=== PATIENT | female | born 1940 | race Caucasian/White ===

== ENCOUNTER 2017-03-22 11:22 | Inpatient (IN) | payer OTHER ==
[~2017-03-22] VITALS: Ht 160 cm; Wt 76.6 kg
[2017-03-22] VITALS (41 sets, daily range): BP systolic 80–112; BP diastolic 41–66; PULSE 61–89; TEMP 36.4–37.1; O2SAT 91–96; BMI 28.5
[~2017-03-22 11:22] MED LIST: ACET325T96 PO; ASCA500 PO; CALCTAB5 PO; GUAI1TAB55 PO; IPRASOL4 INH; METO25TA56 PO; MULT-506 PO; OXYC1TAB3 PO; PRAV20TA PO; SERT-234 PO
[2017-03-22] MEDS ORDERED: ASPI-435 PO (11:37)
[2017-03-22] MEDS ORDERED: CALCTAB7 PO (11:37)
[2017-03-22] MEDS ORDERED: CETI10TA84 PO (11:37)
[2017-03-22] MEDS ORDERED: SODIUM CHLORIDE 0.9% 1000ML 1,000 ML IV STA (12:03)
[2017-03-22] MEDS ORDERED: SODIUM CHLORIDE 0.9% 500ML 500 ML IV STA (12:03)
[2017-03-22] MEDS ORDERED: ALBUT/IPRATROP 3MG/0.5MG NEB 3 ML VIAL INH STA (12:03)
[2017-03-22] MEDS ORDERED: ACETAMINOPHEN 500 MG TAB PO STA (12:03)
[2017-03-22] MEDS ORDERED: METHYLPREDNISOLONE 125 MG VIAL IV STA (12:03)
[2017-03-22] MEDS ORDERED: LEVAQUIN 750MG / 150ML D5W IV STA (12:03)
--- NOTE | 2017-03-22 12:22 | DIAGNOSTIC IMAGING REPORT ---
CHEST ONE VIEW PORTABLE CLINICAL HISTORY: EVALUATE WEAKNESS dyspnea COMPARISON STUDY: 10/30/2016 FINDINGS: Diffuse parenchymal infiltrate throughout the left hemithorax. Right lung remains clear. Diaphragms are smooth. Costophrenic angles are sharp. IMPRESSION: Diffuse infiltrates throughout the left hemithorax. Electronically signed by: Dionisio Varner M.D. 03/22/2017 12:21 PM Dictated Date/Time: 03/22/2017 12:20 PM
[2017-03-22 12:42] LABS: BASO % 0.1 %; BASO ABS # 0.01 K/uL (0-0.2); COMPLETE YES; HEMATOCRIT 35.8 % (37-47); IG% 1.3 %; LYMPH % 3.2 %; LYMPH ABS # 0.55 K/uL (1.2-3.4); MEAN CELL VOLUME 91.3 fL (80-100); MEAN CORPUSCULAR HEMOGLOBIN 30.1 pg (25-34); MEAN PLATELET VOLUME 10.5 fL (7.4-10.4); MONO % 5.7 %; NEUT % 89.7 %; PLATELET COUNT 110 K/uL (130-400); RED BLOOD COUNT 3.92 M/uL (4.2-5.4); WHITE BLOOD COUNT 17.14 K/uL (4.8-10.8)
[2017-03-22 12:57] LABS: INR 1.2 (0.9-1.1); PROTHROMBIN TIME (PATIENT) 12.6 SECONDS (9.0-12.0)
[2017-03-22 13:01] LABS: ALT/SGPT 14 U/L (12-78); AST/SGOT 13 U/L (15-37); BLOOD UREA NITROGEN 33 mg/dl (7-18); CALCIUM 8.9 mg/dl (8.5-10.1); CARBON DIOXIDE 27 mmol/L (21-32); CHLORIDE 107 mmol/L (98-107); GLUCOSE 117 mg/dl (70-99); MAGNESIUM 2.2 mg/dl (1.8-2.4); POTASSIUM 3.9 mmol/L (3.5-5.1); SODIUM 141 mmol/L (136-145)
[2017-03-22 13:09] LABS: ALKALINE PHOSPHATASE 87 U/L (45-117)
[2017-03-22] MEDS ORDERED: PIPERACILLIN/TAZOBACTAM 4.5 GM/100ML D5W IV STA (13:12)
[2017-03-22 13:20] LABS: URINE APPEARANCE CLOUDY (CLEAR); URINE COLOR DK YELLOW; URINE NITRITE NEG (NEG); URINE PH 5.5 (4.5-7.5); URINE SPECIFIC GRAVITY 1.029 (1.000-1.030); UROBILINOGEN NEG (NEG)
[2017-03-22 13:25] LABS: MANUAL MICROSCOPIC REQUIRED? NO; REVIEW REQ? YES; URINE BILIRUBIN NEG (NEG)
[2017-03-22] MEDS ORDERED: SODIUM CHLORIDE 0.9% 1000ML 2,000 ML IV STA (13:32)
[2017-03-22] MEDS ORDERED: ONDANSETRON INJ 2 MG/ML 2 ML VIAL IV PRN (14:30)
[2017-03-22] MEDS ORDERED: ACETAMINOPHEN 325 MG TAB PO PRN (14:30)
[2017-03-22] MEDS ORDERED: ALEN70TA4 PO (14:54)
[2017-03-22] MEDS ORDERED: SERT-234 PO (14:54)
[2017-03-22] MEDS ORDERED: ADVIN25/60 INH (14:54)
[2017-03-22] MEDS ORDERED: PRAV40TA2 PO (14:54)
[2017-03-22] MEDS ORDERED: GUAIFENESIN 600 MG TABCR PO PRN (15:00)
[2017-03-22] MEDS ORDERED: ALBUT/IPRATROP 3MG/0.5MG NEB 3 ML VIAL INH PRN (15:00)
--- NOTE | 2017-03-22 15:06 | EMERGENCY ROOM VISIT NOTE ---
History Report prepared by Jairo: Gwen Stanton Under the Supervision of: Dr. Roberto Phelps M.D. First contact with patient: 11:53 Chief Complaint: FEVER Stated Complaint: HI/LOW BLOOD PRESSURE History of Present Illness The patient is a 77 year old female who presents to the Emergency Room with complaints of a persistent fever for the past few days. She is accompanied by her and daughter. Her daughter reports the patient went to [facility] in [place] for a routine scan yesterday and was found to have hypertension. She notes the patient was also "not acting like herself" after the appointment and has a history of COPD. She had pneumonia just a few months ago and is a current smoker. She complains of still feeling congested and intermittently short of breath. This morning, the patient was seen her PCP, Dr. Hayes and was found to have a fever of 101 degrees and low blood pressure. He referred the patient to the ED for further evaluation. She last took Tylenol for her fever last night. Last night the patient experienced diarrhea, but she states it has resolved. Pt denies LOC, headache, chills, diaphoresis, visual changes, neck pain, chest pain, nausea, vomiting, abdominal pain, back pain, melena, hematochezia, urinary symptoms, numbness, weakness, lymphadenopathy, rash, or other complaints. Source of History: patient, family Onset: past few days Position: other (global) Timing: other (persistent) Modifying Factors (Relieving): other (Acetaminophen) Associated Symptoms: + SOB, + diarrhea Review of Systems See HPI for pertinent positives and negatives. A total of ten systems were reviewed and were otherwise negative. Past Medical & Surgical Medical Problems: (1) AAA (abdominal aortic aneurysm) (2) CKD (chronic kidney disease), stage III (3) H/O: CVA (cerebrovascular accident) (4) Hip fracture (5) Pneumonia (6) Pulmonary nodule (7) Sepsis Surgical Problems: (1) S/P AAA repair Family History Diabetes mellitus Social History Smoking Status: Current Every Day Smoker Alcohol Use: none Drug Use: none Marital Status: Housing Status: lives with family Occupation Status: retired Current/Historical Medications Scheduled Alendronate Sodium (Fosamax), 1 TAB PO WK Ascorbic Acid (Vitamin C), 500 MG PO QAM Aspirin (Aspirin 81), 1 TAB PO QAM Calcium Carbonate-Vitamin D W/ (Caltrate 600 Plus), 1 TAB PO BID Fluticasone Prop/Salmeterol (Advair Diskus 250/50 60 Dose), 1 PUFF INH BID Metoprolol Tartrate (Lopressor) (Lopressor), 25 MG PO BID Multivitamin (Multivitamin), 1 TAB PO DAILY Pravastatin Sodium (Pravastatin Sodium), 1 TAB PO DAILY Sertraline (Zoloft), 100 MG PO DAILY Scheduled PRN Guaifenesin Ext Rel (Mucinex Ext Rel), 600 MG PO Q12 PRN for Cough Ipratropium-Albuterol (Duoneb), 1 TREATMENT INH QID PRN for SOB/Wheezing Allergies Coded Allergies: No Known Allergies (Unverified , 03/22/17) Physical Exam Vital Signs Date Time Temp Pulse Resp B/P Pulse Ox O2 Delivery O2 Flow Rate FiO2 03/22/17 14:01 83 18 92/57 95 Nasal Cannula 2.0 03/22/17 13:23 84 22 90/63 94 Nasal Cannula 2.0 84/43 03/22/17 12:30 95 03/22/17 12:20 80 22 103/56 97 Nasal Cannula 2.0 03/22/17 12:16 88 Room Air 03/22/17 11:29 37.5 80 16 107/53 92 Room Air Physical Exam GENERAL: Awake, alert, dyspneic-appearing, in no distress HENT: Normocephalic, atraumatic. Oropharynx unremarkable. EYES: Normal conjunctiva. Sclera non-icteric. NECK: Supple. No nuchal rigidity. FROM. No JVD. RESPIRATORY: Rhonchi bilaterally, worse on the left. CARDIAC: Regular rate, normal rhythm. Extremities warm and well perfused. Pulses equal. ABDOMEN: Soft, non-distended. No tenderness to palpation. No rebound or guarding. No masses. RECTAL: Deferred. MUSCULOSKELETAL: Chest examination reveals no tenderness. The back is symmetrical on inspection without obvious abnormality. There is no CVA tenderness to palpation. No joint edema. LOWER EXTREMITIES: Round rubbery mass along the medial right ankle, non-tender. Calves are equal size bilaterally and non-tender. No edema. No discoloration. NEURO: Normal sensorium. No sensory or motor deficits noted. SKIN: No rash or jaundice noted. Medical Decision & Procedures ER Provider Diagnostic Interpretation: This X-Ray was reviewed and interpreted by myself and the radiologist. CHEST ONE VIEW PORTABLE CLINICAL HISTORY: EVALUATE WEAKNESS dyspnea COMPARISON STUDY: 10/30/2016 FINDINGS: Diffuse parenchymal infiltrate throughout the left hemithorax. Right lung remains clear. Diaphragms are smooth. Costophrenic angles are sharp. IMPRESSION: Diffuse infiltrates throughout the left hemithorax. Electronically signed by: Dionisio Varner M.D. 03/22/2017 12:21 PM Laboratory Results 03/22/17 12:20 Red Blood Count 3.92, Mean Corpuscular Volume 91.3, Mean Corpuscular Hemoglobin 30.1, Mean Corpuscular Hemoglobin Concent 33.0, Mean Platelet Volume 10.5, Neutrophils (%) (Auto) 89.7, Lymphocytes (%) (Auto) 3.2, Monocytes (%) (Auto) 5.7, Eosinophils (%) (Auto) 0.0, Basophils (%) (Auto) 0.1, Neutrophils # (Auto) 15.39, Lymphocytes # (Auto) 0.55, Monocytes # (Auto) 0.97, Eosinophils # (Auto) 0.00, Basophils # (Auto) 0.01 03/22/17 12:20 Test 03/22/17 12:20 03/22/17 12:29 03/22/17 12:35 03/22/17 13:54 White Blood Count 17.14 K/uL (4.8-10.8) Red Blood Count 3.92 M/uL (4.2-5.4) Hemoglobin 11.8 g/dL (12.0-16.0) Hematocrit 35.8 % (37-47) Mean Corpuscular Volume 91.3 fL (80-100) Mean Corpuscular Hemoglobin 30.1 pg (25-34) Mean Corpuscular Hemoglobin Concent 33.0 g/dl (32-36) Platelet Count 110 K/uL (130-400) Mean Platelet Volume 10.5 fL (7.4-10.4) Neutrophils (%) (Auto) 89.7 % Lymphocytes (%) (Auto) 3.2 % Monocytes (%) (Auto) 5.7 % Eosinophils (%) (Auto) 0.0 % Basophils (%) (Auto) 0.1 % Neutrophils # (Auto) 15.39 K/uL (1.4-6.5) Lymphocytes # (Auto) 0.55 K/uL (1.2-3.4) Monocytes # (Auto) 0.97 K/uL (0.11-0.59) Eosinophils # (Auto) 0.00 K/uL (0-0.5) Basophils # (Auto) 0.01 K/uL (0-0.2) RDW Standard Deviation 47.8 fL (36.4-46.3) RDW Coefficient of Variation 14.3 % (11.5-14.5) Immature Granulocyte % (Auto) 1.3 % Immature Granulocyte # (Auto) 0.22 K/uL (0.00-0.02) Prothrombin Time 12.6 SECONDS (9.0-12.0) Prothromb Time International Ratio 1.2 (0.9-1.1) Activated Partial Thromboplast Time 25.0 SECONDS (21.0-31.0) Partial Thromboplastin Ratio 1.0 Anion Gap 7.0 mmol/L (3-11) Est Creatinine Clear Calc Drug Dose 29.6 ml/min Estimated GFR () 38.3 Estimated GFR (Non- 33.0 BUN/Creatinine Ratio 22.0 (10-20) Calcium Level 8.9 mg/dl (8.5-10.1) Magnesium Level 2.2 mg/dl (1.8-2.4) Total Bilirubin 0.8 mg/dl (0.2-1) Direct Bilirubin 0.3 mg/dl (0-0.2) Aspartate Amino Transf (AST/SGOT) 13 U/L (15-37) Alanine Aminotransferase (ALT/SGPT) 14 U/L (12-78) Alkaline Phosphatase 87 U/L (45-117) Total Creatine Kinase 54 U/L (26-192) Creatine Kinase MB < 0.5 ng/ml (0.5-3.6) Creatine Kinase MB Ratio (0-3.0) Troponin I < 0.015 ng/ml (0-0.045) Pro-B-Type Natriuretic Peptide 5069 pg/ml (0-1800) Total Protein 7.1 gm/dl (6.4-8.2) Albumin 2.8 gm/dl (3.4-5.0) Lipase 82 U/L (73-393) Thyroid Stimulating Hormone (TSH) 0.720 uIu/ml (0.300-4.500) Bedside Lactic Acid Venous 1.88 mmol/L (0.90-1.70) Urine Color DK YELLOW Urine Appearance CLOUDY (CLEAR) Urine pH 5.5 (4.5-7.5) Urine Specific [place] 1.029 (1.000-1.030) Urine Protein 2+ (NEG) Urine Glucose (UA) NEG (NEG) Urine Ketones TRACE (NEG) Urine Occult Blood 3+ (NEG) Urine Nitrite NEG (NEG) Urine Bilirubin NEG (NEG) Urine Urobilinogen NEG (NEG) Urine Leukocyte Esterase TRACE (NEG) Urine WBC (Auto) 1-5 /hpf (0-5) Urine RBC (Auto) 0-4 /hpf (0-4) Urine Hyaline Casts (Auto) 1-5 /lpf (0-5) Urine Epithelial Cells (Auto) 5-10 /lpf (0-5) Urine Bacteria (Auto) NEG (NEG) Urine Crystals See comments (NONE PRSENT) Urine Pathogenic Casts /lpf (0) Urine Yeast (Auto) (NONE PRSENT) Laboratory results reviewed by me Medications Administered Medications (Trade) Dose Ordered Sig/Tadeo Route Start Time Stop Time Status Last Admin Dose Admin Sodium Chloride 500 ml @ 999 mls/hr Q31M STAT IV 03/22/17 12:03 03/22/17 12:33 DC 03/22/17 12:03 999 MLS/HR Sodium Chloride (Nss 1000ml) 1,000 ml @ 125 mls/hr Q8H STAT IV 03/22/17 12:03 03/22/17 20:02 03/22/17 12:49 125 MLS/HR Acetaminophen (Tylenol Tab) 1,000 mg NOW STAT PO 03/22/17 12:03 03/22/17 12:05 DC 03/22/17 12:52 1,000 MG Levofloxacin (Levaquin / D5W) 750 mg NOW STAT IV 03/22/17 12:03 03/22/17 12:05 DC 03/22/17 12:48 750 MG Albuterol/ Ipratropium (Duoneb) 3 ml NOW STAT INH 03/22/17 12:03 03/22/17 12:05 DC 03/22/17 12:48 3 ML Methylprednisolone Sodium Succinate (Solu-Medrol IV) 125 mg NOW STAT IV 03/22/17 12:03 03/22/17 12:05 DC 03/22/17 12:51 125 MG Piperacillin Sod/ Tazobactam Sod 4.5 gm 4.5 gm NOW STAT IV 03/22/17 13:12 03/22/17 13:14 DC 03/22/17 13:23 4.5 GM Sodium Chloride (Nss 1000ml) 2,000 ml @ 999 mls/hr Q2H1M STAT IV 03/22/17 13:32 03/22/17 15:32 03/22/17 13:32 999 MLS/HR ECG Indication: other (fever) Rate (beats per minute): 77 Rhythm: sinus rhythm Findings: PAC, no acute ischemic change, no ectopy ED Course 1201: The patient was evaluated in room C8. A complete history and physical exam was performed. 1203: Solu-Medrol 125 mg IV, DuoNeb 3 ml INH, Levaquin 750 mg IV, Acetaminophen 1000 mg PO, NSS 1000 ml @ 125 mls/hr IV, NSS 500 ml @ 999 mls/hr IV. 1312: Zosyn 4.5 gm IV. 1320: I reevaluated the patient. I discussed my recommendation that she remain in the hospital for further evaluation and management. She verbalized complete understanding and agreement. Her blood pressure has decreased, so I will order a fluid bolus. 1332: NSS 2000 ml @ 999 mls/hr IV. 1338: I discussed the patients case with Mey Chun PA-C, [facility] Hospitalist. The patient will be further evaluated. 1344: I reevaluated the patient. Her blood pressure has improved and she is resting comfortably. Medical Decision Triage Nursing notes reviewed. The patient's presentation and history were concerning for respiratory issues and low blood pressure from the office. Etiologies such as pneumonia, COPD, reactive airway disease, CHF, cardiac ischemia, pulmonary embolism, pneumothorax, musculoskeletal, infections, gastrointestinal, as well as others were entertained. The patient was evaluated. She had a cough present. She had abnormal lung sounds and physical examination. Her O2 saturation was 89% on room air on my examination. The patient was given supplemental oxygen via nasal cannula and did well with this. She was given a Solu-Medrol dose and DuoNeb. Chest imaging was concerning for a left-sided pneumonia. The patient was started on IV Levaquin. Fluid hydration was done. The patient had some mild hypotension here. Her lactate was mildly elevated. She has a leukocytosis and mild anemia as well. Chemistry panel and LFTs were unremarkable. The patient had a slight elevation of lactate. She was given additional IV hydration with saline 2 total over 30 mL/kg. There is concern for sepsis. The patient responded to the IV fluid hydration. Consultation was made with internal medicine. The patient was evaluated in the emergency department for further management. The chart was completed utilizing [employer] Speech voice recognition software. Grammatical errors, random word insertions, pronoun errors, and incomplete sentences are an occasional consequence of this system due to software limitations, ambient noise, and hardware issues. Any formal questions or concerns about the content, text, or information contained within the body of this dictation should be directly addressed to the physician for clarification. Consults Time Called: 1313 Consulting Physician: Mey Chun PA-C, [facility] Hospitalist Returned Call: 1338 I discussed the patients case with Mey Chun PA-C, [facility] Hospitalist. The patient will be further evaluated. Impression Primary Impression: Pneumonia Additional Impression: Sepsis Critical Care I have personally spent greater than 30 minutes of critical care time in the direct management of this patient. This includes bedside care, interpretation of diagnostic studies, and testing, discussion with consultants, patient, and family members, and other required patient management activities. This 30 minutes is in excess of all separately billable procedures. Scribe Attestation The scribe's documentation has been prepared under my direction and personally reviewed by me in its entirety. I confirm that the note above accurately reflects all work, treatment, procedures, and medical decision making performed by me. Departure Information Dispostion Being Evaluated By Hospitalist Raz Jenkins M.D. (PCP) Patient Instructions My [facility] Problem Qualifiers Primary Impression: Pneumonia Pneumonia type: due to unspecified organism Laterality: left Lung location : unspecified part of lung Qualified Codes: J18.9 - Pneumonia, unspecified organism Additional Impression: Sepsis Sepsis type: sepsis due to unspecified organism Qualified Codes: A41.9 - Sepsis, unspecified organism
--- NOTE | 2017-03-22 15:38 | History and Physical ---
History & Physical Date & Time of Service: March 22, 2017 at 14:34 Chief Complaint: Hi/Low Blood Pressure Primary Care Physician: Raz Hayes M.D. History of Present Illness Source: patient, spouse ( at bedside), clinic records This is a 77 year old female with PMH of COPD, history of PE no longer on AC, history of AAA s/p repair, hx CVA without residual deficits, and other problems listed below who was sent to the ED from Dr. Hayes's office for fever and productive cough. Patient reports 2-3 day history of fever, chills, productive cough worsened from baseline. Temp was 101.[address] Hayes's office today. No increased SOB or wheezing from baseline. Denies aspiration. Had diarrhea a few days ago which resolved. Has been eating normally. Pt's states she is more "fidgety" for past few days but remained oriented x 3. Pt denies dizziness , [place], vision change, rhinorrhea, sore throat, chest pain, N/V, dysuria, frequency, urgency, abnormal bleeding. No sick contacts. No recent hospitalization. Pt was hypoxic to 88% on RA in ER and improved to 90s on 2 liters NC. No home oxygen use. Past Medical/Surgical History Medical Problems: (1) AAA (abdominal aortic aneurysm) Permanent Comment: s/p repair of ruptured AAA in 2010 Status: Resolved (2) CKD (chronic kidney disease), stage III Status: Chronic (3) COPD (chronic obstructive pulmonary disease) Status: Chronic (4) Depression Status: Chronic (5) H/O: CVA (cerebrovascular accident) Status: Chronic (6) History of pulmonary embolism Status: Chronic (7) HTN (hypertension) Status: Chronic (8) Hyperlipidemia Status: Chronic (9) Pulmonary nodule Status: Chronic (10) S/P ORIF (open reduction internal fixation) fracture Permanent Comment: left hip Status: Chronic Surgical Problems: (1) S/P AAA repair Permanent Comment: s/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 Desir with bifurcated graft, left femoral thromboendarterectomy with patch angioplasty, right femoral thromboendarterectomy, and right iliofemoral bypass Status: Chronic (2) S/P laparotomy Permanent Comment: 10/16/11- abdominal exploration, wound vac placement; 10/18/11 - abdominal washout and closure. Status: Chronic Family History Diabetes mellitus Social History Smoking Status: Current Some Day Smoker (prior 1-1.5 ppd x 50 years. now "occasionally sneaks a cigarette") Alcohol Use: none Marital Status: Housing status: lives with family (with , daughter, grandson) Occupational Status: retired Allergies Coded Allergies: No Known Allergies (Unverified , 03/22/17) Home Medications Scheduled Alendronate Sodium (Fosamax), 1 TAB PO WK Ascorbic Acid (Vitamin C), 500 MG PO QAM Aspirin (Aspirin 81), 1 TAB PO QAM Calcium Carbonate-Vitamin D W/ (Caltrate 600 Plus), 1 TAB PO BID Fluticasone Prop/Salmeterol (Advair Diskus 250/50 60 Dose), 1 PUFF INH BID Metoprolol Tartrate (Lopressor) (Lopressor), 25 MG PO BID Multivitamin (Multivitamin), 1 TAB PO DAILY Pravastatin Sodium (Pravastatin Sodium), 1 TAB PO DAILY Sertraline (Zoloft), 100 MG PO DAILY Scheduled PRN Guaifenesin Ext Rel (Mucinex Ext Rel), 600 MG PO Q12 PRN for Cough Ipratropium-Albuterol (Duoneb), 1 TREATMENT INH QID PRN for SOB/Wheezing Review of Systems Ten systems reviewed and negative except as listed in HPI. Physical Exam Vital Signs Date Time Temp Pulse Resp B/P Pulse Ox O2 Delivery O2 Flow Rate FiO2 03/22/17 14:01 83 18 92/57 95 Nasal Cannula 2.0 03/22/17 13:23 84 22 90/63 94 Nasal Cannula 2.0 84/43 03/22/17 12:30 95 03/22/17 12:20 80 22 103/56 97 Nasal Cannula 2.0 03/22/17 12:16 88 Room Air 03/22/17 11:29 37.5 80 16 107/53 92 Room Air General Appearance: WD/WN, no apparent distress, + pertinent finding (pleasant alert elderly female, not in distress) Head: normocephalic, atraumatic Eyes: normal inspection, PERRL, EOMI, sclerae normal ENT: hearing grossly normal, pharynx normal Neck: supple, trachea midline Respiratory/Chest: no respiratory distress, no accessory muscle use, + rhonchi (scattered rhonchi), + wheezing (trace expiratory wheezing), + pertinent finding (saturating well on 2L. able to speak full sentences. ) Cardiovascular: regular rate, rhythm, no murmur, normal peripheral pulses Abdomen/GI: normal bowel sounds, non tender, soft Extremities/Musculoskelatal: no calf tenderness, normal capillary refill, no pedal edema Neurologic/Psych: alert, normal mood/affect, oriented x 3, + pertinent finding (no focal deficit on gross examination) Skin: normal color, warm/dry Diagnostics Laboratory Results Results Past 24 Hours Test 03/22/17 12:20 03/22/17 12:29 03/22/17 12:35 03/22/17 13:54 Range/Units White Blood Count 17.14 4.8-10.8 K/uL Red Blood Count 3.92 4.2-5.4 M/uL Hemoglobin 11.8 12.0-16.0 g/dL Hematocrit 35.8 37-47 % Mean Corpuscular Volume 91.3 80-100 fL Mean Corpuscular Hemoglobin 30.1 25-34 pg Mean Corpuscular Hemoglobin Concent 33.0 32-36 g/dl Platelet Count 110 130-400 K/uL Mean Platelet Volume 10.5 7.4-10.4 fL Neutrophils (%) (Auto) 89.7 % Lymphocytes (%) (Auto) 3.2 % Monocytes (%) (Auto) 5.7 % Eosinophils (%) (Auto) 0.0 % Basophils (%) (Auto) 0.1 % Neutrophils # (Auto) 15.39 1.4-6.5 K/uL Lymphocytes # (Auto) 0.55 1.2-3.4 K/uL Monocytes # (Auto) 0.97 0.11-0.59 K/uL Eosinophils # (Auto) 0.00 0-0.5 K/uL Basophils # (Auto) 0.01 0-0.2 K/uL RDW Standard Deviation 47.8 36.4-46.3 fL RDW Coefficient of Variation 14.3 11.5-14.5 % Immature Granulocyte % (Auto) 1.3 % Immature Granulocyte # (Auto) 0.22 0.00-0.02 K/uL Prothrombin Time 12.6 9.0-12.0 SECONDS Prothromb Time International Ratio 1.2 0.9-1.1 Activated Partial Thromboplast Time 25.0 21.0-31.0 SECONDS Partial Thromboplastin Ratio 1.0 Sodium Level 141 136-145 mmol/L Potassium Level 3.9 3.5-5.1 mmol/L Chloride Level 107 98-107 mmol/L Carbon Dioxide Level 27 21-32 mmol/L Anion Gap 7.0 3-11 mmol/L Blood Urea Nitrogen 33 7-18 mg/dl Creatinine 1.50 0.60-1.20 mg/dl Est Creatinine Clear Calc Drug Dose 29.6 ml/min Estimated GFR () 38.3 Estimated GFR (Non- 33.0 BUN/Creatinine Ratio 22.0 10-20 Random Glucose 117 70-99 mg/dl Calcium Level 8.9 8.5-10.1 mg/dl Magnesium Level 2.2 1.8-2.4 mg/dl Total Bilirubin 0.8 0.2-1 mg/dl Direct Bilirubin 0.3 0-0.2 mg/dl Aspartate Amino Transf (AST/SGOT) 13 15-37 U/L Alanine Aminotransferase (ALT/SGPT) 14 12-78 U/L Alkaline Phosphatase 87 45-117 U/L Total Creatine Kinase 54 26-192 U/L Creatine Kinase MB < 0.5 0.5-3.6 ng/ml Creatine Kinase MB Ratio 0-3.0 Troponin I < 0.015 0-0.045 ng/ml Pro-B-Type Natriuretic Peptide 5069 0-1800 pg/ml Total Protein 7.1 6.4-8.2 gm/dl Albumin 2.8 3.4-5.0 gm/dl Lipase 82 73-393 U/L Thyroid Stimulating Hormone (TSH) 0.720 0.300-4.500 uIu/ml Bedside Lactic Acid Venous 1.88 0.90-1.70 mmol/L Urine Color DK YELLOW Urine Appearance CLOUDY CLEAR Urine pH 5.5 4.5-7.5 Urine Specific [place] 1.029 1.000-1.030 Urine Protein 2+ NEG Urine Glucose (UA) NEG NEG Urine Ketones TRACE NEG Urine Occult Blood 3+ NEG Urine Nitrite NEG NEG Urine Bilirubin NEG NEG Urine Urobilinogen NEG NEG Urine Leukocyte Esterase TRACE NEG Urine WBC (Auto) 1-5 0-5 /hpf Urine RBC (Auto) 0-4 0-4 /hpf Urine Hyaline Casts (Auto) 1-5 0-5 /lpf Urine Epithelial Cells (Auto) 5-10 0-5 /lpf Urine Bacteria (Auto) NEG NEG Urine Crystals See comments NONE PRSENT Urine Pathogenic Casts 0 /lpf Urine Yeast (Auto) NONE PRSENT Microbiology Results 03/22/17 Blood Culture, Received Pending 03/22/17 Blood Culture, Received Pending 03/22/17 Urine Culture, Received Pending Diagnostic Radiology CHEST ONE VIEW PORTABLE CLINICAL HISTORY: EVALUATE WEAKNESS dyspnea COMPARISON STUDY: 10/30/2016 FINDINGS: Diffuse parenchymal infiltrate throughout the left hemithorax. Right lung remains clear. Diaphragms are smooth. Costophrenic angles are sharp. IMPRESSION: Diffuse infiltrates throughout the left hemithorax. EKG NSR with occasional PAC, 77 bpm, no ST abnormality Impression Assessment and Plan ACUTE HYPOXIA, POSSIBLE SEPSIS Secondary to CAP in patient with underlying COPD Was hypoxic to 88% on RA; improved to 90s on 2 liters; not on home O2 CXR- diffuse left sided infiltrates Concern for sepsis due to fever of 101.7F [employer] ->afebrile in ER; +WBC 17k, HR > 90 x 1 but no sustained tachycardia; + 1 episode hypotension to 80s systolic -> improved to SBP >90 with IVF's (receiving total of 3500 mL); POC lactic acid 1.88 -> serum lactic acid pending Blood cultures pending; check sputum cx; UA not convincing for infection; urine cx pending Received empiric broad spectrum abx in ER- Zosyn and Levaquin PRN Duonebs Change antibiotics to Rocephin and azithromycin Continue supplemental O2 per protocol RADHA on CKD STAGE III Creat 1.5 from baseline approx 1.0 Possibly due to sepsis, volume loss from recent diarrhea- resolved Monitor renal function Avoid nephrotoxins when able COPD Received Duoneb and IV Solu-Medrol in ER for ? exacerbation No further steroids for now PRN Duonebs Continue Advair HYPERTENSION BP running on low side Continue Lopressor with holding parameters DYSLIPIDEMIA Continue statin H/O DEPRESSION Stable; continue Zoloft DVT PROPHYLAXIS Heparin SQ CODE STATUS Full code per my discussion with the patient DISPOSITION Admit to telemetry Lives with and daughter Follows with Dr. Hayes for primary care Patient seen in collaboration with Dr. Stevenson. Please see his addendum. VTE Prophylaxis VTE Risk Assessment Done? Y/N: Yes Risk Level: Moderate
--- NOTE | 2017-03-22 15:38 | History and Physical ---
History & Physical Date of Service March 22, 2017. History & Physical This is a 77 year old female with a PMH of COPD and occasional tobacco use, hx. 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 of CVA with no residual symptoms, CKD stage 3, presents with fevers, confusion, productive cough. She was seen by Dr. Hayes today and was told to come to the ER for further evaluation. I saw her in the ER, she feels weak, productive cough, fevers/chills. States that this began about three days ago. states she was slightly confused. He states she may have dementia, but it was worse than usual. Her breathing slightly better with antibiotics; she was given Levaquin + Zosyn and Solu- medrol in the ER. VITALS: Last Vital Signs Documentation Date Time Temp Pulse Resp B/P Pulse Ox O2 Delivery O2 Flow Rate FiO2 03/22/17 15:07 37.0 03/22/17 15:06 75 18 96 Nasal Cannula 2.0 GEN: no acute distress HEENT: NCAT CVS: +tachycardia, RRR LUNGS: +end expiratory wheezing, decreased breath sounds ABD: normal bowel sounds, non-tender, +scar EXT: no edema Sepsis secondary to Community Acquired Pneumonia presented with fevers, leukocytosis, tachycardia, productive cough CXR done - diffuse infiltrates at left hemithorax given Zosyn + Levaquin in the ER will switch to Rocephin + Azithromycin nebulizers as need will hold off on prednisone or steroid use repeat CXR in AM given 3.5L of fluids in the ER; repeat lactic acid pending (POC ~ 1.88)
[2017-03-22] MEDS ORDERED: ALBUT/IPRATROP 3MG/0.5MG NEB 3 ML VIAL INH SCH (16:00)
[2017-03-22] MEDS: CEFTRIAXONE SOD INJ 1 GM in DEXTROSE 5% ADD-VANTAGE 50ML 50 ML IV SCH (17:17)
[2017-03-22] MEDS ORDERED: SODIUM CHLORIDE 0.9% 1000ML 1,000 ML IV SCH (18:30)
[2017-03-22] MEDS: AZITHROMYCIN IV 500 MG in DEXTROSE 5% 250ML 250 ML IV SCH (20:36)
[2017-03-22] MEDS: CALCIUM 600MG + VIT D 400 IU TAB PO SCH (20:37)
[2017-03-22] MEDS: METOPROLOL TARTRATE 25 MG TAB PO SCH (20:37)
[2017-03-22] MEDS: FLUTICASONE/SALMETEROL 250/50 (ADVAIR) 14 PUFF/1 INHALER INH SCH (20:37)
[2017-03-22] MEDS: HEPARIN SOD 5000 UNIT/0.5 ML CARP SQ SCH (20:38)
[2017-03-23] VITALS (12 sets, daily range): BP systolic 91–121; BP diastolic 42–71; PULSE 61–80; TEMP 36.6; O2SAT 94–98; Ht 160 cm; Wt 76.6 kg
[2017-03-23] MEDS: HEPARIN SOD 5000 UNIT/0.5 ML CARP SQ SCH ×3 (05:46→20:44)
[2017-03-23 07:53] LABS: HEMATOCRIT 34.1 % (37-47); MEAN CELL VOLUME 91.2 fL (80-100); MEAN CORPUSCULAR HEMOGLOBIN 28.9 pg (25-34); MEAN CORPUSCULAR HGB CONC 31.7 g/dl (32-36); RED BLOOD COUNT 3.74 M/uL (4.2-5.4); WHITE BLOOD COUNT 11.38 K/uL (4.8-10.8)
[2017-03-23 08:24] LABS: MEAN PLATELET VOLUME 10.7 fL (7.4-10.4); PLATELET COUNT 95 K/uL (130-400)
[2017-03-23 08:41] LABS: BUN/CREATININE RATIO 33.5 (10-20); CREATININE 0.88 mg/dl (0.60-1.20); POTASSIUM 3.8 mmol/L (3.5-5.1)
[2017-03-23 09:01] LABS: CALCIUM 8.2 mg/dl (8.5-10.1)
[2017-03-23] MEDS: SERTRALINE HCL 100 MG TAB PO SCH (09:08)
[2017-03-23] MEDS: MULTIVITAMIN TAB PO SCH (09:08)
[2017-03-23] MEDS: FLUTICASONE/SALMETEROL 250/50 (ADVAIR) 14 PUFF/1 INHALER INH SCH ×2 (09:08→20:42)
[2017-03-23] MEDS: ASCORBIC ACID 500 MG TAB PO SCH (09:08)
[2017-03-23] MEDS: PRAVASTATIN SOD 40 MG TAB PO SCH (09:09)
[2017-03-23] MEDS: CALCIUM 600MG + VIT D 400 IU TAB PO SCH ×2 (09:09→20:42)
[2017-03-23] MEDS: METOPROLOL TARTRATE 25 MG TAB PO SCH ×2 (09:09→20:43)
[2017-03-23] MEDS: ASPIRIN 81 MG ECTAB PO SCH (09:09)
--- NOTE | 2017-03-23 09:26 | DIAGNOSTIC IMAGING REPORT ---
CHEST 2 VIEWS ROUTINE CLINICAL HISTORY: f/u infiltrates pneumonia COMPARISON STUDY: 03/22/2017 FINDINGS: Unchanging diffuse parenchymal infiltrative process left hemithorax. Right lung remains generally clear. Interval development of a small left effusion. IMPRESSION: Diffuse left hemithoracic infiltrates stable from the prior exam. Trace pleural effusion left lung base. Electronically signed by: Dionisio Varner M.D. 03/23/2017 9:25 AM Dictated Date/Time: 03/23/2017 9:24 AM
[2017-03-23] MEDS: CEFTRIAXONE SOD INJ 1 GM in DEXTROSE 5% ADD-VANTAGE 50ML 50 ML IV SCH (16:22)
--- NOTE | 2017-03-23 19:59 | Progress Note ---
Medicine Progress Note Date & Time of Visit: March 23, 2017 at 09:40 . Subjective Admitted yesterday with pneumonia. Feels better. No fever. Cough improved; productive of some sputum. No chest pain. No nausea, vomiting, diarrhea. . Objective Last 8 Hrs Date Time Temp Pulse Resp B/P Pulse Ox O2 Delivery O2 Flow Rate FiO2 03/23/17 19:40 36.6 74 74 104/51 97 Nasal Cannula 2.0 03/23/17 16:05 36.6 71 18 107/49 97 Nasal Cannula 2.0 03/23/17 16:00 98 Nasal Cannula 2.0 03/23/17 12:33 36.6 80 16 121/71 95 03/23/17 12:00 96 Nasal Cannula 2.0 Physical Exam: General- no distress Neck- no JVD Lungs- diffuse moderate wheezing, scattered rhonchi Heart- RRR Abdomen- + BS, soft, nontender Extremities- no pretibial edema or calf tenderness Neuro- alert . Laboratory Results: Last 24 Hours Test 03/23/17 07:10 White Blood Count 11.38 K/uL Red Blood Count 3.74 M/uL Hemoglobin 10.8 g/dL Hematocrit 34.1 % Mean Corpuscular Volume 91.2 fL Mean Corpuscular Hemoglobin 28.9 pg Mean Corpuscular Hemoglobin Concent 31.7 g/dl RDW Standard Deviation 47.9 fL RDW Coefficient of Variation 14.2 % Platelet Count 95 K/uL Mean Platelet Volume 10.7 fL Sodium Level 142 mmol/L Potassium Level 3.8 mmol/L Chloride Level 111 mmol/L Carbon Dioxide Level 22 mmol/L Anion Gap 9.0 mmol/L Blood Urea Nitrogen 30 mg/dl Creatinine 0.88 mg/dl Est Creatinine Clear Calc Drug Dose 52.5 ml/min Estimated GFR () 72.9 Estimated GFR (Non- 62.9 BUN/Creatinine Ratio 33.5 Random Glucose 129 mg/dl Calcium Level 8.2 mg/dl Date/Time Source Procedure Growth Status 03/23/17 00:00 Nasal MRSA DNA Surveillance Screen - Final Specimen Negative for MRSA by DNA Probe Complete 03/23/17 15:53 Sputum Expectorated Sputum Gram Stain Pending Received 03/23/17 15:53 Sputum Expectorated Sputum Sputum Culture Pending Received Assessment & Plan PNEUMONIA Community acquired pneumonia, underlying COPD. Receiving azithromycin and ceftriaxone with clinical improvement and declining WBC's. 1/2 blood cultures growing gram positive cocci. Check sputum gram stain, C&S. Nasal MRSA negative, so MRSA pneumonia unlikely. Will need adjustments for Pseudomonas coverage if improvement does not continue. COPD Exacerbation due to pneumonia. Continue nebs. May benefit from short course of steroids. HYPERTENSION BP a bit low. Reduce metoprolol dose. Follow. VTE PROPHYLAXIS SQ heparin. Ambulate. DISPOSITION Expected discharge to home. Family Medicine follow-up with Dr. Hayes. . Current Inpatient Medications: Current Inpatient Medications Medications (Trade) Dose Ordered Sig/Tadeo Route Start Time Stop Time Status Last Admin Dose Admin Heparin Sodium (Porcine) (Heparin Sq 5000 Unit/0.5ml) 5,000 unit Q8 SQ 03/22/17 22:00 04/21/17 21:59 03/23/17 16:22 5,000 UNIT Acetaminophen (Tylenol Tab) 650 mg Q4H PRN PO 03/22/17 14:30 04/21/17 14:29 Ondansetron HCl 4 mg 4 mg Q6H PRN IV 03/22/17 14:30 04/21/17 14:29 Ceftriaxone Sodium 1 gm/ Dextrose 50 ml @ 100 mls/hr Q24H IV 03/22/17 18:00 03/29/17 17:59 03/23/17 16:22 100 MLS/HR Azithromycin/ Dextrose (Zithromax IV/D5 250ml) 255 ml @ 125 mls/hr Q24H IV 03/22/17 20:00 03/29/17 19:59 03/22/17 20:36 125 MLS/HR Albuterol/ Ipratropium (Duoneb) 3 ml Q4R PRN INH 03/22/17 15:00 04/21/17 14:59 Alendronate Sodium (Fosamax Tab) 70 mg Th@0630 PO 03/28/17 06:30 04/27/17 06:29 Ascorbic Acid (Vitamin C Tab) 500 mg QAM PO 03/23/17 09:00 04/22/17 08:59 03/23/17 09:08 500 MG Aspirin (Ecotrin Tab) 81 mg QAM PO 03/23/17 09:00 04/22/17 08:59 03/23/17 09:09 81 MG Calcium/Vitamin D (Caltrate Plus Tab) 1 tab BID PO 03/22/17 21:00 04/21/17 20:59 03/23/17 09:09 1 TAB Salmeterol Xinafoate/ Fluticasone (Advair Diskus 250/50 Inh) 1 puff BID INH 03/22/17 21:00 04/21/17 20:59 03/23/17 09:08 1 PUFF Guaifenesin (Mucinex Contr Rel Tab) 600 mg Q12 PRN PO 03/22/17 15:00 04/21/17 14:59 03/23/17 09:08 600 MG Metoprolol Tartrate (Lopressor Tab) 25 mg BID PO 03/22/17 21:00 04/21/17 20:59 03/23/17 09:09 25 MG Multivitamins (Multivitamin Tab) 1 tab DAILY PO 03/23/17 09:00 04/22/17 08:59 03/23/17 09:08 1 TAB Pravastatin Sodium (Pravachol Tab) 40 mg DAILY PO 03/23/17 09:00 04/22/17 08:59 03/23/17 09:09 40 MG Sertraline HCl (Zoloft Tab) 100 mg DAILY PO 03/23/17 09:00 04/22/17 08:59 03/23/17 09:08 100 MG
[2017-03-23] MEDS ORDERED: METHYLPREDNISOLONE IV 40 MG in SYRINGE 0 ML IV ONE (20:00)
[2017-03-23] MEDS: AZITHROMYCIN IV 500 MG in DEXTROSE 5% 250ML 250 ML IV SCH (20:23)
[2017-03-24] VITALS (11 sets, daily range): BP systolic 107–144; BP diastolic 62–76; PULSE 71–82; TEMP 36.3–36.8; O2SAT 92–97
[2017-03-24] MEDS: HEPARIN SOD 5000 UNIT/0.5 ML CARP SQ SCH ×3 (05:49→21:07)
[2017-03-24] MEDS: CALCIUM 600MG + VIT D 400 IU TAB PO SCH ×2 (09:01→21:05)
[2017-03-24] MEDS: FLUTICASONE/SALMETEROL 250/50 (ADVAIR) 14 PUFF/1 INHALER INH SCH ×2 (09:01→21:04)
[2017-03-24] MEDS: METOPROLOL TARTRATE 25 MG TAB PO SCH ×2 (09:02→21:08)
[2017-03-24] MEDS: ASPIRIN 81 MG ECTAB PO SCH (09:02)
[2017-03-24] MEDS: MULTIVITAMIN TAB PO SCH (09:02)
[2017-03-24] MEDS: ASCORBIC ACID 500 MG TAB PO SCH (09:03)
[2017-03-24] MEDS: PRAVASTATIN SOD 40 MG TAB PO SCH (09:03)
[2017-03-24] MEDS: SERTRALINE HCL 100 MG TAB PO SCH (09:03)
--- NOTE | 2017-03-24 11:55 | Progress Note ---
Medicine Progress Note Date & Time of Visit: March 24, 2017 at 11:00 . Subjective Feeling better. No fever or chills. Persistent cough, minimally productive. Mild SOB. Weaned off O2. No CP. No nausea, vomiting, diarrhea. . Objective Last 8 Hrs Date Time Temp Pulse Resp B/P Pulse Ox O2 Delivery O2 Flow Rate FiO2 03/24/17 09:15 95 Nasal Cannula 1.0 03/24/17 08:34 36.7 82 16 130/64 94 Nasal Cannula 03/24/17 04:00 36.8 71 16 113/65 97 Nasal Cannula 2.0 03/24/17 04:00 Nasal Cannula 2.0 Physical Exam: General- no distress Neck- no JVD Lungs- diffuse mild wheezing, scattered rhonchi Heart- RRR Abdomen- + BS, soft, nontender Extremities- no pretibial edema or calf tenderness Neuro- alert . Laboratory Results: Date/Time Source Procedure Growth Status 03/23/17 15:53 Sputum Expectorated Sputum Gram Stain - Final Resulted 03/23/17 15:53 Sputum Expectorated Sputum Sputum Culture - Preliminary PIN-POINT GROWTH PRESENT, REINCUBATING. Resulted Assessment & Plan PNEUMONIA Community acquired pneumonia, underlying COPD. Receiving azithromycin and ceftriaxone with clinical improvement and declining WBC's. 1/2 blood cultures growing gram positive cocci = Strep pneumoniae, sensitivities pending. Sputum culture negative so far. Continue azithromycin and ceftriaxone. ACUTE KIDNEY INJURY Serum creatinine 1.5 at time of admission. Probable acute kidney injury due to volume depletion. Received IV fluids with improvement. Creatinine 03/23/17 was 0.88. COPD Exacerbation due to pneumonia. Continue nebs + short course of steroids. HYPERTENSION BP a bit low. Reduced metoprolol dose. Follow. VTE PROPHYLAXIS SQ heparin. Ambulate. DISPOSITION Expected discharge to home. Family Medicine follow-up with Dr. Hayes. . Current Inpatient Medications: Current Inpatient Medications Medications (Trade) Dose Ordered Sig/Tadeo Route Start Time Stop Time Status Last Admin Dose Admin Heparin Sodium (Porcine) (Heparin Sq 5000 Unit/0.5ml) 5,000 unit Q8 SQ 03/22/17 22:00 04/21/17 21:59 03/24/17 05:49 5,000 UNIT Acetaminophen (Tylenol Tab) 650 mg Q4H PRN PO 03/22/17 14:30 04/21/17 14:29 Ondansetron HCl 4 mg 4 mg Q6H PRN IV 03/22/17 14:30 04/21/17 14:29 Ceftriaxone Sodium 1 gm/ Dextrose 50 ml @ 100 mls/hr Q24H IV 03/22/17 18:00 03/29/17 17:59 03/23/17 16:22 100 MLS/HR Azithromycin/ Dextrose (Zithromax IV/D5 250ml) 255 ml @ 125 mls/hr Q24H IV 03/22/17 20:00 03/29/17 19:59 03/23/17 20:23 125 MLS/HR Albuterol/ Ipratropium (Duoneb) 3 ml Q4R PRN INH 03/22/17 15:00 04/21/17 14:59 Alendronate Sodium (Fosamax Tab) 70 mg Th@0630 PO 03/28/17 06:30 04/27/17 06:29 Ascorbic Acid (Vitamin C Tab) 500 mg QAM PO 03/23/17 09:00 04/22/17 08:59 03/24/17 09:03 500 MG Aspirin (Ecotrin Tab) 81 mg QAM PO 03/23/17 09:00 04/22/17 08:59 03/24/17 09:02 81 MG Calcium/Vitamin D (Caltrate Plus Tab) 1 tab BID PO 03/22/17 21:00 04/21/17 20:59 03/24/17 09:01 1 TAB Salmeterol Xinafoate/ Fluticasone (Advair Diskus 250/50 Inh) 1 puff BID INH 03/22/17 21:00 04/21/17 20:59 03/24/17 09:01 1 PUFF Guaifenesin (Mucinex Contr Rel Tab) 600 mg Q12 PRN PO 03/22/17 15:00 04/21/17 14:59 03/23/17 09:08 600 MG Multivitamins (Multivitamin Tab) 1 tab DAILY PO 03/23/17 09:00 04/22/17 08:59 03/24/17 09:02 1 TAB Pravastatin Sodium (Pravachol Tab) 40 mg DAILY PO 03/23/17 09:00 04/22/17 08:59 03/24/17 09:03 40 MG Sertraline HCl (Zoloft Tab) 100 mg DAILY PO 03/23/17 09:00 04/22/17 08:59 03/24/17 09:03 100 MG Metoprolol Tartrate (Lopressor Tab) 12.5 mg BID PO 03/23/17 21:00 04/22/17 20:59 03/24/17 09:02 12.5 MG Prednisone (PredniSONE TAB) 40 mg DAILY PO 03/24/17 09:00 04/23/17 08:59 03/24/17 09:03 40 MG
[2017-03-24] MEDS: CEFTRIAXONE SOD INJ 1 GM in DEXTROSE 5% ADD-VANTAGE 50ML 50 ML IV SCH (18:13)
[2017-03-24] MEDS: AZITHROMYCIN IV 500 MG in DEXTROSE 5% 250ML 250 ML IV SCH (20:08)
[2017-03-25] MEDS: HEPARIN SOD 5000 UNIT/0.5 ML CARP SQ SCH ×3 (05:59→20:14)
[2017-03-25 07:31] VITALS: BP 163/84; PULSE 74; TEMP 37; O2SAT 93
[2017-03-25] MEDS: FLUTICASONE/SALMETEROL 250/50 (ADVAIR) 14 PUFF/1 INHALER INH SCH ×2 (07:59→20:11)
[2017-03-25] MEDS: ASPIRIN 81 MG ECTAB PO SCH (08:00)
[2017-03-25] MEDS: CALCIUM 600MG + VIT D 400 IU TAB PO SCH ×2 (08:00→20:12)
[2017-03-25] MEDS: MULTIVITAMIN TAB PO SCH (08:00)
[2017-03-25] MEDS: PRAVASTATIN SOD 40 MG TAB PO SCH (08:00)
[2017-03-25] MEDS: ASCORBIC ACID 500 MG TAB PO SCH (08:01)
[2017-03-25] MEDS: SERTRALINE HCL 100 MG TAB PO SCH (08:01)
[2017-03-25] MEDS: METOPROLOL TARTRATE 25 MG TAB PO SCH ×2 (08:02→20:12)
--- NOTE | 2017-03-25 10:04 | Clinical Documentation Query ---
QUERY 1 OF [address] HAGER, The diagnosis of sepsis appeared in both the ER impression and the H/P. It has since been removed from the progress notes. In your clinical opinion is this patient being managed for: ( ) Sepsis, POA ( ) Sepsis ruled out (x ) Other explanation of clinical findings (Please Explain) ( ) Unable to determine (Please Define) ( ) Need to Discuss ( ) Not Agree DID NOT APPEAR TO HAVE DEFINITE SEPSIS WAS AFEBRILE. NOT TACHYCARDIC. INCREASED RR PROBABLY DUE TO PNEUMONIA. DECREASED BP PROBABLY DUE TO DEHYDRATION. Please clarify and document your clinical opinion in the progress notes and discharge summary. Terms such as "probable", "suspected", "likely", "questionable", "possible", or "still to be ruled out" are acceptable. QUERY 2 OF 2 In your clinical opinion is this patient being managed for: ( x ) Metabolic encephalopathy ( ) Other explanation of clinical findings (Please Explain) ( ) Unable to determine (Please Define) ( ) Need to Discuss ( ) Not Agree The medical record reflects the following clinical findings, treatment, and risk factors. Clinical Indicators: 77 yo female presenting with pneumonia and COPD exacerbation. She is described in the H/P as being slightly confused, worse than usual. Temp reportedly 101 at PCP's office. Cr 1.50 Treatment: IV fluid boluses then continuous, po APAP, IV levaquin, IV solumedrol, duonebs, IV zosyn, O2 support, IV Rocephin, IV azithromycin, blood and urine cx Risk Factors: age,? of dementia, pneumonia, RADHA Please clarify and document your clinical opinion in the progress notes and discharge summary. Terms such as "probable", "suspected", "likely", "questionable", "possible", or "still to be ruled out" are acceptable. IF IN AGREEMENT, YOU MUST DOCUMENT ABOVE DIAGNOSTIC STATEMENT IN DAILY PROGRESS NOTES AND DISCHARGE SUMMARY. This document is not part of the patient's record. Thank You, Sandi Noel, RN [phone]
[2017-03-25 15:32] VITALS: BP 152/80; PULSE 74; TEMP 36.8; O2SAT 95
[2017-03-25] MEDS: CEFTRIAXONE SOD INJ 1 GM in DEXTROSE 5% ADD-VANTAGE 50ML 50 ML IV SCH (18:06)
[2017-03-25] MEDS: AZITHROMYCIN IV 500 MG in DEXTROSE 5% 250ML 250 ML IV SCH (20:11)
--- NOTE | 2017-03-25 23:19 | Progress Note ---
Medicine Progress Note Date & Time of Visit: March 25, 2017 at 09:45 . Subjective No fever or chills. Persistent congested cough. Less SOB. No chest pain. No nausea or vomiting. Had 2 loose stools this morning. . Objective Last 8 Hrs Date Time Temp Pulse Resp B/P Pulse Ox O2 Delivery O2 Flow Rate FiO2 03/25/17 20:00 Room Air 03/25/17 16:00 Room Air 03/25/17 15:32 36.8 74 16 152/80 95 Room Air Physical Exam: General- no distress Neck- no JVD Lungs- diffuse mild wheezing, few scattered rhonchi Heart- RRR Abdomen- + BS, soft, nontender Extremities- no pretibial edema or calf tenderness Neuro- alert . Assessment & Plan PNEUMONIA Presented with cough and reported fever. Chest x-ray demonstrated left lung infiltrates. Community acquired pneumonia, underlying COPD. Not overtly septic- no documented fever, not tachycardic, tachypnea probably due to pneumonia, hypotension probably due to dehydration. Receiving azithromycin and ceftriaxone with clinical improvement and declining WBC's. 1/2 blood cultures grew gram positive cocci = Strep pneumoniae, penicillin susceptible. Sputum culture growing Aspergillus sp. Suspect colonization, but will need to be followed. Continue azithromycin and ceftriaxone. ACUTE KIDNEY INJURY Serum creatinine 1.5 at time of admission. Probable acute kidney injury due to volume depletion. Received IV fluids with improvement. Creatinine 03/23/17 was 0.88. COPD Exacerbation due to pneumonia. Continue nebs + short course of steroids. HYPERTENSION BP low at times, probably due to dehydration. Reduced metoprolol dose. Follow. DIARRHEA 2 loose stools today. Check for C diff. VTE PROPHYLAXIS SQ heparin. Ambulate. DISPOSITION Expected discharge to home. Family Medicine follow-up with Dr. Hayes. . Current Inpatient Medications: Current Inpatient Medications Medications (Trade) Dose Ordered Sig/Tadeo Route Start Time Stop Time Status Last Admin Dose Admin Heparin Sodium (Porcine) (Heparin Sq 5000 Unit/0.5ml) 5,000 unit Q8 SQ 03/22/17 22:00 04/21/17 21:59 03/25/17 20:14 5,000 UNIT Acetaminophen (Tylenol Tab) 650 mg Q4H PRN PO 03/22/17 14:30 04/21/17 14:29 Ondansetron HCl 4 mg 4 mg Q6H PRN IV 03/22/17 14:30 04/21/17 14:29 Ceftriaxone Sodium 1 gm/ Dextrose 50 ml @ 100 mls/hr Q24H IV 03/22/17 18:00 03/29/17 17:59 03/25/17 18:06 100 MLS/HR Azithromycin/ Dextrose (Zithromax IV/D5 250ml) 255 ml @ 125 mls/hr Q24H IV 03/22/17 20:00 03/29/17 19:59 03/25/17 20:11 125 MLS/HR Albuterol/ Ipratropium (Duoneb) 3 ml Q4R PRN INH 03/22/17 15:00 04/21/17 14:59 Ascorbic Acid (Vitamin C Tab) 500 mg QAM PO 03/23/17 09:00 04/22/17 08:59 03/25/17 08:01 500 MG Aspirin (Ecotrin Tab) 81 mg QAM PO 03/23/17 09:00 04/22/17 08:59 03/25/17 08:00 81 MG Calcium/Vitamin D (Caltrate Plus Tab) 1 tab BID PO 03/22/17 21:00 04/21/17 20:59 03/25/17 20:12 1 TAB Salmeterol Xinafoate/ Fluticasone (Advair Diskus 250/50 Inh) 1 puff BID INH 03/22/17 21:00 04/21/17 20:59 03/25/17 20:11 1 PUFF Guaifenesin (Mucinex Contr Rel Tab) 600 mg Q12 PRN PO 03/22/17 15:00 04/21/17 14:59 03/23/17 09:08 600 MG Multivitamins (Multivitamin Tab) 1 tab DAILY PO 03/23/17 09:00 04/22/17 08:59 03/25/17 08:00 1 TAB Pravastatin Sodium (Pravachol Tab) 40 mg DAILY PO 03/23/17 09:00 04/22/17 08:59 03/25/17 08:00 40 MG Sertraline HCl (Zoloft Tab) 100 mg DAILY PO 03/23/17 09:00 04/22/17 08:59 03/25/17 08:01 100 MG Metoprolol Tartrate (Lopressor Tab) 12.5 mg BID PO 03/23/17 21:00 04/22/17 20:59 03/25/17 20:12 12.5 MG Prednisone (PredniSONE TAB) 40 mg DAILY PO 03/24/17 09:00 04/23/17 08:59 03/25/17 08:00 40 MG
[2017-03-25 23:49] VITALS: BP 150/81; PULSE 60; TEMP 36.9; O2SAT 93
[2017-03-26] MEDS: HEPARIN SOD 5000 UNIT/0.5 ML CARP SQ SCH ×2 (05:41→13:34)
[2017-03-26 06:57] VITALS: BP 169/89; PULSE 67; TEMP 37.2; O2SAT 92
[2017-03-26] MEDS: FLUTICASONE/SALMETEROL 250/50 (ADVAIR) 14 PUFF/1 INHALER INH SCH (07:51)
[2017-03-26] MEDS: ASCORBIC ACID 500 MG TAB PO SCH (07:51)
[2017-03-26] MEDS: ASPIRIN 81 MG ECTAB PO SCH (07:51)
[2017-03-26] MEDS: METOPROLOL TARTRATE 25 MG TAB PO SCH (07:51)
[2017-03-26] MEDS: MULTIVITAMIN TAB PO SCH (07:51)
[2017-03-26] MEDS: CALCIUM 600MG + VIT D 400 IU TAB PO SCH (07:52)
[2017-03-26] MEDS: SERTRALINE HCL 100 MG TAB PO SCH (07:52)
[2017-03-26] MEDS: PRAVASTATIN SOD 40 MG TAB PO SCH (07:52)
--- NOTE | 2017-03-26 13:41 | Progress Note ---
Medicine Progress Note Date & Time of Visit: March 26, 2017 at 11:10 . Subjective Doing well. No fever or chills. Cough much better. Minimal dyspnea on exertion. No pleuritic chest pain or angina. No nausea, vomiting, diarrhea. Ambulating. . Objective Last 8 Hrs Date Time Temp Pulse Resp B/P Pulse Ox O2 Delivery O2 Flow Rate FiO2 03/26/17 08:00 Room Air 03/26/17 06:57 37.2 67 18 169/89 92 Room Air Physical Exam: General- no distress Neck- no JVD Lungs- diffuse mild wheezing Heart- RRR Abdomen- + BS, soft, nontender Extremities- no pretibial edema or calf tenderness Neuro- alert . Assessment & Plan PNEUMONIA (Strep pneumoniae with bacteremia) Presented with cough and reported fever. Chest x-ray demonstrated left lung infiltrates. Community acquired pneumonia, underlying COPD. Not overtly septic- no documented fever, not tachycardic, tachypnea probably due to pneumonia, hypotension probably due to dehydration. Received azithromycin and ceftriaxone with clinical improvement and declining WBC's. 1/2 blood cultures grew gram positive cocci = Strep pneumoniae, penicillin susceptible. Sputum culture growing Aspergillus fumigatus. Suspect colonization, but will need pulmonary referral if there are ongoing clinical or radiographic concerns. Oxygenating well on room air. Discharge on amoxicillin 1000 mg TID x 5 days to treat for total of 10 days. Will need follow-up imaging in 4-6 weeks to assure resolution. ACUTE KIDNEY INJURY Serum creatinine 1.5 at time of admission. Probable acute kidney injury due to volume depletion. Received IV fluids with improvement. Creatinine 03/23/17 was 0.88. COPD Exacerbation due to pneumonia. Continue nebs + short course of steroids. HYPERTENSION Continue metoprolol. DIARRHEA Resolved. VTE PROPHYLAXIS SQ heparin. Ambulate. DISPOSITION Expected discharge to home. Family Medicine follow-up with Dr. Hayes. . Procedures: cardiac monitoring IV fluids . Current Inpatient Medications: Current Inpatient Medications Medications (Trade) Dose Ordered Sig/Tadeo Route Start Time Stop Time Status Last Admin Dose Admin Heparin Sodium (Porcine) (Heparin Sq 5000 Unit/0.5ml) 5,000 unit Q8 SQ 03/22/17 22:00 04/21/17 21:59 03/26/17 13:34 5,000 UNIT Acetaminophen (Tylenol Tab) 650 mg Q4H PRN PO 03/22/17 14:30 04/21/17 14:29 Ondansetron HCl 4 mg 4 mg Q6H PRN IV 03/22/17 14:30 04/21/17 14:29 Ceftriaxone Sodium 1 gm/ Dextrose 50 ml @ 100 mls/hr Q24H IV 03/22/17 18:00 03/29/17 17:59 03/25/17 18:06 100 MLS/HR Azithromycin/ Dextrose (Zithromax IV/D5 250ml) 255 ml @ 125 mls/hr Q24H IV 03/22/17 20:00 03/29/17 19:59 03/25/17 20:11 125 MLS/HR Albuterol/ Ipratropium (Duoneb) 3 ml Q4R PRN INH 03/22/17 15:00 04/21/17 14:59 Ascorbic Acid (Vitamin C Tab) 500 mg QAM PO 03/23/17 09:00 04/22/17 08:59 03/26/17 07:51 500 MG Aspirin (Ecotrin Tab) 81 mg QAM PO 03/23/17 09:00 04/22/17 08:59 03/26/17 07:51 81 MG Calcium/Vitamin D (Caltrate Plus Tab) 1 tab BID PO 03/22/17 21:00 04/21/17 20:59 03/26/17 07:52 1 TAB Salmeterol Xinafoate/ Fluticasone (Advair Diskus 250/50 Inh) 1 puff BID INH 03/22/17 21:00 04/21/17 20:59 03/26/17 07:51 1 PUFF Guaifenesin (Mucinex Contr Rel Tab) 600 mg Q12 PRN PO 03/22/17 15:00 04/21/17 14:59 03/23/17 09:08 600 MG Multivitamins (Multivitamin Tab) 1 tab DAILY PO 03/23/17 09:00 04/22/17 08:59 03/26/17 07:51 1 TAB Pravastatin Sodium (Pravachol Tab) 40 mg DAILY PO 03/23/17 09:00 04/22/17 08:59 03/26/17 07:52 40 MG Sertraline HCl (Zoloft Tab) 100 mg DAILY PO 03/23/17 09:00 04/22/17 08:59 03/26/17 07:52 100 MG Metoprolol Tartrate (Lopressor Tab) 12.5 mg BID PO 03/23/17 21:00 04/22/17 20:59 03/26/17 07:51 12.5 MG Prednisone (PredniSONE TAB) 40 mg DAILY PO 03/24/17 09:00 04/23/17 08:59 03/26/17 07:52 40 MG
[2017-03-26] MEDS ORDERED: PRED10TA PO (14:30)
[2017-03-26] MEDS ORDERED: AMX500 PO (14:30)
--- NOTE | 2017-03-26 14:35 | Discharge Instructions ---
Discharge Instructions Date of Service March 26, 2017. Admission Reason for Admission: pneumonia . Discharge Discharge Diagnosis / Problem: pneumonia Discharge Goals Goal(s): Decrease discomfort, Improve disease control Activity Recommendations Activity Limitations: as noted below Lifting Limitations: gradually increase as tolerated . Instructions / Follow-Up Instructions / Follow-Up APPOINTMENTS: FAMILY MEDICINE 04/01/2017 12:40 PM Raz Hayes MD INSTRUCTIONS: New medications for pneumonia: amoxicillin 500 mg pills, take 2 pills 3 times a day until gone prednisone 10 mg pills, take 4 pills on 03/27/17, then stop New prescriptions were sent to [facility] in [place]. You should have a repeat chest x-ray in 4-6weeks to make certain that the pneumonia has cleared up. Seek medical attention if you have: * temperature above 101 * chest pain or trouble breathing * abdominal pain, nausea, vomiting * diarrhea, dark stools or bloody stools * any unanswered questions or concerns Call 911 if symptoms are severe. Call if you have any questions or problems. My cell # is [phone]. You can also reach a [facility] hospitalist on duty at [facility] 24 hours a day by calling [phone]. Please take good care of yourself. Roberto Shepherd . Current Hospital Diet Patient's current hospital diet: AHA Diet (Heart Healthy) Discharge Diet Recommended Diet: AHA Diet (Heart Healthy) Pending Studies Studies pending at discharge: no Medical Emergencies . Who to Call and When: Medical Emergencies: If at any time you feel your situation is an emergency, please call 911 immediately. . Non-Emergent Contact Non-Emergency issues call your: Primary Care Provider . . "Provider Documentation" section prepared by Roberto Shepherd. . VTE Core Measure Inpt VTE Proph given/why not?: Unfractionated heparin SQ
[2017-03-26 14:48] VITALS: BP 169/89; PULSE 67; TEMP 37.2; O2SAT 92
[2017-03-26 14:59] VITALS: BP 124/69; PULSE 62; TEMP 36.7; O2SAT 91
--- NOTE | 2017-03-26 20:19 | Discharge Summary ---
Discharge Summary Date of Service March 26, 2017. Discharge Summary Admission Date: March 22, 2017 at 14:26 Discharge Date: March 26, 2017 Discharge Disposition: Home Principal Diagnosis: pneumococcal pneumonia with bacteremia small left pleural effusion . Secondary Diagnoses/Problems: Chronic Medical Problems: (1) AAA (abdominal aortic aneurysm) Permanent Comment: s/p repair of ruptured AAA in 2010 Status: Resolved (2) CKD (chronic kidney disease), stage III Status: Chronic (3) COPD (chronic obstructive pulmonary disease) Status: Chronic (4) Depression Status: Chronic (5) H/O: CVA (cerebrovascular accident) Status: Chronic (6) History of pulmonary embolism Status: Chronic (7) HTN (hypertension) Status: Chronic (8) Hyperlipidemia Status: Chronic (9) Pulmonary nodule Status: Chronic (10) S/P ORIF (open reduction internal fixation) fracture Permanent Comment: left hip Status: Chronic Surgical Problems: (1) S/P AAA repair Permanent Comment: s/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 Desir with bifurcated graft, left femoral thromboendarterectomy with patch angioplasty, right femoral thromboendarterectomy, and right iliofemoral bypass Status: Chronic (2) S/P laparotomy Permanent Comment: 10/16/11- abdominal exploration, wound vac placement; 10/18/11 - abdominal washout and closure. Status: Chronic . Procedures: cardiac monitoring IV fluids . Pending Studies/Follow-Up: Please check follow-up chest x-ray in 4-6 weeks. . Medication Reconciliation New Medications: Amoxicillin (Amoxicillin) 500 Mg Cap 1000 MG PO TID, #30 CAP Take 2 pills 3 times a day until gone. Prednisone (Prednisone) 10 Mg Tab 40 MG PO DAILY, #4 TAB Take 4 pills (40 mg) on 03/27/17, then discontinue. Continued Medications: Alendronate Sodium (Fosamax) 70 Mg Tab 1 TAB PO WK for 28 Days, #4 TAB 3 Refills Ascorbic Acid (Vitamin C) 500 Mg Tab 500 MG PO QAM Aspirin (Aspirin 81) 81 Mg Tab 1 TAB PO QAM Calcium Carbonate-Vitamin D W/ (Caltrate 600 Plus) 1 Tab Tab 1 TAB PO BID, TAB Fluticasone Prop/Salmeterol (Advair Diskus 250/50 60 Dose) 1 Ea Aerp 1 PUFF INH BID, INHALER Guaifenesin Ext Rel (Mucinex Ext Rel) 600 Mg Tab 600 MG PO Q12 PRN for Cough, TAB Ipratropium-Albuterol (Duoneb) 3 Ml Nebu 1 TREATMENT INH QID PRN for SOB/Wheezing, INHA Metoprolol Tartrate (Lopressor) (Lopressor) 25 Mg Tab 25 MG PO BID, TAB Multivitamin (Multivitamin) Tab 1 TAB PO DAILY, TAB Pravastatin Sodium (Pravastatin Sodium) 40 Mg Tab 1 TAB PO DAILY for 90 Days, #90 TAB 1 Refill Sertraline (Zoloft) 100 Mg Tab 100 MG PO DAILY, TAB Admission Information HPI (per Admitting provider): This is a 77 year old female with PMH of COPD, history of PE no longer on AC, history of AAA s/p repair, hx CVA without residual deficits, and other problems listed below who was sent to the ED from Dr. Hayes's office for fever and productive cough. Patient reports 2-3 day history of fever, chills, productive cough worsened from baseline. Temp was 101.[address] Hayes's office today. No increased SOB or wheezing from baseline. Denies aspiration. Had diarrhea a few days ago which resolved. Has been eating normally. Pt's states she is more "fidgety" for past few days but remained oriented x 3. Pt denies dizziness , CUENCA, vision change, rhinorrhea, sore throat, chest pain, N/V, dysuria, frequency, urgency, abnormal bleeding. No sick contacts. No recent hospitalization. Pt was hypoxic to 88% on RA in ER and improved to 90s on 2 liters NC. No home oxygen use. . Physical Exam (per Admitting): General Appearance: WD/WN, no apparent distress, + pertinent finding ( pleasant alert elderly female, not in distress) Head: normocephalic, atraumatic Eyes: normal inspection, PERRL, EOMI, sclerae normal ENT: hearing grossly normal, pharynx normal Neck: supple, trachea midline Respiratory/Chest: no respiratory distress, no accessory muscle use, + rhonchi (scattered rhonchi), + wheezing (trace expiratory wheezing), + pertinent finding (saturating well on 2L. able to speak full sentences. ) Cardiovascular: regular rate, rhythm, no murmur, normal peripheral pulses Abdomen/GI: normal bowel sounds, non tender, soft Extremities/Musculoskelatal: no calf tenderness, normal capillary refill, no pedal edema Neurologic/Psych: alert, normal mood/affect, oriented x 3, + pertinent finding (no focal deficit on gross examination) Skin: normal color, warm/dry Hospital Course PNEUMONIA (Strep pneumoniae with bacteremia) Presented with cough and reported fever. Chest x-ray demonstrated left lung infiltrates. Community acquired pneumonia, underlying COPD. Not overtly septic- no documented fever, not tachycardic, tachypnea probably due to pneumonia, hypotension probably due to dehydration. Received azithromycin and ceftriaxone with clinical improvement and declining WBC's. 1/2 blood cultures grew gram positive cocci = Strep pneumoniae, penicillin susceptible. Sputum culture growing Aspergillus fumigatus. Suspect colonization, but will need pulmonary referral if there are ongoing clinical or radiographic concerns. Oxygenating well on room air. Discharge on amoxicillin 1000 mg TID x 5 days to treat for total of 10 days. Will need follow-up imaging in 4-6 weeks to assure resolution. ACUTE KIDNEY INJURY Serum creatinine 1.5 at time of admission. Probable acute kidney injury due to volume depletion. Received IV fluids with improvement. Creatinine 03/23/17 was 0.88. COPD Exacerbation due to pneumonia. Continue nebs + short course of steroids. HYPERTENSION Continue metoprolol. DIARRHEA Resolved. VTE PROPHYLAXIS SQ heparin. Ambulate. DISPOSITION Expected discharge to home. Family Medicine follow-up with Dr. Hayes. . Total time spent on discharge = 40 min. This includes examination of the patient, discharge planning, medication reconciliation, and communication with other providers. . Discharge Instructions Date of Service March 26, 2017. Admission Reason for Admission: pneumonia . Discharge Discharge Diagnosis / Problem: pneumonia Discharge Goals Goal(s): Decrease discomfort, Improve disease control Activity Recommendations Activity Limitations: as noted below Lifting Limitations: gradually increase as tolerated . Instructions / Follow-Up Instructions / Follow-Up APPOINTMENTS: FAMILY MEDICINE 04/01/2017 12:40 PM Raz Hayes MD INSTRUCTIONS: New medications for pneumonia: amoxicillin 500 mg pills, take 2 pills 3 times a day until gone prednisone 10 mg pills, take 4 pills on 03/27/17, then stop New prescriptions were sent to [facility] in [place]. You should have a repeat chest x-ray in 4-6weeks to make certain that the pneumonia has cleared up. Seek medical attention if you have: * temperature above 101 * chest pain or trouble breathing * abdominal pain, nausea, vomiting * diarrhea, dark stools or bloody stools * any unanswered questions or concerns Call 911 if symptoms are severe. Call if you have any questions or problems. My cell # is [phone]. You can also reach a [facility] hospitalist on duty at [facility] 24 hours a day by calling [phone]. Please take good care of yourself. Roberto Shepherd . Current Hospital Diet Patient's current hospital diet: AHA Diet (Heart Healthy) Discharge Diet Recommended Diet: AHA Diet (Heart Healthy) Pending Studies Studies pending at discharge: no Medical Emergencies . Who to Call and When: Medical Emergencies: If at any time you feel your situation is an emergency, please call 911 immediately. . Non-Emergent Contact Non-Emergency issues call your: Primary Care Provider . . "Provider Documentation" section prepared by Roberto Shepherd. . VTE Core Measure Inpt VTE Proph given/why not?: Unfractionated heparin SQ Additional Copies To Raz Hayes M.D.
[2017-03-28] MEDS ORDERED: ALENDRONATE SODIUM 70 MG TAB PO SCH (06:30)
== END 2017-03-26 15:10 | disposition home or self-care (01) | DRG 190 ==
LOC: ENRESERVDT → ENRESERVTM → C.EDB 11:24 → C.2E 14:26 → C.MED 03-24 12:01
PROVIDERS: ADMIT Family Medicine; ATTEND Hospitalist
DX: J44.1 Chronic obstructive pulmonary disease with (acute) exacerbation (principal); J13 Pneumonia due to Streptococcus pneumoniae; J91.8 Pleural effusion in other conditions classified elsewhere; N17.9 Acute kidney failure, unspecified; R09.02 Hypoxemia; I12.9 Hypertensive chronic kidney disease with stage 1 through stage 4 chronic kidney disease, or unspecified chronic kidney disease; R91.1 Solitary pulmonary nodule; R00.0 Tachycardia, unspecified; N18.3 Chronic kidney disease, stage 3 (moderate); F32.9 Major depressive disorder, single episode, unspecified; E78.5 Hyperlipidemia, unspecified; R19.7 Diarrhea, unspecified; J44.0 Chronic obstructive pulmonary disease with (acute) lower respiratory infection; F17.210 Nicotine dependence, cigarettes, uncomplicated; Z79.82 Long term (current) use of aspirin; Z79.899 Other long term (current) drug therapy; Z86.711 Personal history of pulmonary embolism; Z86.73 Personal history of transient ischemic attack (TIA), and cerebral infarction without residual deficits; Z83.3 Family history of diabetes mellitus

== ENCOUNTER 2019-09-21 15:56 | Inpatient (IN) ==
--- OUTSIDE RECORDS SUMMARY | 2019-09-21 16:00 | External Medical Summary | Continuity of Care Document ---
:1940 Author Name Williams Hernandez Address Unavailable Unavailable , Care Team Providers Name Role Phone NonMNPG M.[email or web address] Unavailable [email or web address], UNKNOWN Unavailable Unavailable Problems Active medical history not documented Allergies and Adverse Reactions Allergy history not documented Medications Medications not documented Procedures Procedures not documented Immunizations Immunizations not documented Plan of Treatment Planned Observations Planned Goals not documented Results No Known Results Results not documented
[2019-09-21] MEDS ORDERED: ALBUT/IPRATROP 3MG/0.5MG NEB 3 ML VIAL INH STA (16:21)
[2019-09-21] MEDS ORDERED: methylPREDNISolone 125 MG/2 ML VIAL IV STA (16:21)
[2019-09-21 17:01] LABS: Basophils # (auto) 0.01 K/uL (0-0.2); Basophils % (auto) 0.1 %; Eosinophils # (auto) 0.01 K/uL (0-0.5); Eosinophils % (auto) 0.1 %; Hematocrit (blood only) 35.9 % (37-47); Immature Granulocytes # (auto) 0.03 K/uL (0.00-0.02); Immature Granulocytes % (auto) 0.2 %; Lymphocytes # (auto) 0.51 K/uL (1.2-3.4); Lymphocytes % (auto) 4.1 %; Mean Corpuscular Hemoglobin 30.3 pg (25-34); Mean Corpuscular Hgb Conc 33.4 g/dL (32-36); Mean Corpuscular Volume 90.7 fL (80-100); Mean Platelet Volume 10.2 fL (7.4-10.4); Monocytes % (auto) 5.6 %; Neutrophils # (auto) 11.17 K/uL (1.4-6.5); Neutrophils % (auto) 89.9 %; Platelet Count 121 K/uL (130-400); RDW Coefficient of Variation 13.4 % (11.5-14.5); RDW Standard Deviation 44.5 fL (36.4-46.3); Red Blood Count 3.96 M/uL (4.2-5.4); White Blood Count 12.43 K/uL (4.8-10.8)
--- NOTE | 2019-09-21 17:12 | XRay Report ---
XR chest 1V portable CLINICAL HISTORY: Dyspnea COMPARISON STUDY: 03/22/2017 FINDINGS: Poorly defined parenchymal infiltrate medial right base. Lungs otherwise appear clear. Ther e is a component of emphysematous change. IMPRESSION: Infiltrate right base. Mild emphysematous change. The above report was generated using voice recognition software. It may contain grammatical, syntax or spelling errors. Electronically signed by: Dionisio Varner M.D. 09/21/2019 5:11 PM
[2019-09-21 17:14] LABS: INR 1.2 (0.9-1.1); Partial Thromboplastin Ratio 0.8; Partial Thromboplastin Time 22.7 Seconds (21.0-31.0); Prothrombin Time 11.7 Seconds (9.0-12.0)
[2019-09-21 17:18] LABS: Alanine Aminotransferase 16 U/L (12-78); Albumin Level 2.9 gm/dl (3.4-5.0); Aspartate Aminotransferase 18 U/L (15-37); BUN Creatinine Ratio 31.8 (10-20); Blood Urea Nitrogen 30 mg/dl (7-18); Calcium 10.3 mg/dl (8.5-10.1); Carbon Dioxide 25 mmol/L (21-32); Chloride 106 mmol/L (98-107); Est GFR (African American) 66.4; Est GFR (Non-African American) 57.3; Glucose 114 mg/dl (70-99); Potassium 4.1 mmol/L (3.5-5.1); Sodium 138 mmol/L (136-145)
[2019-09-21 17:21] LABS: Albumin Globulin Ratio 0.7 (0.9-2); Alkaline Phosphatase 94 U/L (45-117); Bilirubin,Total 0.5 mg/dl (0.2-1); Total Protein 6.9 gm/dl (6.4-8.2)
[2019-09-21] MEDS ORDERED: AZITHROMYCIN 500 MG in DEXTROSE 5% 250 ML IV ONE (17:26)
[2019-09-21] MEDS ORDERED: cefTRIAXone SODIUM 2,000 MG/70 ML BAG IV STA (17:26)
--- NOTE | 2019-09-21 18:26 | History & Physical Report ---
Date of Service September 21, 2019 Assessment & Plan (1) RLL pneumonia: Community-acquired pneumonia with associated hypoxia but does not meet sepsis criteria - Treat empirically with azithromycin/ceftriaxone (started in ED) - denies risk factors for HAP - DuoNebs Q8 hours scheduled but up to Q2 hrs prn shortness of breath/wheezing - Oxygen via nasal canula - wean as tolerated - Continue outpatient Advair (2) Hypoxia: Due to #1 (3) Leukocytosis: Suspect due to #1 - Recheck labs in AM (4) Hyperlipidemia: - Continue outpatient pravastatin 40 mg daily (5) Depression: Stable on outpatient regimen - Continue sertraline 150 mg daily (6) HTN (hypertension): - Continue outpatient metoprolol BID (7) COPD (chronic obstructive pulmonary disease): On Advair at baseline with prn Duonebs although pt reports that she rarely takes - Continue Advair - Duonebs TID scheduled but can use up to Q2 hours prn sob/wheezing (8) CKD (chronic kidney disease), stage III: Last creatinine as outpatient was April 2019 and was 1.2. Prior to that has been 0.9-1.0. Today creatinine is 0.94 - Check labs in AM - BUN:creatinine ration > 20:1. Suspect pt is mildly dehydrated. Will give 500 cc bolus of NSS Pt seen and reviewed with collaborating physician Dr. Rayo. Plan of care discussed and as outlined above. Family updated at bedside - all questions answered. Lei Markham PA-C History of Present Illness Chief Complaint: Hypoxia Primary Care Provider: Raz Hayes MD This is an 79 y/o female with a history of COPD, ongoing tobacco use, hypertension, dyslipidemia, major depression, CKD III, PVD, and prior CVA who presents from her PCP office with hypoxia. Pt reports ongoing cough for the past 2-3 months but developed intermittent URI symptoms over the past 1-2 weeks. [place] like she was getting sick again over the weekend and used her nebulizer on Saturday evening (two days ago). That evening she was playing cards with her who reported that she "got woozy" which he describes as fatigued, lightheaded with transient confusion. Yesterday, she was more short of breath with any exertion and noted a low-grade fever (99-100). Due to the episode Saturday evening, her called for an appointment which was scheduled for today. Cough has been worsening and is productive of clear to white mucus. Denies hemoptysis. Due to underlying COPD and ongoing smoking, pt is chronically wheezing but family reports this has gotten worse over the past 24 hours. Pt denies chest pain or chest tightness. Pt reports breathing is somewhat improved after the one hour neb treatment in the ED although family reports pt's wheezing is still worse than baseline. Temperature at PCP office today was 101.1F and pt was hypoxic at 88% on RA so she was referred to the ED for additional evaluation. Family declined EMS transport. Pt is fatigued. Allergies Allergy/AdvReac Type Severity Reaction Status Date / Time No Known Allergies Allergy Unverified 03/22/17 11:35 Home Medications Home Medications Medication Instructions Recorded Confirmed Type ascorbic acid (vitamin C) [Vitamin 500 mg PO DAILY 09/21/19 09/21/19 History C] fluticasone propion-salmeterol 1 inh INHALATION BID 09/21/19 09/21/19 History ipratropium-albuterol 3 ml INHALATION QID PRN 09/21/19 09/21/19 History metoprolol tartrate 25 mg PO BID 09/21/19 09/21/19 History multivitamin 1 tab PO DAILY 09/21/19 09/21/19 History pravastatin 40 mg PO DAILY 09/21/19 09/21/19 History sertraline 50 mg PO QPM 09/21/19 09/21/19 History sertraline 100 mg PO QPM 09/21/19 09/21/19 History Past Med/Surg History Medical History H/O: CVA (cerebrovascular accident) (Chronic) CKD (chronic kidney disease), stage III (Chronic) COPD (chronic obstructive pulmonary disease) (Chronic) HTN (hypertension) (Chronic) History of pulmonary embolism (Chronic) Depression (Chronic) Hyperlipidemia (Chronic) Female stress incontinence Tobacco use disorder Surgical History S/P ORIF (open reduction internal fixation) fracture (Chronic) "left hip" S/P AAA repair (Chronic) "s/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 Desir with bifurcated graft, left femoral thromboendarterectomy with patch angioplasty, right femoral thromboendarterectomy, and right iliofemoral bypass" S/P laparotomy (Chronic) "10/16/11- abdominal exploration, wound vac placement; 10/18/11- abdominal washout and closure. " Family History Other Family history non-contributory Social History Preferred Language: Armenian Communication Ability: Effective Separator Operator Required: No Beliefs That Will Affect Care: None Current Living Situation: Spouse Other Information That Helps Us Care for You: No Feels Safe at Home: Yes Safety Concerns: Feels Safe At This Time Smoking Status: Current every day smoker Tobacco Type: cigarettes ; Cigarettes Per Day: 5 ; Do You Dip or Chew Tobacco: No ; Hx Alcohol Use: No Hx Substance Use: No Review of Systems Review of Systems: All systems reviewed & are unremarkable except as noted in HPI & below Constitutional: + fever, + fatigue and + weakness; no chills and no sweats Eyes: no diplopia Ear, Nose, Mouth, Throat: + nasal congestion; no ear pain, no nasal discharge and no sore throat Respiratory: + cough, + chest congestion, + dyspnea on exertion and + wheezing; no hemoptysis Cardiovascular: no chest pain, no palpitations, no syncope, no edema and no calf pain Gastrointestinal: no abdominal pain, no nausea, no vomiting, no change in bowel habits, no diarrhea/loose stools and no blood in stools Genitourinary: + urinary urgency (chronic); no dysuria and no hematuria Musculoskeletal: no back pain, no myalgia and no muscle weakness Integumentary: no rash and no skin ulcer Neurologic: + confusion (transient episode on Saturday); no tingling, no numbness, no seizure-like activity, no syncope and no headache(s) Psychiatric: + depression (chronic issue - on Zoloft) Physical Exam Constitutional: WD/WN, vitals as above no acute distress Eyes: PERRL, conjunctivae normal, anicteric sclerae ENMT: external ear and nose normal, oropharynx normal Neck: trachea midline Respiratory: no respiratory distress and does not use accessory muscles Auscultation: + diminished lung sounds, + rhonchi and + wheezes Scattered wheezes and rhonchi throughout Cardiovascular: Rate/Rhythm: regular rate and regular rhythm Heart Sounds: no gallop and no cardiac rub Extremities: normal capillary refill; no calf tenderness and no pedal edema Gastrointestinal (Abdomen): Inspection/Auscultation: normal bowel sounds; abdomen not distended Percussion/Palpation: abdomen soft; abdomen nontender Musculoskeletal: Head/Neck/Chest: normocephalic and head atraumatic Extremities: strength 5/5 throughout; no cyanosis and no clubbing Skin: no rashes, warm and dry no jaundice Neurologic: moves all extremities; no focal motor deficits Speech / Cogniti on: normal speech Psychiatric: A+Ox3, euthymic affect Results & Data Vital Signs (Past 12 Hours) Vital Signs Temp Pulse Pulse Resp BP Pulse Ox 09/21/19 16:46 73 18 97 09/21/19 16:07 93 09/21/19 16:00 37.3 C 78 24 122/59 L 87 L Laboratory Results Laboratory Results - last 24 hr 09/21/19 09/21/19 09/21/19 16:43 16:43 16:43 WBC 12.43 H RBC 3.96 L Hgb 12.0 Hct 35.9 L MCV 90.7 MCH 30.3 MCHC 33.4 RDW Std Deviation 44.5 RDW Coeff of [place] 13.4 Plt Count 121 L MPV 10.2 Immature Gran % (Auto) 0.2 Neut % (Auto) 89.9 Lymph % (Auto) 4.1 [place] % (Auto) 5.6 Eos % (Auto) 0.1 Baso % (Auto) 0.1 Immature Gran # (Auto) 0.03 H Neut # (Auto) 11.17 H Lymph # (Auto) 0.51 L [place] # (Auto) 0.70 H Eos # (Auto) 0.01 Baso # (Auto) 0.01 PT 11.7 INR 1.2 H APTT 22.7 PTT Ratio 0.8 Sodium 138 Potassium 4.1 Chloride 106 Carbon Dioxide 25 Anion Gap 7.0 BUN 30 H Creatinine 0.94 Est Cr Clr Drug Dosing Not Reportable Est GFR ( Amer) 66.4 Est GFR (Non-Af Amer) 57.3 BUN/Creatinine Ratio 31.8 H Glucose 114 H Calcium 10.3 H Total Bilirubin 0.5 AST 18 ALT 16 Alkaline Phosphatase 94 POC Troponin I Total Protein 6.9 Albumin 2.9 L Globulin 4.0 Albumin/Globulin Ratio 0.7 L 09/21/19 17:23 WBC RBC Hgb Hct MCV MCH MCHC RDW Std Deviation RDW Coeff of [place] Plt Count MPV Immature Gran % (Auto) Neut % (Auto) Lymph % (Auto) [place] % (Auto) Eos % (Auto) Baso % (Auto) Immature Gran # (Auto) Neut # (Auto) Lymph # (Auto) [place] # (Auto) Eos # (Auto) Baso # (Auto) PT INR APTT PTT Ratio Sodium Potassium Chloride Carbon Dioxide Anion Gap BUN Creatinine Est Cr Clr Drug Dosing Est GFR ( Amer) Est GFR (Non-Af Amer) BUN/Creatinine Ratio Glucose Calcium Total Bilirubin AST ALT Alkaline Phosphatase POC Troponin I < 0.03 Total Protein Albumin Globulin Albumin/Globulin Ratio Diagnostic Findings Chest x-ray 09/21/19 - IMPRESSION: Infiltrate right base. Mild emphysematous change. (personally reviewed) Medications Administered Azithromycin 500 mg/ Dextrose 255 mls @ 125 mls/hr IV ONE ONE Stop: 09/21/19 19:28 Last Admin: 09/21/19 18:32 Dose: 125 mls/hr Documented by: [id number] Discontinued Medications Albuterol (Duoneb) 12 ml INH ONE STA Stop: 09/21/19 16:22 Last Admin: 09/21/19 16:35 Dose: 12 ml Documented by: [id number] Ceftriaxone Sodium (Rocephin) 2,000 mg in 70 mls @ 140 mls/hr IV NOW STA Stop: 09/21/19 17:55 Last Infusion: 09/21/19 18:25 Dose: 0 mls/hr Documented by: [id number] Admin: 09/21/19 17:55 Dose: 140 mls/hr Documented by: [id number] Methylprednisolone (Solumedrol) 60 mg IV NOW STA Stop: 09/21/19 16:22 Last Admin: 09/21/19 17:04 Dose: 60 mg Documented by: [id number] Code Status & VTE Plan VTE Prophylaxis Plan VTE Prophylaxis will be ordered: Yes Supervising Physician Co-Signing Physician Notes I, Dr. Arvin Rayo, have seen and examined the patient with physician therapy administrative assistant and would like to comment that: Michelle Gonzáles is a 79 year old female who presents with RIGHT LOWER LOBE PNEUMONIA and history of COPD (Chronic obstructive pulmonary disease) -continue ceftriaxone and azithromycin -nebulizer treatments q8 hours as scheduled and as prn for shortness of breath or wheezing -continue home dose Advair Agree with other assessment and plans and history as documented by physician therapy administrative assistant for other medication issues as documented above including CHRONIC KIDNEY DISEASE STAGE III On physical exam in the ED General/Lungs: breathing on nebulizer treatment, patient has moderate inhalation/exhalation Neck: normal visual inspection Eyes: ocular movements intact, pupils are equal and reactive to light Heart: regular rate Abdomen: soft, nontender, positive bowel sounds Extremities: no edema My colleague Dr. Reymundo Rosario will be the hospitalist physician for the patient starting on 09/22/19 (1) Depression Active/Remission status: remission status unspecified Depression Type: major depressive disorder Major depression recurrence: unspecified whether recurrent Qualified Code(s): F32.9 - Major depressive disorder, single episode, unspecified (2) Hyperlipidemia Hyperlipidemia type: unspecified Qualified Code(s): E78.5 - Hyperlipidemia, unspecified (3) Leukocytosis Leukocytosis type: unspecified Qualified Code(s): D72.829 - Elevated white blood cell count, unspecified (4) RLL pneumonia Pneumonia type: due to unspecified organism Qualified Code(s): J18.1 - Lobar pneumonia, unspecified organism (5) HTN (hypertension) Hypertension type: essential hypertension Qualified Code(s): I10 - Essential (primary) hypertension
[2019-09-21] MEDS ORDERED: SODIUM CHLORIDE 0.9% 500 ML IV SCH (18:46)
[2019-09-21] MEDS ORDERED: SODIUM CHLORIDE 0.9% 500 ML IV ONE (19:34)
[2019-09-21] MEDS ORDERED: ACETAMINOPHEN 325 MG TAB PO PRN (21:54)
[2019-09-21] MEDS: ALBUT/IPRATROP 3MG/0.5MG NEB 3 ML VIAL NEB SCH (21:55)
[2019-09-21] MEDS: SODIUM CHLORIDE 0.9% 1000ML 1,000 ML IV SCH (22:00)
--- NOTE | 2019-09-21 22:58 | Emergency Department Note ---
Entered by Isabell Burgos acting as a scribe for Jose Mckeon MD History of Present Illness General Chief complaint: Abnormal Labs/Diagnostic Testing Stated complaint: ox levels low, ref by doctor Time Seen by Provider: 09/21/19 16:14 Source: patient and family () History of Present Illness Onset (ago): day(s) (today) Location: chest Maximum Pain Intensity: 0 Quality: + other (low O2) Associated symptoms: + denies other symptoms (leg edema), + cough (constant; more than 1 month, clear sputum ), + shortness of breath (sometimes) and + other (congestion, disoriented ); no chest pain and no nausea/vomiting The patient is an 79 year old female with PMHx pertinent for COPD, everyday smoker who smokes about 2-5 cigarettes per day, hypoxia, pulmonary nodule, CKD Stage III, AAA, leukocytosis, RLL pneumonia, sepsis, HTN, PE, and hyperlipidemia, who was sent to the Emergency Room today by her PCP for low O2 levels. The patient states that she has been experiencing an ongoing constant cough with clear sputum for more than 1 month that recently worsened. Additiona lly, she reports experiencing shortness of breath at times. Her daughter reports that the patient sounded congested last night when she spoke to her over the phone. The patient's states that she was acting disoriented 1 day ago. The daughter reports that the patient's O2 level at the doctor's office today was 88 while sitting down, though she did not feel out of breath. She states her PCP sent her to the ED for further evaluation. The patient notes that she is unsure of fever and states that she currently feels fine. She denies chest pain, vomiting, and leg edema. Of note, the patient reports that she is currently not on steroids and does not use oxygen at home, however she admits that she does use a nebulizer and inhaler. The patient states that she did not use her nebulizer today. She offers no additional complaints at this time. Home Medications Home Medications Medication Instructions Recorded Confirmed Type ascorbic acid (vitamin C) [Vitamin 500 mg PO DAILY 09/21/19 09/21/19 History C] fluticasone propion-salmeterol 1 inh INHALATION BID 09/21/19 09/21/19 History ipratropium-albuterol 3 ml INHALATION QID PRN 09/21/19 09/21/19 History metoprolol tartrate 25 mg PO BID 09/21/19 09/21/19 History multivitamin 1 tab PO DAILY 09/21/19 09/21/19 History pravastatin 40 mg PO DAILY 09/21/19 09/21/19 History sertraline 50 mg PO QPM 09/21/19 09/21/19 History sertraline 100 mg PO QPM 09/21/19 09/21/19 History Allergies Allergy/AdvReac Type Severity Reaction Status Date / Time No Known Allergies Allergy Unverified 03/22/17 11:35 Past Med/Surg History Medical History H/O: CVA (cerebrovascular accident) (Chronic) CKD (chronic kidney disease), stage III (Chronic) COPD (chronic obstructive pulmonary disease) (Chronic) HTN (hypertension) (Chronic) History of pulmonary embolism (Chronic) Depression (Chronic) Hyperlipidemia (Chronic) Female stress incontinence Tobacco use disorder Surgical History S/P ORIF (open reduction internal fixation) fracture (Chronic) "left hip" S/P AAA repair (Chronic) "s/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 Desir with bifurcated graft, left femoral thromboendarterectomy with patch angioplasty, right femoral thromboendarterectomy, and right iliofemoral bypass" S/P laparotomy (Chronic) "10/16/11- abdominal exploration, wound vac placement; 10/18/11- abdominal washout and closure. " Family History Other Family history non-contributory Social History Preferred Language: Azeri Communication Ability: Effective External Relations Manager Required: No Beliefs That Will Affect Care: None Current Living Situation: Spouse Other Information That Helps Us Care for You: No Feels Safe at Home: Yes Safety Concerns: Feels Safe At This Time Smoking Status: Current every day smoker Tobacco Type: cigarettes ; Cigarettes Per Day: 5 ; Do You Dip or Chew Tobacco: No ; Hx Alcohol Use: No Hx Substance Use: No Review of Systems See HPI for pertinent positives & negatives. and A total of 10 systems reviewed and were otherwise negative Physical Exam Vital Signs Vital Signs - 24 hr 09/21/19 16:00 09/21/19 16:07 09/21/19 16:14 Temperature 37.3 C Temperature Source Oral Sepsis Recent Fever Within 48 Hours Yes Sepsis Action Taken by Nursing No Action Required Pulse Rate 78 92 H Pulse Rate [Right Finger] Pulse Rate from SpO2 Sensor 90 Respiratory Rate 24 22 Respiratory Effort / Characteristics Blood Pressure 122/59 L 135/61 Blood Pressure Mean 80 85 Pulse Oximetry 87 L 93 94 Oxygen Delivery Method Room Air Nasal Cannula Nasal Cannula Oxygen Flow Rate 2 2 09/21/19 16:17 09/21/19 16:20 09/21/19 16:30 Temperature Temperature Source Sepsis Recent Fever Within 48 Hours Sepsis Action Taken by Nursing Pulse Rate 92 H 68 70 Pulse Rate [Right Finger] Pulse Rate from SpO2 Sensor 85 74 Respiratory Rate 24 20 25 H Respiratory Effort / Characteristics Blood Pressure 102/61 Blood Pressure Mean 74 Pulse Oximetry 94 95 Oxygen Delivery Method Nasal Cannula Nasal Cannula Nasal Cannula Oxygen Flow Rate 2 2 2 09/21/19 16:32 09/21/19 16:40 09/21/19 16:46 Temperature Temperature Source Sepsis Recent Fever Within 48 Hours Sepsis Action Taken by Nursing Pulse Rate 74 Pulse Rate [Right Finger] 73 Pulse Rate from SpO2 Sensor 74 Respiratory Rate 22 18 Respiratory Effort / Characteristics Non-Labored Spontaneous Blood Pressure Blood Pressure Mean Pulse Oximetry 95 97 Oxygen Delivery Method Nasal Cannula Nasal Cannula Nasal Cannula Oxygen Flow Rate 2 2 2 09/21/19 16:50 09/21/19 17:00 09/21/19 17:10 Temperature Temperature Source Sepsis Recent Fever Within 48 Hours Sepsis Action Taken by Nursing Pulse Rate 88 76 78 Pulse Rate [Right Finger] Pulse Rate from SpO2 Sensor 74 76 78 Respiratory Rate 19 17 20 Respiratory Effort / Characteristics Blood Pressure 105/55 L Blood Pressure Mean 71 Pulse Oximetry 98 98 98 Oxygen Delivery Method Nasal Cannula Nasal Cannula Nasal Cannula Oxygen Flow Rate 2 2 2 09/21/19 17:20 09/21/19 17:30 09/21/19 17:40 Temperature Temperature Source Sepsis Recent Fever Within 48 Hours Sepsis Action Taken by Nursing Pulse Rate 80 82 82 Pulse Rate [Right Finger] Pulse Rate from SpO2 Sensor 81 Respiratory Rate 16 18 17 Respiratory Effort / Characteristics Blood Pressure 102/57 L Blood Pressure Mean 72 Pulse Oximetry 98 Oxygen Delivery Method Nasal Cannula Nasal Cannula Nasal Cannula Oxygen Flow Rate 2 2 2 09/21/19 17:50 09/21/19 18:00 09/21/19 18:10 Temperature Temperature Source Sepsis Recent Fever Within 48 Hours Sepsis Action Taken by Nursing Pulse Rate 89 93 H 90 Pulse Rate [Right Finger] Pulse Rate from SpO2 Sensor Respiratory Rate 21 18 19 Respiratory Effort / Characteristics Blood Pressure 101/53 L Blood Pressure Mean 69 Pulse Oximetry Oxygen Delivery Method Nasal Cannula Nasal Cannula Nasal Cannula Oxygen Flow Rate 2 2 3 Constitutional: Vital signs reviewed. Eyes: Pupils are equal round reactive to light. Conjunctiva are noninjected. ENT: Pharynx is clear without erythema or exudate. Mucous membranes are moist. Neck supple without meningeal signs. Respiratory: Diffuse wheezing bilaterally. Breath sounds are equal bilaterally. Cardiovascular: Regular rate and rhythm. No rubs or gallops. GI: Soft, nondistended and nontender. Bowel sounds are present. Musculoskeletal: No peripheral edema. No lower extremity tenderness. Integumentary: No cyanosis. Neurological: The patient is awake and alert. No focal deficits. Psychiatric: Normal affect. Course 1616: Past medical records reviewed. The patient was evaluated in room B09. A complete history and physical exam was performed. 1700: Calculated patient's curb 65 score to be 2. 1725: The patient was reassessed and is finishing up nebulizer. She is still very wheezy on exam. I recommended hospitalization for pneumonia. 1730: Spoke to Ty Izquierdo PA-C who accepts the patient under the care of Dr. Rayo, Hospitalist. The patient verbally expressed understanding and agreement of the treatment plan. The patient will be evaluated for further treatment. Administered Medications Sodium Chloride (Nss 1000ml) 1,000 mls @ 80 mls/hr IV .[id number] ALEX Stop: 10/21/19 20:29 Last Admin: 09/21/19 22:00 Dose: 80 mls/hr Documented by: [id number] Discontinued Medications Albuterol (Duoneb) 12 ml INH ONE STA Stop: 09/21/19 16:22 Last Admin: 09/21/19 16:35 Dose: 12 ml Documented by: [id number] Azithromycin 500 mg/ Dextrose 255 mls @ 125 mls/hr IV ONE ONE Stop: 09/21/19 19:28 Last Infusion: 09/21/19 20:36 Dose: 0 mls/hr Documented by: [id number] Admin: 09/21/19 18:32 Dose: 125 mls/hr Documented by: [id number] Ceftriaxone Sodium (Rocephin) 2,000 mg in 70 mls @ 140 mls/hr IV NOW STA Stop: 09/21/19 17:55 Last Infusion: 09/21/19 18:25 Dose: 0 mls/hr Documented by: [id number] Admin: 09/21/19 17:55 Dose: 140 mls/hr Documented by: [id number] Sodium Chloride (Nss) 500 mls @ 125 mls/hr IV .Q4H ALEX Stop: 09/21/19 22:45 Last Infusion: 09/21/19 20:32 Dose: 0 mls/hr Documented by: [id number] Infusion: 09/21/19 19:40 Dose: 999 mls/hr Documented by: [id number] Admin: 09/21/19 19:18 Dose: 125 mls/hr Documented by: [id number] Sodium Chloride (Nss) 500 mls @ 999 mls/hr IV .Q31M ONE Stop: 09/21/19 20:04 Last Infusion: 09/21/19 21:07 Dose: 0 mls/hr Documented by: [id number] Admin: 09/21/19 20:33 Dose: 999 mls/hr Documented by: [id number] Methylprednisolone (Solumedrol) 60 mg IV NOW STA Stop: 09/21/19 16:22 Last Admin: 09/21/19 17:04 Dose: 60 mg Documented by: [id number] Medical Decision Making Differential Diagnosis Differential diagnosis includes but is not limited to COPD exacerbation, pneumonia, bronchitis, hypoxia, and anemia Medical Records Attestation: I reviewed the patient's medical records. I did perform a limited focused review of portions of the patient's old chart on the electronic medical record. The patient has had no recent pertinent visits to this hospital. Home Medications Current Medication List: was personally reviewed by me Laboratory Data Attestation: I reviewed the patient's lab results. Result diagrams: 09/21/19 16:43 09/21/19 16:43 Lab Results 09/21/19 09/21/19 09/21/19 Range/Units 16:43 16:43 16:43 WBC 12.43 H (4.8-10.8) K/uL RBC 3.96 L (4.2-5.4) M/uL Hgb 12.0 (12.0-16.0) g/dL Hct 35.9 L (37-47) % MCV 90.7 (80-100) fL MCH 30.3 (25-34) pg MCHC 33.4 (32-36) g/dL RDW Std Deviation 44.5 (36.4-46.3) fL RDW Coeff of [place] 13.4 (11.5-14.5) % Plt Count 121 L (130-400) K/uL MPV 10.2 (7.4-10.4) fL Immature Gran % (Auto) 0.2 % Neut % (Auto) 89.9 % Lymph % (Auto) 4.1 % [place] % (Auto) 5.6 % Eos % (Auto) 0.1 % Baso % (Auto) 0.1 % Immature Gran # (Auto) 0.03 H (0.00-0.02) K/uL Neut # (Auto) 11.17 H (1.4-6.5) K/uL Lymph # (Auto) 0.51 L (1.2-3.4) K/uL [place] # (Auto) 0.70 H (0.11-0.59) K/uL Eos # (Auto) 0.01 (0-0.5) K/uL Baso # (Auto) 0.01 (0-0.2) K/uL PT 11.7 (9.0-12.0) Seconds INR 1.2 H (0.9-1.1) APTT 22.7 (21.0-31.0) Seconds PTT Ratio 0.8 Sodium 138 (136-145) mmol/L Potassium 4.1 (3.5-5.1) mmol/L Chloride 106 (98-107) mmol/L Carbon Dioxide 25 (21-32) mmol/L Anion Gap 7.0 (3-11) BUN 30 H (7-18) mg/dl Creatinine 0.94 (0.6-1.2) mg/dl Est Cr Clr Drug Dosing Not Reportable Est GFR ( Amer) 66.4 Est GFR (Non-Af Amer) 57.3 BUN/Creatinine Ratio 31.8 H (10-20) Glucose 114 H (70-99) mg/dl Calcium 10.3 H (8.5-10.1) mg/dl Total Bilirubin 0.5 (0.2-1) mg/dl AST 18 (15-37) U/L ALT 16 (12-78) U/L Alkaline Phosphatase 94 (45-117) U/L POC Troponin I (0-0.045) ng/ml Total Protein 6.9 (6.4-8.2) gm/dl Albumin 2.9 L (3.4-5.0) gm/dl Globulin 4.0 (2.5-4.0) gm/dl Albumin/Globulin Ratio 0.7 L (0.9-2) 09/21/19 Range/Units 17:23 WBC (4.8-10.8) K/uL RBC (4.2-5.4) M/uL Hgb (12.0-16.0) g/dL Hct (37-47) % MCV (80-100) fL MCH (25-34) pg MCHC (32-36) g/dL RDW Std Deviation (36.4-46.3) fL RDW Coeff of [place] (11.5-14.5) % Plt Count (130-400) K/uL MPV (7.4-10.4) fL Immature Gran % (Auto) % Neut % (Auto) % Lymph % (Auto) % [place] % (Auto) % Eos % (Auto) % Baso % (Auto) % Immature Gran # (Auto) (0.00-0.02) K/uL Neut # (Auto) (1.4-6.5) K/uL Lymph # (Auto) (1.2-3.4) K/uL [place] # (Auto) (0.11-0.59) K/uL Eos # (Auto) (0-0.5) K/uL Baso # (Auto) (0-0.2) K/uL PT (9.0-12.0) Seconds INR (0.9-1.1) APTT (21.0-31.0) Seconds PTT Ratio Sodium (136-145) mmol/L Potassium (3.5-5.1) mmol/L Chloride (98-107) mmol/L Carbon Dioxide (21-32) mmol/L Anion Gap (3-11) BUN (7-18) mg/dl Creatinine (0.6-1.2) mg/dl Est Cr Clr Drug Dosing Est GFR ( Amer) Est GFR (Non-Af Amer) BUN/Creatinine Ratio (10-20) Glucose (70-99) mg/dl Calcium (8.5-10.1) mg/dl Total Bilirubin (0.2-1) mg/dl AST (15-37) U/L ALT (12-78) U/L Alkaline Phosphatase (45-117) U/L POC Troponin I < 0.03 (0-0.045) ng/ml Total Protein (6.4-8.2) gm/dl Albumin (3.4-5.0) gm/dl Globulin (2.5-4.0) gm/dl Albumin/Globulin Ratio (0.9-2) Imaging Data Radiologist's Impression: Radiology results as stated below per my review and the radiologist's interpretation: XR chest 1V portable CLINICAL HISTORY: Dyspnea COMPARISON STUDY: 03/22/2017 FINDINGS: Poorly defined parenchymal infiltrate medial right base. Lungs otherwise appear clear. There is a component of emphysematous change. IMPRESSION: Infiltrate right base. Mild emphysematous change. The above report was generated using voice recognition software. It may contain grammatical, syntax or spelling errors. Electronically signed by: Dionisio Varner M.D. 09/21/2019 5:11 PM ECG Data Attestation: I personally reviewed and interpreted this ECG as follows: Indication: + other (SOB) Rate (beats per minute): 73 Rhythm: + normal sinus ECG ST segments: no ST elevation ECG Findings: + Other (QA in lead III); no PVCs Blood Pressure Blood Pressure Findings: Elevated blood pressure Blood Pressure Disposition: elevated BP felt to be situational MDM Narrative I did evaluate the patient as noted above. The patient is presenting with difficulty breathing, cough and hypoxemia. IV access was established. The patient was placed on a continuous conveyor monitor. She was placed on supplemental oxygen via nasal cannula. I did treat her with an hour-long DuoNeb. She was also given Solu-Medrol IV. I did order and personally review the patient's 12-lead EKG as described above. She has no acute ischemic changes. I did order and personally reviewed the images of the patient's chest x-ray as described above. She has a right lower lobe pneumonia. I did order and review the patient's blood work as noted in the electronic medical record. White blood cell count is elevated. I did reassess the patient. Her wheezing is significantly improved. I did discuss the test results with her. I did recommend hospitalization. I did treat her with IV ceftriaxone and azithromycin. I did discuss case with the hospitalist and pillowcase cleaner. Impression & Plan Hypoxia, Right lower lobe pneumonia, COPD exacerbation Critical Care Time Critical Care Time: Yes Total Critical Care Time: 35 I have personally spent approximately 35 minutes of critical care time in the direct management of this patient. This includes bedside care, interpretation of diagnostic studies, and testing, discussion with consultants, patient, and family members, and other required patient management activities. This 35 minutes is in excess of all separately billable procedures. Discharge Plan Visit Data *Final* Discharge Date/Time: 09/21/19 21:28 Chief Complaint: Abnormal Labs/Diagnostic Testing Stated Complaint: ox levels low, ref by doctor ED Provider: Jose Mckeon Discharge Problem: Hypoxia, Right lower lobe pneumonia, COPD exacerbation Patient Disposition: Admitted As Inpatient Discharge Instructions Interventions: ED Discharge Assessment Last Done: 09/21/19 21:28 Discharge Problem: Right lower lobe pneumonia Qualifiers: Pneumonia type: due to unspecified organism Qualified Code(s): J18.1 - Lobar pneumonia, unspecified organism The scribe's documentation has been prepared under my direction and personally reviewed by me in its entirety. I confirm that the note above accurately reflects all work, treatment, procedures, and medical decision making performed by me.
[2019-09-21] MEDS: FLUTICASONE/SALMETEROL 250/50 (ADVAIR) 14 PUFF/1 INHALER INH SCH (23:34)
[2019-09-21] MEDS: ENOXAPARIN INJ 30 MG/0.3 ML SYR SQ SCH (23:34)
[2019-09-21] MEDS: SERTRALINE HCL 100 MG TABLET PO SCH (23:46)
[2019-09-21] MEDS: SERTRALINE HCL 50 MG TABLET PO SCH (23:46)
[2019-09-22 05:50] LABS: Hematocrit (blood only) 32.1 % (37-47); Hemoglobin 10.5 g/dL (12.0-16.0); Immature Granulocytes # (auto) 0.01 K/uL (0.00-0.02); Immature Granulocytes % (auto) 0.1 %; Lymphocytes # (auto) 0.39 K/uL (1.2-3.4); Lymphocytes % (auto) 4.6 %; Mean Corpuscular Hemoglobin 29.7 pg (25-34); Mean Corpuscular Hgb Conc 32.7 g/dL (32-36); Mean Corpuscular Volume 90.9 fL (80-100); Mean Platelet Volume 9.9 fL (7.4-10.4); Monocytes # (auto) 0.15 K/uL (0.11-0.59); Monocytes % (auto) 1.8 %; Neutrophils # (auto) 7.87 K/uL (1.4-6.5); Neutrophils % (auto) 93.5 %; Platelet Count 104 K/uL (130-400); RDW Coefficient of Variation 13.4 % (11.5-14.5); RDW Standard Deviation 44.6 fL (36.4-46.3); Red Blood Count 3.53 M/uL (4.2-5.4); White Blood Count 8.42 K/uL (4.8-10.8)
[2019-09-22 06:28] LABS: BUN Creatinine Ratio 34.8 (10-20); Calcium 8.9 mg/dl (8.5-10.1); Creatinine Clr Calc Pharmacy 54.7 ml/min; Est GFR (African American) 79.5; Est GFR (Non-African American) 68.6
[2019-09-22] MEDS: ALBUT/IPRATROP 3MG/0.5MG NEB 3 ML VIAL NEB SCH ×3 (06:53→19:17)
[2019-09-22] MEDS: MULTIVITAMIN TAB PO SCH (08:26)
[2019-09-22] MEDS: ASCORBIC ACID 500 MG TAB PO SCH (08:26)
[2019-09-22] MEDS: FLUTICASONE/SALMETEROL 250/50 (ADVAIR) 14 PUFF/1 INHALER INH SCH ×2 (08:26→20:09)
[2019-09-22] MEDS: PRAVASTATIN SOD 40 MG TAB PO SCH (08:27)
[2019-09-22] MEDS: SODIUM CHLORIDE 0.9% 1000ML 1,000 ML IV SCH ×2 (09:31→23:42)
--- NOTE | 2019-09-22 13:01 | Hospitalist Progress Note ---
Date of Service September 22, 2019 Assessment & Plan (1) RLL pneumonia: (2) Hypoxia: (3) COPD (chronic obstructive pulmonary disease): COPD Exacerbation Present on admission with worsening SOB CXR showed infiltrate right base Received azithromycin/ceftriaxone in the ER Continue abx with IV Azithromycin and ceftriaxone Continue duoneb treatment and Advair Continue monitor closely (4) Leukocytosis: Due to above WBC on admission 12K WBC improved to 8K today Continue current abx Blood cx pending (5) Hyperlipidemia: Continue outpatient pravastatin 40 mg daily (6) Depression: Stable on outpatient regimen Continue sertraline 150 mg daily (7) HTN (hypertension): BP in the low side Continue outpatient metoprolol BID Continue monitor BP (8) CKD (chronic kidney disease), stage III: Creatinine is 0.8 today Stable Thrombocytopenia Platelet dropped to 104 today No sign of bleeding Monitor BMP DVT px on SCDs(Low Platelet) /Ambulate CODE STATUS FULL CODE Subjective Pt was seen and examined Lying in bed with no distress with and daughter at bedside Pt said that her breathing feels a little better She said that she is having difficulty to bring her phlegm up Denies any chest pain, palpitation, dizziness and SOB Physical Exam Physical Exam: General- No acute distress Head- atraumatic Eyes- PERRL, EOMI, ENT- oropharynx clear Neck- supple, no JVD Lungs- +faint Wheezing Heart- regular rhythm; no murmur Abdomen- normal bowel sounds, soft, nontender Extremities- no calf tenderness Neuro- alert, oriented x 3; PERRL, EOMI; no facial palsy; no dysarthria Skin- warm & dry Results & Data Vital Signs (Past 12 Hours) Vital Signs Temp Pulse Resp BP Pulse Ox 09/22/19 12:49 36.6 C 79 18 95/53 L 93 09/22/19 11:20 36.5 C 75 18 106/64 94 09/22/19 07:05 36.4 C L 77 18 104/65 93 09/22/19 06:53 75 19 90 09/22/19 03:22 36.5 C 79 16 102/64 93 (1) Depression Active/Remission status: remission status unspecified Depression Type: major depressive disorder Major depression recurrence: unspecified whether recurrent Qualified Code(s): F32.9 - Major depressive disorder, single episode, unspecified (2) Hyperlipidemia Hyperlipidemia type: unspecified Qualified Code(s): E78.5 - Hyperlipidemia, unspecified (3) Leukocytosis Leukocytosis type: unspecified Qualified Code(s): D72.829 - Elevated white blood cell count, unspecified (4) RLL pneumonia Pneumonia type: due to unspecified organism Qualified Code(s): J18.1 - Lobar pneumonia, unspecified organism (5) HTN (hypertension) Hypertension type: essential hypertension Qualified Code(s): I10 - Essential (primary) hypertension
[2019-09-22] MEDS: cefTRIAXone SODIUM 1,000 MG in DEXTROSE 5% 50 ML IV SCH (17:23)
[2019-09-22] MEDS: AZITHROMYCIN 500 MG in DEXTROSE 5% 250 ML IV SCH (17:58)
[2019-09-22] MEDS: SERTRALINE HCL 100 MG TABLET PO SCH (20:11)
[2019-09-22] MEDS: SERTRALINE HCL 50 MG TABLET PO SCH (20:11)
[2019-09-22] MEDS: ENOXAPARIN INJ 30 MG/0.3 ML SYR SQ SCH (21:16)
[2019-09-23] MEDS: ALBUT/IPRATROP 3MG/0.5MG NEB 3 ML VIAL NEB SCH ×3 (07:00→19:07)
[2019-09-23] MEDS: FLUTICASONE/SALMETEROL 250/50 (ADVAIR) 14 PUFF/1 INHALER INH SCH ×2 (08:25→21:22)
[2019-09-23] MEDS: PRAVASTATIN SOD 40 MG TAB PO SCH (08:25)
[2019-09-23] MEDS: MULTIVITAMIN TAB PO SCH (08:25)
[2019-09-23] MEDS: ASCORBIC ACID 500 MG TAB PO SCH (08:26)
[2019-09-23] MEDS ORDERED: predniSONE 20 MG TAB PO STA (09:44)
[2019-09-23] MEDS: guaiFENesin SUGAR FREE 200 MG/10 ML UDC PO PRN ×2 (10:56→19:39)
[2019-09-23] MEDS: cefTRIAXone SODIUM 1,000 MG in DEXTROSE 5% 50 ML IV SCH (18:31)
--- NOTE | 2019-09-23 18:56 | Hospitalist Progress Note ---
Date of Service September 23, 2019 Assessment & Plan (1) RLL pneumonia: (2) Hypoxia: (3) COPD (chronic obstructive pulmonary disease): COPD Exacerbation Present on admission with worsening SOB CXR showed infiltrate right base Received azithromycin/ceftriaxone in the ER Continue abx with IV Azithromycin and ceftriaxone Continue duoneb treatment and Advair Continue monitor closely Clinically improves (4) Leukocytosis: Due to above WBC on admission 12K WBC improved to 8K today Continue current abx Blood cx no growth (5) Hyperlipidemia: Continue outpatient pravastatin 40 mg daily (6) Depression: Stable on outpatient regimen Continue sertraline 150 mg daily (7) HTN (hypertension): BP in the low side Continue outpatient metoprolol BID Continue monitor BP (8) CKD (chronic kidney disease), stage III: Creatinine is 0.8 today Stable Thrombocytopenia Platelet dropped to 104 today No sign of bleeding Monitor BMP DVT px on SCDs(Low Platelet) /Ambulate CODE STATUS FULL CODE Subjective Pt was seen and examined Lying in bed with no distress Pt said that she feels a little better She is hesitant to go home today Denies any chest pain, palpitation, dizziness and SOB Physical Exam Physical Exam: General- No acute distress Head- atraumatic Eyes- PERRL, EOMI, ENT- oropharynx clear Neck- supple, no JVD Lungs- +faint Wheezing Heart- regular rhythm; no murmur Abdomen- normal bowel sounds, soft, nontender Extremities- no calf tenderness Neuro- alert, oriented x 3; PERRL, EOMI; no facial palsy; no dysarthria Skin- warm & dry Results & Data Vital Signs (Past 12 Hours) Vital Signs Temp Pulse Pulse Resp BP Pulse Ox 09/23/19 15:14 36.9 C 90 18 139/77 90 09/23/19 14:20 105 H 09/23/19 13:11 90 16 91 09/23/19 11:11 36.6 C 90 18 132/69 91 09/23/19 07:40 88 09/23/19 07:33 36.7 C 85 18 137/76 90 09/23/19 07:00 84 16 91 (1) Depression Active/Remission status: remission status unspecified Depression Type: major depressive disorder Major depression recurrence: unspecified whether recurrent Qualified Code(s): F32.9 - Major depressive disorder, single episode, unspecified (2) Hyperlipidemia Hyperlipidemia type: unspecified Qualified Code(s): E78.5 - Hyperlipidemia, unspecified (3) Leukocytosis Leukocytosis type: unspecified Qualified Code(s): D72.829 - Elevated white bl ood cell count, unspecified (4) RLL pneumonia Pneumonia type: due to unspecified organism Qualified Code(s): J18.1 - Lobar pneumonia, unspecified organism (5) HTN (hypertension) Hypertension type: essential hypertension Qualified Code(s): I10 - Essential (primary) hypertension
[2019-09-23] MEDS: AZITHROMYCIN 500 MG in DEXTROSE 5% 250 ML IV SCH (19:34)
[2019-09-23] MEDS: ENOXAPARIN INJ 30 MG/0.3 ML SYR SQ SCH (21:21)
[2019-09-23] MEDS: SERTRALINE HCL 100 MG TABLET PO SCH (21:22)
[2019-09-23] MEDS: SERTRALINE HCL 50 MG TABLET PO SCH (21:22)
[2019-09-24] MEDS: ALBUT/IPRATROP 3MG/0.5MG NEB 3 ML VIAL NEB SCH ×3 (07:02→19:02)
[2019-09-24] MEDS: FLUTICASONE/SALMETEROL 250/50 (ADVAIR) 14 PUFF/1 INHALER INH SCH ×2 (08:16→20:14)
[2019-09-24] MEDS: ASCORBIC ACID 500 MG TAB PO SCH (08:17)
[2019-09-24] MEDS: PRAVASTATIN SOD 40 MG TAB PO SCH (08:17)
[2019-09-24] MEDS: MULTIVITAMIN TAB PO SCH (08:17)
[2019-09-24] MEDS ORDERED: predniSONE 20 MG TAB PO ONE (09:00)
[2019-09-24] MEDS: cefTRIAXone SODIUM 1,000 MG in DEXTROSE 5% 50 ML IV SCH (18:00)
--- NOTE | 2019-09-24 18:47 | Hospitalist Progress Note ---
Date of Service September 24, 2019 Assessment & Plan (1) RLL pneumonia: (2) Hypoxia: (3) COPD (chronic obstructive pulmonary disease): COPD Exacerbation Present on admission with worsening SOB CXR showed infiltrate right base Received azithromycin/ceftriaxone in the ER Continue abx with IV Azithromycin and ceftriaxone Continue duoneb treatment and Advair Continue oral prednisone for x5 days Continue monitor closely Clinically improves (4) Leukocytosis: Due to above WBC on admission 12k, improved to 8K Continue current abx Blood cx no growth (5) Hyperlipidemia: Continue outpatient pravastatin 40 mg daily (6) Depression: Stable on outpatient regimen Continue sertraline 150 mg daily (7) HTN (hypertension): BP in the low side Continue outpatient metoprolol BID Continue monitor BP (8) CKD (chronic kidney disease), stage III: Creatinine is 0.8 today Stable Thrombocytopenia Platelet dropped to 104 No sign of bleeding Monitor BMP DVT px on SCDs(Low Platelet) /Ambulate CODE STATUS FULL CODE Disposition Discharge home today Subjective Pt was seen and examined Lying in bed with no distress Breathing improves Denies any chest pain, palpitation and SOB Physical Exam Physical Exam: General- No acute distress Head- atraumatic Eyes- PERRL, EOMI, ENT- oropharynx clear Neck- supple, no JVD Lungs- +faint Wheezing Heart- regular rhythm; no murmur Abdomen- normal bowel sounds, soft, nontender Extremities- no calf tenderness Neuro- alert, oriented x 3; PERRL, EOMI; no facial palsy; no dysarthria Skin- warm & dry Results & Data Vital Signs (Past 12 Hours) Vital Signs Temp Pulse Pulse Pulse Resp BP Pulse Ox 09/24/19 15:24 36.9 C 98 H 20 155/87 H 92 09/24/19 15:05 86 09/24/19 13:17 92 H 18 95 09/24/19 12:00 37.2 C 82 18 145/77 H 92 09/24/19 08:00 36.8 C 78 77 20 159/72 H 96 09/24/19 07:02 82 16 96 (1) Depression Active/Remission status: remission status unspecified Depression Type: major depressive disorder Major depression recurrence: unspecified whether recurrent Qualified Code(s): F32.9 - Major depressive disorder, single episode, unspecified (2) Hyperlipidemia Hyperlipidemia type: unspecified Qualified Code(s): E78.5 - Hyperlipidemia, unspecified (3) Leukocytosis Leukocytosis type: unspecified Qualified Code(s): D72.829 - Elevated white blood cell count, unspecified (4) RLL pneumonia Pneumonia type: due to unspecified organism Qualified Code(s): J18.1 - Lobar pneumonia, unspecified organism (5) HTN (hypertension) Hypertension type: essential hypertension Qualified Code(s): I10 - Essential (primary) hypertension
[2019-09-24] MEDS: SERTRALINE HCL 50 MG TABLET PO SCH (20:14)
[2019-09-24] MEDS: SERTRALINE HCL 100 MG TABLET PO SCH (20:14)
[2019-09-24] MEDS: ENOXAPARIN INJ 30 MG/0.3 ML SYR SQ SCH (20:14)
[2019-09-24] MEDS: guaiFENesin SUGAR FREE 200 MG/10 ML UDC PO PRN (20:15)
[2019-09-24] MEDS: AZITHROMYCIN 500 MG in DEXTROSE 5% 250 ML IV SCH (20:19)
[2019-09-25] MEDS: ALBUT/IPRATROP 3MG/0.5MG NEB 3 ML VIAL NEB SCH ×2 (06:59→13:31)
[2019-09-25] MEDS: FLUTICASONE/SALMETEROL 250/50 (ADVAIR) 14 PUFF/1 INHALER INH SCH (08:33)
[2019-09-25] MEDS: ASCORBIC ACID 500 MG TAB PO SCH (08:34)
[2019-09-25] MEDS: MULTIVITAMIN TAB PO SCH (08:34)
[2019-09-25] MEDS: PRAVASTATIN SOD 40 MG TAB PO SCH (08:34)
[2019-09-25] MEDS ORDERED: predniSONE 20 MG TAB PO STA (12:55)
--- NOTE | 2019-09-25 13:03 | Hospitalist Progress Note ---
Date of Service September 25, 2019 Assessment & Plan (1) RLL pneumonia: (2) Hypoxia: (3) COPD (chronic obstructive pulmonary disease): COPD Exacerbation Present on admission with worsening SOB CXR showed infiltrate right base Received azithromycin/ceftriaxone in the ER Continue abx with Azithromycin and ceftriaxone Continue duoneb treatment and Advair Will discharge on prednisone 20 mg for x5 days and complete course of Zithromax Clinically improves (4) Leukocytosis: Due to above WBC on admission 12k, improved to 8K On Rocephin and Zithromax Blood cx no growth (5) Hyperlipidemia: Continue outpatient pravastatin 40 mg daily (6) Depression: Stable on outpatient regimen Continue sertraline 150 mg daily (7) HTN (hypertension): BP in the low side Continue outpatient metoprolol BID Continue monitor BP (8) CKD (chronic kidney disease), stage III: Creatinine is 0.8 today Stable Thrombocytopenia Platelet dropped to 104 No sign of bleeding Monitor BMP DVT px on SCDs(Low Platelet) /Ambulate CODE STATUS FULL CODE Disposition Discharge home today Subjective Pt was seen and examined Sitting in bed with no distress Pt said that her breathing feels much better She said that her cough is getting loose Denies any chest pain, palpitation, dizziness and SOB Physical Exam Physical Exam: General- No acute distress Head- atraumatic Eyes- PERRL, EOMI, ENT- oropharynx clear Neck- supple, no JVD Lungs- +faint Wheezing Heart- regular rhythm; no murmur Abdomen- normal bowel sounds, soft, nontender Extremities- no calf tenderness Neuro- alert, oriented x 3; PERRL, EOMI; no facial palsy; no dysarthria Skin- warm & dry Results & Data Vital Signs (Past 12 Hours) Vital Signs Temp Pulse Resp BP Pulse Ox 09/25/19 11:59 36.7 C 82 22 152/86 H 93 09/25/19 08:00 36.5 C 85 18 159/82 H 92 09/25/19 06:59 78 16 93 09/25/19 04:02 37.1 C 77 20 170/88 H 94 (1) Depression Active/Remission status: remission status unspecified Depression Type: major depressive disorder Major depression recurrence: unspecified whether recurrent Qualified Code(s): F32.9 - Major depressive disorder, single episode, unspecified (2) Hyperlipidemia Hyperlipidemia type: unspecified Qualified Code(s): E78.5 - Hyperlipidemia, unspecified (3) Leukocytosis Leukocytosis type: unspecified Qualified Code(s): D72.829 - Elevated white blood cell count, unspecified (4) RLL pneumonia Pneumonia type: due to unspecified organism Qualified Code(s): J18.1 - Lobar pneumonia, unspecified organism (5) HTN (hypertension) Hypertension type: essential hypertension Qualified Code(s): I10 - Essential (primary) hypertension
[2019-09-25] MEDS ORDERED: AZITHROMYCIN 250 MG TAB PO SCH (19:00)
--- NOTE | 2019-09-26 08:35 | Discharge Summary ---
Date of Service September 25, 2019 Admission HPI Per Admitting Provider This is an 79 y/o female with a history of COPD, ongoing tobacco use, hypertension, dyslipidemia, major depression, CKD III, PVD, and prior CVA who presents from her PCP office with hypoxia. Pt reports ongoing cough for the past 2-3 months but developed intermittent URI symptoms over the past 1-2 weeks. [place] like she was getting sick again over the weekend and used her nebulizer on Saturday evening (two days ago). That evening she was playing cards with her who reported that she "got woozy" which he describes as fatigued, lightheaded with transient confusion. Yesterday, she was more short of breath with any exertion and noted a low-grade fever (99-100). Due to the episode Saturday evening, her called for an appointment which was scheduled for today. Cough has been worsening and is productive of clear to white mucus. Denies hemoptysis. Due to underlying COPD and ongoing smoking, pt is chronically wheezing but family reports this has gotten worse over the past 24 hours. Pt denies chest pain or chest tightness. Pt reports breathing is somewhat improved after the one hour neb treatment in the ED although family reports pt's wheezing is still worse than baseline. Temperature at PCP office today was 101.1F and pt was hypoxic at 88% on RA so she was referred to the ED for additional evaluation. Family declined EMS transport. Pt is fatigued. Admission Exam Per Admitting Provider Constitutional: WD/WN, vitals as above no acute distress Eyes: PERRL, conjunctivae normal, anicteric sclerae ENMT: external ear and nose normal, oropharynx normal Neck: trachea midline Respiratory: no respiratory distress and does not use accessory muscles Auscultation: + diminished lung sounds, + rhonchi and + wheezes Scattered wheezes and rhonchi throughout Cardiovascular: regular rate and regular rhythm Heart Sounds: no gallop and no cardiac rub Extremities: normal capillary refill; no calf tenderness and no pedal edema Gastrointestinal: Inspection/Auscultation: normal bowel sounds; abdomen not distended Percussion/Palpation: abdomen soft; abdomen nontender Musculoskeletal: Head/Neck/Chest: normocephalic and head atraumatic Extremities: strength 5/5 throughout; no cyanosis and no clubbing Skin: no rashes, warm and dry no jaundice Neurologic: moves all extremities; no focal motor deficits Speech / Cognition: normal speech Psychiatric: A+Ox3, euthymic affect Principal Diagnosis (1) RLL pneumonia: (2) Hypoxia: (3) COPD Exacerbation 4) Leukocytosis: (5) Hyperlipidemia: (6) Depression: (7) HTN (hypertension): (8) CKD (chronic kidney disease), stage III: (9) Thrombocytopenia Discharge Exam General- No acute distress Head- atraumatic Eyes- PERRL, EOMI, ENT- oropharynx clear Neck- supple, no JVD Lungs- +faint Wheezing Heart- regular rhythm; no murmur Abdomen- normal bowel sounds, soft, nontender Extremities- no calf tenderness Neuro- alert, oriented x 3; PERRL, EOMI; no facial palsy; no dysarthria Skin- warm & dry Discharge Data Allergies Allergy/AdvReac Type Severity Reaction Status Date / Time No Known Allergies Allergy Unverified 03/22/17 11:35 Consultations 09/21/19 17:26 ED Decision to Admit Stat Ordered Studies XR chest 1V portable CLINICAL HISTORY: Dyspnea COMPARISON STUDY: 03/22/2017 FINDINGS: Poorly defined parenchymal infiltrate medial right base. Lungs otherwise appear clear. There is a component of emphysematous change. IMPRESSION: Infiltrate right base. Mild emphysematous change. The above report was generated using voice recognition software. It may contain grammatical, syntax or spelling errors. Electronically signed by: Dionisio Varner M.D. 09/21/2019 5:11 PM Dictated: 09/21/191706 Transcribed: 09/21/191706 Hospital Course (1) RLL pneumonia: (2) Hypoxia: (3) COPD (chronic obstructive pulmonary disease): COPD Exacerbation Present on admission with worsening SOB CXR showed infiltrate right base Received azithromycin/ceftriaxone in the ER Continue abx with Azithromycin and ceftriaxone Continue duoneb treatment and Advair Will discharge on prednisone 20 mg for x5 days and complete course of Zithromax Clinically improves (4) Leukocytosis: Due to above WBC on admission 12k, improved to 8K On Rocephin and Zithromax Blood cx no growth (5) Hyperlipidemia: Continue outpatient pravastatin 40 mg daily (6) Depression: Stable on outpatient regimen Continue sertraline 150 mg daily (7) HTN (hypertension): BP in the low side Continue outpatient metoprolol BID Continue monitor BP (8) CKD (chronic kidney disease), stage III: Creatinine is 0.8 today Stable Thrombocytopenia Platelet dropped to 104 No sign of bleeding Monitor BMP DVT px on SCDs(Low Platelet) /Ambulate CODE STATUS FULL CODE Disposition Discharge home today Total Time Total Time Spent Total Time Spent (In Minutes): 35 minutes Total Time Includes: Examination of the Patient, Discharge Planning, Medication Reconciliation, Communication With Other Providers and Other Discharge Plan Discharge Items Patient Disposition: Home - Self-Care Reason For Visit: RLL PNEUMONIA, HYPOXIA Discharge Diagnosis: (1) RLL pneumonia: (2) Hypoxia: (3) COPD Exacerbation Activity: Resume your previous activity Activity Comment: As tolerated Non-emergency contact: Primary Care Provider Call non-emergency contact if: you have any medication questions and your temperature is above 101 Follow-up/Referrals: Raz Hayes MD [Primary Care Provider] - Diet: Heart Healthy Addtl Attending Provider Instructions: Follow up with your primary care provider Dr. Hayes on 09/29 @ 12:25 PM Continue course of prednisone Fall precaution Pending Studies at Discharge: No Stand-Alone Forms: [employer], Smoking Cessation Medications and DC Order Prescriptions: New azithromycin [Zithromax] 250 mg Tablet 500 mg PO DAILY@1900 3 Days Qty: 3 RF: 0 prednisone 20 mg tablet 40 mg PO DAILY Qty: 4 RF: 0 guaifenesin 200 mg tablet 200 mg PO TID PRN (Reason: cough) Qty: 15 RF: 0 Continued fluticasone propion-salmeterol 250-50 mcg/dose blister with device 1 inh inhalation BID RF: 0 pravastatin 40 mg tablet 40 mg PO DAILY RF: 0 sertraline 100 mg tablet 100 mg PO QPM RF: 0 sertraline 50 mg tablet 50 mg PO QPM RF: 0 metoprolol tartrate 25 mg tablet 25 mg PO BID RF: 0 multivitamin Tablet 1 tab PO DAILY RF: 0 ascorbic acid (vitamin C) [Vitamin C] 500 mg Tablet 500 mg PO DAILY RF: 0 ipratropium-albuterol 0.5 mg-3 mg(2.5 mg base)/3 mL Solution For Nebulization 3 ml inhalation QID PRN (Reason: Shortness Of Breath Or Wheezing) 30 Days Qty: 90 RF: 0 Discharge Orders: Discharge Order (Routine); Ordered 09/25/19 Ordered By: Mark Torres Admission Data Admit Date/Time: 09/21/19 18:15 Attending Provider: Mark Torres Admit Provider: Emanuel Harrison Primary Care Provider: Raz Hayes Other Providers: Rosamaria Rosario I. ; Arvin Rayo Other Interventions: Discharge Summary Assessment (RN) Last Done: 09/25/19 13:48 DC Date/Time DO NOT enter until pt leaves facility: 09/25/19 15:19
== END 2019-09-25 15:19 | disposition home or self-care (01) | DRG 190 ==
LOC: ED 15:56 → 2S 18:15 → SUATTDRO 18:15 → 2S 21:28

== ENCOUNTER 2021-02-14 15:01 | Inpatient (IN) ==
[2021-02-14] MEDS ORDERED: SODIUM CHLORIDE 0.9% 500 ML IV ONE ×2 (15:42→17:20)
[2021-02-14] MEDS ORDERED: ACETAMINOPHEN 1,000 MG/100 ML VIAL IV STA (15:45)
[2021-02-14] MEDS ORDERED: guaiFENesin 600 MG TABCR PO STA (15:45)
[2021-02-14] MEDS ORDERED: dexAMETHasone**PF** 10 MG/ML VIAL IV ONE (15:45)
[2021-02-14 16:38] LABS: Basophils # (auto) 0.01 K/uL (0-0.2); Basophils % (auto) 0.1 %; Eosinophils % (auto) 0.8 %; Hematocrit (blood only) 35.1 % (37-47); Hemoglobin 11.5 g/dL (12.0-16.0); Immature Granulocytes # (auto) 0.02 K/uL (0.00-0.02); Immature Granulocytes % (auto) 0.2 %; Lymphocytes # (auto) 0.32 K/uL (1.2-3.4); Lymphocytes % (auto) 2.6 %; Mean Corpuscular Hemoglobin 29.6 pg (25-34); Mean Corpuscular Hgb Conc 32.8 g/dL (32-36); Mean Corpuscular Volume 90.2 fL (80-100); Mean Platelet Volume 9.7 fL (7.4-10.4); Monocytes # (auto) 0.43 K/uL (0.11-0.59); Monocytes % (auto) 3.5 %; Neutrophils # (auto) 11.49 K/uL (1.4-6.5); Neutrophils % (auto) 92.8 %; Platelet Count 117 K/uL (130-400); RDW Coefficient of Variation 14.8 % (11.5-14.5); RDW Standard Deviation 49.2 fL (36.4-46.3); Red Blood Count 3.89 M/uL (4.2-5.4); White Blood Count 12.37 K/uL (4.8-10.8)
[2021-02-14] MEDS ORDERED: PIPERACILL/TAZOBAC CONSULT ACTIVE PRN (16:47)
[2021-02-14] MEDS ORDERED: VANCOMYCIN CONSULT ACTIVE PRN (16:47)
[2021-02-14] MEDS ORDERED: VANCOMYCIN HCL 1,750 MG in SODIUM CHLORIDE 0.9% 500 ML IV ONE (16:47)
[2021-02-14] MEDS ORDERED: PIPERACILLIN/TAZOBACTAM 4.5 GM/120 ML BAG IV ONE (16:47)
[2021-02-14 16:51] LABS: INR 1.1 (0.9-1.1); Partial Thromboplastin Ratio 0.9; Partial Thromboplastin Time 22.4 Seconds (21.0-31.0); Prothrombin Time 10.7 Seconds (9.0-12.0)
[2021-02-14 16:52] LABS: Base Excess VBG 0.4 mEq/L; HCO3 VBG 26 mmol/L; PCO2 VBG 46 mmHg (38-50); PO2 VBG 25 mmHg; pH VBG 7.37 (7.36-7.41)
[2021-02-14 16:55] LABS: Oxygen Saturation VBG < 60.0 %
[2021-02-14 16:57] LABS: Alanine Aminotransferase 17 U/L (12-78); Aspartate Aminotransferase 17 U/L (15-37); BUN Creatinine Ratio 21.6 (10-20); Bilirubin Direct < 0.1 mg/dl (0-0.2); Blood Urea Nitrogen 25 mg/dl (7-18); Calcium 9.2 mg/dl (8.5-10.1); Carbon Dioxide 26 mmol/L (21-32); Chloride 107 mmol/L (98-107); Creatinine Clr Calc Pharmacy 33.9 ml/min; Est GFR (African American) 51.9; Est GFR (Non-African American) 44.7; Glucose 135 mg/dl (70-99); Lipase 39 U/L (73-393); Potassium 4.1 mmol/L (3.5-5.1); Sodium 138 mmol/L (136-145)
[2021-02-14 16:59] LABS: Albumin Globulin Ratio 0.8 (0.9-2); Alkaline Phosphatase 103 U/L (45-117); Bilirubin,Total 0.4 mg/dl (0.2-1); Creatine Kinase 21 U/L (26-192); Globulin 3.9 gm/dl (2.5-4.0); NT Pro B Type Natriuretic Pept 2888 pg/ml (0-1800); Phosphorus 2.8 mg/dl (2.5-4.9); Total Protein 6.9 gm/dl (6.4-8.2); Troponin I 0.023 ng/ml (0-0.045)
--- NOTE | 2021-02-14 17:07 | Emergency Department Note ---
Impression & Plan Recurrent pneumonia, Bronchiectasis, Sepsis, Dehydration ED Provider Note NAME: MALISSA CORRAL AGE: 81 SEX: F ARRIVES VIA: Walk-In INFORMANT: Patient, ED PROVIDER(S): Maximiliano Chen MD CHIEF COMPLAINT: Fever, Shortness of breath. PLAN: Disposition: Admit MEDICAL DECISION MAKING: The patient is a pleasant 81-year-old woman with a past medical history of dementia, COPD/bronchiectasis, hypertension, history of PE, CKD, history of COVID-19 pneumonia in October-November who presents to the emergency department accompanied by her daughter with ongoing cough, congestion shortness of breath and body aches that have persisted since her COVID-19 infection but recently worsened over the past couple weeks and more so over the past couple days with intermittent low-grade fevers and so now present to the emergency department due to worsening symptoms. The patient did have a lower respiratory culture performed on 01/23 through her [facility] automatic beam warper tender and grew moderate Pseudomonas that was pansensitive. However, per the daughter the patient is on her second course of Levaquin and has not been improving. She reports decreased appetite but denies any vomiting or diarrhea or urinary symptoms. She has generalized body aches but denies chest pain. On arrival the patient is fatigued/uncomfortable appearing in no acute distress, with temperature of 37.7 heart rate in the 100s and blood pressure 89/50s though improving to the 100s/60s. Her O2 saturation is 93% on room air without increased respiratory effort. She does appear clinically dry. EKG without overt acute ischemia. WBC 12.3, nonspecific. H/H 11.5/35.1 and platelets 117K similar to recent range of values. VBG unremarkable. Chemistry without metabolic acidosis. BUN/creatinine> 20 consistent with the patient's clinically dry appearance. Electrolytes otherwise unremarkable. LFTs without significant abnormality. Troponin 0.023, within normal limits. BNP 2800, nonspecific. Lipase is not elevated. Procalcitonin was elevated at 0.78, nonspecific. Chest x-ray demonstrates improved left airspace opacities however CTA of the chest demonstrates new airspace opacities which is consistent with the patient's new fevers and progression of symptoms. CTA was negative for PE. Given the patient's worsening symptoms despite outpatient treatment with levofloxacin she was covered empirically with broad-spectrum antibiotics with Zosyn and vancomycin. Despite initial improvement in blood pressure she would continue to be hypotensive. IV fluid hydration administered cautiously given unclear significance of BNP. Blood pressure did respond with additional IV fluid hydration. Case was discussed with Ty Guardado, with Dr. Bob Crawford hospitalist who will evaluate the patient for admission. Triage Nursing notes reviewed and agree them. Additional history obtained from [facility] records Prior medical records reviewed Vital Signs: reviewed and remarkable for tachycardia, hypotension, fever. Differential diagnosis: Reactive airway disease, pneumonia, pneumothorax, COPD, CHF, infections, cardiac ischemia, pulmonary embolism, musculoskeletal, gastrointestinal, as well as other pathologies. ER treatment provided: See below. Diagnostics interpreted by me: ECG: Sinus tachycardia, 108 bpm, no ectopy, no overt ST elevation or depression, QTC 428, QRS 96. Cardiac Monitoring: An order for continuous cardiac monitoring was placed and demonstrated Sinus tachycardia, 108 bpm, no ectopy Laboratory studies: See below Imaging studies: XR chest 1V portable HISTORY: SEPSIS COMPARISON: 11/18/2020. FINDINGS: No pneumothorax. No pleural effusions. The heart is mildly enlarged. There is mild diffuse interstitial thickening. This is likely chronic. Old, healed right rib fractures. No evidence for pulmonary edema. Left basilar airspace opacities have improved. IMPRESSION: Interval improvement in left basilar airspace opacities which could represent a chronic pneumonitis. No new focal lung consolidations identified. ACT 112: Negative or not required by law. Consultation(s): Case was discussed with Ty Guardado, with Dr. Bob johnson who will evaluate the patient for admission. HPI: The patient is a pleasant 81-year-old woman with a past medical history of dementia, COPD/bronchiectasis, hypertension, history of PE, CKD, history of COVID-19 pneumonia in October-November who presents to the emergency department accompanied by her daughter with ongoing cough, congestion shortness of breath and body aches that have persisted since her COVID-19 infection but recently worsened over the past couple weeks and more so over the past couple days with intermittent low-grade fevers and so now present to the emergency department due to worsening symptoms. The patient did have a lower respiratory culture perform ed on 01/23 through her [facility] automatic beam warper tender and grew moderate Pseudomonas that was pansensitive. However, per the daughter the patient is on her second course of Levaquin and has not been improving. She reports decreased appetite but denies any vomiting or diarrhea or urinary symptoms. She has generalized body aches but denies chest pain. ROS: See above HPI for pertinent positives & negatives. A total of 10 systems reviewed and were otherwise negative. PAST MEDICAL HISTORY:See Below PAST SURGICAL HISTORY:See Below FAMILY HISTORY:See Below SOCIAL HISTORY:See Below HOME MEDICATIONS:See Below ALLERGIES:See Below VITALS:See Below PHYSICAL EXAMINATION: GENERAL: Awake, alert, fatigued/uncomfortable-appearing, in no distress HENT: Normocephalic, atraumatic. Oropharynx with dry mucous membranes and otherwise unremarkable. EYES: Normal conjunctiva. Sclera non-icteric. NECK: Supple. No nuchal rigidity. FROM. No JVD. RESPIRATORY: Scattered intermittent wheezes and diminished at the bases. CARDIAC: Tachycardic rate, normal rhythm. Extremities warm and well perfused. Pulses equal. ABDOMEN: Soft, non-distended. No tenderness to palpation. No rebound or guarding. No masses. RECTAL: Deferred. MUSCULOSKELETAL: Chest examination reveals no tenderness. The back is symmetrical on inspection without obvious abnormality. There is no CVA tenderness to palpation. No joint edema. LOWER EXTREMITIES: Calves are equal size bilaterally and non-tender. No edema. No discoloration. NEURO: Normal sensorium. No sensory or motor deficits noted. SKIN: No rash or jaundice noted. ED COURSE: Critical Care: I have personally spent greater than 35 minutes of critical care time in the direct management of this patient. This includes bedside care, interpretation of diagnostic studies, and testing, discussion with consultants, patient, and family members, and other required patient management activities. This 35 minutes is in excess of all separately billable procedures. Maximiliano Chen MD Past Med/Surg History Medical History AAA (abdominal aortic aneurysm) "s/p repair of ruptured AAA in 2010" CKD (chronic kidney disease), stage III COPD (chronic obstructive pulmonary disease) Depression Female stress incontinence H/O: CVA (cerebrovascular accident) Hip fracture History of pulmonary embolism HTN (hypertension) Hyperlipidemia Tobacco use disorder Surgical History S/P AAA repair "s/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 Desir with bifurcated graft, left femoral thromboendarterectomy with patch angioplasty, right femoral thromboendarterectomy, and right iliofemoral bypass" S/P laparotomy "10/16/11- abdominal exploration, wound vac placement; 10/18/11- abdominal washout and closure. " S/P ORIF (open reduction internal fixation) fracture "left hip" Family History Other Diabetes Heart disease Social History Smoking Status: Former smoker Tobacco Type: Cigarettes Cigarettes Per Day: 5; Smoking End Date: 2019; Hx Alcohol Use: Yes Hx Substance Use: No Preferred Language: Citizen Of [place] Communication Ability: Impaired [employer] Required: No Beliefs That Will Affect Care: None marital status: Current Living Situation: Family Other Information That Helps Us Care for You: No Feels Safe at Home: Yes Safety Concerns: Afraid for Self Assistive Devices: Glasses and Oxygen - Continuous Allergies Allergies Allergy/AdvReac Type Severity Reaction Status Date / Time No Known Allergies Allergy Unverified 02/14/21 17:13 Home Meds Home Medications Medication Instructions Recorded Confirmed ascorbic acid (vitamin C) [Vitamin 500 mg PO QAM 09/21/19 02/14/21 C] metoprolol tartrate 25 mg PO BID 09/21/19 02/14/21 multivitamin 1 tab PO QAM 09/21/19 02/14/21 pravastatin 40 mg PO HS 09/21/19 02/14/21 sertraline 50 mg PO QPM 09/21/19 02/14/21 sertraline 100 mg PO QPM 09/21/19 02/14/21 Advair HFA 2 puff INHALATION BID 11/01/20 02/14/21 albuterol sulfate 2.5 mg INHALATION UD 11/01/20 02/14/21 aspirin 81 mg PO DAILY 02/14/21 02/14/21 cholecalciferol (vitamin D3) 50 mcg PO QAM 02/14/21 02/14/21 [Vitamin D3] diclofenac sodium 1 ea TOPICAL QID PRN 02/14/21 02/14/21 guaifenesin [Mucinex] 1,200 mg PO BID 02/14/21 02/14/21 ipratropium-albuterol 3 ml INHALATION QID 02/14/21 02/14/21 melatonin 2.5 mg PO HS PRN 02/14/21 02/14/21 Results & Data (ED) Vital Signs Vital Signs - 24 hr 02/14/21 15:21 02/14/21 15:30 02/14/21 15:35 Temperature 37.7 C H Temperature Source Temporal Artery Scan Pulse Rate 112 H 108 H 108 H Pulse Rate from SpO2 Sensor 109 H 108 H Respiratory Rate 22 20 17 Respiratory Pattern Regular Blood Pressure 86/44 L 119/71 Blood Pressure Mean 58 87 Blood Pressure Position Sitting Pulse Oximetry 93 93 94 Oxygen Delivery Method Room Air Sepsis Recent Fever Within 48 Hours Yes Sepsis New/Unexplained Change in Mental Status Yes Sepsis Action Taken by Nursing Physician Notified 02/14/21 15:40 02/14/21 15:50 02/14/21 16:00 Temperature Temperature Source Pulse Rate 106 H 107 H 106 H Pulse Rate from SpO2 Sensor 107 H 107 H 106 H Respiratory Rate 24 19 22 Respiratory Pattern Blood Pressure 94/56 L Blood Pressure Mean 68 Blood Pressure Position Pulse Oximetry 93 94 94 Oxygen Delivery Method Sepsis Recent Fever Within 48 Hours Sepsis New/Unexplained Change in Mental Status Sepsis Action Taken by Nursing 02/14/21 16:10 02/14/21 16:20 02/14/21 16:30 Temperature Temperature Source Pulse Rate 107 H 109 H 102 H Pulse Rate from SpO2 Sensor 106 H 102 H Respiratory Rate 20 25 H 19 Respiratory Pattern Blood Pressure 89/50 L Blood Pressure Mean 63 Blood Pressure Position Pulse Oximetry 94 93 Oxygen Delivery Method Sepsis Recent Fever Within 48 Hours Sepsis New/Unexplained Change in Mental Status Sepsis Action Taken by Nursing 02/14/21 16:40 02/14/21 16:50 02/14/21 17:00 Temperature Temperature Source Pulse Rate 101 H 100 H Pulse Rate from SpO2 Sensor 101 H 100 H 102 H Respiratory Rate 25 H 21 Respiratory Pattern Blood Pressure 90/56 L Blood Pressure Mean 67 Blood Pressure Position Pulse Oximetry 94 93 94 Oxygen Delivery Method Sepsis Recent Fever Within 48 Hours Sepsis New/Unexplained Change in Mental Status Sepsis Action Taken by Nursing 02/14/21 17:10 02/14/21 17:26 02/14/21 17:30 Temperature Temperature Source Pulse Rate 87 Pulse Rate from SpO2 Sensor 100 H 96 H 89 Respiratory Rate Respiratory Pattern Blood Pressure 82/47 L Blood Pressure Mean 58 Blood Pressure Position Pulse Oximetry 94 92 94 Oxygen Delivery Method Sepsis Recent Fever Within 48 Hours Sepsis New/Unexplained Change in Mental Status Sepsis Action Taken by Nursing 02/14/21 17:40 02/14/21 17:49 02/14/21 17:50 Temperature Temperature Source Pulse Rate 91 H 87 Pulse Rate from SpO2 Sensor 89 92 H 92 H Respiratory Rate 14 24 Respiratory Pattern Blood Pressure 88/50 L Blood Pressure Mean 62 Blood Pressure Position Pulse Oximetry 93 92 93 Oxygen Delivery Method Sepsis Recent Fever Within 48 Hours Sepsis New/Unexplained Change in Mental Status Sepsis Action Taken by Nursing 02/14/21 18:00 02/14/21 18:10 02/14/21 18:20 Temperature Temperature Source Pulse Rate 88 87 Pulse Rate from SpO2 Sensor 88 87 88 Respiratory Rate 13 18 Respiratory Pattern Blood Pressure 82/48 L Blood Pressure Mean 59 Blood Pressure Position Pulse Oximetry 94 93 94 Oxygen Delivery Method Sepsis Recent Fever Within 48 Hours Sepsis New/Unexplained Change in Mental Status Sepsis Action Taken by Nursing 02/14/21 18:23 02/14/21 18:27 02/14/21 18:30 Temperature Temperature Source Pulse Rate Pulse Rate from SpO2 Sensor 92 H 90 94 H Respiratory Rate 14 33 H 23 Respiratory Pattern Blood Pressure 95/51 L Blood Pressure Mean 63 65 68 Blood Pressure Position Pulse Oximetry 94 93 94 Oxygen Delivery Method Sepsis Recent Fever Within 48 Hours Sepsis New/Unexplained Change in Mental Status Sepsis Action Taken by Nursing Laboratory Data Result diagrams: 02/16/21 06:33 02/16/21 06:33 Lab Results 02/14/21 02/14/21 02/14/21 Range/Units 16:17 16:17 16:17 WBC 12.37 H (4.8-10.8) K/uL RBC 3.89 L (4.2-5.4) M/uL Hgb 11.5 L (12.0-16.0) g/dL Hct 35.1 L (37-47) % MCV 90.2 (80-100) fL MCH 29.6 (25-34) pg MCHC 32.8 (32-36) g/dL RDW Std Deviation 49.2 H (36.4-46.3) fL RDW Coeff of Wayne 14.8 H (11.5-14.5) % Plt Count 117 L (130-400) K/uL MPV 9.7 (7.4-10.4) fL Immature Gran % (Auto) 0.2 % Neut % (Auto) 92.8 % Lymph % (Auto) 2.6 % Dougherty % (Auto) 3.5 % Eos % (Auto) 0.8 % Baso % (Auto) 0.1 % Neut # (Auto) 11.49 H (1.4-6.5) K/uL Lymph # (Auto) 0.32 L (1.2-3.4) K/uL Dougherty # (Auto) 0.43 (0.11-0.59) K/uL Eos # (Auto) 0.10 (0-0.5) K/uL Baso # (Auto) 0.01 (0-0.2) K/uL Immature Gran # (Auto) 0.02 (0.00-0.02) K/uL PT 10.7 (9.0-12.0) Seconds INR 1.1 (0.9-1.1) APTT 22.4 (21.0-31.0) Seconds PTT Ratio 0.9 VBG pH (7.36-7.41) VBG pCO2 (38-50) mmHg VBG pO2 mmHg VBG HCO3 mmol/L VBG O2 Saturation % VBG Base Excess mEq/L Barometric Pressure mm/Hg Sodium 138 (136-145) mmol/L Potassium 4.1 (3.5-5.1) mmol/L Chloride 107 (98-107) mmol/L Carbon Dioxide 26 (21-32) mmol/L Anion Gap 5.0 (3-11) BUN 25 H (7-18) mg/dl Creatinine 1.14 (0.6-1.2) mg/dl Est Cr Clr Drug Dosing 33.9 ml/min Est GFR ( Amer) 51.9 Est GFR (Non-Af Amer) 44.7 BUN/Creatinine Ratio 21.6 H (10-20) Glucose 135 H (70-99) mg/dl Lactate (0.4-2.0) mmol/L Calcium 9.2 (8.5-10.1) mg/dl Phosphorus 2.8 (2.5-4.9) mg/dl Magnesium 2.0 (1.8-2.4) mg/dl Total Bilirubin 0.4 (0.2-1) mg/dl Direct Bilirubin < 0.1 (0-0.2) mg/dl AST 17 (15-37) U/L ALT 17 (12-78) U/L Alkaline Phosphatase 103 (45-117) U/L Total Creatine Kinase 21 L (26-192) U/L Troponin I 0.023 (0-0.045) ng/ml NT-Pro-B Natriuret Pep 2888 H (0-1800) pg/ml Total Protein 6.9 (6.4-8.2) gm/dl Albumin 3.0 L (3.4-5.0) gm/dl Globulin 3.9 (2.5-4.0) gm/dl Albumin/Globulin Ratio 0.8 L (0.9-2) Lipase 39 L (73-393) U/L Procalcitonin (0-0.5) ng/ml COVID-19 Eval Order SARS-CoV-2 (PCR) (Negative) Influenza Type A (PCR) (Neg) Influenza Type B (PCR) (Neg) RSV (RT-PCR) (Neg) 02/14/21 02/14/21 02/14/21 Range/Units 16:17 16:20 16:20 WBC (4.8-10.8) K/uL RBC (4.2-5.4) M/uL Hgb (12.0-16.0) g/dL Hct (37-47) % MCV (80-100) fL MCH (25-34) pg MCHC (32-36) g/dL RDW Std Deviation (36.4-46.3) fL RDW Coeff of Wayne (11.5-14.5) % Plt Count (130-400) K/uL MPV (7.4-10.4) fL Immature Gran % (Auto) % Neut % (Auto) % Lymph % (Auto) % Dougherty % (Auto) % Eos % (Auto) % Baso % (Auto) % Neut # (Auto) (1.4-6.5) K/uL Lymph # (Auto) (1.2-3.4) K/uL Dougherty # (Auto) (0.11-0.59) K/uL Eos # (Auto) (0-0.5) K/uL Baso # (Auto) (0-0.2) K/uL Immature Gran # (Auto) (0.00-0.02) K/uL PT (9.0-12.0) Seconds INR (0.9-1.1) APTT (21.0-31.0) Seconds PTT Ratio VBG pH (7.36-7.41) VBG pCO2 (38-50) mmHg VBG pO2 mmHg VBG HCO3 mmol/L VBG O2 Saturation % VBG Base Excess mEq/L Barometric Pressure mm/Hg Sodium (136-145) mmol/L Potassium (3.5-5.1) mmol/L Chloride (98-107) mmol/L Carbon Dioxide (21-32) mmol/L Anion Gap (3-11) BUN (7-18) mg/dl Creatinine (0.6-1.2) mg/dl Est Cr Clr Drug Dosing ml/min Est GFR ( Amer) Est GFR (Non-Af Amer) BUN/Creatinine Ratio (10-20) Glucose (70-99) mg/dl Lactate (0.4-2.0) mmol/L Calcium (8.5-10.1) mg/dl Phosphorus (2.5-4.9) mg/dl Magnesium (1.8-2.4) mg/dl Total Bilirubin (0.2-1) mg/dl Direct Bilirubin (0-0.2) mg/dl AST (15-37) U/L ALT (12-78) U/L Alkaline Phosphatase (45-117) U/L Total Creatine Kinase (26-192) U/L Troponin I (0-0.045) ng/ml NT-Pro-B Natriuret Pep (0-1800) pg/ml Total Protein (6.4-8.2) gm/dl Albumin (3.4-5.0) gm/dl Globulin (2.5-4.0) gm/dl Albumin/Globulin Ratio (0.9-2) Lipase (73-393) U/L Procalcitonin 0.78 H (0-0.5) ng/ml COVID-19 Eval Order CovFluRsv at [facility] SARS-CoV-2 (PCR) NEGATIVE (Negative) Influenza Type A (PCR) Negative (Neg) Influenza Type B (PCR) Negative (Neg) RSV (RT-PCR) Negative (Neg) 02/14/21 02/14/21 02/14/21 Range/Units 16:39 16:39 18:30 WBC (4.8-10.8) K/uL RBC (4.2-5.4) M/uL Hgb (12.0-16.0) g/dL Hct (37-47) % MCV (80-100) fL MCH (25-34) pg MCHC (32-36) g/dL RDW Std Deviation (36.4-46.3) fL RDW Coeff of Wayne (11.5-14.5) % Plt Count (130-400) K/uL MPV (7.4-10.4) fL Immature Gran % (Auto) % Neut % (Auto) % Lymph % (Auto) % Dougherty % (Auto) % Eos % (Auto) % Baso % (Auto) % Neut # (Auto) (1.4-6.5) K/uL Lymph # (Auto) (1.2-3.4) K/uL Dougherty # (Auto) (0.11-0.59) K/uL Eos # (Auto) (0-0.5) K/uL Baso # (Auto) (0-0.2) K/uL Immature Gran # (Auto) (0.00-0.02) K/uL PT (9.0-12.0) Seconds INR (0.9-1.1) APTT (21.0-31.0) Seconds PTT Ratio VBG pH 7.37 (7.36-7.41) VBG pCO2 46 (38-50) mmHg VBG pO2 25 mmHg VBG HCO3 26 mmol/L VBG O2 Saturation < 60.0 % VBG Base Excess 0.4 mEq/L Barometric Pressure 735.1 mm/Hg Sodium (136-145) mmol/L Potassium (3.5-5.1) mmol/L Chloride (98-107) mmol/L Carbon Dioxide (21-32) mmol/L Anion Gap (3-11) BUN (7-18) mg/dl Creatinine (0.6-1.2) mg/dl Est Cr Clr Drug Dosing ml/min Est GFR ( Amer) Est GFR (Non-Af Amer) BUN/Creatinine Ratio (10-20) Glucose (70-99) mg/dl Lactate 2.2 H* 2.1 H* (0.4-2.0) mmol/L Calcium (8.5-10.1) mg/dl Phosphorus (2.5-4.9) mg/dl Magnesium (1.8-2.4) mg/dl Total Bilirubin (0.2-1) mg/dl Direct Bilirubin (0-0.2) mg/dl AST (15-37) U/L ALT (12-78) U/L Alkaline Phosphatase (45-117) U/L Total Creatine Kinase (26-192) U/L Troponin I (0-0.045) ng/ml NT-Pro-B Natriuret Pep (0-1800) pg/ml Total Protein (6.4-8.2) gm/dl Albumin (3.4-5.0) gm/dl Globulin (2.5-4.0) gm/dl Albumin/Globulin Ratio (0.9-2) Lipase (73-393) U/L Procalcitonin (0-0.5) ng/ml COVID-19 Eval Order SARS-CoV-2 (PCR) (Negative) Influenza Type A (PCR) (Neg) Influenza Type B (PCR) (Neg) RSV (RT-PCR) (Neg) Administered Medications Acetylcysteine (Acetylcysteine 20% Inhal Soln 4ml Dispensed By Resp.) 5 ml INH Q12R ALEX Stop: 03/17/21 18:59 Last Admin: 02/16/21 20:24 Dose: 5 ml Documented by: [id number] Admin: 02/16/21 07:47 Dose: 5 ml Documented by: [id number] Admin: 02/15/21 20:20 Dose: 5 ml Documented by: [id number] Albuterol (Albut/Ipratrop 3mg/0.5mg Neb 3 Ml Vial) 3 ml INH QIDR ALEX Stop: 03/17/21 06:59 Last Admin: 02/16/21 20:24 Dose: 3 ml Documented by: [id number] Admin: 02/16/21 14:47 Dose: 3 ml Documented by: [id number] Admin: 02/16/21 11:27 Dose: 3 ml Documented by: [id number] Admin: 02/16/21 07:48 Dose: 3 ml Documented by: [id number] Admin: 02/15/21 20:17 Dose: 3 ml Documented by: [id number] Admin: 02/15/21 14:58 Dose: 3 ml Documented by: [id number] Admin: 02/15/21 11:07 Dose: 3 ml Documented by: [id number] Admin: 02/15/21 08:17 Dose: 3 ml Documented by: [id number] Ascorbic Acid (Ascorbic Acid 500 Mg Tab) 500 mg PO QAM ALEX Stop: 03/17/21 08:59 Last Admin: 02/16/21 08:46 Dose: 500 mg Documented by: [id number] Admin: 02/15/21 08:19 Dose: 500 mg Documented by: [id number] Aspirin (Aspirin 81 Mg Ectab) 81 mg PO DAILY ALEX Stop: 03/17/21 08:59 Last Admin: 02/16/21 08:45 Dose: 81 mg Documented by: [id number] Admin: 02/15/21 08:18 Dose: 81 mg Documented by: [id number] Enoxaparin Sodium (Enoxaparin Inj 30 Mg/0.3 Ml Syr) 30 mg SQ Q24H ALEX Stop: 03/16/21 21:59 Last Admin: 02/16/21 20:07 Dose: 30 mg Documented by: [id number] Admin: 02/15/21 22:12 Dose: 30 mg Documented by: [id number] Admin: 02/14/21 22:04 Dose: 30 mg Documented by: [id number] Fluticasone/Vilanterol (Fluticasone/Vilanterol 100/25mcg 14 Puffs/Inhaler) 1 puffs INH DAILY ALEX Stop: 03/17/21 08:59 Last Admin: 02/16/21 13:18 Dose: 1 puffs Documented by: [id number] Admin: 02/15/21 08:16 Dose: 1 puffs Documented by: [id number] Guaifenesin (Guaifenesin 600 Mg Tabcr) 1,200 mg PO BID ALEX Stop: 03/16/21 21:08 Last Admin: 02/16/21 20:07 Dose: 1,200 mg Documented by: [id number] Admin: 02/16/21 08:45 Dose: 1,200 mg Documented by: [id number] Admin: 02/15/21 20:37 Dose: 1,200 mg Documented by: [id number] Admin: 02/15/21 08:17 Dose: 1,200 mg Documented by: [id number] Admin: 02/14/21 22:03 Dose: 1,200 mg Documented by: [id number] Cefepime HCl 2,000 mg/ Syringe 20 mls @ 5 mls/min IV Q12H [facility]; Protocol Stop: 02/22/21 09:59 Last Admin: 02/16/21 22:17 Dose: 5 mls/min Documented by: [id number] Admin: 02/16/21 10:00 Dose: 5 mls/min Documented by: [id number] Admin: 02/15/21 22:12 Dose: 5 mls/min Documented by: [id number] Admin: 02/15/21 10:38 Dose: 5 mls/min Documented by: [id number] Vancomycin HCl 1,250 mg/ (Sodium Chloride) 275 mls @ 200 mls/hr IV Q24H [facility] Stop: 02/22/21 19:59 Last Infusion: 02/16/21 21:59 Dose: 0 mls/hr Documented by: [id number] Admin: 02/16/21 20:08 Dose: 200 mls/hr Documented by: [id number] Infusion: 02/15/21 22:04 Dose: 0 mls/hr Documented by: [id number] Admin: 02/15/21 19:54 Dose: 200 mls/hr Documented by: [id number] Lactobacillus Acidoph/Casei/Rhamnos (Advanced Probiotic 1250 Mg Capsule) 2 cap PO DAILY [facility] Stop: 03/17/21 20:54 Last Admin: 02/16/21 08:45 Dose: 2 cap Documented by: [id number] Admin: 02/15/21 22:12 Dose: 2 cap Documented by: [id number] Metoprolol Tartrate (Metoprolol Tartrate 25 Mg Tab) 25 mg PO BID [facility] Stop: 03/16/21 21:08 Last Admin: 02/16/21 20:06 Dose: 25 mg Documented by: [id number] Admin: 02/16/21 08:46 Dose: 25 mg Documented by: [id number] Admin: 02/15/21 20:37 Dose: 25 mg Documented by: [id number] Admin: 02/15/21 08:16 Dose: 25 mg Documented by: [id number] Admin: 02/14/21 22:03 Dose: 25 mg Documented by: [id number] Multivitamins (Multivitamin Tab) 1 tab PO QAM [facility] Stop: 03/17/21 08:59 Last Admin: 02/16/21 08:45 Dose: 1 tab Documented by: [id number] Admin: 02/15/21 08:16 Dose: 1 tab Documented by: [id number] Pravastatin Sodium (Pravastatin Sod 40 Mg Tab) 40 mg PO HS ALEX Stop: 03/16/21 21:08 Last Admin: 02/16/21 20:07 Dose: 40 mg Documented by: [id number] Admin: 02/15/21 20:38 Dose: 40 mg Documented by: [id number] Admin: 02/14/21 22:03 Dose: 40 mg Documented by: [id number] Sertraline HCl (Sertraline Hcl 50 Mg Tablet) 50 mg PO QPM ALEX Stop: 03/16/21 21:08 Last Admin: 02/16/21 20:06 Dose: 50 mg Documented by: [id number] Admin: 02/15/21 20:38 Dose: 50 mg Documented by: [id number] Admin: 02/14/21 22:02 Dose: 50 mg Documented by: [id number] Sertraline HCl (Sertraline Hcl 100 Mg Tablet) 100 mg PO QPM ALEX Stop: 03/16/21 21:08 Last Admin: 02/16/21 20:06 Dose: 100 mg Documented by: [id number] Admin: 02/15/21 20:38 Dose: 100 mg Documented by: [id number] Admin: 02/14/21 22:03 Dose: 100 mg Documented by: [id number] Vitamin D (Cholecalciferol 1,000 Units 25 Mcg Tab) 2,000 units PO QAM [facility] Stop: 03/17/21 08:59 Last Admin: 02/16/21 08:46 Dose: 2,000 units Documented by: [id number] Admin: 02/15/21 08:17 Dose: 2,000 units Documented by: [id number] Discontinued Medications Albuterol (Albuterol 0.083% Nebu Soln 3 Ml Vial) 2.5 mg INH BIDR ALEX Stop: 02/15/21 06:59 Last Admin: 02/14/21 21:51 Dose: 2.5 mg Documented by: [id number] Dexamethasone Sodium Phosphate (DexamethasonePf 10 Mg/Ml Vial) 10 mg IV NOW ONE Stop: 02/14/21 15:46 Last Admin: 02/14/21 16:16 Dose: 10 mg Documented by: [id number] Guaifenesin (Guaifenesin 600 Mg Tabcr) 600 mg PO NOW STA Stop: 02/14/21 15:46 Last Admin: 02/14/21 16:16 Dose: 600 mg Documented by: [id number] Haloperidol Lactate (Haloperidol Lactate 5 Mg/Ml 1 Ml Vial) 0.5 mg IM NOW STA Stop: 02/17/21 00:34 Last Admin: 02/17/21 00:41 Dose: 0.5 mg Documented by: [id number] Sodium Chloride (Nss) 500 mls @ 999 mls/hr IV .Q31M ONE Stop: 02/14/21 16:12 Last Infusion: 02/14/21 16:50 Dose: 0 mls/hr Documented by: [id number] Admin: 02/14/21 16:16 Dose: 999 mls/hr Documented by: [id number] Acetaminophen ([facility]) 1,000 mg in 100 mls @ 400 mls/hr IV NOW STA Stop: 02/14/21 15:59 Last Infusion: 02/14/21 16:30 Dose: 0 mls/hr Documented by: [id number] Admin: 02/14/21 16:16 Dose: 400 mls/hr Documented by: [id number] Piperacillin Sod/Tazobactam Sod (Zosyn) 4.5 gm in 120 mls @ 240 mls/hr IV NOW ONE Stop: 02/14/21 17:16 Last Infusion: 02/14/21 21:10 Dose: 0 mls/hr Documented by: [id number] Admin: 02/14/21 18:38 Dose: 240 mls/hr Documented by: [id number] Vancomycin HCl 1,750 mg/ (Sodium Chloride) 535 mls @ 200 mls/hr IV NOW ONE Stop: 02/14/21 19:27 Last Infusion: 02/14/21 23:28 Dose: 0 mls/hr Documented by: [id number] Admin: 02/14/21 19:23 Dose: 200 mls/hr Documented by: [id number] Sodium Chloride (Nss) 500 mls @ 999 mls/hr IV .Q31M ONE Stop: 02/14/21 17:50 Last Admin: 02/14/21 18:38 Dose: Not Given Documented by: [id number] Sodium Chloride (Nss 1000ml) 1,000 mls @ 999 mls/hr IV .Q1H1M ONE Stop: 02/14/21 18:45 Last Infusion: 02/14/21 21:10 Dose: 0 mls/hr Documented by: [id number] Admin: 02/14/21 18:20 Dose: 999 mls/hr Documented by: [id number] Sodium Chloride (Nss 1000ml) 1,000 mls @ 100 mls/hr IV .Q10H ALEX Stop: 02/15/21 07:08 Last Infusion: 02/15/21 03:17 Dose: 0 mls/hr Documented by: [id number] Admin: 02/14/21 22:00 Dose: 100 mls/hr Documented by: [id number] Cefepime HCl 2,000 mg/ Syringe 20 mls @ 5 mls/min IV 2200 ONE Stop: 02/14/21 22:03 Last Admin: 02/14/21 22:11 Dose: 5 mls/min Documented by: [id number] Sodium Chloride (Nss 1000ml) 1,000 mls @ 150 mls/hr IV .Q6H40M ONE Stop: 02/15/21 08:16 Last Infusion: 02/15/21 21:03 Dose: 0 mls/hr Documented by: [id number] Infusion: 02/15/21 03:53 Dose: 0 mls/hr Documented by: [id number] Admin: 02/15/21 01:57 Dose: 150 mls/hr Documented by: [id number] Lactated Ringer's (Lr) 1,000 mls @ 500 mls/hr IV .Q2H ONE Stop: 02/15/21 05:23 Last Infusion: 02/15/21 05:30 Dose: 0 mls/hr Documented by: [id number] Admin: 02/15/21 03:52 Dose: 500 mls/hr Documented by: [id number] Lactated Ringer's (Lr) 1,000 mls @ 100 mls/hr IV .Q10H ALEX Stop: 03/17/21 05:29 Last Infusion: 02/15/21 20:57 Dose: 0 mls/hr Documented by: [id number] Admin: 02/15/21 10:12 Dose: 100 mls/hr Documented by: [id number] Infusion: 02/15/21 10:12 Dose: 100 mls/hr Documented by: [id number] Admin: 02/15/21 05:28 Dose: 100 mls/hr Documented by: [id number] Ioversol (Optiray 320 125ml) 116 ml IV ONCE ONE Stop: 02/14/21 20:32 Last Admin: 02/14/21 20:32 Dose: 116 ml Documented by: [id number] Prednisone (Prednisone 20 Mg Tab) 40 mg PO NOW STA Stop: 02/16/21 12:22 Last Admin: 02/16/21 13:24 Dose: 40 mg Documented by: [id number] Discharge Plan Visit Data Chief Complaint: Fever Stated Complaint: FEVER/CONFUSION ED Provider: Maximiliano Chen Discharge Problem: Recurrent pneumonia, Bronchiectasis, Sepsis, Dehydration Patient Disposition: Admitted As Inpatient Discharge Instructions Interventions: ED Discharge Assessment Last Done: 02/14/21 20:01 Discharge Problem: Bronchiectasis Qualifiers: Bronchiectasis type: with acute exacerbation Qualified Code(s): J47.1 - Bronchiectasis with (acute) exacerbation Sepsis Qualifiers: Sepsis type: sepsis due to unspecified organism Sepsis acute organ dysfunction status: unspecified Qualified Code(s): A41.9 - Sepsis, unspecified organism
--- NOTE | 2021-02-14 17:13 | XRay Report ---
XR chest 1V portable HISTORY: SEPSIS COMPARISON: 11/18/2020. FINDINGS: No pneumothorax. No pleural effusions. The heart is mildly enlarged. There is mild diffuse interstitial thickening. This is likely chronic. Old, healed right rib fractures. No evidence for pul monary edema. Left basilar airspace opacities have improved. IMPRESSION: Interval improvement in left basilar airspace opacities which could represent a chronic pneumonitis. No new focal lung consolidations identified. ACT 112: Negative or not required by law. Electronically signed by: Leander Collier M.D. 02/14/2021 5:12 PM
[2021-02-14 17:32] LABS: Influenza A virus by PCR Negative (Neg); Influenza B virus by PCR Negative (Neg); RSV by PCR Negative (Neg); SARS CoV2 RNA(COVID-19) InHosp NEGATIVE (Negative)
[2021-02-14] MEDS ORDERED: SODIUM CHLORIDE 0.9% 1000ML 1,000 ML IV ONE (17:45)
--- NOTE | 2021-02-14 17:53 | History & Physical Report ---
Date of Service February 14, 2021 Assessment & Plan (1) Sepsis: (2) Metabolic encephalopathy: (3) Recurrent pneumonia: This is an 81yo F with a PMH of COPD with chronic respiratory failure requiring 2L O2 HS, bronchiectasis, suspected asthma, recurrent PNA since Covid in early November 2019, HTN, CKD, peripheral vascular disease, depression, memory loss/confusion, history of CVA, history of tobacco use and other medical problems listed below who presents with recurrent fevers over the past few weeks and was found to have sepsis likely 2/2 pulmonary source. Recurrent PNA since covid pneumonia in early November 2019 now presenting with intermittent fevers, malaise, confusion Outpatient sputum culture from January 23 growing pseudomonas, treated with 7 d course of Levaquin In ED, patient meeting sepsis criteria with temp of 37.7 degrees C, BP high 80s/40s improving with IVF, HR 112, O2 saturation 93% on room air. Initial lactic acid 2.2, procal 0.78 CXR with interval improvement in left basilar airspace opacities which could represent a chronic pneumonitis Ddx: bacterial PNA, pneumonitis 2/2 covid infection in November, DVT/PE or other infectious source Vancomycin and cefepime ordered for empiric antibiotic coverage. Urine, blood and sputum cultures pending Given 1.5 L of fluid with improved BP 95/51. Plan to continue maintenance fluids overnight. Repeating lactic acid CTA chest ordered to evaluate for PE (4) COPD (chronic obstructive pulmonary disease): (5) Bronchiectasis: Following with [facility] pulmonology at [facility] Continue neb treatment, flutter valve QID, mucinex Received 10mg IV Dexamethasone in ED. No acute hypoxia or wheezing on exam, so no indication for continued steroids at this time Supplemental O2 HS (6) CKD (chronic kidney disease), stage III: Kidney function at baseline. Monitor with daily BMP (7) HTN (hypertension): Hypotensive in setting of sepsis. Continue Lopressor with hold parameters (8) Depression: Continue sertraline (9) Dementia: Fall precautions, will need redirection Increased risk of delirium DVT Ppx: SQ Lovenox Code status: FULL PCP: Freddy Dispo: Admitted to PCU. Discharge planning ordered. Patient seen in collaboration with Dr. Rojas. Please see addendum. History of Present Illness Chief Complaint: confusion, intermittent fever Primary Care Provider: Raz Hayes MD This is an 81yo F with a PMH of COPD with chronic respiratory failure requiring 2L O2 HS, bronchiectasis, suspected asthma, recurrent PNA since Covid in early November 2019, HTN, CKD, peripheral vascular disease, depression, memory loss/confusion, history of CVA, history of tobacco use and other medical problems listed below who presents with recurrent fevers over the past few weeks. Was hospitalized with Covid pneumonia in late October-early November 2019. Since then, has had left lower lobe consolidation on CT chest it is unclear whether pneumonia versus atelectasis versus post Covid changes. Follows with Dr. Waldron and DAGO Larsen of [facility] pulmonology. Has been treated 4 times since July for recurrent pneumonia, per pulm notes. Sputum culture from 01/23 growing moderate Pseudomonas aeruginosa and completed 7 day Levaquin course on 02/03/20. Has continued to have intermittent low grade fevers around 99 F, with fever of 102 today. Also more confused and hoarse since yesterday, per daughter at bedside. Denies significant sputum production but has a "junky" cough. Also complaining of muscle aches since yesterday. Was forgetful when playing cards ealier today with daughter, which is highly unusual for her. Has been taking all medications managed by family and using neb treatments, flutter valve and mucinex. Only daytime O2 pulse ox value <90% was noted yesterday at 88% and supplemental O2 was placed. Denies headache, neck stiffness, chest pain, SOB, nausea, vomiting, abdominal pain, dysuria, hematuria, diarrhea or constipation. No significant appetite changes. In ED, patient with temperature of 37.7 degrees Celsius, hypotension of high 80s/40s, HR 112, O2 saturation 93% on room air. CXR with interval improvement in left basilar airspace opacities which could represent a chronic pneumonitis. No new focal lung consolidations identified. Initial lactic acid 2.2, procal 0.78. Allergies Allergy/AdvReac Type Severity Reaction Status Date / Time No Known Allergies Allergy Unverified 02/14/21 17:13 Home Medications Medication Instructions Recorded Confirmed Type ascorbic acid (vitamin C) [Vitamin 500 mg PO QAM 09/21/19 02/14/21 History C] metoprolol tartrate 25 mg PO BID 09/21/19 02/14/21 History multivitamin 1 tab PO QAM 09/21/19 02/14/21 History pravastatin 40 mg PO HS 09/21/19 02/14/21 History sertraline 50 mg PO QPM 09/21/19 02/14/21 History sertraline 100 mg PO QPM 09/21/19 02/14/21 History Advair HFA 2 puff INHALATION BID 11/01/20 02/14/21 History albuterol sulfate 2.5 mg INHALATION UD 11/01/20 02/14/21 History aspirin 81 mg PO DAILY 02/14/21 02/14/21 History cholecalciferol (vitamin D3) 50 mcg PO QAM 02/14/21 02/14/21 History [Vitamin D3] diclofenac sodium 1 ea TOPICAL QID PRN 02/14/21 02/14/21 History guaifenesin [Mucinex] 1,200 mg PO BID 02/14/21 02/14/21 History ipratropium-albuterol 3 ml INHALATION QID 02/14/21 02/14/21 History melatonin 2.5 mg PO HS PRN 02/14/21 02/14/21 History Past Med/Surg History Medical History AAA (abdominal aortic aneurysm) "s/p repair of ruptured AAA in 2010" CKD (chronic kidney disease), stage III COPD (chronic obstructive pulmonary disease) Depression Female stress incontinence H/O: CVA (cerebrovascular accident) Hip fracture History of pulmonary embolism HTN (hypertension) Hyperlipidemia Tobacco use disorder Surgical History S/P AAA repair "s/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 Desir with bifurcated graft, left femoral thromboendarterectomy with patch angioplasty, right femoral thromboendarterectomy, and right iliofemoral bypass" S/P laparotomy "10/16/11- abdominal exploration, wound vac placement; 10/18/11- abdominal washout and closure. " S/P ORIF (open reduction internal fixation) fracture "left hip" Family History Other Diabetes Heart disease Social History Smoking Status: Former smoker Tobacco Type: Cigarettes Cigarettes Per Day: 5; Smoking End Date: 2019; Hx Alcohol Use: Yes Hx Substance Use: No Preferred Language: Bulgarian Communication Ability: Effective Salon Professional Required: No Beliefs That Will Affect Care: None marital status: Current Living Situation: Family Other Information That Helps Us Care for You: No Feels Safe at Home: Yes Safety Concerns: Afraid for Self Assistive Devices: Cane, Denture - Upper, Glasses and Walker Review of Systems Review of Systems: At least ten systems reviewed and negative except as noted in the HPI. Physical Exam Physical Exam: General Appearance: WD/WN, vitals as above, NAD, sitting up in bed, pleasant, conversing easily Head: normocephalic, atraumatic Eyes: normal inspection, PERRL, conjunctivae normal, anicteric sclerae ENT: external ear and nose normal, dry oropharynx mucous membranes Neck: normal visual inspection, trachea midline, no thyromegaly Respiratory: normal respiratory effort, bibasilar rales L>R, no wheeze or rhonchi. No accessory muscle use Cardiovascular: regular rate, rhythm, no murmur appreciated, normal peripheral pulses, no BLE edema. Vessels: no JVD Chest: normal inspection of chest Abdomen/GI: normal bowel sounds, soft, nontender, no hepatosplenomegaly Extremities/Musculoskeletal: no cyanosis or clubbing, extremities motor strength 5/5 Neurologic: PERRL, EOMI, accommodation nl, no face palsy, no dysarthria, CN's II-XI intact bilaterally and moves all extremities Psychiatric: A+Ox person & place, euthymic affect Skin: no rashes, normal color, warm/dry Results & Data Results & Data ([facility]) Vital Signs (Past 12 Hours) Vital Signs Temp Pulse Resp BP Pulse Ox 02/14/21 16:30 102 H 19 89/50 L 93 02/14/21 16:20 109 H 25 H 02/14/21 16:10 107 H 20 94 02/14/21 16:00 106 H 22 94/56 L 94 02/14/21 15:50 107 H 19 94 02/14/21 15:40 106 H 24 93 02/14/21 15:35 108 H 17 94 02/14/21 15:30 108 H 20 119/71 93 02/14/21 15:21 37.7 C H 112 H 22 86/44 L 93 Laboratory Results Short CBC 02/14/21 Range/Units 16:17 WBC 12.37 H (4.8-10.8) K/uL Hgb 11.5 L (12.0-16.0) g/dL Hct 35.1 L (37-47) % Plt Count 117 L (130-400) K/uL BMP 02/14/21 16:17 Sodium 138 Potassium 4.1 Chloride 107 Carbon Dioxide 26 BUN 25 H Creatinine 1.14 Glucose 135 H Calcium 9.2 Cardiac Enzymes 02/14/21 Range/Units 16:17 Total Creatine Kinase 21 L (26-192) U/L Troponin I 0.023 (0-0.045) ng/ml Liver Function 02/14/21 Range/Units 16:17 Total Bilirubin 0.4 (0.2-1) mg/dl Direct Bilirubin < 0.1 (0-0.2) mg/dl AST 17 (15-37) U/L ALT 17 (12-78) U/L Alkaline Phosphatase 103 (45-117) U/L Albumin 3.0 L (3.4-5.0) gm/dl Urine 02/14/21 Range/Units 18:40 Urine Color Yellow Urine Appearance Clear (Clear) Urine pH 5.0 (4.5-7.5) Ur Specific [place] 1.020 (1.000-1.030) Urine Protein Negative (Negative) Urine Glucose (UA) Negative (Negative) Diagnostic Findings CXR: IMPRESSION: Interval improvement in left basilar airspace opacities which could represent a chronic pneumonitis. No new focal lung consolidations identified. Chest CTA: pending Supervising Physician Co-Signing Physician Notes I have seen and examined the patient and have discussed the case with the provider above. I agree with the assessment and plan as stated with the following exceptions. The patient is an 81 yo F post-covid pneumonia who presents with sepsis 2/2 acute bacterial pneumonia and metabolic encephalopathy. She is also found to have potentially a positive urine culture but denies nay UTI symptoms adamantly. Physical exam reveals a hypotensive elderly woman in no acute distress who is not toxic. She has generalized weakness and skin is warm and dry. Lung exam reveals coarse rhonchi, skin appears clear of overt wounds, abdominal exam benign, no CVA tenderness, normal neck flexion without issue, heart exam normal. Workup reveals evidence of pneumonia on chest CT and possible UA on urine culture. Cont Vanc/Cefepime. Cont fluids, trend lactate. DO Bob (1) Depression Active/Remission status: remission status unspecified Depression Type: major depressive disorder Major depression recurrence: unspecified whether recurrent Qualified Code(s): F32.9 - Major depressive disorder, single episode, unspecified (2) COPD (chronic obstructive pulmonary disease) COPD type: unspecified COPD Qualified Code(s): J44.9 - Chronic obstructive pulmonary disease, unspecified (3) HTN (hypertension) Hypertension type: essential hypertension Qualified Code(s): I10 - Essential (primary) hypertension
[2021-02-14 18:58] LABS: Appearance Urine Clear (Clear); Bilirubin Urine Negative (Negative); Blood Urine 2+ (Negative); Color Urine Yellow; Epithelial Cell Urine Auto 0-5 /lpf (0-5); Glucose Urine UA Negative (Negative); Ketones Urine Trace (Negative); Leukocyte Esterase Urine 2+ (Negative); Nitrite Urine Negative (Negative); Protein Urine Negative (Negative); Urobilinogen Urine Negative (Negative)
[2021-02-14 19:17] LABS: Bacteria Urine Automated 1+ (Negative)
[2021-02-14] MEDS ORDERED: OPTIRAY 320 125ml IV ONE (20:31)
--- NOTE | 2021-02-14 21:02 | CT Scan Report ---
CHEST CTA for PULMONARY ARTERIES CT DOSE: 264.29 mGy.cm HISTORY: Shortness of breath/fever, r/o PE TECHNIQUE: Multiaxial CT images of the chest were performed following the intravenous administration of contrast to evaluate the pulmonary arteries. Maximal intensity projection images were also obtaine d. A dose lowering technique was utilized adhering to the principles of ALARA. COMPARISON STUDY: Chest CTA 11/01/2020. FINDINGS: The heart is borderline enlarged. No pleural or pericardial effusions. Moderate calcified a nd noncalcified plaque within the descending thoracic aorta. No change in the 3.8 cm aneurysm at the junction of the thoracoabdominal aorta. No evidence for an aortic dissection. No filling defects with in the pulmonary arteries to suggest pulmonary embolus. Limited views of the upper abdomen demonstrat e no hepatic or splenic masses. There is a lobular contour to the left hepatic lobe, unchanged. Mild circumferential thickening of the esophagus is also unchanged. No mediastinal or hilar lymphadenopath y. Multiple old bilateral rib fractures. Mild bronchial wall thickening. There are a few partially op acified distal bilateral lower lobe bronchi. No pneumothorax. Moderate emphysema. Multiple nodular an d irregular airspace opacities seen within the left lower lobe. This is new from the prior study and likely represents a pneumonia. A few additional faint groundglass airspace opacities are seen within the right lung and left upper lobe have slightly improved. Stable subcentimeter pulmonary nodules. IMPRESSION: 1. No evidence for pulmonary embolus. 2. No change in the 3.8 cm aneurysm at the thoracoabdominal aorta. No evidence for an aortic dissecti on. 3. Multiple new nodular and irregular airspace opacities within the left lower lobe. This favors a pn eumonia. A 2-[address] follow-up recommended to ensure resolution. 4. Emphysema. 5. Scattered groundglass densities in the prior study have slightly improved. 6. Stable subcentimeter pulmonary nodules. ACT 112: Negative or not required by law. Electronically signed by: Leander Collier M.D. 02/14/2021 9:01 PM
[2021-02-14] MEDS ORDERED: SODIUM CHLORIDE 0.9% 1000ML 1,000 ML IV SCH (21:09)
[2021-02-14] MEDS ORDERED: ONDANSETRON INJ 2 MG/ML 2 ML VIAL IV PRN (21:09)
[2021-02-14] MEDS ORDERED: POLYETHYLENE (MIRALAX) 17 GM PACK PO PRN (21:09)
[2021-02-14] MEDS ORDERED: ALBUTEROL 0.083% NEBU SOLN 3 ML VIAL INH SCH (21:09)
[2021-02-14] MEDS ORDERED: ACETAMINOPHEN 325 MG TAB PO PRN (21:09)
[2021-02-14] MEDS ORDERED: CEFEPIME CONSULT ACTIVE PRN (21:27)
[2021-02-14] MEDS ORDERED: CEFEPIME 2,000 MG in SYRINGE 0 ML IV ONE (22:00)
[2021-02-14] MEDS: SERTRALINE HCL 50 MG TABLET PO SCH (22:02)
[2021-02-14] MEDS: guaiFENesin 600 MG TABCR PO SCH (22:03)
[2021-02-14] MEDS: PRAVASTATIN SOD 40 MG TAB PO SCH (22:03)
[2021-02-14] MEDS: SERTRALINE HCL 100 MG TABLET PO SCH (22:03)
[2021-02-14] MEDS: METOPROLOL TARTRATE 25 MG TAB PO SCH (22:03)
[2021-02-14] MEDS: ENOXAPARIN INJ 30 MG/0.3 ML SYR SQ SCH (22:04)
[2021-02-15] MEDS ORDERED: SODIUM CHLORIDE 0.9% 1000ML 1,000 ML IV ONE (01:37)
[2021-02-15] MEDS ORDERED: LACTATED RINGER'S 1,000 ML IV ONE (03:24)
[2021-02-15] MEDS: LACTATED RINGER'S 1,000 ML IV SCH ×2 (05:28→10:12)
[2021-02-15 06:51] LABS: Hematocrit (blood only) 32.4 % (37-47); Hemoglobin 10.6 g/dL (12.0-16.0); Mean Corpuscular Hemoglobin 29.4 pg (25-34); Mean Corpuscular Hgb Conc 32.7 g/dL (32-36); RDW Coefficient of Variation 14.7 % (11.5-14.5); RDW Standard Deviation 48.9 fL (36.4-46.3); White Blood Count 8.77 K/uL (4.8-10.8)
[2021-02-15 07:26] LABS: BUN Creatinine Ratio 24.4 (10-20); Calcium 8.4 mg/dl (8.5-10.1); Est GFR (African American) 65.5; Est GFR (Non-African American) 56.5; Magnesium 2.1 mg/dl (1.8-2.4); Potassium 4.2 mmol/L (3.5-5.1)
[2021-02-15 07:27] LABS: Mean Platelet Volume 9.2 fL (7.4-10.4); Platelet Count 99 K/uL (130-400); Platelet Estimate Decreased (Normal)
[2021-02-15] MEDS: MULTIVITAMIN TAB PO SCH (08:16)
[2021-02-15] MEDS: FLUTICASONE/VILANTEROL 100/25MCG 14 PUFFS/INHALER INH SCH (08:16)
[2021-02-15] MEDS: METOPROLOL TARTRATE 25 MG TAB PO SCH ×2 (08:16→20:37)
[2021-02-15] MEDS: ALBUT/IPRATROP 3MG/0.5MG NEB 3 ML VIAL INH SCH ×4 (08:17→20:17)
[2021-02-15] MEDS: guaiFENesin 600 MG TABCR PO SCH ×2 (08:17→20:37)
[2021-02-15] MEDS: CHOLECALCIFEROL 1,000 UNITS 25 MCG TAB PO SCH (08:17)
[2021-02-15] MEDS: ASPIRIN 81 MG ECTAB PO SCH (08:18)
[2021-02-15] MEDS: ASCORBIC ACID 500 MG TAB PO SCH (08:19)
--- NOTE | 2021-02-15 09:09 | Hospitalist Progress Note ---
Date of Service February 15, 2021 Assessment & Plan (1) Sepsis: (2) Metabolic encephalopathy: (3) Recurrent pneumonia: This is an 81yo F with a PMH of COPD with chronic respiratory failure requiring 2L O2 HS, bronchiectasis, suspected asthma, recurrent PNA since Covid in early November 2019, HTN, CKD, peripheral vascular disease, depression, memory loss/confusion, history of CVA, history of tobacco use and other medical problems listed below who presents with recurrent fevers over the past few weeks and was found to have sepsis likely 2/2 pulmonary source. Recurrent PNA since covid pneumonia in early November 2019 now presenting with intermittent fevers, malaise, confusion Outpatient sputum culture from January 23 growing pseudomonas, treated with 7 d course of Levaquin In ED, patient meeting sepsis criteria with temp of 37.7 degrees C, BP high 80s/40s improving with IVF, HR 112, O2 saturation 93% on room air. Initial lactic acid 2.2, procal 0.78 CXR with interval improvement in left basilar airspace opacities which could represent a chronic pneumonitis Ddx: bacterial PNA, pneumonitis 2/2 covid infection in November, DVT/PE or other infectious source Vancomycin and cefepime ordered for empiric antibiotic coverage. Urine, blood and sputum cultures pending Given 1.5 L of fluid with improved BP 95/51. Plan to continue maintenance fluids overnight. Repeating lactic acid CTA chest ordered to evaluate for PE 1. No evidence for pulmonary embolus. 2. No change in the 3.8 cm aneurysm at the thoracoabdominal aorta. No evidence for an aortic dissection. 3. Multiple new nodular and irregular airspace opacities within the left lower lobe. This favors a pneumonia. A 2-[address] follow-up recommended to ensure resolution. 4. Emphysema. 5. Scattered groundglass densities in the prior study have slightly improved. 6. Stable subcentimeter pulmonary nodules. (4) COPD (chronic obstructive pulmonary disease): (5) Bronchiectasis: Following with [facility] pulmonology at [facility] Continue neb treatment, flutter valve QID, mucinex Received 10mg IV Dexamethasone in ED. No acute hypoxia or wheezing on exam, so no indication for continued steroids at this time Supplemental O2 HS (6) CKD (chronic kidney disease), stage III: Kidney function at baseline. Monitor with daily BMP (7) HTN (hypertension): Hypotensive in setting of sepsis. Continue Lopressor with hold parameters Current BP improved (8) Depression: Continue sertraline (9) Dementia: Fall precautions, will need redirection Increased risk of delirium DVT Ppx: SQ Lovenox Code status: FULL PCP: Freddy Dispo: Admitted to PCU. Discharge planning ordered. Admission and Anticipated Discharge Date Admission Date: February 14, 2021 Subjective Pt seen in follow up of PNA, fever, hypotension Currently sitting in chair, in NAD Daughter at the bedside Pt currently has no complaints, says "she is bored" Has productive cough and difficulty coughing up sputum Review of Systems Review of Systems: All systems reviewed & are unremarkable except as noted in HPI & below Constitutional: no fever and no chills Respiratory: + cough (productive) Cardiovascular: no chest pain and no palpitations Gastrointestinal: no abdominal pain, no nausea and no vomiting Physical Exam Physical Exam: General Appearance: WD/WN, vitals as above, NAD, sitting up in bed, pleasant, conversing easily Head: normocephalic, atraumatic Eyes: normal inspection, EOMI, PERRL, conjunctivae normal, anicteric sclerae ENT: external ear and nose normal, dry oropharynx mucous membranes Neck: normal visual inspection, trachea midline, no thyromegaly Respiratory: normal respiratory effort, mild bibasilar rales L>R, no wheeze or rhonchi. No accessory muscle use Cardiovascular: regular rate, rhythm, no murmur appreciated, normal peripheral pulses, no BLE edema. Vessels: no JVD Chest: normal inspection of chest Abdomen/GI: normal bowel sounds, soft, nontender Extremities/Musculoskeletal: no cyanosis or clubbing, extremities motor strength 5/5 Neurologic: PERRL, EOMI, no face palsy, no dysarthria, CN's II-XI intact bilaterally and moves all extremities Psychiatric: A+Ox person & place, euthymic affect Skin: no rashes, normal color, warm/dry Results & Data Results & Data ([facility]) Vital Signs (Past 12 Hours) Vital Signs Temp Pulse Pulse Resp BP Pulse Ox 02/15/21 08:18 84 16 93 02/15/21 07:53 37 C 88 18 105/67 93 02/15/21 04:00 36.6 C 89 18 92/56 L 94 02/15/21 00:04 36.8 C 83 20 107/66 93 02/15/21 00:00 91 H 02/14/21 21:53 83 20 93 02/14/21 21:22 93 H Laboratory Results 02/15/21 02/15/21 02/15/21 Range/Units 06:37 06:37 06:37 WBC (4.8-10.8) K/uL RBC (4.2-5.4) M/uL Hgb (12.0-16.0) g/dL Hct (37-47) % MCV (80-100) fL MCH (25-34) pg MCHC (32-36) g/dL RDW Std Deviation (36.4-46.3) fL RDW Coeff of Wayne (11.5-14.5) % Plt Count (130-400) K/uL MPV (7.4-10.4) fL Immature Gran % (Auto) % Neut % (Auto) % Lymph % (Auto) % Larue % (Auto) % Eos % (Auto) % Baso % (Auto) % Neut # (Auto) (1.4-6.5) K/uL Lymph # (Auto) (1.2-3.4) K/uL Larue # (Auto) (0.11-0.59) K/uL Eos # (Auto) (0-0.5) K/uL Baso # (Auto) (0-0.2) K/uL Immature Gran # (Auto) (0.00-0.02) K/uL Platelet Estimate (Normal) PT (9.0-12.0) Seconds INR (0.9-1.1) APTT (21.0-31.0) Seconds PTT Ratio VBG pH (7.36-7.41) VBG pCO2 (38-50) mmHg VBG pO2 mmHg VBG HCO3 mmol/L VBG O2 Saturation % VBG Base Excess mEq/L Barometric Pressure mm/Hg Sodium 142 (136-145) mmol/L Potassium 4.2 (3.5-5.1) mmol/L Chloride 113 H (98-107) mmol/L Carbon Dioxide 26 (21-32) mmol/L Anion Gap 3.0 (3-11) BUN 23 H (7-18) mg/dl Creatinine 0.94 (0.6-1.2) mg/dl Est Cr Clr Drug Dosing 42.0 ml/min Est GFR ( Amer) 65.5 Est GFR (Non-Af Amer) 56.5 BUN/Creatinine Ratio 24.4 H (10-20) Glucose 113 H (70-99) mg/dl Lactate 1.0 (0.4-2.0) mmol/L Calcium 8.4 L (8.5-10.1) mg/dl Phosphorus 3.0 (2.5-4.9) mg/dl Magnesium 2.1 (1.8-2.4) mg/dl Total Bilirubin (0.2-1) mg/dl Direct Bilirubin (0-0.2) mg/dl AST (15-37) U/L ALT (12-78) U/L Alkaline Phosphatase (45-117) U/L Total Creatine Kinase (26-192) U/L Troponin I (0-0.045) ng/ml NT-Pro-B Natriuret Pep (0-1800) pg/ml Total Protein (6.4-8.2) gm/dl Albumin (3.4-5.0) gm/dl Globulin (2.5-4.0) gm/dl Albumin/Globulin Ratio (0.9-2) Lipase (73-393) U/L Procalcitonin 1.08 H (0-0.5) ng/ml Urine Color Urine Appearance (Clear) Urine pH (4.5-7.5) Ur Specific Isabel (1.000-1.030) Urine Protein (Negative) Urine Glucose (UA) (Negative) Urine Ketones (Negative) Urine Blood (Negative) Urine Nitrite (Negative) Urine Bilirubin (Negative) Urine Urobilinogen (Negative) Ur Leukocyte Esterase (Negative) Urine WBC (Auto) (0-5) /hpf Urine RBC (Auto) (0-4) /hpf U Hyaline Cast (Auto) (0-5) /lpf U Epithel Cells (Auto) (0-5) /lpf Urine Bacteria (Auto) (Negative) Urine Yeast COVID-19 Eval Order SARS-CoV-2 (PCR) (Negative) Influenza Type A (PCR) (Neg) Influenza Type B (PCR) (Neg) RSV (RT-PCR) (Neg) 02/15/21 02/15/21 02/15/21 Range/Units 06:37 01:38 00:33 WBC 8.77 (4.8-10.8) K/uL RBC 3.60 L (4.2-5.4) M/uL Hgb 10.6 L (12.0-16.0) g/dL Hct 32.4 L (37-47) % MCV 90.0 (80-100) fL MCH 29.4 (25-34) pg MCHC 32.7 (32-36) g/dL RDW Std Deviation 48.9 H (36.4-46.3) fL RDW Coeff of Wayne 14.7 H (11.5-14.5) % Plt Count 99 L (130-400) K/uL MPV 9.2 (7.4-10.4) fL Immature Gran % (Auto) % Neut % (Auto) % Lymph % (Auto) % Larue % (Auto) % Eos % (Auto) % Baso % (Auto) % Neut # (Auto) (1.4-6.5) K/uL Lymph # (Auto) (1.2-3.4) K/uL Larue # (Auto) (0.11-0.59) K/uL Eos # (Auto) (0-0.5) K/uL Baso # (Auto) (0-0.2) K/uL Immature Gran # (Auto) (0.00-0.02) K/uL Platelet Estimate Decreased L (Normal) PT (9.0-12.0) Seconds INR (0.9-1.1) APTT (21.0-31.0) Seconds PTT Ratio VBG pH (7.36-7.41) VBG pCO2 (38-50) mmHg VBG pO2 mmHg VBG HCO3 mmol/L VBG O2 Saturation % VBG Base Excess mEq/L Barometric Pressure mm/Hg Sodium (136-145) mmol/L Potassium (3.5-5.1) mmol/L Chloride (98-107) mmol/L Carbon Dioxide (21-32) mmol/L Anion Gap (3-11) BUN (7-18) mg/dl Creatinine (0.6-1.2) mg/dl Est Cr Clr Drug Dosing ml/min Est GFR ( Amer) Est GFR (Non-Af Amer) BUN/Creatinine Ratio (10-20) Glucose (70-99) mg/dl Lactate 2.4 H* 2.2 H* (0.4-2.0) mmol/L Calcium (8.5-10.1) mg/dl Phosphorus (2.5-4.9) mg/dl Magnesium (1.8-2.4) mg/dl Total Bilirubin (0.2-1) mg/dl Direct Bilirubin (0-0.2) mg/dl AST (15-37) U/L ALT (12-78) U/L Alkaline Phosphatase (45-117) U/L Total Creatine Kinase (26-192) U/L Troponin I (0-0.045) ng/ml NT-Pro-B Natriuret Pep (0-1800) pg/ml Total Protein (6.4-8.2) gm/dl Albumin (3.4-5.0) gm/dl Globulin (2.5-4.0) gm/dl Albumin/Globulin Ratio (0.9-2) Lipase (73-393) U/L Procalcitonin (0-0.5) ng/ml Urine Color Urine Appearance (Clear) Urine pH (4.5-7.5) Ur Specific Isabel (1.000-1.030) Urine Protein (Negative) Urine Glucose (UA) (Negative) Urine Ketones (Negative) Urine Blood (Negative) Urine Nitrite (Negative) Urine Bilirubin (Negative) Urine Urobilinogen (Negative) Ur Leukocyte Esterase (Negative) Urine WBC (Auto) (0-5) /hpf Urine RBC (Auto) (0-4) /hpf U Hyaline Cast (Auto) (0-5) /lpf U Epithel Cells (Auto) (0-5) /lpf Urine Bacteria (Auto) (Negative) Urine Yeast COVID-19 Eval Order SARS-CoV-2 (PCR) (Negative) Influenza Type A (PCR) (Neg) Influenza Type B (PCR) (Neg) RSV (RT-PCR) (Neg) 02/14/21 02/14/21 02/14/21 Range/Units 23:16 21:18 18:40 WBC (4.8-10.8) K/uL RBC (4.2-5.4) M/uL Hgb (12.0-16.0) g/dL Hct (37-47) % MCV (80-100) fL MCH (25-34) pg MCHC (32-36) g/dL RDW Std Deviation (36.4-46.3) fL RDW Coeff of Wayne (11.5-14.5) % Plt Count (130-400) K/uL MPV (7.4-10.4) fL Immature Gran % (Auto) % Neut % (Auto) % Lymph % (Auto) % Larue % (Auto) % Eos % (Auto) % Baso % (Auto) % Neut # (Auto) (1.4-6.5) K/uL Lymph # (Auto) (1.2-3.4) K/uL Larue # (Auto) (0.11-0.59) K/uL Eos # (Auto) (0-0.5) K/uL Baso # (Auto) (0-0.2) K/uL Immature Gran # (Auto) (0.00-0.02) K/uL Platelet Estimate (Normal) PT (9.0-12.0) Seconds INR (0.9-1.1) APTT (21.0-31.0) Seconds PTT Ratio VBG pH (7.36-7.41) VBG pCO2 (38-50) mmHg VBG pO2 mmHg VBG HCO3 mmol/L VBG O2 Saturation % VBG Base Excess mEq/L Barometric Pressure mm/Hg Sodium (136-145) mmol/L Potassium (3.5-5.1) mmol/L Chloride (98-107) mmol/L Carbon Dioxide (21-32) mmol/L Anion Gap (3-11) BUN (7-18) mg/dl Creatinine (0.6-1.2) mg/dl Est Cr Clr Drug Dosing ml/min Est GFR ( Amer) Est GFR (Non-Af Amer) BUN/Creatinine Ratio (10-20) Glucose (70-99) mg/dl Lactate 1.5 2.1 H* (0.4-2.0) mmol/L Calcium (8.5-10.1) mg/dl Phosphorus (2.5-4.9) mg/dl Magnesium (1.8-2.4) mg/dl Total Bilirubin (0.2-1) mg/dl Direct Bilirubin (0-0.2) mg/dl AST (15-37) U/L ALT (12-78) U/L Alkaline Phosphatase (45-117) U/L Total Creatine Kinase (26-192) U/L Troponin I (0-0.045) ng/ml NT-Pro-B Natriuret Pep (0-1800) pg/ml Total Protein (6.4-8.2) gm/dl Albumin (3.4-5.0) gm/dl Globulin (2.5-4.0) gm/dl Albumin/Globulin Ratio (0.9-2) Lipase (73-393) U/L Procalcitonin (0-0.5) ng/ml Urine Color Yellow Urine Appearance Clear (Clear) Urine pH 5.0 (4.5-7.5) Ur Specific Isabel 1.020 (1.000-1.030) Urine Protein Negative (Negative) Urine Glucose (UA) Negative (Negative) Urine Ketones Trace H (Negative) Urine Blood 2+ H (Negative) Urine Nitrite Negative (Negative) Urine Bilirubin Negative (Negative) Urine Urobilinogen Negative (Negative) Ur Leukocyte Esterase 2+ H (Negative) Urine WBC (Auto) 5-10 H (0-5) /hpf Urine RBC (Auto) 5-10 H (0-4) /hpf U Hyaline Cast (Auto) 1-5 (0-5) /lpf U Epithel Cells (Auto) 0-5 (0-5) /lpf Urine Bacteria (Auto) 1+ H (Negative) Urine Yeast Not Reportable COVID-19 Eval Order SARS-CoV-2 (PCR) (Negative) Influenza Type A (PCR) (Neg) Influenza Type B (PCR) (Neg) RSV (RT-PCR) (Neg) 02/14/21 02/14/21 02/14/21 Range/Units 18:30 16:39 16:39 WBC (4.8-10.8) K/uL RBC (4.2-5.4) M/uL Hgb (12.0-16.0) g/dL Hct (37-47) % MCV (80-100) fL MCH (25-34) pg MCHC (32-36) g/dL RDW Std Deviation (36.4-46.3) fL RDW Coeff of Wayne (11.5-14.5) % Plt Count (130-400) K/uL MPV (7.4-10.4) fL Immature Gran % (Auto) % Neut % (Auto) % Lymph % (Auto) % Larue % (Auto) % Eos % (Auto) % Baso % (Auto) % Neut # (Auto) (1.4-6.5) K/uL Lymph # (Auto) (1.2-3.4) K/uL Larue # (Auto) (0.11-0.59) K/uL Eos # (Auto) (0-0.5) K/uL Baso # (Auto) (0-0.2) K/uL Immature Gran # (Auto) (0.00-0.02) K/uL Platelet Estimate (Normal) PT (9.0-12.0) Seconds INR (0.9-1.1) APTT (21.0-31.0) Seconds PTT Ratio VBG pH 7.37 (7.36-7.41) VBG pCO2 46 (38-50) mmHg VBG pO2 25 mmHg VBG HCO3 26 mmol/L VBG O2 Saturation < 60.0 % VBG Base Excess 0.4 mEq/L Barometric Pressure 735.1 mm/Hg Sodium (136-145) mmol/L Potassium (3.5-5.1) mmol/L Chloride (98-107) mmol/L Carbon Dioxide (21-32) mmol/L Anion Gap (3-11) BUN (7-18) mg/dl Creatinine (0.6-1.2) mg/dl Est Cr Clr Drug Dosing ml/min Est GFR ( Amer) Est GFR (Non-Af Amer) BUN/Creatinine Ratio (10-20) Glucose (70-99) mg/dl Lactate 2.1 H* 2.2 H* (0.4-2.0) mmol/L Calcium (8.5-10.1) mg/dl Phosphorus (2.5-4.9) mg/dl Magnesium (1.8-2.4) mg/dl Total Bilirubin (0.2-1) mg/dl Direct Bilirubin (0-0.2) mg/dl AST (15-37) U/L ALT (12-78) U/L Alkaline Phosphatase (45-117) U/L Total Creatine Kinase (26-192) U/L Troponin I (0-0.045) ng/ml NT-Pro-B Natriuret Pep (0-1800) pg/ml Total Protein (6.4-8.2) gm/dl Albumin (3.4-5.0) gm/dl Globulin (2.5-4.0) gm/dl Albumin/Globulin Ratio (0.9-2) Lipase (73-393) U/L Procalcitonin (0-0.5) ng/ml Urine Color Urine Appearance (Clear) Urine pH (4.5-7.5) Ur Specific Isabel (1.000-1.030) Urine Protein (Negative) Urine Glucose (UA) (Negative) Urine Ketones (Negative) Urine Blood (Negative) Urine Nitrite (Negative) Urine Bilirubin (Negative) Urine Urobilinogen (Negative) Ur Leukocyte Esterase (Negative) Urine WBC (Auto) (0-5) /hpf Urine RBC (Auto) (0-4) /hpf U Hyaline Cast (Auto) (0-5) /lpf U Epithel Cells (Auto) (0-5) /lpf Urine Bacteria (Auto) (Negative) Urine Yeast COVID-19 Eval Order SARS-CoV-2 (PCR) (Negative) Influenza Type A (PCR) (Neg) Influenza Type B (PCR) (Neg) RSV (RT-PCR) (Neg) 02/14/21 02/14/21 02/14/21 Range/Units 16:20 16:20 16:17 WBC (4.8-10.8) K/uL RBC (4.2-5.4) M/uL Hgb (12.0-16.0) g/dL Hct (37-47) % MCV (80-100) fL MCH (25-34) pg MCHC (32-36) g/dL RDW Std Deviation (36.4-46.3) fL RDW Coeff of Wayne (11.5-14.5) % Plt Count (130-400) K/uL MPV (7.4-10.4) fL Immature Gran % (Auto) % Neut % (Auto) % Lymph % (Auto) % Larue % (Auto) % Eos % (Auto) % Baso % (Auto) % Neut # (Auto) (1.4-6.5) K/uL Lymph # (Auto) (1.2-3.4) K/uL Larue # (Auto) (0.11-0.59) K/uL Eos # (Auto) (0-0.5) K/uL Baso # (Auto) (0-0.2) K/uL Immature Gran # (Auto) (0.00-0.02) K/uL Platelet Estimate (Normal) PT (9.0-12.0) Seconds INR (0.9-1.1) APTT (21.0-31.0) Seconds PTT Ratio VBG pH (7.36-7.41) VBG pCO2 (38-50) mmHg VBG pO2 mmHg VBG HCO3 mmol/L VBG O2 Saturation % VBG Base Excess mEq/L Barometric Pressure mm/Hg Sodium (136-145) mmol/L Potassium (3.5-5.1) mmol/L Chloride (98-107) mmol/L Carbon Dioxide (21-32) mmol/L Anion Gap (3-11) BUN (7-18) mg/dl Creatinine (0.6-1.2) mg/dl Est Cr Clr Drug Dosing ml/min Est GFR ( Amer) Est GFR (Non-Af Amer) BUN/Creatinine Ratio (10-20) Glucose (70-99) mg/dl Lactate (0.4-2.0) mmol/L Calcium (8.5-10.1) mg/dl Phosphorus (2.5-4.9) mg/dl Magnesium (1.8-2.4) mg/dl Total Bilirubin (0.2-1) mg/dl Direct Bilirubin (0-0.2) mg/dl AST (15-37) U/L ALT (12-78) U/L Alkaline Phosphatase (45-117) U/L Total Creatine Kinase (26-192) U/L Troponin I (0-0.045) ng/ml NT-Pro-B Natriuret Pep (0-1800) pg/ml Total Protein (6.4-8.2) gm/dl Albumin (3.4-5.0) gm/dl Globulin (2.5-4.0) gm/dl Albumin/Globulin Ratio (0.9-2) Lipase (73-393) U/L Procalcitonin 0.78 H (0-0.5) ng/ml Urine Color Urine Appearance (Clear) Urine pH (4.5-7.5) Ur Specific Isabel (1.000-1.030) Urine Protein (Negative) Urine Glucose (UA) (Negative) Urine Ketones (Negative) Urine Blood (Negative) Urine Nitrite (Negative) Urine Bilirubin (Negative) Urine Urobilinogen (Negative) Ur Leukocyte Esterase (Negative) Urine WBC (Auto) (0-5) /hpf Urine RBC (Auto) (0-4) /hpf U Hyaline Cast (Auto) (0-5) /lpf U Epithel Cells (Auto) (0-5) /lpf Urine Bacteria (Auto) (Negative) Urine Yeast COVID-19 Eval Order CovFluRsv at [facility] SARS-CoV-2 (PCR) NEGATIVE (Negative) Influenza Type A (PCR) Negative (Neg) Influenza Type B (PCR) Negative (Neg) RSV (RT-PCR) Negative (Neg) 02/14/21 02/14/21 02/14/21 Range/Units 16:17 16:17 16:17 WBC 12.37 H (4.8-10.8) K/uL RBC 3.89 L (4.2-5.4) M/uL Hgb 11.5 L (12.0-16.0) g/dL Hct 35.1 L (37-47) % MCV 90.2 (80-100) fL MCH 29.6 (25-34) pg MCHC 32.8 (32-36) g/dL RDW Std Deviation 49.2 H (36.4-46.3) fL RDW Coeff of Wayne 14.8 H (11.5-14.5) % Plt Count 117 L (130-400) K/uL MPV 9.7 (7.4-10.4) fL Immature Gran % (Auto) 0.2 % Neut % (Auto) 92.8 % Lymph % (Auto) 2.6 % Larue % (Auto) 3.5 % Eos % (Auto) 0.8 % Baso % (Auto) 0.1 % Neut # (Auto) 11.49 H (1.4-6.5) K/uL Lymph # (Auto) 0.32 L (1.2-3.4) K/uL Larue # (Auto) 0.43 (0.11-0.59) K/uL Eos # (Auto) 0.10 (0-0.5) K/uL Baso # (Auto) 0.01 (0-0.2) K/uL Immature Gran # (Auto) 0.02 (0.00-0.02) K/uL Platelet Estimate (Normal) PT 10.7 (9.0-12.0) Seconds INR 1.1 (0.9-1.1) APTT 22.4 (21.0-31.0) Seconds PTT Ratio 0.9 VBG pH (7.36-7.41) VBG pCO2 (38-50) mmHg VBG pO2 mmHg VBG HCO3 mmol/L VBG O2 Saturation % VBG Base Excess mEq/L Barometric Pressure mm/Hg Sodium 138 (136-145) mmol/L Potassium 4.1 (3.5-5.1) mmol/L Chloride 107 (98-107) mmol/L Carbon Dioxide 26 (21-32) mmol/L Anion Gap 5.0 (3-11) BUN 25 H (7-18) mg/dl Creatinine 1.14 (0.6-1.2) mg/dl Est Cr Clr Drug Dosing 33.9 ml/min Est GFR ( Amer) 51.9 Est GFR (Non-Af Amer) 44.7 BUN/Creatinine Ratio 21.6 H (10-20) Glucose 135 H (70-99) mg/dl Lactate (0.4-2.0) mmol/L Calcium 9.2 (8.5-10.1) mg/dl Phosphorus 2.8 (2.5-4.9) mg/dl Magnesium 2.0 (1.8-2.4) mg/dl Total Bilirubin 0.4 (0.2-1) mg/dl Direct Bilirubin < 0.1 (0-0.2) mg/dl AST 17 (15-37) U/L ALT 17 (12-78) U/L Alkaline Phosphatase 103 (45-117) U/L Total Creatine Kinase 21 L (26-192) U/L Troponin I 0.023 (0-0.045) ng/ml NT-Pro-B Natriuret Pep 2888 H (0-1800) pg/ml Total Protein 6.9 (6.4-8.2) gm/dl Albumin 3.0 L (3.4-5.0) gm/dl Globulin 3.9 (2.5-4.0) gm/dl Albumin/Globulin Ratio 0.8 L (0.9-2) Lipase 39 L (73-393) U/L Procalcitonin (0-0.5) ng/ml Urine Color Urine Appearance (Clear) Urine pH (4.5-7.5) Ur Specific Isabel (1.000-1.030) Urine Protein (Negative) Urine Glucose (UA) (Negative) Urine Ketones (Negative) Urine Blood (Negative) Urine Nitrite (Negative) Urine Bilirubin (Negative) Urine Urobilinogen (Negative) Ur Leukocyte Esterase (Negative) Urine WBC (Auto) (0-5) /hpf Urine RBC (Auto) (0-4) /hpf U Hyaline Cast (Auto) (0-5) /lpf U Epithel Cells (Auto) (0-5) /lpf Urine Bacteria (Auto) (Negative) Urine Yeast COVID-19 Eval Order SARS-CoV-2 (PCR) (Negative) Influenza Type A (PCR) (Neg) Influenza Type B (PCR) (Neg) RSV (RT-PCR) (Neg) Medications Administered Current Inpatient Medications Acetaminophen (Acetaminophen 325 Mg Tab) 650 mg PO Q4H PRN PRN Reason: Pain or Fever Stop: 03/16/21 21:08 Albuterol (Albut/Ipratrop 3mg/0.5mg Neb 3 Ml Vial) 3 ml INH QIDR [facility] Stop: 03/17/21 06:59 Last Admin: 02/15/21 08:17 Dose: 3 ml Documented by: Ascorbic Acid (Ascorbic Acid 500 Mg Tab) 500 mg PO QAM [facility] Stop: 03/17/21 08:59 Last Admin: 02/15/21 08:19 Dose: 500 mg Documented by: Aspirin (Aspirin 81 Mg Ectab) 81 mg PO DAILY [facility] Stop: 03/17/21 08:59 Last Admin: 02/15/21 08:18 Dose: 81 mg Documented by: Enoxaparin Sodium (Enoxaparin Inj 30 Mg/0.3 Ml Syr) 30 mg SQ Q24H [facility] Stop: 03/16/21 21:59 Last Admin: 02/14/21 22:04 Dose: 30 mg Documented by: Fluticasone/Vilanterol (Fluticasone/Vilanterol 100/25mcg 14 Puffs/Inhaler) 1 puffs INH DAILY [facility] Stop: 03/17/21 08:59 Last Admin: 02/15/21 08:16 Dose: 1 puffs Documented by: Guaifenesin (Guaifenesin 600 Mg Tabcr) 1,200 mg PO BID [facility] Stop: 03/16/21 21:08 Last Admin: 02/15/21 08:17 Dose: 1,200 mg Documented by: Vancomycin HCl 1,000 mg/ (Sodium Chloride) 270 mls @ 200 mls/hr IV Q24H [facility] Stop: 02/22/21 15:59 Cefepime HCl 2,000 mg/ Syringe 20 mls @ 5 mls/min IV Q12H [facility]; Protocol Stop: 02/22/21 09:59 Lactated Ringer's (Lr) 1,000 mls @ 100 mls/hr IV .Q10H [facility] Stop: 03/17/21 05:29 Last Admin: 02/15/21 05:28 Dose: 100 mls/hr Documented by: Metoprolol Tartrate (Metoprolol Tartrate 25 Mg Tab) 25 mg PO BID [facility] Stop: 03/16/21 21:08 Last Admin: 02/15/21 08:16 Dose: 25 mg Documented by: Miscellaneous Information (Vancomycin Consult Active) 1 ea N/A UD PRN PRN Reason: Consult Stop: 03/16/21 16:46 Miscellaneous Information (Cefepime Consult Active) 1 ea N/A UD PRN PRN Reason: Consult Stop: 03/16/21 21:26 Multivitamins (Multivitamin Tab) 1 tab PO QAM [facility] Stop: 03/17/21 08:59 Last Admin: 02/15/21 08:16 Dose: 1 tab Documented by: Ondansetron HCl (Ondansetron Inj 2 Mg/Ml 2 Ml Vial) 4 mg IV Q6H PRN PRN Reason: Nausea Stop: 03/16/21 21:08 Polyethylene Glycol (Polyethylene (Miralax) 17 Gm Pack) 17 gm PO DAILY PRN PRN Reason: Constipation Stop: 03/16/21 21:08 Pravastatin Sodium (Pravastatin Sod 40 Mg Tab) 40 mg PO HS [facility] Stop: 03/16/21 21:08 Last Admin: 02/14/21 22:03 Dose: 40 mg Documented by: Sertraline HCl (Sertraline Hcl 50 Mg Tablet) 50 mg PO QPM [facility] Stop: 03/16/21 21:08 Last Admin: 02/14/21 22:02 Dose: 50 mg Documented by: Sertraline HCl (Sertraline Hcl 100 Mg Tablet) 100 mg PO QPM [facility] Stop: 03/16/21 21:08 Last Admin: 02/14/21 22:03 Dose: 100 mg Documented by: Vitamin D (Cholecalciferol 1,000 Units 25 Mcg Tab) 2,000 units PO QAM [facility] Stop: 03/17/21 08:59 Last Admin: 02/15/21 08:17 Dose: 2,000 units Documented by: (1) COPD (chronic obstructive pulmonary disease) COPD type: unspecified COPD Qualified Code(s): J44.9 - Chronic obstructive pulmonary disease, unspecified (2) HTN (hypertension) Hypertension type: essential hypertension Qualified Code(s): I10 - Essential (primary) hypertension (3) Depression Depression Type: major depressive disorder Major depression recurrence: unspecified whether recurrent Active/Remission status: remission status unspecified Qualified Code(s): F32.9 - Major depressive disorder, single episode, unspecified
--- NOTE | 2021-02-15 10:21 | Pharmacy Report ---
Pharmacy Abx Dose Short Note - Date of Service February 15, 2021 - Assessment & Plan Assessment 81 year old admitted with possible sepsis/pneumonia. Recent admission 11/18-11/22 for Covid pneumonia. Outpatient sputum culture 01/23 with PA, was on levaquin. Blood and urine culture pending. Lactic acid trending down, procalcitonin elevated. Started on vancomycin and cefepime. Plan Vancomycin * Received vancomycin 1750 mg (~26 mg/kg/dose) x 1 last evening * Will dose with vancomycin 1250 mg iv q 24 hrs per vancomycin AUC nomogram dosing * Estimated kinetics: t1/2~17 hrs, ke~0.039 hr-1, CrCl ~42 ml/min * Will plan to collect trough if continued >48 hrs Cefepime * 2 gm iv q 12 hr - appropriate for Crcl 30-60 / no change Pharmacy will continue to follow and will adjust dose/frequency as necessary. Thank you.
[2021-02-15] MEDS: CEFEPIME 2,000 MG in SYRINGE 0 ML IV SCH ×2 (10:38→22:12)
--- NOTE | 2021-02-15 14:31 | Electrocardiogram Report ---
Test Reason : Blood Pressure : / mmHG Vent. Rate : 108 BPM Atrial Rate : 108 BPM P-R Int : 208 ms QRS Dur : 096 ms QT Int : 320 ms P-R-T Axes : 087 -13 010 degrees QTc Int : 428 ms Sinus tachycardia Low voltage QRS Inferior infarct , age undetermined Possible Anterolateral infarct (cited on or before 14-FEB-2021) Abnormal ECG When compared with ECG of 18-NOV-2020 01:23, Vent. rate has increased BY 44 BPM Confirmed by Yury Jeffrey ([id number]) on 02/15/2021 2:31:28 PM Referred By: Raz Hayes Confirmed By:Yury Jeffrey
[2021-02-15] MEDS ORDERED: VANCOMYCIN HCL 1,000 MG in SODIUM CHLORIDE 0.9% 250 ML IV SCH (16:00)
[2021-02-15] MEDS: VANCOMYCIN HCL 1,250 MG in SODIUM CHLORIDE 0.9% 250 ML IV SCH (19:54)
[2021-02-15] MEDS: ACETYLCYSTEINE 20% INHAL SOLN 4ML ***DISPENSED BY RESP. INH SCH (20:20)
[2021-02-15] MEDS: PRAVASTATIN SOD 40 MG TAB PO SCH (20:38)
[2021-02-15] MEDS: SERTRALINE HCL 50 MG TABLET PO SCH (20:38)
[2021-02-15] MEDS: SERTRALINE HCL 100 MG TABLET PO SCH (20:38)
[2021-02-15] MEDS: ENOXAPARIN INJ 30 MG/0.3 ML SYR SQ SCH (22:12)
[2021-02-15] MEDS: ADVANCED PROBIOTIC 1250 MG CAPSULE PO SCH (22:12)
[2021-02-16 07:16] LABS: Hematocrit (blood only) 33.3 % (37-47); Hemoglobin 10.7 g/dL (12.0-16.0); Mean Corpuscular Hemoglobin 29.2 pg (25-34); Mean Corpuscular Hgb Conc 32.1 g/dL (32-36); Mean Platelet Volume 10.1 fL (7.4-10.4); Platelet Count 120 K/uL (130-400); RDW Coefficient of Variation 15.4 % (11.5-14.5); RDW Standard Deviation 51.4 fL (36.4-46.3); Red Blood Count 3.66 M/uL (4.2-5.4); White Blood Count 7.13 K/uL (4.8-10.8)
[2021-02-16 07:45] LABS: BUN Creatinine Ratio 26.3 (10-20); Calcium 8.8 mg/dl (8.5-10.1); Creatinine Clr Calc Pharmacy 41.8 ml/min; Est GFR (African American) 64.6; Est GFR (Non-African American) 55.8; Magnesium 2.1 mg/dl (1.8-2.4); Phosphorus 3.2 mg/dl (2.5-4.9); Potassium 3.9 mmol/L (3.5-5.1)
[2021-02-16] MEDS: ACETYLCYSTEINE 20% INHAL SOLN 4ML ***DISPENSED BY RESP. INH SCH ×2 (07:47→20:24)
[2021-02-16] MEDS: ALBUT/IPRATROP 3MG/0.5MG NEB 3 ML VIAL INH SCH ×4 (07:48→20:24)
[2021-02-16] MEDS: guaiFENesin 600 MG TABCR PO SCH ×2 (08:45→20:07)
[2021-02-16] MEDS: ADVANCED PROBIOTIC 1250 MG CAPSULE PO SCH (08:45)
[2021-02-16] MEDS: ASPIRIN 81 MG ECTAB PO SCH (08:45)
[2021-02-16] MEDS: MULTIVITAMIN TAB PO SCH (08:45)
[2021-02-16] MEDS: CHOLECALCIFEROL 1,000 UNITS 25 MCG TAB PO SCH (08:46)
[2021-02-16] MEDS: METOPROLOL TARTRATE 25 MG TAB PO SCH ×2 (08:46→20:06)
[2021-02-16] MEDS: ASCORBIC ACID 500 MG TAB PO SCH (08:46)
--- NOTE | 2021-02-16 09:59 | Hospitalist Progress Note ---
Date of Service February 16, 2021 Assessment & Plan (1) Sepsis: (2) Metabolic encephalopathy: (3) Recurrent pneumonia: This is an 81yo F with a PMH of COPD with chronic respiratory failure requiring 2L O2 HS, bronchiectasis, suspected asthma, recurrent PNA since Covid in early November 2019, HTN, CKD, peripheral vascular disease, depression, memory loss/confusion, history of CVA, history of tobacco use and other medical problems listed below who presents with recurrent fevers over the past few weeks and was found to have sepsis likely 2/2 pulmonary source. Recurrent PNA since covid pneumonia in early November 2019 now presenting with intermittent fevers, malaise, confusion Outpatient sputum culture from January 23 growing pseudomonas, treated with 7 d course of Levaquin In ED, patient meeting sepsis criteria with temp of 37.7 degrees C, BP high 80s/40s improving with IVF, HR 112, O2 saturation 93% on room air. Initial lactic acid 2.2, procal 0.78 CXR with interval improvement in left basilar airspace opacities which could represent a chronic pneumonitis Ddx: bacterial PNA, pneumonitis 2/2 covid infection in November, DVT/PE or other infectious source Vancomycin and cefepime ordered for empiric antibiotic coverage. Urine, blood and sputum cultures pending Given 1.5 L of fluid with improved BP 95/51. Plan to continue maintenance fluids overnight. Repeating lactic acid CTA chest ordered to evaluate for PE 1. No evidence for pulmonary embolus. 2. No change in the 3.8 cm aneurysm at the thoracoabdominal aorta. No evidence for an aortic dissection. 3. Multiple new nodular and irregular airspace opacities within the left lower lobe. This favors a pneumonia. A 2-[address] follow-up recommended to ensure resolution. 4. Emphysema. 5. Scattered groundglass densities in the prior study have slightly improved. 6. Stable subcentimeter pulmonary nodules. (4) COPD (chronic obstructive pulmonary disease): (5) Bronchiectasis: Following with [facility] pulmonology at [facility] Continue neb treatment, flutter valve QID, mucinex , IS Received 10mg IV Dexamethasone in ED. No acute hypoxia or wheezing on exam, so steroids were stopped, may need to taper now as resp. status seems worse than yesterday Supplemental O2 HS (6) CKD (chronic kidney disease), stage III: Kidney function at baseline. Monitor with daily BMP (7) HTN (hypertension): Hypotensive in setting of sepsis. Continue Lopressor with hold parameters Current BP improved (8) Depression: Continue sertraline (9) Dementia: Fall precautions, will need redirection Increased risk of delirium DVT Ppx: SQ Lovenox Code status: FULL PCP: Dr. Hayes Dispo: Med/ tele Admission and Anticipated Discharge Date Admission Date: February 14, 2021 Subjective Pt seen in follow up of PNA, fever, hypotension Currently laying in bed, in NAD Pt feels more short of breath, now on suppl. O2 Also seems little confused Has productive cough and difficulty coughing up sputum Review of Systems Review of Systems: All systems reviewed & are unremarkable except as noted in HPI & below Constitutional: no fever and no chills Respiratory: + cough (productive) and + dyspnea Cardiovascular: no chest pain and no palpitations Gastrointestinal: no abdominal pain, no nausea and no vomiting Physical Exam Physical Exam: General Appearance: WD/WN, laying in bed, in NAD, on suppl. O2 Head: normocephalic, atraumatic Eyes: normal inspection, EOMI, PERRL, conjunctivae normal, anicteric sclerae ENT: external ear and nose normal, dry oropharynx mucous membranes Neck: normal visual inspection, trachea midline, no thyromegaly Respiratory: normal respiratory effort, diffuse mild wheezes and rhonchi. No accessory muscle use Cardiovascular: regular rate, rhythm, no murmur appreciated, normal peripheral pulses, no BLE edema. Vessels: no JVD Chest: normal inspection of chest Abdomen/GI: normal bowel sounds, soft, nontender Extremities/Musculoskeletal: no cyanosis or clubbing, extremities motor strength 5/5 Neurologic: PERRL, EOMI, no face palsy, no dysarthria, CN's II-XI intact bilaterally and moves all extremities Psychiatric: A+Ox person & place, euthymic affect Skin: no rashes, normal color, warm/dry Results & Data Results & Data ([facility]) Vital Signs (Past 12 Hours) Vital Signs Temp Pulse Pulse Pulse Resp BP Pulse Ox 02/16/21 07:54 68 18 94 02/16/21 07:41 36.4 C L 67 18 136/81 90 02/16/21 07:17 71 02/16/21 03:31 67 02/16/21 02:30 37.1 C 70 18 109/66 93 02/15/21 23:42 36.7 C 73 16 143/73 H 93 02/15/21 22:06 95 H Laboratory Results 02/16/21 02/16/21 02/16/21 Range/Units 06:33 06:33 06:33 WBC 7.13 (4.8-10.8) K/uL RBC 3.66 L (4.2-5.4) M/uL Hgb 10.7 L (12.0-16.0) g/dL Hct 33.3 L (37-47) % MCV 91.0 (80-100) fL MCH 29.2 (25-34) pg MCHC 32.1 (32-36) g/dL RDW Std Deviation 51.4 H (36.4-46.3) fL RDW Coeff of Wayne 15.4 H (11.5-14.5) % Plt Count 120 L (130-400) K/uL MPV 10.1 (7.4-10.4) fL Sodium 137 (136-145) mmol/L Potassium 3.9 (3.5-5.1) mmol/L Chloride 109 H (98-107) mmol/L Carbon Dioxide 24 (21-32) mmol/L Anion Gap 5.0 (3-11) BUN 25 H (7-18) mg/dl Creatinine 0.95 (0.6-1.2) mg/dl Est Cr Clr Drug Dosing 41.8 ml/min Est GFR ( Amer) 64.6 Est GFR (Non-Af Amer) 55.8 BUN/Creatinine Ratio 26.3 H (10-20) Glucose 71 (70-99) mg/dl Calcium 8.8 (8.5-10.1) mg/dl Phosphorus 3.2 (2.5-4.9) mg/dl Magnesium 2.1 (1.8-2.4) mg/dl Procalcitonin 0.37 (0-0.5) ng/ml Medications Administered Current Inpatient Medications Acetaminophen (Acetaminophen 325 Mg Tab) 650 mg PO Q4H PRN PRN Reason: Pain or Fever Stop: 03/16/21 21:08 Acetylcysteine (Acetylcysteine 20% Inhal Soln 4ml Dispensed By Resp.) 5 ml INH Q12R [facility] Stop: 03/17/21 18:59 Last Admin: 02/16/21 07:47 Dose: 5 ml Documented by: Albuterol (Albut/Ipratrop 3mg/0.5mg Neb 3 Ml Vial) 3 ml INH QIDR [facility] Stop: 03/17/21 06:59 Last Admin: 02/16/21 07:48 Dose: 3 ml Documented by: Ascorbic Acid (Ascorbic Acid 500 Mg Tab) 500 mg PO QAM [facility] Stop: 03/17/21 08:59 Last Admin: 02/16/21 08:46 Dose: 500 mg Documented by: Aspirin (Aspirin 81 Mg Ectab) 81 mg PO DAILY [facility] Stop: 03/17/21 08:59 Last Admin: 02/16/21 08:45 Dose: 81 mg Documented by: Enoxaparin Sodium (Enoxaparin Inj 30 Mg/0.3 Ml Syr) 30 mg SQ Q24H [facility] Stop: 03/16/21 21:59 Last Admin: 02/15/21 22:12 Dose: 30 mg Documented by: Fluticasone/Vilanterol (Fluticasone/Vilanterol 100/25mcg 14 Puffs/Inhaler) 1 puffs INH DAILY [facility] Stop: 03/17/21 08:59 Last Admin: 02/15/21 08:16 Dose: 1 puffs Documented by: Guaifenesin (Guaifenesin 600 Mg Tabcr) 1,200 mg PO BID [facility] Stop: 03/16/21 21:08 Last Admin: 02/16/21 08:45 Dose: 1,200 mg Documented by: Cefepime HCl 2,000 mg/ Syringe 20 mls @ 5 mls/min IV Q12H [facility]; Protocol Stop: 02/22/21 09:59 Last Admin: 02/15/21 22:12 Dose: 5 mls/min Documented by: Vancomycin HCl 1,250 mg/ (Sodium Chloride) 275 mls @ 200 mls/hr IV Q24H [facility] Stop: 02/22/21 19:59 Last Infusion: 02/15/21 22:04 Dose: Infused Documented by: Lactobacillus Acidoph/Casei/Rhamnos (Advanced Probiotic 1250 Mg Capsule) 2 cap PO DAILY [facility] Stop: 03/17/21 20:54 Last Admin: 02/16/21 08:45 Dose: 2 cap Documented by: Metoprolol Tartrate (Metoprolol Tartrate 25 Mg Tab) 25 mg PO BID [facility] Stop: 03/16/21 21:08 Last Admin: 02/16/21 08:46 Dose: 25 mg Documented by: Miscellaneous Information (Vancomycin Consult Active) 1 ea N/A UD PRN PRN Reason: Consult Stop: 03/16/21 16:46 Miscellaneous Information (Cefepime Consult Active) 1 ea N/A UD PRN PRN Reason: Consult Stop: 03/16/21 21:26 Multivitamins (Multivitamin Tab) 1 tab PO QAM [facility] Stop: 03/17/21 08:59 Last Admin: 02/16/21 08:45 Dose: 1 tab Documented by: Ondansetron HCl (Ondansetron Inj 2 Mg/Ml 2 Ml Vial) 4 mg IV Q6H PRN PRN Reason: Nausea Stop: 03/16/21 21:08 Polyethylene Glycol (Polyethylene (Miralax) 17 Gm Pack) 17 gm PO DAILY PRN PRN Reason: Constipation Stop: 03/16/21 21:08 Pravastatin Sodium (Pravastatin Sod 40 Mg Tab) 40 mg PO HS [facility] Stop: 03/16/21 21:08 Last Admin: 02/15/21 20:38 Dose: 40 mg Documented by: Sertraline HCl (Sertraline Hcl 50 Mg Tablet) 50 mg PO QPM [facility] Stop: 03/16/21 21:08 Last Admin: 02/15/21 20:38 Dose: 50 mg Documented by: Sertraline HCl (Sertraline Hcl 100 Mg Tablet) 100 mg PO QPM [facility] Stop: 03/16/21 21:08 Last Admin: 02/15/21 20:38 Dose: 100 mg Documented by: Vitamin D (Cholecalciferol 1,000 Units 25 Mcg Tab) 2,000 units PO QAM [facility] Stop: 03/17/21 08:59 Last Admin: 02/16/21 08:46 Dose: 2,000 units Documented by: (1) Depression Active/Remission status: remission status unspecified Depression Type: major depressive disorder Major depression recurrence: unspecified whether recurrent Qualified Code(s): F32.9 - Major depressive disorder, single episode, unspecified (2) COPD (chronic obstructive pulmonary disease) COPD type: unspecified COPD Qualified Code(s): J44.9 - Chronic obstructive pulmonary disease, unspecified (3) HTN (hypertension) Hypertension type: essential hypertension Qualified Code(s): I10 - Essential (primary) hypertension
[2021-02-16] MEDS: CEFEPIME 2,000 MG in SYRINGE 0 ML IV SCH ×2 (10:00→22:17)
[2021-02-16] MEDS ORDERED: ALBUT/IPRATROP 3MG/0.5MG NEB 3 ML VIAL NEB PRN (12:11)
[2021-02-16] MEDS ORDERED: predniSONE 20 MG TAB PO STA (12:21)
[2021-02-16] MEDS: FLUTICASONE/VILANTEROL 100/25MCG 14 PUFFS/INHALER INH SCH (13:18)
--- NOTE | 2021-02-16 13:22 | XRay Report ---
SINGLE VIEW CHEST CLINICAL HISTORY: Hypoxia. FINDINGS: An AP, portable, upright chest radiograph is compared to chest x-ray and chest CT dated 01/18. The heart is enlarged noting atherosclerotic calcification of the thoracic aorta. The pulmona ry vasculature is noncongested. Emphysematous change and chronic interstitial thickening is similar t o previous. Patchy airspace consolidation is again seen at the left lung base. No large pleural effus ion or pneumothorax is seen. The skeletal structures are osteopenic. The bony thorax is grossly intac t. IMPRESSION: 1. Cardiomegaly and emphysema. 2. Patchy airspace consolidation is again seen at the left lung base. ACT 112: Negative or not required by law. Electronically signed by: Merrill Pro M.D. 02/16/2021 1:20 PM
[2021-02-16] MEDS: SERTRALINE HCL 50 MG TABLET PO SCH (20:06)
[2021-02-16] MEDS: SERTRALINE HCL 100 MG TABLET PO SCH (20:06)
[2021-02-16] MEDS: PRAVASTATIN SOD 40 MG TAB PO SCH (20:07)
[2021-02-16] MEDS: ENOXAPARIN INJ 30 MG/0.3 ML SYR SQ SCH (20:07)
[2021-02-16] MEDS: VANCOMYCIN HCL 1,250 MG in SODIUM CHLORIDE 0.9% 250 ML IV SCH (20:08)
[2021-02-17] MEDS ORDERED: HALOPERIDOL LACTATE 5 MG/ML 1 ML VIAL IM STA (00:33)
[2021-02-17 06:22] LABS: Hematocrit (blood only) 32.6 % (37-47); Hemoglobin 10.4 g/dL (12.0-16.0); Mean Corpuscular Hemoglobin 28.7 pg (25-34); Mean Corpuscular Hgb Conc 31.9 g/dL (32-36); Mean Corpuscular Volume 89.8 fL (80-100); Mean Platelet Volume 10.3 fL (7.4-10.4); Platelet Count 114 K/uL (130-400); RDW Coefficient of Variation 15.1 % (11.5-14.5); RDW Standard Deviation 49.5 fL (36.4-46.3); Red Blood Count 3.63 M/uL (4.2-5.4); White Blood Count 8.04 K/uL (4.8-10.8)
[2021-02-17 06:48] LABS: BUN Creatinine Ratio 29.6 (10-20); Creatinine Clr Calc Pharmacy 42.2 ml/min; Est GFR (African American) 65.5; Est GFR (Non-African American) 56.5; Magnesium 2.1 mg/dl (1.8-2.4); Phosphorus 3.1 mg/dl (2.5-4.9); Potassium 4.1 mmol/L (3.5-5.1)
--- NOTE | 2021-02-17 07:00 | Hospitalist Progress Note ---
Date of Service February 17, 2021 Assessment & Plan (1) Sepsis: (2) Metabolic encephalopathy: (3) Recurrent pneumonia: This is an 81yo F with a PMH of COPD with chronic respiratory failure requiring 2L O2 HS, bronchiectasis, suspected asthma, recurrent PNA since Covid in early November 2019, HTN, CKD, peripheral vascular disease, depression, memory loss/confusion, history of CVA, history of tobacco use and other medical problems listed below who presents with recurrent fevers over the past few weeks and was found to have sepsis likely 2/2 pulmonary source. Recurrent PNA since covid pneumonia in early November 2019 now presenting with intermittent fevers, malaise, confusion Outpatient sputum culture from January 23 growing pseudomonas, treated with 7 d course of Levaquin In ED, patient meeting sepsis criteria with temp of 37.7 degrees C, BP high 80s/40s improving with IVF, HR 112, O2 saturation 93% on room air. Initial lactic acid 2.2, procal 0.78 CXR with interval improvement in left basilar airspace opacities which could represent a chronic pneumonitis Ddx: bacterial PNA, pneumonitis 2/2 covid infection in November, DVT/PE or other infectious source Vancomycin and cefepime ordered for empiric antibiotic coverage. Urine, blood and sputum cultures pending Given 1.5 L of fluid with improved BP 95/51. Plan to continue maintenance fluids overnight. Repeating lactic acid CTA chest ordered to evaluate for PE 1. No evidence for pulmonary embolus. 2. No change in the 3.8 cm aneurysm at the thoracoabdominal aorta. No evidence for an aortic dissection. 3. Multiple new nodular and irregular airspace opacities within the left lower lobe. This favors a pneumonia. A 2-[address] follow-up recommended to ensure resolution. 4. Emphysema. 5. Scattered groundglass densities in the prior study have slightly improved. 6. Stable subcentimeter pulmonary nodules. (4) COPD (chronic obstructive pulmonary disease): (5) Bronchiectasis: Following with [facility] pulmonology at [facility] Continue neb treatment, flutter valve QID, mucinex , IS Received 10mg IV Dexamethasone in ED. No acute hypoxia or wheezing on exam, + mild rhonchi , +/- steroids as needed, now stopped Supplemental O2 HS (6) CKD (chronic kidney disease), stage III: Kidney function at baseline. Monitor with daily BMP (7) HTN (hypertension): Hypotensive in setting of sepsis. Continue Lopressor with hold parameters Current BP improved (8) Depression: Continue sertraline (9) Dementia: Fall precautions, will need redirection Increased risk of delirium DVT Ppx: SQ Lovenox Code status: FULL PCP: Dr. Hayes Dispo: Med/ tele Admission and Anticipated Discharge Date Admission Date: February 14, 2021 Subjective Pt seen in follow up of PNA, fever, hypotension Currently laying in bed, in NAD However overnight patient was more awake, and agitated, and required IM Haldol Currently daughter at the bedside, and patient is awake, alert, and not requiring oxygen supplement Has productive cough and difficulty coughing up sputum Review of Systems Review of Systems: All systems reviewed & are unremarkable except as noted in HPI & below Constitutional: no fever and no chills Respiratory: + cough (productive) and + dyspnea (much improved) Cardiovascular: no chest pain and no palpitations Gastrointestinal: no abdominal pain, no nausea and no vomiting Physical Exam Physical Exam: General Appearance: WD/WN, laying in bed, in NAD, on RA Head: normocephalic, atraumatic Eyes: normal inspection, EOMI, PERRL, conjunctivae normal, anicteric sclerae ENT: external ear and nose normal, dry oropharynx mucous membranes Neck: normal visual inspection, trachea midline, no thyromegaly Respiratory: normal respiratory effort, diffuse mild wheezes and rhonchi. No accessory muscle use Cardiovascular: regular rate, rhythm, no murmur appreciated, normal peripheral pulses, no BLE edema. Vessels: no JVD Chest: normal inspection of chest Abdomen/GI: normal bowel sounds, soft, nontender Extremities/Musculoskeletal: no cyanosis or clubbing, extremities motor strength 5/5 Neurologic: PERRL, EOMI, no face palsy, no dysarthria, CN's II-XI intact bilaterally and moves all extremities Psychiatric: A+Ox person & place, euthymic affect Skin: no rashes, normal color, warm/dry Results & Data Results & Data ([facility]) Vital Signs (Past 12 Hours) Vital Signs Temp Pulse Pulse Resp BP Pulse Ox 02/17/21 03:00 96 H 02/16/21 22:17 37 C 96 H 18 97/60 L 97 02/16/21 21:26 97 H 18 97 02/16/21 19:44 36.8 C 98 H 18 120/75 97 Laboratory Results 02/17/21 02/17/21 02/16/21 Range/Units 05:38 05:38 06:33 WBC 8.04 (4.8-10.8) K/uL RBC 3.63 L (4.2-5.4) M/uL Hgb 10.4 L (12.0-16.0) g/dL Hct 32.6 L (37-47) % MCV 89.8 (80-100) fL MCH 28.7 (25-34) pg MCHC 31.9 L (32-36) g/dL RDW Std Deviation 49.5 H (36.4-46.3) fL RDW Coeff of Wayne 15.1 H (11.5-14.5) % Plt Count 114 L (130-400) K/uL MPV 10.3 (7.4-10.4) fL Sodium 137 (136-145) mmol/L Potassium 4.1 (3.5-5.1) mmol/L Chloride 110 H (98-107) mmol/L Carbon Dioxide 22 (21-32) mmol/L Anion Gap 6.0 (3-11) BUN 28 H (7-18) mg/dl Creatinine 0.94 (0.6-1.2) mg/dl Est Cr Clr Drug Dosing 42.2 ml/min Est GFR ( Amer) 65.5 Est GFR (Non-Af Amer) 56.5 BUN/Creatinine Ratio 29.6 H (10-20) Glucose 97 (70-99) mg/dl Calcium 9.0 (8.5-10.1) mg/dl Phosphorus 3.1 (2.5-4.9) mg/dl Magnesium 2.1 (1.8-2.4) mg/dl Procalcitonin 0.37 (0-0.5) ng/ml 02/16/21 02/16/21 Range/Units 06:33 06:33 WBC 7.13 (4.8-10.8) K/uL RBC 3.66 L (4.2-5.4) M/uL Hgb 10.7 L (12.0-16.0) g/dL Hct 33.3 L (37-47) % MCV 91.0 (80-100) fL MCH 29.2 (25-34) pg MCHC 32.1 (32-36) g/dL RDW Std Deviation 51.4 H (36.4-46.3) fL RDW Coeff of Wayne 15.4 H (11.5-14.5) % Plt Count 120 L (130-400) K/uL MPV 10.1 (7.4-10.4) fL Sodium 137 (136-145) mmol/L Potassium 3.9 (3.5-5.1) mmol/L Chloride 109 H (98-107) mmol/L Carbon Dioxide 24 (21-32) mmol/L Anion Gap 5.0 (3-11) BUN 25 H (7-18) mg/dl Creatinine 0.95 (0.6-1.2) mg/dl Est Cr Clr Drug Dosing 41.8 ml/min Est GFR ( Amer) 64.6 Est GFR (Non-Af Amer) 55.8 BUN/Creatinine Ratio 26.3 H (10-20) Glucose 71 (70-99) mg/dl Calcium 8.8 (8.5-10.1) mg/dl Phosphorus 3.2 (2.5-4.9) mg/dl Magnesium 2.1 (1.8-2.4) mg/dl Procalcitonin (0-0.5) ng/ml Medications Administered Current Inpatient Medications Acetaminophen (Acetaminophen 325 Mg Tab) 650 mg PO Q4H PRN PRN Reason: Pain or Fever Stop: 03/16/21 21:08 Acetylcysteine (Acetylcysteine 20% Inhal Soln 4ml Dispensed By Resp.) 5 ml INH Q12R [facility] Stop: 03/17/21 18:59 Last Admin: 02/16/21 20:24 Dose: 5 ml Documented by: Albuterol (Albut/Ipratrop 3mg/0.5mg Neb 3 Ml Vial) 3 ml INH QIDR [facility] Stop: 03/17/21 06:59 Last Admin: 02/16/21 20:24 Dose: 3 ml Documented by: Albuterol (Albut/Ipratrop 3mg/0.5mg Neb 3 Ml Vial) 3 ml NEB Q2H PRN PRN Reason: wheezing Stop: 03/18/21 12:14 Ascorbic Acid (Ascorbic Acid 500 Mg Tab) 500 mg PO QAM [facility] Stop: 03/17/21 08:59 Last Admin: 02/16/21 08:46 Dose: 500 mg Documented by: Aspirin (Aspirin 81 Mg Ectab) 81 mg PO DAILY [facility] Stop: 03/17/21 08:59 Last Admin: 02/16/21 08:45 Dose: 81 mg Documented by: Enoxaparin Sodium (Enoxaparin Inj 30 Mg/0.3 Ml Syr) 30 mg SQ Q24H [facility] Stop: 03/16/21 21:59 Last Admin: 02/16/21 20:07 Dose: 30 mg Documented by: Fluticasone/Vilanterol (Fluticasone/Vilanterol 100/25mcg 14 Puffs/Inhaler) 1 puffs INH DAILY [facility] Stop: 03/17/21 08:59 Last Admin: 02/16/21 13:18 Dose: 1 puffs Documented by: Guaifenesin (Guaifenesin 600 Mg Tabcr) 1,200 mg PO BID [facility] Stop: 03/16/21 21:08 Last Admin: 02/16/21 20:07 Dose: 1,200 mg Documented by: Cefepime HCl 2,000 mg/ Syringe 20 mls @ 5 mls/min IV Q12H [facility]; Protocol Stop: 02/22/21 09:59 Last Admin: 02/16/21 22:17 Dose: 5 mls/min Documented by: Vancomycin HCl 1,250 mg/ (Sodium Chloride) 275 mls @ 200 mls/hr IV Q24H [facility] Stop: 02/22/21 19:59 Last Infusion: 02/16/21 21:59 Dose: Infused Documented by: Lactobacillus Acidoph/Casei/Rhamnos (Advanced Probiotic 1250 Mg Capsule) 2 cap PO DAILY [facility] Stop: 03/17/21 20:54 Last Admin: 02/16/21 08:45 Dose: 2 cap Documented by: Metoprolol Tartrate (Metoprolol Tartrate 25 Mg Tab) 25 mg PO BID [facility] Stop: 03/16/21 21:08 Last Admin: 02/16/21 20:06 Dose: 25 mg Documented by: Miscellaneous Information (Vancomycin Consult Active) 1 ea N/A UD PRN PRN Reason: Consult Stop: 03/16/21 16:46 Miscellaneous Information (Cefepime Consult Active) 1 ea N/A UD PRN PRN Reason: Consult Stop: 03/16/21 21:26 Multivitamins (Multivitamin Tab) 1 tab PO QAM [facility] Stop: 03/17/21 08:59 Last Admin: 02/16/21 08:45 Dose: 1 tab Documented by: Ondansetron HCl (Ondansetron Inj 2 Mg/Ml 2 Ml Vial) 4 mg IV Q6H PRN PRN Reason: Nausea Stop: 03/16/21 21:08 Polyethylene Glycol (Polyethylene (Miralax) 17 Gm Pack) 17 gm PO DAILY PRN PRN Reason: Constipation Stop: 03/16/21 21:08 Pravastatin Sodium (Pravastatin Sod 40 Mg Tab) 40 mg PO HS [facility] Stop: 03/16/21 21:08 Last Admin: 02/16/21 20:07 Dose: 40 mg Documented by: Sertraline HCl (Sertraline Hcl 50 Mg Tablet) 50 mg PO QPM [facility] Stop: 03/16/21 21:08 Last Admin: 02/16/21 20:06 Dose: 50 mg Documented by: Sertraline HCl (Sertraline Hcl 100 Mg Tablet) 100 mg PO QPM [facility] Stop: 03/16/21 21:08 Last Admin: 02/16/21 20:06 Dose: 100 mg Documented by: Vitamin D (Cholecalciferol 1,000 Units 25 Mcg Tab) 2,000 units PO QAM [facility] Stop: 03/17/21 08:59 Last Admin: 02/16/21 08:46 Dose: 2,000 units Documented by: (1) Depression Active/Remission status: remission status unspecified Depression Type: major depressive disorder Major depression recurrence: unspecified whether recurrent Qualified Code(s): F32.9 - Major depressive disorder, single episode, unspecified (2) COPD (chronic obstructive pulmonary disease) COPD type: unspecified COPD Qualified Code(s): J44.9 - Chronic obstructive pulmonary disease, unspecified (3) Bronchiectasis Bronchiectasis type: with acute exacerbation Qualified Code(s): J47.1 - Bronchiectasis with (acute) exacerbation (4) HTN (hypertension) Hypertension type: essential hypertension Qualified Code(s): I10 - Essential (primary) hypertension
[2021-02-17] MEDS: ALBUT/IPRATROP 3MG/0.5MG NEB 3 ML VIAL INH SCH ×4 (07:10→19:15)
[2021-02-17] MEDS: ACETYLCYSTEINE 20% INHAL SOLN 4ML ***DISPENSED BY RESP. INH SCH (07:10)
--- NOTE | 2021-02-17 07:25 | Hospitalist Progress Note ---
Date of Service February 17, 2021 Assessment & Plan Admission and Anticipated Discharge Date Admission Date: February 14, 2021 Subjective Given a dose of im haldol 0.5mg for agitation last night. Results & Data Results & Data ([facility]) Vital Signs (Past 12 Hours) Vital Signs Temp Pulse Pulse Resp BP Pulse Ox 02/17/21 07:10 71 17 98 02/17/21 07:07 91 H 02/17/21 03:00 96 H 02/16/21 22:17 37 C 96 H 18 97/60 L 97 02/16/21 21:26 97 H 18 97 02/16/21 19:44 36.8 C 98 H 18 120/75 97
[2021-02-17] MEDS: ADVANCED PROBIOTIC 1250 MG CAPSULE PO SCH (09:21)
[2021-02-17] MEDS: ASCORBIC ACID 500 MG TAB PO SCH (09:21)
[2021-02-17] MEDS: ASPIRIN 81 MG ECTAB PO SCH (09:21)
[2021-02-17] MEDS: CHOLECALCIFEROL 1,000 UNITS 25 MCG TAB PO SCH (09:21)
[2021-02-17] MEDS: METOPROLOL TARTRATE 25 MG TAB PO SCH ×2 (09:21→20:16)
[2021-02-17] MEDS: MULTIVITAMIN TAB PO SCH (09:21)
[2021-02-17] MEDS: guaiFENesin 600 MG TABCR PO SCH ×2 (09:22→20:18)
[2021-02-17] MEDS: CEFEPIME 2,000 MG in SYRINGE 0 ML IV SCH ×2 (11:46→20:16)
[2021-02-17] MEDS: FLUTICASONE/VILANTEROL 100/25MCG 14 PUFFS/INHALER INH SCH (11:47)
[2021-02-17] MEDS: SODIUM CHLOR 7% 4 ML NEB NEB SCH (19:10)
[2021-02-17] MEDS: VANCOMYCIN HCL 1,250 MG in SODIUM CHLORIDE 0.9% 250 ML IV SCH (20:15)
[2021-02-17] MEDS: SERTRALINE HCL 50 MG TABLET PO SCH (20:17)
[2021-02-17] MEDS: SERTRALINE HCL 100 MG TABLET PO SCH (20:17)
[2021-02-17] MEDS: PRAVASTATIN SOD 40 MG TAB PO SCH (20:17)
[2021-02-17] MEDS: ENOXAPARIN INJ 30 MG/0.3 ML SYR SQ SCH (20:17)
[2021-02-17] MEDS ORDERED: MELATONIN 3 MG TAB PO SCH (21:00)
[2021-02-18] MEDS: SODIUM CHLOR 7% 4 ML NEB NEB SCH (07:37)
[2021-02-18] MEDS: ALBUT/IPRATROP 3MG/0.5MG NEB 3 ML VIAL INH SCH ×2 (07:37→11:29)
[2021-02-18 08:08] LABS: BUN Creatinine Ratio 25.8 (10-20); Calcium 8.7 mg/dl (8.5-10.1); Est GFR (African American) 66.3; Est GFR (Non-African American) 57.2; Potassium 3.9 mmol/L (3.5-5.1)
[2021-02-18] MEDS: ASCORBIC ACID 500 MG TAB PO SCH (08:12)
[2021-02-18] MEDS: METOPROLOL TARTRATE 25 MG TAB PO SCH (08:12)
[2021-02-18] MEDS: FLUTICASONE/VILANTEROL 100/25MCG 14 PUFFS/INHALER INH SCH (08:12)
[2021-02-18] MEDS: ASPIRIN 81 MG ECTAB PO SCH (08:12)
[2021-02-18] MEDS: guaiFENesin 600 MG TABCR PO SCH (08:12)
[2021-02-18] MEDS: ADVANCED PROBIOTIC 1250 MG CAPSULE PO SCH (08:12)
[2021-02-18] MEDS: CHOLECALCIFEROL 1,000 UNITS 25 MCG TAB PO SCH (08:12)
[2021-02-18] MEDS: MULTIVITAMIN TAB PO SCH (08:12)
[2021-02-18 08:20] LABS: Phosphorus 2.3 mg/dl (2.5-4.9)
[2021-02-18] MEDS ORDERED: levoFLOXacin/D5W 750 MG/150 ML BAG IV SCH (09:00)
--- NOTE | 2021-02-18 10:27 | Hospitalist Progress Note ---
Date of Service February 18, 2021 Assessment & Plan (1) Sepsis: (2) Metabolic encephalopathy: (3) Recurrent pneumonia: This is an 81yo F with a PMH of COPD with chronic respiratory failure requiring 2L O2 HS, bronchiectasis, suspected asthma, recurrent PNA since Covid in early November 2019, HTN, CKD, peripheral vascular disease, depression, memory loss/confusion, history of CVA, history of tobacco use and other medical problems listed below who presents with recurrent fevers over the past few weeks and was found to have sepsis likely 2/2 pulmonary source. Recurrent PNA since covid pneumonia in early November 2019 now presenting with intermittent fevers, malaise, confusion Outpatient sputum culture from January 23 growing pseudomonas, treated with 7 d course of Levaquin In ED, patient meeting sepsis criteria with temp of 37.7 degrees C, BP high 80s/40s improving with IVF, HR 112, O2 saturation 93% on room air. Initial lactic acid 2.2, procal 0.78 CXR with interval improvement in left basilar airspace opacities which could represent a chronic pneumonitis Ddx: bacterial PNA, pneumonitis 2/2 covid infection in November, DVT/PE or other infectious source Vancomycin and cefepime ordered for empiric antibiotic coverage. Urine, blood and sputum cultures obtained. Urine culture negative Blood culture no growth in 48 hours CTA chest ordered to evaluate for PE and pna 1. No evidence for pulmonary embolus. 2. No change in the 3.8 cm aneurysm at the thoracoabdominal aorta. No evidence for an aortic dissection. 3. Multiple new nodular and irregular airspace opacities within the left lower lobe. This favors a pneumonia. A 2-[address] follow-up recommended to ensure resolution. 4. Emphysema. 5. Scattered groundglass densities in the prior study have slightly improved. 6. Stable subcentimeter pulmonary nodules. Empiric antibiotics changed to Levaquin given culture positive for Pseudomonas on January 23. Sputum culture ordered however patient was not able to produce sample during this hospital stay. Plan to discharge on Levaquin and follow-up with PCP and pulmonology. Currently patient is comfortable, breathing on room air, feeling much better continues to have a cough. (4) COPD (chronic obstructive pulmonary disease): (5) Bronchiectasis: Following with [facility] pulmonology at [facility] Continue neb treatment, flutter valve QID, mucinex , IS Received 10mg IV Dexamethasone in ED. No acute hypoxia or wheezing on exam, + mild rhonchi , +/- steroids as needed, now stopped Supplemental O2 HS Recommend follow-up with pulmonology (6) CKD (chronic kidney disease), stage III: Kidney function at baseline. Monitor with daily BMP (7) HTN (hypertension): Hypotensive in setting of sepsis. Continue Lopressor with hold parameters Current BP improved/ normal (8) Depression: Continue sertraline (9) Dementia: Fall precautions, will need redirection Increased risk of delirium DVT Ppx: SQ Lovenox Code status: FULL PCP: Dr. Hayes Dispo: Med/ tele Admission and Anticipated Discharge Date Admission Date: February 14, 2021 Subjective Pt seen in follow up of PNA, fever, hypotension Currently laying in bed, in NAD Currently patient is awake, alert, and not requiring oxygen supplement Has productive cough and some difficulty coughing up sputum Overall she feels better, and currently has no complaints Review of Systems Review of Systems: All systems reviewed & are unremarkable except as noted in HPI & below Constitutional: no fever and no chills Respiratory: + cough (productive); no dyspnea Cardiovascular: no chest pain and no palpitations Gastrointestinal: no abdominal pain, no nausea and no vomiting Physical Exam Physical Exam: General Appearance: WD/WN, laying in bed, in NAD, on RA Head: normocephalic, atraumatic Eyes: normal inspection, EOMI, PERRL, conjunctivae normal, anicteric sclerae ENT: external ear and nose normal, dry oropharynx mucous membranes Neck: normal visual inspection, trachea midline, no thyromegaly Respiratory: normal respiratory effort, diffuse mild rhonchi. No accessory muscle use Cardiovascular: regular rate, rhythm, no murmur appreciated, normal peripheral pulses, no BLE edema. Vessels: no JVD Chest: normal inspection of chest Abdomen/GI: normal bowel sounds, soft, nontender Extremities/Musculoskeletal: no cyanosis or clubbing, extremities motor strength 5/5 Neurologic: PERRL, EOMI, no face palsy, no dysarthria, CN's II-XI intact bilaterally and moves all extremities Psychiatric: A+Ox person & place, euthymic affect Skin: no rashes, normal color, warm/dry Results & Data Results & Data ([facility]) Vital Signs (Past 12 Hours) Vital Signs Temp Pulse Pulse Resp BP Pulse Ox 02/18/21 07:40 37.0 C 99 H 18 144/88 H 91 02/18/21 07:20 72 02/18/21 00:07 37.2 C 65 16 96/60 L 91 02/17/21 23:32 68 Laboratory Results 02/18/21 Range/Units 07:19 Sodium 140 (136-145) mmol/L Potassium 3.9 (3.5-5.1) mmol/L Chloride 113 H (98-107) mmol/L Carbon Dioxide 22 (21-32) mmol/L Anion Gap 6.0 (3-11) BUN 24 H (7-18) mg/dl Creatinine 0.93 (0.6-1.2) mg/dl Est Cr Clr Drug Dosing 42.0 ml/min Est GFR ( Amer) 66.3 Est GFR (Non-Af Amer) 57.2 BUN/Creatinine Ratio 25.8 H (10-20) Glucose 87 (70-99) mg/dl Calcium 8.7 (8.5-10.1) mg/dl Phosphorus 2.3 L (2.5-4.9) mg/dl Magnesium 2.0 (1.8-2.4) mg/dl Medications Administered Current Inpatient Medications Acetaminophen (Acetaminophen 325 Mg Tab) 650 mg PO Q4H PRN PRN Reason: Pain or Fever Stop: 03/16/21 21:08 Last Admin: 02/17/21 20:16 Dose: 650 mg Documented by: Albuterol (Albut/Ipratrop 3mg/0.5mg Neb 3 Ml Vial) 3 ml INH QIDR [facility] Stop: 03/17/21 06:59 Last Admin: 02/18/21 07:37 Dose: 3 ml Documented by: Albuterol (Albut/Ipratrop 3mg/0.5mg Neb 3 Ml Vial) 3 ml NEB Q2H PRN PRN Reason: wheezing Stop: 03/18/21 12:14 Ascorbic Acid (Ascorbic Acid 500 Mg Tab) 500 mg PO QAM [facility] Stop: 03/17/21 08:59 Last Admin: 02/18/21 08:12 Dose: 500 mg Documented by: Aspirin (Aspirin 81 Mg Ectab) 81 mg PO DAILY [facility] Stop: 03/17/21 08:59 Last Admin: 02/18/21 08:12 Dose: 81 mg Documented by: Enoxaparin Sodium (Enoxaparin Inj 30 Mg/0.3 Ml Syr) 30 mg SQ Q24H [facility] Stop: 03/16/21 21:59 Last Admin: 02/17/21 20:17 Dose: 30 mg Documented by: Fluticasone/Vilanterol (Fluticasone/Vilanterol 100/25mcg 14 Puffs/Inhaler) 1 puffs INH DAILY [facility] Stop: 03/17/21 08:59 Last Admin: 02/18/21 08:12 Dose: 1 puffs Documented by: Guaifenesin (Guaifenesin 600 Mg Tabcr) 1,200 mg PO BID [facility] Stop: 03/16/21 21:08 Last Admin: 02/18/21 08:12 Dose: 1,200 mg Documented by: Vancomycin HCl 1,250 mg/ (Sodium Chloride) 275 mls @ 200 mls/hr IV Q24H [facility] Stop: 02/22/21 19:59 Last Infusion: 02/17/21 21:34 Dose: Infused Documented by: Levofloxacin/Dextrose (Levaquin/D5w) 750 mg in 150 mls @ 100 mls/hr IV Q48H [facility]; Protocol Stop: 02/25/21 08:59 Last Admin: 02/18/21 08:36 Dose: 100 mls/hr Documented by: Lactobacillus Acidoph/Casei/Rhamnos (Advanced Probiotic 1250 Mg Capsule) 2 cap PO DAILY [facility] Stop: 03/17/21 20:54 Last Admin: 02/18/21 08:12 Dose: 2 cap Documented by: Melatonin (Melatonin 3 Mg Tab) 3 mg PO HS [facility] Stop: 03/19/21 20:59 Last Admin: 02/17/21 20:16 Dose: 3 mg Documented by: Metoprolol Tartrate (Metoprolol Tartrate 25 Mg Tab) 25 mg PO BID [facility] Stop: 03/16/21 21:08 Last Admin: 02/18/21 08:12 Dose: 25 mg Documented by: Miscellaneous Information (Vancomycin Consult Active) 1 ea N/A UD PRN PRN Reason: Consult Stop: 03/16/21 16:46 Multivitamins (Multivitamin Tab) 1 tab PO QAM [facility] Stop: 03/17/21 08:59 Last Admin: 02/18/21 08:12 Dose: 1 tab Documented by: Ondansetron HCl (Ondansetron Inj 2 Mg/Ml 2 Ml Vial) 4 mg IV Q6H PRN PRN Reason: Nausea Stop: 03/16/21 21:08 Polyethylene Glycol (Polyethylene (Miralax) 17 Gm Pack) 17 gm PO DAILY PRN PRN Reason: Constipation Stop: 03/16/21 21:08 Potassium Phosphate (Pot Phosphate Monobasic W/ Sod Tab) 1 tab PO QID [facility] Stop: 03/20/21 12:59 Pravastatin Sodium (Pravastatin Sod 40 Mg Tab) 40 mg PO HS [facility] Stop: 03/16/21 21:08 Last Admin: 02/17/21 20:17 Dose: 40 mg Documented by: Sertraline HCl (Sertraline Hcl 50 Mg Tablet) 50 mg PO QPM [facility] Stop: 03/16/21 21:08 Last Admin: 02/17/21 20:17 Dose: 50 mg Documented by: Sertraline HCl (Sertraline Hcl 100 Mg Tablet) 100 mg PO QPM [facility] Stop: 03/16/21 21:08 Last Admin: 02/17/21 20:17 Dose: 100 mg Documented by: Sodium Chloride (Sodium Chlor 7% 4 Ml Neb) 4 ml NEB BIDR [facility] Stop: 03/19/21 18:59 Last Admin: 02/18/21 07:37 Dose: 4 ml Documented by: Vitamin D (Cholecalciferol 1,000 Units 25 Mcg Tab) 2,000 units PO QAM [facility] Stop: 03/17/21 08:59 Last Admin: 02/18/21 08:12 Dose: 2,000 units Documented by: (1) COPD (chronic obstructive pulmonary disease) COPD type: unspecified COPD Qualified Code(s): J44.9 - Chronic obstructive pulmonary disease, unspecified (2) Bronchiectasis Bronchiectasis type: with acute exacerbation Qualified Code(s): J47.1 - Bronchiectasis with (acute) exacerbation (3) HTN (hypertension) Hypertension type: essential hypertension Qualified Code(s): I10 - Essential (primary) hypertension (4) Depression Depression Type: major depressive disorder Major depression recurrence: unspecified whether recurrent Active/Remission status: remission status unspecified Qualified Code(s): F32.9 - Major depressive disorder, single episode, unspecified
--- NOTE | 2021-02-18 11:29 | Discharge Summary ---
Date of Service February 18, 2021 Admission HPI Per Admitting Provider This is an 81yo F with a PMH of COPD with chronic respiratory failure requiring 2L O2 HS, bronchiectasis, suspected asthma, recurrent PNA since Covid in early November 2019, HTN, CKD, peripheral vascular disease, depression, memory loss/confusion, history of CVA, history of tobacco use and other medical problems listed below who presents with recurrent fevers over the past few weeks. Was hospitalized with Covid pneumonia in late October-early November 2019. Since then, has had left lower lobe consolidation on CT chest it is unclear whether pneumonia versus atelectasis versus post Covid changes. Follows with Dr. Waldron and DAGO Larsen of [facility] pulmonology. Has been treated 4 times since July for recurrent pneumonia, per pulm notes. Sputum culture from 01/23 growing moderate Pseudomonas aeruginosa and completed 7 day Levaquin course on 02/03/20. Has continued to have intermittent low grade fevers around 99 F, with fever of 102 today. Also more confused and hoarse since yesterday, per daughter at bedside. Denies significant sputum production but has a "junky" cough. Also complaining of muscle aches since yesterday. Was forgetful when playing cards ealier today with daughter, which is highly unusual for her. Has been taking all medications managed by family and using neb treatments, flutter valve and mucinex. Only daytime O2 pulse ox value <90% was noted yesterday at 88% and supplemental O2 was placed. Denies headache, neck stiffness, chest pain, SOB, nausea, vomiting, abdominal pain, dysuria, hematuria, diarrhea or constipation. No significant appetite changes. In ED, patient with temperature of 37.7 degrees Celsius, hypotension of high 80s/40s, HR 112, O2 saturation 93% on room air. CXR with interval improvement in left basilar airspace opacities which could represent a chronic pneumonitis. No new focal lung consolidations identified. Initial lactic acid 2.2, procal 0.78. Admission Exam Per Admitting Provider General Appearance: WD/WN, vitals as above, NAD, sitting up in bed, pleasant, conversing easily Head: normocephalic, atraumatic Eyes: normal inspection, PERRL, conjunctivae normal, anicteric sclerae ENT: external ear and nose normal, dry oropharynx mucous membranes Neck: normal visual inspection, trachea midline, no thyromegaly Respiratory: normal respiratory effort, bibasilar rales L>R, no wheeze or rhonchi. No accessory muscle use Cardiovascular: regular rate, rhythm, no murmur appreciated, normal peripheral pulses, no BLE edema. Vessels: no JVD Chest: normal inspection of chest Abdomen/GI: normal bowel sounds, soft, nontender, no hepatosplenomegaly Extremities/Musculoskeletal: no cyanosis or clubbing, extremities motor strength 5/5 Neurologic: PERRL, EOMI, accommodation nl, no face palsy, no dysarthria, CN's II-XI intact bilaterally and moves all extremities Psychiatric: A+Ox person & place, euthymic affect Skin: no rashes, normal color, warm/dry Principal Diagnosis Sepsis likely secondary to pneumonia History of pseudomonal pneumonia Discharge Exam General Appearance: WD/WN, laying in bed, in NAD, on RA Head: normocephalic, atraumatic Eyes: normal inspection, EOMI, PERRL, conjunctivae normal, anicteric sclerae ENT: external ear and nose normal, dry oropharynx mucous membranes Neck: normal visual inspection, trachea midline, no thyromegaly Respiratory: normal respiratory effort, diffuse mild rhonchi. No accessory muscle use Cardiovascular: regular rate, rhythm, no murmur appreciated, normal peripheral pulses, no BLE edema. Vessels: no JVD Chest: normal inspection of chest Abdomen/GI: normal bowel sounds, soft, nontender Extremities/Musculoskeletal: no cyanosis or clubbing, extremities motor strength 5/5 Neurologic: PERRL, EOMI, no face palsy, no dysarthria, CN's II-XI intact bilaterally and moves all extremities Psychiatric: A+Ox person & place, euthymic affect Skin: no rashes, normal color, warm/dry Discharge Data Allergies Allergy/AdvReac Type Severity Reaction Status Date / Time No Known Allergies Allergy Unverified 02/14/21 17:13 Consultations 02/14/21 17:21 ED Decision to Admit Stat Ordered Studies 02/14/21 17:19 CT angio chest PE protocol Stat IMPRESSION: 1. No evidence for pulmonary embolus. 2. No change in the 3.8 cm aneurysm at the thoracoabdominal aorta. No evidence for an aortic dissection. 3. Multiple new nodular and irregular airspace opacities within the left lower lobe. This favors a pneumonia. A 2-[address] follow-up recommended to ensure resolution. 4. Emphysema. 5. Scattered groundglass densities in the prior study have slightly improved. 6. Stable subcentimeter pulmonary nodules. Hospital Course (1) Sepsis: (2) Metabolic encephalopathy: (3) Recurrent pneumonia: This is an 81yo F with a PMH of COPD with chronic respiratory failure requiring 2L O2 HS, bronchiectasis, suspected asthma, recurrent PNA since Covid in early November 2019, HTN, CKD, peripheral vascular disease, depression, memory loss/confusion, history of CVA, history of tobacco use and other medical problems listed below who presents with recurrent fevers over the past few weeks and was found to have sepsis likely 2/2 pulmonary source. Recurrent PNA since covid pneumonia in early November 2019 now presenting with intermittent fevers, malaise, confusion Outpatient sputum culture from January 23 growing pseudomonas, treated with 7 d course of Levaquin In ED, patient meeting sepsis criteria with temp of 37.7 degrees C, BP high 80s/40s improving with IVF, HR 112, O2 saturation 93% on room air. Initial lactic acid 2.2, procal 0.78 CXR with interval improvement in left basilar airspace opacities which could represent a chronic pneumonitis Ddx: bacterial PNA, pneumonitis 2/2 covid infection in November, DVT/PE or other infectious source Vancomycin and cefepime ordered for empiric antibiotic coverage. Urine, blood and sputum cultures obtained. Urine culture negative Blood culture no growth in 48 hours CTA chest ordered to evaluate for PE and pna 1. No evidence for pulmonary embolus. 2. No change in the 3.8 cm aneurysm at the thoracoabdominal aorta. No evidence for an aortic dissection. 3. Multiple new nodular and irregular airspace opacities within the left lower lobe. This favors a pneumonia. A 2-[address] follow-up recommended to ensure resolution. 4. Emphysema. 5. Scattered groundglass densities in the prior study have slightly improved. 6. Stable subcentimeter pulmonary nodules. Empiric antibiotics changed to Levaquin given culture positive for Pseudomonas on January 23. Sputum culture ordered however patient was not able to produce sample during this hospital stay. Plan to discharge on Levaquin and follow-up with PCP and pulmonology. Currently patient is comfortable, breathing on room air, feeling much better continues to have a cough. (4) COPD (chronic obstructive pulmonary disease): (5) Bronchiectasis: Following with [facility] pulmonology at [facility] Continue neb treatment, flutter valve QID, mucinex , IS Received 10mg IV Dexamethasone in ED. No acute hypoxia or wheezing on exam, + mild rhonchi , +/- steroids as needed, now stopped Supplemental O2 HS Recommend follow-up with pulmonology (6) CKD (chronic kidney disease), stage III: Kidney function at baseline. Monitor with daily BMP (7) HTN (hypertension): Hypotensive in setting of sepsis. Continue Lopressor with hold parameters Current BP improved/ normal (8) Depression: Continue sertraline (9) Dementia: Fall precautions, will need redirection Increased risk of delirium DVT Ppx: SQ Lovenox Code status: FULL PCP: Dr. Hayes Dispo: Med/ tele Total Time Total Time Spent Total Time Spent (In Minutes): 37 Total Time Includes: Examination of the Patient, Discharge Planning and Medication Reconciliation Discharge Plan Discharge Items Patient Disposition: Home - Home Health Services Reason For Visit: SEPSIS PNEUMONIA Discharge Diagnosis: Sepsis likely secondary to pneumonia History of pseudomonal pneumonia Activity: Per Instructions section Non-emergency contact: Primary Care Provider and Pointer Machine Operator Call non-emergency contact if: you have any medication questions and your symptoms worsen Follow-up/Referrals: Milly Tay [Physician] - (Date & Time 03/03/2021 12:00 PM Provider DAGO العلي Department Pulmonary Medicine, [facility] ) Raz Hayes MD [Primary Care Provider] - (Date & Time 02/23/2021 10:40 AM Provider Raz Hayes MD Department Family Practice [facility] ) Diet: Regular Diet Texture: Easy to Chew Addtl Attending Provider Instructions: Follow-up with your primary care doctor, the appointment was scheduled for you for February 23. Also follow-up with pulmonology, the appointment was scheduled for you for March 03. Finish antibiotic course, Levaquin, as prescribed. Given prolonged antibiotic course, also recommend to take probiotics. Pending Studies at Discharge: No Stand-Alone Forms: My [employer], Smoking Cessation Medications and DC Order Prescriptions: New Advanced Probiotic 625 mg (10 billion cell) Capsule 2 cap PO DAILY Qty: 10 RF: 0 levofloxacin 750 mg tablet 750 mg PO DAILY 4 Days Qty: 4 RF: 0 Continued pravastatin 40 mg tablet 40 mg PO HS RF: 0 sertraline 100 mg tablet 100 mg PO QPM RF: 0 sertraline 50 mg tablet 50 mg PO QPM RF: 0 metoprolol tartrate 25 mg tablet 25 mg PO BID RF: 0 multivitamin Tablet 1 tab PO QAM RF: 0 ascorbic acid (vitamin C) [Vitamin C] 500 mg Tablet 500 mg PO QAM RF: 0 albuterol sulfate 2.5 mg /3 mL (0.083 %) solution for nebulization 2.5 mg inhalation UD RF: 0 Advair HFA 230-21 mcg/actuation HFA aerosol inhaler 2 puff INHALATION BID RF: 0 melatonin 5 mg Tablet 2.5 mg PO HS PRN (Reason: Sleep) RF: 0 cholecalciferol (vitamin D3) [Vitamin D3] 50 mcg (2,000 unit) Capsule 50 mcg PO QAM RF: 0 guaifenesin [Mucinex] 600 mg Tablet Extended Release 12hr 1,200 mg PO BID RF: 0 aspirin 81 mg Tablet 81 mg PO DAILY RF: 0 diclofenac sodium 1 % gel 1 ea TOPICAL QID PRN (Reason: Pain) RF: 0 ipratropium-albuterol 0.5 mg-3 mg(2.5 mg base)/3 mL Solution For Nebulization 3 ml INHALATION QID RF: 0 Discharge Orders: Discharge Order (Routine); Ordered 02/18/21 Ordered By: Lui Berkowitz Admission Data Admit Date/Time: 02/14/21 18:38 Attending Provider: Lui Berkowitz Admit Provider: Aleyda Rojas Primary Care Provider: Raz Hayes Other Providers: Aleyda Rojas ; BrennonmsDhruv sanchez [facility]
[2021-02-18] MEDS ORDERED: POT PHOSPHATE MONOBASIC W/ SOD TAB PO SCH (13:00)
[2021-02-18] MEDS ORDERED: VANCOMYCIN TROUGH ONE (19:30)
== END 2021-02-18 13:12 | disposition home health service (06) | DRG 871 ==
LOC: ED 15:01 → SUATTDRO 18:38 → 2S 18:38 → 2N 02-15 20:51

== ENCOUNTER 2021-08-14 06:06 | Inpatient (IN) ==
[2021-08-14] MEDS ORDERED: ALBUTEROL 0.083% NEBU SOLN 3 ML VIAL NEB STA (06:58)
[2021-08-14] MEDS ORDERED: dexAMETHasone 6 MG in SYRINGE 0 ML IV ONE (06:58)
[2021-08-14 06:59] LABS: Albumin Level 3.1 gm/dl (3.4-5.0); BUN Creatinine Ratio 24.2 (10-20); Calcium 8.5 mg/dl (8.5-10.1); Creatinine Clr Calc Pharmacy 40.3 ml/min; Est GFR (Non-African American) 60.4 ml/min; Hematocrit (blood only) 37.9 % (37-47); Hemoglobin 11.8 g/dL (12.0-16.0); Mean Corpuscular Hemoglobin 29.8 pg (25-34); Mean Corpuscular Hgb Conc 31.1 g/dL (32-36); Mean Corpuscular Volume 95.7 fL (80-100); Mean Platelet Volume 10.3 fL (7.4-10.4); Platelet Count 92 K/uL (130-400); Potassium 4.4 mmol/L (3.5-5.1); RDW Coefficient of Variation 15.1 % (11.5-14.5); RDW Standard Deviation 53.2 fL (36.4-46.3); Red Blood Count 3.96 M/uL (4.2-5.4); White Blood Count 6.36 K/uL (4.8-10.8)
[2021-08-14] MEDS ORDERED: ACETAMINOPHEN 325 MG TAB PO STA (06:59)
--- NOTE | 2021-08-14 07:03 | Emergency Department Note ---
Impression & Plan Thrombocytopenia, Anemia, High serum chloride, Viral URI, Non-ST elevation NE (NSTEMI) ED Provider Note NAME: MALISSA CORRAL AGE: 81 SEX: F : 1940 ARRIVES VIA: Ambulance INFORMANT: Patient ED PROVIDER(S): Agustin Rodarte DO CHIEF COMPLAINT: shortness of breath HPI: Patient is 81-year-old female who has a past medical history of CVA, CKD, COPD, who presents to the ER for shortness of breath associated with cough and congestion. Symptoms started last . She has been feeling hot and cold over this past weekend. She does have COPD and chronically on 2 L nasal cannula. She previously had Covid. She has not been vaccinated since then. She has been around family members with RSV and rhinovirus. She denies any belly pain, nausea, vomiting, or diarrhea. No dysuria, urgency, or frequency. She denies any chest pain. No other exacerbating or remitting factors. ROS: See above HPI for pertinent positives & negatives. A total of 10 systems reviewed and were otherwise negative. PAST MEDICAL HISTORY:See Below PAST SURGICAL HISTORY:See Below FAMILY HISTORY:See Below SOCIAL HISTORY:See Below HOME MEDICATIONS:See Below ALLERGIES:See Below VITALS:See Below PHYSICAL EXAMINATION: GENERAL: Sitting up in bed, alert, well appearing, well nourished, no distress, non-toxic EYE EXAM: normal conjunctiva. PERRL and EOM's grossly intact. OROPHARYNX: no exudate, no erythema, lips, buccal mucosa, and tongue normal and mucous membranes are moist NECK: supple, no nuchal rigidity, no adenopathy, non-tender LUNGS: Clear to auscultation. Normal chest wall mechanics HEART: no murmurs, S1 normal and S2 normal ABDOMEN: abdomen soft, non-tender, normo-active bowel sounds, no masses, no rebound or guarding. BACK: Back is symmetrical on inspection and there is no deformity, no midline tenderness, no CVA tenderness. SKIN: no rashes and no bruising UPPER EXTREMITIES: upper extremities are grossly normal. LOWER EXTREMITIES: No pitting edema. Calves cervical bilateral NEURO EXAM: Normal sensorium, cranial nerves II-XII grossly intact, normal spe ech, no gross weakness of arms, no gross weakness of legs. MEDICAL DECISION MAKING: Patient is an 81-year-old female who presents ER for shortness of breath cough and runny nose since . Patient is febrile. Does have a history of COPD chronically on 2 L nasal cannula. Been around multiple sick contacts with RSV and rhinovirus. IV was established blood was obtained. Labs show no sign of leukocytosis with a mild anemia of 11. There is a mild thrombocytopenia. With slightly chloride 109. LFTs bilirubin is unremarkable. Troponin was elevated. Pro-Stuart was UA was. Covid was negative. Chest x-ray without any focal infiltrate. Patient was updated bedside. Discussed with hospitalist admitted for further work-up. Patient was given flu steroid needs as well as a neb ER. Triage Nursing notes reviewed. Limited review of prior medical records performed Vital Signs: reviewed and remarkable for febrile, tachypneic chronically on 2 L Differential diagnosis: Differential diagnoses includes but is not limited to pneumonia, bronchitis, COPD/Asthma exacerbation, pneumothorax, pulmonary embolism, congestive heart failure, acute coronary syndrome ER treatment provided: See below Diagnostics interpreted by me: ECG: A. fib rate of 100 Left axis No PVCs QTC 456 Cardiac Monitoring: An order was placed for continuous cardiac monitoring. The monitor shows a rate of 98 with sinus rhythm. Laboratory studies: As stated above and show below. Imaging studies: See below Consultation(s): Discussed with hospitalist for further evaluation Procedures: none Critical Care: None Past Med/Surg History Medical History AAA (abdominal aortic aneurysm) "s/p repair of ruptured AAA in 2010" Bronchiectasis CKD (chronic kidney disease), stage III COPD (chronic obstructive pulmonary disease) Dementia Depression Female stress incontinence H/O: CVA (cerebrovascular accident) Hip fracture History of COVID-19 History of pulmonary embolism HTN (hypertension) Hyperlipidemia Peripheral vascular disease Pulmonary nodule Recurrent pneumonia Tobacco use disorder Surgical History S/P AAA repair "s/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 Desir with bifurcated graft, left femoral thromboendarterectomy with patch angioplasty, right femoral thromboendarterectomy, and right iliofemoral bypass" S/P laparotomy "10/16/11- abdominal exploration, wound vac placement; 10/18/11- abdominal washout and closure. " S/P ORIF (open reduction internal fixation) fracture "left hip" Family History Other Diabetes Heart disease Social History (Updated 08/14/21 @ 10:01 by Shruti Markham PA-C) Smoking Status: Former smoker Tobacco Type: Cigarettes Smoking End Date: 2019. 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 Beliefs That Will Affect Care: None marital status: / marital status details: of COVID in Nov 2020 Current Living Situation: Family Feels Safe at Home: Yes Assistive Devices: Glasses, Walker and Wheelchair Allergies Allergies Allergy/AdvReac Type Severity Reaction Status Date / Time No Known Allergies Allergy Unverified 08/14/21 08:41 Home Meds Home Medications Medication Instructions Recorded Confirmed pravastatin 40 mg tablet 40 mg PO HS 09/21/19 08/14/21 sertraline 100 mg tablet 100 mg PO QPM 09/21/19 08/14/21 sertraline 50 mg tablet 50 mg PO QPM 09/21/19 08/14/21 albuterol sulfate 2.5 mg INHALATION UD 11/01/20 08/14/21 aspirin 81 mg tablet 81 mg PO DAILY 02/14/21 08/14/21 cholecalciferol (vitamin D3) 50 50 mcg PO QAM 02/14/21 08/14/21 mcg (2,000 unit) capsule (Vitamin D3) diclofenac sodium 1 % topical gel 1 ea TOPICAL QID PRN 02/14/21 08/14/21 guaifenesin 600 mg tablet, 1,200 mg PO BID 02/14/21 08/14/21 extended release 12 hr (Mucinex) fluticasone propionate 110 2 puff INHALATION BID 08/14/21 08/14/21 mcg/actuation HFA aerosol inhaler (Flovent HFA) furosemide 20 mg tablet 20 mg PO DAILY PRN 08/14/21 08/14/21 tiotropium bromide 2.5 2 puff INHALATION DAILY 08/14/21 08/14/21 mcg/actuation mist for inhalation (Spiriva Respimat) voriconazole 200 mg tablet 200 mg PO QAM 08/14/21 08/14/21 voriconazole 200 mg tablet 400 mg PO QPM 08/14/21 08/14/21 Results & Data (ED) Vital Signs Vital Signs - 24 hr 08/14/21 06:18 08/14/21 06:32 08/14/21 06:33 Temperature 38.0 C H Temperature Source Oral Pulse Rate 90 90 92 H Pulse Rate [Apical] Pulse Rate from SpO2 Sensor 92 H 91 H Pulse Rhythm Regular Respiratory Rate 31 H 28 H 26 H Respiratory Effort / Characteristics Labored Respiratory Depth Deep Respiratory Pattern Tachypnea Blood Pressure 122/77 127/79 122/77 Blood Pressure [Right Arm] Blood Pressure Mean 92 95 92 Blood Pressure Mean [Right Arm] Blood Pressure Position Sitting Pulse Oximetry 98 99 100 Oxygen Delivery Method Nasal Cannula Oxygen Flow Rate 2 Sepsis Recent Fever Within 48 Hours Yes Sepsis New/Unexplained Change in Mental Status N/A Sepsis Action Taken by Nursing No Action Required 08/14/21 07:00 08/14/21 07:07 08/14/21 07:16 Temperature Temperature Source Pulse Rate 95 H Pulse Rate [Apical] 99 H 76 Pulse Rate from SpO2 Sensor 95 H Pulse Rhythm Respiratory Rate 27 H 20 25 H Respiratory Effort / Characteristics Spontaneous Labored Respiratory Depth Respiratory Pattern Blood Pressure 139/78 Blood Pressure [Right Arm] 139/78 Blood Pressure Mean 98 Blood Pressure Mean [Right Arm] 98 Blood Pressure Position Pulse Oximetry 96 97 95 Oxygen Delivery Method Nasal Cannula Nasal Cannula Oxygen Flow Rate 2 2 Sepsis Recent Fever Within 48 Hours Sepsis New/Unexplained Change in Mental Status Sepsis Action Taken by Nursing 08/14/21 07:30 08/14/21 07:49 08/14/21 08:00 Temperature Temperature Source Pulse Rate 119 H Pulse Rate [Apical] 79 Pulse Rate from SpO2 Sensor 96 H Pulse Rhythm Respiratory Rate 27 H 16 24 Respiratory Effort / Characteristics Non-Labored Respiratory Depth Normal Respiratory Pattern Blood Pressure 115/71 100/59 L Blood Pressure [Right Arm] 106/66 Blood Pressure Mean 85 72 Blood Pressure Mean [Right Arm] 79 Blood Pressure Position Pulse Oximetry 92 98 Oxygen Delivery Method Nasal Cannula Oxygen Flow Rate 2 Sepsis Recent Fever Within 48 Hours Sepsis New/Unexplained Change in Mental Status Sepsis Action Taken by Nursing 08/14/21 08:30 08/14/21 09:00 08/14/21 09:30 Temperature 36.8 C Temperature Source Oral Pulse Rate 61 98 H Pulse Rate [Apical] 97 H Pulse Rate from SpO2 Sensor 96 H 90 98 H Pulse Rhythm Respiratory Rate 22 17 22 Respiratory Effort / Characteristics Respiratory Depth Normal Respiratory Pattern Blood Pressure 88/65 L 96/59 L Blood Pressure [Right Arm] 96/59 L Blood Pressure Mean 72 71 Blood Pressure Mean [Right Arm] 71 Blood Pressure Position Pulse Oximetry 97 97 96 Oxygen Delivery Method Nasal Cannula Oxygen Flow Rate 2 Sepsis Recent Fever Within 48 Hours Sepsis New/Unexplained Change in Mental Status Sepsis Action Taken by Nursing 08/14/21 10:00 08/14/21 10:30 08/14/21 11:00 Temperature Temperature Source Pulse Rate 94 H 94 H 93 H Pulse Rate [Apical] 94 H Pulse Rate from SpO2 Sensor 95 H 95 H 93 H Pulse Rhythm Respiratory Rate 20 17 19 Respiratory Effort / Characteristics Non-Labored Respiratory Depth Normal Respiratory Pattern Blood Pressure 94/56 L 102/57 L 101/60 Blood Pressure [Right Arm] 94/56 L Blood Pressure Mean 68 72 73 Blood Pressure Mean [Right Arm] 68 Blood Pressure Position Pulse Oximetry 97 97 97 Oxygen Delivery Method Nasal Cannula Oxygen Flow Rate 2 Sepsis Recent Fever Within 48 Hours Sepsis New/Unexplained Change in Mental Status Sepsis Action Taken by Nursing 08/14/21 11:31 08/14/21 12:00 08/14/21 12:30 Temperature Temperature Source Pulse Rate 93 H 92 H 91 H Pulse Rate [Apical] Pulse Rate from SpO2 Sensor 93 H 92 H 99 H Pulse Rhythm Respiratory Rate 18 18 21 Respiratory Effort / Characteristics Respiratory Depth Respiratory Pattern Blood Pressure 110/62 108/59 L 109/63 Blood Pressure [Right Arm] Blood Pressure Mean 78 75 78 Blood Pressure Mean [Right Arm] Blood Pressure Position Pulse Oximetry 98 97 98 Oxygen Delivery Method Oxygen Flow Rate Sepsis Recent Fever Within 48 Hours Sepsis New/Unexplained Change in Mental Status Sepsis Action Taken by Nursing 08/14/21 13:00 Temperature Temperature Source Pulse Rate 93 H Pulse Rate [Apical] Pulse Rate from SpO2 Sensor 93 H Pulse Rhythm Respiratory Rate 19 Respiratory Effort / Characteristics Respiratory Depth Respiratory Pattern Blood Pressure 110/60 Blood Pressure [Right Arm] Blood Pressure Mean 76 Blood Pressure Mean [Right Arm] Blood Pressure Position Pulse Oximetry 96 Oxygen Delivery Method Oxygen Flow Rate Sepsis Recent Fever Within 48 Hours Sepsis New/Unexplained Change in Mental Status Sepsis Action Taken by Nursing Laboratory Data Result diagrams: 08/14/21 06:29 08/14/21 06:29 Lab Results 08/14/21 08/14/21 08/14/21 Range/Units 06:29 06:29 06:29 WBC 6.36 (4.8-10.8) K/uL RBC 3.96 L (4.2-5.4) M/uL Hgb 11.8 L (12.0-16.0) g/dL Hct 37.9 (37-47) % MCV 95.7 (80-100) fL MCH 29.8 (25-34) pg MCHC 31.1 L (32-36) g/dL RDW Std Deviation 53.2 H (36.4-46.3) fL RDW Coeff of Wayne 15.1 H (11.5-14.5) % Plt Count 92 L (130-400) K/uL MPV 10.3 (7.4-10.4) fL Immature Gran % (Auto) 0.0 % Neut % (Auto) 89.0 % Lymph % (Auto) 4.2 % [place] % (Auto) 6.1 % Eos % (Auto) 0.5 % Baso % (Auto) 0.2 % Neut # (Auto) 5.66 (1.4-6.5) K/uL Lymph # (Auto) 0.27 L (1.2-3.4) K/uL [place] # (Auto) 0.39 (0.11-0.59) K/uL Eos # (Auto) 0.03 (0-0.5) K/uL Baso # (Auto) 0.01 (0-0.2) K/uL Immature Gran # (Auto) 0.00 (0.00-0.02) K/uL APTT 22.5 (21.0-31.0) Seconds PTT Ratio 0.9 Sodium 139 (136-145) mmol/L Potassium 4.4 (3.5-5.1) mmol/L Chloride 109 H (98-107) mmol/L Carbon Dioxide 26 (21-32) mmol/L Anion Gap 4.0 (3-11) BUN 22 H (7-18) mg/dl Creatinine 0.89 (0.6-1.2) mg/dl Est Cr Clr Drug Dosing 40.3 ml/min Est GFR ( Amer) 70.0 ml/min Est GFR (Non-Af Amer) 60.4 ml/min BUN/Creatinine Ratio 24.2 H (10-20) Glucose 114 H (70-99) mg/dl Lactate (0.4-2.0) mmol/L Calcium 8.5 (8.5-10.1) mg/dl Total Bilirubin 0.3 (0.2-1) mg/dl AST 84 H (15-37) U/L ALT 65 (12-78) U/L Alkaline Phosphatase 295 H (45-117) U/L Troponin I 0.115 H* (0-0.045) ng/ml Total Protein 6.9 (6.4-8.2) gm/dl Albumin 3.1 L (3.4-5.0) gm/dl Globulin 3.8 (2.5-4.0) gm/dl Albumin/Globulin Ratio 0.8 L (0.9-2) Lipase 43 L (73-393) U/L Procalcitonin (0-0.5) ng/ml Urine Color Urine Appearance (Clear) Urine pH (4.5-7.5) Ur Specific [place] (1.000-1.030) Urine Protein (Negative) Urine Glucose (UA) (Negative) Urine Ketones (Negative) Urine Blood (Negative) Urine Nitrite (Negative) Urine Bilirubin (Negative) Urine Urobilinogen (Negative) Ur Leukocyte Esterase (Negative) Urine WBC (Auto) (0-5) /hpf Urine RBC (Auto) (0-4) /hpf U Hyaline Cast (Auto) (0-5) /lpf U Epithel Cells (Auto) (0-5) /lpf Urine Bacteria (Auto) (Negative) COVID-19 Eval Order SARS-CoV-2 (PCR) (Negative) 08/14/21 08/14/21 08/14/21 Range/Units 06:29 06:29 07:03 WBC (4.8-10.8) K/uL RBC (4.2-5.4) M/uL Hgb (12.0-16.0) g/dL Hct (37-47) % MCV (80-100) fL MCH (25-34) pg MCHC (32-36) g/dL RDW Std Deviation (36.4-46.3) fL RDW Coeff of Wayne (11.5-14.5) % Plt Count (130-400) K/uL MPV (7.4-10.4) fL Immature Gran % (Auto) % Neut % (Auto) % Lymph % (Auto) % [place] % (Auto) % Eos % (Auto) % Baso % (Auto) % Neut # (Auto) (1.4-6.5) K/uL Lymph # (Auto) (1.2-3.4) K/uL [place] # (Auto) (0.11-0.59) K/uL Eos # (Auto) (0-0.5) K/uL Baso # (Auto) (0-0.2) K/uL Immature Gran # (Auto) (0.00-0.02) K/uL APTT (21.0-31.0) Seconds PTT Ratio Sodium (136-145) mmol/L Potassium (3.5-5.1) mmol/L Chloride (98-107) mmol/L Carbon Dioxide (21-32) mmol/L Anion Gap (3-11) BUN (7-18) mg/dl Creatinine (0.6-1.2) mg/dl Est Cr Clr Drug Dosing ml/min Est GFR ( Amer) ml/min Est GFR (Non-Af Amer) ml/min BUN/Creatinine Ratio (10-20) Glucose (70-99) mg/dl Lactate (0.4-2.0) mmol/L Calcium (8.5-10.1) mg/dl Total Bilirubin (0.2-1) mg/dl AST (15-37) U/L ALT (12-78) U/L Alkaline Phosphatase (45-117) U/L Troponin I (0-0.045) ng/ml Total Protein (6.4-8.2) gm/dl Albumin (3.4-5.0) gm/dl Globulin (2.5-4.0) gm/dl Albumin/Globulin Ratio (0.9-2) Lipase (73-393) U/L Procalcitonin (0-0.5) ng/ml Urine Color Yellow Urine Appearance Clear (Clear) Urine pH 5.0 (4.5-7.5) Ur Specific [place] 1.021 (1.000-1.030) Urine Protein 2+ H (Negative) Urine Glucose (UA) Negative (Negative) Urine Ketones Negative (Negative) Urine Blood 3+ H (Negative) Urine Nitrite Negative (Negative) Urine Bilirubin Negative (Negative) Urine Urobilinogen Negative (Negative) Ur Leukocyte Esterase Trace H (Negative) Urine WBC (Auto) 1-5 (0-5) /hpf Urine RBC (Auto) 0-4 (0-4) /hpf U Hyaline Cast (Auto) 1-5 (0-5) /lpf U Epithel Cells (Auto) 5-10 H (0-5) /lpf Urine Bacteria (Auto) Negative (Negative) COVID-19 Eval Order Covid19 at [facility] SARS-CoV-2 (PCR) NEGATIVE (Negative) 08/14/21 08/14/21 08/14/21 Range/Units 09:50 09:50 12:29 WBC (4.8-10.8) K/uL RBC (4.2-5.4) M/uL Hgb (12.0-16.0) g/dL Hct (37-47) % MCV (80-100) fL MCH (25-34) pg MCHC (32-36) g/dL RDW Std Deviation (36.4-46.3) fL RDW Coeff of Wayne (11.5-14.5) % Plt Count (130-400) K/uL MPV (7.4-10.4) fL Immature Gran % (Auto) % Neut % (Auto) % Lymph % (Auto) % [place] % (Auto) % Eos % (Auto) % Baso % (Auto) % Neut # (Auto) (1.4-6.5) K/uL Lymph # (Auto) (1.2-3.4) K/uL [place] # (Auto) (0.11-0.59) K/uL Eos # (Auto) (0-0.5) K/uL Baso # (Auto) (0-0.2) K/uL Immature Gran # (Auto) (0.00-0.02) K/uL APTT (21.0-31.0) Seconds PTT Ratio Sodium (136-145) mmol/L Potassium (3.5-5.1) mmol/L Chloride (98-107) mmol/L Carbon Dioxide (21-32) mmol/L Anion Gap (3-11) BUN (7-18) mg/dl Creatinine (0.6-1.2) mg/dl Est Cr Clr Drug Dosing ml/min Est GFR ( Amer) ml/min Est GFR (Non-Af Amer) ml/min BUN/Creatinine Ratio (10-20) Glucose (70-99) mg/dl Lactate 0.6 (0.4-2.0) mmol/L Calcium (8.5-10.1) mg/dl Total Bilirubin (0.2-1) mg/dl AST (15-37) U/L ALT (12-78) U/L Alkaline Phosphatase (45-117) U/L Troponin I 0.525 H* (0-0.045) ng/ml Total Protein (6.4-8.2) gm/dl Albumin (3.4-5.0) gm/dl Globulin (2.5-4.0) gm/dl Albumin/Globulin Ratio (0.9-2) Lipase (73-393) U/L Procalcitonin 0.11 (0-0.5) ng/ml Urine Color Urine Appearance (Clear) Urine pH (4.5-7.5) Ur Specific [place] (1.000-1.030) Urine Protein (Negative) Urine Glucose (UA) (Negative) Urine Ketones (Negative) Urine Blood (Negative) Urine Nitrite (Negative) Urine Bilirubin (Negative) Urine Urobilinogen (Negative) Ur Leukocyte Esterase (Negative) Urine WBC (Auto) (0-5) /hpf Urine RBC (Auto) (0-4) /hpf U Hyaline Cast (Auto) (0-5) /lpf U Epithel Cells (Auto) (0-5) /lpf Urine Bacteria (Auto) (Negative) COVID-19 Eval Order SARS-CoV-2 (PCR) (Negative) Administered Medications Methylprednisolone (Methylprednisolone 40 Mg/Ml Vial) 40 mg IV Q8H ALEX Stop: 09/13/21 10:44 Last Admin: 08/14/21 11:08 Dose: 40 mg Documented by: [id number] Discontinued Medications Acetaminophen (Acetaminophen 325 Mg Tab) 650 mg PO NOW STA Stop: 08/14/21 07:00 Last Admin: 08/14/21 07:22 Dose: 650 mg Documented by: [id number] Albuterol (Albuterol 0.083% Nebu Soln 3 Ml Vial) 2.5 mg NEB NOW STA Stop: 08/14/21 06:59 Last Admin: 08/14/21 07:15 Dose: 2.5 mg Documented by: [id number] Dexamethasone 6 mg/ Syringe 1.5 mls @ 1 mls/min IV ONE ONE Stop: 08/14/21 06:59 Last Admin: 08/14/21 09:08 Dose: 1 mls/min Documented by: [id number] Imaging Data Radiologist's Impression: Chest X-Ray 08/14/21 06:42 XR chest 1V portable INDICATION: MN ^Y ^Chest Pain . TECHNIQUE: Single frontal radiograph of the chest was obtained. Comparison: Comparison is made to chest one view 02/16/2021 FINDINGS: No lines and tubes are seen. Calcified aortic knob is seen. The lungs are clear. No evidence of pleural effusion or pneumothorax. Old healed rib fractures are noted on the right. Degenerative changes are seen in the bilateral glenohumeral joints. IMPRESSION: No acute chest disease. ACT 112: Negative or not required by law. Electronically signed by: Richie Maradiaga M.D. 08/14/2021 7:39 AM Discharge Plan Visit Data Chief Complaint: Shortness of Breath/Dyspnea Stated Complaint: SOB ED Provider: Agustin Rodarte Discharge Problem: Thrombocytopenia, Anemia, High serum chloride, Viral URI, Non-ST elevation NE (NSTEMI) Forms Stand Alone Forms: My [facility] Prescriptions Prescriptions: No Action pravastatin 40 mg tablet 40 mg PO HS RF: 0 sertraline 100 mg tablet 100 mg PO QPM RF: 0 sertraline 50 mg tablet 50 mg PO QPM RF: 0 albuterol sulfate 2.5 mg /3 mL (0.083 %) solution for nebulization 2.5 mg inhalation UD RF: 0 cholecalciferol (vitamin D3) [Vitamin D3] 50 mcg (2,000 unit) Capsule 50 mcg PO QAM RF: 0 guaifenesin [Mucinex] 600 mg Tablet Extended Release 12hr 1,200 mg PO BID RF: 0 aspirin 81 mg Tablet 81 mg PO DAILY RF: 0 diclofenac sodium 1 % gel 1 ea TOPICAL QID PRN (Reason: Pain) RF: 0 furosemide 20 mg tablet 20 mg PO DAILY PRN (Reason: Fluid Retention) RF: 0 Flovent HFA 110 mcg/actuation HFA aerosol inhaler 2 puff INHALATION BID RF: 0 voriconazole 200 mg tablet 400 mg PO QPM RF: 0 voriconazole 200 mg tablet 200 mg PO QAM RF: 0 Spiriva Respimat 2.5 mcg/actuation mist 2 puff INHALATION DAILY RF: 0 Referrals Referrals: Raz Hayes MD [Primary Care Provider] - Discharge Problem: Anemia Qualifiers: Anemia type: unspecified type Qualified Code(s): D64.9 - Anemia, unspecified
[2021-08-14 07:04] LABS: Partial Thromboplastin Ratio 0.9; Partial Thromboplastin Time 22.5 Seconds (21.0-31.0)
[2021-08-14 07:12] LABS: Basophils # (auto) 0.01 K/uL (0-0.2); Basophils % (auto) 0.2 %; Eosinophils # (auto) 0.03 K/uL (0-0.5); Eosinophils % (auto) 0.5 %; Lymphocytes # (auto) 0.27 K/uL (1.2-3.4); Lymphocytes % (auto) 4.2 %; Monocytes # (auto) 0.39 K/uL (0.11-0.59); Monocytes % (auto) 6.1 %; Neutrophils # (auto) 5.66 K/uL (1.4-6.5)
[2021-08-14 07:14] LABS: Albumin Globulin Ratio 0.8 (0.9-2); Bilirubin,Total 0.3 mg/dl (0.2-1); Globulin 3.8 gm/dl (2.5-4.0); Total Protein 6.9 gm/dl (6.4-8.2); Troponin I 0.115 ng/ml (0-0.045)
[2021-08-14 07:21] LABS: Appearance Urine Clear (Clear); Bacteria Urine Automated Negative (Negative); Bilirubin Urine Negative (Negative); Blood Urine 3+ (Negative); Color Urine Yellow; Glucose Urine UA Negative (Negative); Ketones Urine Negative (Negative); Leukocyte Esterase Urine Trace (Negative); Nitrite Urine Negative (Negative); Protein Urine 2+ (Negative); RBC Urine Automated 0-4 /hpf (0-4); Specific Gravity Urine 1.021 (1.000-1.030); Urobilinogen Urine Negative (Negative)
--- NOTE | 2021-08-14 07:40 | XRay Report ---
XR chest 1V portable INDICATION: MN ^Y ^Chest Pain . TECHNIQUE: Single frontal radiograph of the chest was obtained. Comparison: Comparison is made to chest one view 02/16/2021 FINDINGS: No lines and tubes are seen. Calcified aortic knob is seen. The lungs are clear. No evidence of pleur al effusion or pneumothorax. Old healed rib fractures are noted on the right. Degenerative changes ar e seen in the bilateral glenohumeral joints. IMPRESSION: No acute chest disease. ACT 112: Negative or not required by law. Electronically signed by: Richie Maradiaga M.D. 08/14/2021 7:39 AM
[2021-08-14] MEDS ORDERED: FLUTICASONE FUROATE 200MCG 14 PUFFS/INHALER INH SCH (09:00)
--- NOTE | 2021-08-14 09:44 | History & Physical Report ---
Date of Service August 14, 2021 Assessment & Plan (1) COPD exacerbation: (2) Elevated troponin: (3) Pulmonary nodule: (4) CKD (chronic kidney disease), stage III: (5) HTN (hypertension): (6) Hyperlipidemia: (7) Depression: Plan: Procalcitonin pending - pt febrile but no leukocytosis. Exposed to rhinovirus and RSV - will check biofire, initial COVID was negative. - ATC Duonebs with additional Q2 hrs PRN - IV solumedrol - Holding antibiotics until additional labs back - Daily labs - Monitor in PCU, serial troponin, EKG in AM - Continue home meds as appropriate - Blood, sputum, and urine cultures - Fall and aspiration precautions - Pulmonary consult - consider repeat CT chest based on prior findings - Palliative care consult - per dtr, goal is to keep pt home as long as possible and avoid placement. The family is unsure if they wish to pursue work-up for potential malignancy. DVT Prophylaxis: Heparin subQ BID Code Status: Full code Pt seen and reviewed with attending physician, Dr. Torres. Plan of care discussed and as outlined above. Discussed plan with daughter, Mary, at the bedside. All questions answered. Lei Markham PA-C History of Present Illness Chief Complaint: Fever and shortness of breath Primary Care Provider: Raz Hayes MD This is an 81 y/o female with a PMH of O2-dependent COPD, prior COVID pneumonia in Nov 2020 with recurrent episodes of pneumonia since then, CKD, bronchiectasis, depression, dementia, AAA, HTN, dyslipidemia, suspected asthma, and PVD who presents to the ED with progressive weakness, dyspnea, and new-onset of fever. History from the patient is limited due to dementia and confusion so the majority of the history is from the pt's daughter, Mary, and the chart, which was extensively reviewed. Pt was admitted to this facility in Nov 2020 with COVID pneumonia, which was treated with remedesivir and dexamethasone. Since then, she has had 3-4 episodes of recurrent pneumonia including one in late January/early February for which she was admitted. There was concern for aspiration so she underwent video swallow in April and subsequent speech evaluation in May. However, this work-up did not show aspiration at that time although there was some evidence of oropharyngeal and laryngeal dysphagia. Pt has not yet received the COVID vaccine. She was noted to have concerning RUL nodules during her last admission and was scheduled for a f/u outpatient CT chest. This was done on 04/18/21 and showed: "IMPRESSION: Partial resolution of left lower lobe consolidative opacity. Interval enlargement of additional spiculated right upper lobe nodule and increased density of right apical nodule, suspicious for neoplasia. Multiple additional indeterminate right lower lobe ground-glass parenchymal changes. Recommend PET/CT for further evaluation." Her outpatient pulmonary provider recommended bronchoscopy with EBUS for further evaluation. However, her family was unsure if they wanted to pursue this with pt's advanced age and underlying conditions as they do not think that they would want to pursue additional treatment if malignancy is identified. Pt's pulm appt to discuss in June was rescheduled for August. 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 Her current symptoms started 3-4 days ago with a runny nose and slight worsening of chronic cough. The cough has gradually worsened since then. Sputum at baseline is clear to yellow-tinged but pt/her daughter have noticed a tinge of blood in the past day or two. Over the past 24-48 hours, pt has been more short of breath and increasingly weak and fatigued. Last night, pt's daughter think that she developed a fever. When she ambulated to the bathroom off O2, her sats dropped to 81%, which is apparently unusual for her. Family had tried to move up her home visit from tomorrow to today but due to pt's worsening condition, they brought her to the ED for evaluation instead. Allergies Allergy/AdvReac Type Severity Reaction Status Date / Time No Known Allergies Allergy Unverified 08/14/21 08:41 Home Medications Medication Instructions Recorded Confirmed Type pravastatin 40 mg tablet 40 mg PO HS 09/21/19 08/14/21 History sertraline 100 mg tablet 100 mg PO QPM 09/21/19 08/14/21 History sertraline 50 mg tablet 50 mg PO QPM 09/21/19 08/14/21 History albuterol sulfate 2.5 mg INHALATION UD 11/01/20 08/14/21 History aspirin 81 mg tablet 81 mg PO DAILY 02/14/21 08/14/21 History cholecalciferol (vitamin D3) 50 50 mcg PO QAM 02/14/21 08/14/21 History mcg (2,000 unit) capsule (Vitamin D3) diclofenac sodium 1 % topical gel 1 ea TOPICAL QID PRN 02/14/21 08/14/21 History guaifenesin 600 mg tablet, 1,200 mg PO BID 02/14/21 08/14/21 History extended release 12 hr (Mucinex) furosemide 20 mg tablet 20 mg PO DAILY PRN 08/14/21 08/14/21 History acetylcysteine 200 mg/mL (20 %) 5 ml INHALATION Q12R #30 ml 08/17/21 Rx solution sodium chloride 7 % for 4 ml NEB BIDR #240 ml 08/17/21 Rx nebulization umeclidinium 62.5 mcg-vilanterol 1 ea INHALATION DAILY #14 ea 08/17/21 Rx 25 mcg/actuation powdr for inhalation (Anoro Ellipta) L.acidop,casei,lactis,rham-B.lact,jackie 2 cap PO DAILY 7 Days #14 cap 08/24/21 Rx 625 mg (10 billion cell) capsule (Advanced Probiotic) amoxicillin 875 mg-potassium 1 tab PO BIDM 7 Days #14 tab 08/24/21 Rx clavulanate 125 mg tablet (Augmentin) Past Med/Surg History Medical History (Updated 08/15/21 @ 08:55 by DAGO Ray) AAA (abdominal aortic aneurysm) "s/p repair of ruptured AAA in 2010" Bronchiectasis CKD (chronic kidney disease), stage III COPD (chronic obstructive pulmonary disease) Dementia Depression Female stress incontinence H/O: CVA (cerebrovascular accident) Hip fracture History of COVID-19 History of pulmonary embolism HTN (hypertension) Hyperlipidemia Palliative care encounter Peripheral vascular disease Pulmonary nodule Recurrent pneumonia Tobacco use disorder Weakness Surgical History S/P AAA repair "s/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 Desir with bifurcated graft, left femoral thromboendarterectomy with patch angioplasty, right femoral thromboendarterectomy, and right iliofemoral bypass" S/P laparotomy "10/16/11- abdominal exploration, wound vac placement; 10/18/11- abdominal washout and closure. 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: No Beliefs That Will Affect Care: None marital status: / marital status details: of COVID in Nov 2020 Current Living Situation: Family Feels Safe at Home: Yes Assistive Devices: Glasses, Oxygen - Continuous and Walker Review of Systems Review of Systems: Unobtainable due to cognitive status Physical Exam Constitutional: no acute distress Sleeping but arousable, quickly falls back to sleep Neck: trachea midline Respiratory: no respiratory distress and does not use accessory muscles Auscultation: + diminished lung sounds, + rhonchi and + wheezes mildly increased WOB noted Cardiovascular: Rate/Rhythm: regular rate and regular rhythm Vessels: dorsalis pedis pulses present and radial pulses present Extremities: no pedal edema Gastrointestinal (Abdomen): Inspection/Auscultation: normal bowel sounds; abdomen not distended Percussion/Palpation: abdomen soft; abdomen nontender Musculoskeletal: Head/Neck/Chest: normocephalic, head atraumatic and neck supple Skin: thin, fragile skin with multiple areas of eccymosis Neurologic: moves all extremities and + confused drowsy but arousable Results & Data Results & Data ([facility]) Vital Signs (Past 12 Hours) Vital Signs Temp Pulse Pulse Resp BP BP Pulse Ox 08/14/21 09:00 36.8 C 97 H 18 96/59 L 99 08/14/21 07:49 79 16 106/66 98 08/14/21 07:16 76 25 H 95 08/14/21 07:07 99 H 20 139/78 97 08/14/21 06:33 38.0 C H 92 H 26 H 122/77 100 Laboratory Results Laboratory Results - last 24 hr 08/14/21 08/14/21 08/14/21 06:29 06:29 06:29 WBC 6.36 RBC 3.96 L Hgb 11.8 L Hct 37.9 MCV 95.7 MCH 29.8 MCHC 31.1 L RDW Std Deviation 53.2 H RDW Coeff of Wayne 15.1 H Plt Count 92 L MPV 10.3 Immature Gran % (Auto) 0.0 Neut % (Auto) 89.0 Lymph % (Auto) 4.2 Starr % (Auto) 6.1 Eos % (Auto) 0.5 Baso % (Auto) 0.2 Neut # (Auto) 5.66 Lymph # (Auto) 0.27 L Starr # (Auto) 0.39 Eos # (Auto) 0.03 Baso # (Auto) 0.01 Immature Gran # (Auto) 0.00 APTT 22.5 PTT Ratio 0.9 Sodium 139 Potassium 4.4 Chloride 109 H Carbon Dioxide 26 Anion Gap 4.0 BUN 22 H Creatinine 0.89 Est Cr Clr Drug Dosing 40.3 Est GFR ( Amer) 70.0 Est GFR (Non-Af Amer) 60.4 BUN/Creatinine Ratio 24.2 H Glucose 114 H Lactate Calcium 8.5 Total Bilirubin 0.3 AST 84 H ALT 65 Alkaline Phosphatase 295 H Troponin I 0.115 H* Total Protein 6.9 Albumin 3.1 L Globulin 3.8 Albumin/Globulin Ratio 0.8 L Lipase 43 L Procalcitonin Urine Color Urine Appearance Urine pH Ur Specific [place] Urine Protein Urine Glucose (UA) Urine Ketones Urine Blood Urine Nitrite Urine Bilirubin Urine Urobilinogen Ur Leukocyte Esterase Urine WBC (Auto) Urine RBC (Auto) U Hyaline Cast (Auto) U Epithel Cells (Auto) Urine Bacteria (Auto) COVID-19 Eval Order SARS-CoV-2 (PCR) 08/14/21 08/14/21 08/14/21 06:29 06:29 07:03 WBC RBC Hgb Hct MCV MCH MCHC RDW Std Deviation RDW Coeff of Wayne Plt Count MPV Immature Gran % (Auto) Neut % (Auto) Lymph % (Auto) Starr % (Auto) Eos % (Auto) Baso % (Auto) Neut # (Auto) Lymph # (Auto) Starr # (Auto) Eos # (Auto) Baso # (Auto) Immature Gran # (Auto) APTT PTT Ratio Sodium Potassium Chloride Carbon Dioxide Anion Gap BUN Creatinine Est Cr Clr Drug Dosing Est GFR ( Amer) Est GFR (Non-Af Amer) BUN/Creatinine Ratio Glucose Lactate Calcium Total Bilirubin AST ALT Alkaline Phosphatase Troponin I Total Protein Albumin Globulin Albumin/Globulin Ratio Lipase Procalcitonin Urine Color Yellow Urine Appearance Clear Urine pH 5.0 Ur Specific [place] 1.021 Urine Protein 2+ H Urine Glucose (UA) Negative Urine Ketones Negative Urine Blood 3+ H Urine Nitrite Negative Urine Bilirubin Negative Urine Urobilinogen Negative Ur Leukocyte Esterase Trace H Urine WBC (Auto) 1-5 Urine RBC (Auto) 0-4 U Hyaline Cast (Auto) 1-5 U Epithel Cells (Auto) 5-10 H Urine Bacteria (Auto) Negative COVID-19 Eval Order Covid19 at [facility] SARS-CoV-2 (PCR) NEGATIVE 08/14/21 08/14/21 09:50 09:50 WBC RBC Hgb Hct MCV MCH MCHC RDW Std Deviation RDW Coeff of Wayne Plt Count MPV Immature Gran % (Auto) Neut % (Auto) Lymph % (Auto) Starr % (Auto) Eos % (Auto) Baso % (Auto) Neut # (Auto) Lymph # (Auto) Starr # (Auto) Eos # (Auto) Baso # (Auto) Immature Gran # (Auto) APTT PTT Ratio Sodium Potassium Chloride Carbon Dioxide Anion Gap BUN Creatinine Est Cr Clr Drug Dosing Est GFR ( Amer) Est GFR (Non-Af Amer) BUN/Creatinine Ratio Glucose Lactate Pending Calcium Total Bilirubin AST ALT Alkaline Phosphatase Troponin I Total Protein Albumin Globulin Albumin/Globulin Ratio Lipase Procalcitonin Pending Urine Color Urine Appearance Urine pH Ur Specific [place] Urine Protein Urine Glucose (UA) Urine Ketones Urine Blood Urine Nitrite Urine Bilirubin Urine Urobilinogen Ur Leukocyte Esterase Urine WBC (Auto) Urine RBC (Auto) U Hyaline Cast (Auto) U Epithel Cells (Auto) Urine Bacteria (Auto) COVID-19 Eval Order SARS-CoV-2 (PCR) Diagnostic Findings Chest X-ray 08/14/21 - IMPRESSION: No acute chest disease. Medications Administered Discontinued Medications Acetaminophen (Acetaminophen 325 Mg Tab) 650 mg PO NOW STA Stop: 08/14/21 07:00 Last Admin: 08/14/21 07:22 Dose: 650 mg Documented by: [id number] Albuterol (Albuterol 0.083% Nebu Soln 3 Ml Vial) 2.5 mg NEB NOW STA Stop: 08/14/21 06:59 Last Admin: 08/14/21 07:15 Dose: 2.5 mg Documented by: [id number] Dexamethasone 6 mg/ Syringe 1.5 mls @ 1 mls/min IV ONE ONE Stop: 08/14/21 06:59 Last Admin: 08/14/21 09:08 Dose: 1 mls/min Documented by: [id number] Code Status & VTE Plan VTE Prophylaxis Plan VTE Prophylaxis will be ordered: Yes Supervising Physician Co-Signing Physician Notes Pt was seen and examined. Agreed with Shruti DE LA FUENTE exam, assessment and plan. 81 y/o female with a PMH of O2-dependent COPD, prior COVID pneumonia in Nov 2020 with recurrent episodes of pneumonia since then, CKD, bronchiectasis, depression, dementia, AAA, HTN, dyslipidemia, suspected asthma, and PVD who presents to the ED with progressive weakness, dyspnea, and new-onset of fever. History obtained from the daughter due to patient dementia. Pt had been having recurrent hospitalization since she was diagnosed with COVID 19 back in November. Daughter said henny for the last few days that she has been having a runny nose with productive cough. Daughter said that pt has been feeling weak and fatigue in the last few days. daugther said that pt was exposed to RSV and rhinovirus. has been required more oxygen supplement. CXR done in the showed no acute distress. Covid 19 negative. Lab sent for RSV later came back positive for COVID 19. Will follow blood cx and urine cx. Will consult pulmonology. Aspiration precaution. Will continue monitor closely. MD Melissa (1) Depression Active/Remission status: remission status unspecified Depression Type: major depressive disorder Major depression recurrence: unspecified whether recurrent Qualified Code(s): F32.9 - Major depressive disorder, single episode, unspecified (2) Hyperlipidemia Hyperlipidemia type: unspecified Qualified Code(s): E78.5 - Hyperlipidemia, unspecified (3) HTN (hypertension) Hypertension type: essential hypertension Qualified Code(s): I10 - Essential (primary) hypertension
[2021-08-14] MEDS: ALBUT/IPRATROP 3MG/0.5MG NEB 3 ML VIAL NEB SCH ×2 (15:39→19:14)
[2021-08-14 15:41] LABS: Adenovirus PCR Not Detected (NotDetected); Bordetella parapertussis PCR Not Detected (NotDetected); Bordetella pertussis PCR Not Detected (NotDetected); Chlamydia pneumoniae PCR Not Detected (NotDetected); Coronavirus 229E PCR Not Detected (NotDetected); Coronavirus CoV-2 (COVID19)PCR Not Detected (NotDetected); Coronavirus HKU1 PCR Not Detected (NotDetected); Coronavirus NL63 PCR Not Detected (NotDetected); Coronavirus OC43PCR Not Detected (NotDetected); Human Metapneumovirus PCR Not Detected (NotDetected); Influenza A PCR Not Detected (NotDetected); Influenza B PCR Not Detected (NotDetected); Mycoplasma pneumoniae PCR Not Detected (NotDetected); Parainfluenza Virus 1 PCR Not Detected (NotDetected); Parainfluenza Virus 2 PCR Not Detected (NotDetected); Parainfluenza Virus 3 PCR Not Detected (NotDetected); Parainfluenza Virus 4 PCR Not Detected (NotDetected); Rhinovirus/Enterovirus PCR Not Detected (NotDetected)
[2021-08-14 15:51] LABS: Respiratory Syncytial VirusPCR DETECTED (NotDetected)
--- NOTE | 2021-08-14 17:45 | Pulmonary Consultation ---
Date of Consultation August 14, 2021 Assessment & Plan (1) Multiple pulmonary nodules: CT chest 02/14/2021 personally reviewed: Centrilobular and paraseptal emphysema appreciated bilaterally Patchy opacities appreciated in the left lower lobe No mediastinal adenopathy Chest X ray 08/14/21 personally reviewed: Portable film, good respiratory effort, bilateral costophrenic and cardiophrenic opacity, no radiographic appreciated. --COPD with emphysema Patient on Flovent and Spiriva at home She should be on Anoro/Stiolto on Trelegy Would recommend discontinue Flovent on discharge. COVID-19 PCR negative RSV positive Procalcitonin 0.11 --History of sputum culture growing Aspergillus fumigatus Likely colonizer, no peripheral eosinophilia No need to treat --Multiple pulmonary nodules Repeat CT chest to follow-up Plan: DC Flovent Give Anoro instead On discharge patient can be discharged on Trelegy inhaler or Anoro/Stiolto If patient's voriconazole is being used to treat sputum Aspergillus I would recommend to discontinue it CT chest to look at the left lower lobe opacity seen in January 2021 Add guaifenesin with flutter valve. Please note the above document was generated using voice recognition software. It may contain grammatical, syntax or spelling errors.Any formal questions or concerns about the content, text or information contained within the body of this dictation should be directly addressed to the provider for clarification. History of Present Illness Attending Physician: Mark Torres MD History of Present Illness 81-year-old female past medical history of COPD, history of COVID-19 pneumonia b ack in November 2020, hypertension, dyslipidemia presented to the hospital with new onset fever. Patient has not yet been vaccinated against COVID-19 Pulmonary consulted because of history of Aspergillus in the sputum At the time of examination patient said that she is feeling better since coming to the hospital She is bringing up phlegm which is usually yellow in color. Denies any hemoptysis Denies any chest pain No headache, nausea, no vomiting. No dysuria, no diarrhea. Afebrile since coming to the hospital Patient states she is compliant with her inhalers Social history: Greater than [id number] smoking history quit 2 months ago Allergies Allergy/AdvReac Type Severity Reaction Status Date / Time No Known Allergies Allergy Unverified 08/14/21 08:41 Home Medications Medication Instructions Recorded Confirmed Type pravastatin 40 mg tablet 40 mg PO HS 09/21/19 08/14/21 History sertraline 100 mg tablet 100 mg PO QPM 09/21/19 08/14/21 History sertraline 50 mg tablet 50 mg PO QPM 09/21/19 08/14/21 History albuterol sulfate 2.5 mg INHALATION UD 11/01/20 08/14/21 History aspirin 81 mg tablet 81 mg PO DAILY 02/14/21 08/14/21 History cholecalciferol (vitamin D3) 50 50 mcg PO QAM 02/14/21 08/14/21 History mcg (2,000 unit) capsule (Vitamin D3) diclofenac sodium 1 % topical gel 1 ea TOPICAL QID PRN 02/14/21 08/14/21 History guaifenesin 600 mg tablet, 1,200 mg PO BID 02/14/21 08/14/21 History extended release 12 hr (Mucinex) fluticasone propionate 110 2 puff INHALATION BID 08/14/21 08/14/21 History mcg/actuation HFA aerosol inhaler (Flovent HFA) furosemide 20 mg tablet 20 mg PO DAILY PRN 08/14/21 08/14/21 History tiotropium bromide 2.5 2 puff INHALATION DAILY 08/14/21 08/14/21 History mcg/actuation mist for inhalation (Spiriva Respimat) voriconazole 200 mg tablet 200 mg PO QAM 08/14/21 08/14/21 History voriconazole 200 mg tablet 400 mg PO QPM 08/14/21 08/14/21 History Patient History Medical History AAA (abdominal aortic aneurysm) "s/p repair of ruptured AAA in 2010" Bronchiectasis CKD (chronic kidney disease), stage III COPD (chronic obstructive pulmonary disease) Dementia Depression Female stress incontinence H/O: CVA (cerebrovascular accident) Hip fracture History of COVID-19 History of pulmonary embolism HTN (hypertension) Hyperlipidemia Peripheral vascular disease Pulmonary nodule Recurrent pneumonia Tobacco use disorder Surgical History S/P AAA repair "s/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 Desir with bifurcated graft, left femoral thromboendarterectomy with patch angioplasty, right femoral thromboendarterectomy, and right iliofemoral bypass" S/P laparotomy "10/16/11- abdominal exploration, wound vac placement; 10/18/11- abdominal washout and closure. " S/P ORIF (open reduction internal fixation) fracture "left hip" Family History Other Diabetes Heart disease Social History (Updated 08/14/21 @ 10:01 by Shruti Markham PA-C) Smoking Status: Unknown if ever smoked Tobacco Type: Cigarettes Smoking End Date: 2019 pk-year history; Hx Alcohol Use: No Hx Substance Use: No Preferred Language: Tajik Communication Ability: Impaired Register Clerk Required: No Beliefs That Will Affect Care: None marital status: / marital status details: of COVID in Nov 2020 Current Living Situation: Family Feels Safe at Home: Yes Assistive Devices: Oxygen - Continuous Review of Systems Review of Systems: All systems reviewed & are unremarkable except as noted in HPI & below Physical Exam Physical Exam: Constitutional: No acute distress HEENT: EOMI, PERRLA Respiratory system: Decreased air entry bilaterally, positive for wheeze, positive rhonchi bilaterally, positive crackles bilateral lower lobes CVS: S1-S2 positive, no murmurs or gallops Abdomen: Soft, nontender, nondistended, positive bowel sounds x4 Extremities: +2 pulses bilaterally radialis/ dorsalis pedis, no cyanosis, +1 pitting edema bilateral lower extremity, ecchymosis appreciated dorsal aspect of bilateral hands Neuro: Awake alert oriented x3 Psych: Normal mood and affect G/U: No Patel Skin: no rashes, warm and dry Lymphatic: no cervical or axillary lymphadenopathy Results & Data Results & Data ([facility]) Vital Signs (Past 12 Hours) Vital Signs Temp Pulse Pulse Pulse Resp BP BP 08/14/21 16:12 36.9 C 87 20 100/66 08/14/21 15:40 86 20 08/14/21 14:00 90 21 118/63 08/14/21 13:30 90 18 106/62 08/14/21 13:00 93 H 19 110/60 08/14/21 12:30 91 H 21 109/63 08/14/21 12:00 92 H 18 108/59 L 08/14/21 11:31 93 H 18 110/62 08/14/21 11:00 93 H 19 101/60 08/14/21 10:30 94 H 17 102/57 L 08/14/21 10:00 94 H 94 H 20 94/56 L 94/56 L 08/14/21 09:30 98 H 22 96/59 L 08/14/21 09:00 36.8 C 61 97 H 17 88/65 L 96/59 L 08/14/21 08:30 22 08/14/21 08:00 24 100/59 L 08/14/21 07:49 79 16 106/66 08/14/21 07:30 119 H 27 H 115/71 08/14/21 07:16 76 25 H 08/14/21 07:07 99 H 20 139/78 08/14/21 07:00 95 H 27 H 139/78 08/14/21 06:33 38.0 C H 92 H 26 H 122/77 08/14/21 06:32 90 28 H 127/79 08/14/21 06:18 90 31 H 122/77 Pulse Ox 08/14/21 16:12 92 08/14/21 15:40 96 08/14/21 14:00 98 08/14/21 13:30 96 08/14/21 13:00 96 08/14/21 12:30 98 08/14/21 12:00 97 08/14/21 11:31 98 08/14/21 11:00 97 08/14/21 10:30 97 08/14/21 10:00 97 08/14/21 09:30 96 08/14/21 09:00 97 08/14/21 08:30 97 08/14/21 08:00 08/14/21 07:49 98 08/14/21 07:30 92 08/14/21 07:16 95 08/14/21 07:07 97 08/14/21 07:00 96 08/14/21 06:33 100 08/14/21 06:32 99 08/14/21 06:18 98 08/14/21 06:29 08/14/21 06:29 PG Care Time/CCT Total # of Minutes Spent Total Time Spent with Patient: Total time spent is greater than 50% in coordination of care (as documented) at patient's floor/unit and/or counseling patient: Coding Level of Care Code 97221 Initial Inpt Care Lvl 3 Diagnoses Multiple pulmonary nodules R91.8
[2021-08-14] MEDS: methylPREDNISolone 40 MG in SYRINGE 0 ML IV SCH (18:13)
[2021-08-14] MEDS: guaiFENesin 600 MG TABCR PO SCH ×2 (20:28→20:31)
[2021-08-14] MEDS: VORICONAZOLE 200 MG TABLET PO SCH (20:29)
[2021-08-14] MEDS: HEPARIN SOD 5,000 UNIT/0.5 ML VIAL SQ SCH (20:29)
[2021-08-14] MEDS: PRAVASTATIN SOD 40 MG TAB PO SCH (20:30)
[2021-08-14] MEDS: SERTRALINE HCL 100 MG TABLET PO SCH (20:31)
[2021-08-14] MEDS: SERTRALINE HCL 50 MG TABLET PO SCH (20:31)
[2021-08-15] MEDS: methylPREDNISolone 40 MG in SYRINGE 0 ML IV SCH ×3 (03:30→18:26)
--- NOTE | 2021-08-15 06:40 | Electrocardiogram Report ---
Test Reason : Blood Pressure : / mmHG Vent. Rate : 100 BPM Atrial Rate : 107 BPM P-R Int : 000 ms QRS Dur : 098 ms QT Int : 354 ms P-R-T Axes : 000 -46 022 degrees QTc Int : 456 ms Poor data quality, interpretation may be adversely affected Probable Sinus tachycardia with frequent Premature atrial complexes Left axis deviation Low voltage QRS Cannot rule out Anterior infarct (cited on or before 14-FEB-2021) Abnormal ECG When compared with ECG of 14-FEB-2021 16:21, QRS axis Shifted left Confirmed by Hansel Jason ([id number] on 08/15/2021 6:40:15 AM Referred By: REFERRED SELF Confirmed By:Hansel Jason
[2021-08-15 07:14] LABS: Hematocrit (blood only) 33.8 % (37-47); Hemoglobin 10.9 g/dL (12.0-16.0); Mean Corpuscular Hemoglobin 29.4 pg (25-34); Mean Corpuscular Hgb Conc 32.2 g/dL (32-36); Mean Corpuscular Volume 91.1 fL (80-100); RDW Coefficient of Variation 14.8 % (11.5-14.5); RDW Standard Deviation 49.6 fL (36.4-46.3); Red Blood Count 3.71 M/uL (4.2-5.4); White Blood Count 5.18 K/uL (4.8-10.8)
[2021-08-15] MEDS: ALBUT/IPRATROP 3MG/0.5MG NEB 3 ML VIAL NEB SCH ×4 (07:20→19:21)
[2021-08-15 07:23] LABS: Mean Platelet Volume 10.4 fL (7.4-10.4); Platelet Count 87 K/uL (130-400)
[2021-08-15 07:41] LABS: Immature Granulocytes # (auto) 0.01 K/uL (0.00-0.02); Immature Granulocytes % (auto) 0.2 %; Lymphocytes # (auto) 0.19 K/uL (1.2-3.4); Lymphocytes % (auto) 3.7 %; Monocytes # (auto) 0.12 K/uL (0.11-0.59); Monocytes % (auto) 2.3 %; Neutrophils # (auto) 4.86 K/uL (1.4-6.5); Neutrophils % (auto) 93.8 %
[2021-08-15 07:54] LABS: Albumin Level 2.6 gm/dl (3.4-5.0); BUN Creatinine Ratio 38.5 (10-20); Calcium 8.5 mg/dl (8.5-10.1); Creatinine Clr Calc Pharmacy 41.2 ml/min; Est GFR (African American) 71.9 ml/min; Potassium 4.6 mmol/L (3.5-5.1)
[2021-08-15 07:56] LABS: Albumin Globulin Ratio 0.7 (0.9-2); Bilirubin,Total 0.4 mg/dl (0.2-1); Globulin 3.6 gm/dl (2.5-4.0); Total Protein 6.2 gm/dl (6.4-8.2)
--- NOTE | 2021-08-15 08:45 | Palliative Care Consultation ---
Date of Consultation August 15, 2021 Assessment & Plan (1) Palliative care encounter: Ms. Gonzáles is an 81 year old female who presented to the [facility] with fevers and a COPD exacerbation and hypoxia. Additional PMH includes: COVID- 19 infection in November 2020, HTN, AAA, HLD, senile degeneration of the brain, depression, CKD3, 70 pack year smoking history and has abstained from smoking for the past 2 months. She is unvaccinated against future COVID-19 infection. On arrival, a chest CT was performed and a RUL nodule was discovered. The family has been deciding whether they would like additional work up, including a bronchoscopy to investigate the possibility of malignancy. Palliative Medicine was consulted to discuss overall goals of care with the patient and family. I met with Ms. Gonzáles at her bedside. She was sitting in her bedside chair in no apparent distress. I asked her to explain why she was in the hospital and she did to the best of her ability. She did seem confused but then did mention the results of her chest ct scan indicated that there was a small 'mass' in her lung and she wasn't sure if she wanted to do anything about it. She said she has 5 kids. She explained that her , Fazal, 2 months ago, which I confirmed that Michelle's in November 2020. I called her daughter Laura at [phone] who is her granddaughter and mentioned that this 'aggressive' measures conversation is not necessarily new as her PCP has been managing a nodule with antifungals over the past few months. They are trying to determine if this new 'nodule' is related to the fungal involvement or if it is possible malignancy. There is not a designated POA between the 5 kids. Sol said that Mary, Michelle's daughter, has been staying with her as of late, so would be the main contact and service clerks supervisor. I called Mary at [phone] and left her a non descriptive voice mail. Prior to calling her I did discuss her care with Dr. Reynolds. We looked at her chest CT and he was able to compare it to the one from April 2021. He mentioned that he did not think that the nodule was accessible via bronchoscopy and if the family was interested in continuing care and looking at treatment options, would recommend a CT/PET scan to determine any other organ involvement. At this time, malignancy is highly suspicious. Ultimately, big decisions will need to be made by all 5 involved children as there is not a designated POA documented. Code status and goals of care necessary to discuss with family when they return Palliative phone call. Pt to remain full code for now. Call back # provided: [phone]. Palliative will follow. (2) Multiple pulmonary nodules: (3) Thrombocytopenia: (4) Dementia: (5) COPD exacerbation: (6) Weakness: History of Present Illness Reason for Consultation: Goals of care Requesting Physician: Anjelica Markham PA-C Attending Physician: Mark Torres MD History of Present Illness Ms. Gonzáles is an 81 year old female who presented to the [facility] with fevers and a COPD exacerbation and hypoxia. Additional PMH includes: COVID-19 infection in November 2020, HTN, AAA, HLD, senile degeneration of the brain, depression, CKD3, 70 pack year smoking history and has abstained from smoking for the past 2 months. She is unvaccinated against future COVID-19 infection. On arrival, a chest CT was performed and a RUL nodule was discovered. The family has been deciding whether they would like additional work up, including a bronchoscopy to investigate the possibility of malignancy. Palliative Medicine was consulted to discuss overall goals of care with the patient and family. Please see A/P for further details. Thanks for involving Palliative Medicine with this individual. Allergies Allergy/AdvReac Type Severity Reaction Status Date / Time No Known Allergies Allergy Unverified 08/14/21 08:41 Home Medications Medication Instructions Recorded Confirmed Type pravastatin 40 mg tablet 40 mg PO HS 09/21/19 08/14/21 History sertraline 100 mg tablet 100 mg PO QPM 09/21/19 08/14/21 History sertraline 50 mg tablet 50 mg PO QPM 09/21/19 08/14/21 History albuterol sulfate 2.5 mg INHALATION UD 11/01/20 08/14/21 History aspirin 81 mg tablet 81 mg PO DAILY 02/14/21 08/14/21 History cholecalciferol (vitamin D3) 50 50 mcg PO QAM 02/14/21 08/14/21 History mcg (2,000 unit) capsule (Vitamin D3) diclofenac sodium 1 % topical gel 1 ea TOPICAL QID PRN 02/14/21 08/14/21 History guaifenesin 600 mg tablet, 1,200 mg PO BID 02/14/21 08/14/21 History extended release 12 hr (Mucinex) fluticasone propionate 110 2 puff INHALATION BID 08/14/21 08/14/21 History mcg/actuation HFA aerosol inhaler (Flovent HFA) furosemide 20 mg tablet 20 mg PO DAILY PRN 08/14/21 08/14/21 History tiotropium bromide 2.5 2 puff INHALATION DAILY 08/14/21 08/14/21 History mcg/actuation mist for inhalation (Spiriva Respimat) voriconazole 200 mg tablet 200 mg PO QAM 08/14/21 08/14/21 History voriconazole 200 mg tablet 400 mg PO QPM 08/14/21 08/14/21 History Patient History Medical History (Updated 08/15/21 @ 08:55 by DAGO Ray) AAA (abdominal aortic aneurysm) "s/p repair of ruptured AAA in 2010" Bronchiectasis CKD (chronic kidney disease), stage III COPD (chronic obstructive pulmonary disease) Dementia Depression Female stress incontinence H/O: CVA (cerebrovascular accident) Hip fracture History of COVID-19 History of pulmonary embolism HTN (hypertension) Hyperlipidemia Palliative care encounter Peripheral vascular disease Pulmonary nodule Recurrent pneumonia Tobacco use disorder Weakness Surgical History S/P AAA repair "s/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 Desir with bifurcated graft, left femoral thromboendarterectomy with patch angioplasty, right femoral thromboendarterectomy, and right iliofemoral bypass" S/P laparotomy "10/16/11- abdominal exploration, wound vac placement; 10/18/11- abdominal washout and closure. " S/P ORIF (open reduction internal fixation) fracture "left hip" Family History Other Diabetes Heart disease Social History Smoking Status: Unknown if ever smoked Tobacco Type: Cigarettes Smoking End Date: 2019. pk-year history; Hx Alcohol Use: No Hx Substance Use: No Preferred Language: [place] Communication Ability: Impaired Retail Associate Required: No Beliefs That Will Affect Care: None marital status: / marital status details: of COVID in Nov 2020 Current Living Situation: Family Feels Safe at Home: Yes Assistive Devices: Glasses and Oxygen - Continuous Review of Systems Review of Systems: [place] System Assessment Scale: Pain: 0/3 Anxiety: 1/3 Tiredness: 1/3 SOB: 0/3 Lack of Appetite: 1/3 Palliative Performance Scale: 40% Physical Exam Constitutional: + frail appearing, cooperative and comfortable ENMT: Mouth: + dry oral mucous membranes Respiratory: normal respiratory effort and + cough; no labored breathing Auscultation: + diminished lung sounds Cardiovascular: Rate/Rhythm: regular rate and regular rhythm Heart Sounds: normal S1 and normal S2 Extremities: normal capillary refill and + edema Gastrointestinal (Abdomen): Inspection/Auscultation: abdomen normal to inspection Skin: + ecchymosis and + pallor Psychiatric: Orientation: alert, oriented to person, oriented to place and cooperative Insight: + limited insight Judgement: + limited judgement Results & Data ([facility]) Vital Signs (Past 12 Hours) Vital Signs Temp Pulse Pulse Resp BP Pulse Ox 08/15/21 07:38 36.9 C 88 18 102/64 96 08/15/21 07:20 87 18 96 08/15/21 03:58 36.8 C 89 18 102/67 95 08/15/21 01:50 88 08/14/21 22:51 36.5 C 87 18 100/61 92 PG Care Time/CCT Total # of Minutes Spent Total Time Spent with Patient: Total time spent is greater than 50% in coordination of care (as documented) at patient's floor/unit and/or counseling patient: 100 minutes with > 50% of that time spent assessing the patient, discussing goals of care, addressing symptom management needs and collaborating with IDT Coding Level of Care Code 82171 Initial Inpt Care Lvl 3 Diagnoses Palliative care encounter Z51.5 Multiple pulmonary nodules R91.8 Thrombocytopenia D69.6 Dementia F03.90 COPD exacerbation J44.1 Weakness R53.1 Time Spent (min) 100
[2021-08-15] MEDS: ASPIRIN 81 MG ECTAB PO SCH (09:52)
[2021-08-15] MEDS: guaiFENesin 600 MG TABCR PO SCH ×4 (09:53→20:28)
[2021-08-15] MEDS: UMECLIDINIUM/VILANTEROL 62.5/25MCG 7 PUFFS/INHALER INH SCH (09:54)
[2021-08-15] MEDS: HEPARIN SOD 5,000 UNIT/0.5 ML VIAL SQ SCH ×2 (09:54→20:28)
[2021-08-15] MEDS: VORICONAZOLE 200 MG TABLET PO SCH ×2 (09:55→20:27)
--- NOTE | 2021-08-15 11:31 | CT Scan Report ---
CT chest diagnostic wo con CLINICAL HISTORY: f/u LLL nodules COMPARISON STUDY: February 14, 2021 CT DOSE: 229.23 mGy.cm TECHNIQUE: CT of the thorax was performed from the thoracic inlet to the lung bases. Images are revi ewed in the axial, sagittal, and coronal planes. IV contrast was not administered for this examinatio n. A dose lowering technique was utilized adhering to the principles of ALARA. FINDINGS: There is no axillary, supra clavicle or internal mammary lymphadenopathy seen. Multiple mediastinal l ymph nodes are measuring less than 1 cm in short axis and nonpathological by CT size criteria. Thyroid: Visualized portion of thyroid gland shows no evidence of focal lesions. Mild hiatal hernia is seen. Thoracic aorta: Ascending thoracic aorta is normal in caliber with possible postoperative changes aft er aortic root repair/replacement. Descending thoracic aorta is tortuous and ectatic measuring up to 3.3 cm in diameter. Scattered calcifications of aortic wall are seen. Heart: The heart is normal in size and configuration, without pericardial effusion. Moderate coronary calcifications are seen. Lungs and pleural spaces: Tracheobronchial tree is patent. Mild centrilobular upper lobe predominant emphysema is seen. There are patchy airspace opacities associated with septal thickening which are seen within left lowe r lobe, slightly improved since 0 01/18. No pleural effusion is seen. -There is large 2.4 x 1.8 cm nodule with lobulated contour at paramediastinal aspect of the right upp er lobe which is highly concerning for neoplastic process (4/86). -Interval development of 11 mm groundglass nodule within right upper lobe with 3 mm solid component ( 4/137) Few other pulmonary nodules within the right lung are stable since prior and marked in PACs on series 4. There are right ill-defined patchy groundglass opacities are seen within right upper lobe which were not seen on prior study. Ill-defined area of groundglass attenuation is seen within paramediastinal a spect of the right upper lobe (4/141), neoplastic process cannot be completely ruled out Upper abdomen: Limited evaluation of upper abdominal viscera shows lobulated anterior contour of the left hepatic lobe which was also seen during prior study and incompletely evaluated on this nondedic ated exam. 2.5 cm partially visualized left adrenal adenoma is again seen. Possible prominent lymph nodes are se en within upper abdomen however evaluation is suboptimal due to motion artifact and lack of IV contra st. Skeletal structures: Osteopenia and multilevel degenerative changes of the spine. No definite aggress willy osseous lesions are seen. IMPRESSION: 1. Multiple pulmonary nodules as detailed above. Large solid nodule with lobulated contour within pa ramediastinal aspect of the right upper lobe is highly concerning for malignancy. Further evaluation by oncology and possible PET/CT is suggested. Report will be sent to ordering physician. 2. Ectatic ascending aorta as detailed above. 3. Previously seen patchy airspace opacities within the right lower lobe is slightly improved since prior. 4. Possible enlarged lymph nodes within upper abdomen. Further evaluation with CT of the abdomen wit h IV contrast is suggested. ACT 112: Negative or not required by law. The above report was generated using voice recognition software. It may contain grammatical, syntax o r spelling errors. Electronically signed by: Meseret Almaguer DO 08/15/2021 11:30 AM
[2021-08-15] MEDS: ACETYLCYSTEINE 20% INHAL SOLN 4ML ***DISPENSED BY RESP. INH SCH ×2 (11:33→19:21)
--- NOTE | 2021-08-15 12:39 | Pulmonology Progress Note ---
Date of Service August 15, 2021 Assessment & Plan (1) Multiple pulmonary nodules: Plan: CT chest 08/07/2021 personally reviewed: Centrilobular and paraseptal emphysema appreciated bilaterally Right upper lobe 2.4 x 1.8 cm mass Nodularities in the left lower lobe have almost resolved Tree-in-bud opacities appreciated in the right middle as well as the right lower lobe Minimal mediastinal lymphadenopathy Chest X ray 08/14/21 personally reviewed: Portable film, good respiratory effort, bilateral costophrenic and cardiophrenic opacity, no radiographic appreciated. --COPD with emphysema Patient on Flovent and Spiriva at home She should be on Anoro/Stiolto on Trelegy Would recommend discontinue Flovent on discharge. COVID-19 PCR negative RSV positive Procalcitonin 0.11 --Right upper lobe mass 2.4 x 1.8 cm apical segment right upper lobe. Significant increase in size since November 2020 Navigational bronchoscopy could be thought of but it will be difficult to get even through navigational bronchoscopy given the acute angle that it is at the apical segment of the right upper lobe Simple bronchoscopy could also be thought of with only BAL and brushings --History of sputum culture growing Aspergillus fumigatus Likely colonizer, no peripheral eosinophilia No need to treat --Multiple pulmonary nodules Repeat CT chest to follow-up Plan: I spoke with patient's granddaughter who makes a decision along with the family. Given the significant increase in size in November 2020 the possibility of the right upper lobe mass being cancer is very high. Previously patient family were reluctant to do any procedure which required intubation I do think that in order to make the diagnosis navigational bronchoscopy would be the best shot but still we could miss the diagnosis given the acute location it is at at. I gave another option of bronchoscopy with only BAL and brushings to see if he can get diagnosis it will be of low yield but no intubation needed If the patient's family wants to go towards conservative approach then PET/CT could be ordered to see if it is spread anywhere else. Given the patient's age as well as the lungs I do not think she will be a surgical candidate. Patient is a 81 years old given chemotherapy would not be easy for her. SBRT could be thought of All questions inquiries of the patient granddaughter were answered in depth. Case was discussed with Dr. Torres Please note the above document was generated using voice recognition software. It may contain grammatical, syntax or spelling errors.Any formal questions or concerns about the content, text or information contained within the body of this dictation should be directly addressed to the provider for clarification. Admission and Anticipated Discharge Date Admission Date: August 14, 2021 Subjective Patient seen and examined at bedside. No acute distress, no adverse events overnight. Patient was saturating well on room air at the time of examination Denied any chest pain She said that she is feeling better. Has been bringing up clear phlegm. Denies any chest pain, no nausea or vomiting Fair appetite Was asking to go home Review of Systems Review of Systems: All systems reviewed & are unremarkable except as noted in Subjective Physical Exam Physical Exam: Constitutional: No acute distress HEENT: EOMI, PERRLA Respiratory system: Decreased air entry bilaterally, positive for wheeze, positive rhonchi bilaterally, positive crackles bilateral lower lobes CVS: S1-S2 positive, no murmurs or gallops Abdomen: Soft, nontender, nondistended, positive bowel sounds x4 Extremities: +2 pulses bilaterally radialis/ dorsalis pedis, no cyanosis, +1 pitting edema bilateral lower extremity, ecchymosis appreciated dorsal aspect of bilateral hands Neuro: Awake alert oriented x3 Psych: Normal mood and affect G/U: No Patel Skin: no rashes, warm and dry Lymphatic: no cervical or axillary lymphadenopathy Results & Data Results & Data ([facility]) Vital Signs (Past 12 Hours) Vital Signs Temp Pulse Pulse Resp BP Pulse Ox 08/15/21 11:40 90 08/15/21 11:37 36.9 C 93 H 18 90/54 L 95 08/15/21 11:33 86 16 95 08/15/21 07:38 36.9 C 88 18 102/64 96 08/15/21 07:20 87 18 96 08/15/21 03:58 36.8 C 89 18 102/67 95 08/15/21 01:50 88 08/15/21 06:55 08/15/21 06:55 PG Care Time/CCT Total # of Minutes Spent Total Time Spent with Patient: Total time spent is greater than 50% in coordination of care (as documented) at patient's floor/unit and/or counseling patient: Coding Level of Care Code 61295 Subseq Hosp Care Lvl 3 Diagnoses Multiple pulmonary nodules R91.8
--- NOTE | 2021-08-15 18:05 | Hospitalist Progress Note ---
Date of Service August 15, 2021 Assessment & Plan (1) COPD exacerbation: (2) Elevated troponin: (3) Pulmonary nodule: (4) CKD (chronic kidney disease), stage III: (5) HTN (hypertension): (6) Hyperlipidemia: (7) Depression: Plan: Present on admission with worsening shortness of breath, fever and weakness Exposed to rhinovirus and RSV from grand children COVID-19 negative and procalcitonin negative RSV positive Chest x-ray on admission showed no acute process CT chest showed Multiple pulmonary nodules as detailed above. Large solid nodule with lobulated contour within paramediastinal aspect of the right upper lobe is highly concerning for malignancy. Continue supportive therapy Pulm on board Will change solumedrol to prednisone 40mg daily Continue oxygen supplement Continue flutter valve, guaifenesin and incentive spirometry Clinically improved significantly Right upper Lobe Mass CT chest showed multiple pulmonary nodules as detailed above. Large solid nodule with lobulated contour within paramediastinal aspect of the right upper lobe is highly concerning for malignancy. Spoke to Dr. Mcdaniels that suggested to push the last CT chest imaging from April 2021 to [place] [facility] that he could compare it to the CT chest today Mass Significant increase in size since November [address] Dr. Mcdaniels discussed finding over the phone with her grand daughter Unfortunately the location is not accessible to Bronch as per Dr. Mcdaniels Recommend outpatient PET scan Palliative care on board for goals of care COPD COPD with emphysema Patient on Flovent and Spiriva at home Pulm recommended to transition to Anoro/Stiolto or Trelegy and discontinue Flovent on discharge. 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 Will get a CT of the abdomen with IV contrast to r/o any mas Thrombocytopenia Platelet 87 No sign of active bleeding Continue monitor closely Transaminitis LFT increase with AST 90 and ALT [address] abdomen Will monitor LFT DVT Prophylaxis: Heparin subQ BID Code Status: Full code Admission and Anticipated Discharge Date Admission Date: August 14, 2021 Subjective Patient was seen and examined for follow-up of shortness of breath Sitting in chair with no acute distress Patient is feeling much better this morning compared to yesterday on admission She said that her breathing feels better Pulmonology and palliative care team spoke to daughter today over the phone Denies any chest pain, palpitation, dizziness, and fever Review of Systems Review of Systems: All systems reviewed & are unremarkable except as noted in Subjective Physical Exam Physical Exam: General- No acute distress Head- atraumatic Eyes- PERRL, EOMI, ENT- oropharynx clear Neck- supple, no JVD Lungs- +decrease BS, +rhonchi Heart- regular rhythm; Abdomen- normal bowel sounds, soft, nontender Extremities- no calf tenderness Neuro- alert, oriented x 3; PERRL, EOMI; no facial palsy; no dysarthria Skin- warm & dry Results & Data Results & Data ([facility]) Vital Signs (Past 12 Hours) Vital Signs Temp Pulse Pulse Resp BP Pulse Ox 08/15/21 15:01 83 18 95 08/15/21 14:52 36.7 C 85 18 100/62 96 08/15/21 11:40 90 08/15/21 11:37 36.9 C 93 H 18 90/54 L 95 08/15/21 11:33 86 16 95 08/15/21 07:38 36.9 C 88 18 102/64 96 08/15/21 07:20 87 18 96 (1) Depression Active/Remission status: remission status unspecified Depression Type: major depressive disorder Major depression recurrence: unspecified whether recurrent Qualified Code(s): F32.9 - Major depressive disorder, single episode, unspecified (2) Hyperlipidemia Hyperlipidemia type: unspecified Qualified Code(s): E78.5 - Hyperlipidemia, unspecified (3) HTN (hypertension) Hypertension type: essential hypertension Qualified Code(s): I10 - Essential (primary) hypertension
[2021-08-15] MEDS: SODIUM CHLOR 7% 4 ML NEB NEB SCH (19:21)
[2021-08-15] MEDS: SERTRALINE HCL 100 MG TABLET PO SCH (20:27)
[2021-08-15] MEDS: SERTRALINE HCL 50 MG TABLET PO SCH (20:27)
[2021-08-15] MEDS: PRAVASTATIN SOD 40 MG TAB PO SCH (20:27)
[2021-08-16] MEDS: methylPREDNISolone 40 MG in SYRINGE 0 ML IV SCH ×2 (02:25→12:10)
--- NOTE | 2021-08-16 06:16 | Electrocardiogram Report ---
Test Reason : Blood Pressure : / mmHG Vent. Rate : 090 BPM Atrial Rate : 090 BPM P-R Int : 240 ms QRS Dur : 102 ms QT Int : 370 ms P-R-T Axes : 084 -07 006 degrees QTc Int : 452 ms Sinus rhythm with 1st degree A-V block Low voltage QRS Possible Anterior infarct Nonspecific T wave abnormality Abnormal ECG When compared with ECG of 14-AUG-2021 06:18, QRS axis Shifted right Nonspecific T wave abnormality now evident in Anterior leads Confirmed by Hansel Jason ([id number]) on 08/16/2021 6:16:08 AM Referred By: REFERRED SELF Confirmed By:Hansel Jason
[2021-08-16 06:26] LABS: Hematocrit (blood only) 32.6 % (37-47); Hemoglobin 10.7 g/dL (12.0-16.0); Mean Corpuscular Hemoglobin 29.6 pg (25-34); Mean Corpuscular Hgb Conc 32.8 g/dL (32-36); Mean Corpuscular Volume 90.3 fL (80-100); Mean Platelet Volume 10.1 fL (7.4-10.4); Platelet Count 105 K/uL (130-400); RDW Coefficient of Variation 14.7 % (11.5-14.5); RDW Standard Deviation 48.8 fL (36.4-46.3); Red Blood Count 3.61 M/uL (4.2-5.4); White Blood Count 6.22 K/uL (4.8-10.8)
[2021-08-16 07:01] LABS: Albumin Level 2.7 gm/dl (3.4-5.0); BUN Creatinine Ratio 50.2 (10-20); Calcium 8.6 mg/dl (8.5-10.1); Creatinine Clr Calc Pharmacy 36.6 ml/min; Est GFR (African American) 62.3 ml/min; Est GFR (Non-African American) 53.7 ml/min; Potassium 4.5 mmol/L (3.5-5.1)
[2021-08-16 07:03] LABS: Albumin Globulin Ratio 0.8 (0.9-2); Bilirubin,Total 0.4 mg/dl (0.2-1); Globulin 3.6 gm/dl (2.5-4.0); Total Protein 6.3 gm/dl (6.4-8.2)
[2021-08-16] MEDS: SODIUM CHLOR 7% 4 ML NEB NEB SCH ×2 (07:36→19:46)
[2021-08-16] MEDS: ACETYLCYSTEINE 20% INHAL SOLN 4ML ***DISPENSED BY RESP. INH SCH ×2 (07:36→19:46)
[2021-08-16] MEDS: ALBUT/IPRATROP 3MG/0.5MG NEB 3 ML VIAL NEB SCH ×4 (07:36→19:46)
[2021-08-16] MEDS: ASPIRIN 81 MG ECTAB PO SCH (07:58)
[2021-08-16] MEDS: VORICONAZOLE 200 MG TABLET PO SCH ×2 (07:59→21:13)
[2021-08-16] MEDS: UMECLIDINIUM/VILANTEROL 62.5/25MCG 7 PUFFS/INHALER INH SCH (07:59)
[2021-08-16] MEDS: guaiFENesin 600 MG TABCR PO SCH ×4 (07:59→21:14)
[2021-08-16] MEDS: HEPARIN SOD 5,000 UNIT/0.5 ML VIAL SQ SCH ×2 (08:00→21:12)
[2021-08-16] MEDS ORDERED: INFLUENZA VACCINE HIGH DOSE PF 65+ 0.7 ML SYR IM ONE (11:16)
[2021-08-16] MEDS ORDERED: OPTIRAY 320 100ml IV ONE (11:29)
--- NOTE | 2021-08-16 12:06 | Pulmonology Progress Note ---
Date of Service August 16, 2021 Assessment & Plan (1) Multiple pulmonary nodules: Plan: CT chest 08/07/2021 personally reviewed: Centrilobular and paraseptal emphysema appreciated bilaterally Right upper lobe 2.4 x 1.8 cm mass Nodularities in the left lower lobe have almost resolved Tree-in-bud opacities appreciated in the right middle as well as the right lower lobe Minimal mediastinal lymphadenopathy Chest X ray 08/14/21 personally reviewed: Portable film, good respiratory effort, bilateral costophrenic and cardiophrenic opacity, no radiographic appreciated. --COPD with emphysema Patient on Flovent and Spiriva at home She should be on Anoro/Stiolto on Trelegy Would recommend discontinue Flovent on discharge. COVID-19 PCR negative RSV positive Procalcitonin 0.11 --Right upper lobe mass 2.4 x 1.8 cm apical segment right upper lobe. 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 Will sign off. Please call directly with any questions Case was discussed with Dr. Berkowitz Please note the above document was generated using voice recognition software. It may contain grammatical, syntax or spelling errors.Any formal questions or concerns about the content, text or information contained within the body of this dictation should be directly addressed to the provider for clarification. Admission and Anticipated Discharge Date Admission Date: August 14, 2021 Subjective Seen and examined at bedside. No acute distress, no patient says she is feeling better. Has been using flutter valve. Denies any hemoptysis. No headache, no nausea or vomiting fair appetite Review of Systems Review of Systems: All systems reviewed & are unremarkable except as noted in Subjective Physical Exam Physical Exam: Constitutional: No acute distress HEENT: EOMI, PERRLA Respiratory system: Decreased air entry bilaterally, positive for wheeze, positive rhonchi bilaterally, positive crackles bilateral lower lobes CVS: S1-S2 positive, no murmurs or gallops Abdomen: Soft, nontender, nondistended, positive bowel sounds x4 Extremities: +2 pulses bilaterally radialis/ dorsalis pedis, no cyanosis, +1 pitting edema bilateral lower extremity, ecchymosis appreciated dorsal aspect of bilateral hands Neuro: Awake alert oriented x3 Psych: Normal mood and affect G/U: No Patel Skin: no rashes, warm and dry Lymphatic: no cervical or axillary lymphadenopathy Results & Data Results & Data ([facility]) Vital Signs (Past 12 Hours) Vital Signs Temp Pulse Resp BP Pulse Ox 08/16/21 07:50 36.6 C 89 20 105/58 L 97 08/16/21 07:36 89 20 97 08/16/21 02:53 36.5 C 59 L 16 102/64 92 08/16/21 06:09 08/16/21 06:09 PG Care Time/CCT Total # of Minutes Spent Total Time Spent with Patient: Total time spent is greater than 50% in coordination of care (as documented) at patient's floor/unit and/or counseling patient: Coding Level of Care Code 76176 Subseq Hosp Care Lvl 3 Diagnoses Multiple pulmonary nodules R91.8
--- NOTE | 2021-08-16 12:52 | CT Scan Report ---
ABDOMEN AND PELVIS CT WITH IV CONTRAST CT DOSE: 263.85 mGy.cm HISTORY: Screening study in a patient with history of pulmonary nodules and emphysema. Concern for po ssible metastatic disease. r/o any mass/ enlarged lymph node TECHNIQUE: Multiaxial CT images of the abdomen and pelvis were performed following the IV administrat ion of 94 cc of Optiray, A dose lowering technique was utilized adhering to the principles of ALARA. COMPARISON STUDY: Chest CT 08/15/2021 and 02/14/2021, CT abdomen and pelvis 01/08/2014 FINDINGS: Bronchial wall thickening with bibasilar tree-in-bud nodules and patchy groundglass and con solidative densities, left greater than right. Trace pleural effusions. No pneumatosis or pneumoperit oneum. Cardiomegaly with coronary artery calcifications. The spleen is mildly enlarged. There are a f ew scattered subcentimeter hypodense foci of the spleen measuring up to approximately 7 mm which are pathologically indeterminate. Moderate generalized pancreatic atrophy. Bilateral renal gland adenomat a versus adenomatous hyperplasia redemonstrated along with calcifications of the right adrenal gland. The right adrenal gland measures 2.2 cm and the left measures 2.6 cm. These have slightly increased in size from 2014. Unremarkable gallbladder and liver. Patency of the hepatic and portal veins. No dave spicious hepatic lesions identified. Mild cortical thinning of the kidneys. There are a few hypodensities of the right kidney measuring up to 11 mm suggestive of probable cysts. There is no hydronephrosis. Mild urinary bladder wall thicken ing with partial distention. Unremarkable uterus and adnexa. Atherosclerosis of the aorta with aortob iiliac graft repair which is similar to comparison. Fusiform dilation of the distal abdominal aorta m easures 3.0 x 2.7 cm. 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 Unremarkable IVC. No adenopathy. Mild nonspecific distal esophageal wall thickening. No bowel obstruction or bowel wall thickening. Co lonic diverticulosis. Moderate fecal retention. Normal appendix. There are several ventral abdominal wall hernias noted including an upper abdominal hernia with diastases of approximately 4.5 cm contain ing a portion of the liver. An additional small hernia with diastases of 4.4 cm illustrates a portion of the antimesenteric transverse colon. Demineralized appearance of the bones. Degenerative changes of the spine and hips. Intratrochanteric nail with medullary anayeli of the left femur. IMPRESSION: 1. Trace pleural effusions with left greater than right bibasilar opacities suggestive of an infectio us or inflammatory pneumonitis with bronchiolitis. Please refer to the chest CT from 08/15/2021 for ad ditional findings. 2. No bowel obstruction or bowel wall thickening. 3. No adenopathy or evidence of metastatic disease within the abdomen or pelvis. 4. Splenomegaly. 5. Additional findings as above. ACT 112: Negative or not required by law. The above report was generated using voice recognition software. It may contain grammatical, syntax o r spelling errors. Dictated: 08/16/2021 11:37 AM Transcribed: 08/16/2021 12:43 PM Ananya [id number] [email or web address] Electronically signed by: Michael Zaldivar M.D. 08/16/2021 12:51 PM
[2021-08-16] MEDS ORDERED: AZITHROMYCIN 500 MG in DEXTROSE 5% 250 ML IV ONE (13:00)
--- NOTE | 2021-08-16 13:17 | Electrocardiogram Report ---
Test Reason : Blood Pressure : / mmHG Vent. Rate : 094 BPM Atrial Rate : 094 BPM P-R Int : 218 ms QRS Dur : 104 ms QT Int : 402 ms P-R-T Axes : 067 124 207 degrees QTc Int : 502 ms Sinus rhythm with 1st degree A-V block Low voltage QRS Cannot rule out Lateral infarct Poor R wave progression, consider anterior IL vs. lead placement vs. LVH T wave abnormality, consider anterolateral ischemia Prolonged QT Abnormal ECG When compared with ECG of 14-AUG-2021 16:57, QRS axis Shifted right Inverted T waves have replaced nonspecific T wave abnormality in Anterolateral leads Confirmed by Hansel Jason ([id number]) on 08/16/2021 1:16:27 PM Referred By: REFERRED SELF Confirmed By:Hansel Jason
--- NOTE | 2021-08-16 14:16 | Palliative Care Progress Note ---
Date of Service August 16, 2021 Assessment & Plan (1) Weakness: Plan: Lives with her daughter, Mary, but has her own space and is able to do some basic ADLs. (2) Palliative care encounter: Plan: Pulmonary nodule very suspicious for malignancy. Family is considering how far to pursue further workup of this. I was not able to reach Mary or Laura. I did speak to Sol who told me that her mother and aunt are going to talk with Michelle this evening to get a better understanding of her thoughts on this. Michelle does have some insight into her illness. She knows that there is a mass in her lung. I asked her what she thought about that and her response was, "I would want you to do what you need to do". When I asked her to elaborate on that, she told me that she wanted to get better but couldn't really say what that would look like. I asked her if she felt like there was anything that she would not want us to do for her care and she said that she couldn't think of anything. Sol said that the family was leaning toward pursuing bronchoscopy with lavage but understood that this may not provide the information that we want. I will follow up with Mary tomorrow after they have a chance to talk. (3) COPD exacerbation: (4) Pulmonary nodule: (5) Sepsis: (6) Non-ST elevation MN (NSTEMI): Admission and Anticipated Discharge Date Admission Date: August 14, 2021 Review of Systems Review of Systems: [place] Symptom Assessment Scale Pain 0/3 Dyspnea 0/3 Fatigue 1/3 Anorexia 0/3 Drowsiness 0/3 Palliative Performance Score 40% Physical Exam Constitutional: no acute distress Respiratory: normal respiratory effort; no labored breathing Cardiovascular: Rate/Rhythm: regular rate and regular rhythm Musculoskeletal: Extremities: + muscle atrophy Neurologic: awake and + confused Results & Data ([facility]) Vital Signs (Past 12 Hours) Vital Signs Temp Pulse Resp BP Pulse Ox 08/16/21 12:49 97.9 F 94 H 20 108/62 94 08/16/21 07:50 97.9 F 89 20 105/58 L 97 08/16/21 07:36 89 20 97 08/16/21 02:53 97.7 F 59 L 16 102/64 92 PG Care Time/CCT Total # of Minutes Spent Total Time Spent: 40 Total Time Spent with Patient: Total time spent is greater than 50% in coordination of care (as documented) at patient's floor/unit and/or counseling patient: goals of care, family update and support Coding Level of Care Code 31210 Subseq Hosp Care Lvl 3 Diagnoses Weakness R53.1 Palliative care encounter Z51.5 COPD exacerbation J44.1 Pulmonary nodule R91.1 Sepsis A41.9 Sepsis acute organ dysfunction status: unspecified Sepsis type: sepsis due to unspecified organism Non-ST elevation MN (NSTEMI) I21.4 (1) Sepsis Sepsis acute organ dysfunction status: unspecified Sepsis type: sepsis due to unspecified organism Qualified Code(s): A41.9 - Sepsis, unspecified organism
--- NOTE | 2021-08-16 18:16 | Hospitalist Progress Note ---
Date of Service August 16, 2021 Assessment & Plan (1) COPD exacerbation: (2) Elevated troponin: (3) Pulmonary nodule: (4) CKD (chronic kidney disease), stage III: (5) HTN (hypertension): (6) Hyperlipidemia: (7) Depression: Plan: Present on admission with worsening shortness of breath, fever and weakness Exposed to rhinovirus and RSV from grand children COVID-19 negative and procalcitonin negative RSV positive Chest x-ray on admission showed no acute process CT chest showed Multiple pulmonary nodules as detailed above. Large solid nodule with lobulated contour within paramediastinal aspect of the right upper lobe is highly concerning for malignancy. Continue supportive therapy Pulmonary medicine consulted Will change solumedrol to prednisone 40mg daily Continue oxygen supplement Continue flutter valve, guaifenesin and incentive spirometry Clinically improved significantly Per pulm - think the best possible patient will be have a PET/CT done as an outpatient Patient's family will have enough time to decide if they want to proceed with any diagnostic procedures - would recommend giving doxycycline for at least 5 days for tree-in-bud opacities which the patient has Recommend continuing with Mucomyst as well as hypertonic nebulized saline along with flutter valve at home Right upper Lobe Mass CT chest showed multiple pulmonary nodules as detailed above. Large solid nodule with lobulated contour within paramediastinal aspect of the right upper lobe is highly concerning for malignancy. Spoke to Dr. Reynolds that suggested to push the last CT chest imaging from April 2021 to [place] PACS that he could compare it to the current CT chest Mass Significant increase in size since November 2020 Dr. Reynolds discussed finding over the phone with pt's grand daughter Unfortunately the location is not accessible to Bronch as per Dr. Reynolds Recommend outpatient PET scan Palliative care on board for goals of care COPD COPD with emphysema Patient on Flovent and Spiriva at home Pulm recommended to transition to Anoro/Stiolto or Trelegy and discontinue Flovent on discharge. 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 CT of the abdomen with IV contrast obtained to r/o any mas Thrombocytopenia Platelet 87 No sign of active bleeding Continue monitor closely Transaminitis LFT increase with AST 90 and ALT 86, now downtrending CT abdomen obtained as above DVT Prophylaxis: Heparin subQ BID Code Status: Full code Admission and Anticipated Discharge Date Admission Date: August 14, 2021 Subjective Patient was seen and examined for follow-up of shortness of breath Sitting in chair with no acute distress on nebulizer treatment Reports feeling much better since admission She said that her breathing feels better Denies any chest pain, palpitation, dizziness, and fever Pulmonology and palliative care team consulted Denies any chest pain, palpitation, dizziness, and fever Discussed with pulmonary medicine, likely recommend PET scan as outpatient and family and patient can further decide if they want to proceed with any other procedures. Talked to patient's granddaughter, who advised me to reach out to her aunt Mary (who is POA as well as Laura ) phone #[phone]. Per granddaughter, they were supposed to discuss further this evening, and therefore I let her know that I would be calling in the morning to check on them/any decisions made. Review of Systems Review of Systems: All systems reviewed & are unremarkable except as noted in Subjective Physical Exam Physical Exam: General- No acute distress Head- atraumatic Eyes- PERRL, EOMI, ENT- oropharynx clear Neck- supple, no JVD Lungs- +decrease BS, +rhonchi Heart- regular rhythm; Abdomen- normal bowel sounds, soft, nontender Extremities- no calf tenderness, moves extremities Neuro- alert, oriented x 3; PERRL, EOMI; no facial palsy; no dysarthria, moves extremities Skin- warm & dry Results & Data Results & Data ([facility]) Vital Signs (Past 12 Hours) Vital Signs Temp Pulse Resp BP Pulse Ox 08/16/21 16:11 36.4 C L 94 H 20 126/73 95 08/16/21 15:15 91 H 20 95 08/16/21 12:49 36.6 C 94 H 20 108/62 94 08/16/21 07:50 36.6 C 89 20 105/58 L 97 08/16/21 07:36 89 20 97 Laboratory Results 08/16/21 08/16/21 Range/Units 06:09 06:09 WBC 6.22 (4.8-10.8) K/uL RBC 3.61 L (4.2-5.4) M/uL Hgb 10.7 L (12.0-16.0) g/dL Hct 32.6 L (37-47) % MCV 90.3 (80-100) fL MCH 29.6 (25-34) pg MCHC 32.8 (32-36) g/dL RDW Std Deviation 48.8 H (36.4-46.3) fL RDW Coeff of [place] 14.7 H (11.5-14.5) % Plt Count 105 L (130-400) K/uL MPV 10.1 (7.4-10.4) fL Sodium 137 (136-145) mmol/L Potassium 4.5 (3.5-5.1) mmol/L Chloride 108 H (98-107) mmol/L Carbon Dioxide 24 (21-32) mmol/L Anion Gap 5.0 (3-11) BUN 49 H (7-18) mg/dl Creatinine 0.98 (0.6-1.2) mg/dl Est Cr Clr Drug Dosing 36.6 ml/min Est GFR ( Amer) 62.3 ml/min Est GFR (Non-Af Amer) 53.7 ml/min BUN/Creatinine Ratio 50.2 H (10-20) Glucose 120 H (70-99) mg/dl Calcium 8.6 (8.5-10.1) mg/dl Total Bilirubin 0.4 (0.2-1) mg/dl AST 55 H (15-37) U/L ALT 77 (12-78) U/L Alkaline Phosphatase 222 H (45-117) U/L Total Protein 6.3 L (6.4-8.2) gm/dl Albumin 2.7 L (3.4-5.0) gm/dl Globulin 3.6 (2.5-4.0) gm/dl Albumin/Globulin Ratio 0.8 L (0.9-2) Medications Administered Current Inpatient Medications Acetylcysteine (Acetylcysteine 20% Inhal Soln 4ml Dispensed By Resp.) 5 ml INH Q12R ALEX Stop: 09/14/21 08:29 Last Admin: 08/16/21 07:36 Dose: 5 ml Documented by: Albuterol (Albut/Ipratrop 3mg/0.5mg Neb 3 Ml Vial) 3 ml NEB QIDR ALEX Stop: 09/13/21 14:59 Last Admin: 08/16/21 15:13 Dose: 3 ml Documented by: Aspirin (Aspirin 81 Mg Ectab) 81 mg PO DAILY ALEX Stop: 09/14/21 08:59 Last Admin: 08/16/21 07:58 Dose: 81 mg Documented by: Guaifenesin (Guaifenesin 600 Mg Tabcr) 1,200 mg PO BID ALEX Stop: 09/13/21 20:59 Last Admin: 08/16/21 07:59 Dose: 1,200 mg Documented by: Guaifenesin (Guaifenesin 600 Mg Tabcr) 600 mg PO Q12 ALEX Stop: 09/13/21 20:59 Last Admin: 08/16/21 07:59 Dose: 600 mg Documented by: Heparin Sodium (Porcine) (Heparin Sod 5,000 Unit/0.5 Ml Vial) 5,000 units SQ Q12 ALEX Stop: 09/13/21 20:59 Last Admin: 08/16/21 08:00 Dose: 5,000 units Documented by: Doxycycline Hyclate 100 mg/ (Dextrose) 110 mls @ 50 mls/hr IV Q12H ALEX Stop: 08/21/21 18:14 Methylprednisolone 40 mg/ (Syringe) 0.64 mls @ 1.5 mls/min IV DAILY ALEX Stop: 09/16/21 08:59 Pravastatin Sodium (Pravastatin Sod 40 Mg Tab) 40 mg PO HS ALEX Stop: 09/13/21 20:59 Last Admin: 08/15/21 20:27 Dose: 40 mg Documented by: Sertraline HCl (Sertraline Hcl 100 Mg Tablet) 100 mg PO QPM ALEX Stop: 09/13/21 20:59 Last Admin: 08/15/21 20:27 Dose: 100 mg Documented by: Sertraline HCl (Sertraline Hcl 50 Mg Tablet) 50 mg PO QPM ALEX Stop: 09/13/21 20:59 Last Admin: 08/15/21 20:27 Dose: 50 mg Documented by: Sodium Chloride (Sodium Chlor 7% 4 Ml Neb) 4 ml NEB BIDR ALEX Stop: 09/14/21 18:59 Last Admin: 08/16/21 07:36 Dose: 4 ml Documented by: Umeclidinium/Vilanterol (Umeclidinium/Vilanterol 62.5/25mcg 7 Puffs/Inhaler) 1 puffs INH DAILY ALEX Stop: 09/14/21 08:59 Last Admin: 08/16/21 07:59 Dose: 1 puffs Documented by: Voriconazole (Voriconazole 200 Mg Tablet) 400 mg PO QPM ALEX Stop: 08/21/21 20:59 Last Admin: 08/15/21 20:27 Dose: 400 mg Documented by: Voriconazole (Voriconazole 200 Mg Tablet) 200 mg PO QAM ALEX Stop: 08/22/21 08:59 Last Admin: 08/16/21 07:59 Dose: 200 mg Documented by: (1) Depression Active/Remission status: remission status unspecified Depression Type: major depressive disorder Major depression recurrence: unspecified whether recurrent Qualified Code(s): F32.9 - Major depressive disorder, single episode, unspecified (2) Hyperlipidemia Hyperlipidemia type: unspecified Qualified Code(s): E78.5 - Hyperlipidemia, unspecified (3) HTN (hypertension) Hypertension type: essential hypertension Qualified Code(s): I10 - Essential (primary) hypertension
[2021-08-16] MEDS: DOXYCYCLINE HYCLATE 100 MG in DEXTROSE 5% 100 ML IV SCH (19:21)
[2021-08-16] MEDS: PRAVASTATIN SOD 40 MG TAB PO SCH (21:13)
[2021-08-16] MEDS: SERTRALINE HCL 50 MG TABLET PO SCH (21:13)
[2021-08-16] MEDS: SERTRALINE HCL 100 MG TABLET PO SCH (21:13)
[2021-08-17] MEDS: SODIUM CHLOR 7% 4 ML NEB NEB SCH ×2 (07:22→19:48)
[2021-08-17] MEDS: ALBUT/IPRATROP 3MG/0.5MG NEB 3 ML VIAL NEB SCH ×4 (07:22→19:30)
[2021-08-17] MEDS: ACETYLCYSTEINE 20% INHAL SOLN 4ML ***DISPENSED BY RESP. INH SCH ×2 (07:22→19:30)
[2021-08-17] MEDS: guaiFENesin 600 MG TABCR PO SCH ×4 (07:43→20:57)
[2021-08-17] MEDS: ASPIRIN 81 MG ECTAB PO SCH (07:43)
[2021-08-17] MEDS: HEPARIN SOD 5,000 UNIT/0.5 ML VIAL SQ SCH ×2 (07:43→20:57)
[2021-08-17] MEDS: VORICONAZOLE 200 MG TABLET PO SCH ×2 (07:43→20:56)
[2021-08-17] MEDS: methylPREDNISolone 40 MG in SYRINGE 0 ML IV SCH (07:43)
[2021-08-17] MEDS: UMECLIDINIUM/VILANTEROL 62.5/25MCG 7 PUFFS/INHALER INH SCH (07:44)
--- NOTE | 2021-08-17 09:10 | Hospitalist Progress Note ---
Date of Service August 17, 2021 Assessment & Plan (1) COPD exacerbation: (2) Elevated troponin: (3) Pulmonary nodule: (4) CKD (chronic kidney disease), stage III: (5) HTN (hypertension): (6) Hyperlipidemia: (7) Depression: Plan: Present on admission with worsening shortness of breath, fever and weakness Exposed to rhinovirus and RSV from grand children COVID-19 negative and procalcitonin negative RSV positive Chest x-ray on admission showed no acute process CT chest showed Multiple pulmonary nodules as detailed above. Large solid nodule with lobulated contour within paramediastinal aspect of the right upper lobe is highly concerning for malignancy. Continue supportive therapy Pulmonary medicine consulted Will change solumedrol to prednisone 40mg daily Continue oxygen supplement Continue flutter valve, guaifenesin and incentive spirometry Clinically improved significantly Per pulm - think the best possible patient will be have a PET/CT done as an outpatient Patient's family will have enough time to decide if they want to proceed with any diagnostic procedures - would recommend giving doxycycline for at least 5 days for tree-in-bud opacities which the patient has Recommend continuing with Mucomyst as well as hypertonic nebulized saline along with flutter valve at home Right upper Lobe Mass CT chest showed multiple pulmonary nodules as detailed above. Large solid nodule with lobulated contour within paramediastinal aspect of the right upper lobe is highly concerning for malignancy. Spoke to Dr. Reynolds that suggested to push the last CT chest imaging from April 2021 to [place] PACS that he could compare it to the current CT chest Mass Significant increase in size since November 2020 Dr. Reynolds discussed finding over the phone with pt's grand daughter Unfortunately the location is not accessible to Bronch as per Dr. Reynolds Recommend outpatient PET scan Palliative care on board for goals of care COPD COPD with emphysema Patient on Flovent and Spiriva at home Pulm recommended to transition to Anoro/Stiolto or Trelegy and discontinue Flovent on discharge. 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 CT of the abdomen with IV contrast obtained to r/o any mas Thrombocytopenia Platelet 87 No sign of active bleeding Continue monitor closely Transaminitis LFT increase with AST 90 and ALT 86, now downtrending CT abdomen obtained as above DVT Prophylaxis: Heparin subQ BID Code Status: Full code Admission and Anticipated Discharge Date Admission Date: August 14, 2021 Subjective Patient was seen and examined for follow-up of shortness of breath Laying in bed in no acute distress Reports feeling much better since admission She said that her breathing feels better Denies any chest pain, palpitation, dizziness, and fever Pulmonology and palliative care team consulted Discussed with pulmonary medicine yesterday, likely recommend PET scan as outpatient and family and patient can further decide if they want to proceed with any other procedures. Talked to patient's daughter Mary at [phone] this morning, who is patient's POA along with Laura her sister. For now they believe they will proceed with PET scan first. Review of Systems Review of Systems: All systems reviewed & are unremarkable except as noted in Subjective Physical Exam Physical Exam: General- No acute distress Head- atraumatic Eyes- PERRL, EOMI, ENT- oropharynx clear Neck- supple, no JVD Lungs- +decrease BS, +rhonchi Heart- regular rhythm; Abdomen- normal bowel sounds, soft, nontender Extremities- no calf tenderness, moves extremities Neuro- alert, oriented x 3; PERRL, EOMI; no facial palsy; no dysarthria, moves extremities Skin- warm & dry Results & Data Results & Data ([facility]) Vital Signs (Past 12 Hours) Vital Signs Pulse Resp BP Pulse Ox 08/17/21 07:26 76 16 95 08/16/21 23:00 96 H 20 115/73 98 Laboratory Results 08/17/21 08/17/21 Range/Units 09:09 09:09 WBC 8.31 (4.8-10.8) K/uL RBC 4.03 L (4.2-5.4) M/uL Hgb 11.9 L (12.0-16.0) g/dL Hct 36.5 L (37-47) % MCV 90.6 (80-100) fL MCH 29.5 (25-34) pg MCHC 32.6 (32-36) g/dL RDW Std Deviation 49.5 H (36.4-46.3) fL RDW Coeff of Wayne 14.9 H (11.5-14.5) % Plt Count 133 (130-400) K/uL MPV 10.5 H (7.4-10.4) fL Sodium 139 (136-145) mmol/L Potassium 4.4 (3.5-5.1) mmol/L Chloride 109 H (98-107) mmol/L Carbon Dioxide 21 (21-32) mmol/L Anion Gap 9.0 (3-11) BUN 49 H (7-18) mg/dl Creatinine 1.20 (0.6-1.2) mg/dl Est Cr Clr Drug Dosing 29.9 ml/min Est GFR ( Amer) 48.7 ml/min Est GFR (Non-Af Amer) 42.1 ml/min BUN/Creatinine Ratio 40.6 H (10-20) Glucose 125 H (70-99) mg/dl Calcium 9.1 (8.5-10.1) mg/dl Phosphorus 3.1 (2.5-4.9) mg/dl Magnesium 2.6 H (1.8-2.4) mg/dl Medications Administered Current Inpatient Medications Acetylcysteine (Acetylcysteine 20% Inhal Soln 4ml Dispensed By Resp.) 5 ml INH Q12R ALEX Stop: 09/14/21 08:29 Last Admin: 08/17/21 07:22 Dose: 5 ml Documented by: Albuterol (Albut/Ipratrop 3mg/0.5mg Neb 3 Ml Vial) 3 ml NEB QIDR ALEX Stop: 09/13/21 14:59 Last Admin: 08/17/21 07:22 Dose: 3 ml Documented by: Aspirin (Aspirin 81 Mg Ectab) 81 mg PO DAILY ALEX Stop: 09/14/21 08:59 Last Admin: 08/17/21 07:43 Dose: 81 mg Documented by: Guaifenesin (Guaifenesin 600 Mg Tabcr) 1,200 mg PO BID ALEX Stop: 09/13/21 20:59 Last Admin: 08/17/21 07:43 Dose: 1,200 mg Documented by: Guaifenesin (Guaifenesin 600 Mg Tabcr) 600 mg PO Q12 ALEX Stop: 09/13/21 20:59 Last Admin: 08/17/21 07:43 Dose: 600 mg Documented by: Heparin Sodium (Porcine) (Heparin Sod 5,000 Unit/0.5 Ml Vial) 5,000 units SQ Q12 ALEX Stop: 09/13/21 20:59 Last Admin: 08/17/21 07:43 Dose: 5,000 units Documented by: Doxycycline Hyclate 100 mg/ (Dextrose) 110 mls @ 50 mls/hr IV Q12H ALEX Stop: 08/21/21 18:59 Last Infusion: 08/16/21 21:50 Dose: Infused Documented by: Methylprednisolone 40 mg/ (Syringe) 0.64 mls @ 1.5 mls/min IV DAILY ALEX Stop: 09/16/21 08:59 Last Admin: 08/17/21 07:43 Dose: 1.5 mls/min Documented by: Pravastatin Sodium (Pravastatin Sod 40 Mg Tab) 40 mg PO HS ALEX Stop: 09/13/21 20:59 Last Admin: 08/16/21 21:13 Dose: 40 mg Documented by: Sertraline HCl (Sertraline Hcl 100 Mg Tablet) 100 mg PO QPM ALEX Stop: 09/13/21 20:59 Last Admin: 08/16/21 21:13 Dose: 100 mg Documented by: Sertraline HCl (Sertraline Hcl 50 Mg Tablet) 50 mg PO QPM ALEX Stop: 09/13/21 20:59 Last Admin: 08/16/21 21:13 Dose: 50 mg Documented by: Sodium Chloride (Sodium Chlor 7% 4 Ml Neb) 4 ml NEB BIDR ALEX Stop: 09/14/21 18:59 Last Admin: 08/17/21 07:22 Dose: 4 ml Documented by: Umeclidinium/Vilanterol (Umeclidinium/Vilanterol 62.5/25mcg 7 Puffs/Inhaler) 1 puffs INH DAILY ALEX Stop: 09/14/21 08:59 Last Admin: 08/17/21 07:44 Dose: 1 puffs Documented by: Voriconazole (Voriconazole 200 Mg Tablet) 400 mg PO QPM ALEX Stop: 08/21/21 20:59 Last Admin: 08/16/21 21:13 Dose: 400 mg Documented by: Voriconazole (Voriconazole 200 Mg Tablet) 200 mg PO QAM ALEX Stop: 08/22/21 08:59 Last Admin: 08/17/21 07:43 Dose: 200 mg Documented by: (1) Depression Active/Remission status: remission status unspecified Depression Type: major depressive disorder Major depression recurrence: unspecified whether recurrent Qualified Code(s): F32.9 - Major depressive disorder, single episode, unspecified (2) Hyperlipidemia Hyperlipidemia type: unspecified Qualified Code(s): E78.5 - Hyperlipidemia, unspecified (3) HTN (hypertension) Hypertension type: essential hypertension Qualified Code(s): I10 - Essential (primary) hypertension
[2021-08-17] MEDS: DOXYCYCLINE HYCLATE 100 MG in DEXTROSE 5% 100 ML IV SCH ×2 (09:22→20:55)
[2021-08-17 09:30] LABS: Hematocrit (blood only) 36.5 % (37-47); Hemoglobin 11.9 g/dL (12.0-16.0); Mean Corpuscular Hemoglobin 29.5 pg (25-34); Mean Corpuscular Hgb Conc 32.6 g/dL (32-36); Mean Corpuscular Volume 90.6 fL (80-100); Mean Platelet Volume 10.5 fL (7.4-10.4); Platelet Count 133 K/uL (130-400); RDW Coefficient of Variation 14.9 % (11.5-14.5); RDW Standard Deviation 49.5 fL (36.4-46.3); Red Blood Count 4.03 M/uL (4.2-5.4); White Blood Count 8.31 K/uL (4.8-10.8)
[2021-08-17 09:54] LABS: BUN Creatinine Ratio 40.6 (10-20); Calcium 9.1 mg/dl (8.5-10.1); Creatinine Clr Calc Pharmacy 29.9 ml/min; Est GFR (African American) 48.7 ml/min; Est GFR (Non-African American) 42.1 ml/min; Magnesium 2.6 mg/dl (1.8-2.4); Potassium 4.4 mmol/L (3.5-5.1)
[2021-08-17 09:55] LABS: Phosphorus 3.1 mg/dl (2.5-4.9)
--- NOTE | 2021-08-17 15:49 | Palliative Care Progress Note ---
Date of Service August 17, 2021 Assessment & Plan (1) Palliative care encounter: Plan: Per my discussion with Sol yesterday, Michelle's daughters, Laura and Mary, were going to talk with her last night about plan of care. Michelle does not recall whether this conversation occurred. I called Mary x 2 with no answer. Will follow. Admission and Anticipated Discharge Date Admission Date: August 14, 2021 Subjective Denies discomfort or concerns. When I asked her if she talked with her daughters last night, she answered "I didn't get home until late and I missed their call" Review of Systems Review of Systems: [place] Symptom Assessment Scale Pain 0/3 Anxiety 0/3 Dyspnea 0/3 FAtigue 2/3 Palliative Performance Score 40% Physical Exam Constitutional: comfortable Respiratory: normal respiratory effort and + labored breathing Neurologic: moves all extremities and awake Speech / Cognition: + abnormal cognition Results & Data ([facility]) Vital Signs (Past 12 Hours) Vital Signs Temp Pulse Resp BP Pulse Ox 08/17/21 12:00 98.2 F 94 H 20 112/68 94 08/17/21 10:54 92 H 18 96 08/17/21 07:26 76 16 95 PG Care Time/CCT Total # of Minutes Spent Total Time Spent with Patient: Total time spent is greater than 50% in coordination of care (as documented) at patient's floor/unit and/or counseling patient: Coding Level of Care Code 63871 Subseq Hosp Care Lvl 2 Diagnoses Palliative care encounter Z51.5
--- NOTE | 2021-08-17 17:30 | XRay Report ---
XR hip RT 2V w pelvis INDICATION: MN ^s/p fall TECHNIQUE: 2 views of the right hip and single frontal view of the pelvis were obtained. Comparison: None available at the time of this dictation. FINDINGS: There is no evidence of fracture, subluxation or dislocation. An intramedullary anayeli is noted in the l eft femur. The bones are anatomically aligned. Diffuse osteophyte formation is seen. There is right g reater than left degenerative changes in the femoroacetabular joints. Bones are demineralized. IMPRESSION: Degenerative changes as above without acute abnormality. ACT 112: Negative or not required by law. Electronically signed by: Richie Maradiaga M.D. 08/17/2021 5:29 PM
[2021-08-17] MEDS: PRAVASTATIN SOD 40 MG TAB PO SCH (20:56)
[2021-08-17] MEDS: SERTRALINE HCL 100 MG TABLET PO SCH (20:56)
[2021-08-17] MEDS: SERTRALINE HCL 50 MG TABLET PO SCH (20:56)
[2021-08-18] MEDS: DOXYCYCLINE HYCLATE 100 MG in DEXTROSE 5% 100 ML IV SCH ×2 (05:34→20:38)
[2021-08-18] MEDS: ALBUT/IPRATROP 3MG/0.5MG NEB 3 ML VIAL NEB SCH ×4 (07:56→19:14)
[2021-08-18] MEDS: ACETYLCYSTEINE 20% INHAL SOLN 4ML ***DISPENSED BY RESP. INH SCH ×2 (07:56→19:14)
[2021-08-18 08:08] LABS: Hematocrit (blood only) 34.2 % (37-47); Hemoglobin 11.2 g/dL (12.0-16.0); Mean Corpuscular Hemoglobin 29.5 pg (25-34); Mean Corpuscular Hgb Conc 32.7 g/dL (32-36); Mean Platelet Volume 10.1 fL (7.4-10.4); Platelet Count 121 K/uL (130-400); RDW Standard Deviation 49.6 fL (36.4-46.3); White Blood Count 6.81 K/uL (4.8-10.8)
[2021-08-18] MEDS: SODIUM CHLOR 7% 4 ML NEB NEB SCH ×2 (08:16→19:34)
[2021-08-18 08:40] LABS: BUN Creatinine Ratio 41.9 (10-20); Calcium 8.6 mg/dl (8.5-10.1); Creatinine Clr Calc Pharmacy 37.4 ml/min; Est GFR (African American) 63.8 ml/min; Est GFR (Non-African American) 55.1 ml/min; Magnesium 2.5 mg/dl (1.8-2.4); Potassium 4.2 mmol/L (3.5-5.1)
[2021-08-18 08:41] LABS: Phosphorus 2.5 mg/dl (2.5-4.9)
[2021-08-18] MEDS: methylPREDNISolone 40 MG in SYRINGE 0 ML IV SCH (09:31)
[2021-08-18] MEDS: ASPIRIN 81 MG ECTAB PO SCH (09:32)
[2021-08-18] MEDS: guaiFENesin 600 MG TABCR PO SCH ×4 (09:33→22:24)
[2021-08-18] MEDS: UMECLIDINIUM/VILANTEROL 62.5/25MCG 7 PUFFS/INHALER INH SCH (09:34)
[2021-08-18] MEDS: HEPARIN SOD 5,000 UNIT/0.5 ML VIAL SQ SCH ×2 (09:34→22:25)
[2021-08-18] MEDS: VORICONAZOLE 200 MG TABLET PO SCH ×2 (11:10→22:25)
--- NOTE | 2021-08-18 17:22 | Hospitalist Progress Note ---
Date of Service August 18, 2021 Assessment & Plan (1) COPD exacerbation: (2) Elevated troponin: (3) Pulmonary nodule: (4) CKD (chronic kidney disease), stage III: (5) HTN (hypertension): (6) Hyperlipidemia: (7) Depression: Plan: Present on admission with worsening shortness of breath, fever and weakness Exposed to rhinovirus and RSV from grand children COVID-19 negative and procalcitonin negative RSV positive Chest x-ray on admission showed no acute process CT chest showed Multiple pulmonary nodules as detailed above. Large solid nodule with lobulated contour within paramediastinal aspect of the right upper lobe is highly concerning for malignancy. Continue supportive therapy Pulmonary medicine consulted Will change solumedrol to prednisone 40mg daily Continue oxygen supplement Continue flutter valve, guaifenesin and incentive spirometry Clinically improved significantly Per pulm - think the best possible patient will be have a PET/CT done as an outpatient Patient's family will have enough time to decide if they want to proceed with any diagnostic procedures - would recommend giving doxycycline for at least 5 days for tree-in-bud opacities which the patient has Recommend continuing with Mucomyst as well as hypertonic nebulized saline along with flutter valve at home Right upper Lobe Mass CT chest showed multiple pulmonary nodules as detailed above. Large solid nodule with lobulated contour within paramediastinal aspect of the right upper lobe is highly concerning for malignancy. Spoke to Dr. Reynolds that suggested to push the last CT chest imaging from April 2021 to [place] PACS that he could compare it to the current CT chest Mass Significant increase in size since November 2020 Dr. Reynolds discussed finding over the phone with pt's grand daughter Unfortunately the location is not accessible to Bronch as per Dr. Reyonlds Recommend outpatient PET scan Palliative care on board for goals of care COPD COPD with emphysema Patient on Flovent and Spiriva at home Pulm recommended to transition to Anoro/Stiolto or Trelegy and discontinue Flovent on discharge. 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 CT of the abdomen with IV contrast obtained to r/o any mas Thrombocytopenia Platelet 87 No sign of active bleeding Continue monitor closely Transaminitis LFT increase with AST 90 and ALT 86, now downtrending CT abdomen obtained as above DVT Prophylaxis: Heparin subQ BID Code Status: Full code Admission and Anticipated Discharge Date Admission Date: August 14, 2021 Subjective Patient was seen and examined for follow-up of shortness of breath Laying in bed in no acute distress Reports feeling much better since admission She said that her breathing feels better Denies any chest pain, palpitation, dizziness, or fever Pulmonology and palliative care team consulted Discussed with pulmonary medicine, likely recommend PET scan as outpatient and family and patient can further decide if they want to proceed with any other procedures. Talked to patient's daughter Mary at [phone], who is patient's POA (along with Laura her sister). For now they believe they will proceed with PET scan first. Review of Systems Review of Systems: All systems reviewed & are unremarkable except as noted in Subjective Physical Exam Physical Exam: General- No acute distress Head- atraumatic Eyes- PERRL, EOMI, ENT- oropharynx clear Neck- supple, no JVD Lungs- +decrease BS, +rhonchi Heart- regular rhythm; Abdomen- normal bowel sounds, soft, nontender Extremities- no calf tenderness, moves extremities Neuro- alert, oriented x 3; PERRL, EOMI; no facial palsy; no dysarthria, moves extremities Skin- warm & dry Results & Data Results & Data ([facility]) Vital Signs (Past 12 Hours) Vital Signs Temp Pulse Resp BP BP Pulse Ox 08/18/21 15:29 90 18 94 08/18/21 15:20 36.7 C 95 H 18 121/71 94 08/18/21 12:17 36.7 C 86 19 121/73 93 08/18/21 11:54 91 H 18 94 08/18/21 07:58 86 18 96 08/18/21 07:07 36.9 C 88 18 131/78 94 Laboratory Results 08/18/21 08/18/21 Range/Units 07:41 07:41 WBC 6.81 (4.8-10.8) K/uL RBC 3.80 L (4.2-5.4) M/uL Hgb 11.2 L (12.0-16.0) g/dL Hct 34.2 L (37-47) % MCV 90.0 (80-100) fL MCH 29.5 (25-34) pg MCHC 32.7 (32-36) g/dL RDW Std Deviation 49.6 H (36.4-46.3) fL RDW Coeff of Wayne 15.0 H (11.5-14.5) % Plt Count 121 L (130-400) K/uL MPV 10.1 (7.4-10.4) fL Sodium 139 (136-145) mmol/L Potassium 4.2 (3.5-5.1) mmol/L Chloride 109 H (98-107) mmol/L Carbon Dioxide 24 (21-32) mmol/L Anion Gap 6.0 (3-11) BUN 40 H (7-18) mg/dl Creatinine 0.96 (0.6-1.2) mg/dl Est Cr Clr Drug Dosing 37.4 ml/min Est GFR ( Amer) 63.8 ml/min Est GFR (Non-Af Amer) 55.1 ml/min BUN/Creatinine Ratio 41.9 H (10-20) Glucose 81 (70-99) mg/dl Calcium 8.6 (8.5-10.1) mg/dl Phosphorus 2.5 (2.5-4.9) mg/dl Magnesium 2.5 H (1.8-2.4) mg/dl Medications Administered Current Inpatient Medications Acetylcysteine (Acetylcysteine 20% Inhal Soln 4ml Dispensed By Resp.) 5 ml INH Q12R ALEX Stop: 09/14/21 08:29 Last Admin: 08/18/21 07:56 Dose: 5 ml Documented by: Albuterol (Albut/Ipratrop 3mg/0.5mg Neb 3 Ml Vial) 3 ml NEB QIDR ALEX Stop: 09/13/21 14:59 Last Admin: 08/18/21 15:28 Dose: 3 ml Documented by: Aspirin (Aspirin 81 Mg Ectab) 81 mg PO DAILY ALEX Stop: 09/14/21 08:59 Last Admin: 08/18/21 09:32 Dose: 81 mg Documented by: Guaifenesin (Guaifenesin 600 Mg Tabcr) 1,200 mg PO BID ALEX Stop: 09/13/21 20:59 Last Admin: 08/18/21 09:33 Dose: 1,200 mg Documented by: Guaifenesin (Guaifenesin 600 Mg Tabcr) 600 mg PO Q12 ALEX Stop: 09/13/21 20:59 Last Admin: 08/18/21 09:33 Dose: 600 mg Documented by: Heparin Sodium (Porcine) (Heparin Sod 5,000 Unit/0.5 Ml Vial) 5,000 units SQ Q12 ALEX Stop: 09/13/21 20:59 Last Admin: 08/18/21 09:34 Dose: 5,000 units Documented by: Doxycycline Hyclate 100 mg/ (Dextrose) 110 mls @ 50 mls/hr IV Q12H ALEX Stop: 08/21/21 18:59 Last Infusion: 08/18/21 07:50 Dose: Infused Documented by: Methylprednisolone 40 mg/ (Syringe) 0.64 mls @ 1.5 mls/min IV DAILY ALEX Stop: 09/16/21 08:59 Last Admin: 08/18/21 09:31 Dose: 1.5 mls/min Documented by: Pravastatin Sodium (Pravastatin Sod 40 Mg Tab) 40 mg PO HS ALEX Stop: 09/13/21 20:59 Last Admin: 08/17/21 20:56 Dose: 40 mg Documented by: Sertraline HCl (Sertraline Hcl 100 Mg Tablet) 100 mg PO QPM ALEX Stop: 09/13/21 20:59 Last Admin: 08/17/21 20:56 Dose: 100 mg Documented by: Sertraline HCl (Sertraline Hcl 50 Mg Tablet) 50 mg PO QPM ALEX Stop: 09/13/21 20:59 Last Admin: 08/17/21 20:56 Dose: 50 mg Documented by: Sodium Chloride (Sodium Chlor 7% 4 Ml Neb) 4 ml NEB BIDR ALEX Stop: 09/14/21 18:59 Last Admin: 08/18/21 08:16 Dose: Not Given Documented by: Umeclidinium/Vilanterol (Umeclidinium/Vilanterol 62.5/25mcg 7 Puffs/Inhaler) 1 puffs INH DAILY ALEX Stop: 09/14/21 08:59 Last Admin: 08/18/21 09:34 Dose: 1 puffs Documented by: Voriconazole (Voriconazole 200 Mg Tablet) 400 mg PO QPM ALEX Stop: 08/21/21 20:59 Last Admin: 08/17/21 20:56 Dose: 400 mg Documented by: Voriconazole (Voriconazole 200 Mg Tablet) 200 mg PO QAM ALEX Stop: 08/22/21 08:59 Last Admin: 08/18/21 11:10 Dose: 200 mg Documented by: (1) Depression Active/Remission status: remission status unspecified Depression Type: major depressive disorder Major depression recurrence: unspecified whether recurrent Qualified Code(s): F32.9 - Major depressive disorder, single episode, unspecified (2) Hyperlipidemia Hyperlipidemia type: unspecified Qualified Code(s): E78.5 - Hyperlipidemia, unspecified (3) HTN (hypertension) Hypertension type: essential hypertension Qualified Code(s): I10 - Essential (primary) hypertension
[2021-08-18] MEDS ORDERED: FUROSEMIDE 10 MG in SYRINGE 0 ML IV ONE (18:00)
--- NOTE | 2021-08-18 21:19 | CT Scan Report ---
CT head/brain wo con Clinical Indication: MN ^[facility]-2042 ^head trauma. Technique: Contiguous axial CT images of the head were acquired from the base of the skull to the neil sarah without intravenous contrast administration. Images were viewed in brain, subdural and bone windo ws. Automated dose lowering techniques and/or adjustment according to patient size were utilized for this exam. Comparison: Comparison is made to CT brain 11/20/2020 Findings: Areas of decreased attenuation are present in the periventricular and subcortical white matter bilate rally consistent with small vessel ischemic disease. Generalized cerebral atrophy with commensurate e nlargement of the ventricles, sulci, and cisterns is also present. There is no acute intracranial hem orrhage or evidence of acute territorial infarction. No shift of the midline structures, mass effect, or extra-axial abnormalities are shown. Atherosclerotic calcifications are present in the intracran ial segments of the internal carotid arteries. Calcification of the choroid plexus noted. An air-fluid level is seen in the bilateral maxillary sinuses. The orbits appear normal. There are n o acute fractures of the calvaria or scalp swelling. Impression: No acute intracranial hemorrhage, evidence of acute territorial infarction, or other acute intracrani al disease process. ACT 112: Negative or not required by law. Electronically signed by: Richie Maradiaga M.D. 08/18/2021 9:18 PM
--- NOTE | 2021-08-18 21:21 | CT Scan Report ---
CT cervical spine wo con INDICATION: [place] ^head trauma TECHNIQUE: Multidetector row helical CT of the cervical spine was performed without administration of intravenous contrast. Coronal and sagittal reformations were obtained. Automated dose lowering techn iques and/or adjustment according to patient size were utilized for this exam. Comparison: Comparison is made to CT cervical spine 08/08/2016 FINDINGS: No acute fractures or subluxations are identified. There is straightening of the normal cervical lord osis. Degenerative changes are seen most prominent at C5-C6 and C6-C7 with disc space narrowing, oste ophyte formation, and facet arthropathy noted. The prevertebral soft tissues are unremarkable. IMPRESSION: Degenerative changes without evidence of acute abnormality. ACT 112: Negative or not required by law. Electronically signed by: Richie Maradiaga M.D. 08/18/2021 9:20 PM
[2021-08-18] MEDS: SERTRALINE HCL 100 MG TABLET PO SCH (22:25)
[2021-08-18] MEDS: SERTRALINE HCL 50 MG TABLET PO SCH (22:25)
[2021-08-18] MEDS: PRAVASTATIN SOD 40 MG TAB PO SCH (22:25)
[2021-08-19] MEDS: DOXYCYCLINE HYCLATE 100 MG in DEXTROSE 5% 100 ML IV SCH ×2 (07:47→22:04)
[2021-08-19] MEDS: predniSONE 20 MG TAB PO SCH (07:51)
[2021-08-19] MEDS: UMECLIDINIUM/VILANTEROL 62.5/25MCG 7 PUFFS/INHALER INH SCH (07:51)
[2021-08-19] MEDS: guaiFENesin 600 MG TABCR PO SCH ×4 (07:52→22:11)
[2021-08-19] MEDS: ASPIRIN 81 MG ECTAB PO SCH (07:52)
[2021-08-19] MEDS: VORICONAZOLE 200 MG TABLET PO SCH ×2 (07:53→22:12)
[2021-08-19] MEDS: HEPARIN SOD 5,000 UNIT/0.5 ML VIAL SQ SCH ×2 (07:53→22:10)
[2021-08-19 08:39] LABS: Hematocrit (blood only) 38.3 % (37-47); Hemoglobin 12.6 g/dL (12.0-16.0); Mean Corpuscular Hemoglobin 29.6 pg (25-34); Mean Corpuscular Hgb Conc 32.9 g/dL (32-36); Mean Corpuscular Volume 90.1 fL (80-100); Mean Platelet Volume 10.2 fL (7.4-10.4); Platelet Count 117 K/uL (130-400); RDW Coefficient of Variation 14.9 % (11.5-14.5); RDW Standard Deviation 49.4 fL (36.4-46.3); Red Blood Count 4.25 M/uL (4.2-5.4); White Blood Count 7.42 K/uL (4.8-10.8)
--- NOTE | 2021-08-19 08:50 | XRay Report ---
XR hip SARAH 2v w pelvis INDICATION: MN ^Y ^hip pain, post fall TECHNIQUE: 2 views of the bilateral hips and single frontal view of the pelvis were obtained. Comparison: None available at the time of this dictation. FINDINGS: Patient is status post left femoral anayeli placement. There is no evidence of acute fracture. Alignment is normal. Degenerative changes are seen in the visualized skeleton. The bony mineralization is bryce l. IMPRESSION: No evidence of acute bony injury. ACT 112: Negative or not required by law. Electronically signed by: Richie Maradiaga M.D. 08/19/2021 8:49 AM
[2021-08-19 08:54] LABS: BUN Creatinine Ratio 39.6 (10-20); Creatinine Clr Calc Pharmacy 35.9 ml/min; Est GFR (African American) 60.8 ml/min; Est GFR (Non-African American) 52.4 ml/min; Magnesium 2.4 mg/dl (1.8-2.4); Potassium 4.4 mmol/L (3.5-5.1)
[2021-08-19 08:55] LABS: Phosphorus 2.8 mg/dl (2.5-4.9)
[2021-08-19] MEDS: ACETYLCYSTEINE 20% INHAL SOLN 4ML ***DISPENSED BY RESP. INH SCH ×2 (09:32→20:07)
[2021-08-19] MEDS: ALBUT/IPRATROP 3MG/0.5MG NEB 3 ML VIAL NEB SCH ×4 (09:33→20:07)
[2021-08-19] MEDS: SODIUM CHLOR 7% 4 ML NEB NEB SCH ×2 (09:33→20:25)
--- NOTE | 2021-08-19 10:36 | Hospitalist Progress Note ---
Date of Service August 19, 2021 Assessment & Plan (1) COPD exacerbation: (2) Elevated troponin: (3) Pulmonary nodule: (4) CKD (chronic kidney disease), stage III: (5) HTN (hypertension): (6) Hyperlipidemia: (7) Depression: Plan: Present on admission with worsening shortness of breath, fever and weakness Exposed to rhinovirus and RSV from grand children COVID-19 negative and procalcitonin negative RSV positive Chest x-ray on admission showed no acute process CT chest showed Multiple pulmonary nodules as detailed above. Large solid nodule with lobulated contour within paramediastinal aspect of the right upper lobe is highly concerning for malignancy. Continue supportive therapy Pulmonary medicine consulted Will change solumedrol to prednisone 40mg daily Continue oxygen supplement Continue flutter valve, guaifenesin and incentive spirometry Clinically improved significantly Per pulmonary medicine - think the best possible patient will be have a PET/CT done as an outpatient Patient's family will have enough time to decide if they want to proceed with any diagnostic procedures - would recommend giving doxycycline for at least 5 days for tree-in-bud opacities which the patient has Recommend continuing with Mucomyst as well as hypertonic nebulized saline along with flutter valve at home Right upper Lobe Mass CT chest showed multiple pulmonary nodules as detailed above. Large solid nodule with lobulated contour within paramediastinal aspect of the right upper lobe is highly concerning for malignancy. Spoke to Dr. Reynolds that suggested to push the last CT chest imaging from April 2021 to [facility] P[facility] that he could compare it to the current CT chest Mass Significant increase in size since November 2020 Dr. Reynolds discussed finding over the phone with pt's grand daughter Unfortunately the location is not accessible to Bronch as per Dr. Reynolds Recommend outpatient PET scan Palliative care on board for goals of care COPD COPD with emphysema Patient on Flovent and Spiriva at home Pulm recommended to transition to Anoro/Stiolto or Trelegy and discontinue Flovent on discharge. 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 CT of the abdomen with IV contrast obtained to r/o any mas R hip pain/ leg pain Patient had a fall earlier while in the hospital, hit her buttocks, R hip, falling from bed. She did not have any pain yesterday (08/18) or soon after her fall. X-ray of pelvis and right hip were obtained and were negative. Family was updated. This morning (09/06 she reported no pain however after she ambulated with the nurse to bedside commode she reported pain in her right hip /leg. We will repeat imaging, will obtain CT pelvis right hip, right femur Thrombocytopenia Platelet 87 No sign of active bleeding Continue monitor closely Transaminitis LFT increase with AST 90 and ALT 86, now downtrending CT abdomen obtained as above DVT Prophylaxis: Heparin subQ BID Code Status: Full code Admission and Anticipated Discharge Date Admission Date: August 14, 2021 Subjective Patient was seen and examined for follow-up of shortness of breath Laying in bed in no acute distress Reports feeling much better since admission She said that her breathing feels better Denies any chest pain, palpitation, dizziness, or fever Pulmonology and palliative care team consulted Discussed with pulmonary medicine, likely recommend PET scan as outpatient and family and patient can further decide if they want to proceed with any other procedures. Talked to patient's daughter Mary at [phone], who is patient's POA (along with Laura her sister). For now they believe they will proceed with PET scan first. Patient had a fall earlier while in the hospital, hit her buttocks, R hip, falling from bed. She did not have any pain yesterday or soon after her fall. X-ray of pelvis and right hip were obtained and were negative. Family was updated. This morning she reported no pain however after she ambulated with the nurse to bedside commode she reported pain in her right hip /leg. We will repeat imaging, will obtain CT pelvis right hip, right femur Review of Systems Review of Systems: All systems reviewed & are unremarkable except as noted in Subjective Physical Exam Physical Exam: General- No acute distress Head- atraumatic Eyes- PERRL, EOMI, ENT- oropharynx clear Neck- supple, no JVD Lungs- +decrease BS, +rhonchi Heart- regular rhythm; Abdomen- normal bowel sounds, soft, nontender Extremities- no calf tenderness, moves extremities Neuro- alert, oriented x 3; PERRL, EOMI; no facial palsy; no dysarthria, moves extremities Skin- warm & dry Results & Data Results & Data ([facility]) Vital Signs (Past 12 Hours) Vital Signs Temp Pulse Pulse Resp BP Pulse Ox 08/19/21 10:22 84 20 95 08/19/21 07:35 36.6 C 88 18 123/75 94 08/19/21 04:29 36.6 C 84 18 136/64 94 08/19/21 02:00 88 08/18/21 22:50 36.5 C 88 18 143/78 H 96 Laboratory Results 08/19/21 08/19/21 Range/Units 08:04 08:04 WBC 7.42 (4.8-10.8) K/uL RBC 4.25 (4.2-5.4) M/uL Hgb 12.6 (12.0-16.0) g/dL Hct 38.3 (37-47) % MCV 90.1 (80-100) fL MCH 29.6 (25-34) pg MCHC 32.9 (32-36) g/dL RDW Std Deviation 49.4 H (36.4-46.3) fL RDW Coeff of Wayne 14.9 H (11.5-14.5) % Plt Count 117 L (130-400) K/uL MPV 10.2 (7.4-10.4) fL Sodium 140 (136-145) mmol/L Potassium 4.4 (3.5-5.1) mmol/L Chloride 107 (98-107) mmol/L Carbon Dioxide 25 (21-32) mmol/L Anion Gap 8.0 (3-11) BUN 40 H (7-18) mg/dl Creatinine 1.00 (0.6-1.2) mg/dl Est Cr Clr Drug Dosing 35.9 ml/min Est GFR ( Amer) 60.8 ml/min Est GFR (Non-Af Amer) 52.4 ml/min BUN/Creatinine Ratio 39.6 H (10-20) Glucose 87 (70-99) mg/dl Calcium 9.0 (8.5-10.1) mg/dl Phosphorus 2.8 (2.5-4.9) mg/dl Magnesium 2.4 (1.8-2.4) mg/dl Medications Administered Current Inpatient Medications Acetaminophen (Acetaminophen 325 Mg Tab) 650 mg PO Q4H PRN PRN Reason: Pain Stop: 09/18/21 10:06 Acetylcysteine (Acetylcysteine 20% Inhal Soln 4ml Dispensed By Resp.) 5 ml INH Q12R ALEX Stop: 09/14/21 08:29 Last Admin: 08/19/21 09:32 Dose: Not Given Documented by: Albuterol (Albut/Ipratrop 3mg/0.5mg Neb 3 Ml Vial) 3 ml NEB QIDR ALEX Stop: 09/13/21 14:59 Last Admin: 08/19/21 10:21 Dose: 3 ml Documented by: Aspirin (Aspirin 81 Mg Ectab) 81 mg PO DAILY ALEX Stop: 09/14/21 08:59 Last Admin: 08/19/21 07:52 Dose: 81 mg Documented by: Guaifenesin (Guaifenesin 600 Mg Tabcr) 1,200 mg PO BID ALEX Stop: 09/13/21 20:59 Last Admin: 08/19/21 07:52 Dose: 1,200 mg Documented by: Guaifenesin (Guaifenesin 600 Mg Tabcr) 600 mg PO Q12 ALEX Stop: 09/13/21 20:59 Last Admin: 08/19/21 07:53 Dose: 600 mg Documented by: Heparin Sodium (Porcine) (Heparin Sod 5,000 Unit/0.5 Ml Vial) 5,000 units SQ Q12 ALEX Stop: 09/13/21 20:59 Last Admin: 08/19/21 07:53 Dose: 5,000 units Documented by: Doxycycline Hyclate 100 mg/ (Dextrose) 110 mls @ 50 mls/hr IV Q12H ALEX Stop: 08/21/21 18:59 Last Admin: 08/19/21 07:47 Dose: 50 mls/hr Documented by: Pravastatin Sodium (Pravastatin Sod 40 Mg Tab) 40 mg PO HS ALEX Stop: 09/13/21 20:59 Last Admin: 08/18/21 22:25 Dose: 40 mg Documented by: Prednisone (Prednisone 20 Mg Tab) 40 mg PO QAM ALEX Stop: 09/18/21 08:59 Last Admin: 08/19/21 07:51 Dose: 40 mg Documented by: Sertraline HCl (Sertraline Hcl 100 Mg Tablet) 100 mg PO QPM ALEX Stop: 09/13/21 20:59 Last Admin: 08/18/21 22:25 Dose: 100 mg Documented by: Sertraline HCl (Sertraline Hcl 50 Mg Tablet) 50 mg PO QPM ALEX Stop: 09/13/21 20:59 Last Admin: 08/18/21 22:25 Dose: 50 mg Documented by: Sodium Chloride (Sodium Chlor 7% 4 Ml Neb) 4 ml NEB BIDR ALEX Stop: 09/14/21 18:59 Last Admin: 08/19/21 09:33 Dose: Not Given Documented by: Umeclidinium/Vilanterol (Umeclidinium/Vilanterol 62.5/25mcg 7 Puffs/Inhaler) 1 puffs INH DAILY ALEX Stop: 09/14/21 08:59 Last Admin: 08/19/21 07:51 Dose: 1 puffs Documented by: Voriconazole (Voriconazole 200 Mg Tablet) 400 mg PO QPM ALEX Stop: 08/21/21 20:59 Last Admin: 08/18/21 22:25 Dose: 400 mg Documented by: Voriconazole (Voriconazole 200 Mg Tablet) 200 mg PO QAM ALEX Stop: 08/22/21 08:59 Last Admin: 08/19/21 07:53 Dose: 200 mg Documented by: (1) HTN (hypertension) Hypertension type: essential hypertension Qualified Code(s): I10 - Essential (primary) hypertension (2) Hyperlipidemia Hyperlipidemia type: unspecified Qualified Code(s): E78.5 - Hyperlipidemia, unspecified (3) Depression Depression Type: major depressive disorder Major depression recurrence: unspecified whether recurrent Active/Remission status: remission status unspecified Qualified Code(s): F32.9 - Major depressive disorder, single episode, unspecified
--- NOTE | 2021-08-19 10:56 | CT Scan Report ---
CT pelvis wo con CLINICAL INDICATION: MN ^R hip pain, s/p fall. TECHNIQUE: Helical axial images of the abdomen and pelvis were obtained and displayed at 5 and 1 mm i ntervals. Automated dose lowering techniques and/or adjustment according to patient size were utilize d for this exam. This exam was performed with intravenous contrast. COMPARISON: Comparison is made to left hip and pelvis radiographs 08/18/2021 FINDINGS: Bones: There is a minimally displaced fracture of the right inferior pubic ramus. Degenerative change s including multifocal osteophyte formation are noted. A left femoral anayeli is seen. Bowel: Unremarkable. Lymph nodes Mesenteric: Unremarkable. Pelvic: Unremarkable. Bladder: Unremarkable. Reproductive organs: Unremarkable. Peritoneum: Normal Vessels: Partially visualized, there is an intra-abdominal aortic aneurysm measuring 33 mm in diamete r. Diffuse atherosclerotic changes are seen. Abdominal wall: Unremarkable. IMPRESSION: Minimally displaced fracture of the right inferior pubic ramus. ACT 112: Negative or not required by law. Electronically signed by: Richie Maradiaga M.D. 08/19/2021 10:55 AM
--- NOTE | 2021-08-19 10:58 | CT Scan Report ---
CT femur RT wo con INDICATION: MN ^R leg and hip pain, s/p fall TECHNIQUE: Multidetector row helical CT of the right knee was performed without intravenous contrast. Coronal and sagittal reformations were obtained. Automated dose lowering techniques and/or adjustmen t according to patient size were utilized for this examination. Comparison: Comparison is made to hip and pelvis radiographs 08/18/2021 FINDINGS: The osseous structures are without fracture or dislocation. No joint effusion is seen. Severe degene rative changes are seen in the knee and at the femoroacetabular joint. Partial visualization of right inferior pubic ramus fracture. IMPRESSION: No fractures of the femur. Please see CT pelvis for detailed findings of pelvic fracture. ACT 112: Negative or not required by law. Electronically signed by: Richie Maradiaga M.D. 08/19/2021 10:57 AM
[2021-08-19] MEDS: ACETAMINOPHEN 325 MG TAB PO PRN (12:38)
[2021-08-19] MEDS: SERTRALINE HCL 100 MG TABLET PO SCH (22:11)
[2021-08-19] MEDS: PRAVASTATIN SOD 40 MG TAB PO SCH (22:11)
[2021-08-19] MEDS: SERTRALINE HCL 50 MG TABLET PO SCH (22:12)
[2021-08-20] MEDS: ACETAMINOPHEN 325 MG TAB PO PRN (01:04)
[2021-08-20] MEDS: ACETYLCYSTEINE 20% INHAL SOLN 4ML ***DISPENSED BY RESP. INH SCH ×2 (07:22→19:52)
[2021-08-20] MEDS: ALBUT/IPRATROP 3MG/0.5MG NEB 3 ML VIAL NEB SCH ×4 (07:22→19:52)
[2021-08-20] MEDS: SODIUM CHLOR 7% 4 ML NEB NEB SCH ×2 (07:22→20:09)
[2021-08-20 08:24] LABS: Mean Corpuscular Hgb Conc 33.3 g/dL (32-36); Mean Platelet Volume 10.5 fL (7.4-10.4); Platelet Count 137 K/uL (130-400); RDW Standard Deviation 49.2 fL (36.4-46.3); White Blood Count 10.52 K/uL (4.8-10.8)
[2021-08-20 08:53] LABS: BUN Creatinine Ratio 39.9 (10-20); Calcium 8.6 mg/dl (8.5-10.1); Creatinine Clr Calc Pharmacy 39.4 ml/min; Est GFR (African American) 68.1 ml/min; Est GFR (Non-African American) 58.8 ml/min; Magnesium 2.1 mg/dl (1.8-2.4); Phosphorus 2.5 mg/dl (2.5-4.9); Potassium 3.9 mmol/L (3.5-5.1)
[2021-08-20] MEDS: UMECLIDINIUM/VILANTEROL 62.5/25MCG 7 PUFFS/INHALER INH SCH (10:09)
[2021-08-20] MEDS: VORICONAZOLE 200 MG TABLET PO SCH ×2 (10:10→22:27)
[2021-08-20] MEDS: guaiFENesin 600 MG TABCR PO SCH ×4 (10:10→22:27)
[2021-08-20] MEDS: HEPARIN SOD 5,000 UNIT/0.5 ML VIAL SQ SCH ×2 (10:12→22:27)
[2021-08-20] MEDS: DOXYCYCLINE HYCLATE 100 MG in DEXTROSE 5% 100 ML IV SCH ×2 (10:12→20:16)
[2021-08-20] MEDS: ASPIRIN 81 MG ECTAB PO SCH (13:28)
[2021-08-20] MEDS: predniSONE 20 MG TAB PO SCH (13:28)
[2021-08-20] MEDS ORDERED: FUROSEMIDE 10 MG in SYRINGE 0 ML IV SCH (17:00)
--- NOTE | 2021-08-20 17:52 | XRay Report ---
XR chest 1V portable HISTORY: Pneumonia. Follow-up. COMPARISON: Chest 08/07/2021. FINDINGS: Reticulonodular interstitial thickening within the mid to lower lung zones has slightly imp roved. No new focal lung consolidations. The heart remains enlarged. No pneumothorax. No pleural effu sions. No evidence for pulmonary edema. IMPRESSION: Reticulonodular interstitial thickening within the mid to lower lung zones have slightly improved. No new focal lung consolidations. ACT 112: Negative or not required by law. Electronically signed by: Leander Collier M.D. 08/20/2021 5:51 PM
--- NOTE | 2021-08-20 22:22 | Consultation Report ---
DATE OF CONSULTATION: 08/20/2021. HISTORY OF PRESENT ILLNESS: This is an 81-year-old female seen at request of Dr. Berkowitz and Dr. Kerry suazo regarding right sided pubic ramus and pelvic pain, status post fall while in the hospital for anoth er complaint. The patient was admitted 08/14/2021 for exacerbation of COPD. She was in her normal s zaldivar of medical convalescence here to the hospital and she sustained a fall out of bed. She had pain in her right hip and pelvis. She had radiographs, which were read to be essentially unremarkable; h hayley, had a CT scan due to continued pain, noted to have a fracture of the inferior pubic ramus on the right side. Orthopedics was consulted at that time. The patient had continued complaints, which tended to improve over the last several days. She has complaints of minor to moderate pain in the r ight side of the hip and anterior pubic ramus from questioning. PAST MEDICAL HISTORY: COPD exacerbation, elevated troponin, pulmonary nodules, CKD stage III, hypert ension, hyperlipidemia, depression, DVT, O2 dependent COPD, prior COVID pneumonia 11/2020, bronchiect asis, depression, dementia, AAA, asthma, peripheral vascular disease, tobacco use disorder, history o f hip fracture. PAST SURGICAL HISTORY: AAA repair 2010, laparotomy for wound VAC, ORIF of left hip. ALLERGIES: No known drug allergies. MEDICATIONS: Please note the list provided in the medical record. SOCIAL HISTORY: She is a former smoker of cigarettes a 67.5 pack year history. She is . Her of COVID in 11/2020. She is retired. PHYSICAL EXAMINATION: This is an 81-year-old female, lying supine in hospital room bed, alert and or iented x2 with some redirection required due to dementia. The patient is conversant and pleasant. F ocused examination of the pelvis and hips demonstrate a contusion on the right greater trochanter. S ome mild tenderness to palpation. She has mild to moderate tenderness to palpation of the right infe rior pubic ramus with palpation. There is no crepitation. Negative pelvic rock. Negative pelvic sh ear test. There is no significant leg length discrepancy. Passive range of motion is unaffected. B ilateral hips with flexion, extension, internal and external rotation. No focal crepitation is noted . Radiographs and CT scan reviewed demonstrating inferior pubic ramus fracture on the right with min imal displacement. IMPRESSION: 1. Right inferior pubic ramus fracture. 2. Contusion, right hip, status post fall. RECOMMENDATION: Continue conservative management and physical therapy for gait training and increasi ng walking tolerance with assist x1. May follow up in Orthopedic Clinic with Dr. Daily at [facility] upon discharge from the hospital for further radiographic surveillance. Thank you for the opportunity to consult in the care of this patient. Job ID: [id number]
[2021-08-20] MEDS: SERTRALINE HCL 50 MG TABLET PO SCH (22:27)
[2021-08-20] MEDS: SERTRALINE HCL 100 MG TABLET PO SCH (22:27)
[2021-08-20] MEDS: PRAVASTATIN SOD 40 MG TAB PO SCH (22:27)
[2021-08-21] MEDS: ALBUT/IPRATROP 3MG/0.5MG NEB 3 ML VIAL NEB SCH ×4 (07:31→19:00)
[2021-08-21] MEDS: ACETYLCYSTEINE 20% INHAL SOLN 4ML ***DISPENSED BY RESP. INH SCH ×2 (07:31→19:00)
[2021-08-21] MEDS: SODIUM CHLOR 7% 4 ML NEB NEB SCH ×2 (07:32→19:01)
[2021-08-21 07:35] LABS: Hematocrit (blood only) 38.4 % (37-47); Hemoglobin 12.9 g/dL (12.0-16.0); Mean Corpuscular Hemoglobin 30.1 pg (25-34); Mean Corpuscular Hgb Conc 33.6 g/dL (32-36); Mean Corpuscular Volume 89.5 fL (80-100); Mean Platelet Volume 10.7 fL (7.4-10.4); Platelet Count 155 K/uL (130-400); RDW Coefficient of Variation 15.2 % (11.5-14.5); RDW Standard Deviation 49.5 fL (36.4-46.3); Red Blood Count 4.29 M/uL (4.2-5.4)
[2021-08-21 07:51] LABS: BUN Creatinine Ratio 32.3 (10-20); Calcium 8.9 mg/dl (8.5-10.1); Creatinine Clr Calc Pharmacy 29.9 ml/min; Est GFR (African American) 48.7 ml/min; Est GFR (Non-African American) 42.1 ml/min; Magnesium 2.5 mg/dl (1.8-2.4); Potassium 3.6 mmol/L (3.5-5.1)
[2021-08-21 07:54] LABS: Phosphorus 4.2 mg/dl (2.5-4.9)
[2021-08-21] MEDS: DOXYCYCLINE HYCLATE 100 MG in DEXTROSE 5% 100 ML IV SCH (08:47)
[2021-08-21] MEDS: HEPARIN SOD 5,000 UNIT/0.5 ML VIAL SQ SCH ×2 (08:48→21:30)
[2021-08-21] MEDS: guaiFENesin 600 MG TABCR PO SCH ×2 (08:48→21:29)
[2021-08-21] MEDS: VORICONAZOLE 200 MG TABLET PO SCH (08:52)
[2021-08-21] MEDS: UMECLIDINIUM/VILANTEROL 62.5/25MCG 7 PUFFS/INHALER INH SCH (09:00)
[2021-08-21] MEDS: POLYETHYLENE (MIRALAX) 17 GM PACK PO SCH ×2 (09:10→21:31)
[2021-08-21] MEDS: DOCUSATE SODIUM 100 MG CAP PO SCH ×2 (09:10→21:29)
[2021-08-21] MEDS: ASPIRIN 81 MG ECTAB PO SCH (10:21)
[2021-08-21] MEDS: predniSONE 20 MG TAB PO SCH (10:22)
--- NOTE | 2021-08-21 13:01 | Hospitalist Progress Note ---
Date of Service August 20, 2021 Assessment & Plan (1) COPD exacerbation: (2) Elevated troponin: (3) Pulmonary nodule: (4) CKD (chronic kidney disease), stage III: (5) HTN (hypertension): (6) Hyperlipidemia: (7) Depression: Plan: Present on admission with worsening shortness of breath, fever and weakness Exposed to rhinovirus and RSV from grand children COVID-19 negative and procalcitonin negative RSV positive Chest x-ray on admission showed no acute process CT chest showed Multiple pulmonary nodules as detailed above. Large solid nodule with lobulated contour within paramediastinal aspect of the right upper lobe is highly concerning for malignancy. Continue supportive therapy Pulmonary medicine consulted Will change solumedrol to prednisone 40mg daily Continue oxygen supplement Continue flutter valve, guaifenesin and incentive spirometry Clinically improved significantly Per pulmonary medicine - think the best possible patient will be have a PET/CT done as an outpatient Patient's family will have enough time to decide if they want to proceed with any diagnostic procedures - would recommend giving doxycycline for at least 5 days for tree-in-bud opacities which the patient has Recommend continuing with Mucomyst as well as hypertonic nebulized saline along with flutter valve at home Right upper Lobe Mass CT chest showed multiple pulmonary nodules as detailed above. Large solid nodule with lobulated contour within paramediastinal aspect of the right upper lobe is highly concerning for malignancy. Spoke to Dr. Reynolds that suggested to push the last CT chest imaging from April 2021 to [place] PACS that he could compare it to the current CT chest Mass Significant increase in size since November 2020 Dr. Reynolds discussed finding over the phone with pt's grand daughter Unfortunately the location is not accessible to Bronch as per Dr. Reynolds Recommend outpatient PET scan Palliative care on board for goals of care COPD COPD with emphysema Patient on Flovent and Spiriva at home Pulm recommended to transition to Anoro/Stiolto or Trelegy and discontinue Flovent on discharge. 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 CT of the abdomen with IV contrast obtained to r/o any mas R hip pain/ leg pain Patient had a fall earlier while in the hospital, hit her buttocks, R hip, falling from bed. She did not have any pain yesterday (08/18) or soon after her fall. X-ray of pelvis and right hip were obtained and were negative. Family was updated. This morning (09/06 she reported no pain however after she ambulated with the nurse to bedside commode she reported pain in her right hip /leg. Obtained CT pelvis right hip, right femur - IMPRESSION: Minimally displaced fracture of the right inferior pubic ramus. Orthopedics consulted - appreciate their input Thrombocytopenia Platelet 87 No sign of active bleeding Continue monitor closely Transaminitis LFT increase with AST 90 and ALT 86, now downtrending CT abdomen obtained as above DVT Prophylaxis: Heparin subQ BID Code Status: Full code Admission and Anticipated Discharge Date Admission Date: August 14, 2021 Subjective Patient was seen and examined for follow-up of shortness of breath Laying in bed in no acute distress However she is little confused today, was talking to someone in the room who was not there Denies any chest pain, palpitation, dizziness, or fever Pulmonology and palliative care team consulted Discussed with pulmonary medicine, likely recommend PET scan as outpatient and family and patient can further decide if they want to proceed with any other procedures. Talked to patient's daughter Mary at [phone], who is patient's POA (along with Laura her sister). For now they believe they will proceed with PET scan first. Patient had a fall earlier while in the hospital, hit her buttocks, R hip, falling from bed. She did not have any pain yesterday or soon after her fall. X-ray of pelvis and right hip were obtained and were negative. Family was updated. Yesterday morning she reported no pain however after she ambulated with the nurse to bedside commode she reported pain in her right hip /leg. Obtained CT pelvis right hip, right femur Review of Systems Review of Systems: All systems reviewed & are unremarkable except as noted in Subjective Physical Exam 2 Physical Exam: General- No acute distress Head- atraumatic Eyes- PERRL, EOMI, ENT- oropharynx clear Neck- supple, no JVD Lungs- +decrease BS, +rhonchi Heart- regular rhythm; Abdomen- normal bowel sounds, soft, nontender Extremities- no calf tenderness, moves extremities, +mild to moderate tenderness to palpation of the right inferior pubic ramus with palpation. Neuro- alert, oriented x 3; PERRL, EOMI; no facial palsy; no dysarthria, moves extremities Skin- warm & dry Results & Data Results & Data ([facility]) Laboratory Results 08/21/21 08/21/21 08/21/21 Range/Units 06:51 06:51 06:42 WBC 9.40 (4.8-10.8) K/uL RBC 4.29 (4.2-5.4) M/uL Hgb 12.9 (12.0-16.0) g/dL Hct 38.4 (37-47) % MCV 89.5 (80-100) fL MCH 30.1 (25-34) pg MCHC 33.6 (32-36) g/dL RDW Std Deviation 49.5 H (36.4-46.3) fL RDW Coeff of Wayne 15.2 H (11.5-14.5) % Plt Count 155 (130-400) K/uL MPV 10.7 H (7.4-10.4) fL Sodium 139 (136-145) mmol/L Potassium 3.6 (3.5-5.1) mmol/L Chloride 104 (98-107) mmol/L Carbon Dioxide 24 (21-32) mmol/L Anion Gap 10.0 (3-11) BUN 39 H (7-18) mg/dl Creatinine 1.20 (0.6-1.2) mg/dl Est Cr Clr Drug Dosing 29.9 ml/min Est GFR ( Amer) 48.7 ml/min Est GFR (Non-Af Amer) 42.1 ml/min BUN/Creatinine Ratio 32.3 H (10-20) Glucose 93 (70-99) mg/dl Calcium 8.9 (8.5-10.1) mg/dl Phosphorus 4.2 D (2.5-4.9) mg/dl Magnesium 2.5 H (1.8-2.4) mg/dl Procalcitonin 0.11 (0-0.5) ng/ml Medications Administered Current Inpatient Medications Acetaminophen (Acetaminophen 325 Mg Tab) 650 mg PO Q4H PRN PRN Reason: Pain Stop: 09/18/21 10:06 Last Admin: 08/20/21 01:04 Dose: 650 mg Documented by: Acetylcysteine (Acetylcysteine 20% Inhal Soln 4ml Dispensed By Resp.) 5 ml INH Q12R ALEX Stop: 09/14/21 08:29 Last Admin: 08/21/21 07:31 Dose: 5 ml Documented by: Albuterol (Albut/Ipratrop 3mg/0.5mg Neb 3 Ml Vial) 3 ml NEB QIDR ALEX Stop: 09/13/21 14:59 Last Admin: 08/21/21 11:09 Dose: 3 ml Documented by: Aspirin (Aspirin 81 Mg Ectab) 81 mg PO DAILY ALEX Stop: 09/14/21 08:59 Last Admin: 08/21/21 10:21 Dose: 81 mg Documented by: Docusate Sodium (Docusate Sodium 100 Mg Cap) 100 mg PO BID ALEX Stop: 09/20/21 08:59 Last Admin: 08/21/21 09:10 Dose: 100 mg Documented by: Guaifenesin (Guaifenesin 600 Mg Tabcr) 600 mg PO Q12 ALEX Stop: 09/13/21 20:59 Last Admin: 08/21/21 08:48 Dose: 600 mg Documented by: Heparin Sodium (Porcine) (Heparin Sod 5,000 Unit/0.5 Ml Vial) 5,000 units SQ Q12 ALEX Stop: 09/13/21 20:59 Last Admin: 08/21/21 08:48 Dose: 5,000 units Documented by: Doxycycline Hyclate 100 mg/ (Dextrose) 110 mls @ 50 mls/hr IV Q12H ALEX Stop: 08/21/21 18:59 Last Infusion: 08/21/21 11:00 Dose: Infused Documented by: Polyethylene Glycol (Polyethylene (Miralax) 17 Gm Pack) 17 gm PO BID ALEX Stop: 09/20/21 08:59 Last Admin: 08/21/21 09:10 Dose: 17 gm Documented by: Pravastatin Sodium (Pravastatin Sod 40 Mg Tab) 40 mg PO HS ALEX Stop: 09/13/21 20:59 Last Admin: 08/20/21 22:27 Dose: Not Given Documented by: Prednisone (Prednisone 20 Mg Tab) 40 mg PO QAM ALEX Stop: 09/18/21 08:59 Last Admin: 08/21/21 10:22 Dose: 40 mg Documented by: Sertraline HCl (Sertraline Hcl 100 Mg Tablet) 100 mg PO QPM ALEX Stop: 09/13/21 20:59 Last Admin: 08/20/21 22:27 Dose: Not Given Documented by: Sertraline HCl (Sertraline Hcl 50 Mg Tablet) 50 mg PO QPM ALEX Stop: 09/13/21 20:59 Last Admin: 08/20/21 22:27 Dose: Not Given Documented by: Sodium Chloride (Sodium Chlor 7% 4 Ml Neb) 4 ml NEB BIDR ALEX Stop: 09/14/21 18:59 Last Admin: 08/21/21 07:32 Dose: 4 ml Documented by: Umeclidinium/Vilanterol (Umeclidinium/Vilanterol 62.5/25mcg 7 Puffs/Inhaler) 1 puffs INH DAILY ALEX Stop: 09/14/21 08:59 Last Admin: 08/20/21 10:09 Dose: 1 puffs Documented by: Voriconazole (Voriconazole 200 Mg Tablet) 400 mg PO QPM ALEX Stop: 08/21/21 20:59 Last Admin: 08/20/21 22:27 Dose: Not Given Documented by: Voriconazole (Voriconazole 200 Mg Tablet) 200 mg PO QAM ALEX Stop: 08/22/21 08:59 Last Admin: 08/21/21 08:52 Dose: 200 mg Documented by: (1) HTN (hypertension) Hypertension type: essential hypertension Qualified Code(s): I10 - Essential (primary) hypertension (2) Hyperlipidemia Hyperlipidemia type: unspecified Qualified Code(s): E78.5 - Hyperlipidemia, unspecified (3) Depression Depression Type: major depressive disorder Major depression recurrence: unspecified whether recurrent Active/Remission status: remission status unspecified Qualified Code(s): F32.9 - Major depressive disorder, single episode, unspecified
--- NOTE | 2021-08-21 13:02 | Hospitalist Progress Note ---
Date of Service August 21, 2021 Assessment & Plan (1) COPD exacerbation: (2) Elevated troponin: (3) Pulmonary nodule: (4) CKD (chronic kidney disease), stage III: (5) HTN (hypertension): (6) Hyperlipidemia: (7) Depression: Plan: Present on admission with worsening shortness of breath, fever and weakness Exposed to rhinovirus and RSV from grand children COVID-19 negative and procalcitonin negative RSV positive Chest x-ray on admission showed no acute process CT chest showed Multiple pulmonary nodules as detailed above. Large solid nodule with lobulated contour within paramediastinal aspect of the right upper lobe is highly concerning for malignancy. Continue supportive therapy Pulmonary medicine consulted Will change solumedrol to prednisone 40mg daily Continue oxygen supplement Continue flutter valve, guaifenesin and incentive spirometry Clinically improved significantly Per pulmonary medicine - think the best possible patient will be have a PET/CT done as an outpatient Patient's family will have enough time to decide if they want to proceed with any diagnostic procedures - would recommend giving doxycycline for at least 5 days for tree-in-bud opacities which the patient has Recommend continuing with Mucomyst as well as hypertonic nebulized saline along with flutter valve at home Right upper Lobe Mass CT chest showed multiple pulmonary nodules as detailed above. Large solid nodule with lobulated contour within paramediastinal aspect of the right upper lobe is highly concerning for malignancy. Spoke to Dr. Reynolds that suggested to push the last CT chest imaging from April 2021 to [place] [facility] that he could compare it to the current CT chest Mass Significant increase in size since November 2020 Dr. Reynolds discussed finding over the phone with pt's grand daughter Unfortunately the location is not accessible to [place] as per Dr. Reynolds Recommend outpatient PET scan Palliative care on board for goals of care COPD COPD with emphysema Patient on Flovent and Spiriva at home Pulm recommended to transition to Anoro/Stiolto or Trelegy and discontinue Flovent on discharge. 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 CT of the abdomen with IV contrast obtained to r/o any mas R hip pain/ leg pain Patient had a fall earlier while in the hospital, hit her buttocks, R hip, falling from bed. She did not have any pain yesterday (08/18) or soon after her fall. X-ray of pelvis and right hip were obtained and were negative. Family was updated. This morning (09/06 she reported no pain however after she ambulated with the nurse to bedside commode she reported pain in her right hip /leg. Obtained CT pelvis right hip, right femur - IMPRESSION: Minimally displaced fracture of the right inferior pubic ramus. Orthopedics consulted - appreciate their input IMPRESSION: 1. Right inferior pubic ramus fracture. 2. Contusion, right hip, status post fall. RECOMMENDATION: Continue conservative management and physical therapy for gait training and increasing walking tolerance with assist x1. May follow up in Orthopedic Clinic with Dr. Daily at [facility] upon discharge from the hospital for further radiographic surveillance. We will try to obtain hospital bed for the patient so she could be discharged home, and be cared for by her family. They would prefer not to have patient in detention at this time, they are aware that this may require much more of their efforts and help. Patient will need frequent repositioning due to pain control, not able to do with regular bed. Thrombocytopenia Platelet 87 No sign of active bleeding Continue monitor closely Transaminitis LFT increase with AST 90 and ALT 86, now downtrending CT abdomen obtained as above DVT Prophylaxis: Heparin subQ BID Code Status: Full code Admission and Anticipated Discharge Date Admission Date: August 14, 2021 Subjective Patient was seen and examined for follow-up of shortness of breath Laying in bed in no acute distress Denies any chest pain, palpitation, dizziness, or fever Pulmonology and palliative care team consulted Patient had a fall earlier while in the hospital, hit her buttocks, R hip, falling from bed, which does show fracture. Ortho consulted Discussed with Mary, that pt will need likely hospital bed, for frequent repositioning, having pain from pelvic fracture. Per Mary ([phone]), bed was not yet delivered, will discuss further with CM. Review of Systems Review of Systems: All systems reviewed & are unremarkable except as noted in Subjective Physical Exam Physical Exam: General- No acute distress Head- atraumatic Eyes- PERRL, EOMI, ENT- oropharynx clear Neck- supple, no JVD Lungs- +decrease BS, +rhonchi Heart- regular rhythm; Abdomen- normal bowel sounds, soft, nontender Extremities- no calf tenderness, moves extremities, +mild to moderate tenderness to palpation of the right inferior pubic ramus with palpation. Neuro- alert, oriented x 3; PERRL, EOMI; no facial palsy; no dysarthria, moves extremities Skin- warm & dry Results & Data Results & Data ([facility]) Vital Signs (Past 12 Hours) Vital Signs Temp Pulse Pulse Resp BP BP Pulse Ox 08/21/21 11:50 37.0 C 108 H 18 108/67 90 08/21/21 11:09 88 20 96 08/21/21 08:11 37.0 C 110 H 18 123/74 93 08/21/21 07:45 87 20 96 08/21/21 07:33 97 H 20 94 08/21/21 06:00 86 08/21/21 04:42 36.4 C L 83 17 107/61 96 Laboratory Results 08/21/21 08/21/21 08/21/21 Range/Units 06:51 06:51 06:42 WBC 9.40 (4.8-10.8) K/uL RBC 4.29 (4.2-5.4) M/uL Hgb 12.9 (12.0-16.0) g/dL Hct 38.4 (37-47) % MCV 89.5 (80-100) fL MCH 30.1 (25-34) pg MCHC 33.6 (32-36) g/dL RDW Std Deviation 49.5 H (36.4-46.3) fL RDW Coeff of [place] 15.2 H (11.5-14.5) % Plt Count 155 (130-400) K/uL MPV 10.7 H (7.4-10.4) fL Sodium 139 (136-145) mmol/L Potassium 3.6 (3.5-5.1) mmol/L Chloride 104 (98-107) mmol/L Carbon Dioxide 24 (21-32) mmol/L Anion Gap 10.0 (3-11) BUN 39 H (7-18) mg/dl Creatinine 1.20 (0.6-1.2) mg/dl Est Cr Clr Drug Dosing 29.9 ml/min Est GFR ( Amer) 48.7 ml/min Est GFR (Non-Af Amer) 42.1 ml/min BUN/Creatinine Ratio 32.3 H (10-20) Glucose 93 (70-99) mg/dl Calcium 8.9 (8.5-10.1) mg/dl Phosphorus 4.2 D (2.5-4.9) mg/dl Magnesium 2.5 H (1.8-2.4) mg/dl Procalcitonin 0.11 (0-0.5) ng/ml Medications Administered Current Inpatient Medications Acetaminophen (Acetaminophen 325 Mg Tab) 650 mg PO Q4H PRN PRN Reason: Pain Stop: 09/18/21 10:06 Last Admin: 08/20/21 01:04 Dose: 650 mg Documented by: Acetylcysteine (Acetylcysteine 20% Inhal Soln 4ml Dispensed By Resp.) 5 ml INH Q12R ALEX Stop: 09/14/21 08:29 Last Admin: 08/21/21 07:31 Dose: 5 ml Documented by: Albuterol (Albut/Ipratrop 3mg/0.5mg Neb 3 Ml Vial) 3 ml NEB QIDR ALEX Stop: 09/13/21 14:59 Last Admin: 08/21/21 11:09 Dose: 3 ml Documented by: Aspirin (Aspirin 81 Mg Ectab) 81 mg PO DAILY ALEX Stop: 09/14/21 08:59 Last Admin: 08/21/21 10:21 Dose: 81 mg Documented by: Docusate Sodium (Docusate Sodium 100 Mg Cap) 100 mg PO BID ALEX Stop: 09/20/21 08:59 Last Admin: 08/21/21 09:10 Dose: 100 mg Documented by: Guaifenesin (Guaifenesin 600 Mg Tabcr) 600 mg PO Q12 ALEX Stop: 09/13/21 20:59 Last Admin: 08/21/21 08:48 Dose: 600 mg Documented by: Heparin Sodium (Porcine) (Heparin Sod 5,000 Unit/0.5 Ml Vial) 5,000 units SQ Q12 ALEX Stop: 09/13/21 20:59 Last Admin: 08/21/21 08:48 Dose: 5,000 units Documented by: Doxycycline Hyclate 100 mg/ (Dextrose) 110 mls @ 50 mls/hr IV Q12H ALEX Stop: 08/21/21 18:59 Last Infusion: 08/21/21 11:00 Dose: Infused Documented by: Polyethylene Glycol (Polyethylene (Miralax) 17 Gm Pack) 17 gm PO BID ALEX Stop: 09/20/21 08:59 Last Admin: 08/21/21 09:10 Dose: 17 gm Documented by: Pravastatin Sodium (Pravastatin Sod 40 Mg Tab) 40 mg PO HS ALEX Stop: 09/13/21 20:59 Last Admin: 08/20/21 22:27 Dose: Not Given Documented by: Prednisone (Prednisone 20 Mg Tab) 40 mg PO QAM ALEX Stop: 09/18/21 08:59 Last Admin: 08/21/21 10:22 Dose: 40 mg Documented by: Sertraline HCl (Sertraline Hcl 100 Mg Tablet) 100 mg PO QPM ALEX Stop: 09/13/21 20:59 Last Admin: 08/20/21 22:27 Dose: Not Given Documented by: Sertraline HCl (Sertraline Hcl 50 Mg Tablet) 50 mg PO QPM ALEX Stop: 09/13/21 20:59 Last Admin: 08/20/21 22:27 Dose: Not Given Documented by: Sodium Chloride (Sodium Chlor 7% 4 Ml Neb) 4 ml NEB BIDR ALEX Stop: 09/14/21 18:59 Last Admin: 08/21/21 07:32 Dose: 4 ml Documented by: Umeclidinium/Vilanterol (Umeclidinium/Vilanterol 62.5/25mcg 7 Puffs/Inhaler) 1 puffs INH DAILY ALEX Stop: 09/14/21 08:59 Last Admin: 08/20/21 10:09 Dose: 1 puffs Documented by: Voriconazole (Voriconazole 200 Mg Tablet) 400 mg PO QPM ALEX Stop: 08/21/21 20:59 Last Admin: 08/20/21 22:27 Dose: Not Given Documented by: Voriconazole (Voriconazole 200 Mg Tablet) 200 mg PO QAM ALEX Stop: 08/22/21 08:59 Last Admin: 08/21/21 08:52 Dose: 200 mg Documented by: (1) Depression Active/Remission status: remission status unspecified Depression Type: major depressive disorder Major depression recurrence: unspecified whether recurrent Qualified Code(s): F32.9 - Major depressive disorder, single episode, unspecified (2) Hyperlipidemia Hyperlipidemia type: unspecified Qualified Code(s): E78.5 - Hyperlipidemia, unspecified (3) HTN (hypertension) Hypertension type: essential hypertension Qualified Code(s): I10 - Essential (primary) hypertension
[2021-08-21] MEDS: ACETAMINOPHEN 325 MG TAB PO PRN (14:14)
--- NOTE | 2021-08-21 16:07 | Palliative Care Progress Note ---
Date of Service August 21, 2021 Assessment & Plan (1) Palliative care encounter: Plan: Patient with a hip fracture that has been determined to be managed conservatively. Palliative has been having a difficult time reaching family, aside from Sol, although she does not hold decision making power. With her fracture, she does appear to be comfortable and quite pleasant when I saw her today. I spoke to Sol who will follow up with her Aunt regarding decision radha ing conversation. PET scan recommended as outpatient and family and patient can further decide if they want to proceed with any other procedures based on results. Important to discuss code status. For now, remaining a full code. Palliative will follow. Admission and Anticipated Discharge Date Admission Date: August 14, 2021 Subjective Patient sitting upright in her bed in no apparent distress. She had just finished eating some lunch when I saw her. She had a fall earlier this week on her right hip See A/P for further details Review of Systems Review of Systems: [place] Symptom Assessment Scale Pain 1/3 Anxiety 0/3 Dyspnea 0/3 Fatigue 1/3 Palliative Performance Score 40% Physical Exam Constitutional: + frail appearing, cooperative and comfortable ENMT: Mouth: + dry oral mucous membranes Respiratory: normal respiratory effort and + cough; no labored breathing Auscultation: + diminished lung sounds Cardiovascular: Rate/Rhythm: regular rate and regular rhythm Heart Sounds: normal S1 and normal S2 Extremities: normal capillary refill and + edema Gastrointestinal (Abdomen): Inspection/Auscultation: abdomen normal to inspection Skin: + ecchymosis and + pallor Psychiatric: Orientation: alert, oriented to person, oriented to place and cooperative Insight: + limited insight Judgement: + limited judgement Results & Data ([facility]) Vital Signs (Past 12 Hours) Vital Signs Temp Pulse Pulse Pulse Pulse Pulse Resp 08/21/21 15:31 116 H 110 H 111 H 08/21/21 11:50 37.0 C 108 H 18 08/21/21 11:09 88 20 08/21/21 08:11 37.0 C 110 H 18 08/21/21 07:45 87 20 08/21/21 07:33 97 H 20 08/21/21 06:00 86 08/21/21 04:42 36.4 C L 83 17 Resp Resp Resp BP BP Pulse Ox Pulse Ox 08/21/21 15:31 20 18 19 89 L 08/21/21 11:50 108/67 90 08/21/21 11:09 96 08/21/21 08:11 123/74 93 08/21/21 07:45 96 08/21/21 07:33 94 08/21/21 06:00 08/21/21 04:42 107/61 96 Pulse Ox Pulse Ox 08/21/21 15:31 91 94 08/21/21 11:50 08/21/21 11:09 08/21/21 08:11 08/21/21 07:45 08/21/21 07:33 08/21/21 06:00 08/21/21 04:42 PG Care Time/CCT Total # of Minutes Spent Total Time Spent with Patient: Total time spent is greater than 50% in coordination of care (as documented) at patient's floor/unit and/or counseling patient: 35 minutes with > 50% of that time spent assessing the patient and sym ptom management and collaborating with IDT Coding Level of Care Code 53399 Subseq Hosp Care Lvl 3 Diagnoses Palliative care encounter Z51.5 Time Spent (min) 35
[2021-08-21] MEDS: ALBUMIN 25% 12.5 GM/50 ML VIAL IV SCH ×2 (17:59→18:45)
[2021-08-21] MEDS ORDERED: Nursing to Pharmacy Communication SCH (18:00)
[2021-08-21] MEDS: ADVANCED PROBIOTIC 1250 MG CAPSULE PO SCH (18:01)
[2021-08-21] MEDS: SERTRALINE HCL 100 MG TABLET PO SCH (21:30)
[2021-08-21] MEDS: PRAVASTATIN SOD 40 MG TAB PO SCH (21:30)
[2021-08-21] MEDS: SERTRALINE HCL 50 MG TABLET PO SCH (21:32)
[2021-08-22 07:31] LABS: BUN Creatinine Ratio 52.4 (10-20); Calcium 9.1 mg/dl (8.5-10.1); Creatinine Clr Calc Pharmacy 43.2 ml/min; Est GFR (African American) 76.1 ml/min; Est GFR (Non-African American) 65.7 ml/min; Potassium 3.9 mmol/L (3.5-5.1)
[2021-08-22] MEDS: SODIUM CHLOR 7% 4 ML NEB NEB SCH ×2 (07:44→19:58)
[2021-08-22] MEDS: ACETYLCYSTEINE 20% INHAL SOLN 4ML ***DISPENSED BY RESP. INH SCH ×2 (07:44→20:11)
[2021-08-22] MEDS: ALBUT/IPRATROP 3MG/0.5MG NEB 3 ML VIAL NEB SCH ×4 (07:44→20:11)
[2021-08-22 08:02] LABS: Hematocrit (blood only) 34.9 % (37-47); Hemoglobin 11.5 g/dL (12.0-16.0); Mean Corpuscular Hemoglobin 29.4 pg (25-34); Mean Corpuscular Volume 89.3 fL (80-100); Mean Platelet Volume 10.6 fL (7.4-10.4); Platelet Count 156 K/uL (130-400); RDW Coefficient of Variation 15.3 % (11.5-14.5); RDW Standard Deviation 49.5 fL (36.4-46.3); Red Blood Count 3.91 M/uL (4.2-5.4); White Blood Count 9.88 K/uL (4.8-10.8)
[2021-08-22] MEDS: POLYETHYLENE (MIRALAX) 17 GM PACK PO SCH ×2 (08:20→21:58)
[2021-08-22] MEDS: DOCUSATE SODIUM 100 MG CAP PO SCH ×2 (08:20→21:58)
[2021-08-22] MEDS: ASPIRIN 81 MG ECTAB PO SCH (08:21)
[2021-08-22] MEDS: guaiFENesin 600 MG TABCR PO SCH ×2 (08:21→21:59)
[2021-08-22] MEDS: predniSONE 20 MG TAB PO SCH (08:21)
[2021-08-22] MEDS: ADVANCED PROBIOTIC 1250 MG CAPSULE PO SCH (08:22)
[2021-08-22] MEDS: UMECLIDINIUM/VILANTEROL 62.5/25MCG 7 PUFFS/INHALER INH SCH (08:22)
[2021-08-22] MEDS: HEPARIN SOD 5,000 UNIT/0.5 ML VIAL SQ SCH ×2 (08:22→21:55)
--- NOTE | 2021-08-22 10:37 | Palliative Care Progress Note ---
Date of Service August 22, 2021 Assessment & Plan (1) Palliative care encounter: Plan: Patient with a hip fracture that has been determined to be managed conservatively.PET scan recommended as outpatient and family and patient can further decide if they want to proceed with any other procedures based on results. For now, plan for patient to return home with home health after equipment delivery. Unless other concerns arise, palliative medicine will sign off. Admission and Anticipated Discharge Date Admission Date: August 14, 2021 Subjective Pt sitting in her bed in no apparent distress. Awaiting discharge after equipment delivered See A/P for further information. Review of Systems Review of Systems: [place] Symptom Assessment Scale Pain 1/3 Anxiety 0/3 Dyspnea 0/3 Fatigue 1/3 Palliative Performance Score 40% Physical Exam Constitutional: + frail appearing, cooperative and comfortable ENMT: Mouth: + dry oral mucous membranes Respiratory: normal respiratory effort and + cough; no labored breathing Auscultation: + diminished lung sounds Cardiovascular: Rate/Rhythm: regular rate and regular rhythm Heart Sounds: normal S1 and normal S2 Extremities: normal capillary refill and + edema Gastrointestinal (Abdomen): Inspection/Auscultation: abdomen normal to inspection Skin: + ecchymosis and + pallor Psychiatric: Orientation: alert, oriented to person, oriented to place and cooperative Insight: + limited insight Judgement: + limited judgement Results & Data ([facility]) Vital Signs (Past 12 Hours) Vital Signs Temp Pulse Pulse Resp BP Pulse Ox 08/22/21 08:00 36.9 C 77 20 118/70 96 08/22/21 07:45 84 16 96 08/22/21 05:20 85 08/22/21 04:00 36.6 C 79 18 135/64 97 08/21/21 23:10 36.6 C 83 20 131/69 98 PG Care Time/CCT Total # of Minutes Spent Total Time Spent with Patient: Total time spent is greater than 50% in coordination of care (as documented) at patient's floor/unit and/or counseling patient: 25 minutes with > 50% of that time spent assessing the patient, discus Coding Level of Care Code 96590 Subseq Hosp Care Lvl 2 Diagnoses Palliative care encounter Z51.5 Time Spent (min) 25
--- NOTE | 2021-08-22 11:06 | Hospitalist Progress Note ---
Date of Service August 22, 2021 Assessment & Plan (1) COPD exacerbation: (2) Elevated troponin: (3) Pulmonary nodule: (4) CKD (chronic kidney disease), stage III: (5) HTN (hypertension): (6) Hyperlipidemia: (7) Depression: Plan: Present on admission with worsening shortness of breath, fever and weakness Exposed to rhinovirus and RSV from grand children COVID-19 negative and procalcitonin negative RSV positive Chest x-ray on admission showed no acute process CT chest showed Multiple pulmonary nodules as detailed above. Large solid nodule with lobulated contour within paramediastinal aspect of the right upper lobe is highly concerning for malignancy. Continue supportive therapy Pulmonary medicine consulted Changed solumedrol to prednisone 40mg daily Continue oxygen supplement Continue flutter valve, guaifenesin and incentive spirometry Clinically improved significantly initially Per pulmonary medicine - think the best possible patient will be have a PET/CT done as an outpatient Patient's family will have enough time to decide if they want to proceed with any diagnostic procedures - would recommend giving doxycycline for at least 5 days for tree-in-bud opacities which the patient has Recommend continuing with Mucomyst as well as hypertonic nebulized saline along with flutter valve at home Patient started to have more productive cough, previously minimal cough and no sputum production Repeat chest x-ray yesterday (08/21) unremarkable Repeat chest x-ray today, procalcitonin, discussed with nursing staff to obtain sputum culture Finished doxycycline course, start Augmentin (08/22) Repeat chest x-ray (08/22) concerning for possible pneumonia Continue above management - Mucomyst, hypertonic saline, flutter valve Patient's daughter -Mary ,updated over the phone Right upper Lobe Mass CT chest showed multiple pulmonary nodules as detailed above. Large solid nodule with lobulated contour within paramediastinal aspect of the right upper lobe is highly concerning for malignancy. Spoke to Dr. Reynolds that suggested to push the last CT chest imaging from April 2021 to [place] PACS that he could compare it to the current CT chest Mass Significant increase in size since November 2020 Dr. Reynolds discussed finding over the phone with pt's grand daughter Unfortunately the location is not accessible to Bronch as per Dr. Reynolds Recommend outpatient PET scan Palliative care consulted for goals of care COPD COPD with emphysema Patient on Flovent and Spiriva at home Pulm recommended to transition to Anoro/Stiolto or Trelegy and discontinue Flovent on discharge. 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 CT of the abdomen with IV contrast obtained to r/o any mas R hip pain/ leg pain Patient had a fall earlier while in the hospital, hit her buttocks, R hip, falling from bed. She did not have any pain yesterday (08/18) or soon after her fall. X-ray of pelvis and right hip were obtained and were negative. Family was updated. This morning (09/06 she reported no pain however after she ambulated with the nurse to bedside commode she reported pain in her right hip /leg. Obtained CT pelvis right hip, right femur - IMPRESSION: Minimally displaced fracture of the right inferior pubic ramus. Orthopedics consulted - appreciate their input IMPRESSION: 1. Right inferior pubic ramus fracture. 2. Contusion, right hip, status post fall. RECOMMENDATION: Continue conservative management and physical therapy for gait training and increasing walking tolerance with assist x1. May follow up in Orthopedic Clinic with Dr. Daily at [facility] upon discharge from the hospital for further radiographic surveillance. We will try to obtain hospital bed for the patient so she could be discharged home, and be cared for by her family. They would prefer not to have patient in snf at this time, they are aware that this may require much more of their efforts and help. Patient will need frequent repositioning due to pain control, not able to do with regular bed. Thrombocytopenia Platelet 87 No sign of active bleeding Continue monitor closely Transaminitis LFT increase with AST 90 and ALT 86, now downtrending CT abdomen obtained as above DVT Prophylaxis: Heparin subQ BID Code Status: Full code Admission and Anticipated Discharge Date Admission Date: August 14, 2021 Subjective Patient was seen and examined for follow-up of shortness of breath Sitting up in bed in no acute distress, currently on NC She has now more cough, and sputum production Discussed with nursing staff to obtain sputum culture Repeat chest x-ray, obtain procalcitonin Denies any chest pain, palpitation, dizziness, or fever Pulmonology and palliative care team consulted Patient had a fall earlier while in the hospital, hit her buttocks, R hip, falling from bed, which does show fracture. Ortho consulted Discussed with Mary, that pt will need likely hospital bed, for frequent repositioning, having pain from pelvic fracture. Per Mary ([phone]), bed was not yet delivered, will discuss further with CM. Review of Systems Review of Systems: All systems reviewed & are unremarkable except as noted in Subjective Physical Exam Physical Exam: General- No acute distress Head- atraumatic Eyes- PERRL, EOMI, ENT- oropharynx clear Neck- supple, no JVD Lungs- +decrease BS, +rhonchi (seems worsened), + productive cough Heart- regular rhythm; Abdomen- normal bowel sounds, soft, nontender Extremities- no calf tenderness, moves extremities, +mild to moderate tenderness to palpation of the right inferior pubic ramus with palpation. Neuro- alert, oriented x 3; PERRL, EOMI; no facial palsy; no dysarthria, moves extremities Skin- warm & dry Results & Data Results & Data ([facility]) Vital Signs (Past 12 Hours) Vital Signs Temp Pulse Pulse Resp BP Pulse Ox 08/22/21 10:50 89 18 92 08/22/21 08:00 36.9 C 77 20 118/70 96 08/22/21 07:45 84 16 96 08/22/21 05:20 85 08/22/21 04:00 36.6 C 79 18 135/64 97 08/21/21 23:10 36.6 C 83 20 131/69 98 Laboratory Results 08/22/21 08/22/21 08/22/21 Range/Units 12:04 07:44 05:48 WBC 9.88 RBC 3.91 L Hgb 11.5 L Hct 34.9 L MCV 89.3 MCH 29.4 MCHC 33.0 RDW Std Deviation 49.5 H RDW Coeff of Wayne 15.3 H Plt Count 156 MPV 10.6 H Absolute Nucleated RBC Nucleated RBC % (auto) Platelet Estimate Sodium 140 (136-145) mmol/L Potassium 3.9 (3.5-5.1) mmol/L Chloride 107 (98-107) mmol/L Carbon Dioxide 27 (21-32) mmol/L Anion Gap 6.0 (3-11) BUN 43 H (7-18) mg/dl Creatinine 0.83 D (0.6-1.2) mg/dl Est Cr Clr Drug Dosing 43.2 ml/min Est GFR ( Amer) 76.1 ml/min Est GFR (Non-Af Amer) 65.7 ml/min BUN/Creatinine Ratio 52.4 H (10-20) Glucose 96 (70-99) mg/dl POC Glucose 183 H (70-99) mg/dl Calcium 9.1 (8.5-10.1) mg/dl 08/22/21 Range/Units 05:48 WBC Cancelled RBC Cancelled Hgb Cancelled Hct Cancelled MCV Cancelled MCH Cancelled MCHC Cancelled RDW Std Deviation Cancelled RDW Coeff of Wayne Cancelled Plt Count Cancelled MPV Cancelled Absolute Nucleated RBC Cancelled Nucleated RBC % (auto) Cancelled Platelet Estimate Cancelled Sodium (136-145) mmol/L Potassium (3.5-5.1) mmol/L Chloride (98-107) mmol/L Carbon Dioxide (21-32) mmol/L Anion Gap (3-11) BUN (7-18) mg/dl Creatinine (0.6-1.2) mg/dl Est Cr Clr Drug Dosing ml/min Est GFR ( Amer) ml/min Est GFR (Non-Af Amer) ml/min BUN/Creatinine Ratio (10-20) Glucose (70-99) mg/dl POC Glucose (70-99) mg/dl Calcium (8.5-10.1) mg/dl Medications Administered Current Inpatient Medications Acetaminophen (Acetaminophen 325 Mg Tab) 650 mg PO Q4H PRN PRN Reason: Pain Stop: 09/18/21 10:06 Last Admin: 08/21/21 14:14 Dose: 650 mg Documented by: Acetylcysteine (Acetylcysteine 20% Inhal Soln 4ml Dispensed By Resp.) 5 ml INH Q12R [facility] Stop: 09/14/21 08:29 Last Admin: 08/22/21 07:44 Dose: 5 ml Documented by: Albuterol (Albut/Ipratrop 3mg/0.5mg Neb 3 Ml Vial) 3 ml NEB QIDR [facility] Stop: 09/13/21 14:59 Last Admin: 08/22/21 15:34 Dose: 3 ml Documented by: Amoxicillin/Clavulanate Potassium (Amoxicillin/Clavulanate 875 Mg Tab) 1 tab PO BIDM ALEX Stop: 08/29/21 16:59 Aspirin (Aspirin 81 Mg Ectab) 81 mg PO DAILY ALEX Stop: 09/14/21 08:59 Last Admin: 08/22/21 08:21 Dose: 81 mg Documented by: Docusate Sodium (Docusate Sodium 100 Mg Cap) 100 mg PO BID ALEX Stop: 09/20/21 08:59 Last Admin: 08/22/21 08:20 Dose: 100 mg Documented by: Guaifenesin (Guaifenesin 600 Mg Tabcr) 600 mg PO Q12 ALEX Stop: 09/13/21 20:59 Last Admin: 08/22/21 08:21 Dose: 600 mg Documented by: Heparin Sodium (Porcine) (Heparin Sod 5,000 Unit/0.5 Ml Vial) 5,000 units SQ Q12 ALEX Stop: 09/13/21 20:59 Last Admin: 08/22/21 08:22 Dose: 5,000 units Documented by: Lactobacillus Acidoph/Casei/Rhamnos (Advanced Probiotic 1250 Mg Capsule) 2 cap PO DAILY ALEX Stop: 09/20/21 15:44 Last Admin: 08/22/21 08:22 Dose: 2 cap Documented by: Polyethylene Glycol (Polyethylene (Miralax) 17 Gm Pack) 17 gm PO BID ALEX Stop: 09/20/21 08:59 Last Admin: 08/22/21 08:20 Dose: 17 gm Documented by: Pravastatin Sodium (Pravastatin Sod 40 Mg Tab) 40 mg PO HS ALEX Stop: 09/13/21 20:59 Last Admin: 08/21/21 21:30 Dose: 40 mg Documented by: Prednisone (Prednisone 20 Mg Tab) 40 mg PO QAM ALEX Stop: 09/18/21 08:59 Last Admin: 08/22/21 08:21 Dose: 40 mg Documented by: Sertraline HCl (Sertraline Hcl 100 Mg Tablet) 100 mg PO QPM ALEX Stop: 09/13/21 20:59 Last Admin: 08/21/21 21:30 Dose: 100 mg Documented by: Sertraline HCl (Sertraline Hcl 50 Mg Tablet) 50 mg PO QPM ALEX Stop: 09/13/21 20:59 Last Admin: 08/21/21 21:32 Dose: 50 mg Documented by: Sodium Chloride (Sodium Chlor 7% 4 Ml Neb) 4 ml NEB BIDR ALEX Stop: 09/14/21 18:59 Last Admin: 10/05/21 07:44 Dose: 4 ml Documented by: Umeclidinium/Vilanterol (Umeclidinium/Vilanterol 62.5/25mcg 7 Puffs/Inhaler) 1 puffs INH DAILY ALEX Stop: 09/14/21 08:59 Last Admin: 08/22/21 08:22 Dose: 1 puffs Documented by: (1) Depression Active/Remission status: remission status unspecified Depression Type: major depressive disorder Major depression recurrence: unspecified whether recurrent Qualified Code(s): F32.9 - Major depressive disorder, single episode, unspecified (2) Hyperlipidemia Hyperlipidemia type: unspecified Qualified Code(s): E78.5 - Hyperlipidemia, unspecified (3) HTN (hypertension) Hypertension type: essential hypertension Qualified Code(s): I10 - Essential (primary) hypertension
[2021-08-22] MEDS ORDERED: bisacodyL 10 MG SUPP PR STA (12:42)
--- NOTE | 2021-08-22 14:27 | XRay Report ---
XR chest 1V portable CLINICAL HISTORY: follow up COMPARISON STUDY: Chest CT August 15, 2021. Chest radiograph August 20, 2021 FINDINGS: No pneumothorax or pleural effusion is noted. There is no evidence for pulmonary edema. Car diomediastinal silhouette is stable. Incidental note is made of multiple healed right rib fractures. Mild left basilar opacity is similar to prior exam. Right lower lung opacity has slightly increased. A lobulated right upper lobe nodule is better depicted on prior chest CT of August 15, 2021. IMPRESSION: 1. Mild right lower lung opacity which has increased since prior exam. This favors an infectious proc ess. 2. Redemonstration of an indeterminate right upper lobe pulmonary nodule which is better depicted on prior chest CT. A follow-up chest CT in one month is recommended for evaluation. ACT 112: Negative or not required by law. Electronically signed by: Booker Hamm M.D. 08/22/2021 2:26 PM
[2021-08-22] MEDS: AMOXICILLIN/CLAVULANATE 875 MG TAB PO SCH (17:11)
[2021-08-22] MEDS: SERTRALINE HCL 100 MG TABLET PO SCH (21:58)
[2021-08-22] MEDS: PRAVASTATIN SOD 40 MG TAB PO SCH (21:58)
[2021-08-22] MEDS: SERTRALINE HCL 50 MG TABLET PO SCH (21:58)
[2021-08-23] MEDS: ACETYLCYSTEINE 20% INHAL SOLN 4ML ***DISPENSED BY RESP. INH SCH ×2 (07:01→20:16)
[2021-08-23] MEDS: SODIUM CHLOR 7% 4 ML NEB NEB SCH ×2 (07:01→20:16)
[2021-08-23] MEDS: ALBUT/IPRATROP 3MG/0.5MG NEB 3 ML VIAL NEB SCH ×4 (07:01→20:16)
[2021-08-23] MEDS: DOCUSATE SODIUM 100 MG CAP PO SCH ×2 (07:48→21:38)
[2021-08-23] MEDS: predniSONE 20 MG TAB PO SCH (07:48)
[2021-08-23] MEDS: ASPIRIN 81 MG ECTAB PO SCH (07:48)
[2021-08-23] MEDS: ADVANCED PROBIOTIC 1250 MG CAPSULE PO SCH (07:49)
[2021-08-23] MEDS: guaiFENesin 600 MG TABCR PO SCH ×2 (07:50→21:38)
[2021-08-23] MEDS: AMOXICILLIN/CLAVULANATE 875 MG TAB PO SCH ×2 (07:51→16:24)
[2021-08-23] MEDS: HEPARIN SOD 5,000 UNIT/0.5 ML VIAL SQ SCH ×2 (07:51→21:39)
[2021-08-23] MEDS: POLYETHYLENE (MIRALAX) 17 GM PACK PO SCH ×2 (07:52→21:40)
[2021-08-23] MEDS: UMECLIDINIUM/VILANTEROL 62.5/25MCG 7 PUFFS/INHALER INH SCH (07:53)
[2021-08-23 08:26] LABS: Hematocrit (blood only) 35.5 % (37-47); Hemoglobin 11.7 g/dL (12.0-16.0); Mean Corpuscular Hemoglobin 29.5 pg (25-34); Mean Corpuscular Volume 89.4 fL (80-100); Mean Platelet Volume 10.3 fL (7.4-10.4); Platelet Count 158 K/uL (130-400); RDW Coefficient of Variation 15.3 % (11.5-14.5); RDW Standard Deviation 50.3 fL (36.4-46.3); Red Blood Count 3.97 M/uL (4.2-5.4); White Blood Count 11.55 K/uL (4.8-10.8)
[2021-08-23 08:43] LABS: Creatinine Clr Calc Pharmacy 44.3 ml/min; Est GFR (African American) 78.4 ml/min; Est GFR (Non-African American) 67.6 ml/min; Magnesium 2.4 mg/dl (1.8-2.4)
--- NOTE | 2021-08-23 18:02 | Hospitalist Progress Note ---
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 #. COPD exacerbation w/ emphysema: Pt on flovent and spiriva at home #. Pneumonia #. Pulmonary nodule Admitting complain of worsening shortness of breath, fever and weakness Exposed to rhinovirus and RSV from grand children COVID-19 negative and procalcitonin negative RSV positive Admitting Chest x-ray - no acute process Admitting CT chest: Multiple pulmonary nodules. Large solid nodule (2.4x1.8 cm) with lobulated contour within paramediastinal aspect of the right upper lobe is highly concerning for malignancy. Further evaluation by oncology and possible PET/CT is suggested. When compared to April 2021 CT chest, significant increase in size of the mass. Findings discussed with patient's granddaughter by Dr. Reynolds. Continue oxygen supplement/prednisone/supportive Mx. Continue flutter valve, guaifenesin and incentive spirometry Pulm Consulted: Recommends Anoro/Stiolto or Trelegy. DC flovent on discharge. Recommends continuing with Mucomyst as well as hypertonic nebulized saline along with flutter valve at home. For lung nodule recommends O.P. PET/CT. Patient's family will have enough time to decide if they want to proceed with any diagnostic procedures. Patient completed 5 days of doxycycline for tree-in-bud opacities but later developed pneumonia, currently on Augmentin. 08/23 sputum culture: Pending. Follow-up CXR in 4 to 6 weeks to document resolution of pneumonia. Palliative care on board for goals of care. #. 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 R hip pain/ leg pain Patient had a fall earlier while in the hospital, hit her buttocks, R hip, falling from bed. X-ray of pelvis and right hip were obtained and were negative. Family was updated. Next day, she reported pain in the right hip/leg when she ambulated with the nurse to bedside commode Obtained CT pelvis right hip, right femur: Minimally displaced fracture of the right inferior pubic ramus. Orthopedics consulted: Recommended conservative management and physical therapy for gait training and increasing walking tolerance with assist x1. Follow-up w [facility] orthopedic clinic with Dr. Daily at [facility] upon discharge for further radiographic surveillance. #. Thrombocytopenia Platelet 87 at presentation No sign of active bleeding Resolved #. Transaminitis LFT increase with AST 90 and ALT 86, now downtrending CT abdomen obtained revealed mild splenomegaly. No adenopathy or evidence of metastatic disease within the abdomen or pelvis. We will try to obtain hospital bed for the patient so she could be discharged home, and be cared for by her family. They #. DVT Prophylaxis: Heparin subQ BID Code Status: Full code Disposition: PT/OT recommending SNF placement versus 10/06 care at home with home health services. Pt's family would prefer not to have patient in [facility] at this time, they are aware that this may require much more of their efforts and help. Patient will need frequent repositioning due to pain control, not able to do with regular bed. Anticipate discharge to home with hospital bed in the next 1 to 2 days. Admission and Anticipated Discharge Date Admission Date: August 14, 2021 Subjective Patient was lying in bed, on 2l, NAD, alert to self only, denied any pain/headache/other review of symptoms. ROS limited d/t patient's condition. Physical Exam Physical Exam: GENERAL: Alert and oriented x to self. NAD, on 2L. HEENT: No pallor, no icterus. Pupils equal, round and reactive to light. Oral mucosa moist. NECK: No JVD, no neck masses. HEART: S1 and S2 heard. Regular rate and rhythm. No murmur, no gallop. RESPIRATORY SYSTEM: Normal AP diameter. No accessory muscle use. No wheezing. Coarse crackles diffuse and bilateral. ABDOMEN: Soft, bowel sounds present, nontender, no distention. CENTRAL NERVOUS SYSTEM: No facial droop. Speech is clear. Obeys simple commands. Moves extremities. EXTREMITIES: No edema, no erythema seen. Urinary catheter in situ with yellow urine collection. Results & Data Results & Data ([facility]) Vital Signs (Past 12 Hours) Vital Signs Temp Pulse Resp BP Pulse Ox 08/23/21 15:12 82 18 92 08/23/21 15:00 36.8 C 93 H 18 145/84 H 91 08/23/21 11:12 91 H 16 90 08/23/21 11:00 37.1 C 102 H 18 121/76 90 08/23/21 07:02 86 18 91 08/23/21 07:00 36.8 C 78 18 114/72 100
[2021-08-23] MEDS: SERTRALINE HCL 100 MG TABLET PO SCH (21:40)
[2021-08-23] MEDS: SERTRALINE HCL 50 MG TABLET PO SCH (21:40)
[2021-08-23] MEDS: PRAVASTATIN SOD 40 MG TAB PO SCH (21:40)
[2021-08-24] MEDS: ACETAMINOPHEN 325 MG TAB PO PRN ×2 (01:10→03:30)
[2021-08-24] MEDS: ACETYLCYSTEINE 20% INHAL SOLN 4ML ***DISPENSED BY RESP. INH SCH (07:28)
[2021-08-24] MEDS: ALBUT/IPRATROP 3MG/0.5MG NEB 3 ML VIAL NEB SCH ×3 (07:28→15:20)
[2021-08-24] MEDS: SODIUM CHLOR 7% 4 ML NEB NEB SCH (07:31)
[2021-08-24 07:40] LABS: Hematocrit (blood only) 36.2 % (37-47); Hemoglobin 11.7 g/dL (12.0-16.0); Mean Corpuscular Hemoglobin 29.6 pg (25-34); Mean Corpuscular Hgb Conc 32.3 g/dL (32-36); Mean Corpuscular Volume 91.6 fL (80-100); Mean Platelet Volume 10.7 fL (7.4-10.4); Platelet Count 148 K/uL (130-400); RDW Coefficient of Variation 15.3 % (11.5-14.5); RDW Standard Deviation 51.7 fL (36.4-46.3); Red Blood Count 3.95 M/uL (4.2-5.4); White Blood Count 12.45 K/uL (4.8-10.8)
[2021-08-24] MEDS: POLYETHYLENE (MIRALAX) 17 GM PACK PO SCH (08:37)
[2021-08-24] MEDS: UMECLIDINIUM/VILANTEROL 62.5/25MCG 7 PUFFS/INHALER INH SCH (08:37)
[2021-08-24] MEDS: AMOXICILLIN/CLAVULANATE 875 MG TAB PO SCH ×2 (08:38→16:23)
[2021-08-24] MEDS: HEPARIN SOD 5,000 UNIT/0.5 ML VIAL SQ SCH (08:38)
[2021-08-24] MEDS: DOCUSATE SODIUM 100 MG CAP PO SCH (08:38)
[2021-08-24] MEDS: ASPIRIN 81 MG ECTAB PO SCH (08:38)
[2021-08-24] MEDS: ADVANCED PROBIOTIC 1250 MG CAPSULE PO SCH (08:38)
[2021-08-24] MEDS: guaiFENesin 600 MG TABCR PO SCH (08:38)
[2021-08-24] MEDS: predniSONE 20 MG TAB PO SCH (08:38)
--- NOTE | 2021-08-24 16:09 | Discharge Summary ---
Date of Service August 24, 2021 Admission HPI Per Admitting Provider This is an 81 y/o female with a PMH of O2-dependent COPD, prior COVID pneumonia in Nov 2020 with recurrent episodes of pneumonia since then, CKD, bronchiectasis, depression, dementia, AAA, HTN, dyslipidemia, suspected asthma, and PVD who presents to the ED with progressive weakness, dyspnea, and new-onset of fever. History from the patient is limited due to dementia and confusion so the majority of the history is from the pt's daughter, Mary, and the chart, which was extensively reviewed. Pt was admitted to this facility in Nov 2020 with COVID pneumonia, which was treated with remedesivir and dexamethasone. Since then, she has had 3-4 episodes of recurrent pneumonia including one in late January/early February for which she was admitted. There was concern for aspiration so she underwent video swallow in April and subsequent speech evaluation in May. However, this work-up did not show aspiration at that time although there was some evidence of oropharyngeal and laryngeal dysphagia. Pt has not yet received the COVID vaccine. She was noted to have concerning RUL nodules during her last admission and was scheduled for a f/u outpatient CT chest. This was done on 04/18/21 and showed: "IMPRESSION: Partial resolution of left lower lobe consolidative opacity. Interval enlargement of additional spiculated right upper lobe nodule and increased density of right apical nodule, suspicious for neoplasia. Multiple additional indeterminate right lower lobe ground-glass parenchymal changes. Recommend PET/CT for further evaluation." Her outpatient pulmonary provider recommended bronchoscopy with EBUS for further evaluation. However, her family was unsure if they wanted to pursue this with pt's advanced age and underlying conditions as they do not think that they would want to pursue additional treatment if malignancy is identified. Pt's pulm appt to discuss in June was rescheduled for August. 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 Her current symptoms started 3-4 days ago with a runny nose and slight worsening of chronic cough. The cough has gradually worsened since then. Sputum at baseline is clear to yellow-tinged but pt/her daughter have noticed a tinge of blood in the past day or two. Over the past 24-48 hours, pt has been more short of breath and increasingly weak and fatigued. Last night, pt's daughter think that she developed a fever. When she ambulated to the bathroom off O2, her sats dropped to 81%, which is apparently unusual for her. Family had tried to move up her home visit from tomorrow to today but due to pt's worsening condition, they brought her to the ED for evaluation instead. Admission Exam Per Admitting Provider Constitutional: no acute distress Sleeping but arousable, quickly falls back to sleep Neck: trachea midline Respiratory: no respiratory distress and does not use accessory muscles Auscultation: + diminished lung sounds, + rhonchi and + wheezes mildly increased WOB noted Cardiovascular: Rate/Rhythm: regular rate and regular rhythm Vessels: dorsalis pedis pulses present and radial pulses present Extremities: no pedal edema Gastrointestinal (Abdomen): Inspection/Auscultation: normal bowel sounds; abdomen not distended Percussion/Palpation: abdomen soft; abdomen nontender Musculoskeletal: Head/Neck/Chest: normocephalic, head atraumatic and neck supple Skin: thin, fragile skin with multiple areas of eccymosis Neurologic: moves all extremities and + confused drowsy but arousable Principal Diagnosis COPD exacerbation Pneumonia Right upper lobe mass Multiple pulmonary nodules Discharge Exam GENERAL: Alert and oriented x to self. NAD, on 2L. HEENT: No pallor, no icterus. Pupils equal, round and reactive to light. Oral mucosa moist. NECK: No JVD, no neck masses. HEART: S1 and S2 heard. Regular rate and rhythm. No murmur, no gallop. RESPIRATORY SYSTEM: Normal AP diameter. No accessory muscle use. No wheezing. Crackles improved significantly compared to yesterday. ABDOMEN: Soft, bowel sounds present, nontender, no distention. CENTRAL NERVOUS SYSTEM: No facial droop. Speech is clear. Obeys simple commands. Moves extremities. EXTREMITIES: No edema, no erythema seen. Urinary catheter in situ with yellow urine collection. Discharge Data Allergies Allergy/AdvReac Type Severity Reaction Status Date / Time No Known Allergies Allergy Unverified 08/14/21 08:41 Consultations 08/14/21 08:20 ED Decision to Admit Stat 08/14/21 10:48 Consult Pulmonology Routine 08/14/21 11:11 Consult Palliative Care Routine 08/19/21 12:57 Consult Orthopedic Surgery Routine Ordered Studies 08/15/21 08:00 CT chest diagnostic wo con Routine 08/15/21 23:21 CT abd pelvis IV con only Routine 08/18/21 20:16 CT cervical spine wo con Urgent CT head/brain wo con Urgent 08/19/21 10:28 CT pelvis wo con Urgent 08/19/21 10:29 CT femur RT wo con Urgent Hospital Course (1) COPD exacerbation: (2) Recurrent pneumonia: (3) Multiple pulmonary nodules: 81 y/o female with a PMH of O2-dependent COPD, prior COVID pneumonia in Nov 2020 (no COVID vaccine yet) with recurrent episodes of pneumonia since then, CKD, bronchiectasis, depression, dementia, AAA, HTN, dyslipidemia, suspected asthma, and PVD who presents to the ED 08/14 with progressive weakness, dyspnea, and new- onset of fever started 3 to 4 days [employer]. She was managed for the following while inpatient: #. COPD exacerbation w/ emphysema: Pt on flovent and spiriva at home #. Pneumonia #. Pulmonary nodule Admitting complain of worsening shortness of breath, fever and weakness Exposed to rhinovirus and RSV from grand children COVID-19 negative and procalcitonin negative RSV positive Admitting Chest x-ray - no acute process Admitting CT chest: Multiple pulmonary nodules. Large solid nodule (2.4x1.8 cm) with lobulated contour within paramediastinal aspect of the right upper lobe is highly concerning for malignancy. Further evaluation by oncology and possible PET/CT is suggested. When compared to April 2021 CT chest, significant increase in size of the mass. Findings discussed with patient's granddaughter by Dr. Reynolds. Patient is stable at 2 L oxygen [her baseline] Continue flutter valve, guaifenesin and incentive spirometry Pulm Consulted: Recommends Anoro/Stiolto or Trelegy. DC flovent on discharge. Recommends continuing with Mucomyst as well as hypertonic nebulized saline along with flutter valve at home. For lung nodule recommends outpatient. PET/CT scan. Patient's family will have enough time to decide if they want to proceed with any diagnostic procedures. Patient completed 5 days of doxycycline for tree-in-bud opacities but later developed pneumonia, currently on Augmentin. 08/23 sputum culture: GNB. Patient will be discharged on Augmentin. Follow-up CXR in 4 to 6 weeks to document resolution of pneumonia. Palliative care on board for goals of care. #. 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 R hip pain/ leg pain Patient had a fall earlier while in the hospital, hit her buttocks, R hip, falling from bed. X-ray of pelvis and right hip were obtained and were negative. Family was updated. Next day, she reported pain in the right hip/leg when she ambulated with the nurse to bedside commode Obtained CT pelvis right hip, right femur: Minimally displaced fracture of the right inferior pubic ramus. Orthopedics consulted: Recommended conservative management and physical therapy for gait training and increasing walking tolerance with assist x1. Follow-up w [facility] orthopedic clinic with Dr. Daily at [facility] upon discharge for further radiographic surveillance. #. Thrombocytopenia Platelet 87 at presentation No sign of active bleeding Resolved #. Transaminitis LFT increase with AST 90 and ALT 86, now downtrending CT abdomen obtained revealed mild splenomegaly. No adenopathy or evidence of metastatic disease within the abdomen or pelvis. #. DVT Prophylaxis: Heparin subQ BID while inpatient. Code Status: Full code PT/OT recommending SNF placement versus 10/06 care at home with home health services. Pt's family would prefer not to have patient in prison at this time, they are aware that this may require much more of their efforts and help. Patient will need frequent repositioning due to pain control, not able to do with regular bed. Being discharged to home home with hospital bed and home health services for continued physical therapy. Patient's granddaughter Sol given a call prior to discharge and following instructions were communicated: Follow-up with your primary care physician within a week time. Complete the course of antibiotic as prescribed for pneumonia. Take medications as prescribed. Follow-up with orthopedic clinic with Dr. Daily at [facility] upon discharge. Establish and follow-up with oncology doctor for PET/CT scan and further evaluation of multiple pulmonary nodules. You will need a follow-up chest x-ray to document the resolution of pneumonia in 4 to 6 weeks. Continue with physical therapy for gait training and increasing walking tolerance. Continue with Mucomyst as well as hypertonic nebulized saline along with flutter valve at home Lung doctor evaluated you while inpatient, recommended stopping voriconazole and Flovent. Follow-up with your outpatient lung doctor for further discussion on it. A new inhalation medication has been added in place of Flovent. Total Time Total Time Spent Total Time Spent (In Minutes): 50 Discharge Plan Discharge Items Patient Disposition: Home - Home Health Services Reason For Visit: COPD EXACERBATION Discharge Diagnosis: COPD exacerbation Pneumonia Right upper lobe mass Multiple pulmonary nodules Activity: Per Instructions section Non-emergency contact: Primary Care Provider Call non-emergency contact if: you have any medication questions and your symptoms worsen Follow-up/Referrals: Dimitri Mcgraw MD [Outside Practitioners] - 09/04/21 10:00 am (Date & Time 09/04/2021 10:00 AM Provider Dimitri Mcgraw MD Department Orthopaedics [facility] ) Raz Hayes MD [Primary Care Provider] - 08/30/21 2:40 pm (Date & Time 08/30/2021 2:40 PM Provider Raz Hayes MD Department Family Practice [facility] ) Juan J Waldron MD [Outside Practitioners] - 09/15/21 3:20 pm (Date & Time 09/15/2021 3:20 PM Provider Juan J Waldron MD Department Pulmonary Medicine, [facility] ) Diet: Heart Healthy Diet Texture: Easy to Chew Addtl Attending Provider Instructions: Follow-up with your primary care physician within a week time. Complete the course of antibiotic as prescribed for pneumonia. Take medications as prescribed. Follow-up with orthopedic clinic with Dr. Daily at [facility] upon discharge. Establish and follow-up with oncology doctor for PET/CT scan and further evaluation of multiple pulmonary nodules. You will need a follow-up chest x-ray to document the resolution of pneumonia in 4 to 6 weeks. Continue with physical therapy for gait training and increasing walking tolerance. Continue with Mucomyst as well as hypertonic nebulized saline along with flutter valve at home Lung doctor evaluated you while inpatient, recommended stopping voriconazole and Flovent. Follow-up with your outpatient lung doctor for further discussion on it. A new inhalation medication has been added in place of Flovent. Pending Studies at Discharge: Yes (08/23 sputum culture final results.) Stand-Alone Forms: My [employer], Smoking Cessation Medications and DC Order Prescriptions: New Anoro Ellipta 62.5-25 mcg/actuation Blister With Device 1 ea inhalation DAILY Qty: 14 RF: 0 sodium chloride 7 % Solution For Nebulization 4 ml NEB BIDR Qty: 240 RF: 0 acetylcysteine 200 mg/mL (20 %) Solution 5 ml inhalation Q12R Qty: 30 RF: 0 amoxicillin-pot clavulanate [Augmentin] 875-125 mg Tablet 1 tab PO BIDM 7 Days Qty: 14 RF: 0 Advanced Probiotic 625 mg (10 billion cell) Capsule 2 cap PO DAILY 7 Days Qty: 14 RF: 0 Continued pravastatin 40 mg tablet 40 mg PO HS RF: 0 sertraline 100 mg tablet 100 mg PO QPM RF: 0 sertraline 50 mg tablet 50 mg PO QPM RF: 0 albuterol sulfate 2.5 mg /3 mL (0.083 %) solution for nebulization 2.5 mg inhalation UD RF: 0 cholecalciferol (vitamin D3) [Vitamin D3] 50 mcg (2,000 unit) Capsule 50 mcg PO QAM RF: 0 guaifenesin [Mucinex] 600 mg Tablet Extended Release 12hr 1,200 mg PO BID RF: 0 aspirin 81 mg Tablet 81 mg PO DAILY RF: 0 diclofenac sodium 1 % gel 1 ea TOPICAL QID PRN (Reason: Pain) RF: 0 furosemide 20 mg tablet 20 mg PO DAILY PRN (Reason: Fluid Retention) RF: 0 Discontinued Flovent HFA 110 mcg/actuation HFA aerosol inhaler 2 puff INHALATION BID RF: 0 voriconazole 200 mg tablet 400 mg PO QPM RF: 0 voriconazole 200 mg tablet 200 mg PO QAM RF: 0 Spiriva Respimat 2.5 mcg/actuation mist 2 puff INHALATION DAILY RF: 0 Discharge Orders: Discharge Order (Routine); Ordered 08/24/21 Ordered By: Olga Lidia Solomon Admission Data Admit Date/Time: 08/14/21 09:28 Attending Provider: Olga Lidia Solomon Admit Provider: Mark Torres Primary Care Provider: Raz Hayes Other Providers: Mark Torres ; Dhruv Jarvis [facility] ; Rufus Nelson ; Conner Daily ; David Salgado ; Michelle Saravia ; Jose Serna ; Margarita Lieberman ; Javid Hernandez ; Ankush Hernandez ; Dionisio Naidu ; Travis Humphrey. ; Ankush Mcguire ; Fermin Ramsey ; Vel Bunch ; Matthew Butt ; Dimitri Lozoya ; Margarita Zavala ; Tiburcio Quevedo ; Cameron Brenner ; Christina Mueller ; Roberto Gallo ; Harriet Sanchez ; Michael Blunt ; Art Reynolds ; Judy Fierro
== END 2021-08-24 18:40 | disposition home health service (06) | DRG 190 ==
LOC: ED 06:06 → SUATTDRO 09:28 → 2N 09:28
DX: J18.9 Pneumonia, unspecified organism; S32.591A Other specified fracture of right pubis, initial encounter for closed fracture; Z86.711 Personal history of pulmonary embolism; N18.30 Chronic kidney disease, stage 3 unspecified; J44.1 Chronic obstructive pulmonary disease with (acute) exacerbation; D69.6 Thrombocytopenia, unspecified; Z22.8 Carrier of other infectious diseases; S70.01XA Contusion of right hip, initial encounter; R91.8 Other nonspecific abnormal finding of lung field; E78.5 Hyperlipidemia, unspecified; Z99.81 Dependence on supplemental oxygen; I12.9 Hypertensive chronic kidney disease with stage 1 through stage 4 chronic kidney disease, or unspecified chronic kidney disease; R74.01 Elevation of levels of liver transaminase levels; Z79.82 Long term (current) use of aspirin; F03.90 Unspecified dementia, unspecified severity, without behavioral disturbance, psychotic disturbance, mood disturbance, and anxiety; W18.39XA Other fall on same level, initial encounter; Z87.891 Personal history of nicotine dependence; I73.9 Peripheral vascular disease, unspecified; R79.89 Other specified abnormal findings of blood chemistry; Z86.16 Personal history of COVID-19; Z86.73 Personal history of transient ischemic attack (TIA), and cerebral infarction without residual deficits; Y92.230 Patient room in hospital as the place of occurrence of the external cause; J98.4 Other disorders of lung; J44.0 Chronic obstructive pulmonary disease with (acute) lower respiratory infection; F32.9 Major depressive disorder, single episode, unspecified; Y93.01 Activity, walking, marching and hiking

== ENCOUNTER 2021-08-29 16:59 | Inpatient (IN) ==
--- NOTE | 2021-08-29 17:58 | Emergency Department Note ---
Impression & Plan Acute pyelonephritis, Weakness, Fever, Elevated troponin I level, Thrombocytopenia ED Provider Note NAME: MALISSA CORRAL AGE: 81 SEX: F : 1940 ARRIVES VIA: Ambulance INFORMANT: Patient, the patient's daughter ED PROVIDER(S): Yury Villa DO CHIEF COMPLAINT: Fever and weakness HPI: The patient is an 81-year-old female who presented to the emergency department for generalized weakness. The patient was in our facility recently with sepsis due to urinary source. She also had pneumonia. She was discharged to home last week. According to her daughter she is doing poorly. She is having difficulty ambulating. She was noted today to have chills and when the visiting nurse was made aware they recommended the patient come the emergency department for testing for sepsis. The patient has been compliant with her usu al medications. She does have a history of frequent falls and was recently diagnosed with a pelvic fracture. She is currently taking Augmentin. She also has a history of bronchiectasis. The patient's symptoms were moderate to severe. Her daughter was very concerned that she was developing another infection in her urine. The patient herself is had no vomiting or abdominal pain. She has no rashes. She has had no new falls according to the daughter. ROS: See above HPI for pertinent positives & negatives. A total of 10 systems reviewed and were otherwise negative. PAST MEDICAL HISTORY: See Below PAST SURGICAL HISTORY: See Below FAMILY HISTORY: See Below SOCIAL HISTORY: See Below HOME MEDICATIONS: See Below ALLERGIES: See Below VITALS: See Below PHYSICAL EXAMINATION: GENERAL: The patient is awake and looking around the room. She seems somewhat absent. EYES: The conjunctivae are clear. The pupils are round and reactive. EARS, NOSE, MOUTH AND THROAT: The nose is without any evidence of any deformity. Mucous membranes are dry. NECK: The neck is nontender and supple. RESPIRATORY: Diminished breath sounds are noted throughout. Coarse rhonchi were noted in all lung mckinney. There is no tachypnea or conversational dyspnea. CARDIOVASCULAR: Regular rate and rhythm noted there no murmurs rubs or gallops normal S1 normal S2. GASTROINTESTINAL: The abdomen is soft. Abdomen is nontender. MUSCULOSKELETAL/EXTREMITIES: There is no evidence of gross deformity full range of motion is noted in the hips and shoulders. SKIN: Skin was warm and dry. Pedal edema was noted bilaterally. NEUROLOGIC: Patient is awake and oriented to person but not place time or situation. She recognizes her daughter by name but does not realize that she is her daughter. Strength was diminished but symmetric. MEDICAL DECISION MAKING: The patient is an 81-year-old female who presented to the emergency department for an evaluation of multiple complaints. The patient recently was discharged from our facility. The patient has a recent diagnosis of pneumonia for which she is taking an antibiotic. She also has a recent diagnosis of a pelvic fracture. She was evaluated by the outpatient visiting nurse. She was sent to the emergency department because of chills and rigors at home. I discussed patient's laboratory and radiographic studies with her and her daughter. She was found no signs of urinary tract infection on urinalysis. Her most recent urinalysis did have gram-negative bacilli. I would be concerned that this could represent gram-negative bacteremia given her findings. She was treated with IV fluids. She was reevaluated multiple times. I discussed the patient's findings with her daughter. I did offer for the patient to be discharged to home given her age and comorbidities I am unsure how aggressive the patient would want to be with her condition. They would like her to be evaluated for inpatient management as well as possible inpatient rehab after this acute urinary tract infection is controlled. For this reason I discussed her case with the on-call [facility]. They have agreed to evaluate the patient in the emergency department for further management and disposition. Triage Nursing notes reviewed. Prior medical records reviewed Vital Signs: reviewed and remarkable for fever and hypotension. Differential diagnosis: Infection, dehydration, metabolic abnormality, hypo/hyperglycemia, electrolyte disturbance, anemia, hypoxia, cardiac sources, intracerebral event, toxicologic, neurologic, as well as other pathologies. ER treatment provided: See below Diagnostics interpreted by me: ECG: EKG was obtained in the emergency department. My interpretation is sinus rhythm at 99 bpm. No PVCs were noted. Nonspecific T wave abnormalities were noted. Poor R wave progression was noted. This was compared to a tracing from August 152020. No changes were noted. Cardiac Monitoring: An order was placed for continuous cardiac monitoring. The monitor shows a rate of 79 bpm with sinus rhythm. Laboratory studies: As stated above and show below. Imaging studies: See below Consultation(s): I discussed this case with Dr. Harrison who is on-call for the [facility] group. Past Med/Surg History Medical History AAA (abdominal aortic aneurysm) "s/p repair of ruptured AAA in 2010" Bronchiectasis CKD (chronic kidney disease), stage III COPD (chronic obstructive pulmonary disease) Dementia Depression Female stress incontinence H/O: CVA (cerebrovascular accident) Hip fracture History of COVID-19 History of pulmonary embolism HTN (hypertension) Hyperlipidemia Palliative care encounter Peripheral vascular disease Pulmonary nodule Recurrent pneumonia Tobacco use disorder Weakness Surgical History S/P AAA repair "s/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 Desir with bifurcated graft, left femoral thromboendarterectomy with patch angioplasty, right femoral thromboendarterectomy, and right iliofemoral bypass" S/P laparotomy "10/16/11- abdominal exploration, wound vac placement; 10/18/11- abdominal washout and closure. 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 Beliefs That Will Affect Care: None marital status: / marital status details: of COVID in Nov 2020 Current Living Situation: Family Feels Safe at Home: Yes Assistive Devices: Glasses, Oxygen - Continuous and Walker Allergies Allergies Allergy/AdvReac Type Severity Reaction Status Date / Time No Known Allergies Allergy Verified 08/29/21 17:36 Home Meds Home Medications Medication Instructions Recorded Confirmed pravastatin 40 mg tablet 40 mg PO HS 09/21/19 08/29/21 sertraline 100 mg tablet 100 mg PO QPM 09/21/19 08/29/21 sertraline 50 mg tablet 50 mg PO QPM 09/21/19 08/29/21 albuterol sulfate 2.5 mg INHALATION DIRECTED 11/01/20 08/29/21 cholecalciferol (vitamin D3) 50 50 mcg PO QAM 02/14/21 08/29/21 mcg (2,000 unit) capsule (Vitamin D3) diclofenac sodium 1 % topical gel 1 ea TOPICAL QID PRN 02/14/21 08/29/21 guaifenesin 600 mg tablet, 1,200 mg PO BID 02/14/21 08/29/21 extended release 12 hr (Mucinex) furosemide 20 mg tablet 20 mg PO DAILY PRN 08/14/21 08/29/21 acetylcysteine 200 mg/mL (20 %) 5 ml INHALATION Q12H 08/29/21 08/29/21 solution aspirin 81 mg tablet,delayed 81 mg PO DAILY 08/29/21 08/29/21 release sodium chloride 7 % for 4 ml NEB BID 08/29/21 08/29/21 nebulization Previous Rx's Medication Instructions Recorded umeclidinium 62.5 mcg-vilanterol 1 ea INHALATION DAILY #14 ea 08/17/21 25 mcg/actuation powdr for inhalation (Anoro Ellipta) L.acidop,casei,lactis,rham-B.lact,jackie 2 cap PO DAILY 7 Days #14 cap 08/24/21 625 mg (10 billion cell) capsule (Advanced Probiotic) amoxicillin 875 mg-potassium 1 tab PO BIDM 7 Days #14 tab 08/24/21 clavulanate 125 mg tablet (Augmentin) Results & Data (ED) Vital Signs Vital Signs - 24 hr 08/29/21 17:10 08/29/21 19:46 08/29/21 19:48 Temperature 37.8 C H 39.4 C H Temperature Source Oral Oral Pulse Rate 98 H 98 H Pulse Rate [Right Finger] 98 H Pulse Rate from SpO2 Sensor Pulse Rhythm Regular Pulse Strength Normal Respiratory Rate 20 22 22 Respiratory Effort / Characteristics Non-Labored Spontaneous Respiratory Depth Normal Respiratory Pattern Regular Blood Pressure 135/71 Blood Pressure [Right Arm] 112/70 Blood Pressure Mean 92 Blood Pressure Mean [Right Arm] 84 Blood Pressure Position Sitting Blood Pressure Position [Right Arm] Lying Pulse Oximetry 88 L 94 94 Oxygen Delivery Method Room Air Nasal Cannula Nasal Cannula Oxygen Flow Rate 2 2 Sepsis Recent Fever Within 48 Hours Yes Sepsis New/Unexplained Change in Mental Status No Sepsis Action Taken by Nursing No Action Required 08/29/21 19:49 08/29/21 19:52 08/29/21 20:00 Temperature Temperature Source Pulse Rate 99 H 97 H Pulse Rate [Right Finger] Pulse Rate from SpO2 Sensor 95 H 101 H Pulse Rhythm Pulse Strength Respiratory Rate 22 19 21 Respiratory Effort / Characteristics Non-Labored Spontaneous Non-Labored Spontaneous Respiratory Depth Respiratory Pattern Blood Pressure Blood Pressure [Right Arm] Blood Pressure Mean Blood Pressure Mean [Right Arm] Blood Pressure Position Blood Pressure Position [Right Arm] Pulse Oximetry 95 94 94 Oxygen Delivery Method Nasal Cannula Nasal Cannula Nasal Cannula Oxygen Flow Rate 2 2 2 Sepsis Recent Fever Within 48 Hours Sepsis New/Unexplained Change in Mental Status Sepsis Action Taken by Nursing 08/29/21 20:10 08/29/21 20:20 08/29/21 20:30 Temperature Temperature Source Pulse Rate 100 H 98 H 106 H Pulse Rate [Right Finger] Pulse Rate from SpO2 Sensor 95 H 107 H 104 H Pulse Rhythm Pulse Strength Respiratory Rate 22 17 19 Respiratory Effort / Characteristics Non-Labored Spontaneous Respiratory Depth Respiratory Pattern Blood Pressure 111/62 Blood Pressure [Right Arm] Blood Pressure Mean 78 Blood Pressure Mean [Right Arm] Blood Pressure Position Blood Pressure Position [Right Arm] Pulse Oximetry 93 92 95 Oxygen Delivery Method Nasal Cannula Nasal Cannula Nasal Cannula Oxygen Flow Rate 2 2 2 Sepsis Recent Fever Within 48 Hours Sepsis New/Unexplained Change in Mental Status Sepsis Action Taken by Nursing 08/29/21 20:40 08/29/21 20:50 08/29/21 21:00 Temperature 38.2 C H Temperature Source Oral Pulse Rate 105 H 105 H 90 Pulse Rate [Right Finger] 96 H Pulse Rate from SpO2 Sensor 105 H 105 H 97 H Pulse Rhythm Pulse Strength Respiratory Rate 21 24 19 Respiratory Effort / Characteristics Non-Labored Spontaneous Respiratory Depth Respiratory Pattern Blood Pressure 109/53 L Blood Pressure [Right Arm] 109/53 L Blood Pressure Mean 71 Blood Pressure Mean [Right Arm] 71 Blood Pressure Position Blood Pressure Position [Right Arm] Pulse Oximetry 93 95 93 Oxygen Delivery Method Nasal Cannula Nasal Cannula Oxygen Flow Rate 2 2 Sepsis Recent Fever Within 48 Hours Sepsis New/Unexplained Change in Mental Status Sepsis Action Taken by Nursing 08/29/21 21:10 08/29/21 21:20 08/29/21 21:30 Temperature Temperature Source Pulse Rate 89 91 H 91 H Pulse Rate [Right Finger] Pulse Rate from SpO2 Sensor 94 H 97 H 88 Pulse Rhythm Pulse Strength Respiratory Rate 21 16 21 Respiratory Effort / Characteristics Respiratory Depth Respiratory Pattern Blood Pressure 111/57 L Blood Pressure [Right Arm] Blood Pressure Mean 75 Blood Pressure Mean [Right Arm] Blood Pressure Position Blood Pressure Position [Right Arm] Pulse Oximetry 94 95 95 Oxygen Delivery Method Nasal Cannula Oxygen Flow Rate 2 Sepsis Recent Fever Within 48 Hours Sepsis New/Unexplained Change in Mental Status Sepsis Action Taken by Nursing 08/29/21 21:40 08/29/21 21:50 Temperature Temperature Source Pulse Rate 95 H 79 Pulse Rate [Right Finger] Pulse Rate from SpO2 Sensor 90 88 Pulse Rhythm Pulse Strength Respiratory Rate 19 18 Respiratory Effort / Characteristics Respiratory Depth Respiratory Pattern Blood Pressure Blood Pressure [Right Arm] Blood Pressure Mean Blood Pressure Mean [Right Arm] Blood Pressure Position Blood Pressure Position [Right Arm] Pulse Oximetry 94 94 Oxygen Delivery Method Nasal Cannula Oxygen Flow Rate 2 Sepsis Recent Fever Within 48 Hours Sepsis New/Unexplained Change in Mental Status Sepsis Action Taken by Half-Way Medications Current Medication List: was personally reviewed by me Laboratory Data Attestation: I reviewed the patient's lab results. Result diagrams: 08/29/21 18:03 08/29/21 18:03 Lab Results 08/29/21 08/29/21 08/29/21 Range/Units 18:03 18:03 18:03 WBC 12.01 H (4.8-10.8) K/uL RBC 3.82 L (4.2-5.4) M/uL Hgb 11.5 L (12.0-16.0) g/dL Hct 34.2 L (37-47) % MCV 89.5 (80-100) fL MCH 30.1 (25-34) pg MCHC 33.6 (32-36) g/dL RDW Std Deviation 48.2 H (36.4-46.3) fL RDW Coeff of Wayne 14.7 H (11.5-14.5) % Plt Count 98 L (130-400) K/uL MPV 10.7 H (7.4-10.4) fL Immature Gran % (Auto) 0.4 % Neut % (Auto) 93.9 % Lymph % (Auto) 2.6 % [place] % (Auto) 2.7 % Eos % (Auto) 0.4 % Baso % (Auto) 0.0 % Neut # (Auto) 11.27 H (1.4-6.5) K/uL Lymph # (Auto) 0.31 L (1.2-3.4) K/uL [place] # (Auto) 0.33 (0.11-0.59) K/uL Eos # (Auto) 0.05 (0-0.5) K/uL Baso # (Auto) 0.00 (0-0.2) K/uL Immature Gran # (Auto) 0.05 H (0.00-0.02) K/uL Platelet Estimate Decreased L (Normal) Polychromasia 1+ PT 11.4 (9.0-12.0) Seconds INR 1.1 (0.9-1.1) APTT 21.7 (21.0-31.0) Seconds PTT Ratio 0.8 VBG pH (7.36-7.41) VBG pCO2 (38-50) mmHg VBG pO2 mmHg VBG HCO3 mmol/L VBG O2 Saturation % VBG Base Excess mEq/L Barometric Pressure mm/Hg Sodium 135 L (136-145) mmol/L Potassium 4.0 (3.5-5.1) mmol/L Chloride 104 (98-107) mmol/L Carbon Dioxide 23 (21-32) mmol/L Anion Gap 8.0 (3-11) BUN 26 H (7-18) mg/dl Creatinine 0.90 (0.6-1.2) mg/dl Est Cr Clr Drug Dosing 37.5 ml/min Est GFR ( Amer) 69.0 ml/min Est GFR (Non-Af Amer) 59.5 ml/min BUN/Creatinine Ratio 28.7 H (10-20) Glucose 109 H (70-99) mg/dl Lactate (0.4-2.0) mmol/L Calcium 8.6 (8.5-10.1) mg/dl Magnesium 2.2 (1.8-2.4) mg/dl Total Bilirubin 0.4 (0.2-1) mg/dl AST 24 (15-37) U/L ALT 33 (12-78) U/L Alkaline Phosphatase 251 H (45-117) U/L Troponin I 0.081 H* (0-0.045) ng/ml Total Protein 6.8 (6.4-8.2) gm/dl Albumin 2.4 L (3.4-5.0) gm/dl Globulin 4.4 H (2.5-4.0) gm/dl Albumin/Globulin Ratio 0.6 L (0.9-2) Procalcitonin (0-0.5) ng/ml Urine Color Urine Appearance (Clear) Urine pH (4.5-7.5) Ur Specific [place] (1.000-1.030) Urine Protein (Negative) Urine Glucose (UA) (Negative) Urine Ketones (Negative) Urine Blood (Negative) Urine Nitrite (Negative) Urine Bilirubin (Negative) Urine Urobilinogen (Negative) Ur Leukocyte Esterase (Negative) Urine WBC (Auto) (0-5) /hpf Urine RBC (Auto) (0-4) /hpf U Hyaline Cast (Auto) (0-5) /lpf U Epithel Cells (Auto) (0-5) /lpf Urine Bacteria (Auto) (Negative) Ur Renal Epithelial Cell Urine Yeast (None Prsent) 08/29/21 08/29/21 08/29/21 Range/Units 18:03 18:03 19:03 WBC (4.8-10.8) K/uL RBC (4.2-5.4) M/uL Hgb (12.0-16.0) g/dL Hct (37-47) % MCV (80-100) fL MCH (25-34) pg MCHC (32-36) g/dL RDW Std Deviation (36.4-46.3) fL RDW Coeff of Wayne (11.5-14.5) % Plt Count (130-400) K/uL MPV (7.4-10.4) fL Immature Gran % (Auto) % Neut % (Auto) % Lymph % (Auto) % [place] % (Auto) % Eos % (Auto) % Baso % (Auto) % Neut # (Auto) (1.4-6.5) K/uL Lymph # (Auto) (1.2-3.4) K/uL [place] # (Auto) (0.11-0.59) K/uL Eos # (Auto) (0-0.5) K/uL Baso # (Auto) (0-0.2) K/uL Immature Gran # (Auto) (0.00-0.02) K/uL Platelet Estimate (Normal) Polychromasia PT (9.0-12.0) Seconds INR (0.9-1.1) APTT (21.0-31.0) Seconds PTT Ratio VBG pH 7.42 H (7.36-7.41) VBG pCO2 35 L (38-50) mmHg VBG pO2 37 mmHg VBG HCO3 22 mmol/L VBG O2 Saturation 69.7 % VBG Base Excess -2.0 mEq/L Barometric Pressure 733.5 mm/Hg Sodium (136-145) mmol/L Potassium (3.5-5.1) mmol/L Chloride (98-107) mmol/L Carbon Dioxide (21-32) mmol/L Anion Gap (3-11) BUN (7-18) mg/dl Creatinine (0.6-1.2) mg/dl Est Cr Clr Drug Dosing ml/min Est GFR ( Amer) ml/min Est GFR (Non-Af Amer) ml/min BUN/Creatinine Ratio (10-20) Glucose (70-99) mg/dl Lactate 1.2 (0.4-2.0) mmol/L Calcium (8.5-10.1) mg/dl Magnesium (1.8-2.4) mg/dl Total Bilirubin (0.2-1) mg/dl AST (15-37) U/L ALT (12-78) U/L Alkaline Phosphatase (45-117) U/L Troponin I (0-0.045) ng/ml Total Protein (6.4-8.2) gm/dl Albumin (3.4-5.0) gm/dl Globulin (2.5-4.0) gm/dl Albumin/Globulin Ratio (0.9-2) Procalcitonin 0.17 (0-0.5) ng/ml Urine Color Urine Appearance (Clear) Urine pH (4.5-7.5) Ur Specific [place] (1.000-1.030) Urine Protein (Negative) Urine Glucose (UA) (Negative) Urine Ketones (Negative) Urine Blood (Negative) Urine Nitrite (Negative) Urine Bilirubin (Negative) Urine Urobilinogen (Negative) Ur Leukocyte Esterase (Negative) Urine WBC (Auto) (0-5) /hpf Urine RBC (Auto) (0-4) /hpf U Hyaline Cast (Auto) (0-5) /lpf U Epithel Cells (Auto) (0-5) /lpf Urine Bacteria (Auto) (Negative) Ur Renal Epithelial Cell Urine Yeast (None Prsent) 08/29/21 Range/Units 20:08 WBC (4.8-10.8) K/uL RBC (4.2-5.4) M/uL Hgb (12.0-16.0) g/dL Hct (37-47) % MCV (80-100) fL MCH (25-34) pg MCHC (32-36) g/dL RDW Std Deviation (36.4-46.3) fL RDW Coeff of Wayne (11.5-14.5) % Plt Count (130-400) K/uL MPV (7.4-10.4) fL Immature Gran % (Auto) % Neut % (Auto) % Lymph % (Auto) % [place] % (Auto) % Eos % (Auto) % Baso % (Auto) % Neut # (Auto) (1.4-6.5) K/uL Lymph # (Auto) (1.2-3.4) K/uL [place] # (Auto) (0.11-0.59) K/uL Eos # (Auto) (0-0.5) K/uL Baso # (Auto) (0-0.2) K/uL Immature Gran # (Auto) (0.00-0.02) K/uL Platelet Estimate (Normal) Polychromasia PT (9.0-12.0) Seconds INR (0.9-1.1) APTT (21.0-31.0) Seconds PTT Ratio VBG pH (7.36-7.41) VBG pCO2 (38-50) mmHg VBG pO2 mmHg VBG HCO3 mmol/L VBG O2 Saturation % VBG Base Excess mEq/L Barometric Pressure mm/Hg Sodium (136-145) mmol/L Potassium (3.5-5.1) mmol/L Chloride (98-107) mmol/L Carbon Dioxide (21-32) mmol/L Anion Gap (3-11) BUN (7-18) mg/dl Creatinine (0.6-1.2) mg/dl Est Cr Clr Drug Dosing ml/min Est GFR ( Amer) ml/min Est GFR (Non-Af Amer) ml/min BUN/Creatinine Ratio (10-20) Glucose (70-99) mg/dl Lactate (0.4-2.0) mmol/L Calcium (8.5-10.1) mg/dl Magnesium (1.8-2.4) mg/dl Total Bilirubin (0.2-1) mg/dl AST (15-37) U/L ALT (12-78) U/L Alkaline Phosphatase (45-117) U/L Troponin I (0-0.045) ng/ml Total Protein (6.4-8.2) gm/dl Albumin (3.4-5.0) gm/dl Globulin (2.5-4.0) gm/dl Albumin/Globulin Ratio (0.9-2) Procalcitonin (0-0.5) ng/ml Urine Color Dark Yellow Urine Appearance Turbid A (Clear) Urine pH 5.5 (4.5-7.5) Ur Specific [place] 1.019 (1.000-1.030) Urine Protein 2+ H (Negative) Urine Glucose (UA) Negative (Negative) Urine Ketones Negative (Negative) Urine Blood 3+ H (Negative) Urine Nitrite Negative (Negative) Urine Bilirubin 1+ H (Negative) Urine Urobilinogen Negative (Negative) Ur Leukocyte Esterase 2+ H (Negative) Urine WBC (Auto) >30 H (0-5) /hpf Urine RBC (Auto) 10-30 H (0-4) /hpf U Hyaline Cast (Auto) 1-5 (0-5) /lpf U Epithel Cells (Auto) >30 H (0-5) /lpf Urine Bacteria (Auto) Negative (Negative) Ur Renal Epithelial Cell Not Reportable Urine Yeast Budding A (None Prsent) Administered Medications Discontinued Medications Acetaminophen (Acetaminophen 500 Mg Tab) 1,000 mg PO NOW STA Stop: 08/29/21 19:52 Last Admin: 08/29/21 20:10 Dose: 1,000 mg Documented by: [id number] Ceftriaxone Sodium (Rocephin) 1,000 mg in 50 mls @ 100 mls/hr IV NOW STA Stop: 08/29/21 21:16 Last Infusion: 08/29/21 21:30 Dose: 0 mls/hr Documented by: [id number] Admin: 08/29/21 21:00 Dose: 100 mls/hr Documented by: [id number] Imaging Data Radiologist's Impression: Chest X-Ray 08/29/21 17:36 XR chest 1V portable HISTORY: 81 years-old Female SEPSIS acute sepsis COMPARISON: Chest radiograph 08/22/2021, chest CT 08/15/2021. TECHNIQUE: Portable AP view the chest FINDINGS: Cardiac silhouette is mildly enlarged. Emphysema with chronic interstitial coarsening. No pneumothorax, large pleural effusion or overt pulmonary edema. Right suprahilar nodule is better seen on comparison chest CT. Mildly improved aeration of the right lung base. Ill-defined bibasilar densities are redemonstrated. Chronic right-sided rib fractures. Degenerative changes of the shoulders and spine. IMPRESSION: 1. Cardiomegaly without acute process. 2. Emphysema with chronic interstitial coarsening. 3. Right suprahilar pulmonary nodule redemonstrated and better characterized on the chest CT from 08/15/2021. ACT 112: Negative or not required by law. The above report was generated using voice recognition software. It may contain grammatical, syntax or spelling errors. Electronically signed by: Michael Zaldivar M.D. 08/29/2021 6:07 PM Discharge Plan Visit Data Chief Complaint: Urinary Symptoms Stated Complaint: URINARY SYMPTOMS ED Provider: Yury Villa Discharge Problem: Acute pyelonephritis, Weakness, Fever, Elevated troponin I level, Thrombocytopenia Patient Disposition: Being Evaluated by Hospitalist Forms Stand Alone Forms: My [facility] [employer] Prescriptions Prescriptions: No Action pravastatin 40 mg tablet 40 mg PO HS RF: 0 sertraline 100 mg tablet 100 mg PO QPM RF: 0 sertraline 50 mg tablet 50 mg PO QPM RF: 0 albuterol sulfate 2.5 mg /3 mL (0.083 %) solution for nebulization 2.5 mg inhalation DIRECTED RF: 0 cholecalciferol (vitamin D3) [Vitamin D3] 50 mcg (2,000 unit) Capsule 50 mcg PO QAM RF: 0 guaifenesin [Mucinex] 600 mg Tablet Extended Release 12hr 1,200 mg PO BID RF: 0 diclofenac sodium 1 % gel 1 ea TOPICAL QID PRN (Reason: Pain) RF: 0 furosemide 20 mg tablet 20 mg PO DAILY PRN (Reason: Fluid Retention) RF: 0 Anoro Ellipta 62.5-25 mcg/actuation Blister With Device 1 ea inhalation DAILY Qty: 14 RF: 0 amoxicillin-pot clavulanate [Augmentin] 875-125 mg Tablet 1 tab PO BIDM 7 Days Qty: 14 RF: 0 Advanced Probiotic 625 mg (10 billion cell) Capsule 2 cap PO DAILY 7 Days Qty: 14 RF: 0 aspirin 81 mg Tablet,Delayed Release (Dr/Ec) 81 mg PO DAILY RF: 0 acetylcysteine 200 mg/mL (20 %) solution 5 ml inhalation Q12H RF: 0 sodium chloride 7 % solution for nebulization 4 ml NEB BID RF: 0 Referrals Referrals: Raz Hayes MD [Primary Care Provider] -
--- NOTE | 2021-08-29 18:08 | XRay Report ---
XR chest 1V portable HISTORY: 81 years-old Female SEPSIS acute sepsis COMPARISON: Chest radiograph 08/22/2021, chest CT 08/15/2021. TECHNIQUE: Portable AP view the chest FINDINGS: Cardiac silhouette is mildly enlarged. Emphysema with chronic interstitial coarsening. No pneumothora x, large pleural effusion or overt pulmonary edema. Right suprahilar nodule is better seen on compari son chest CT. Mildly improved aeration of the right lung base. Ill-defined bibasilar densities are re demonstrated. Chronic right-sided rib fractures. Degenerative changes of the shoulders and spine. IMPRESSION: 1. Cardiomegaly without acute process. 2. Emphysema with chronic interstitial coarsening. 3. Right suprahilar pulmonary nodule redemonstrated and better characterized on the chest CT from 07/20. ACT 112: Negative or not required by law. The above report was generated using voice recognition software. It may contain grammatical, syntax o r spelling errors. Electronically signed by: Michael Zaldivar M.D. 08/29/2021 6:07 PM
[2021-08-29 18:15] LABS: Hematocrit (blood only) 34.2 % (37-47); Hemoglobin 11.5 g/dL (12.0-16.0); Mean Corpuscular Hemoglobin 30.1 pg (25-34); Mean Corpuscular Hgb Conc 33.6 g/dL (32-36); Mean Corpuscular Volume 89.5 fL (80-100); RDW Coefficient of Variation 14.7 % (11.5-14.5); RDW Standard Deviation 48.2 fL (36.4-46.3); Red Blood Count 3.82 M/uL (4.2-5.4); White Blood Count 12.01 K/uL (4.8-10.8)
[2021-08-29 18:27] LABS: INR 1.1 (0.9-1.1); Partial Thromboplastin Ratio 0.8; Partial Thromboplastin Time 21.7 Seconds (21.0-31.0); Prothrombin Time 11.4 Seconds (9.0-12.0)
[2021-08-29 18:37] LABS: Albumin Level 2.4 gm/dl (3.4-5.0); BUN Creatinine Ratio 28.7 (10-20); Calcium 8.6 mg/dl (8.5-10.1); Creatinine Clr Calc Pharmacy 37.5 ml/min; Est GFR (Non-African American) 59.5 ml/min; Magnesium 2.2 mg/dl (1.8-2.4)
[2021-08-29 18:52] LABS: Albumin Globulin Ratio 0.6 (0.9-2); Bilirubin,Total 0.4 mg/dl (0.2-1); Globulin 4.4 gm/dl (2.5-4.0); Total Protein 6.8 gm/dl (6.4-8.2); Troponin I 0.081 ng/ml (0-0.045)
[2021-08-29 18:56] LABS: Mean Platelet Volume 10.7 fL (7.4-10.4); Platelet Count 98 K/uL (130-400)
[2021-08-29 18:57] LABS: Eosinophils # (auto) 0.05 K/uL (0-0.5); Eosinophils % (auto) 0.4 %; Immature Granulocytes # (auto) 0.05 K/uL (0.00-0.02); Immature Granulocytes % (auto) 0.4 %; Lymphocytes # (auto) 0.31 K/uL (1.2-3.4); Lymphocytes % (auto) 2.6 %; Monocytes # (auto) 0.33 K/uL (0.11-0.59); Monocytes % (auto) 2.7 %; Neutrophils # (auto) 11.27 K/uL (1.4-6.5); Neutrophils % (auto) 93.9 %; Platelet Estimate Decreased (Normal); Polychromasia 1+
[2021-08-29 19:17] LABS: Oxygen Saturation VBG 69.7 %; pH VBG 7.42 (7.36-7.41)
[2021-08-29] MEDS ORDERED: ACETAMINOPHEN 500 MG TAB PO STA (19:51)
[2021-08-29 20:16] LABS: Appearance Urine Turbid (Clear); Bacteria Urine Automated Negative (Negative); Blood Urine 3+ (Negative); Color Urine Dark Yellow; Epithelial Cell Urine Auto >30 /lpf (0-5); Glucose Urine UA Negative (Negative); Ketones Urine Negative (Negative); Leukocyte Esterase Urine 2+ (Negative); Nitrite Urine Negative (Negative); Protein Urine 2+ (Negative); Specific Gravity Urine 1.019 (1.000-1.030); Urobilinogen Urine Negative (Negative); WBC Urine Automated >30 /hpf (0-5); pH Urine 5.5 (4.5-7.5)
[2021-08-29 20:17] LABS: Bilirubin Urine 1+ (Negative)
[2021-08-29] MEDS ORDERED: cefTRIAXone SODIUM 1,000 MG/50 ML BAG IV STA (20:47)
[2021-08-29] MEDS ORDERED: SODIUM CHLORIDE 0.9% 500 ML IV ONE (21:58)
[2021-08-29] MEDS ORDERED: ACETAMINOPHEN HOME PACK 500 MG TABLET PO ONE (23:53)
[2021-08-30] MEDS ORDERED: CONSULT PHARMACY STA (00:40)
--- NOTE | 2021-08-30 03:12 | History and Physical Report ---
DATE OF ADMISSION: 08/30/2021. CHIEF COMPLAINT: Fever, urinary tract infection. HISTORY OF PRESENT ILLNESS: This is an 81-year-old female with past medical history significant for oxygen-dependent COPD, prior COVID pneumonia in 11/2020 with recurrent episodes of pneumonia since then, history of chronic kidney disease, bronchiectasis, depression, dementia, abdominal aortic aneurysm, hypertension, hyperlipidemia, suspected asthma, peripheral vascular disease, was brought in by daughter because of new fever. The patient has dementia and as per daughter, she is sometimes oriented, sometimes not, sometimes even forgets the family members, but her appetite is okay and she eats fine. When she was in the hospital here last admission, she fell and has a pelvic fracture since then she is not ambulating. Any movement is causing pain and she is mostly moving her bowels and bladder in the diapers. Again, she developed fever today. The family was worried about UTI and brought her here. They also want her to be in rehab placement. Last admission, the patient also was treated for pneumonia with 5 days of doxycycline and cultures grew gram-negative bacteria. She was discharged on Augmentin and the plan was to follow up with chest x-ray in 4 to 6 weeks. She also has history of sputum culture growing Aspergillus fumigatus, but thought to be likely colonizer and voriconazole was stopped in the last admission. As per the family, the patient has a chronic cough. The patient denies any chest pain or abdominal pain or headache. No nausea, no vomiting. As per daughter, the patient was constipated. She has a small amount of bowel movement a couple of days ago, which was seemed to be loose. No burning micturition. The patient is currently resting comfortably, looks stable, saturating fine on 2 L oxygen, which she uses at home. Her COVID test is positive again, but as per daughter, she was not exposed to any of the COVID patients. ALLERGIES: No known drug allergies. PAST MEDICAL HISTORY: As mentioned above. PAST SURGICAL HISTORY: Status post AAA repair, status post abdominal laparotomy with Wound VAC placement, status post left hip open reduction and internal fixations. FAMILY HISTORY: Significant for diabetes and heart disease. SOCIAL HISTORY: Currently lives with her daughter. No alcohol use. No substance abuse. Unknown if ever smoked. REVIEW OF SYSTEMS: As per HPI. Could not get complete review of systems, as the patient has dementia. MEDICATIONS: The patient is on acetylcysteine 5 mL inhalation q.12 hours, albuterol/ipratropium 0.5/2.5 inhalation p.r.n., Augmentin 1 tablet p.o. b.i.d., aspirin 81 mg p.o. daily, vitamin D 50 mcg p.o. q.a.m., diclofenac sodium 1 tablet b.i.d. p.r.n., furosemide 20 mg p.o. daily p.r.n., Mucinex 1200 mg p.o. b.i.d., Advanced Probiotic 2 capsules p.o. daily, pravastatin 40 mg p.o. at bedtime, sertraline 150 mg p.o. q.p.m., sodium chloride 400 mg b.i.d., Anoro Ellipta 1 inhalation daily. PHYSICAL EXAMINATION: GENERAL: The patient is of moderate build, not in acute distress. VITAL SIGNS: Temperature 38.2, pulse 94, respiratory rate 19, blood pressure 101/60, oxygen 95% on 2 L. HEENT: Pupils equal, round and reactive to light. Oral mucosa moist. NECK: No JVD, no neck masses. CARDIOVASCULAR: S1 and S2 heard, regular rhythm. No murmur, no gallop. RESPIRATORY: Normal AP diameter. No accessory muscle use. No wheezing, no crackles. ABDOMEN: Soft, bowel sounds present, nontender, no distention. CENTRAL NERVOUS SYSTEM: Alert and awake. Speech is clear. No facial droop. Obeys simple commands. Moves extremities. EXTREMITIES: No edema, no erythema. LABORATORY DATA: WBC 12, hemoglobin 11.5, hematocrit 34.2, platelets 98. PT 11.4, INR 1.1, APTT 21.7. Venous blood gas, pH of 7.42, pCO2 of 35. Sodium 135, potassium 4, chloride 104, bicarbonate 23, BUN 26, creatinine 0.9, serum glucose 109. Lactate 1.2, calcium 8.6, magnesium 2.2, total bilirubin 0.4, AST 24, ALT 33, alkaline phosphatase 251. Troponin I 0.08. Procalcitonin 0.17. Urinalysis, +2 leukocyte esterase. SARS-CoV-2 PCR positive. IMAGING DATA: Chest x-ray: Cardiomegaly without acute process. The impression was chronic interstitial coarsening of right suprahilar pulmonary nodule redemonstrated. EKG: Sinus rhythm with marked sinus arrhythmia at a rate of 99. ASSESSMENT AND PLAN: This 81-year-old female who was brought in from home because of ongoing fever. 1. Fever could be from the re-infection with COVID or ongoing UTI. The patient is on Augmentin at home. We will start her with the cefepime, gentle fluids and monitor in the med tele. 2. COVID positive. The patient was diagnosed with COVID in November of 2020, status post treatment and since then had multiple admissions for pneumonia and for bronchitis. Last time when she was here with also pneumonia, treated with antibiotics of doxycycline and was discharged on Augmentin. She also has RSV infection last admission. Last admission COVID was negative, but today's COVID came back positive, possible re infection as the patient is not vaccinated. Her oxygen saturation is at baseline. Chest x-ray, no obvious findings. We will consult pulmonary to help with treatment. Plan to follow CRP, D-dimer in a.m. 3. History of COPD with emphysema. Continue home inhalers. 4. History of pulmonary nodules. Need to follow with her pulmonary. 5. History of sputum culture growing Aspergillus fumigatus, placed on voriconazole, which was stopped last admission as thought to be mostly colonized.. 6. History of right inferior pubic rami fracture, last admission. The patient is currently not ambulating, bedbound. PT, OT when stable .Family wants her to be transferred to rehabilitation. 7. Thrombocytopenia, platelets 90s. We will follow repeat labs. 8. Depression. Continue Zoloft. 9. Deep venous thrombosis prophylaxis, placed on Lovenox. DISPOSITION: Closely monitor in the med tele. PT/OT prior to discharge. Social service to help with discharge planning. CODE STATUS: Level 1 full code as per discussion with the daughter. Job ID: [id number] [facility]
[2021-08-30] MEDS ORDERED: POLYETHYLENE (MIRALAX) 17 GM PACK PO PRN (04:42)
[2021-08-30] MEDS ORDERED: SODIUM CHLORIDE 0.9% 1000ML 1,000 ML IV SCH (04:42)
[2021-08-30] MEDS ORDERED: FUROSEMIDE 20 MG TAB PO PRN (04:42)
[2021-08-30] MEDS ORDERED: NITROGLYCERIN SL 0.4 MG/TAB TAB SL PRN (04:42)
[2021-08-30] MEDS ORDERED: ONDANSETRON INJ 2 MG/ML 2 ML VIAL IV PRN (04:42)
[2021-08-30] MEDS ORDERED: DICLOFENAC SOD 1% GEL 100 GM TUBE EXT PRN (04:42)
[2021-08-30] MEDS ORDERED: CEFEPIME CONSULT ACTIVE PRN (04:54)
[2021-08-30 05:44] LABS: Hematocrit (blood only) 31.5 % (37-47); Hemoglobin 10.2 g/dL (12.0-16.0); Mean Corpuscular Hemoglobin 29.3 pg (25-34); Mean Corpuscular Hgb Conc 32.4 g/dL (32-36); Mean Corpuscular Volume 90.5 fL (80-100); RDW Coefficient of Variation 14.8 % (11.5-14.5); RDW Standard Deviation 48.6 fL (36.4-46.3); Red Blood Count 3.48 M/uL (4.2-5.4); White Blood Count 9.57 K/uL (4.8-10.8)
[2021-08-30 05:47] LABS: Mean Platelet Volume 10.8 fL (7.4-10.4); Platelet Count 84 K/uL (130-400)
[2021-08-30] MEDS ORDERED: CEFEPIME 2,000 MG in SYRINGE 0 ML IV SCH (06:00)
[2021-08-30 06:07] LABS: BUN Creatinine Ratio 31.2 (10-20); Calcium 8.5 mg/dl (8.5-10.1); Creatinine Clr Calc Pharmacy 36.7 ml/min; Est GFR (Non-African American) 63.8 ml/min; Magnesium 2.3 mg/dl (1.8-2.4); Potassium 3.8 mmol/L (3.5-5.1)
[2021-08-30 06:13] LABS: Basophils # (auto) 0.01 K/uL (0-0.2); Basophils % (auto) 0.1 %; Eosinophils # (auto) 0.07 K/uL (0-0.5); Eosinophils % (auto) 0.7 %; Immature Granulocytes # (auto) 0.03 K/uL (0.00-0.02); Immature Granulocytes % (auto) 0.3 %; Lymphocytes # (auto) 0.78 K/uL (1.2-3.4); Lymphocytes % (auto) 8.2 %; Monocytes # (auto) 0.39 K/uL (0.11-0.59); Monocytes % (auto) 4.1 %; Neutrophils # (auto) 8.29 K/uL (1.4-6.5); Neutrophils % (auto) 86.6 %
[2021-08-30 06:14] LABS: C Reactive Protein 11.6 mg/dl (0-0.29); Troponin I 0.082 ng/ml (0-0.045)
[2021-08-30 06:42] LABS: D Dimer 8570 ug/L FEU (0-500)
[2021-08-30] MEDS: ALBUTEROL 0.083% NEBU SOLN 3 ML VIAL INH SCH ×2 (07:32→19:50)
[2021-08-30] MEDS: ACETYLCYSTEINE 20% INHAL SOLN 4ML ***DISPENSED BY RESP. INH SCH ×2 (07:32→19:50)
[2021-08-30] MEDS: SODIUM CHLOR 7% 4 ML NEB NEB SCH ×2 (07:35→19:50)
[2021-08-30] MEDS: ENOXAPARIN INJ 40 MG/0.4 ML SYR SQ SCH (08:10)
[2021-08-30] MEDS: guaiFENesin 600 MG TABCR PO SCH ×2 (08:11→21:16)
[2021-08-30] MEDS: ASPIRIN 81 MG ECTAB PO SCH (08:12)
[2021-08-30] MEDS: ADVANCED PROBIOTIC 1250 MG CAPSULE PO SCH (08:12)
[2021-08-30] MEDS: CHOLECALCIFEROL 1,000 UNITS 25 MCG TAB PO SCH (08:12)
[2021-08-30] MEDS: UMECLIDINIUM/VILANTEROL 62.5/25MCG 7 PUFFS/INHALER INH SCH (08:12)
--- NOTE | 2021-08-30 12:21 | Electrocardiogram Report ---
Test Reason : Blood Pressure : / mmHG Vent. Rate : 099 BPM Atrial Rate : 099 BPM P-R Int : 168 ms QRS Dur : 096 ms QT Int : 344 ms P-R-T Axes : 094 -79 113 degrees QTc Int : 441 ms Sinus rhythm with frequent Premature atrial complexes Left axis deviation Nonspecific T wave abnormality Abnormal ECG When compared with ECG of 15-AUG-2021 05:43, Significant changes have occurred Confirmed by Yury Jeffrey ([id number]) on 08/30/2021 12:21:19 PM Referred By: REFERRED SELF Confirmed By:Yury Jeffrey
--- NOTE | 2021-08-30 15:29 | Pulmonology Progress Note ---
Date of Service August 30, 2021 Assessment & Plan (1) SARS-CoV-2 positive: (2) COPD (chronic obstructive pulmonary disease): COPD type: unspecified COPD Qualified Code(s): J44.9 - Chronic obstructive pulmonary disease, unspecified (3) History of pulmonary embolism: (4) Bronchiectasis: Bronchiectasis type: with acute exacerbation Qualified Code(s): J47.1 - Bronchiectasis with (acute) exacerbation Plan: Attending: Dr. Ni Impression: This is an 81-year-old female with previous history of COVID-19 pneumonia followed by recurrent pneumonia since November of this year. Patient also has a history of tobacco abuse and COPD. She is on chronic supplemental oxygen at 2 L/min via nasal cannula. Recommendations: 1. SARS-CoV-2 positive: Patient with positive serology for Covid with this admission. She has a history going back to November of previous Covid positivity. It is unclear if this is a delta variant or continuation of positive antibodies from previous infection. At this time patient is at baseline from respiratory standpoint. Chest x-ray shows no acute process. Patient is oxygenating well on 2 L/min via nasal cannula which is her home supplemental rate. Would not recommend any treatment including steroids and remdesivir unless patient's respiratory status should acutely change. No indication for pneumonia. No clear indication for antibiotics. We will continue to focus on negative fluid balance during the course of the hospital stay. 2. COPD: No evidence of acute exacerbation. Patient is on Anoro Ellipta (AC/LABA) at home. We will continue this while inpatient. Continue with Mucinex twice daily. Continue to monitor clinically. 3. Bronchiectasis: Continue Anoro Ellipta as listed above. Continue pulmonary toileting including flutter valve while inpatient. Patient appears to be chronically on acetylcysteine nebs. We would discontinue this and have the patient follow-up with Dr. Reynolds as an outpatient. No indication at this time for hypertonic saline nebulizer treatments either. We will continue with DuoNeb as needed, flutter valve, vest if needed. 4. History of pulmonary embolism: Patient not on anticoagulants at home. Would use chemical prophylaxis for Covid as this is a hypercoagulable viral disease. Ambulate as tolerated. Recommend Mike qamare/SCDs. 5. Disposition: Previous palliative care consult noted in the chart. From a pulmonary perspective as well as an overall health perspective palliative care and hospice was seem to be appropriate. Thank you for including us in the care of this patient. The pulmonary service will sign off at this time. Please feel free to reconsult as needed. Admission and Anticipated Discharge Date Admission Date: August 30, 2021 Supervising Physician Co-Signing Physician Notes Seen and examined. EMR reviewed. Imaging studies reviewed. Agree with assessment plan as noted by DIDIER. Patient's Covid test is likely a true positive and recommend isolation. No therapy is indicated as she does not have increased respiratory symptoms. As noted previously, the patient has enlarging pulmonary nodules highly suspicious for neoplastic process. She apparently has not pursued work-up in the past and palliative care had had meetings with the patient's family to address this. Would recommend chandra ddressing CODE STATUS. If the patient has advancing lung cancer, it would be highly consistent and reasonable to change her CODE STATUS to DO NOT RESUSCITATE DO NOT INTUBATE and focus on more symptomatic interventions. Review of her CT scan demonstrates trivial bronchiectasis and I do not think additional work-up or evaluation is required at this point time. Will sign off. Feel free to contact us with new or progressive pulmonary issues Subjective Attending: Dr. Ni This is an 81-year-old female with past medical history significant for oxygen- dependent COPD, prior COVID pneumonia in 11/2020 with recurrent episodes of pneumonia since then, history of chronic kidney disease, bronchiectasis, depression, dementia, abdominal aortic aneurysm, hypertension, hyperlipidemia, suspected asthma, peripheral vascular disease, was brought in by daughter because of new fever. I did not speak personally with the daughter but per reports, patient has progressive dementia and requires reorientation at times. Patient seen and examined in room 278 bed 2. She is awake and alert. She is unable to give me full history. She does give me a can visible review of systems. She denies any fever or chills. She is unsure if she had fever at home. Currently she has no shortness of breath. She does have supplemental oxygen in place at 2 L/min by nasal cannula. Review of records shows the patient has chronic supplemental oxygen use at home secondary to COPD. Patient does not appear to have any distress. She denies any chest pain or tightness. 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 She states that she did smoke in the past but has not smoked for 3 to 4 years. Patient does have a history of Covid infection going back to November of this year. Patient is unable to relate to me details related to Covid. Due to dementia, patient is unable to give me any other reliable information. Review of Systems Review of Systems: All systems reviewed & are unremarkable except as noted in Subjective Physical Exam Physical Exam: GENERAL : No acute distress. Pleasant EYES: No icterus, gaze conjugate NOSE: No evidence of epistaxis MOUTH: No lesions or candidiasis NECK: Supple LUNGS: Bibasilar crackles. No bronchospasm. No rhonchi. Poor inspirational effort. HEART: Regular, rate controlled ABDOMEN: Soft, NT, ND, BS Present EXTREMITIES: No LE edema, pedal pulses intact NEURO: Awake and alert with some disorientation. Requires reorientation. Results & Data Results [facility] ([facility]) Vital Signs (Past 12 Hours) Vital Signs Temp Pulse Pulse Resp BP BP Pulse Ox 08/30/21 12:37 37.0 C 82 18 107/65 97 08/30/21 08:16 08/30/21 08:13 36.6 C 78 18 113/74 96 08/30/21 07:35 80 18 97 08/30/21 06:16 74 08/30/21 05:03 36.9 C 83 18 112/73 98 08/30/21 04:50 78 08/30/21 04:42 36.9 C 83 18 112/73 98 08/30/21 03:40 73 18 97 08/30/21 03:30 73 19 108/64 92 Pulse Ox 08/30/21 12:37 08/30/21 08:16 96 08/30/21 08:13 08/30/21 07:35 08/30/21 06:16 08/30/21 05:03 08/30/21 04:50 08/30/21 04:42 08/30/21 03:40 08/30/21 03:30 Laboratory Results 08/30/21 05:20 08/30/21 05:20 Diagnostic Findings Chest X-Ray 08/29/21 17:36 XR chest 1V portable HISTORY: 81 years-old Female SEPSIS acute sepsis COMPARISON: Chest radiograph 08/22/2021, chest CT 08/15/2021. TECHNIQUE: Portable AP view the chest FINDINGS: Cardiac silhouette is mildly enlarged. Emphysema with chronic interstitial coarsening. No pneumothorax, large pleural effusion or overt pulmonary edema. Right suprahilar nodule is better seen on comparison chest CT. Mildly improved aeration of the right lung base. Ill-defined bibasilar densities are redemonstrated. Chronic right-sided rib fractures. Degenerative changes of the shoulders and spine. IMPRESSION: 1. Cardiomegaly without acute process. 2. Emphysema with chronic interstitial coarsening. 3. Right suprahilar pulmonary nodule redemonstrated and better characterized on the chest CT from 08/15/2021. ACT 112: Negative or not required by law. The above report was generated using voice recognition software. It may contain grammatical, syntax or spelling errors. Electronically signed by: Michael Zaldivar M.D. 08/29/2021 6:07 PM PG Care Time/CCT Total # of Minutes Spent Total Time Spent with Patient: Total time spent is greater than 50% in coordination of care (as documented) at patient's floor/unit and/or counseling patient: 45 minutes Coding Level of Care Code 50890 Subseq Hosp Care Lvl 3 Diagnoses SARS-CoV-2 positive U07.1 COPD (chronic obstructive pulmonary disease) J44.9 COPD type: unspecified COPD History of pulmonary embolism Z86.711 Bronchiectasis J47.1 Bronchiectasis type: with acute exacerbation Time Spent (min) 45
[2021-08-30] MEDS: CEFEPIME 2,000 MG in SYRINGE 0 ML IV SCH (19:30)
[2021-08-30] MEDS: PRAVASTATIN SOD 40 MG TAB PO SCH (21:19)
[2021-08-30] MEDS: SERTRALINE HCL 50 MG TABLET PO SCH (21:20)
[2021-08-30] MEDS: SERTRALINE HCL 100 MG TABLET PO SCH (21:21)
[2021-08-31] MEDS: ACETAMINOPHEN 325 MG TAB PO PRN ×2 (02:07→20:04)
[2021-08-31] MEDS: CEFEPIME 2,000 MG in SYRINGE 0 ML IV SCH ×2 (05:57→18:16)
[2021-08-31] MEDS: ACETYLCYSTEINE 20% INHAL SOLN 4ML ***DISPENSED BY RESP. INH SCH ×2 (07:18→19:46)
[2021-08-31] MEDS: ALBUTEROL 0.083% NEBU SOLN 3 ML VIAL INH SCH ×2 (07:18→19:46)
[2021-08-31] MEDS: SODIUM CHLOR 7% 4 ML NEB NEB SCH ×2 (07:19→19:46)
[2021-08-31] MEDS: ASPIRIN 81 MG ECTAB PO SCH (09:59)
[2021-08-31] MEDS: guaiFENesin 600 MG TABCR PO SCH ×2 (10:00→20:04)
[2021-08-31] MEDS: ENOXAPARIN INJ 40 MG/0.4 ML SYR SQ SCH (10:00)
[2021-08-31] MEDS: CHOLECALCIFEROL 1,000 UNITS 25 MCG TAB PO SCH (10:03)
[2021-08-31] MEDS: ADVANCED PROBIOTIC 1250 MG CAPSULE PO SCH (10:04)
[2021-08-31] MEDS: UMECLIDINIUM/VILANTEROL 62.5/25MCG 7 PUFFS/INHALER INH SCH (10:05)
--- NOTE | 2021-08-31 13:11 | Hospitalist Progress Note ---
Date of Service August 31, 2021 Assessment & Plan (1) SARS-CoV-2 positive: Plan: Presented with ongoing fever and cough without any significant shortness of breath Diagnosed to have Covid positive, with history of Covid positive in November of this year with a subsequent negative test after that. Appreciate pulmonary input and recommendation She has been saturating well with 0 to 2 L of oxygen She does not qualify for any Covid medications (2) Bronchiectasis: Plan: History of bronchiectasis with recent admission with pneumonia treated with Augmentin on discharge Though the chest x-ray did not show any lobar pneumonia and given the history of bronchiectasis and fever with mildly elevated white count intravenous cefepime was started She has been improving clinically with decreasing white count and no more fever We will change to oral Ceftin on discharge (3) COPD exacerbation: Plan: May have mild exacerbation Not in any shortness of breath at rest or any wheezing (4) S/P ORIF (open reduction internal fixation) fracture: Plan: Will need PT and OT evaluation (5) HTN (hypertension): Plan: Remains in the lower side with systolic 93 and diastolic 57 (6) Depression: (7) Dementia: (8) Weakness: Plan: We will get PT and OT evaluation prior to discharge DVT prophylaxis Subcu Lovenox CODE STATUS Full Admission and Anticipated Discharge Date Admission Date: August 30, 2021 Subjective 08/31/2021 The patient was seen and examined in medical telemetry unit and in the Covid room She complains to have nonspecific symptoms of abdominal discomfort but denies any shortness of breath at rest Remains generally weak but no focal weakness Has been saturating normally on 0 to 2 L of nasal cannula oxygen Review of Systems Review of Systems: All systems reviewed and are unremarkable except as noted below Respiratory: Minimal to none respiratory symptoms Gastrointestinal: Minimal abdominal discomfort without nausea vomiting Physical Exam Physical Exam: Lying in bed comfortably Constitutional: + ill appearing and + thin Eyes: PERRL, conjunctivae normal, anicteric sclerae ENMT: external ear and nose normal, oropharynx normal Neck: trachea midline, no thyromegaly Respiratory: + cough; no respiratory distress Auscultation: + diminished lung sounds and + crackles (Crackles bibasally) No respiratory distress at rest Cardiovascular: Rate/Rhythm: regular rate and regular rhythm; not tachycardic Heart Sounds: normal S1 and normal S2; no murmur Extremities: no edema Gastrointestinal (Abdomen): Inspection/Auscultation: normal bowel sounds; abdomen not distended Percussion/Palpation: abdomen soft; abdomen nontender Musculoskeletal: No acute arthritis involving any joint Skin: Has generalized bruising Neurologic: Alert and awake. Pleasantly confused. Generally weak and lethargic. No focal neuro deficit Results & Data Results & Data ([facility]) Vital Signs (Past 12 Hours) Vital Signs Temp Pulse Pulse Resp BP Pulse Ox 08/31/21 08:22 70 08/31/21 08:17 36.8 C 91 H 20 93/57 L 98 08/31/21 07:19 81 18 100 Diagnostic Findings Current Inpatient Medications Acetaminophen (Acetaminophen 325 Mg Tab) 650 mg PO Q4H PRN PRN Reason: Pain or Fever Stop: 09/29/21 04:41 Last Admin: 08/31/21 02:07 Dose: 650 mg Documented by: Acetylcysteine (Acetylcysteine 20% Inhal Soln 4ml Dispensed By Resp.) 5 ml INH Q12R ALEX Stop: 09/29/21 06:59 Last Admin: 08/31/21 07:18 Dose: 5 ml Documented by: Albuterol (Albuterol 0.083% Nebu Soln 3 Ml Vial) 2.5 mg INH BIDR ALEX Stop: 09/29/21 06:59 Last Admin: 08/31/21 07:18 Dose: 2.5 mg Documented by: Aspirin (Aspirin 81 Mg Ectab) 81 mg PO DAILY ALEX Stop: 09/29/21 08:59 Last Admin: 08/31/21 09:59 Dose: 81 mg Documented by: Diclofenac Sodium (Diclofenac Sod 1% Gel 100 Gm Tube) 1 gm EXT QID PRN PRN Reason: Pain Stop: 09/29/21 04:41 Enoxaparin Sodium (Enoxaparin Inj 40 Mg/0.4 Ml Syr) 40 mg SQ Q24H ALEX Stop: 09/29/21 08:59 Last Admin: 08/31/21 10:00 Dose: 40 mg Documented by: Furosemide (Furosemide 20 Mg Tab) 20 mg PO DAILY PRN PRN Reason: Fluid Retention Stop: 09/29/21 04:41 Guaifenesin (Guaifenesin 600 Mg Tabcr) 1,200 mg PO BID ALEX Stop: 09/29/21 08:59 Last Admin: 08/31/21 10:00 Dose: 1,200 mg Documented by: Cefepime HCl 2,000 mg/ Syringe 20 mls @ 5 mls/min IV Q12H ALEX; Protocol Stop: 09/09/21 17:59 Last Admin: 08/31/21 05:57 Dose: 5 mls/min Documented by: Lactobacillus Acidoph/Casei/Rhamnos (Advanced Probiotic 1250 Mg Capsule) 2 cap PO DAILY ALEX Stop: 09/29/21 08:59 Last Admin: 08/31/21 10:04 Dose: 2 cap Documented by: Miscellaneous Information (Cefepime Consult Active) 1 ea N/A UD PRN PRN Reason: Consult Stop: 09/29/21 04:53 Nitroglycerin (Nitroglycerin Sl 0.4 Mg/Tab Tab) 0.4 mg SL UD PRN PRN Reason: Chest Pain Stop: 09/29/21 04:41 Ondansetron HCl (Ondansetron Inj 2 Mg/Ml 2 Ml Vial) 4 mg IV Q6H PRN PRN Reason: Nausea Stop: 09/29/21 04:41 Polyethylene Glycol (Polyethylene (Miralax) 17 Gm Pack) 17 gm PO DAILY PRN PRN Reason: Constipation Stop: 09/29/21 04:41 Pravastatin Sodium (Pravastatin Sod 40 Mg Tab) 40 mg PO HS ALEX Stop: 09/29/21 20:59 Last Admin: 08/30/21 21:19 Dose: 40 mg Documented by: Sertraline HCl (Sertraline Hcl 100 Mg Tablet) 100 mg PO QPM ALEX Stop: 09/29/21 20:59 Last Admin: 08/30/21 21:21 Dose: 100 mg Documented by: Sertraline HCl (Sertraline Hcl 50 Mg Tablet) 50 mg PO QPM ALEX Stop: 09/29/21 20:59 Last Admin: 08/30/21 21:20 Dose: 50 mg Documented by: Sodium Chloride (Sodium Chlor 7% 4 Ml Neb) 4 ml NEB BIDR ALEX Stop: 09/29/21 06:59 Last Admin: 08/31/21 07:19 Dose: 4 ml Documented by: Umeclidinium/Vilanterol (Umeclidinium/Vilanterol 62.5/25mcg 7 Puffs/Inhaler) 1 puffs INH DAILY ALEX Stop: 09/29/21 08:59 Last Admin: 08/31/21 10:05 Dose: 1 puffs Documented by: Vitamin D (Cholecalciferol 1,000 Units 25 Mcg Tab) 2,000 units PO QAM ALEX Stop: 09/29/21 08:59 Last Admin: 08/31/21 10:03 Dose: 2,000 units Documented by: (1) Bronchiectasis Bronchiectasis type: with acute exacerbation Qualified Code(s): J47.1 - Bronchiectasis with (acute) exacerbation (2) HTN (hypertension) Hypertension type: essential hypertension Qualified Code(s): I10 - Essential (primary) hypertension (3) Depression Depression Type: major depressive disorder Major depression recurrence: unspecified whether recurrent Active/Remission status: remission status unspecified Qualified Code(s): F32.9 - Major depressive disorder, single episode, unspecified
[2021-08-31] MEDS: SERTRALINE HCL 100 MG TABLET PO SCH (20:04)
[2021-08-31] MEDS: PRAVASTATIN SOD 40 MG TAB PO SCH (20:04)
[2021-08-31] MEDS: SERTRALINE HCL 50 MG TABLET PO SCH (20:04)
[2021-09-01] MEDS: CEFEPIME 2,000 MG in SYRINGE 0 ML IV SCH (05:54)
[2021-09-01] MEDS: ACETYLCYSTEINE 20% INHAL SOLN 4ML ***DISPENSED BY RESP. INH SCH ×2 (08:02→19:24)
[2021-09-01] MEDS: ALBUTEROL 0.083% NEBU SOLN 3 ML VIAL INH SCH ×2 (08:02→19:24)
[2021-09-01] MEDS: SODIUM CHLOR 7% 4 ML NEB NEB SCH ×2 (08:05→19:25)
[2021-09-01] MEDS ORDERED: SODIUM CHLORIDE 0.9% 1000ML 1,000 ML IV SCH (09:00)
[2021-09-01] MEDS: UMECLIDINIUM/VILANTEROL 62.5/25MCG 7 PUFFS/INHALER INH SCH (09:08)
[2021-09-01] MEDS: ENOXAPARIN INJ 40 MG/0.4 ML SYR SQ SCH (09:09)
[2021-09-01] MEDS: ASPIRIN 81 MG ECTAB PO SCH (09:10)
[2021-09-01] MEDS: CHOLECALCIFEROL 1,000 UNITS 25 MCG TAB PO SCH (09:11)
[2021-09-01] MEDS: ADVANCED PROBIOTIC 1250 MG CAPSULE PO SCH (09:11)
[2021-09-01] MEDS: guaiFENesin 600 MG TABCR PO SCH ×2 (09:12→21:14)
--- NOTE | 2021-09-01 15:19 | Hospitalist Progress Note ---
Date of Service September 01, 2021 Assessment & Plan (1) SARS-CoV-2 positive: Plan: Presented with ongoing fever and cough without any significant shortness of breath Diagnosed to have Covid positive, with history of Covid positive in November of this year with a subsequent negative test after that. Appreciate pulmonary input and recommendation She has been saturating well with 0 to 2 L of oxygen She does not qualify for any Covid medications No symptoms of Covid infection (2) Bronchiectasis: Plan: History of bronchiectasis with recent admission with pneumonia treated with Augmentin on discharge Though the chest x-ray did not show any lobar pneumonia and given the history of bronchiectasis and fever with mildly elevated white count intravenous cefepime was started She has been improving clinically with decreasing white count and no more fever We will change to oral Ceftin on discharge No fever and no chills and denies any cough (3) COPD exacerbation: Plan: May have mild exacerbation Not in any shortness of breath at rest or any wheezing (4) S/P ORIF (open reduction internal fixation) fracture: Plan: Will need PT and OT evaluation Awaiting placement (5) HTN (hypertension): Plan: Remains in the lower side with systolic 93 and diastolic 57 (6) Depression: (7) Dementia: Plan: Has dementia Pleasantly confused without any acute confusion (8) Weakness: Plan: We will get PT and OT evaluation prior to discharge DVT prophylaxis Subcu Lovenox CODE STATUS Full Admission and Anticipated Discharge Date Admission Date: August 30, 2021 Subjective 08/31/2021 The patient was seen and examined in medical telemetry unit and in the Covid room She complains to have nonspecific symptoms of abdominal discomfort but denies any shortness of breath at rest Remains generally weak but no focal weakness Has been saturating normally on 0 to 2 L of nasal cannula oxygen 09/01/2021 The patient was seen and examined in medical telemetry unit and in the Covid room She remains pleasantly confused but otherwise asymptomatic She was noted to have low blood pressure in the morning and given intravenous fluid but she could not finish it Was advised to drink more fluid Review of Systems Review of Systems: All systems reviewed and are unremarkable except as noted below Respiratory: Minimal to none respiratory symptoms Gastrointestinal: Minimal abdominal discomfort without nausea vomiting Physical Exam Physical Exam: Lying in bed comfortably Constitutional: + ill appearing and + thin Eyes: PERRL, conjunctivae normal, anicteric sclerae ENMT: external ear and nose normal, oropharynx normal Neck: trachea midline, no thyromegaly Respiratory: + cough; no respiratory distress Auscultation: + diminished lung sounds and + crackles (Crackles bibasally) Cardiovascular: Rate/Rhythm: regular rate and regular rhythm; not tachycardic Heart Sounds: normal S1 and normal S2; no murmur Extremities: no edema Gastrointestinal (Abdomen): Inspection/Auscultation: normal bowel sounds; abdomen not distended Percussion/Palpation: abdomen soft; abdomen nontender Musculoskeletal: Acute arthritis in any joint Neurologic: Alert and awake. Pleasantly confused Results & Data Results & Data ([facility]) Vital Signs (Past 12 Hours) Vital Signs Temp Pulse Pulse Resp BP Pulse Ox 09/01/21 12:00 37.3 C 80 16 96/65 L 100 09/01/21 11:20 99 09/01/21 08:06 91 H 18 92 09/01/21 08:00 37.2 C 88 20 87/47 L 96 09/01/21 06:33 76 Medications Administered Current Inpatient Medications Acetaminophen (Acetaminophen 325 Mg Tab) 650 mg PO Q4H PRN PRN Reason: Pain or Fever Stop: 09/29/21 04:41 Last Admin: 08/31/21 20:04 Dose: 650 mg Documented by: Acetylcysteine (Acetylcysteine 20% Inhal Soln 4ml Dispensed By Resp.) 5 ml INH Q12R ALEX Stop: 09/29/21 06:59 Last Admin: 09/01/21 08:02 Dose: 5 ml Documented by: Albuterol (Albuterol 0.083% Nebu Soln 3 Ml Vial) 2.5 mg INH BIDR ALEX Stop: 09/29/21 06:59 Last Admin: 09/01/21 08:02 Dose: 2.5 mg Documented by: Aspirin (Aspirin 81 Mg Ectab) 81 mg PO DAILY ALEX Stop: 09/29/21 08:59 Last Admin: 09/01/21 09:10 Dose: 81 mg Documented by: Cefuroxime Axetil (Cefuroxime Axetil 500 Mg Tab) 500 mg PO BIDM ALEX Stop: 09/08/21 16:59 Diclofenac Sodium (Diclofenac Sod 1% Gel 100 Gm Tube) 1 gm EXT QID PRN PRN Reason: Pain Stop: 09/29/21 04:41 Enoxaparin Sodium (Enoxaparin Inj 40 Mg/0.4 Ml Syr) 40 mg SQ Q24H ALEX Stop: 09/29/21 08:59 Last Admin: 09/01/21 09:09 Dose: 40 mg Documented by: Furosemide (Furosemide 20 Mg Tab) 20 mg PO DAILY PRN PRN Reason: Fluid Retention Stop: 09/29/21 04:41 Guaifenesin (Guaifenesin 600 Mg Tabcr) 1,200 mg PO BID ALEX Stop: 09/29/21 08:59 Last Admin: 09/01/21 09:12 Dose: 1,200 mg Documented by: Sodium Chloride (Nss 1000ml) 1,000 mls @ 125 mls/hr IV .Q8H ALEX Stop: 09/01/21 16:59 Last Admin: 09/01/21 11:06 Dose: 125 mls/hr Documented by: Lactobacillus Acidoph/Casei/Rhamnos (Advanced Probiotic 1250 Mg Capsule) 2 cap PO DAILY ALEX Stop: 09/29/21 08:59 Last Admin: 09/01/21 09:11 Dose: 2 cap Documented by: Nitroglycerin (Nitroglycerin Sl 0.4 Mg/Tab Tab) 0.4 mg SL UD PRN PRN Reason: Chest Pain Stop: 09/29/21 04:41 Ondansetron HCl (Ondansetron Inj 2 Mg/Ml 2 Ml Vial) 4 mg IV Q6H PRN PRN Reason: Nausea Stop: 09/29/21 04:41 Polyethylene Glycol (Polyethylene (Miralax) 17 Gm Pack) 17 gm PO DAILY PRN PRN Reason: Constipation Stop: 09/29/21 04:41 Pravastatin Sodium (Pravastatin Sod 40 Mg Tab) 40 mg PO HS ALEX Stop: 09/29/21 20:59 Last Admin: 08/31/21 20:04 Dose: 40 mg Documented by: Sertraline HCl (Sertraline Hcl 100 Mg Tablet) 100 mg PO QPM ALEX Stop: 09/29/21 20:59 Last Admin: 08/31/21 20:04 Dose: 100 mg Documented by: Sertraline HCl (Sertraline Hcl 50 Mg Tablet) 50 mg PO QPM ALEX Stop: 09/29/21 20:59 Last Admin: 08/31/21 20:04 Dose: 50 mg Documented by: Sodium Chloride (Sodium Chlor 7% 4 Ml Neb) 4 ml NEB BIDR [facility] Stop: 09/29/21 06:59 Last Admin: 09/01/21 08:05 Dose: 4 ml Documented by: Umeclidinium/Vilanterol (Umeclidinium/Vilanterol 62.5/25mcg 7 Puffs/Inhaler) 1 puffs INH DAILY [facility] Stop: 09/29/21 08:59 Last Admin: 09/01/21 09:08 Dose: 1 puffs Documented by: Vitamin D (Cholecalciferol 1,000 Units 25 Mcg Tab) 2,000 units PO QAM [facility] Stop: 09/29/21 08:59 Last Admin: 09/01/21 09:11 Dose: 2,000 units Documented by: (1) Bronchiectasis Bronchiectasis type: with acute exacerbation Qualified Code(s): J47.1 - Bronchiectasis with (acute) exacerbation (2) HTN (hypertension) Hypertension type: essential hypertension Qualified Code(s): I10 - Essential (primary) hypertension (3) Depression Depression Type: major depressive disorder Major depression recurrence: unspecified whether recurrent Active/Remission status: remission status unspecified Qualified Code(s): F32.9 - Major depressive disorder, single episode, unspecified
[2021-09-01] MEDS: cefUROXime axetil 500 MG TAB PO SCH (16:53)
[2021-09-01] MEDS: SERTRALINE HCL 100 MG TABLET PO SCH (21:14)
[2021-09-01] MEDS: SERTRALINE HCL 50 MG TABLET PO SCH (21:14)
[2021-09-01] MEDS: PRAVASTATIN SOD 40 MG TAB PO SCH (21:14)
[2021-09-02 06:57] LABS: Basophils # (auto) 0.01 K/uL (0-0.2); Basophils % (auto) 0.1 %; Eosinophils # (auto) 0.13 K/uL (0-0.5); Eosinophils % (auto) 1.8 %; Hematocrit (blood only) 25.8 % (37-47); Hemoglobin 8.5 g/dL (12.0-16.0); Immature Granulocytes # (auto) 0.02 K/uL (0.00-0.02); Immature Granulocytes % (auto) 0.3 %; Lymphocytes # (auto) 0.86 K/uL (1.2-3.4); Mean Corpuscular Hemoglobin 29.6 pg (25-34); Mean Corpuscular Hgb Conc 32.9 g/dL (32-36); Mean Corpuscular Volume 89.9 fL (80-100); Mean Platelet Volume 10.6 fL (7.4-10.4); Monocytes # (auto) 0.35 K/uL (0.11-0.59); Monocytes % (auto) 4.9 %; Neutrophils # (auto) 5.82 K/uL (1.4-6.5); Neutrophils % (auto) 80.9 %; Platelet Count 119 K/uL (130-400); RDW Coefficient of Variation 14.9 % (11.5-14.5); RDW Standard Deviation 48.9 fL (36.4-46.3); Red Blood Count 2.87 M/uL (4.2-5.4); White Blood Count 7.19 K/uL (4.8-10.8)
[2021-09-02 07:27] LABS: BUN Creatinine Ratio 18.9 (10-20); Calcium 8.4 mg/dl (8.5-10.1); Creatinine Clr Calc Pharmacy 39.4 ml/min; Est GFR (African American) 80.8 ml/min; Est GFR (Non-African American) 69.7 ml/min; Magnesium 2.1 mg/dl (1.8-2.4); Phosphorus 2.3 mg/dl (2.5-4.9); Potassium 3.7 mmol/L (3.5-5.1)
[2021-09-02] MEDS: cefUROXime axetil 500 MG TAB PO SCH ×2 (07:42→16:04)
[2021-09-02] MEDS: ALBUTEROL 0.083% NEBU SOLN 3 ML VIAL INH SCH ×2 (07:53→20:44)
[2021-09-02] MEDS: ACETYLCYSTEINE 20% INHAL SOLN 4ML ***DISPENSED BY RESP. INH SCH ×2 (07:53→20:44)
[2021-09-02] MEDS: SODIUM CHLOR 7% 4 ML NEB NEB SCH ×2 (07:54→20:45)
[2021-09-02] MEDS: ENOXAPARIN INJ 40 MG/0.4 ML SYR SQ SCH (08:09)
[2021-09-02] MEDS: ADVANCED PROBIOTIC 1250 MG CAPSULE PO SCH (08:09)
[2021-09-02] MEDS: CHOLECALCIFEROL 1,000 UNITS 25 MCG TAB PO SCH (08:10)
[2021-09-02] MEDS: guaiFENesin 600 MG TABCR PO SCH ×2 (08:10→21:56)
[2021-09-02] MEDS: ASPIRIN 81 MG ECTAB PO SCH (08:10)
[2021-09-02] MEDS: UMECLIDINIUM/VILANTEROL 62.5/25MCG 7 PUFFS/INHALER INH SCH (08:11)
[2021-09-02] MEDS ORDERED: POTASSIUM PHOS 3 MMOL/1 ML INFUSION IV STA (09:38)
[2021-09-02] MEDS ORDERED: POTASSIUM PHOSPHATE 21 MMOL in SODIUM CHLORIDE 0.9% 500 ML IV ONE (10:00)
--- NOTE | 2021-09-02 14:18 | Hospitalist Progress Note ---
Date of Service September 02, 2021 Assessment & Plan (1) SARS-CoV-2 positive: Plan: Presented with ongoing fever and cough without any significant shortness of breath Diagnosed to have Covid positive, with history of Covid positive in November of this year with a subsequent negative test after that. Appreciate pulmonary input and recommendation She has been saturating well with 0 to 2 L of oxygen She does not qualify for any Covid medications Totally asymptomatic COVID-19 (2) Bronchiectasis: Plan: History of bronchiectasis with recent admission with pneumonia treated with Augmentin on discharge Though the chest x-ray did not show any lobar pneumonia and given the history of bronchiectasis and fever with mildly elevated white count intravenous cefepime was started She has been improving clinically with decreasing white count and no more fever We will change to oral Ceftin on discharge No fever and no chills and denies any cough Denies any shortness of breath (3) COPD exacerbation: Plan: May have mild exacerbation Not in any shortness of breath at rest or any wheezing (4) S/P ORIF (open reduction internal fixation) fracture: Plan: Will need PT and OT evaluation Awaiting placement (5) HTN (hypertension): Plan: Remains in the lower side with systolic 93 and diastolic 57 Blood pressure remains low or normal at 110/64 (6) Depression: (7) Dementia: Plan: Has dementia Pleasantly confused without any acute confusion (8) Weakness: Plan: We will get PT and OT evaluation prior to discharge DVT prophylaxis Subcu Lovenox CODE STATUS Full Admission and Anticipated Discharge Date Admission Date: August 30, 2021 Subjective 08/31/2021 The patient was seen and examined in medical telemetry unit and in the Covid room She complains to have nonspecific symptoms of abdominal discomfort but denies any shortness of breath at rest Remains generally weak but no focal weakness Has been saturating normally on 0 to 2 L of nasal cannula oxygen 09/01/2021 The patient was seen and examined in medical telemetry unit and in the Covid room She remains pleasantly confused but otherwise asymptomatic She was noted to have low blood pressure in the morning and given intravenous fluid but she could not finish it Was advised to drink more fluid 09/02/2021 The patient was seen and examined in medical telemetry unit and in the Covid room She remained stable and denies any symptoms Pleasantly confused and generally weak Review of Systems Review of Systems: All systems reviewed and are unremarkable except as noted below Respiratory: Minimal to none respiratory symptoms Gastrointestinal: Minimal abdominal discomfort without nausea vomiting Physical Exam Physical Exam: Lying in bed comfortably Constitutional: + thin; not ill appearing Eyes: PERRL, conjunctivae normal, anicteric sclerae ENMT: external ear and nose normal, oropharynx normal Neck: trachea midline, no thyromegaly Respiratory: + cough; no respiratory distress Auscultation: + diminished lung sounds and + crackles (Crackles bibasally) Cardiovascular: Rate/Rhythm: regular rate and regular rhythm; not tachycardic Heart Sounds: normal S1 and normal S2; no murmur Extremities: no edema Gastrointestinal (Abdomen): Inspection/Auscultation: normal bowel sounds; abdomen not distended Percussion/Palpation: abdomen soft; abdomen nontender Musculoskeletal: No acute arthritis in any joint Neurologic: Alert, awake and oriented x3 Results & Data Results & Data ([facility]) Vital Signs (Past 12 Hours) Vital Signs Temp Pulse Pulse Resp BP BP Pulse Ox 09/02/21 12:00 37.4 C 93 H 18 110/64 95 09/02/21 08:02 87 22 95 09/02/21 08:00 37.4 C 90 17 94/64 L 95 09/02/21 07:54 87 20 96 09/02/21 02:41 36.9 C 79 16 123/67 95 Laboratory Results Short CBC 09/02/21 Range/Units 05:56 WBC 7.19 (4.8-10.8) K/uL Hgb 8.5 L (12.0-16.0) g/dL Hct 25.8 L (37-47) % Plt Count 119 L (130-400) K/uL BMP 09/02/21 05:56 Sodium 135 L Potassium 3.7 Chloride 108 H Carbon Dioxide 21 BUN 15 Creatinine 0.79 Glucose 90 Calcium 8.4 L Medications Administered Current Inpatient Medications Acetaminophen (Acetaminophen 325 Mg Tab) 650 mg PO Q4H PRN PRN Reason: Pain or Fever Stop: 09/29/21 04:41 Last Admin: 08/31/21 20:04 Dose: 650 mg Documented by: Acetylcysteine (Acetylcysteine 20% Inhal Soln 4ml Dispensed By Resp.) 5 ml INH Q12R ALEX Stop: 09/29/21 06:59 Last Admin: 09/02/21 07:53 Dose: 5 ml Documented by: Albuterol (Albuterol 0.083% Nebu Soln 3 Ml Vial) 2.5 mg INH BIDR ALEX Stop: 09/29/21 06:59 Last Admin: 09/02/21 07:53 Dose: 2.5 mg Documented by: Aspirin (Aspirin 81 Mg Ectab) 81 mg PO DAILY ALEX Stop: 09/29/21 08:59 Last Admin: 09/02/21 08:10 Dose: 81 mg Documented by: Cefuroxime Axetil (Cefuroxime Axetil 500 Mg Tab) 500 mg PO BIDM ALEX Stop: 09/08/21 16:59 Last Admin: 09/02/21 07:42 Dose: 500 mg Documented by: Diclofenac Sodium (Diclofenac Sod 1% Gel 100 Gm Tube) 1 gm EXT QID PRN PRN Reason: Pain Stop: 09/29/21 04:41 Enoxaparin Sodium (Enoxaparin Inj 40 Mg/0.4 Ml Syr) 40 mg SQ Q24H ALEX Stop: 09/29/21 08:59 Last Admin: 09/02/21 08:09 Dose: 40 mg Documented by: Furosemide (Furosemide 20 Mg Tab) 20 mg PO DAILY PRN PRN Reason: Fluid Retention Stop: 09/29/21 04:41 Guaifenesin (Guaifenesin 600 Mg Tabcr) 1,200 mg PO BID ALEX Stop: 09/29/21 08:59 Last Admin: 09/02/21 08:10 Dose: 1,200 mg Documented by: Potassium Phosphate 21 mmol/ (Sodium Chloride) 507 mls @ 88 mls/hr IV ONE ONE Stop: 09/02/21 15:45 Last Admin: 09/02/21 10:19 Dose: 88 mls/hr Documented by: Lactobacillus Acidoph/Casei/Rhamnos (Advanced Probiotic 1250 Mg Capsule) 2 cap PO DAILY ALEX Stop: 09/29/21 08:59 Last Admin: 09/02/21 08:09 Dose: 2 cap Documented by: Nitroglycerin (Nitroglycerin Sl 0.4 Mg/Tab Tab) 0.4 mg SL UD PRN PRN Reason: Chest Pain Stop: 09/29/21 04:41 Ondansetron HCl (Ondansetron Inj 2 Mg/Ml 2 Ml Vial) 4 mg IV Q6H PRN PRN Reason: Nausea Stop: 09/29/21 04:41 Polyethylene Glycol (Polyethylene (Miralax) 17 Gm Pack) 17 gm PO DAILY PRN PRN Reason: Constipation Stop: 09/29/21 04:41 Pravastatin Sodium (Pravastatin Sod 40 Mg Tab) 40 mg PO HS ALEX Stop: 09/29/21 20:59 Last Admin: 09/01/21 21:14 Dose: 40 mg Documented by: Sertraline HCl (Sertraline Hcl 100 Mg Tablet) 100 mg PO QPM ALEX Stop: 09/29/21 20:59 Last Admin: 09/01/21 21:14 Dose: 100 mg Documented by: Sertraline HCl (Sertraline Hcl 50 Mg Tablet) 50 mg PO QPM ALEX Stop: 09/29/21 20:59 Last Admin: 09/01/21 21:14 Dose: 50 mg Documented by: Sodium Chloride (Sodium Chlor 7% 4 Ml Neb) 4 ml NEB BIDR ALEX Stop: 09/29/21 06:59 Last Admin: 09/02/21 07:54 Dose: 4 ml Documented by: Umeclidinium/Vilanterol (Umeclidinium/Vilanterol 62.5/25mcg 7 Puffs/Inhaler) 1 puffs INH DAILY ALEX Stop: 09/29/21 08:59 Last Admin: 09/02/21 08:11 Dose: 1 puffs Documented by: Vitamin D (Cholecalciferol 1,000 Units 25 Mcg Tab) 2,000 units PO QAM ALEX Stop: 09/29/21 08:59 Last Admin: 09/02/21 08:10 Dose: 2,000 units Documented by: Vitamin D (Cholecalciferol 400 Units 10 Mcg Tab) 2,000 units PO QAM ALEX Stop: 09/03/21 09:01 (1) Bronchiectasis Bronchiectasis type: with acute exacerbation Qualified Code(s): J47.1 - Bronchiectasis with (acute) exacerbation (2) HTN (hypertension) Hypertension type: essential hypertension Qualified Code(s): I10 - Essential (primary) hypertension (3) Depression Depression Type: major depressive disorder Major depression recurrence: unspecified whether recurrent Active/Remission status: remission status unspecified Qualified Code(s): F32.9 - Major depressive disorder, single episode, unspecified
[2021-09-02] MEDS: PRAVASTATIN SOD 40 MG TAB PO SCH (21:55)
[2021-09-02] MEDS: SERTRALINE HCL 100 MG TABLET PO SCH (21:56)
[2021-09-02] MEDS: SERTRALINE HCL 50 MG TABLET PO SCH (21:56)
[2021-09-03] MEDS: ACETAMINOPHEN 325 MG TAB PO PRN (03:49)
[2021-09-03] MEDS: ALBUTEROL 0.083% NEBU SOLN 3 ML VIAL INH SCH ×2 (07:27→19:57)
[2021-09-03] MEDS: SODIUM CHLOR 7% 4 ML NEB NEB SCH ×2 (07:28→19:58)
[2021-09-03] MEDS: ACETYLCYSTEINE 20% INHAL SOLN 4ML ***DISPENSED BY RESP. INH SCH ×2 (07:28→19:57)
[2021-09-03] MEDS: ASPIRIN 81 MG ECTAB PO SCH (08:11)
[2021-09-03] MEDS: ENOXAPARIN INJ 40 MG/0.4 ML SYR SQ SCH (08:11)
[2021-09-03] MEDS: ADVANCED PROBIOTIC 1250 MG CAPSULE PO SCH (08:11)
[2021-09-03] MEDS: cefUROXime axetil 500 MG TAB PO SCH ×2 (08:11→17:10)
[2021-09-03] MEDS: guaiFENesin 600 MG TABCR PO SCH ×2 (08:11→21:08)
[2021-09-03] MEDS: UMECLIDINIUM/VILANTEROL 62.5/25MCG 7 PUFFS/INHALER INH SCH (08:12)
[2021-09-03] MEDS ORDERED: CHOLECALCIFEROL 400 UNITS 10 MCG TAB PO SCH (09:00)
[2021-09-03] MEDS: SODIUM CHLORIDE 0.9% 1000ML 1,000 ML IV SCH (13:01)
--- NOTE | 2021-09-03 15:37 | Hospitalist Progress Note ---
Date of Service September 03, 2021 Assessment & Plan (1) SARS-CoV-2 positive: Plan: Presented with ongoing fever and cough without any significant shortness of breath Diagnosed to have Covid positive, with history of Covid positive in November of this year with a subsequent negative test after that. Appreciate pulmonary input and recommendation She has been saturating well with 0 to 2 L of oxygen She does not qualify for any Covid medications Totally asymptomatic COVID-19 Has been requiring 2 L of oxygen at times (2) Bronchiectasis: Plan: History of bronchiectasis with recent admission with pneumonia treated with Augmentin on discharge Though the chest x-ray did not show any lobar pneumonia and given the history of bronchiectasis and fever with mildly elevated white count intravenous cefepime was started She has been improving clinically with decreasing white count and no more fever We will change to oral Ceftin on discharge No fever and no chills and denies any cough Denies any shortness of breath at rest and no cough and/or phlegm (3) COPD exacerbation: Plan: May have mild exacerbation Not in any shortness of breath at rest or any wheezing (4) S/P ORIF (open reduction internal fixation) fracture: Plan: Will need PT and OT evaluation Awaiting placement (5) HTN (hypertension): Plan: Remains in the lower side with systolic 93 and diastolic 57 Blood pressure remains low or normal at 110/64 Has not been drinking enough We will give small amount of intravenous fluid (6) Depression: Plan: No acute confusion and delirium (7) Dementia: Plan: Has dementia Pleasantly confused without any acute confusion (8) Weakness: Plan: We will get PT and OT evaluation prior to discharge DVT prophylaxis Subcu Lovenox CODE STATUS Full Admission and Anticipated Discharge Date Admission Date: August 30, 2021 Subjective 08/31/2021 The patient was seen and examined in medical telemetry unit and in the Covid room She complains to have nonspecific symptoms of abdominal discomfort but denies any shortness of breath at rest Remains generally weak but no focal weakness Has been saturating normally on 0 to 2 L of nasal cannula oxygen 09/01/2021 The patient was seen and examined in medical telemetry unit and in the Covid room She remains pleasantly confused but otherwise asymptomatic She was noted to have low blood pressure in the morning and given intravenous fluid but she could not finish it Was advised to drink more fluid 09/02/2021 The patient was seen and examined in medical telemetry unit and in the Covid room She remained stable and denies any symptoms Pleasantly confused and generally weak 09/03/2021 The patient was seen and examined in medical telemetry unit in the Covid room She remained stable but little drowsy today Remains pleasantly confused without any acute distress Review of Systems Review of Systems: All systems reviewed and are unremarkable except as noted below Respiratory: Minimal to none respiratory symptoms Gastrointestinal: Minimal abdominal discomfort without nausea vomiting Physical Exam Physical Exam: Lying in bed comfortably Constitutional: + thin; not ill appearing Eyes: PERRL, conjunctivae normal, anicteric sclerae ENMT: external ear and nose normal, oropharynx normal Neck: trachea midline, no thyromegaly Respiratory: + cough; no respiratory distress Auscultation: + diminished lung sounds and + crackles (Crackles bibasally) Cardiovascular: Rate/Rhythm: regular rate and regular rhythm; not tachycardic Heart Sounds: normal S1 and normal S2; no murmur Extremities: no edema Gastrointestinal (Abdomen): Inspection/Auscultation: normal bowel sounds; abdomen not distended Percussion/Palpation: abdomen soft; abdomen nontender Musculoskeletal: No acute arthritis in any joint Neurologic: Alert and awake. Generally weak Results & Data Results & Data ([facility]) Vital Signs (Past 12 Hours) Vital Signs Temp Pulse Pulse Resp BP BP Pulse Ox 09/03/21 15:01 36.7 C 88 20 102/68 100 09/03/21 13:12 36.5 C 68 18 104/62 100 09/03/21 07:48 36.7 C 99 H 18 102/60 100 09/03/21 07:30 102 H 16 98 09/03/21 07:15 84 09/03/21 04:40 37.4 C 09/03/21 03:48 37.8 C H 94 H 18 139/57 L 98 Medications Administered Current Inpatient Medications Acetaminophen (Acetaminophen 325 Mg Tab) 650 mg PO Q4H PRN PRN Reason: Pain or Fever Stop: 09/29/21 04:41 Last Admin: 09/03/21 03:49 Dose: 650 mg Documented by: Acetylcysteine (Acetylcysteine 20% Inhal Soln 4ml Dispensed By Resp.) 5 ml INH Q12R ALEX Stop: 09/29/21 06:59 Last Admin: 09/03/21 07:28 Dose: 5 ml Documented by: Albuterol (Albuterol 0.083% Nebu Soln 3 Ml Vial) 2.5 mg INH BIDR ALEX Stop: 09/29/21 06:59 Last Admin: 09/03/21 07:27 Dose: 2.5 mg Documented by: Aspirin (Aspirin 81 Mg Ectab) 81 mg PO DAILY ALEX Stop: 09/29/21 08:59 Last Admin: 09/03/21 08:11 Dose: 81 mg Documented by: Cefuroxime Axetil (Cefuroxime Axetil 500 Mg Tab) 500 mg PO BIDM ALEX Stop: 09/08/21 16:59 Last Admin: 09/03/21 08:11 Dose: 500 mg Documented by: Diclofenac Sodium (Diclofenac Sod 1% Gel 100 Gm Tube) 1 gm EXT QID PRN PRN Reason: Pain Stop: 09/29/21 04:41 Enoxaparin Sodium (Enoxaparin Inj 40 Mg/0.4 Ml Syr) 40 mg SQ Q24H ALEX Stop: 09/29/21 08:59 Last Admin: 09/03/21 08:11 Dose: 40 mg Documented by: Furosemide (Furosemide 20 Mg Tab) 20 mg PO DAILY PRN PRN Reason: Fluid Retention Stop: 09/29/21 04:41 Guaifenesin (Guaifenesin 600 Mg Tabcr) 1,200 mg PO BID ALEX Stop: 09/29/21 08:59 Last Admin: 09/03/21 08:11 Dose: 1,200 mg Documented by: Sodium Chloride (Nss 1000ml) 1,000 mls @ 80 mls/hr IV .[id number] ALEX Stop: 10/03/21 12:59 Last Admin: 09/03/21 13:01 Dose: 80 mls/hr Documented by: Lactobacillus Acidoph/Casei/Rhamnos (Advanced Probiotic 1250 Mg Capsule) 2 cap PO DAILY ALEX Stop: 09/29/21 08:59 Last Admin: 09/03/21 08:11 Dose: 2 cap Documented by: Nitroglycerin (Nitroglycerin Sl 0.4 Mg/Tab Tab) 0.4 mg SL UD PRN PRN Reason: Chest Pain Stop: 09/29/21 04:41 Ondansetron HCl (Ondansetron Inj 2 Mg/Ml 2 Ml Vial) 4 mg IV Q6H PRN PRN Reason: Nausea Stop: 09/29/21 04:41 Polyethylene Glycol (Polyethylene (Miralax) 17 Gm Pack) 17 gm PO DAILY PRN PRN Reason: Constipation Stop: 09/29/21 04:41 Pravastatin Sodium (Pravastatin Sod 40 Mg Tab) 40 mg PO HS ALEX Stop: 09/29/21 20:59 Last Admin: 09/02/21 21:55 Dose: 40 mg Documented by: Sertraline HCl (Sertraline Hcl 100 Mg Tablet) 100 mg PO QPM ALEX Stop: 09/29/21 20:59 Last Admin: 09/02/21 21:56 Dose: 100 mg Documented by: Sertraline HCl (Sertraline Hcl 50 Mg Tablet) 50 mg PO QPM ALEX Stop: 09/29/21 20:59 Last Admin: 09/02/21 21:56 Dose: 50 mg Documented by: Sodium Chloride (Sodium Chlor 7% 4 Ml Neb) 4 ml NEB BIDR ALEX Stop: 09/29/21 06:59 Last Admin: 09/03/21 07:28 Dose: 4 ml Documented by: Umeclidinium/Vilanterol (Umeclidinium/Vilanterol 62.5/25mcg 7 Puffs/Inhaler) 1 puffs INH DAILY ALEX Stop: 09/29/21 08:59 Last Admin: 09/03/21 08:12 Dose: 1 puffs Documented by: Vitamin D (Cholecalciferol 1,000 Units 25 Mcg Tab) 2,000 units PO QAM ALEX Stop: 09/29/21 08:59 Last Admin: 09/02/21 08:10 Dose: 2,000 units Documented by: (1) Bronchiectasis Bronchiectasis type: with acute exacerbation Qualified Code(s): J47.1 - Bronchiectasis with (acute) exacerbation (2) HTN (hypertension) Hypertension type: essential hypertension Qualified Code(s): I10 - Essential (primary) hypertension (3) Depression Depression Type: major depressive disorder Major depression recurrence: unspecified whether recurrent Active/Remission status: remission status unspecified Qualified Code(s): F32.9 - Major depressive disorder, single episode, unspecified
[2021-09-03] MEDS: SERTRALINE HCL 50 MG TABLET PO SCH (21:08)
[2021-09-03] MEDS: PRAVASTATIN SOD 40 MG TAB PO SCH (21:08)
[2021-09-03] MEDS: SERTRALINE HCL 100 MG TABLET PO SCH (22:22)
[2021-09-04] MEDS: SODIUM CHLORIDE 0.9% 1000ML 1,000 ML IV SCH (05:15)
[2021-09-04 06:49] LABS: Basophils # (auto) 0.01 K/uL (0-0.2); Basophils % (auto) 0.1 %; Eosinophils # (auto) 0.12 K/uL (0-0.5); Eosinophils % (auto) 1.6 %; Hematocrit (blood only) 29.2 % (37-47); Hemoglobin 9.3 g/dL (12.0-16.0); Immature Granulocytes # (auto) 0.02 K/uL (0.00-0.02); Immature Granulocytes % (auto) 0.3 %; Lymphocytes # (auto) 0.75 K/uL (1.2-3.4); Lymphocytes % (auto) 10.2 %; Mean Corpuscular Hemoglobin 29.2 pg (25-34); Mean Corpuscular Hgb Conc 31.8 g/dL (32-36); Mean Corpuscular Volume 91.8 fL (80-100); Mean Platelet Volume 10.3 fL (7.4-10.4); Monocytes # (auto) 0.35 K/uL (0.11-0.59); Monocytes % (auto) 4.8 %; Neutrophils # (auto) 6.09 K/uL (1.4-6.5); Platelet Count 153 K/uL (130-400); RDW Coefficient of Variation 15.2 % (11.5-14.5); RDW Standard Deviation 50.7 fL (36.4-46.3); Red Blood Count 3.18 M/uL (4.2-5.4); White Blood Count 7.34 K/uL (4.8-10.8)
[2021-09-04 07:21] LABS: BUN Creatinine Ratio 22.1 (10-20); Calcium 8.4 mg/dl (8.5-10.1); Creatinine Clr Calc Pharmacy 54.5 ml/min; Est GFR (African American) 96.3 ml/min; Est GFR (Non-African American) 83.1 ml/min
[2021-09-04 07:22] LABS: Phosphorus 2.5 mg/dl (2.5-4.9)
[2021-09-04] MEDS: SODIUM CHLOR 7% 4 ML NEB NEB SCH ×2 (07:24→19:57)
[2021-09-04] MEDS: ACETYLCYSTEINE 20% INHAL SOLN 4ML ***DISPENSED BY RESP. INH SCH (07:25)
[2021-09-04] MEDS: ALBUTEROL 0.083% NEBU SOLN 3 ML VIAL INH SCH ×2 (07:26→19:49)
[2021-09-04] MEDS: cefUROXime axetil 500 MG TAB PO SCH ×2 (08:19→17:03)
[2021-09-04] MEDS: ADVANCED PROBIOTIC 1250 MG CAPSULE PO SCH (08:19)
[2021-09-04] MEDS: ASPIRIN 81 MG ECTAB PO SCH (08:19)
[2021-09-04] MEDS: guaiFENesin 600 MG TABCR PO SCH ×2 (08:19→21:29)
[2021-09-04] MEDS: UMECLIDINIUM/VILANTEROL 62.5/25MCG 7 PUFFS/INHALER INH SCH (08:22)
[2021-09-04] MEDS: CHOLECALCIFEROL 1,000 UNITS 25 MCG TAB PO SCH (08:22)
[2021-09-04] MEDS: ENOXAPARIN INJ 40 MG/0.4 ML SYR SQ SCH (10:43)
[2021-09-04] MEDS: ACETAMINOPHEN 325 MG TAB PO PRN (11:29)
--- NOTE | 2021-09-04 14:31 | CT Scan Report ---
CT SCAN OF THE ABDOMEN AND PELVIS WITHOUT IV CONTRAST CLINICAL HISTORY: Hematuria. COMPARISON STUDY: Abdominal CT dated 08/16/2021. Pelvic CT dated 08/19/2021. TECHNIQUE: CT scan of the abdomen and pelvis is performed from the lung bases to the proximal femora. Images are reviewed in the axial, sagittal, and coronal planes. IV contrast was not administered for this examination. Note that the examination was performed in suboptimal fashion without oral and IV contrast. A dose lowering technique was utilized adhering to the principles of ALARA. CT DOSE: 288.72 mGycm FINDINGS: Lung bases: The heart is mildly enlarged noting trace pericardial effusion. There are coronary artery calcifications. Airspace consolidation is seen at both lung bases with numerous tree-in-bud opacitie s and foci of mucus plugging. There is a small hiatal hernia. Circumferential wall thickening is sugg ested at the gastroesophageal junction. Liver: The unenhanced liver is normal in size, contour, and attenuation. There is no intrahepatic meme iary ductal dilatation. Gallbladder: Unremarkable. Spleen: Normal in size and attenuation. Second perisplenic varices are similar to previous. Pancreas: The unenhanced pancreas is atrophic and grossly unremarkable. Adrenal glands: Bilateral adrenal adenomas measure up to 2.2 cm. Kidneys: The unenhanced kidneys are atrophic and without hydronephrosis. There are no renal calculi i dentified. There is no evidence of contour deforming renal mass lesion. Abdominal vasculature: There is advanced atherosclerotic calcification of the abdominal aorta with ev idence of aortobiiliac bypass. The residual aneurysm sac measures up to 3.7 cm in diameter. Mild infi ltration around the aortic graft is unchanged. There is increasing inflammatory change around the rig ht iliac bypass as compared to 08/16/2021. Bowel: There is no bowel obstruction. Moderate fecal retention is seen throughout the colon. The appe ndix is well-visualized and normal. Peritoneum: There is no intraperitoneal free air or abdominal ascites. A midline surgical scar is not ed. There are several fat-containing supraumbilical hernias. Lymphadenopathy: None. Pelvic viscera: The bladder is decompressed around a Patel catheter. Hyperdense fluid is suggested wi thin the bladder lumen and there is pericystic infiltration. The uterus and adnexa are normal as visu alized. Skeletal structures: The skeletal structures are osteopenic. There is moderate lumbosacral spondylosi s. No lytic or blastic lesions are seen. There is chronic posttraumatic and postoperative change is s een in the left proximal femur. There are subacute/healing right pubic ring fractures. IMPRESSION: 1. The bladder is largely decompressed around a Patel. Hyperdense fluid is suggested within the bladd er lumen and may represent blood clots, and there is also mild pericystic infiltration. Correlate wit h clinical findings and urinalysis. 2. There is dependent airspace consolidation with tree-in-bud airspace opacities and mucous plugging at the lung bases. Correlate clinically for evidence of pneumonia/aspiration pneumonitis. 3. 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 Mild infiltration around the aorta is julio lar to previous. There is increasing infiltration around the right iliac bypass. This is of indetermi nant etiology/significance, and clinical correlation will be required. 4. There are subacute/healing right pubic ring fractures. 5. Additional findings as above. ACT 112: Negative or not required by law. Electronically signed by: Merrill Pro M.D. 09/04/2021 2:29 PM
--- NOTE | 2021-09-04 16:37 | Hospitalist Progress Note ---
Date of Service September 04, 2021 Assessment & Plan (1) SARS-CoV-2 positive: Plan: Presented with ongoing fever and cough without any significant shortness of breath COVID 19 Infection H/O PE, COPD, bronchiectasis H/O COVID in [place] Pulmonary nodules--suspicious for neoplastic process Appreciate pulmonary input Anticoagulation discontinued secondary to hematuria Currently saturating 94% on room air Continue home inhalers Needs follow-up with pulmonology upon discharge Currently doesn't need covid treatment Chronic Mucomyst--discontinued as per pulmonary recommendations (2) Bronchiectasis: Plan: Empirically on Ceftin Continue home inhalers (3) COPD exacerbation: Plan: No signs of Exacerbation Hematuria Unclear source of bleeding --CT ABD:The bladder is largely decompressed around a Patel. Hyperdense fluid is suggested within the bladder lumen and may represent blood clots, and there is also mild pericystic infiltration. Correlate with clinical findings and urinalysis. There is dependent airspace consolidation with tree-in-bud airspace opacities and mucous plugging at the lung bases. Correlate clinically for evidence of pneumonia/aspiration pneumonitis. 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 Mild infiltration around the aorta is similar to previous. There is increasing infiltration around the right iliac bypass. This is of indeterminant etiology/significance, and clinical correlation will be required. There are subacute/healing right pubic ring fractures. -Hold Aspirin Monitor CBC Consult Urology Right Pubic Ring Fracture Diagnosed last admission CT as above PT/OT as able (4) HTN (hypertension): Plan: BP on lower side IV fluids as needed (5) Depression: Plan: No acute confusion and delirium (6) Dementia: Plan: Has dementia No agitation (7) Weakness: Plan: PT OT prior to discharge DVT Px: SCDs Re: Hematuria CODE STATUS Full Code Admission and Anticipated Discharge Date Admission Date: August 30, 2021 Subjective Patient is seen and examined bedside States having mild right hip pain Also reports minimal cough Noted hematuria Denies any abdominal pain, chest pain, dizziness, nausea Saturating well on room air Review of Systems Review of Systems: All systems reviewed & are unremarkable except as noted in Subjective Physical Exam Physical Exam: Physical Exam: Vitals signs as noted above General Appearance:Thin, no apparent distress Head: normocephalic, Atraumatic Eyes: normal inspection, EOMI Neck: supple, Trachea midline Respiratory/Chest: Decreased breath sounds, CTA Cardiovascular: S1, S2, No murmur Abdomen/GI:Soft, Non tender, Bowel sounds present Extremities/Musculoskeletal:normal inspection, Trace edema Neurologic/Psych:Alert, awake, grossly moves all extremities Skin: normal color, warm Results & Data Results & Data ([facility]) Vital Signs (Past 12 Hours) Vital Signs Temp Pulse Pulse Resp BP Pulse Ox 09/04/21 14:18 85 09/04/21 11:35 37.2 C 95 H 20 101/63 94 09/04/21 07:35 94 H 09/04/21 07:26 94 H 16 97 09/04/21 07:14 2 L 09/04/21 07:13 37.6 C H 93 H 20 96/57 L 89 L Laboratory Results Short CBC 09/04/21 Range/Units 06:06 WBC 7.34 (4.8-10.8) K/uL Hgb 9.3 L (12.0-16.0) g/dL Hct 29.2 L (37-47) % Plt Count 153 (130-400) K/uL BMP 09/04/21 06:06 Sodium 137 Potassium 4.0 Chloride 109 H Carbon Dioxide 20 L BUN 14 Creatinine 0.64 Glucose 79 Calcium 8.4 L (1) Bronchiectasis Bronchiectasis type: with acute exacerbation Qualified Code(s): J47.1 - Bronchiectasis with (acute) exacerbation (2) HTN (hypertension) Hypertension type: essential hypertension Qualified Code(s): I10 - Essential (primary) hypertension (3) Depression Depression Type: major depressive disorder Major depression recurrence: unspecified whether recurrent Active/Remission status: remission status unspecified Qualified Code(s): F32.9 - Major depressive disorder, single episode, unspecified
--- NOTE | 2021-09-04 18:53 | Urology Consultation ---
Date of Consultation September 04, 2021 Assessment & Plan (1) Hematuria: Concerning the patient's hematuria she does have a Patel catheter in place that appears to be draining adequately. The urine is red-colored. I did not appreciate any visible clots in the Patel catheter bag. All anticoagulation the patient has been taking has been discontinued and placed on hold. I would recommend continuing this until the patient has clear urine. As long as the Patel catheter is draining adequately there is no need for acute intervention at this time. If the patient does develop bladder outlet obstruction from blood clots irrigation attempts could be employed manually and if this is unsuccessful continuous bladder irrigation may be required but I not feel this is needed at this time. Also recommend following serial hemoglobin and hematocrits transfusion to be implemented as needed but will defer this to primary service. Additional recommendations be forthcoming based on patient's clinical course as unfolds. History of Present Illness Reason for Consultation: Hematuria Attending Physician: Mckay Jett MD History of Present Illness This is an 81-year-old female who was brought into the emergency department on 08/29/2021 secondary to fever. Should be noteworthy to mention that the patient has dementia therefore the patient could not provide much in the way of meaningful information. Due to the patient's fever there was concern the patient had a urinary tract infection. However upon evaluation patient was noted to have a positive Covid test. This with the presence of fever prompted admission to the hospital. I visited with the patient at bedside she currently denies any cough, fever, shortness of breath, or chills. She has had a Patel catheter placed since being in the hospital developed gross hematuria. Patient notes that she did not have any dysuria. She also denies any abdominal or back pain. She denies any discomfort from the Patel catheter. She did note she had an episode of hematuria in the past but this self resolved however I am uncertain of the details of this due to her underlying dementia. Patient has had a urine culture this admission which was positive for yeast. She has been treated with antibiotics in the form of Ceftin. Since admission to the hospital the patient has had labs and imaging which independent reviewed. On chest x-ray the patient was noted to have findings consistent with emphysema. She was also noted to have a right suprahilar pulmonary nodule. No other evidence of pneumonia was noted. CT scan of the abdomen and pelvis was performed today. The study showed that the patient had a bladder that was decompressed by pre-existing Patel catheter. There was some hyperdense fluid in the bladder which was consistent with potential blood clot. There is also pericystic infiltration noted. Labs include a CBC her white blood cell count and platelet count were both noted be within normal range. Her hemoglobin and hematocrit were noted to be 9.3 and 29.2 respectively. When compared to prior labs this hemoglobin demonstrated approximately a 2 g drop from values obtained on 08/22/2021. Chemistry profile showed a sodium, potassium, BUN, and creatinine were all within normal range. Patient's most recent urinalysis this admission was from 08/29/2021. This showed turbid urine with 3+ blood, 2+ leukocyte esterase, greater than 30 white blood cells per high-power field, and no bacteria. It is noteworthy mention that the patient was admitted with a positive Covid test on 08/29/2021. At the time of my interview with the patient she was resting comfortably in bed. She was in no distress and she did not offer any complaints. Allergies Allergy/AdvReac Type Severity Reaction Status Date / Time No Known Allergies Allergy Verified 08/29/21 17:36 Home Medications Medication Instructions Recorded Confirmed Type pravastatin 40 mg tablet 40 mg PO HS 09/21/19 08/29/21 History sertraline 100 mg tablet 100 mg PO QPM 09/21/19 08/29/21 History sertraline 50 mg tablet 50 mg PO QPM 09/21/19 08/29/21 History albuterol sulfate 2.5 mg INHALATION DIRECTED 11/01/20 08/29/21 History cholecalciferol (vitamin D3) 50 50 mcg PO QAM 02/14/21 08/29/21 History mcg (2,000 unit) capsule (Vitamin D3) diclofenac sodium 1 % topical gel 1 ea TOPICAL QID PRN 02/14/21 08/29/21 History guaifenesin 600 mg tablet, 1,200 mg PO BID 02/14/21 08/29/21 History extended release 12 hr (Mucinex) furosemide 20 mg tablet 20 mg PO DAILY PRN 08/14/21 08/29/21 History umeclidinium 62.5 mcg-vilanterol 1 ea INHALATION DAILY #14 ea 08/17/21 08/29/21 Rx 25 mcg/actuation powdr for inhalation (Anoro Ellipta) L.acidop,casei,lactis,rham-B.lact,jackie 2 cap PO DAILY 7 Days #14 cap 08/24/21 08/29/21 Rx 625 mg (10 billion cell) capsule (Advanced Probiotic) amoxicillin 875 mg-potassium 1 tab PO BIDM 7 Days #14 tab 08/24/21 08/29/21 Rx clavulanate 125 mg tablet (Augmentin) acetylcysteine 200 mg/mL (20 %) 5 ml INHALATION Q12H 08/29/21 08/29/21 History solution aspirin 81 mg tablet,delayed 81 mg PO DAILY 08/29/21 08/29/21 History release sodium chloride 7 % for 4 ml NEB BID 08/29/21 08/29/21 History nebulization Patient History Medical History AAA (abdominal aortic aneurysm) "s/p repair of ruptured AAA in 2010" Bronchiectasis CKD (chronic kidney disease), stage III COPD (chronic obstructive pulmonary disease) Dementia Depression Female stress incontinence H/O: CVA (cerebrovascular accident) Hip fracture History of COVID-19 History of pulmonary embolism HTN (hypertension) Hyperlipidemia Palliative care encounter Peripheral vascular disease Pulmonary nodule Recurrent pneumonia SARS-CoV-2 positive Tobacco use disorder Weakness Surgical History S/P AAA repair "s/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 Desir with bifurcated graft, left femoral thromboendarterectomy with patch angioplasty, right femoral thromboendarterectomy, and right iliofemoral bypass" S/P laparotomy "10/16/11- abdominal exploration, wound vac placement; 10/18/11- abdominal washout and closure. 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 Beliefs That Will Affect Care: None marital status: 2 daughters marital status details: of COVID in Nov 2020 Current Living Situation: Family Current Living Situation Comment: Lives w/ daughter Feels Safe at Home: Yes Safety Concerns: Feels Safe At This Time Assistive Devices: Denture - Upper, Denture - Lower and Glasses Assistive Devices Comment: Wears 2L chronic Review of Systems Review of Systems: Full review of systems unable to be obtained due to patient's dementia Constitutional: + fever Respiratory: no cough and no dyspnea Cardiovascular: no chest pain Gastrointestinal: no abdominal pain, no nausea and no vomiting Genitourinary: + hematuria; no dysuria Musculoskeletal: no back pain Physical Exam Constitutional: well developed and well nourished; no acute distress Eyes: no conjunctival abnormality ENMT: Ears: no hearing impairment Mouth: no oropharynx abnormality Neck: trachea midline Respiratory: normal respiratory effort; no respiratory distress and no labored breathing Cardiovascular: Rate/Rhythm: regular rate and regular rhythm Gastrointestinal (Abdomen): Abdomen is soft, nondistended, and nontender to palpation Musculoskeletal: No calf tenderness Skin: no rashes Neurologic: moves all extremities Psychiatric: Patient is alert to person only Results & Data ([facility]) Vital Signs (Past 12 Hours) Vital Signs Temp Pulse Pulse Resp BP Pulse Ox 09/04/21 16:11 93 H 09/04/21 14:18 85 09/04/21 11:35 37.2 C 95 H 20 101/63 94 09/04/21 07:35 94 H 09/04/21 07:26 94 H 16 97 09/04/21 07:14 2 L 09/04/21 07:13 37.6 C H 93 H 20 96/57 L 89 L PG Care Time/CCT Total # of Minutes Spent Total Time Spent with Patient: Total time spent is greater than 50% in coordination of care (as documented) at patient's floor/unit and/or counseling patient: Coding Level of Care Code 56794 Inpt Consult Level 3 Diagnoses Hematuria R31.9
[2021-09-04 20:10] LABS: Hematocrit (blood only) 27.9 % (37-47); Hemoglobin 9.1 g/dL (12.0-16.0)
[2021-09-04] MEDS: PRAVASTATIN SOD 40 MG TAB PO SCH (21:30)
[2021-09-04] MEDS: SERTRALINE HCL 100 MG TABLET PO SCH (21:30)
[2021-09-04] MEDS: SERTRALINE HCL 50 MG TABLET PO SCH (21:30)
[2021-09-05 07:34] LABS: Hematocrit (blood only) 27.2 % (37-47); Hemoglobin 8.9 g/dL (12.0-16.0)
[2021-09-05] MEDS: SODIUM CHLOR 7% 4 ML NEB NEB SCH ×2 (07:34→19:15)
[2021-09-05] MEDS: ALBUTEROL 0.083% NEBU SOLN 3 ML VIAL INH SCH ×2 (07:34→19:15)
[2021-09-05 08:03] LABS: BUN Creatinine Ratio 19.8 (10-20); C Reactive Protein 6.23 mg/dl (0-0.29); Calcium 9.3 mg/dl (8.5-10.1); Creatinine Clr Calc Pharmacy 53.6 ml/min; Est GFR (African American) 96.3 ml/min; Est GFR (Non-African American) 83.1 ml/min
[2021-09-05] MEDS ORDERED: SODIUM CHLORIDE 0.9% 250 ML IV PRN (08:49)
[2021-09-05] MEDS: cefUROXime axetil 500 MG TAB PO SCH ×3 (09:15→22:08)
[2021-09-05] MEDS: guaiFENesin 600 MG TABCR PO SCH ×2 (09:15→22:08)
[2021-09-05] MEDS: UMECLIDINIUM/VILANTEROL 62.5/25MCG 7 PUFFS/INHALER INH SCH (09:16)
[2021-09-05] MEDS: CHOLECALCIFEROL 1,000 UNITS 25 MCG TAB PO SCH (09:16)
[2021-09-05] MEDS: ADVANCED PROBIOTIC 1250 MG CAPSULE PO SCH (09:16)
--- NOTE | 2021-09-05 11:17 | Urology Progress Note ---
Date of Service September 05, 2021 Assessment & Plan (1) Hematuria: Plan: 81yo F admitted with Covid-19 infection who developed gross hematuria after Yepez catheter placement - Yepez catheter placed on 09/03 with notable gross hematuria thereafter - CTAP 09/04 noted hyperdense fluid within the bladder lumen likely representing blood clots and mild pericystic infiltration - Hematuria has improved today, Yepez catheter currently draining light pink- tinged urine with no clots noted. - Afebrile - Labs reviewed - Hgb 8.9 today (9.1 yesterday) and creatinine 0.64, will continue to trend - UCx 08/29 with Yeast not Chandrika albicans/dub; BCx 08/29 no growth - Maintain Yepez catheter, ok to gently irrigate as needed for clots, retention, or suprapubic pain - Presuming her urine continues to and remains clear, can attempt voiding trial prior to discharge - Will arrange outpatient follow-up and possible cystoscopy to complete work-up once medically stable - Continue supportive care, antibiotic therapy, and close monitoring - Can consider antifungals given yeast on culture - Will continue to follow peripherally Admission and Anticipated Discharge Date Admission Date: August 30, 2021 Subjective Pt examined at bedside this AM. Resting in bed on arrival. Appears comfortable, no acute distress. AxO to person only, confused at times. No fever overnight. Noted cough. Offers no complaints of pain or discomfort at this time. Tolerating yepez catheter well. Catheter intact/patent, draining light pink-tinged urine, no clots noted in tu ann. Per chart review, on 09/03 nursing noted the patient was agitated, uncooperative and restless due to incontinence and pelvic discomfort with turning and repositioning. A Yepez catheter was then placed and noted to be dark concentrated maki urine with hematuria. Anticoagulants on hold d/t hemturia. Review of Systems Constitutional: as per Subjective / HPI Respiratory: as per Subjective / HPI Gastrointestinal: as per Subjective / HPI Genitourinary: as per Subjective / HPI Physical Exam Constitutional: comfortable; no acute distress Respiratory: + cough; no labored breathing and no audible wheezes Gastrointestinal (Abdomen): Inspection/Auscultation: abdomen normal to inspection; abdomen not distended Percussion/Palpation: abdomen soft; abdomen nontender and no guarding Musculoskeletal: Head/Neck/Chest: normocephalic Skin: No visible rashes or lesions to exposed skin areas Neurologic: moves all extremities and awake Psychiatric: Orientation: alert and oriented to person Genitourinary: Yepez catheter intact Results & Data ([facility]) Vital Signs (Past 12 Hours) Vital Signs Temp Pulse Pulse Resp BP BP Pulse Ox 09/05/21 09:00 37.0 C 102 H 16 100/63 94 09/05/21 07:36 90 16 97 09/05/21 04:00 36.8 C 83 18 115/60 96 09/05/21 01:12 85 PG Care Time/CCT Total # of Minutes Spent Total Time Spent with Patient: Total time spent is greater than 50% in coordination of care (as documented) at patient's floor/unit and/or counseling patient: Coding Level of Care Code 07578 Subseq Hosp Care Lvl 2 Diagnoses Hematuria R31.9
[2021-09-05 14:44] LABS: Hemoglobin 10.6 g/dL (12.0-16.0)
--- NOTE | 2021-09-05 16:41 | Hospitalist Progress Note ---
Date of Service September 05, 2021 Assessment & Plan (1) SARS-CoV-2 positive: Plan: Presented with ongoing fever and cough without any significant shortness of breath COVID 19 Infection H/O PE, COPD, bronchiectasis H/O COVID in Nov 2020 Pulmonary nodules--suspicious for neoplastic process Appreciate pulmonary input Anticoagulation discontinued secondary to hematuria Continue home inhalers Needs follow-up with pulmonology upon discharge Currently doesn't need covid treatment as per Pulm given no worsening of respiratory symptoms Chronic Mucomyst--discontinued as per pulmonary recommendations Saturating well on 2 L supplemental oxygen (2) Bronchiectasis: Plan: Empirically on Ceftin Continue home inhalers (3) COPD exacerbation: Plan: No signs of Exacerbation Hematuria Unclear source of bleeding --CT ABD:The bladder is largely decompressed around a Patel. Hyperdense fluid is suggested within the bladder lumen and may represent blood clots, and there is also mild pericystic infiltration. Correlate with clinical findings and urinalysis. There is dependent airspace consolidation with tree-in-bud airspace opacities and mucous plugging at the lung bases. Correlate clinically for evidence of pneumonia/aspiration pneumonitis. 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 Mild infiltration around the aorta is similar to previous. There is increasing infiltration around the right iliac bypass. This is of indeterminant etiology/significance, and clinical correlation will be required. There are subacute/healing right pubic ring fractures. -Hold Aspirin for now Monitor CBC Appreciate Urology Input Hematuria better today Hemoglobin stable Voiding trial prior to discharge if hematuria resolves Needs outpatient cystoscopy Bladder scan every shift to monitor for retention Right Pubic Ring Fracture Diagnosed last admission CT as above PT/OT as able (4) HTN (hypertension): Plan: BP on lower side IV fluids as needed (5) Depression: Plan: No acute confusion and delirium (6) Dementia: Plan: Has dementia No agitation (7) Weakness: Plan: PT OT prior to discharge DVT Px: SCDs Re: Hematuria CODE STATUS Full Code Admission and Anticipated Discharge Date Admission Date: August 30, 2021 Subjective Patient is seen and examined bedside Denies any hip pain today Sitting in chair during my encounter Diarrhea better today Hb Stable Reports minimal cough Denies any abdominal pain, chest pain, dizziness, nausea Review of Systems Review of Systems: All systems reviewed & are unremarkable except as noted in Subjective Physical Exam Physical Exam: Physical Exam: Vitals signs as noted above General Appearance:Thin, no apparent distress Head: normocephalic, Atraumatic Eyes: normal inspection, EOMI Neck: supple, Trachea midline Respiratory/Chest: Decreased breath sounds, CTA Cardiovascular: S1, S2, No murmur Abdomen/GI:Soft, Non tender, Bowel sounds present Extremities/Musculoskeletal:normal inspection, Trace edema Neurologic/Psych:Alert, awake, grossly moves all extremities Skin: normal color, warm Results & Data Results & Data ([facility]) Vital Signs (Past 12 Hours) Vital Signs Temp Pulse Resp BP Pulse Ox 09/05/21 09:00 37.0 C 102 H 16 100/63 94 09/05/21 07:36 90 16 97 Laboratory Results Short CBC 09/04/21 09/05/21 09/05/21 Range/Units 19:56 07:05 14:07 Hgb 9.1 L 8.9 L 10.6 L (12.0-16.0) g/dL Hct 27.9 L 27.2 L 33.0 L (37-47) % BMP 09/05/21 07:05 Sodium 137 Potassium 4.0 Chloride 109 H Carbon Dioxide 21 BUN 13 Creatinine 0.64 Glucose 91 Calcium 9.3 (1) Bronchiectasis Bronchiectasis type: with acute exacerbation Qualified Code(s): J47.1 - Bronchiectasis with (acute) exacerbation (2) HTN (hypertension) Hypertension type: essential hypertension Qualified Code(s): I10 - Essential (primary) hypertension (3) Depression Depression Type: major depressive disorder Major depression recurrence: unspecified whether recurrent Active/Remission status: remission status unspecified Qualified Code(s): F32.9 - Major depressive disorder, single episode, unspecified
[2021-09-05] MEDS: SERTRALINE HCL 50 MG TABLET PO SCH (22:08)
[2021-09-05] MEDS: PRAVASTATIN SOD 40 MG TAB PO SCH (22:08)
[2021-09-05] MEDS: SERTRALINE HCL 100 MG TABLET PO SCH (22:09)
[2021-09-06] MEDS: ALBUTEROL 0.083% NEBU SOLN 3 ML VIAL INH SCH ×2 (07:29→20:05)
[2021-09-06] MEDS: SODIUM CHLOR 7% 4 ML NEB NEB SCH ×2 (07:30→20:05)
[2021-09-06 07:37] LABS: Hematocrit (blood only) 28.7 % (37-47); Hemoglobin 9.4 g/dL (12.0-16.0); Mean Corpuscular Hemoglobin 29.8 pg (25-34); Mean Corpuscular Hgb Conc 32.8 g/dL (32-36); Mean Corpuscular Volume 91.1 fL (80-100); Mean Platelet Volume 10.1 fL (7.4-10.4); Platelet Count 204 K/uL (130-400); RDW Coefficient of Variation 15.4 % (11.5-14.5); RDW Standard Deviation 50.6 fL (36.4-46.3); Red Blood Count 3.15 M/uL (4.2-5.4); White Blood Count 7.43 K/uL (4.8-10.8)
[2021-09-06 08:21] LABS: BUN Creatinine Ratio 20.1 (10-20); Creatinine Clr Calc Pharmacy 53.3 ml/min; Est GFR (African American) 96.3 ml/min; Est GFR (Non-African American) 83.1 ml/min; Potassium 4.1 mmol/L (3.5-5.1)
[2021-09-06] MEDS: UMECLIDINIUM/VILANTEROL 62.5/25MCG 7 PUFFS/INHALER INH SCH (10:09)
[2021-09-06] MEDS: guaiFENesin 600 MG TABCR PO SCH ×2 (10:09→20:54)
[2021-09-06] MEDS: cefUROXime axetil 500 MG TAB PO SCH ×2 (10:09→17:33)
[2021-09-06] MEDS: CHOLECALCIFEROL 1,000 UNITS 25 MCG TAB PO SCH (10:10)
[2021-09-06] MEDS: ADVANCED PROBIOTIC 1250 MG CAPSULE PO SCH (10:10)
--- NOTE | 2021-09-06 15:34 | Hospitalist Progress Note ---
Date of Service September 06, 2021 Assessment & Plan (1) SARS-CoV-2 positive: Plan: Presented with ongoing fever and cough without any significant shortness of breath COVID 19 Infection H/O PE, COPD, bronchiectasis H/O COVID in Nov 2020 Pulmonary nodules--suspicious for neoplastic process Appreciate pulmonary input Anticoagulation discontinued secondary to hematuria Continue home inhalers Needs follow-up with pulmonology upon discharge Currently doesn't need covid treatment as per Pulm given no worsening of respiratory symptoms Chronic Mucomyst--discontinued as per pulmonary recommendations Currently patient is stable on room air. Hemodynamically she is doing fine. Not appear to be in any distress. Supportive management. Continue work with PT/OT, really ready for discharge. As per CM, likely on Saturday. (2) Bronchiectasis: Plan: Empirically on Ceftin Continue home inhalers (3) COPD exacerbation: Plan: No signs of Exacerbation Hematuria Unclear source of bleeding --CT ABD:The bladder is largely decompressed around a Patel. Hyperdense fluid is suggested within the bladder lumen and may represent blood clots, and there is also mild pericystic infiltration. Correlate with clinical findings and urinalysis. There is dependent airspace consolidation with tree-in-bud airspace opacities and mucous plugging at the lung bases. Correlate clinically for evidence of pneumonia/aspiration pneumonitis. 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 Mild infiltration around the aorta is similar to previous. There is increasing infiltration around the right iliac bypass. This is of indeterminant etiology/significance, and clinical correlation will be required. There are subacute/healing right pubic ring fractures. -Hold Aspirin for now Appreciate Urology Input Amatory appears to be better. Hemoglobin is stable. Patient will need voiding trial prior to discharge. Needs outpatient cystoscopy Bladder scan every shift to monitor for retention Right Pubic Ring Fracture Diagnosed last admission CT as above (4) HTN (hypertension): Plan: stable (5) Depression: Plan: No acute confusion and delirium (6) Dementia: Plan: Has dementia No agitation (7) Weakness: Plan: PT OT prior to discharge DVT Px: SCDs Re: Hematuria CODE STATUS Full Code Admission and Anticipated Discharge Date Admission Date: August 30, 2021 Subjective Patient is resting comfortably. Currently she is on room air. Patient does not appear to be in any distress. She is pleasantly confused. Could not obtain full review of system given her baseline mental status. Review of Systems Review of Systems: All systems reviewed & are unremarkable except as noted in HPI & below Physical Exam Physical Exam: General: A&Ox3 HENT: NCAT, MMM, EOMI Eyes: PERRLA Neck: Supple, normal range of motion CVS: normal rate and rhythm Resp: b/l coarse breath sounds Abdomen: Soft, ND/NT Extremities: No c/c/e Neuro: face symmetric, could not assess as patient did not follow command Skin: warm and dry, no rashes/lesions/errythema MSK: normal ROM, no joint swelling/erythema Catheter in place Results & Data Results & Data ([facility]) Vital Signs (Past 12 Hours) Vital Signs Temp Pulse Resp BP Pulse Ox 09/06/21 15:15 38.1 C H 92 H 20 131/74 96 09/06/21 11:00 36.4 C L 99 H 16 102/47 L 93 09/06/21 08:01 37.4 C 89 16 121/73 100 09/06/21 07:31 95 H 16 98 09/06/21 05:29 18 94 (1) Bronchiectasis Bronchiectasis type: with acute exacerbation Qualified Code(s): J47.1 - Bronchiectasis with (acute) exacerbation (2) HTN (hypertension) Hypertension type: essential hypertension Qualified Code(s): I10 - Essential (primary) hypertension (3) Depression Depression Type: major depressive disorder Major depression recurrence: unspecified whether recurrent Active/Remission status: remission status unspecified Qualified Code(s): F32.9 - Major depressive disorder, single episode, unspecified
[2021-09-06] MEDS: SERTRALINE HCL 50 MG TABLET PO SCH (20:54)
[2021-09-06] MEDS: PRAVASTATIN SOD 40 MG TAB PO SCH (20:54)
[2021-09-06] MEDS: SERTRALINE HCL 100 MG TABLET PO SCH (20:55)
[2021-09-07] MEDS: ACETAMINOPHEN 325 MG TAB PO PRN ×2 (03:41→20:35)
[2021-09-07] MEDS: SODIUM CHLOR 7% 4 ML NEB NEB SCH ×2 (07:36→19:38)
[2021-09-07] MEDS: ALBUTEROL 0.083% NEBU SOLN 3 ML VIAL INH SCH ×2 (07:36→19:38)
[2021-09-07] MEDS: cefUROXime axetil 500 MG TAB PO SCH ×2 (08:45→17:44)
[2021-09-07] MEDS: UMECLIDINIUM/VILANTEROL 62.5/25MCG 7 PUFFS/INHALER INH SCH (08:46)
[2021-09-07] MEDS: ADVANCED PROBIOTIC 1250 MG CAPSULE PO SCH (08:46)
[2021-09-07] MEDS: guaiFENesin 600 MG TABCR PO SCH ×2 (08:46→20:36)
[2021-09-07] MEDS: CHOLECALCIFEROL 1,000 UNITS 25 MCG TAB PO SCH (08:46)
--- NOTE | 2021-09-07 12:42 | Hospitalist Progress Note ---
Date of Service September 07, 2021 Assessment & Plan (1) SARS-CoV-2 positive: Plan: Presented with ongoing fever and cough without any significant shortness of breath COVID 19 Infection H/O PE, COPD, bronchiectasis H/O COVID in Nov 2020 Pulmonary nodules--suspicious for neoplastic process Appreciate pulmonary input Anticoagulation discontinued secondary to hematuria Continue home inhalers Needs follow-up with pulmonology upon discharge Currently doesn't need covid treatment as per Pulm given no worsening of respiratory symptoms Chronic Mucomyst--discontinued as per pulmonary recommendations Currently patient is stable on room air. Hemodynamically she is doing fine. Not appear to be in any distress. Supportive management. Continue work with PT/OT, medically ready for discharge. As per CM, likely on Saturday. (2) Bronchiectasis: Plan: Empirically on Ceftin Continue home inhalers (3) COPD exacerbation: Plan: No signs of Exacerbation Hematuria Unclear source of bleeding --CT ABD:The bladder is largely decompressed around a Patel. Hyperdense fluid is suggested within the bladder lumen and may represent blood clots, and there is also mild pericystic infiltration. Correlate with clinical findings and urinalysis. There is dependent airspace consolidation with tree-in-bud airspace opacities and mucous plugging at the lung bases. Correlate clinically for evidence of pneumonia/aspiration pneumonitis. 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 Mild infiltration around the aorta is similar to previous. There is increasing infiltration around the right iliac bypass. This is of indeterminant etiology/significance, and clinical correlation will be required. There are subacute/healing right pubic ring fractures. -Hold Aspirin for now Appreciate Urology Input Amatory appears to be better. Hemoglobin is stable. Patient will need voiding trial prior to discharge. Needs outpatient cystoscopy Bladder scan every shift to monitor for retention Right Pubic Ring Fracture Diagnosed last admission CT as above (4) HTN (hypertension): Plan: stable (5) Depression: Plan: No acute confusion and delirium (6) Dementia: Plan: Has dementia No agitation (7) Weakness: Plan: PT OT prior to discharge DVT Px: SCDs Re: Hematuria CODE STATUS Full Code Admission and Anticipated Discharge Date Admission Date: August 30, 2021 Subjective Could not obtain full review of system given her baseline dementia. Amos patient is on room air and hemodynamically stable. She does not appear to be in any distress. Review of Systems Review of Systems: All systems reviewed & are unremarkable except as noted in HPI & below Physical Exam Physical Exam: General: A&Ox3 HENT: NCAT, MMM, EOMI Eyes: PERRLA Neck: Supple, normal range of motion CVS: normal rate and rhythm Resp: b/l coarse breath sounds Abdomen: Soft, ND/NT Extremities: No c/c/e Neuro: face symmetric, could not assess as patient did not follow command Skin: warm and dry, no rashes/lesions/errythema MSK: normal ROM, no joint swelling/erythema Catheter in place Results & Data Results & Data ([facility]) Vital Signs (Past 12 Hours) Vital Signs Temp Pulse Resp BP Pulse Ox 09/07/21 12:05 36.4 C L 93 H 18 104/89 95 09/07/21 07:45 36.6 C 91 H 16 113/66 99 09/07/21 07:36 97 H 16 99 09/07/21 04:58 37.1 C 09/07/21 03:40 38.0 C H 106 H 16 142/73 H 94 (1) Bronchiectasis Bronchiectasis type: with acute exacerbation Qualified Code(s): J47.1 - Bronchiectasis with (acute) exacerbation (2) HTN (hypertension) Hypertension type: essential hypertension Qualified Code(s): I10 - Essential (primary) hypertension (3) Depression Depression Type: major depressive disorder Major depression recurrence: unspecified whether recurrent Active/Remission status: remission status unspecified Qualified Code(s): F32.9 - Major depressive disorder, single episode, unspecified
[2021-09-07] MEDS: SERTRALINE HCL 50 MG TABLET PO SCH (20:35)
[2021-09-07] MEDS: SERTRALINE HCL 100 MG TABLET PO SCH (20:35)
[2021-09-07] MEDS: PRAVASTATIN SOD 40 MG TAB PO SCH (20:35)
[2021-09-08] MEDS: SODIUM CHLOR 7% 4 ML NEB NEB SCH ×2 (07:09→20:30)
[2021-09-08] MEDS: ALBUTEROL 0.083% NEBU SOLN 3 ML VIAL INH SCH ×2 (07:09→20:30)
[2021-09-08 08:27] LABS: Basophils # (auto) 0.01 K/uL (0-0.2); Basophils % (auto) 0.1 %; Eosinophils % (auto) 1.2 %; Hematocrit (blood only) 31.6 % (37-47); Hemoglobin 10.1 g/dL (12.0-16.0); Immature Granulocytes # (auto) 0.06 K/uL (0.00-0.02); Immature Granulocytes % (auto) 0.7 %; Lymphocytes # (auto) 0.83 K/uL (1.2-3.4); Lymphocytes % (auto) 10.2 %; Mean Corpuscular Hemoglobin 29.7 pg (25-34); Mean Corpuscular Volume 92.9 fL (80-100); Monocytes % (auto) 6.2 %; Neutrophils % (auto) 81.6 %; Platelet Count 241 K/uL (130-400); RDW Coefficient of Variation 15.5 % (11.5-14.5); RDW Standard Deviation 52.4 fL (36.4-46.3)
[2021-09-08 09:06] LABS: BUN Creatinine Ratio 21.8 (10-20); Calcium 9.1 mg/dl (8.5-10.1); Creatinine Clr Calc Pharmacy 50.9 ml/min; Est GFR (Non-African American) 81.1 ml/min; Potassium 3.6 mmol/L (3.5-5.1)
[2021-09-08] MEDS: guaiFENesin 600 MG TABCR PO SCH ×2 (09:22→20:55)
[2021-09-08] MEDS: cefUROXime axetil 500 MG TAB PO SCH (09:22)
[2021-09-08] MEDS: ADVANCED PROBIOTIC 1250 MG CAPSULE PO SCH (09:22)
[2021-09-08] MEDS: CHOLECALCIFEROL 1,000 UNITS 25 MCG TAB PO SCH (09:22)
--- NOTE | 2021-09-08 10:39 | Hospitalist Progress Note ---
Date of Service September 08, 2021 Assessment & Plan (1) SARS-CoV-2 positive: Plan: h/o COVID infection in Nov 2020, Fever appears to have resolved, afebrile in last 24 hours. Some cough still reported. Not requiring oxygen supplementation at this time and doing well. Not qualifying for remdesivir or steroids at this time. Cont supportive care efforts. (2) Hematuria: Plan: uncertain etiology, aspirin and DVT chemoprophylaxis held and urine has cleared. No clear reason for hematuria seen on CT a/p. Per Urology, TOV prior to discharge is recommended with outpatient follow-up for cystoscopy. (3) Bronchiectasis: Plan: she is on chronic supplemental oxygen at home 2LPM. Multiple episodes of recurrent pneumonia this year. Evaluated by pulmonology this admission. There is no evidence of a COPD exacerbation. Pt is on Anoro Elilipta at home which is being continued. Mucinex BID recommended. Pulmonary toilet [facility] flutter valve, ambulate as tolerated. Chronic saline nebs and acetylcysteine nebs have been discontinued. Duoneb PRN, flutter valve and pulm vest if needed. (4) COPD exacerbation: Plan: No signs of Exacerbation (5) HTN (hypertension): Plan: controlled, cont home medications. (6) Depression: Plan: cont sertraline per home regimen. (7) Dementia: Plan: mentating at her baseline. (8) Weakness: Plan: Right Pubic Ring Fracture after a fall in Jul 2021. Evaluated by ortho last admission and advance WBAT. Weakness likely multifactorial related to current illness and hospitalization and multiple comorbidities including possible lung cancer diagnosis, cont PT/OT. (9) Pulmonary nodules: Plan: Pulmonary nodules--suspicious for neoplastic process, fabrice RUL mass which has significantly increased in size since Nov 2020 per previous notes. Bronchoscopy considered however, this was not done because family didn't want to be aggressive per record review. Palliative discussions took place last admission (early Aug 2021) and code status still remains full. Malignancy is a likely etiology and this should be addressed sooner rather than later to ensure treatment plans align [facility] patient and family's goals for her care. (10) DVT prophylaxis: Plan: SCDs, chemoprophylaxis held in setting of hematuria Full Code Dispo-to SNF when bed available. DO Rolo [facility] Hospitalist Admission and Anticipated Discharge Date Admission Date: August 30, 2021 Subjective 81 yo F admitted wtih covid pneumonia. baseline dementia but states she is doing well, doesn't know where she is but is pleasant and reports eating without issue. breathing is "fine", some coughing reported. No fever overnight. Review of Systems Review of Systems: ROS is limited 2/2 dementia Physical Exam Physical Exam: CONSTITUTIONAL: WNWD, vitals as above, generally well- appearing EYES: normal conjunctivae, no scleral icterus ENT: external ear and nose normal, MMM RESPIRATORY: clear to auscultation bilaterally, no crackles, rales or wheezes, normal respiratory effort CARDIOVASCULAR: regular rate and rhythm, S1 and 2 heard without murmurs, gallops or rubs, no JVD, no peripheral edema GASTROINTESTINAL: soft, nontender, ND MUSCULOSKELETAL: generalized weakness without gross focal deficits. SKIN: warm and dry NEUROLOGIC: CN 2-12 grossly intact, normal cognition, normal speech, no tremor PSYCHIATRIC: alert cooperative and oriented to self only, answering questions appropriately. Results & Data Results & Data ([facility]) Vital Signs (Past 12 Hours) Vital Signs Temp Pulse Pulse Resp BP Pulse Ox 09/08/21 07:10 105 H 16 95 09/08/21 06:16 36.6 C 99 H 18 108/71 93 09/07/21 23:54 98 H (1) Depression Active/Remission status: remission status unspecified Depression Type: major depressive disorder Major depression recurrence: unspecified whether recurrent Qualified Code(s): F32.9 - Major depressive disorder, single episode, unspecified (2) Bronchiectasis Bronchiectasis type: with acute exacerbation Qualified Code(s): J47.1 - Bronchiectasis with (acute) exacerbation (3) HTN (hypertension) Hypertension type: essential hypertension Qualified Code(s): I10 - Essential (primary) hypertension
[2021-09-08] MEDS: UMECLIDINIUM/VILANTEROL 62.5/25MCG 7 PUFFS/INHALER INH SCH (15:10)
[2021-09-08] MEDS: PRAVASTATIN SOD 40 MG TAB PO SCH (20:55)
[2021-09-08] MEDS: SERTRALINE HCL 50 MG TABLET PO SCH (20:55)
[2021-09-08] MEDS: SERTRALINE HCL 100 MG TABLET PO SCH (20:55)
[2021-09-09] MEDS: ALBUTEROL 0.083% NEBU SOLN 3 ML VIAL INH SCH ×2 (07:12→20:53)
[2021-09-09] MEDS: SODIUM CHLOR 7% 4 ML NEB NEB SCH ×2 (07:13→20:53)
[2021-09-09] MEDS: guaiFENesin 600 MG TABCR PO SCH ×2 (08:19→09:00)
[2021-09-09] MEDS: ADVANCED PROBIOTIC 1250 MG CAPSULE PO SCH (08:21)
[2021-09-09] MEDS: CHOLECALCIFEROL 1,000 UNITS 25 MCG TAB PO SCH (08:22)
[2021-09-09] MEDS: UMECLIDINIUM/VILANTEROL 62.5/25MCG 7 PUFFS/INHALER INH SCH ×2 (09:00→11:43)
[2021-09-09] MEDS: guaiFENesin/DEXTROM SYRUP 200MG/20MG 10ML UDC PO PRN ×2 (11:43→21:16)
--- NOTE | 2021-09-09 18:03 | Hospitalist Progress Note ---
Date of Service September 09, 2021 Assessment & Plan (1) SARS-CoV-2 positive: Plan: h/o COVID infection in Nov 2020, Fever appears to have resolved, afebrile in last 24 hours. Some cough still reported. Not requiring oxygen supplementation at this time and doing well. Not qualifying for remdesivir or steroids at this time. Cont supportive care efforts. (2) Hematuria: Plan: uncertain etiology, aspirin and DVT chemoprophylaxis held and urine has cleared. No clear reason for hematuria seen on CT a/p. Per Urology, recommended outpatient follow-up for cystoscopy. Patel catheter removed on 09/09 (3) Bronchiectasis: Plan: she is on chronic supplemental oxygen at home 2LPM. Multiple episodes of recurrent pneumonia this year. Evaluated by pulmonology this admission. There is no evidence of a COPD exacerbation. Pt is on Anoro Elilipta at home which is being continued. Mucinex BID recommended. Pulmonary toilet [facility] flutter valve, ambulate as tolerated. Chronic saline nebs and acetylcysteine nebs have been discontinued. Duoneb PRN, flutter valve and pulm vest if needed. (4) COPD exacerbation: Plan: No signs of Exacerbation (5) HTN (hypertension): Plan: controlled, cont home medications. (6) Depression: Plan: cont sertraline per home regimen. (7) Dementia: Plan: mentating at her baseline. (8) Weakness: Plan: Right Pubic Ring Fracture after a fall in Jul 2021. Evaluated by ortho last admission and advance WBAT. Weakness likely multifactorial related to current illness and hospitalization and multiple comorbidities including possible lung cancer diagnosis, cont PT/OT. (9) Pulmonary nodules: Plan: Pulmonary nodules--suspicious for neoplastic process, fabrice RUL mass which has significantly increased in size since Nov 2020 per previous notes. Bronchoscopy considered however, this was not done because family didn't want to be aggressive per record review. Palliative discussions took place last admission (early Aug 2021) and code status still remains full. Malignancy is a likely etiology and this should be addressed sooner rather than later to ensure treatment plans align [facility] patient and family's goals for her care. (10) DVT prophylaxis: Plan: SCDs, chemoprophylaxis held in setting of hematuria Full Code Dispo-to SNF when bed available. [facility] Admission and Anticipated Discharge Date Admission Date: August 30, 2021 Subjective 81 yo F admitted wtih covid pneumonia. baseline dementia but states she is doing well, doesn't know where she is but is pleasant and reports eating without issue. breathing is "fine", some coughing reported. No fever overnight. Review of Systems Review of Systems: ROS is limited 2/2 dementia, she reports no issues today. Physical Exam Physical Exam: CONSTITUTIONAL: WNWD, vitals as above, generally well- appearing, NAD, pleasantly confused. EYES: normal conjunctivae, no scleral icterus ENT: external ear and nose normal, MMM RESPIRATORY: clear to auscultation bilaterally, no crackles, rales or wheezes, normal respiratory effort CARDIOVASCULAR: regular rate and rhythm, S1 and 2 heard without murmurs, gallops or rubs, no JVD, no peripheral edema GASTROINTESTINAL: soft, nontender, ND MUSCULOSKELETAL: generalized weakness without gross focal deficits. SKIN: warm and dry NEUROLOGIC: CN 2-12 grossly intact, normal cognition, normal speech, no tremor PSYCHIATRIC: alert cooperative and oriented to self only, answering questions appropriately. Results & Data Results & Data ([facility]) Vital Signs (Past 12 Hours) Vital Signs Temp Pulse Pulse Resp BP Pulse Ox 09/09/21 15:58 97 H 09/09/21 15:04 36.6 C 95 H 18 101/64 95 09/09/21 11:45 36.5 C 95 H 18 115/67 94 09/09/21 07:50 36.7 C 100 H 16 103/67 93 09/09/21 07:13 86 18 99 09/09/21 07:00 100 H Medications Administered Current Inpatient Medications Acetaminophen (Acetaminophen 325 Mg Tab) 650 mg PO Q4H PRN PRN Reason: Pain or Fever Stop: 09/29/21 04:41 Last Admin: 09/07/21 20:35 Dose: 650 mg Documented by: Albuterol (Albuterol 0.083% Nebu Soln 3 Ml Vial) 2.5 mg INH BIDR [facility] Stop: 09/29/21 06:59 Last Admin: 09/09/21 07:12 Dose: 2.5 mg Documented by: Aspirin (Aspirin 81 Mg Ectab) 81 mg PO DAILY [facility] Stop: 09/29/21 08:59 Last Admin: 09/04/21 08:19 Dose: 81 mg Documented by: Diclofenac Sodium (Diclofenac Sod 1% Gel 100 Gm Tube) 1 gm EXT QID PRN PRN Reason: Pain Stop: 09/29/21 04:41 Enoxaparin Sodium (Enoxaparin Inj 40 Mg/0.4 Ml Syr) 40 mg SQ Q24H ALEX Stop: 09/29/21 08:59 Last Admin: 09/04/21 10:43 Dose: Not Given Documented by: Furosemide (Furosemide 20 Mg Tab) 20 mg PO DAILY PRN PRN Reason: Fluid Retention Stop: 09/29/21 04:41 Guaifenesin/Dextromethorphan (Guaifenesin/Dextrom Syrup 200mg/20mg 10ml Udc) 10 ml PO Q6H PRN PRN Reason: Cough Stop: 10/09/21 10:36 Last Admin: 09/09/21 11:43 Dose: 10 ml Documented by: Lactobacillus Acidoph/Casei/Rhamnos (Advanced Probiotic 1250 Mg Capsule) 2 cap PO DAILY ALEX Stop: 09/29/21 08:59 Last Admin: 09/09/21 08:21 Dose: 2 cap Documented by: Nitroglycerin (Nitroglycerin Sl 0.4 Mg/Tab Tab) 0.4 mg SL UD PRN PRN Reason: Chest Pain Stop: 09/29/21 04:41 Ondansetron HCl (Ondansetron Inj 2 Mg/Ml 2 Ml Vial) 4 mg IV Q6H PRN PRN Reason: Nausea Stop: 09/29/21 04:41 Polyethylene Glycol (Polyethylene (Miralax) 17 Gm Pack) 17 gm PO DAILY PRN PRN Reason: Constipation Stop: 09/29/21 04:41 Pravastatin Sodium (Pravastatin Sod 40 Mg Tab) 40 mg PO HS ALEX Stop: 09/29/21 20:59 Last Admin: 09/08/21 20:55 Dose: 40 mg Documented by: Sertraline HCl (Sertraline Hcl 100 Mg Tablet) 100 mg PO QPM ALEX Stop: 09/29/21 20:59 Last Admin: 09/08/21 20:55 Dose: 100 mg Documented by: Sertraline HCl (Sertraline Hcl 50 Mg Tablet) 50 mg PO QPM ALEX Stop: 09/29/21 20:59 Last Admin: 09/08/21 20:55 Dose: 50 mg Documented by: Sodium Chloride (Sodium Chlor 7% 4 Ml Neb) 4 ml NEB BIDR ALEX Stop: 09/29/21 06:59 Last Admin: 09/09/21 07:13 Dose: 4 ml Documented by: Umeclidinium/Vilanterol (Umeclidinium/Vilanterol 62.5/25mcg 7 Puffs/Inhaler) 1 puffs INH DAILY ALEX Stop: 09/29/21 08:59 Last Admin: 09/09/21 11:43 Dose: 1 puffs Documented by: Vitamin D (Cholecalciferol 1,000 Units 25 Mcg Tab) 2,000 units PO QAM ALEX Stop: 09/29/21 08:59 Last Admin: 09/09/21 08:22 Dose: 2,000 units Documented by: (1) Depression Active/Remission status: remission status unspecified Depression Type: major depressive disorder Major depression recurrence: unspecified whether recurrent Qualified Code(s): F32.9 - Major depressive disorder, single episode, unspecified (2) Bronchiectasis Bronchiectasis type: with acute exacerbation Qualified Code(s): J47.1 - Bronchiectasis with (acute) exacerbation (3) HTN (hypertension) Hypertension type: essential hypertension Qualified Code(s): I10 - Essential (primary) hypertension
[2021-09-09] MEDS: SERTRALINE HCL 50 MG TABLET PO SCH (21:20)
[2021-09-09] MEDS: PRAVASTATIN SOD 40 MG TAB PO SCH (21:20)
[2021-09-09] MEDS: SERTRALINE HCL 100 MG TABLET PO SCH (21:20)
[2021-09-10] MEDS: ALBUTEROL 0.083% NEBU SOLN 3 ML VIAL INH SCH ×2 (07:24→19:58)
[2021-09-10] MEDS: SODIUM CHLOR 7% 4 ML NEB NEB SCH ×2 (07:24→19:58)
[2021-09-10] MEDS: guaiFENesin/DEXTROM SYRUP 200MG/20MG 10ML UDC PO PRN (08:31)
[2021-09-10] MEDS: ADVANCED PROBIOTIC 1250 MG CAPSULE PO SCH (08:31)
[2021-09-10] MEDS: CHOLECALCIFEROL 1,000 UNITS 25 MCG TAB PO SCH (08:31)
[2021-09-10] MEDS: UMECLIDINIUM/VILANTEROL 62.5/25MCG 7 PUFFS/INHALER INH SCH (08:32)
--- NOTE | 2021-09-10 18:44 | Hospitalist Progress Note ---
Date of Service September 10, 2021 Assessment & Plan (1) SARS-CoV-2 positive: Plan: h/o COVID infection in Nov 2020, Fever appears to have resolved, afebrile in last 72 hours. Some cough still reported. Not requiring oxygen supplementation at this time and doing well. Not qualifying for remdesivir or steroids at this time. Cont supportive care efforts. (2) Hematuria: Plan: uncertain etiology, aspirin and DVT chemoprophylaxis held and urine has cleared. No clear reason for hematuria seen on CT a/p. Per Urology, recommended outpatient follow-up for cystoscopy. Patel catheter removed on 09/09 (3) Bronchiectasis: Plan: she is on chronic supplemental oxygen at home 2LPM. Multiple episodes of recurrent pneumonia this year. Evaluated by pulmonology this admission. There is no evidence of a COPD exacerbation. Pt is on Anoro Elilipta at home which is being continued. Mucinex BID recommended. Pulmonary toilet wt flutter valve, ambulate as tolerated. Chronic saline nebs and acetylcysteine nebs have been discontinued and should be stopped at discharge. Duoneb PRN, flutter valve and pulm vest if needed. (4) COPD exacerbation: Plan: No signs of Exacerbation (5) HTN (hypertension): Plan: controlled, cont home medications. (6) Depression: Plan: cont sertraline per home regimen. (7) Dementia: Plan: mentating at her baseline. (8) Weakness: Plan: Right Pubic Ring Fracture after a fall in Jul 2021. Evaluated by ortho last admission and advance WBAT. Weakness likely multifactorial related to current illness and hospitalization and multiple comorbidities including possible lung cancer diagnosis, cont PT/OT. (9) Pulmonary nodules: Plan: Pulmonary nodules--suspicious for neoplastic process, fabrice RUL mass which has significantly increased in size since Nov 2020 per previous notes. Bronchoscopy considered however, this was not done because family didn't want to be aggressive per record review. Palliative discussions took place last admission (early Aug 2021) and code status still remains full. Malignancy is a likely etiology and this should be addressed sooner rather than later to ensure treatment plans align [facility] patient and family's goals for her care. (10) DVT prophylaxis: Plan: SCDs, chemoprophylaxis held in setting of hematuria Full Code Dispo-to SNF when bed available. Aleyda Roscoe, DO [facility] Hospitalist Admission and Anticipated Discharge Date Admission Date: August 30, 2021 Subjective 81 yo F admitted wtih covid pneumonia. some coughing that is productive per nursing patient is pleasantly confused and is eating her dinner she reports feeling fine and denies pain or SOB. Review of Systems Review of Systems: At least ten systems were reviewed and negative except as indicated in HPI above. Physical Exam Physical Exam: CONSTITUTIONAL: WNWD, vitals as above, generally well- appearing, NAD, pleasantly confused. EYES: normal conjunctivae, no scleral icterus ENT: external ear and nose normal, MMM RESPIRATORY: clear to auscultation bilaterally, no crackles, rales or wheezes, normal respiratory effort CARDIOVASCULAR: regular rate and rhythm, S1 and 2 heard without murmurs, gallops or rubs, no JVD, no peripheral edema GASTROINTESTINAL: soft, nontender, ND MUSCULOSKELETAL: generalized weakness without gross focal deficits. SKIN: warm and dry NEUROLOGIC: CN 2-12 grossly intact, normal cognition, normal speech, no tremor PSYCHIATRIC: alert cooperative and oriented to self only, answering questions appropriately. Results & Data Results & Data ([facility]) Vital Signs (Past 12 Hours) Vital Signs Temp Pulse Pulse Resp BP BP Pulse Ox 09/10/21 14:47 37.1 C 16 115/68 97 09/10/21 14:25 94 H 09/10/21 11:00 37.1 C 89 18 104/70 104/70 94 09/10/21 08:35 36.8 C 97 H 16 114/75 94 09/10/21 07:24 96 H 18 98 09/10/21 07:00 94 H Medications Administered Current Inpatient Medications Acetaminophen (Acetaminophen 325 Mg Tab) 650 mg PO Q4H PRN PRN Reason: Pain or Fever Stop: 09/29/21 04:41 Last Admin: 09/07/21 20:35 Dose: 650 mg Documented by: Albuterol (Albuterol 0.083% Nebu Soln 3 Ml Vial) 2.5 mg INH BIDR [facility] Stop: 09/29/21 06:59 Last Admin: 09/10/21 07:24 Dose: 2.5 mg Documented by: Aspirin (Aspirin 81 Mg Ectab) 81 mg PO DAILY [facility] Stop: 09/29/21 08:59 Last Admin: 09/04/21 08:19 Dose: 81 mg Documented by: Diclofenac Sodium (Diclofenac Sod 1% Gel 100 Gm Tube) 1 gm EXT QID PRN PRN Reason: Pain Stop: 09/29/21 04:41 Enoxaparin Sodium (Enoxaparin Inj 40 Mg/0.4 Ml Syr) 40 mg SQ Q24H [facility] Stop: 09/29/21 08:59 Last Admin: 09/04/21 10:43 Dose: Not Given Documented by: Furosemide (Furosemide 20 Mg Tab) 20 mg PO DAILY PRN PRN Reason: Fluid Retention Stop: 09/29/21 04:41 Guaifenesin/Dextromethorphan (Guaifenesin/Dextrom Syrup 200mg/20mg 10ml Udc) 10 ml PO Q6H PRN PRN Reason: Cough Stop: 10/09/21 10:36 Last Admin: 09/10/21 08:31 Dose: 10 ml Documented by: Lactobacillus Acidoph/Casei/Rhamnos (Advanced Probiotic 1250 Mg Capsule) 2 cap PO DAILY [facility] Stop: 09/29/21 08:59 Last Admin: 09/10/21 08:31 Dose: 2 cap Documented by: Nitroglycerin (Nitroglycerin Sl 0.4 Mg/Tab Tab) 0.4 mg SL UD PRN PRN Reason: Chest Pain Stop: 09/29/21 04:41 Ondansetron HCl (Ondansetron Inj 2 Mg/Ml 2 Ml Vial) 4 mg IV Q6H PRN PRN Reason: Nausea Stop: 09/29/21 04:41 Polyethylene Glycol (Polyethylene (Miralax) 17 Gm Pack) 17 gm PO DAILY PRN PRN Reason: Constipation Stop: 09/29/21 04:41 Pravastatin Sodium (Pravastatin Sod 40 Mg Tab) 40 mg PO HS [facility] Stop: 09/29/21 20:59 Last Admin: 09/09/21 21:20 Dose: 40 mg Documented by: Sertraline HCl (Sertraline Hcl 100 Mg Tablet) 100 mg PO QPM [facility] Stop: 09/29/21 20:59 Last Admin: 09/09/21 21:20 Dose: 100 mg Documented by: Sertraline HCl (Sertraline Hcl 50 Mg Tablet) 50 mg PO QPM [facility] Stop: 09/29/21 20:59 Last Admin: 09/09/21 21:20 Dose: 50 mg Documented by: Sodium Chloride (Sodium Chlor 7% 4 Ml Neb) 4 ml NEB BIDR [facility] Stop: 09/29/21 06:59 Last Admin: 09/10/21 07:24 Dose: 4 ml Documented by: Umeclidinium/Vilanterol (Umeclidinium/Vilanterol 62.5/25mcg 7 Puffs/Inhaler) 1 puffs INH DAILY [facility] Stop: 09/29/21 08:59 Last Admin: 09/10/21 08:32 Dose: 1 puffs Documented by: Vitamin D (Cholecalciferol 1,000 Units 25 Mcg Tab) 2,000 units PO QAM [facility] Stop: 09/29/21 08:59 Last Admin: 09/10/21 08:31 Dose: 2,000 units Documented by: (1) Bronchiectasis Bronchiectasis type: with acute exacerbation Qualified Code(s): J47.1 - Bronchiectasis with (acute) exacerbation (2) HTN (hypertension) Hypertension type: essential hypertension Qualified Code(s): I10 - Essential (primary) hypertension (3) Depression Depression Type: major depressive disorder Major depression recurrence: unspecified whether recurrent Active/Remission status: remission status unspecified Qualified Code(s): F32.9 - Major depressive disorder, single episode, unspecified
[2021-09-10] MEDS: PRAVASTATIN SOD 40 MG TAB PO SCH (20:50)
[2021-09-10] MEDS: SERTRALINE HCL 100 MG TABLET PO SCH (20:50)
[2021-09-10] MEDS: SERTRALINE HCL 50 MG TABLET PO SCH (20:50)
[2021-09-11] MEDS: ALBUTEROL 0.083% NEBU SOLN 3 ML VIAL INH SCH ×2 (07:33→18:14)
[2021-09-11] MEDS: SODIUM CHLOR 7% 4 ML NEB NEB SCH ×2 (07:34→18:14)
[2021-09-11] MEDS: guaiFENesin/DEXTROM SYRUP 200MG/20MG 10ML UDC PO PRN (08:25)
[2021-09-11] MEDS: ADVANCED PROBIOTIC 1250 MG CAPSULE PO SCH (08:25)
[2021-09-11] MEDS: UMECLIDINIUM/VILANTEROL 62.5/25MCG 7 PUFFS/INHALER INH SCH (08:25)
[2021-09-11] MEDS: CHOLECALCIFEROL 1,000 UNITS 25 MCG TAB PO SCH (08:26)
--- NOTE | 2021-09-11 08:51 | Palliative Care Consultation ---
Date of Consultation September 11, 2021 Assessment & Plan (1) Palliative care encounter: Ms. Gonzáles is an 81 year old female who presented to the [facility] from home and was transported by her daughter with fevers. She was recently admitted to [facility] on July 2021. Additional PMH includes: COVID-19 infection in November 2020, HTN, AAA, HLD, senile degeneration of the brain, depression, CKD3, 70 pack year smoking history and has abstained from smoking for the past 3 months. She is unvaccinated against future COVID-19 infection and it is suspected that she may have a reinfection since she is unvaccinated. Last admission, a chest CT was performed and a RUL nodule was discovered; however, after a pulmonary consultation, the location of the nodule is inaccessible via bronch to obtain a biopsy. A PET scan was recommended; however, highly suspicious of malignancy. Palliative Medicine was consulted to discuss overall goals of care and code status with the patient and family. I met with Ms. Gonzáles at her bedside in a covid isolation room. She was sitting in her bedside chair in no apparent distress and was pleasant and able to hold conversation; however, she was having some confusion and not completely reliable for explanation of what brought her into the hospital. She was able to say that she has 5 kids. She explained that her , Fazal, 2 months ago, which I confirmed that Michelle's in November 2020. I called her daughter Laura at [phone] who is her granddaughter and left her a VM. I also called her other daughter Mary at [phone]. Historically, it has been harder to get in touch with family. From previous encounters, there is not a designated POA between the 5 kids. I was able to talk with Sol, the patients granddaughter, who called back. She said that her mother is working and her aunt, Mary, is sick and unable to talk. She explained that things have been harder at home especially after her pelvic fracture. She has taken her to the PCP to address gait instability. We did discuss overall disease process of dementia and inability to retain information and safety tools for ambulation. We also discussed the undiagnosed underlying possible malignancy and other complicating factors. We did discuss Hospice and its capabilities and explained how it could benefit their loved one with its benefits. Sol does not have decision making capabilities, but will relay some of this information. A sister [place] arriving from [place] who volunteers at a hospital is flying into town to help, Mary is sick and does not have a voice so can't talk on the phone, and Laura is at work. They are considering SNF (buy some time to arrange things at home from a caregiver standpoint) vs Home Health (They had [facility] before). Both options they are considering a transition to hospice. I did discuss code status and family will call me back. Mary and Laura share POA. We discussed code status and she will relay the information regarding Full code vs DNR/DNI. Palliative will follow. (2) Fever: Fever type: unspecified Qualified Code(s): R50.9 - Fever, unspecified (3) Hematuria: (4) Weakness: History of Present Illness Reason for Consultation: Goals of care Requesting Physician: Dr. Rojas Attending Physician: Marcia Hirsch MD History of Present Illness Ms. Gonzáles is an 81 year old female who presented to the [facility] with fevers and a COPD exacerbation and hypoxia. Additional PMH includes: COVID-19 infection in November 2020, HTN, AAA, HLD, senile degeneration of the brain, depression, CKD3, 70 pack year smoking history and has abstained from smoking for the past 2 months. She is unvaccinated against future COVID-19 infection. On arrival, a chest CT was performed and a RUL nodule was discovered. The family has been deciding whether they would like additional work up, including a bronchoscopy to investigate the possibility of malignancy. Palliative Medicine was consulted to discuss overall goals of care with the patient and family. Thanks for re-involving Palliative Medicine with this patient. Allergies Allergy/AdvReac Type Severity Reaction Status Date / Time No Known Allergies Allergy Verified 08/29/21 17:36 Home Medications Medication Instructions Recorded Confirmed Type pravastatin 40 mg tablet 40 mg PO HS 09/21/19 08/29/21 History sertraline 100 mg tablet 100 mg PO QPM 09/21/19 08/29/21 History sertraline 50 mg tablet 50 mg PO QPM 09/21/19 08/29/21 History albuterol sulfate 2.5 mg INHALATION DIRECTED 11/01/20 08/29/21 History cholecalciferol (vitamin D3) 50 50 mcg PO QAM 02/14/21 08/29/21 History mcg (2,000 unit) capsule (Vitamin D3) diclofenac sodium 1 % topical gel 1 ea TOPICAL QID PRN 02/14/21 08/29/21 History guaifenesin 600 mg tablet, 1,200 mg PO BID 02/14/21 08/29/21 History extended release 12 hr (Mucinex) furosemide 20 mg tablet 20 mg PO DAILY PRN 08/14/21 08/29/21 History umeclidinium 62.5 mcg-vilanterol 1 ea INHALATION DAILY #14 ea 08/17/21 08/29/21 Rx 25 mcg/actuation powdr for inhalation (Anoro Ellipta) L.acidop,casei,lactis,rham-B.lact,jackie 2 cap PO DAILY 7 Days #14 cap 08/24/21 08/29/21 Rx 625 mg (10 billion cell) capsule (Advanced Probiotic) amoxicillin 875 mg-potassium 1 tab PO BIDM 7 Days #14 tab 08/24/21 08/29/21 Rx clavulanate 125 mg tablet (Augmentin) acetylcysteine 200 mg/mL (20 %) 5 ml INHALATION Q12H 08/29/21 08/29/21 History solution aspirin 81 mg tablet,delayed 81 mg PO DAILY 08/29/21 08/29/21 History release sodium chloride 7 % for 4 ml NEB BID 08/29/21 08/29/21 History nebulization Patient History Medical History (Updated 09/11/21 @ 08:47 by DAGO Ray) AAA (abdominal aortic aneurysm) "s/p repair of ruptured AAA in 2010" Bronchiectasis CKD (chronic kidney disease), stage III COPD (chronic obstructive pulmonary disease) Dementia Depression Female stress incontinence H/O: CVA (cerebrovascular accident) Hip fracture History of COVID-19 History of pulmonary embolism HTN (hypertension) Hyperlipidemia Palliative care encounter Palliative care encounter Peripheral vascular disease Pulmonary nodule Recurrent pneumonia SARS-CoV-2 positive Tobacco use disorder Weakness Surgical History S/P AAA repair "s/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 Desir with bifurcated graft, left femoral thromboendarterectomy with patch angioplasty, right femoral thromboendarterectomy, and right iliofemoral bypass" S/P laparotomy "10/16/11- abdominal exploration, wound vac placement; 10/18/11- abdominal washout and closure. " S/P ORIF (open reduction internal fixation) fracture "left hip" Family History Other Diabetes Heart disease Social History Smoking Status: Unknown if ever smoked Tobacco Type: Cigarettes Hx Alcohol Use: No (Unknown) Preferred Language: Irish Communication Ability: Impaired Coastal Tug Mate Required: No Beliefs That Will Affect Care: None marital status: 2 daughters marital status details: of COVID in Nov 2020 Current Living Situation: Family Current Living Situation Comment: Lives w/ daughter Feels Safe at Home: Yes Safety Concerns: Feels Safe At This Time Assistive Devices: Glasses Assistive Devices Comment: Wears 2L chronic Review of Systems Review of Systems: [employer] Assessment Plan: Pain: 0/3 Nausea: 0/3 Anxiety: 1/3 by observation SOB: 0/3 Lack of Appetite: 1/3 palliative performance scale: 30% Physical Exam Constitutional: + frail appearing, cooperative and comfortable ENMT: Mouth: + dry oral mucous membranes Respiratory: normal respiratory effort and + cough Auscultation: + diminished lung sounds Cardiovascular: Rate/Rhythm: regular rate and regular rhythm Heart Sounds: normal S1 and normal S2 Extremities: normal capillary refill; no edema Gastrointestinal (Abdomen): Inspection/Auscultation: abdomen normal to inspection Percussion/Palpation: abdomen soft Skin: + ecchymosis and + pallor Psychiatric: Orientation: alert and oriented to person Insight: + limited insight Judgement: + limited judgement Results & Data ([facility]) Vital Signs (Past 12 Hours) Vital Signs Temp Pulse Pulse Resp BP Pulse Ox 09/11/21 08:15 36.5 C 93 H 16 106/66 92 09/11/21 07:35 91 H 18 98 09/11/21 07:00 86 09/11/21 03:27 36.9 C 97 H 18 106/71 100 09/10/21 22:54 37.1 C 101 H 18 100/64 93 10/24/21 22:11 99 H PG Care Time/CCT Total # of Minutes Spent Total Time Spent with Patient: Total time spent is greater than 50% in coordination of care (as documented) at patient's floor/unit and/or counseling patient: 100 minutes with > 50% of that time spent assessing the patient, discussing goals of care, and collaborating with IDT Coding Level of Care Code 49440 Initial Inpt Care Lvl 3 Diagnoses Palliative care encounter Z51.5 Fever R50.9 Fever type: unspecified Hematuria R31.9 Weakness R53.1 Time Spent (min) 100
[2021-09-11] MEDS: ACETAMINOPHEN 325 MG TAB PO PRN (11:20)
--- NOTE | 2021-09-11 12:39 | Hospitalist Progress Note ---
Date of Service September 11, 2021 Assessment & Plan (1) SARS-CoV-2 positive: Plan: h/o COVID infection in Nov 2020, Remains on room air. Continue with supportive management. 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 Follow-up with pulmonary medicine as an outpatient. (2) Hematuria: Plan: CT ABD:The bladder is largely decompressed around a Patel. Hyperdense fluid is suggested within the bladder lumen and may represent blood clots, and there is also mild pericystic infiltration. Correlate with clinical findings and urinalysis. There is dependent airspace consolidation with tree-in-bud airspace opacities and mucous plugging at the lung bases. Correlate clinically for evidence of pneumonia/aspiration pneumonitis. 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 Mild infiltration around the aorta is similar to previous. There is increasing infiltration around the right iliac bypass. This is of indeterminant etiology/significance, and clinical correlation will be required. There are subacute/healing right pubic ring fractures. -Hold Aspirin for now Appreciate Urology Input Amatory appears to be better. Hemoglobin is stable. Patient will need voiding trial prior to discharge. Needs outpatient cystoscopy (3) Bronchiectasis: Plan: she is on chronic supplemental oxygen at home 2LPM. Multiple episodes of recurrent pneumonia this year. Evaluated by pulmonology this admission. There is no evidence of a COPD exacerbation. Pt is on Anoro Elilipta at home which is being continued. Mucinex BID recommended. Pulmonary toilet wtih flutter valve, ambulate as tolerated. Continue on bronchodilators. (4) COPD exacerbation: Plan: No signs of Exacerbation (5) HTN (hypertension): Plan: controlled, cont home medications. (6) Depression: Plan: cont sertraline per home regimen. (7) Dementia: Plan: mentating at her baseline. (8) Weakness: Plan: Right Pubic Ring Fracture after a fall in Jul 2021. Evaluated by ortho last admission and advance WBAT. Weakness likely multifactorial related to current illness and hospitalization and multiple comorbidities including possible lung cancer diagnosis, cont PT/OT. (9) Pulmonary nodules: Plan: Pulmonary nodules--suspicious for neoplastic process, fabrice RUL mass which has significantly increased in size since Nov 2020 per previous notes. Bronchoscopy considered however, this was not done because family didn't want to be aggressive per record review. Palliative discussions took place last admission (early Aug 2021) and code status still remains full. Malignancy is a likely etiology. Palliative medicine has been consulted. Plans are to possible discharge to hospice. Ongoing discussions among family and team. (10) DVT prophylaxis: Plan: SCDs, chemoprophylaxis held in setting of hematuria Full Code Dispo-to SNF when bed available. Admission and Anticipated Discharge Date Admission Date: August 30, 2021 Subjective Patient is resting comfortably. She is awake and alert. Not oriented. Not appear to be in any distress. Hemodynamically doing okay. Review of system is negative. Review of Systems Review of Systems: All systems reviewed & are unremarkable except as noted in HPI & below Physical Exam Physical Exam: General: A&Ox3 HENT: NCAT, MMM, EOMI Eyes: PERRLA Neck: Supple, normal range of motion CVS: normal rate and rhythm Resp: b/l coarse breath sounds Abdomen: Soft, ND/NT Extremities: No c/c/e Neuro: face symmetric, could not assess as patient did not follow command Skin: warm and dry, no rashes/lesions/errythema MSK: normal ROM, no joint swelling/erythema Catheter in place Results & Data Results & Data ([facility]) Vital Signs (Past 12 Hours) Vital Signs Temp Pulse Pulse Resp BP BP Pulse Ox 09/11/21 11:15 37.5 C 69 16 114/68 94 09/11/21 08:15 36.5 C 93 H 16 106/66 92 09/11/21 07:35 91 H 18 98 09/11/21 07:00 86 09/11/21 03:27 36.9 C 97 H 18 106/71 100 (1) Bronchiectasis Bronchiectasis type: with acute exacerbation Qualified Code(s): J47.1 - Bronchiectasis with (acute) exacerbation (2) HTN (hypertension) Hypertension type: essential hypertension Qualified Code(s): I10 - Essential (primary) hypertension (3) Depression Depression Type: major depressive disorder Major depression recurrence: unspecified whether recurrent Active/Remission status: remission status unspecified Qualified Code(s): F32.9 - Major depressive disorder, single episode, unspecified
[2021-09-11] MEDS: SERTRALINE HCL 100 MG TABLET PO SCH (21:15)
[2021-09-11] MEDS: PRAVASTATIN SOD 40 MG TAB PO SCH (21:15)
[2021-09-11] MEDS: SERTRALINE HCL 50 MG TABLET PO SCH (21:15)
[2021-09-12 07:27] LABS: Basophils # (auto) 0.02 K/uL (0-0.2); Basophils % (auto) 0.3 %; Eosinophils # (auto) 0.17 K/uL (0-0.5); Eosinophils % (auto) 2.1 %; Hematocrit (blood only) 29.1 % (37-47); Hemoglobin 9.4 g/dL (12.0-16.0); Immature Granulocytes # (auto) 0.03 K/uL (0.00-0.02); Immature Granulocytes % (auto) 0.4 %; Lymphocytes # (auto) 0.99 K/uL (1.2-3.4); Lymphocytes % (auto) 12.4 %; Mean Corpuscular Hemoglobin 29.7 pg (25-34); Mean Corpuscular Hgb Conc 32.3 g/dL (32-36); Mean Corpuscular Volume 92.1 fL (80-100); Mean Platelet Volume 9.7 fL (7.4-10.4); Monocytes # (auto) 0.46 K/uL (0.11-0.59); Monocytes % (auto) 5.8 %; Neutrophils # (auto) 6.31 K/uL (1.4-6.5); Platelet Count 223 K/uL (130-400); RDW Coefficient of Variation 15.1 % (11.5-14.5); RDW Standard Deviation 50.6 fL (36.4-46.3); Red Blood Count 3.16 M/uL (4.2-5.4); White Blood Count 7.98 K/uL (4.8-10.8)
[2021-09-12] MEDS: ALBUTEROL 0.083% NEBU SOLN 3 ML VIAL INH SCH ×2 (07:34→20:29)
[2021-09-12] MEDS: SODIUM CHLOR 7% 4 ML NEB NEB SCH ×2 (07:36→20:24)
[2021-09-12 07:56] LABS: BUN Creatinine Ratio 25.5 (10-20); Calcium 8.9 mg/dl (8.5-10.1); Creatinine Clr Calc Pharmacy 46.8 ml/min; Est GFR (African American) 90.4 ml/min; Potassium 4.3 mmol/L (3.5-5.1)
[2021-09-12] MEDS: CHOLECALCIFEROL 1,000 UNITS 25 MCG TAB PO SCH (08:07)
[2021-09-12] MEDS: UMECLIDINIUM/VILANTEROL 62.5/25MCG 7 PUFFS/INHALER INH SCH (08:07)
[2021-09-12] MEDS: ADVANCED PROBIOTIC 1250 MG CAPSULE PO SCH (08:07)
--- NOTE | 2021-09-12 10:31 | Palliative Care Progress Note ---
Date of Service September 12, 2021 Assessment & Plan (1) Palliative care encounter: Plan: I received a call from the patients daughter, Laura and I was able to talk to her at length for 20 minutes. She was able to have an internal family meeting with the other siblings and family members last evening regarding her code status and all were in agreement to transition her to a DNR/DNI, which is now reflected in the computer and communicated to IDT. Should she have an overall decline, they would not want to escalate her care to ICU level, rather focus on a transition to [employer] if that would occur. The overall goal remains consistent with previous discussion to transition to SNF for some short term gentle rehab and then depending on how things progress, transition to a more hospice approach to her care at home with additional family support. Palliative will be involved for any future discussions necessary. For now, palliative will follow peripherally as placement at a SNF is arranged. (2) Fever: (3) Hematuria: (4) Weakness: Admission and Anticipated Discharge Date Admission Date: August 30, 2021 Subjective Patient awake and looking at me through the window before I went into the room in no apparent distress. See below for overall goals conversation with the patients family. Review of Systems Review of Systems: [place] System Assessment Plan: Pain: 0/3 Nausea: 0/3 Anxiety: 1/3 by observation SOB: 0/3 Lack of Appetite: 1/3 palliative performance scale: 30% Physical Exam Constitutional: + frail appearing, cooperative and comfortable ENMT: Mouth: + dry oral mucous membranes Respiratory: normal respiratory effort and + cough Auscultation: + diminished lung sounds Cardiovascular: Rate/Rhythm: regular rate and regular rhythm Heart Sounds: normal S1 and normal S2 Extremities: normal capillary refill; no edema Gastrointestinal (Abdomen): Inspection/Auscultation: abdomen normal to inspection Percussion/Palpation: abdomen soft Skin: + ecchymosis and + pallor Psychiatric: Orientation: alert and oriented to person Insight: + limited insight Judgement: + limited judgement Results & Data ([facility]) Vital Signs (Past 12 Hours) Vital Signs Temp Pulse Resp BP Pulse Ox 09/12/21 07:45 36.9 C 92 H 19 95/65 L 100 09/12/21 07:36 93 H 18 95 09/12/21 04:21 36.5 C 96 H 18 110/70 100 09/12/21 00:08 37.1 C 93 H 18 101/66 94 PG Care Time/CCT Total # of Minutes Spent Total Time Spent with Patient: Total time spent is greater than 50% in coordination of care (as documented) at patient's floor/unit and/or counseling patient: 35 minutes with > 50% of that time spent assessing the patient, discussing overall goals of care and code status with family, and collaborating with IDT. Coding Level of Care Code 13097 Subseq Hosp Care Lvl 3 Diagnoses Palliative care encounter Z51.5 Fever R50.9 Fever type: unspecified Hematuria R31.9 Weakness R53.1 Time Spent (min) 35 (1) Fever Fever type: unspecified Qualified Code(s): R50.9 - Fever, unspecified
--- NOTE | 2021-09-12 14:41 | Hospitalist Progress Note ---
Date of Service September 12, 2021 Assessment & Plan (1) SARS-CoV-2 positive: Plan: h/o COVID infection in Nov 2020, Remains on room air. Continue with supportive management. Was on 2 L of oxygen overnight. Continue with [employer] inhalers. Follow-up with pulmonary medicine as an outpatient. Family is deciding between home versus [facility] facility. Care management is intact to the family. Numbness also updated by me on 09/11. (2) Hematuria: Plan: CT ABD:The bladder is largely decompressed around a Patel. Hyperdense fluid is suggested within the bladder lumen and may represent blood clots, and there is also mild pericystic infiltration. Correlate with clinical findings and urinalysis. There is dependent airspace consolidation with tree-in-bud airspace opacities and mucous plugging at the lung bases. Correlate clinically for evidence of pneumonia/aspiration pneumonitis. 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 Mild infiltration around the aorta is similar to previous. There is increasing infiltration around the right iliac bypass. This is of indeterminant etiology/significance, and clinical correlation will be required. There are subacute/healing right pubic ring fractures. -Hold Aspirin for now Appreciate Urology Input Amatory appears to be better. Hemoglobin is stable. Patient will need voiding trial prior to discharge. Needs outpatient cystoscopy (3) Bronchiectasis: Plan: she is on chronic supplemental oxygen at home 2LPM. Multiple episodes of recurrent pneumonia this year. Evaluated by pulmonology this admission. There is no evidence of a COPD exacerbation. Pt is on Anoro Elilipta at home which is being continued. Mucinex BID recommended. Pulmonary toilet wtih flutter valve, ambulate as tolerated. Continue on bronchodilators. (4) COPD exacerbation: Plan: No signs of Exacerbation (5) HTN (hypertension): Plan: controlled, cont home medications. (6) Depression: Plan: cont sertraline per home regimen. (7) Dementia: Plan: mentating at her baseline. (8) Weakness: Plan: Right Pubic Ring Fracture after a fall in Jul 2021. Evaluated by ortho last admission and advance WBAT. Weakness likely multifactorial related to current illness and hospitalization and multiple comorbidities including possible lung cancer diagnosis, cont PT/OT. (9) Pulmonary nodules: Plan: Pulmonary nodules--suspicious for neoplastic process, fabrice RUL mass which has significantly increased in size since Nov 2020 per previous notes. Bronchoscopy considered however, this was not done because family didn't want to be aggressive per record review. Palliative discussions took place last admission (early Aug 2021) and code status still remains full. Malignancy is a likely etiology. Palliative medicine has been consulted. Plans are to possible discharge to hospice. Ongoing discussions among family and team. (10) DVT prophylaxis: Plan: SCDs, chemoprophylaxis held in setting of hematuria Full Code Dispo-Home versus [facility] facility Admission and Anticipated Discharge Date Admission Date: August 30, 2021 Subjective Awake and alert. Does not appear to be in any distress. Currently on room air. Was on 2 L of nasal cannula overnight. Review of system is negative. Review of Systems Review of Systems: All systems reviewed & are unremarkable except as noted in HPI & below Physical Exam Physical Exam: General: Awake and alert HENT: NCAT, MMM, EOMI Eyes: PERRLA Neck: Supple, normal range of motion CVS: normal rate and rhythm Resp: b/l coarse breath sounds Abdomen: Soft, ND/NT Extremities: No c/c/e Neuro: face symmetric, could not assess as patient did not follow command Skin: warm and dry, no rashes/lesions/errythema MSK: normal ROM, no joint swelling/erythema Catheter in place Results & Data Results & [facility] ([facility]) Vital Signs (Past 12 Hours) Vital Signs Temp Pulse Resp BP Pulse Ox 09/12/21 11:56 37.3 C 102 H 17 95/59 L 93 09/12/21 07:45 36.9 C 92 H 19 95/65 L 100 09/12/21 07:36 93 H 18 95 09/12/21 04:21 36.5 C 96 H 18 110/70 100 (1) Bronchiectasis Bronchiectasis type: with acute exacerbation Qualified Code(s): J47.1 - Bronchiectasis with (acute) exacerbation (2) HTN (hypertension) Hypertension type: essential hypertension Qualified Code(s): I10 - Essential (primary) hypertension (3) Depression Depression Type: major depressive disorder Major depression recurrence: unspecified whether recurrent Active/Remission status: remission status unspecified Qualified Code(s): F32.9 - Major depressive disorder, single episode, unspecified
[2021-09-12] MEDS: PRAVASTATIN SOD 40 MG TAB PO SCH (20:58)
[2021-09-12] MEDS: SERTRALINE HCL 100 MG TABLET PO SCH (20:58)
[2021-09-12] MEDS: SERTRALINE HCL 50 MG TABLET PO SCH (20:58)
[2021-09-13] MEDS: ALBUTEROL 0.083% NEBU SOLN 3 ML VIAL INH SCH ×2 (07:16→19:30)
[2021-09-13] MEDS: SODIUM CHLOR 7% 4 ML NEB NEB SCH ×2 (07:17→19:30)
[2021-09-13] MEDS: CHOLECALCIFEROL 1,000 UNITS 25 MCG TAB PO SCH (08:30)
[2021-09-13] MEDS: ADVANCED PROBIOTIC 1250 MG CAPSULE PO SCH (08:30)
[2021-09-13] MEDS: UMECLIDINIUM/VILANTEROL 62.5/25MCG 7 PUFFS/INHALER INH SCH (08:30)
--- NOTE | 2021-09-13 17:20 | Hospitalist Progress Note ---
Date of Service September 13, 2021 Assessment & Plan (1) SARS-CoV-2 positive: Plan: h/o COVID infection in Nov 2020, Remains on room air. Continue with supportive management. Was on 2 L of oxygen overnight. Continue with [employer] inhalers. Follow-up with pulmonary medicine as an outpatient. Family is deciding [facility] versus [facility]. Care management is intact to the family. Numbness also updated by me on 09/11. Remains asymptomatic from COVID-19 infection Has been taken out from isolation Awaiting placement (2) Hematuria: Plan: CT ABD:The bladder is largely decompressed around a Patel. Hyperdense fluid is suggested within the bladder lumen and may represent blood clots, and there is also mild pericystic infiltration. Correlate with clinical findings and urinalysis. There is dependent airspace consolidation with tree-in-bud airspace opacities and mucous plugging at the lung bases. Correlate clinically for evidence of pneumonia/aspiration pneumonitis. 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 Mild infiltration around the aorta is similar to previous. There is increasing infiltration around the right iliac bypass. This is of indeterminant etiology/significance, and clinical correlation will be required. There are subacute/healing right pubic ring fractures. -Hold Aspirin for now Appreciate Urology Input Amatory appears to be better. Hemoglobin is stable. Patient will need voiding trial prior to discharge. Needs outpatient cystoscopy No more hematuria noted (3) Bronchiectasis: Plan: she is on chronic supplemental oxygen at home 2LPM. Multiple episodes of recurrent pneumonia this year. Evaluated by pulmonology this admission. There is no evidence of a COPD exacerbation. Pt is on Anoro Elilipta at home which is being continued. Mucinex BID recommended. Pulmonary toilet wtih flutter valve, ambulate as tolerated. Continue on bronchodilators. Denies any symptoms at rest (4) COPD exacerbation: Plan: No signs of Exacerbation (5) HTN (hypertension): Plan: controlled, cont home medications. (6) Depression: Plan: cont sertraline per home regimen. (7) Dementia: Plan: mentating at her baseline. (8) Weakness: Plan: Right Pubic Ring Fracture after a fall in Jul 2021. Evaluated by ortho last admission and advance WBAT. Weakness likely multifactorial related to current illness and hospitalization and multiple comorbidities including possible lung cancer diagnosis, cont PT/OT. (9) Pulmonary nodules: Plan: Pulmonary nodules--suspicious for neoplastic process, fabrice RUL mass which has significantly increased in size since Nov 2020 per previous notes. Bronchoscopy considered however, this was not done because family didn't want to be aggressive per record review. Palliative discussions took place last admission (early Aug 2021) and code status still remains full. Malignancy is a likely etiology. Palliative medicine has been consulted. Plans are to possible discharge to hospice. Ongoing discussions among family and team. (10) DVT prophylaxis: Plan: SCDs, chemoprophylaxis held in setting of hematuria Full Code Dispo-Home versus prison facility Admission and Anticipated Discharge Date Admission Date: August 30, 2021 Subjective 09/13/2021 The patient was seen and examined in medical telemetry unit She has been feeling much better denies any symptoms Remains weak and lethargic Review of Systems Review of Systems: All systems reviewed and are unremarkable except as noted below Physical Exam Physical Exam: Lying in bed comfortably Constitutional: + thin; not ill appearing Eyes: PERRL, conjunctivae normal, anicteric sclerae ENMT: external ear and nose normal, oropharynx normal Neck: trachea midline, no thyromegaly Respiratory: + cough; no respiratory distress Auscultation: + diminished lung sounds and + crackles (Crackles bibasally) Cardiovascular: Rate/Rhythm: regular rate and regular rhythm; not tachycardic Heart Sounds: normal S1 and normal S2; no murmur Extremities: no edema Gastrointestinal (Abdomen): Inspection/Auscultation: normal bowel sounds; abdomen not distended Percussion/Palpation: abdomen soft; abdomen nontender Musculoskeletal: No acute arthritis in any joint Neurologic: Alert, awake and oriented x3. Generally weak but no focal sensory or motor deficit appreciated Results & Data Results & Data ([facility]) Vital Signs (Past 12 Hours) Vital Signs Temp Pulse Pulse Resp BP Pulse Ox 09/13/21 16:15 92 H 09/13/21 14:49 37.1 C 91 H 19 107/68 96 09/13/21 12:29 37.4 C 93 H 17 116/69 94 09/13/21 08:33 37.1 C 91 H 17 103/66 94 09/13/21 08:00 89 09/13/21 07:19 94 H 94 Medications Administered Current Inpatient Medications Acetaminophen (Acetaminophen 325 Mg Tab) 650 mg PO Q4H PRN PRN Reason: Pain or Fever Stop: 09/29/21 04:41 Last Admin: 09/11/21 11:20 Dose: 650 mg Documented by: Albuterol (Albuterol 0.083% Nebu Soln 3 Ml Vial) 2.5 mg INH BIDR ALEX Stop: 09/29/21 06:59 Last Admin: 09/13/21 07:16 Dose: 2.5 mg Documented by: Aspirin (Aspirin 81 Mg Ectab) 81 mg PO DAILY ALEX Stop: 09/29/21 08:59 Last Admin: 09/04/21 08:19 Dose: 81 mg Documented by: Diclofenac Sodium (Diclofenac Sod 1% Gel 100 Gm Tube) 1 gm EXT QID PRN PRN Reason: Pain Stop: 09/29/21 04:41 Enoxaparin Sodium (Enoxaparin Inj 40 Mg/0.4 Ml Syr) 40 mg SQ Q24H ALEX Stop: 09/29/21 08:59 Last Admin: 09/04/21 10:43 Dose: Not Given Documented by: Furosemide (Furosemide 20 Mg Tab) 20 mg PO DAILY PRN PRN Reason: Fluid Retention Stop: 09/29/21 04:41 Guaifenesin/Dextromethorphan (Guaifenesin/Dextrom Syrup 200mg/20mg 10ml Udc) 10 ml PO Q6H PRN PRN Reason: Cough Stop: 10/09/21 10:36 Last Admin: 09/11/21 08:25 Dose: 10 ml Documented by: Lactobacillus Acidoph/Casei/Rhamnos (Advanced Probiotic 1250 Mg Capsule) 2 cap PO DAILY ALEX Stop: 09/29/21 08:59 Last Admin: 09/13/21 08:30 Dose: 2 cap Documented by: Nitroglycerin (Nitroglycerin Sl 0.4 Mg/Tab Tab) 0.4 mg SL UD PRN PRN Reason: Chest Pain Stop: 09/29/21 04:41 Ondansetron HCl (Ondansetron Inj 2 Mg/Ml 2 Ml Vial) 4 mg IV Q6H PRN PRN Reason: Nausea Stop: 09/29/21 04:41 Polyethylene Glycol (Polyethylene (Miralax) 17 Gm Pack) 17 gm PO DAILY PRN PRN Reason: Constipation Stop: 09/29/21 04:41 Pravastatin Sodium (Pravastatin Sod 40 Mg Tab) 40 mg PO HS ALEX Stop: 09/29/21 20:59 Last Admin: 09/12/21 20:58 Dose: 40 mg Documented by: Sertraline HCl (Sertraline Hcl 100 Mg Tablet) 100 mg PO QPM ALEX Stop: 09/29/21 20:59 Last Admin: 09/12/21 20:58 Dose: 100 mg Documented by: Sertraline HCl (Sertraline Hcl 50 Mg Tablet) 50 mg PO QPM ALEX Stop: 09/29/21 20:59 Last Admin: 09/12/21 20:58 Dose: 50 mg Documented by: Sodium Chloride (Sodium Chlor 7% 4 Ml Neb) 4 ml NEB BIDR ALEX Stop: 09/29/21 06:59 Last Admin: 09/13/21 07:17 Dose: 4 ml Documented by: Umeclidinium/Vilanterol (Umeclidinium/Vilanterol 62.5/25mcg 7 Puffs/Inhaler) 1 puffs INH DAILY ALEX Stop: 09/29/21 08:59 Last Admin: 09/13/21 08:30 Dose: 1 puffs Documented by: Vitamin D (Cholecalciferol 1,000 Units 25 Mcg Tab) 2,000 units PO QAM ALEX Stop: 09/29/21 08:59 Last Admin: 09/13/21 08:30 Dose: 2,000 units Documented by: (1) Bronchiectasis Bronchiectasis type: with acute exacerbation Qualified Code(s): J47.1 - Bronchiectasis with (acute) exacerbation (2) HTN (hypertension) Hypertension type: essential hypertension Qualified Code(s): I10 - Essential (primary) hypertension (3) Depression Depression Type: major depressive disorder Major depression recurrence: unspecified whether recurrent Active/Remission status: remission status unspecified Qualified Code(s): F32.9 - Major depressive disorder, single episode, unspecified
[2021-09-13] MEDS: SERTRALINE HCL 100 MG TABLET PO SCH (20:14)
[2021-09-13] MEDS: SERTRALINE HCL 50 MG TABLET PO SCH (20:14)
[2021-09-13] MEDS: PRAVASTATIN SOD 40 MG TAB PO SCH (20:14)
[2021-09-14] MEDS: SODIUM CHLOR 7% 4 ML NEB NEB SCH ×3 (07:48→19:59)
[2021-09-14] MEDS: ALBUTEROL 0.083% NEBU SOLN 3 ML VIAL INH SCH ×3 (07:48→19:47)
[2021-09-14] MEDS: CHOLECALCIFEROL 1,000 UNITS 25 MCG TAB PO SCH (09:28)
[2021-09-14] MEDS: ASPIRIN 81 MG ECTAB PO SCH (09:28)
[2021-09-14] MEDS: ADVANCED PROBIOTIC 1250 MG CAPSULE PO SCH (09:28)
--- NOTE | 2021-09-14 10:33 | Hospitalist Progress Note ---
Date of Service September 14, 2021 Assessment & Plan (1) SARS-CoV-2 positive: Plan: h/o COVID infection in Nov 2020, Remains on room air. Continue with supportive management. Was on 2 L of oxygen overnight. 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 Follow-up with pulmonary medicine as an outpatient. Family is deciding between home versus senior care facility. Care management is intact to the family. Numbness also updated by me on 09/11. Remains asymptomatic from COVID-19 infection Has been taken out from isolation Awaiting placement (2) Hematuria: Plan: CT ABD:The bladder is largely decompressed around a Patel. Hyperdense fluid is suggested within the bladder lumen and may represent blood clots, and there is also mild pericystic infiltration. Correlate with clinical findings and urinalysis. There is dependent airspace consolidation with tree-in-bud airspace opacities and mucous plugging at the lung bases. Correlate clinically for evidence of pneumonia/aspiration pneumonitis. 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 Mild infiltration around the aorta is similar to previous. There is increasing infiltration around the right iliac bypass. This is of indeterminant etiology/significance, and clinical correlation will be required. There are subacute/healing right pubic ring fractures. -Hold Aspirin for now Appreciate Urology Input Amatory appears to be better. Hemoglobin is stable. Patient will need voiding trial prior to discharge. Needs outpatient cystoscopy No more hematuria noted and catheter has been taken out She has been voiding normally (3) Bronchiectasis: Plan: she is on chronic supplemental oxygen at home 2LPM. Multiple episodes of recurrent pneumonia this year. Evaluated by pulmonology this admission. There is no evidence of a COPD exacerbation. Pt is on Anoro Elilipta at home which is being continued. Mucinex BID recommended. Pulmonary toilet [facility] flutter valve, ambulate as tolerated. Continue on bronchodilators. Denies any symptoms at rest-no cough, shortness of breath (4) COPD exacerbation: Plan: No signs of Exacerbation (5) HTN (hypertension): Plan: controlled, cont home medications. (6) Depression: Plan: cont sertraline per home regimen. No acute confusion (7) Dementia: Plan: mentating at her baseline. (8) Weakness: Plan: Right Pubic Ring Fracture after a fall in Jul 2021. Evaluated by ortho last admission and advance WBAT. Weakness likely multifactorial related to current illness and hospitalization and multiple comorbidities including possible lung cancer diagnosis, cont PT/OT. Awaiting placement (9) Pulmonary nodules: Plan: Pulmonary nodules--suspicious for neoplastic process, fabrice RUL mass which has significantly increased in size since Nov 2020 per previous notes. Bronchoscopy considered however, this was not done because family didn't want to be aggressive per record review. Palliative discussions took place last admission (early Aug 2021) and code status still remains full. Malignancy is a likely etiology. Palliative medicine has been consulted. Plans are to possible discharge to hospice. Ongoing discussions among family and team. (10) DVT prophylaxis: Plan: SCDs, chemoprophylaxis held in setting of hematuria Full Code Dispo-Home versus senior care facility Admission and Anticipated Discharge Date Admission Date: August 30, 2021 Subjective 09/13/2021 The patient was seen and examined in medical telemetry unit She has been feeling much better denies any symptoms Remains weak and lethargic 09/14/2021 The patient was seen and examined in medical telemetry unit She has been stable and denies any symptoms She remains generally weak but denies any chest pain, palpitation, shortness of breath, abdominal pain, nausea and or vomiting Review of Systems Review of Systems: All systems reviewed and are unremarkable except as noted below Respiratory: No shortness of breath at rest Gastrointestinal: No more abdominal discomfort Physical Exam Physical Exam: Lying in bed comfortably Constitutional: + thin; not ill appearing Eyes: PERRL, conjunctivae normal, anicteric sclerae ENMT: external ear and nose normal, oropharynx normal Neck: trachea midline, no thyromegaly Respiratory: + cough; no respiratory distress Auscultation: + diminished lung sounds and + crackles (Crackles bibasally) Cardiovascular: Rate/Rhythm: regular rate and regular rhythm; not tachycardic Heart Sounds: normal S1 and normal S2; no murmur Extremities: no edema Gastrointestinal (Abdomen): Inspection/Auscultation: normal bowel sounds; abdomen not distended Percussion/Palpation: abdomen soft; abdomen nontender Musculoskeletal: No acute arthritis in any joint Neurologic: Alert and awake. Pleasantly confused. She is generally weak and lethargic. Lymphatic: no cervical or axillary lymphadenopathy Results & Data Results & Data ([facility]) Vital Signs (Past 12 Hours) Vital Signs Temp Pulse Pulse Resp BP Pulse Ox 09/14/21 07:46 90 09/14/21 07:28 37.0 C 97 H 16 111/67 96 09/14/21 05:17 89 09/14/21 03:18 37 C 97 H 18 90/57 L 93 09/13/21 23:14 36.9 C 98 H 20 148/78 H 94 Medications Administered Current Inpatient Medications Acetaminophen (Acetaminophen 325 Mg Tab) 650 mg PO Q4H PRN PRN Reason: Pain or Fever Stop: 09/29/21 04:41 Last Admin: 09/11/21 11:20 Dose: 650 mg Documented by: Albuterol (Albuterol 0.083% Nebu Soln 3 Ml Vial) 2.5 mg INH BIDR ALEX Stop: 09/29/21 06:59 Last Admin: 09/14/21 07:56 Dose: Not Given Documented by: Aspirin (Aspirin 81 Mg Ectab) 81 mg PO DAILY ALEX Stop: 09/29/21 08:59 Last Admin: 09/14/21 09:28 Dose: 81 mg Documented by: Diclofenac Sodium (Diclofenac Sod 1% Gel 100 Gm Tube) 1 gm EXT QID PRN PRN Reason: Pain Stop: 09/29/21 04:41 Enoxaparin Sodium (Enoxaparin Inj 40 Mg/0.4 Ml Syr) 40 mg SQ Q24H ALEX Stop: 09/29/21 08:59 Last Admin: 09/04/21 10:43 Dose: Not Given Documented by: Furosemide (Furosemide 20 Mg Tab) 20 mg PO DAILY PRN PRN Reason: Fluid Retention Stop: 09/29/21 04:41 Guaifenesin/Dextromethorphan (Guaifenesin/Dextrom Syrup 200mg/20mg 10ml Udc) 10 ml PO Q6H PRN PRN Reason: Cough Stop: 10/09/21 10:36 Last Admin: 09/11/21 08:25 Dose: 10 ml Documented by: Lactobacillus Acidoph/Casei/Rhamnos (Advanced Probiotic 1250 Mg Capsule) 2 cap PO DAILY ALEX Stop: 09/29/21 08:59 Last Admin: 09/14/21 09:28 Dose: 2 cap Documented by: Nitroglycerin (Nitroglycerin Sl 0.4 Mg/Tab Tab) 0.4 mg SL UD PRN PRN Reason: Chest Pain Stop: 09/29/21 04:41 Ondansetron HCl (Ondansetron Inj 2 Mg/Ml 2 Ml Vial) 4 mg IV Q6H PRN PRN Reason: Nausea Stop: 09/29/21 04:41 Polyethylene Glycol (Polyethylene (Miralax) 17 Gm Pack) 17 gm PO DAILY PRN PRN Reason: Constipation Stop: 09/29/21 04:41 Pravastatin Sodium (Pravastatin Sod 40 Mg Tab) 40 mg PO HS ALEX Stop: 09/29/21 20:59 Last Admin: 09/13/21 20:14 Dose: 40 mg Documented by: Sertraline HCl (Sertraline Hcl 100 Mg Tablet) 100 mg PO QPM ALEX Stop: 09/29/21 20:59 Last Admin: 09/13/21 20:14 Dose: 100 mg Documented by: Sertraline HCl (Sertraline Hcl 50 Mg Tablet) 50 mg PO QPM ALEX Stop: 09/29/21 20:59 Last Admin: 09/13/21 20:14 Dose: 50 mg Documented by: Sodium Chloride (Sodium Chlor 7% 4 Ml Neb) 4 ml NEB BIDR ALEX Stop: 09/29/21 06:59 Last Admin: 09/14/21 07:55 Dose: Not Given Documented by: Umeclidinium/Vilanterol (Umeclidinium/Vilanterol 62.5/25mcg 7 Puffs/Inhaler) 1 puffs INH DAILY ALEX Stop: 09/29/21 08:59 Last Admin: 09/13/21 08:30 Dose: 1 puffs Documented by: Vitamin D (Cholecalciferol 1,000 Units 25 Mcg Tab) 2,000 units PO QAM ALEX Stop: 09/29/21 08:59 Last Admin: 09/14/21 09:28 Dose: 2,000 units Documented by: (1) Bronchiectasis Bronchiectasis type: with acute exacerbation Qualified Code(s): J47.1 - Bronchiectasis with (acute) exacerbation (2) HTN (hypertension) Hypertension type: essential hypertension Qualified Code(s): I10 - Essential (primary) hypertension (3) Depression Depression Type: major depressive disorder Major depression recurrence: un specified whether recurrent Active/Remission status: remission status unspecified Qualified Code(s): F32.9 - Major depressive disorder, single episode, unspecified
[2021-09-14] MEDS: UMECLIDINIUM/VILANTEROL 62.5/25MCG 7 PUFFS/INHALER INH SCH (11:18)
[2021-09-14] MEDS: SERTRALINE HCL 50 MG TABLET PO SCH (21:26)
[2021-09-14] MEDS: SERTRALINE HCL 100 MG TABLET PO SCH (21:26)
[2021-09-14] MEDS: PRAVASTATIN SOD 40 MG TAB PO SCH (21:26)
[2021-09-15] MEDS: SODIUM CHLOR 7% 4 ML NEB NEB SCH ×2 (07:13→20:13)
[2021-09-15] MEDS: ALBUTEROL 0.083% NEBU SOLN 3 ML VIAL INH SCH ×2 (07:13→20:12)
[2021-09-15] MEDS: CHOLECALCIFEROL 1,000 UNITS 25 MCG TAB PO SCH (09:35)
[2021-09-15] MEDS: ASPIRIN 81 MG ECTAB PO SCH (09:35)
[2021-09-15] MEDS: ADVANCED PROBIOTIC 1250 MG CAPSULE PO SCH (09:35)
[2021-09-15] MEDS: UMECLIDINIUM/VILANTEROL 62.5/25MCG 7 PUFFS/INHALER INH SCH (09:35)
--- NOTE | 2021-09-15 15:29 | Hospitalist Progress Note ---
Date of Service September 15, 2021 Assessment & Plan (1) SARS-CoV-2 positive: Plan: h/o COVID infection in Nov 2020, Remains on room air. Continue with supportive management. Was on 2 L of oxygen overnight. Continue with [employer] inhalers. Follow-up with pulmonary medicine as an outpatient. Family is deciding between home versus shelter facility. Care management is intact to the family. Numbness also updated by me on 09/11. Remains asymptomatic from COVID-19 infection Has been taken out from isolation No more symptoms secondary to COVID-19 infection Awaiting placement (2) Hematuria: Plan: CT ABD:The bladder is largely decompressed around a Patel. Hyperdense fluid is suggested within the bladder lumen and may represent blood clots, and there is also mild pericystic infiltration. Correlate with clinical findings and urinalysis. There is dependent airspace consolidation with tree-in-bud airspace opacities and mucous plugging at the lung bases. Correlate clinically for evidence of pneumonia/aspiration pneumonitis. 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 Mild infiltration around the aorta is similar to previous. There is increasing infiltration around the right iliac bypass. This is of indeterminant etiology/significance, and clinical correlation will be required. There are subacute/healing right pubic ring fractures. -Hold Aspirin for now Appreciate Urology Input Amatory appears to be better. Hemoglobin is stable. Patient will need voiding trial prior to discharge. Needs outpatient cystoscopy No more hematuria noted and catheter has been taken out She has been voiding normally and no more hematuria (3) Bronchiectasis: Plan: she is on chronic supplemental oxygen at home 2LPM. Multiple episodes of recurrent pneumonia this year. Evaluated by pulmonology this admission. There is no evidence of a COPD exacerbation. Pt is on Anoro Elilipta at home which is being continued. Mucinex BID recommended. Pulmonary toilet wtih flutter valve, ambulate as tolerated. Continue on bronchodilators. Denies any symptoms at rest-no cough, shortness of breath (4) COPD exacerbation: Plan: No signs of Exacerbation (5) HTN (hypertension): Plan: controlled, cont home medications. (6) Depression: Plan: cont sertraline per home regimen. No acute confusion (7) Dementia: Plan: mentating at her baseline. (8) Weakness: Plan: Right Pubic Ring Fracture after a fall in Jul 2021. Evaluated by ortho last admission and advance WBAT. Weakness likely multifactorial related to current illness and hospitalization and multiple comorbidities including possible lung cancer diagnosis, cont PT/OT. Awaiting placement (9) Pulmonary nodules: Plan: Pulmonary nodules--suspicious for neoplastic process, fabrice RUL mass which has significantly increased in size since Nov 2020 per previous notes. Bronchoscopy considered however, this was not done because family didn't want to be aggressive per record review. Palliative discussions took place last admission (early Aug 2021) and code status still remains full. Malignancy is a likely etiology. Palliative medicine has been consulted. Plans are to possible discharge to hospice. Ongoing discussions among family and team. Awaiting placement to go to SNF (10) DVT prophylaxis: Plan: SCDs, chemoprophylaxis held in setting of hematuria Full Code Dispo-Home versus shelter facility Admission and Anticipated Discharge Date Admission Date: August 30, 2021 Subjective 09/13/2021 The patient was seen and examined in medical telemetry unit She has been feeling much better denies any symptoms Remains weak and lethargic 09/14/2021 The patient was seen and examined in medical telemetry unit She has been stable and denies any symptoms She remains generally weak but denies any chest pain, palpitation, shortness of breath, abdominal pain, nausea and or vomiting 09/15/2021 The patient was seen and examined in medical telemetry unit She remained stable and denies any symptoms Awaiting to be placed Review of Systems Review of Systems: All systems reviewed and are unremarkable except as noted below Respiratory: No shortness of breath at rest Gastrointestinal: No more abdominal discomfort Physical Exam Physical Exam: Lying in bed comfortably Constitutional: + thin; not ill appearing Eyes: PERRL, conjunctivae normal, anicteric sclerae ENMT: external ear and nose normal, oropharynx normal Neck: trachea midline, no thyromegaly Respiratory: + cough; no respiratory distress Auscultation: + diminished lung sounds and + crackles (Crackles bibasally) Cardiovascular: Rate/Rhythm: regular rate and regular rhythm; not tachycardic Heart Sounds: normal S1 and normal S2; no murmur Extremities: no edema Gastrointestinal (Abdomen): Inspection/Auscultation: normal bowel sounds; abdomen not distended Percussion/Palpation: abdomen soft; abdomen nontender Musculoskeletal: No acute arthritis in any joint Neurologic: Alert, awake and pleasantly confused. Generally weak without any focal neuro deficit Lymphatic: no cervical or axillary lymphadenopathy Results & Data Results & Data ([facility]) Vital Signs (Past 12 Hours) Vital Signs Temp Pulse Pulse Resp BP Pulse Ox 09/15/21 11:36 37.2 C 96 H 16 94/58 L 94 09/15/21 08:00 94 H 09/15/21 07:24 37.3 C 95 H 16 101/66 100 09/15/21 07:14 97 H 18 96 09/15/21 04:00 37.3 C 95 H 18 103/66 95 Medications Administered Current Inpatient Medications Acetaminophen (Acetaminophen 325 Mg Tab) 650 mg PO Q4H PRN PRN Reason: Pain or Fever Stop: 09/29/21 04:41 Last Admin: 09/11/21 11:20 Dose: 650 mg Documented by: Albuterol (Albuterol 0.083% Nebu Soln 3 Ml Vial) 2.5 mg INH BIDR ALEX Stop: 09/29/21 06:59 Last Admin: 09/15/21 07:13 Dose: 2.5 mg Documented by: Aspirin (Aspirin 81 Mg Ectab) 81 mg PO DAILY ALEX Stop: 09/29/21 08:59 Last Admin: 09/15/21 09:35 Dose: 81 mg Documented by: Diclofenac Sodium (Diclofenac Sod 1% Gel 100 Gm Tube) 1 gm EXT QID PRN PRN Reason: Pain Stop: 09/29/21 04:41 Enoxaparin Sodium (Enoxaparin Inj 40 Mg/0.4 Ml Syr) 40 mg SQ Q24H ALEX Stop: 09/29/21 08:59 Last Admin: 09/04/21 10:43 Dose: Not Given Documented by: Furosemide (Furosemide 20 Mg Tab) 20 mg PO DAILY PRN PRN Reason: Fluid Retention Stop: 09/29/21 04:41 Guaifenesin/Dextromethorphan (Guaifenesin/Dextrom Syrup 200mg/20mg 10ml Udc) 10 ml PO Q6H PRN PRN Reason: Cough Stop: 10/09/21 10:36 Last Admin: 09/11/21 08:25 Dose: 10 ml Documented by: Lactobacillus Acidoph/Casei/Rhamnos (Advanced Probiotic 1250 Mg Capsule) 2 cap PO DAILY ALEX Stop: 09/29/21 08:59 Last Admin: 09/15/21 09:35 Dose: 2 cap Documented by: Nitroglycerin (Nitroglycerin Sl 0.4 Mg/Tab Tab) 0.4 mg SL UD PRN PRN Reason: Chest Pain Stop: 09/29/21 04:41 Ondansetron HCl (Ondansetron Inj 2 Mg/Ml 2 Ml Vial) 4 mg IV Q6H PRN PRN Reason: Nausea Stop: 09/29/21 04:41 Polyethylene Glycol (Polyethylene (Miralax) 17 Gm Pack) 17 gm PO DAILY PRN PRN Reason: Constipation Stop: 09/29/21 04:41 Pravastatin Sodium (Pravastatin Sod 40 Mg Tab) 40 mg PO HS ALEX Stop: 09/29/21 20:59 Last Admin: 09/14/21 21:26 Dose: 40 mg Documented by: Sertraline HCl (Sertraline Hcl 100 Mg Tablet) 100 mg PO QPM ALEX Stop: 09/29/21 20:59 Last Admin: 09/14/21 21:26 Dose: 100 mg Documented by: Sertraline HCl (Sertraline Hcl 50 Mg Tablet) 50 mg PO QPM ALEX Stop: 09/29/21 20:59 Last Admin: 09/14/21 21:26 Dose: 50 mg Documented by: Sodium Chloride (Sodium Chlor 7% 4 Ml Neb) 4 ml NEB BIDR ALEX Stop: 09/29/21 06:59 Last Admin: 09/15/21 07:13 Dose: 4 ml Documented by: Umeclidinium/Vilanterol (Umeclidinium/Vilanterol 62.5/25mcg 7 Puffs/Inhaler) 1 puffs INH DAILY ALEX Stop: 09/29/21 08:59 Last Admin: 09/15/21 09:35 Dose: 1 puffs Documented by: Vitamin D (Cholecalciferol 1,000 Units 25 Mcg Tab) 2,000 units PO QAM ALEX Stop: 09/29/21 08:59 Last Admin: 09/15/21 09:35 Dose: 2,000 units Documented by: (1) Bronchiectasis Bronchiectasis type: with acute exacerbation Qualified Code(s): J47.1 - Bronchiectasis with (acute) exacerbation (2) HTN (hypertension) Hypertension type: essential hypertension Qualified Code(s): I10 - Essential (primary) hypertension (3) Depression Depression Type: major depressive disorder Major depression recurrence: unspecified whether recurrent Active/Remission status: remission status unspecified Qualified Code(s): F32.9 - Major depressive disorder, single episode, unspecified
[2021-09-15] MEDS: SERTRALINE HCL 50 MG TABLET PO SCH (22:03)
[2021-09-15] MEDS: PRAVASTATIN SOD 40 MG TAB PO SCH (22:03)
[2021-09-15] MEDS: SERTRALINE HCL 100 MG TABLET PO SCH (22:03)
[2021-09-16] MEDS: SODIUM CHLOR 7% 4 ML NEB NEB SCH ×2 (07:37→19:38)
[2021-09-16] MEDS: ALBUTEROL 0.083% NEBU SOLN 3 ML VIAL INH SCH ×2 (07:37→19:37)
[2021-09-16] MEDS: ASPIRIN 81 MG ECTAB PO SCH (08:29)
[2021-09-16] MEDS: ADVANCED PROBIOTIC 1250 MG CAPSULE PO SCH (08:29)
[2021-09-16] MEDS: UMECLIDINIUM/VILANTEROL 62.5/25MCG 7 PUFFS/INHALER INH SCH (08:29)
[2021-09-16] MEDS: CHOLECALCIFEROL 1,000 UNITS 25 MCG TAB PO SCH (08:29)
--- NOTE | 2021-09-16 14:43 | Hospitalist Progress Note ---
Date of Service September 16, 2021 Assessment & Plan (1) SARS-CoV-2 positive: Plan: h/o COVID infection in Nov 2020, Remains on room air. Continue with supportive management. Was on 2 L of oxygen overnight. Continue with [employer] inhalers. Follow-up with pulmonary medicine as an outpatient. Remains stable Family is deciding between home versus detention facility. Care management is intact to the family. Numbness also updated by me on 09/11. Remains asymptomatic from COVID-19 infection Has been taken out from isolation No more symptoms secondary to COVID-19 infection Awaiting placement (2) Hematuria: Plan: CT ABD:The bladder is largely decompressed around a Patel. Hyperdense fluid is suggested within the bladder lumen and may represent blood clots, and there is also mild pericystic infiltration. Correlate with clinical findings and urinalysis. There is dependent airspace consolidation with tree-in-bud airspace opacities and mucous plugging at the lung bases. Correlate clinically for evidence of pneumonia/aspiration pneumonitis. 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 Mild infiltration around the aorta is similar to previous. There is increasing infiltration around the right iliac bypass. This is of indeterminant etiology/significance, and clinical correlation will be required. There are subacute/healing right pubic ring fractures. -Hold Aspirin for now Appreciate Urology Input Amatory appears to be better. Hemoglobin is stable. Patient will need voiding trial prior to discharge. Needs outpatient cystoscopy No more hematuria noted and catheter has been taken out She has been voiding normally and no more hematuria (3) Bronchiectasis: Plan: she is on chronic supplemental oxygen at home 2LPM. Multiple episodes of recurrent pneumonia this year. Evaluated by pulmonology this admission. There is no evidence of a COPD exacerbation. Pt is on Anoro Elilipta at home which is being continued. Mucinex BID recommended. Pulmonary toilet wtih flutter valve, ambulate as tolerated. Continue on bronchodilators. Denies any symptoms at rest-no cough, shortness of breath No symptoms of fever, chills, cough or shortness of breath (4) COPD exacerbation: Plan: No signs of Exacerbation (5) HTN (hypertension): Plan: controlled, cont home medications. (6) Depression: Plan: cont sertraline per home regimen. No acute confusion (7) Dementia: Plan: mentating at her baseline. No acute delirium (8) Weakness: Plan: Right Pubic Ring Fracture after a fall in Jul 2021. Evaluated by ortho last admission and advance WBAT. Weakness likely multifactorial related to current illness and hospitalization and multiple comorbidities including possible lung cancer diagnosis, cont PT/OT. Awaiting placement (9) Pulmonary nodules: Plan: Pulmonary nodules--suspicious for neoplastic process, fabrice RUL mass which has significantly increased in size since Nov 2020 per previous notes. Bronchoscopy considered however, this was not done because family didn't want to be aggressive per record review. Palliative discussions took place last admission (early Aug 2021) and code status still remains full. Malignancy is a likely etiology. Palliative medicine has been consulted. Plans are to possible discharge to hospice. Ongoing discussions among family and team. Awaiting placement to go to SNF (10) DVT prophylaxis: Plan: SCDs, chemoprophylaxis held in setting of hematuria Full Code Dispo-Home versus detention facility Admission and Anticipated Discharge Date Admission Date: August 30, 2021 Subjective 09/13/2021 The patient was seen and examined in medical telemetry unit She has been feeling much better denies any symptoms Remains weak and lethargic 09/14/2021 The patient was seen and examined in medical telemetry unit She has been stable and denies any symptoms She remains generally weak but denies any chest pain, palpitation, shortness of breath, abdominal pain, nausea and or vomiting 09/15/2021 The patient was seen and examined in medical telemetry unit She remained stable and denies any symptoms Awaiting to be placed 09/16/2021 The patient was seen and examined in medical telemetry unit She has been waiting to be placed Denies any symptoms Review of Systems Review of Systems: All systems reviewed and are unremarkable except as noted below Respiratory: No shortness of breath at rest Gastrointestinal: No more abdominal discomfort Physical Exam Physical Exam: Lying in bed comfortably Constitutional: + thin; not ill appearing Eyes: PERRL, conjunctivae normal, anicteric sclerae ENMT: external ear and nose normal, oropharynx normal Neck: trachea midline, no thyromegaly Respiratory: + cough; no respiratory distress Auscultation: + diminished lung sounds and + crackles (Crackles bibasally) Cardiovascular: Rate/Rhythm: regular rate and regular rhythm; not tachycardic Heart Sounds: normal S1 and normal S2; no murmur Extremities: no edema Gastrointestinal (Abdomen): Inspection/Auscultation: normal bowel sounds; abdomen not distended Percussion/Palpation: abdomen soft; abdomen nontender Musculoskeletal: No acute arthritis in any joint Neurologic: Alert and awake. Pleasantly confused. Generally weak and moves all extremities Lymphatic: no cervical or axillary lymphadenopathy Results & Data Results & Data ([facility]) Vital Signs (Past 12 Hours) Vital Signs Temp Pulse Pulse Resp BP Pulse Ox 09/16/21 11:57 37.2 C 92 H 18 104/64 95 09/16/21 07:53 37.2 C 80 20 108/62 95 09/16/21 07:18 90 09/16/21 03:00 36.9 C 102 H 20 110/69 93 Medications Administered Current Inpatient Medications Acetaminophen (Acetaminophen 325 Mg Tab) 650 mg PO Q4H PRN PRN Reason: Pain or Fever Stop: 09/29/21 04:41 Last Admin: 09/11/21 11:20 Dose: 650 mg Documented by: Albuterol (Albuterol 0.083% Nebu Soln 3 Ml Vial) 2.5 mg INH BIDR ALEX Stop: 09/29/21 06:59 Last Admin: 09/16/21 07:37 Dose: Not Given Documented by: Aspirin (Aspirin 81 Mg Ectab) 81 mg PO DAILY ALEX Stop: 09/29/21 08:59 Last Admin: 09/16/21 08:29 Dose: 81 mg Documented by: Diclofenac Sodium (Diclofenac Sod 1% Gel 100 Gm Tube) 1 gm EXT QID PRN PRN Reason: Pain Stop: 09/29/21 04:41 Enoxaparin Sodium (Enoxaparin Inj 40 Mg/0.4 Ml Syr) 40 mg SQ Q24H ALEX Stop: 09/29/21 08:59 Last Admin: 09/04/21 10:43 Dose: Not Given Documented by: Furosemide (Furosemide 20 Mg Tab) 20 mg PO DAILY PRN PRN Reason: Fluid Retention Stop: 09/29/21 04:41 Guaifenesin/Dextromethorphan (Guaifenesin/Dextrom Syrup 200mg/20mg 10ml Udc) 10 ml PO Q6H PRN PRN Reason: Cough Stop: 10/09/21 10:36 Last Admin: 09/11/21 08:25 Dose: 10 ml Documented by: Lactobacillus Acidoph/Casei/Rhamnos (Advanced Probiotic 1250 Mg Capsule) 2 cap PO DAILY ALEX Stop: 09/29/21 08:59 Last Admin: 09/16/21 08:29 Dose: 2 cap Documented by: Nitroglycerin (Nitroglycerin Sl 0.4 Mg/Tab Tab) 0.4 mg SL UD PRN PRN Reason: Chest Pain Stop: 09/29/21 04:41 Ondansetron HCl (Ondansetron Inj 2 Mg/Ml 2 Ml Vial) 4 mg IV Q6H PRN PRN Reason: Nausea Stop: 09/29/21 04:41 Polyethylene Glycol (Polyethylene (Miralax) 17 Gm Pack) 17 gm PO DAILY PRN PRN Reason: Constipation Stop: 09/29/21 04:41 Pravastatin Sodium (Pravastatin Sod 40 Mg Tab) 40 mg PO HS ALEX Stop: 09/29/21 20:59 Last Admin: 09/15/21 22:03 Dose: 40 mg Documented by: Sertraline HCl (Sertraline Hcl 100 Mg Tablet) 100 mg PO QPM ALEX Stop: 09/29/21 20:59 Last Admin: 09/15/21 22:03 Dose: 100 mg Documented by: Sertraline HCl (Sertraline Hcl 50 Mg Tablet) 50 mg PO QPM ALEX Stop: 09/29/21 20:59 Last Admin: 09/15/21 22:03 Dose: 50 mg Documented by: Sodium Chloride (Sodium Chlor 7% 4 Ml Neb) 4 ml NEB BIDR ALEX Stop: 09/29/21 06:59 Last Admin: 09/16/21 07:37 Dose: Not Given Documented by: Umeclidinium/Vilanterol (Umeclidinium/Vilanterol 62.5/25mcg 7 Puffs/Inhaler) 1 puffs INH DAILY ALEX Stop: 09/29/21 08:59 Last Admin: 09/16/21 08:29 Dose: 1 puffs Documented by: Vitamin D (Cholecalciferol 1,000 Units 25 Mcg Tab) 2,000 units PO QAM ALEX Stop: 09/29/21 08:59 Last Admin: 09/16/21 08:29 Dose: 2,000 units Documented by: (1) Bronchiectasis Bronchiectasis type: with acute exacerbation Qualified Code(s): J47.1 - Bronchiectasis with (acute) exacerbation (2) HTN (hypertension) Hypertension type: essential hypertension Qualified Code(s): I10 - Essential (primary) hypertension (3) Depression Depression Type: major depressive disorder Major depression recurrence: unspecified whether recurrent Active/Remission status: remission status unspecified Qualified Code(s): F32.9 - Major depressive disorder, single episode, unspecified
[2021-09-16] MEDS: SERTRALINE HCL 100 MG TABLET PO SCH (21:40)
[2021-09-16] MEDS: PRAVASTATIN SOD 40 MG TAB PO SCH (21:40)
[2021-09-16] MEDS: SERTRALINE HCL 50 MG TABLET PO SCH (21:40)
[2021-09-17 07:10] LABS: Basophils # (auto) 0.01 K/uL (0-0.2); Basophils % (auto) 0.1 %; Eosinophils # (auto) 0.07 K/uL (0-0.5); Eosinophils % (auto) 0.9 %; Hematocrit (blood only) 33.9 % (37-47); Hemoglobin 10.6 g/dL (12.0-16.0); Immature Granulocytes # (auto) 0.04 K/uL (0.00-0.02); Immature Granulocytes % (auto) 0.5 %; Lymphocytes # (auto) 0.85 K/uL (1.2-3.4); Lymphocytes % (auto) 11.3 %; Mean Corpuscular Hemoglobin 29.6 pg (25-34); Mean Corpuscular Hgb Conc 31.3 g/dL (32-36); Mean Corpuscular Volume 94.7 fL (80-100); Mean Platelet Volume 9.3 fL (7.4-10.4); Monocytes # (auto) 0.56 K/uL (0.11-0.59); Monocytes % (auto) 7.4 %; Neutrophils # (auto) 5.99 K/uL (1.4-6.5); Neutrophils % (auto) 79.8 %; Platelet Count 169 K/uL (130-400); RDW Coefficient of Variation 15.4 % (11.5-14.5); RDW Standard Deviation 53.3 fL (36.4-46.3); Red Blood Count 3.58 M/uL (4.2-5.4); White Blood Count 7.52 K/uL (4.8-10.8)
[2021-09-17] MEDS: SODIUM CHLOR 7% 4 ML NEB NEB SCH ×2 (07:21→19:21)
[2021-09-17] MEDS: ALBUTEROL 0.083% NEBU SOLN 3 ML VIAL INH SCH ×2 (07:21→19:20)
[2021-09-17 07:28] LABS: BUN Creatinine Ratio 21.8 (10-20); Calcium 9.4 mg/dl (8.5-10.1); Creatinine Clr Calc Pharmacy 39.9 ml/min; Est GFR (African American) 82.1 ml/min; Est GFR (Non-African American) 70.8 ml/min; Potassium 4.8 mmol/L (3.5-5.1)
[2021-09-17] MEDS: ASPIRIN 81 MG ECTAB PO SCH (09:19)
[2021-09-17] MEDS: UMECLIDINIUM/VILANTEROL 62.5/25MCG 7 PUFFS/INHALER INH SCH (09:20)
[2021-09-17] MEDS: ADVANCED PROBIOTIC 1250 MG CAPSULE PO SCH (09:20)
[2021-09-17] MEDS: CHOLECALCIFEROL 1,000 UNITS 25 MCG TAB PO SCH (09:20)
--- NOTE | 2021-09-17 13:37 | Hospitalist Progress Note ---
Date of Service September 17, 2021 Assessment & Plan (1) SARS-CoV-2 positive: Plan: h/o COVID infection in Nov 2020, Remains on room air. Continue with supportive management. Was on 2 L of oxygen overnight. 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 Follow-up with pulmonary medicine as an outpatient. Remains stable Family is deciding between home versus residential facility. Care management is intact to the family. Numbness also updated by me on 09/11. Remains asymptomatic from COVID-19 infection Has been taken out from isolation No more symptoms secondary to COVID-19 infection Remains stable and awaiting placement (2) Hematuria: Plan: CT ABD:The bladder is largely decompressed around a Patel. Hyperdense fluid is suggested within the bladder lumen and may represent blood clots, and there is also mild pericystic infiltration. Correlate with clinical findings and urinalysis. There is dependent airspace consolidation with tree-in-bud airspace opacities and mucous plugging at the lung bases. Correlate clinically for evidence of pneumonia/aspiration pneumonitis. 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 Mild infiltration around the aorta is similar to previous. There is increasing infiltration around the right iliac bypass. This is of indeterminant etiology/significance, and clinical correlation will be required. There are subacute/healing right pubic ring fractures. -Hold Aspirin for now Appreciate Urology Input Amatory appears to be better. Hemoglobin is stable. Patient will need voiding trial prior to discharge. Needs outpatient cystoscopy No more hematuria noted and catheter has been taken out She has been voiding normally and no more hematuria (3) Bronchiectasis: Plan: she is on chronic supplemental oxygen at home 2LPM. Multiple episodes of recurrent pneumonia this year. Evaluated by pulmonology this admission. There is no evidence of a COPD exacerbation. Pt is on Anoro Elilipta at home which is being continued. Mucinex BID recommended. Pulmonary toilet wtih flutter valve, ambulate as tolerated. Continue on bronchodilators. Denies any symptoms at rest-no cough, shortness of breath No symptoms of fever, chills, cough or shortness of breath No respiratory symptoms (4) COPD exacerbation: Plan: No signs of Exacerbation (5) HTN (hypertension): Plan: controlled, cont home medications. Blood pressure remains on the lower side (6) Depression: Plan: cont sertraline per home regimen. No acute confusion (7) Dementia: Plan: mentating at her baseline. No acute delirium (8) Weakness: Plan: Right Pubic Ring Fracture after a fall in Jul 2021. Evaluated by ortho last admission and advance WBAT. Weakness likely multifactorial related to current illness and hospitalization and multiple comorbidities including possible lung cancer diagnosis, cont PT/OT. Awaiting placement (9) Pulmonary nodules: Plan: Pulmonary nodules--suspicious for neoplastic process, fabrice RUL mass which has significantly increased in size since Nov 2020 per previous notes. Bronchoscopy considered however, this was not done because family didn't want to be aggressive per record review. Palliative discussions took place last admission (early Aug 2021) and code status still remains full. Malignancy is a likely etiology. Palliative medicine has been consulted. Plans are to possible discharge to hospice. Ongoing discussions among family and team. Awaiting placement to go to SNF (10) DVT prophylaxis: Plan: SCDs, chemoprophylaxis held in setting of hematuria Full Code Dispo-Home versus residential facility Admission and Anticipated Discharge Date Admission Date: August 30, 2021 Subjective 09/13/2021 The patient was seen and examined in medical telemetry unit She has been feeling much better denies any symptoms Remains weak and lethargic 09/14/2021 The patient was seen and examined in medical telemetry unit She has been stable and denies any symptoms She remains generally weak but denies any chest pain, palpitation, shortness of breath, abdominal pain, nausea and or vomiting 09/15/2021 The patient was seen and examined in medical telemetry unit She remained stable and denies any symptoms Awaiting to be placed 09/16/2021 The patient was seen and examined in medical telemetry unit She has been waiting to be placed Denies any symptoms 09/17/2021 The patient was seen and examined in medical telemetry unit She remained stable and denies any symptoms Pleasantly confused Review of Systems Review of Systems: All systems reviewed and are unremarkable except as noted below Respiratory: No shortness of breath at rest Gastrointestinal: No more abdominal discomfort Physical Exam Physical Exam: Lying in bed comfortably Constitutional: + thin; not ill appearing Eyes: PERRL, conjunctivae normal, anicteric sclerae ENMT: external ear and nose normal, oropharynx normal Neck: trachea midline, no thyromegaly Respiratory: + cough; no respiratory distress Auscultation: + diminished lung sounds and + crackles (Crackles bibasally) Cardiovascular: Rate/Rhythm: regular rate and regular rhythm; not tachycardic Heart Sounds: normal S1 and normal S2; no murmur Extremities: no edema Gastrointestinal (Abdomen): Inspection/Auscultation: normal bowel sounds; abdomen not distended Percussion/Palpation: abdomen soft; abdomen nontender Musculoskeletal: No acute arthritis in any joint Neurologic: Alert, awake. Pleasantly confused. Generally weak without any focal neuro deficit Lymphatic: no cervical or axillary lymphadenopathy Results & Data Results & Data ([facility]) Vital Signs (Past 12 Hours) Vital Signs Temp Pulse Pulse Pulse Resp BP Pulse Ox 09/17/21 11:46 37.2 C 97 H 20 96/58 L 95 09/17/21 08:09 36.4 C L 97 H 20 102/64 94 09/17/21 07:21 93 H 18 92 09/17/21 07:00 90 09/17/21 03:51 37.4 C 96 H 18 105/61 91 Laboratory Results Short CBC 09/17/21 Range/Units 06:58 WBC 7.52 (4.8-10.8) K/uL Hgb 10.6 L (12.0-16.0) g/dL Hct 33.9 L (37-47) % Plt Count 169 (130-400) K/uL BMP 09/17/21 06:58 Sodium 140 Potassium 4.8 Chloride 107 Carbon Dioxide 27 BUN 17 Creatinine 0.78 Glucose 117 H Calcium 9.4 Medications Administered Current Inpatient Medications Acetaminophen (Acetaminophen 325 Mg Tab) 650 mg PO Q4H PRN PRN Reason: Pain or Fever Stop: 09/29/21 04:41 Last Admin: 09/11/21 11:20 Dose: 650 mg Documented by: Albuterol (Albuterol 0.083% Nebu Soln 3 Ml Vial) 2.5 mg INH BIDR ALEX Stop: 09/29/21 06:59 Last Admin: 09/17/21 07:21 Dose: 2.5 mg Documented by: Aspirin (Aspirin 81 Mg Ectab) 81 mg PO DAILY COUNT INCLUDES [facility] Stop: 09/29/21 08:59 Last Admin: 09/17/21 09:19 Dose: 81 mg Documented by: Diclofenac Sodium (Diclofenac Sod 1% Gel 100 Gm Tube) 1 gm EXT QID PRN PRN Reason: Pain Stop: 09/29/21 04:41 Enoxaparin Sodium (Enoxaparin Inj 40 Mg/0.4 Ml Syr) 40 mg SQ Q24H ALEX Stop: 09/29/21 08:59 Last Admin: 09/04/21 10:43 Dose: Not Given Documented by: Furosemide (Furosemide 20 Mg Tab) 20 mg PO DAILY PRN PRN Reason: Fluid Retention Stop: 09/29/21 04:41 Guaifenesin/Dextromethorphan (Guaifenesin/Dextrom Syrup 200mg/20mg 10ml Udc) 10 ml PO Q6H PRN PRN Reason: Cough Stop: 10/09/21 10:36 Last Admin: 09/11/21 08:25 Dose: 10 ml Documented by: Lactobacillus Acidoph/Casei/Rhamnos (Advanced Probiotic 1250 Mg Capsule) 2 cap PO DAILY ALEX Stop: 09/29/21 08:59 Last Admin: 09/17/21 09:20 Dose: 2 cap Documented by: Nitroglycerin (Nitroglycerin Sl 0.4 Mg/Tab Tab) 0.4 mg SL UD PRN PRN Reason: Chest Pain Stop: 09/29/21 04:41 Ondansetron HCl (Ondansetron Inj 2 Mg/Ml 2 Ml Vial) 4 mg IV Q6H PRN PRN Reason: Nausea Stop: 09/29/21 04:41 Polyethylene Glycol (Polyethylene (Miralax) 17 Gm Pack) 17 gm PO DAILY PRN PRN Reason: Constipation Stop: 09/29/21 04:41 Pravastatin Sodium (Pravastatin Sod 40 Mg Tab) 40 mg PO HS ALEX Stop: 09/29/21 20:59 Last Admin: 09/16/21 21:40 Dose: 40 mg Documented by: Sertraline HCl (Sertraline Hcl 100 Mg Tablet) 100 mg PO QPM ALEX Stop: 09/29/21 20:59 Last Admin: 09/16/21 21:40 Dose: 100 mg Documented by: Sertraline HCl (Sertraline Hcl 50 Mg Tablet) 50 mg PO QPM ALEX Stop: 09/29/21 20:59 Last Admin: 09/16/21 21:40 Dose: 50 mg Documented by: Sodium Chloride (Sodium Chlor 7% 4 Ml Neb) 4 ml NEB BIDR ALEX Stop: 09/29/21 06:59 Last Admin: 09/17/21 07:21 Dose: 4 ml Documented by: Umeclidinium/Vilanterol (Umeclidinium/Vilanterol 62.5/25mcg 7 Puffs/Inhaler) 1 puffs INH DAILY COUNT INCLUDES THE [facility] Stop: 09/29/21 08:59 Last Admin: 09/17/21 09:20 Dose: 1 puffs Documented by: Vitamin D (Cholecalciferol 1,000 Units 25 Mcg Tab) 2,000 units PO QAM ALEX Stop: 09/29/21 08:59 Last Admin: 09/17/21 09:20 Dose: 2,000 units Documented by: (1) Bronchiectasis Bronchiectasis type: with acute exacerbation Qualified Code(s): J47.1 - Bronchiectasis with (acute) exacerbation (2) HTN (hypertension) Hypertension type: essential hypertension Qualified Code(s): I10 - Essential (primary) hypertension (3) Depression Depression Type: major depressive disorder Major depression recurrence: unspecified whether recurrent Active/Remission status: remission status unspecified Qualified Code(s): F32.9 - Major depressive disorder, single episo de, unspecified
[2021-09-17] MEDS: PRAVASTATIN SOD 40 MG TAB PO SCH (20:50)
[2021-09-17] MEDS: SERTRALINE HCL 50 MG TABLET PO SCH (20:50)
[2021-09-17] MEDS: SERTRALINE HCL 100 MG TABLET PO SCH (20:50)
[2021-09-17] MEDS: ACETAMINOPHEN 325 MG TAB PO PRN (23:46)
[2021-09-18] MEDS: SODIUM CHLOR 7% 4 ML NEB NEB SCH ×2 (07:31→20:28)
[2021-09-18] MEDS: ALBUTEROL 0.083% NEBU SOLN 3 ML VIAL INH SCH ×2 (07:31→19:57)
[2021-09-18] MEDS: UMECLIDINIUM/VILANTEROL 62.5/25MCG 7 PUFFS/INHALER INH SCH (09:00)
[2021-09-18] MEDS: ASPIRIN 81 MG ECTAB PO SCH (09:00)
[2021-09-18] MEDS: CHOLECALCIFEROL 1,000 UNITS 25 MCG TAB PO SCH (09:00)
[2021-09-18] MEDS: ADVANCED PROBIOTIC 1250 MG CAPSULE PO SCH (09:00)
--- NOTE | 2021-09-18 15:49 | Hospitalist Progress Note ---
Date of Service September 18, 2021 Assessment & Plan (1) SARS-CoV-2 positive: Plan: h/o COVID infection in Nov 2020, Remains on room air. Continue with supportive management. Was on 2 L of oxygen overnight. 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 Follow-up with pulmonary medicine as an outpatient. No more respiratory symptoms Family is deciding between home versus residential facility. Care management is intact to the family. Numbness also updated by me on 09/11. Remains asymptomatic from COVID-19 infection Has been taken out from isolation No more symptoms secondary to COVID-19 infection Remains stable and awaiting placement (2) Hematuria: Plan: CT ABD:The bladder is largely decompressed around a Patel. Hyperdense fluid is suggested within the bladder lumen and may represent blood clots, and there is also mild pericystic infiltration. Correlate with clinical findings and urinalysis. There is dependent airspace consolidation with tree-in-bud airspace opacities and mucous plugging at the lung bases. Correlate clinically for evidence of pneumonia/aspiration pneumonitis. 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 Mild infiltration around the aorta is similar to previous. There is increasing infiltration around the right iliac bypass. This is of indeterminant etiology/significance, and clinical correlation will be required. There are subacute/healing right pubic ring fractures. -Hold Aspirin for now Appreciate Urology Input Amatory appears to be better. Hemoglobin is stable. Patient will need voiding trial prior to discharge. Needs outpatient cystoscopy No more hematuria noted and catheter has been taken out Denies any more urinary symptoms and no more hematuria (3) Bronchiectasis: Plan: she is on chronic supplemental oxygen at home 2LPM. Multiple episodes of recurrent pneumonia this year. Evaluated by pulmonology this admission. There is no evidence of a COPD exacerbation. Pt is on Anoro Elilipta at home which is being continued. Mucinex BID recommended. Pulmonary toilet wt flutter valve, ambulate as tolerated. Continue on bronchodilators. Denies any symptoms at rest-no cough, shortness of breath No symptoms of fever, chills, cough or shortness of breath No respiratory symptoms (4) COPD exacerbation: Plan: No signs of Exacerbation (5) HTN (hypertension): Plan: controlled, cont home medications. Blood pressure remains on the lower side (6) Depression: Plan: cont sertraline per home regimen. No acute confusion (7) Dementia: Plan: mentating at her baseline. No acute delirium (8) Weakness: Plan: Right Pubic Ring Fracture after a fall in Jul 2021. Evaluated by ortho last admission and advance WBAT. Weakness likely multifactorial related to current illness and hospitalization and multiple comorbidities including possible lung cancer diagnosis, cont PT/OT. Awaiting placement [facility] (9) Pulmonary nodules: Plan: Pulmonary nodules--suspicious for neoplastic process, fabrice RUL mass which has significantly increased in size since Nov 2020 per previous notes. Bronchoscopy considered however, this was not done because family didn't want to be aggressive per record review. Palliative discussions took place last admission (early Aug 2021) and code status still remains full. Malignancy is a likely etiology. Palliative medicine has been consulted. Plans are to possible discharge to hospice. Ongoing discussions among family and team. Awaiting placement to go to SNF (10) DVT prophylaxis: Plan: SCDs, chemoprophylaxis held in setting of hematuria Full Code Dispo-Home versus residential facility Admission and Anticipated Discharge Date Admission Date: August 30, 2021 Subjective 09/13/2021 The patient was seen and examined in medical telemetry unit She has been feeling much better denies any symptoms Remains weak and lethargic 09/14/2021 The patient was seen and examined in medical telemetry unit She has been stable and denies any symptoms She remains generally weak but denies any chest pain, palpitation, shortness of breath, abdominal pain, nausea and or vomiting 09/15/2021 The patient was seen and examined in medical telemetry unit She remained stable and denies any symptoms Awaiting to be placed 09/16/2021 The patient was seen and examined in medical telemetry unit She has been waiting to be placed Denies any symptoms 09/17/2021 The patient was seen and examined in medical telemetry unit She remained stable and denies any symptoms Pleasantly confused 09/18/2021 The patient was seen and examined in medical telemetry unit She has been stable and denies any symptoms Review of Systems Review of Systems: All systems reviewed and are unremarkable except as noted below Respiratory: No shortness of breath at rest Gastrointestinal: No more abdominal discomfort Physical Exam Physical Exam: Lying in bed comfortably Constitutional: + thin; not ill appearing Eyes: PERRL, conjunctivae normal, anicteric sclerae ENMT: external ear and nose normal, oropharynx normal Neck: trachea midline, no thyromegaly Respiratory: + cough; no respiratory distress Auscultation: + diminished lung sounds and + crackles (Crackles bibasally) Cardiovascular: Rate/Rhythm: regular rate and regular rhythm; not tachycardic Heart Sounds: normal S1 and normal S2; no murmur Extremities: no edema Gastrointestinal (Abdomen): Inspection/Auscultation: normal bowel sounds; abdomen not distended Percussion/Palpation: abdomen soft; abdomen nontender Musculoskeletal: Arthritis in any joint Neurologic: Alert and awake. Pleasantly confused Lymphatic: no cervical or axillary lymphadenopathy Results & Data Results & Data ([facility]) Vital Signs (Past 12 Hours) Vital Signs Temp Pulse Pulse Pulse Resp BP BP 09/18/21 13:17 37.0 C 102 H 99 H 16 109/68 89/62 L 09/18/21 11:45 37.0 C 102 H 16 109/68 09/18/21 07:46 36.8 C 91 H 18 114/70 09/18/21 07:32 79 16 09/18/21 07:26 87 09/18/21 04:00 36.4 C L 89 18 109/63 Pulse Ox 09/18/21 13:17 91 09/18/21 11:45 91 09/18/21 07:46 100 09/18/21 07:32 97 09/18/21 07:26 09/18/21 04:00 96 Medications Administered Current Inpatient Medications Acetaminophen (Acetaminophen 325 Mg Tab) 650 mg PO Q4H PRN PRN Reason: Pain or Fever Stop: 09/29/21 04:41 Last Admin: 09/17/21 23:46 Dose: 650 mg Documented by: Albuterol (Albuterol 0.083% Nebu Soln 3 Ml Vial) 2.5 mg INH BIDR ALEX Stop: 09/29/21 06:59 Last Admin: 09/18/21 07:31 Dose: 2.5 mg Documented by: Aspirin (Aspirin 81 Mg Ectab) 81 mg PO DAILY [facility] Stop: 09/29/21 08:59 Last Admin: 09/18/21 09:00 Dose: 81 mg Documented by: Diclofenac Sodium (Diclofenac Sod 1% Gel 100 Gm Tube) 1 gm EXT QID PRN PRN Reason: Pain Stop: 09/29/21 04:41 Enoxaparin Sodium (Enoxaparin Inj 40 Mg/0.4 Ml Syr) 40 mg SQ Q24H ALEX Stop: 09/29/21 08:59 Last Admin: 09/04/21 10:43 Dose: Not Given Documented by: Furosemide (Furosemide 20 Mg Tab) 20 mg PO DAILY PRN PRN Reason: Fluid Retention Stop: 09/29/21 04:41 Guaifenesin/Dextromethorphan (Guaifenesin/Dextrom Syrup 200mg/20mg 10ml Udc) 10 ml PO Q6H PRN PRN Reason: Cough Stop: 10/09/21 10:36 Last Admin: 09/11/21 08:25 Dose: 10 ml Documented by: Lactobacillus Acidoph/Casei/Rhamnos (Advanced Probiotic 1250 Mg Capsule) 2 cap PO DAILY ALEX Stop: 09/29/21 08:59 Last Admin: 09/18/21 09:00 Dose: 2 cap Documented by: Nitroglycerin (Nitroglycerin Sl 0.4 Mg/Tab Tab) 0.4 mg SL UD PRN PRN Reason: Chest Pain Stop: 09/29/21 04:41 Ondansetron HCl (Ondansetron Inj 2 Mg/Ml 2 Ml Vial) 4 mg IV Q6H PRN PRN Reason: Nausea Stop: 09/29/21 04:41 Polyethylene Glycol (Polyethylene (Miralax) 17 Gm Pack) 17 gm PO DAILY PRN PRN Reason: Constipation Stop: 09/29/21 04:41 Pravastatin Sodium (Pravastatin Sod 40 Mg Tab) 40 mg PO HS ALEX Stop: 09/29/21 20:59 Last Admin: 09/17/21 20:50 Dose: 40 mg Documented by: Sertraline HCl (Sertraline Hcl 100 Mg Tablet) 100 mg PO QPM ALEX Stop: 09/29/21 20:59 Last Admin: 09/17/21 20:50 Dose: 100 mg Documented by: Sertraline HCl (Sertraline Hcl 50 Mg Tablet) 50 mg PO QPM ALEX Stop: 09/29/21 20:59 Last Admin: 09/17/21 20:50 Dose: 50 mg Documented by: Sodium Chloride (Sodium Chlor 7% 4 Ml Neb) 4 ml NEB BIDR ALEX Stop: 09/29/21 06:59 Last Admin: 09/18/21 07:31 Dose: 4 ml Documented by: Umeclidinium/Vilanterol (Umeclidinium/Vilanterol 62.5/25mcg 7 Puffs/Inhaler) 1 puffs INH DAILY [facility] Stop: 09/29/21 08:59 Last Admin: 09/18/21 09:00 Dose: 1 puffs Documented by: Vitamin D (Cholecalciferol 1,000 Units 25 Mcg Tab) 2,000 units PO QAM [facility] Stop: 09/29/21 08:59 Last Admin: 09/18/21 09:00 Dose: 2,000 units Documented by: (1) Bronchiectasis Bronchiectasis type: with acute exacerbation Qualified Code(s): J47.1 - Bronchiectasis with (acute) exacerbation (2) HTN (hypertension) Hypertension type: essential hypertension Qualified Code(s): I10 - Essential (primary) hypertension (3) Depression Depression Type: major depressive disorder Major depression recurrence: unspecified whether recurrent Active/Remission status: remission status unspecified Qualified Code(s): F32.9 - Major depressive disorder, single episode, unspecified
[2021-09-18] MEDS: PRAVASTATIN SOD 40 MG TAB PO SCH (22:06)
[2021-09-18] MEDS: SERTRALINE HCL 100 MG TABLET PO SCH (22:06)
[2021-09-18] MEDS: SERTRALINE HCL 50 MG TABLET PO SCH (22:06)
[2021-09-19] MEDS: ACETAMINOPHEN 325 MG TAB PO PRN (01:23)
[2021-09-19] MEDS: ALBUTEROL 0.083% NEBU SOLN 3 ML VIAL INH SCH (06:24)
[2021-09-19] MEDS: SODIUM CHLOR 7% 4 ML NEB NEB SCH (06:24)
[2021-09-19] MEDS: ADVANCED PROBIOTIC 1250 MG CAPSULE PO SCH (08:57)
[2021-09-19] MEDS: ASPIRIN 81 MG ECTAB PO SCH (08:57)
[2021-09-19] MEDS: CHOLECALCIFEROL 1,000 UNITS 25 MCG TAB PO SCH (08:57)
[2021-09-19] MEDS: UMECLIDINIUM/VILANTEROL 62.5/25MCG 7 PUFFS/INHALER INH SCH (08:58)
--- NOTE | 2021-09-19 09:39 | Hospitalist Progress Note ---
Date of Service September 19, 2021 Assessment & Plan (1) SARS-CoV-2 positive: Plan: h/o COVID infection in Nov 2020, Remains on room air. Continue with supportive management. Was on 2 L of oxygen overnight. Continue with [employer] inhalers. Follow-up with pulmonary medicine as an outpatient. No more respiratory symptoms Family is deciding between home versus senior care facility. Care management is intact to the family. Numbness also updated by me on 09/11. Remains asymptomatic from COVID-19 infection Has been taken out from isolation No more symptoms secondary to COVID-19 infection She will be transferred to [facility] this afternoon and no more Covid test required before transfer (2) Hematuria: Plan: CT ABD:The bladder is largely decompressed around a Patel. Hyperdense fluid is suggested within the bladder lumen and may represent blood clots, and there is also mild pericystic infiltration. Correlate with clinical findings and urinalysis. There is dependent airspace consolidation with tree-in-bud airspace opacities and mucous plugging at the lung bases. Correlate clinically for evidence of pneumonia/aspiration pneumonitis. 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 Mild infiltration around the aorta is similar to previous. There is increasing infiltration around the right iliac bypass. This is of indeterminant etiology/significance, and clinical correlation will be required. There are subacute/healing right pubic ring fractures. -Hold Aspirin for now Appreciate Urology Input Amatory appears to be better. Hemoglobin is stable. Patient will need voiding trial prior to discharge. Needs outpatient cystoscopy No more hematuria noted and catheter has been taken out Denies any more urinary symptoms and no more hematuria (3) Bronchiectasis: Plan: she is on chronic supplemental oxygen at home 2LPM. Multiple episodes of recurrent pneumonia this year. Evaluated by pulmonology this admission. There is no evidence of a COPD exacerbation. Pt is on Anoro Elilipta at home which is being continued. Mucinex BID recommended. Pulmonary toilet wtih flutter valve, ambulate as tolerated. Continue on bronchodilators. Denies any symptoms at rest-no cough, shortness of breath No symptoms of fever, chills, cough or shortness of breath No respiratory symptoms (4) COPD exacerbation: Plan: No signs of Exacerbation (5) HTN (hypertension): Plan: controlled, cont home medications. Blood pressure remains on the lower side (6) Depression: Plan: cont sertraline per home regimen. No acute confusion (7) Dementia: Plan: mentating at her baseline. No acute delirium (8) Weakness: Plan: Right Pubic Ring Fracture after a fall in Jul 2021. Evaluated by ortho last admission and advance WBAT. Weakness likely multifactorial related to current illness and hospitalization and multiple comorbidities including possible lung cancer diagnosis, cont PT/OT. Awaiting placement Will be discharged to [facility] tomorrow (9) Pulmonary nodules: Plan: Pulmonary nodules--suspicious for neoplastic process, fabrice RUL mass which has significantly increased in size since Nov 2020 per previous notes. Bronchoscopy considered however, this was not done because family didn't want to be aggressive per record review. Palliative discussions took place last admission (early Aug 2021) and code statu s still remains full. Malignancy is a likely etiology. Palliative medicine has been consulted. Plans are to possible discharge to hospice. Ongoing discussions among family and team. She will be transferred to [facility] this afternoon (10) DVT prophylaxis: Plan: SCDs, chemoprophylaxis held in setting of hematuria Full Code Dispo-Home versus senior care facility Admission and Anticipated Discharge Date Admission Date: August 30, 2021 Subjective 09/13/2021 The patient was seen and examined in medical telemetry unit She has been feeling much better denies any symptoms Remains weak and lethargic 09/14/2021 The patient was seen and examined in medical telemetry unit She has been stable and denies any symptoms She remains generally weak but denies any chest pain, palpitation, shortness of breath, abdominal pain, nausea and or vomiting 09/15/2021 The patient was seen and examined in medical telemetry unit She remained stable and denies any symptoms Awaiting to be placed 09/16/2021 The patient was seen and examined in medical telemetry unit She has been waiting to be placed Denies any symptoms 09/17/2021 The patient was seen and examined in medical telemetry unit She remained stable and denies any symptoms Pleasantly confused 09/18/2021 The patient was seen and examined in medical telemetry unit She has been stable and denies any symptoms 09/19/2021 The patient was seen and examined in medical telemetry unit She has been stable without any symptoms Denies any symptoms Review of Systems Review of Systems: All systems reviewed and are unremarkable except as noted below Respiratory: No shortness of breath at rest Gastrointestinal: No more abdominal discomfort Physical Exam Physical Exam: Lying in bed comfortably Constitutional: + thin; not ill appearing Eyes: PERRL, conjunctivae normal, anicteric sclerae ENMT: external ear and nose normal, oropharynx normal Neck: trachea midline, no thyromegaly Respiratory: + cough; no respiratory distress Auscultation: + diminished lung sounds and + crackles (Crackles bibasally) Cardiovascular: Rate/Rhythm: regular rate and regular rhythm; not tachycardic Heart Sounds: normal S1 and normal S2; no murmur Extremities: no edema Gastrointestinal (Abdomen): Inspection/Auscultation: normal bowel sounds; abdomen not distended Percussion/Palpation: abdomen soft; abdomen nontender Musculoskeletal: No acute arthritis in any joint Neurologic: Alert and awake. Pleasantly confused. Moving all limbs equally. Generally weak Lymphatic: no cervical or axillary lymphadenopathy Results & Data Results & Data ([facility]) Vital Signs (Past 12 Hours) Vital Signs Temp Pulse Pulse Resp BP Pulse Ox 09/19/21 07:41 37 C 90 17 83/52 L 93 09/19/21 06:25 93 H 18 96 09/19/21 00:43 94 H 09/18/21 23:08 36.8 C 106 H 17 111/79 96 Medications Administered Current Inpatient Medications Acetaminophen (Acetaminophen 325 Mg Tab) 650 mg PO Q4H PRN PRN Reason: Pain or Fever Stop: 09/29/21 04:41 Last Admin: 09/19/21 01:23 Dose: 650 mg Documented by: Albuterol (Albuterol 0.083% Nebu Soln 3 Ml Vial) 2.5 mg INH BIDR ALEX Stop: 09/29/21 06:59 Last Admin: 09/19/21 06:24 Dose: 2.5 mg Documented by: Aspirin (Aspirin 81 Mg Ectab) 81 mg PO DAILY ALEX Stop: 09/29/21 08:59 Last Admin: 09/19/21 08:57 Dose: 81 mg Documented by: Diclofenac Sodium (Diclofenac Sod 1% Gel 100 Gm Tube) 1 gm EXT QID PRN PRN Reason: Pain Stop: 09/29/21 04:41 Enoxaparin Sodium (Enoxaparin Inj 40 Mg/0.4 Ml Syr) 40 mg SQ Q24H ALEX Stop: 09/29/21 08:59 Last Admin: 09/04/21 10:43 Dose: Not Given Documented by: Furosemide (Furosemide 20 Mg Tab) 20 mg PO DAILY PRN PRN Reason: Fluid Retention Stop: 09/29/21 04:41 Guaifenesin/Dextromethorphan (Guaifenesin/Dextrom Syrup 200mg/20mg 10ml Udc) 10 ml PO Q6H PRN PRN Reason: Cough Stop: 10/09/21 10:36 Last Admin: 09/11/21 08:25 Dose: 10 ml Documented by: Lactobacillus Acidoph/Casei/Rhamnos (Advanced Probiotic 1250 Mg Capsule) 2 cap PO DAILY ALEX Stop: 09/29/21 08:59 Last Admin: 09/19/21 08:57 Dose: 2 cap Documented by: Nitroglycerin (Nitroglycerin Sl 0.4 Mg/Tab Tab) 0.4 mg SL UD PRN PRN Reason: Chest Pain Stop: 09/29/21 04:41 Ondansetron HCl (Ondansetron Inj 2 Mg/Ml 2 Ml Vial) 4 mg IV Q6H PRN PRN Reason: Nausea Stop: 09/29/21 04:41 Polyethylene Glycol (Polyethylene (Miralax) 17 Gm Pack) 17 gm PO DAILY PRN PRN Reason: Constipation Stop: 09/29/21 04:41 Pravastatin Sodium (Pravastatin Sod 40 Mg Tab) 40 mg PO HS ALEX Stop: 09/29/21 20:59 Last Admin: 09/18/21 22:06 Dose: 40 mg Documented by: Sertraline HCl (Sertraline Hcl 100 Mg Tablet) 100 mg PO QPM ALEX Stop: 09/29/21 20:59 Last Admin: 09/18/21 22:06 Dose: 100 mg Documented by: Sertraline HCl (Sertraline Hcl 50 Mg Tablet) 50 mg PO QPM ALEX Stop: 09/29/21 20:59 Last Admin: 09/18/21 22:06 Dose: 50 mg Documented by: Sodium Chloride (Sodium Chlor 7% 4 Ml Neb) 4 ml NEB BIDR ALEX Stop: 09/29/21 06:59 Last Admin: 09/19/21 06:24 Dose: 4 ml Documented by: Umeclidinium/Vilanterol (Umeclidinium/Vilanterol 62.5/25mcg 7 Puffs/Inhaler) 1 puffs INH DAILY ALEX Stop: 09/29/21 08:59 Last Admin: 09/19/21 08:58 Dose: 1 puffs Documented by: Vitamin D (Cholecalciferol 1,000 Units 25 Mcg Tab) 2,000 units PO QAM ALEX Stop: 09/29/21 08:59 Last Admin: 09/19/21 08:57 Dose: 2,000 units Documented by: (1) Bronchiectasis Bronchiectasis type: with acute exacerbation Qualified Code(s): J47.1 - Bronchiectasis with (acute) exacerbation (2) HTN (hypertension) Hypertension type: essential hypertension Qualified Code(s): I10 - Essential (primary) hypertension (3) Depression Depression Type: major depressive disorder Major depression recurrence: unspecified whether recurrent Active/Remission status: remission status unspecified Qualified Code(s): F32.9 - Major depressive disorder, single episode, unspecified
--- NOTE | 2021-09-20 09:28 | Discharge Summary ---
Date of Service September 20, 2021 Admission HPI Per Admitting Provider DICTATED BY:Emanuel Harrison MD DATE OF ADMISSION: 08/30/2021. CHIEF COMPLAINT: Fever, urinary tract infection. HISTORY OF PRESENT ILLNESS: This is an 81-year-old female with past medical history significant for oxygen-dependent COPD, prior COVID pneumonia in 11/2020 with recurrent episodes of pneumonia since then, history of chronic kidney disease, bronchiectasis, depression, dementia, abdominal aortic aneurysm, hypertension, hyperlipidemia, suspected asthma, peripheral vascular disease, was brought in by daughter because of new fever. The patient has dementia and as per daughter, she is sometimes oriented, sometimes not, sometimes even forgets the family members, but her appetite is okay and she eats fine. When she was in the hospital here last admission, she fell and has a pelvic fracture since then she is not ambulating. Any movement is causing pain and she is mostly moving her bowels and bladder in the diapers. Again, she developed fever today. The family was worried about UTI and brought her here. They also want her to be in rehab placement. Last admission, the patient also was treated for pneumonia with 5 days of doxycycline and cultures grew gram-negative bacteria. She was discharged on Augmentin and the plan was to follow up with chest x-ray in 4 to 6 weeks. She also has history of sputum culture growing Aspergillus fumigatus, but thought to be likely colonizer and voriconazole was stopped in the last admission. As per the family, the patient has a chronic cough. The patient denies any chest pain or abdominal pain or headache. No nausea, no vomiting. As per daughter, the patient was constipated. She has a small amount of bowel movement a couple of days ago, which was seemed to be loose. No burning micturition. The patient is currently resting comfortably, looks stable, saturating fine on 2 L oxygen, which she uses at home. Her COVID test is positive again, but as per daughter, she was not exposed to any of the COVID patients. Admission Exam Per Admitting Provider GENERAL: The patient is of moderate build, not in acute distress. VITAL SIGNS: Temperature 38.2, pulse 94, respiratory rate 19, blood pressure 101/60, oxygen 95% on 2 L. HEENT: Pupils equal, round and reactive to light. Oral mucosa moist. NECK: No JVD, no neck masses. CARDIOVASCULAR: S1 and S2 heard, regular rhythm. No murmur, no gallop. RESPIRATORY: Normal AP diameter. No accessory muscle use. No wheezing, no crackles. ABDOMEN: Soft, bowel sounds present, nontender, no distention. CENTRAL NERVOUS SYSTEM: Alert and awake. Speech is clear. No facial droop. Obeys simple commands. Moves extremities. EXTREMITIES: No edema, no erythema. Principal Diagnosis Asymptomatic COVID-19 infection, out of isolation, hematuria-resolved, bronchiectasis, depression, history of pulmonary nodule-no further investigation Discharge Exam Lying in bed comfortably Constitutional + thin; not ill appearing Eyes PERRL, conjunctivae normal, anicteric sclerae ENMT external ear and nose normal, oropharynx normal Neck trachea midline, no thyromegaly Respiratory + cough; no respiratory distress Auscultation: + diminished lung sounds and + crackles (Crackles bibasally) Cardiovascular Rate/Rhythm: regular rate and regular rhythm; not tachycardic Heart Sounds: normal S1 and normal S2; no murmur Extremities: no edema Gastrointestinal (Abdomen) Inspection/Auscultation: normal bowel sounds; abdomen not distended Percussion/Palpation: abdomen soft; abdomen nontender Lymphatic no cervical or axillary lymphadenopathy Discharge Data Allergies Allergy/AdvReac Type Severity Reaction Status Date / Time No Known Allergies Allergy Verified 08/29/21 17:36 Consultations 08/29/21 21:58 ED Decision to Admit Stat 08/30/21 08:00 Consult Pulmonology Routine 09/04/21 16:07 Consult Urology Routine 09/10/21 18:44 Consult Palliative Care Routine Ordered Studies 09/04/21 11:30 CT abd pelvis wo con Urgent Hospital Course (1) SARS-CoV-2 positive: h/o COVID infection in Nov 2020, Remains on room air. Continue with supportive management. Was on 2 L of oxygen overnight. Continue with [employer] inhalers. Follow-up with pulmonary medicine as an outpatient. No more respiratory symptoms Family is deciding between home versus detention facility. Care management is intact to the family. Numbness also updated by me on 09/11. Remains asymptomatic from COVID-19 infection Has been taken out from isolation No more symptoms secondary to COVID-19 infection She will be transferred to [facility] this afternoon and no more Covid test required before transfer (2) Hematuria: CT ABD:The bladder is largely decompressed around a Patel. Hyperdense fluid is suggested within the bladder lumen and may represent blood clots, and there is also mild pericystic infiltration. Correlate with clinical findings and urinalysis. There is dependent airspace consolidation with tree-in-bud airspace opacities and mucous plugging at the lung bases. Correlate clinically for evidence of pneumonia/aspiration pneumonitis. 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 Mild infiltration around the aorta is similar to previous. There is increasing infiltration around the right iliac bypass. This is of indeterminant etiology/significance, and clinical correlation will be required. There are subacute/healing right pubic ring fractures. -Hold Aspirin for now Appreciate Urology Input Amatory appears to be better. Hemoglobin is stable. Patient will need voiding trial prior to discharge. Needs outpatient cystoscopy No more hematuria noted and catheter has been taken out Denies any more urinary symptoms and no more hematuria (3) Bronchiectasis: she is on chronic supplemental oxygen at home 2LPM. Multiple episodes of recurrent pneumonia this year. Evaluated by pulmonology this admission. There is no evidence of a COPD exacerbation. Pt is on Anoro Elilipta at home which is being continued. Mucinex BID recommended. Pulmonary toilet wtih flutter valve, ambulate as tolerated. Continue on bronchodilators. Denies any symptoms at rest-no cough, shortness of breath No symptoms of fever, chills, cough or shortness of breath No respiratory symptoms (4) COPD exacerbation: No signs of Exacerbation (5) HTN (hypertension): controlled, cont home medications. Blood pressure remains on the lower side (6) Depression: cont sertraline per home regimen. No acute confusion (7) Dementia: mentating at her baseline. No acute delirium (8) Weakness: Right Pubic Ring Fracture after a fall in Jul 2021. Evaluated by ortho last admission and advance WBAT. Weakness likely multifactorial related to current illness and hospitalization and multiple comorbidities including possible lung cancer diagnosis, cont PT/OT. Awaiting placement Will be discharged to [facility] tomorrow (9) Pulmonary nodules: Pulmonary nodules--suspicious for neoplastic process, fabrice RUL mass which has significantly increased in size since Nov 2020 per previous notes. Bronchoscopy considered however, this was not done because family didn't want to be aggressive per record review. Palliative discussions took place last admission (early Aug 2021) and code status still remains full. Malignancy is a likely etiology. Palliative medicine has been consulted. Plans are to possible discharge to hospice. Ongoing discussions among family and team. She will be transferred to [facility] this afternoon (10) DVT prophylaxis: SCDs, chemoprophylaxis held in setting of hematuria Full Code Dispo-Home versus detention facility Total Time Total Time Spent Total Time Spent (In Minutes): 35 minutes Discharge Plan Discharge Items Patient Disposition: Transfer Half-Way Fac Reason For Visit: FEVER, UTI Discharge Diagnosis: Asymptomatic COVID-19 infection, out of isolation, hematuria-resolved, bronchiectasis, depression, history of pulmonary nodule-no further investigation Condition on Discharge: Fair Activity: Resume your previous activity Non-emergency contact: Primary Care Provider Call non-emergency contact if: you have any medication questions and your symptoms worsen Follow-up/Referrals: Raz Hayes MD [Primary Care Provider] - 09/25/21 10:00 am (arrive by 9:45 am) Diet: Regular Diet Comment: Minced and moist Addtl Attending Provider Instructions: Please take precautions to avoid fall Please ask for help when you want to move around especially when coming out of bed No change in new medication Pending Studies at Discharge: No Stand-Alone Forms: [facility] [email or web address] Skilled Items Patient informed of condition?: Yes DNR: Yes Discharge Level of Care: Skilled Communicable Disease: No Discharge Prognosis: Stable Lines: None Urinary Catheter: No Medications and DC Order Prescriptions: Continued pravastatin 40 mg tablet 40 mg PO HS RF: 0 sertraline 100 mg tablet 100 mg PO QPM RF: 0 sertraline 50 mg tablet 50 mg PO QPM RF: 0 albuterol sulfate 2.5 mg /3 mL (0.083 %) solution for nebulization 2.5 mg inhalation DIRECTED RF: 0 cholecalciferol (vitamin D3) [Vitamin D3] 50 mcg (2,000 unit) Capsule 50 mcg PO QAM RF: 0 guaifenesin [Mucinex] 600 mg Tablet Extended Release 12hr 1,200 mg PO BID RF: 0 diclofenac sodium 1 % gel 1 ea TOPICAL QID PRN (Reason: Pain) RF: 0 furosemide 20 mg tablet 20 mg PO DAILY PRN (Reason: Fluid Retention) RF: 0 Anoro Ellipta 62.5-25 mcg/actuation Blister With Device 1 ea inhalation DAILY Qty: 14 RF: 0 aspirin 81 mg Tablet,Delayed Release (Dr/Ec) 81 mg PO DAILY RF: 0 acetylcysteine 200 mg/mL (20 %) solution 5 ml inhalation Q12H RF: 0 sodium chloride 7 % solution for nebulization 4 ml NEB BID RF: 0 Discontinued amoxicillin-pot clavulanate [Augmentin] 875-125 mg Tablet 1 tab PO BIDM 7 Days Qty: 14 RF: 0 Discharge Orders: Discharge Order (Routine); Ordered 09/19/21 Ordered By: Pb Bae Admission Data Admit Date/Time: 08/30/21 00:40 Attending Provider: Pb Bae Admit Provider: Emanuel Harrison Primary Care Provider: Raz Hayes Other Providers: Dhruv Jarvis [facility] ; [facility] ; Marcia Hirsch ; Emanuel Harrison ; Rufus Ni ; Ata Randhawa ; Jerman Camarillo ; Ankush Urbano ; Harriet Mota ; Kana Barnes ; Edyta Tyler Melissa A. ; Mey Pan ; Duglas Meier ; Jose Fallon ; Maia Johnson ; Maria Teresa Pan ; Cameron Rose ; Judy Fierro ; Naren Castro Other Interventions: Discharge Summary Assessment (RN) Last Done: 09/19/21 11:03
--- NOTE | 2021-09-25 14:04 | Coding Query ---
To promote full compliance with coding requirements relating to patient care, provider participation is requested in all cases of clinical program coordinator uncertainty. Please assist us with the question(s) below: Coding Question(s): The diagnosis(es) below was documented in the early chart, then subsequently fell off all further documentation. Please indicate if it is still a possible diagnosis or ruled out. Physician's Response(s): BRONCHIECTASIS WITH ACUTE EXACERBATION - Regarding the Acute Exacerbation specificity, documented on Pulmonary Progress Note 08/30. ( ) Diagnosed and POA ( ) Diagnosed and not POA ( ) Ruled out ( + ) Other (please specify);Antibiotic was placed empirically.No acute Bronchitis Possible UTI - documented in H&P and the Urology Consultation documents, " Patient has had a urine culture this admission which was positive for yeast. She has been treated with antibiotics in the form of Ceftin." ( ) Diagnosed and POA ( ) Diagnosed and not POA ( ) Ruled out ( + ) Other (please specify): Culture was negative and Yeast was not treated MTDD
== END 2021-09-19 12:39 | DRG 177 ==
LOC: ED 16:59 → SUATTDRO 08-30 00:40 → 2N 08-30 00:40 → 2W 09-18 19:11

== ENCOUNTER 2021-10-08 20:27 | Inpatient (IN) ==
--- NOTE | 2021-10-08 21:15 | Emergency Department Note ---
Impression & Plan Spleen hematoma without rupture of capsule, without open wound into cavity, Symptomatic anemia, Hemothorax on right, Fracture of pubic ramus ED Provider Note NAME: MALISSA CORRAL AGE: 81 SEX: F : 1940 ARRIVES VIA: Walk-In INFORMANT: Patient, ED PROVIDER(S): Oc Lua MD Chief Complaint: Weakness, low hemoglobin HPI: Patient does present from home with one of her daughters. The patient recently was discharged from rehab approximately 1 week prior and had been home. The patient was doing relatively well getting up and about but seemed to have some weakness which began on and is gotten progressively worse. Home health was in to see the patient today did obtain blood work which showed that the patient had a low hemoglobin of less than 7 as well as hyperkalemia at 6.4. Patient does not have any bloody stools or diarrhea or vomiting. No hematemesis. The patient takes a baby aspirin but does not take any blood thinning medications. Patient has a known history of COPD and bronchiectasis has been receiving some nebulizer treatments. The patient has had some worsening coarse breath sounds. The patient has had increasing fatigue and weakness to the point where the patient had been walking without assistance with a walker but now requires 2 person assist at all times. Patient has any fevers chills or chest pains. Patient denies any abdominal pain nausea vomiting. Pat royer has had slight increase in liquids today. Patient is reportedly making urine. The patient does have a prior history of a pelvis fracture. ROS: See HPI for pertinent positives and negatives. A total of 10 systems were reviewed and otherwise negative. Past medical history: See below Surgical history: See below Social history: See below Physical Exam: GENERAL: Fatigued in appearance,NAD, wearing glasses, wearing a mask, non-toxic. EYE EXAM: Normal conjunctiva. PERRL, no anisocoria and EOM's grossly intact w/o pain. NECK: Supple, no nuchal rigidity, no adenopathy, non-tender. No signs of meningismus. LUNGS: Clear to auscultation. Normal chest wall mechanics. HEART: NSR, no MRG. ABDOMEN: Abdomen soft, non-tender, normo-active bowel sounds, no masses, no rebound or guarding. BACK: No CVA TTP. SKIN: No rashes and no bruising. Rectal: No obvious anal fissures or hemorrhoids, no bright red blood or melenic stool, heme-negative. UPPER EXTREMITIES: Upper extremities are grossly normal. LOWER EXTREMITIES: Grossly normal, trace bilateral pretibial edema without any calf pain or asymmetry NEURO EXAM: A&O x3, cranial nerves II-XII grossly intact, normal speech, moves all 4 extremities on command w/o issue. Differential diagnoses: Infection, dehydration, metabolic abnormality, hy po/hyperglycemia, electrolyte disturbance, anemia, hypoxia, cardiac sources, intracerebral event, toxicologic, neurologic, as well as other pathologies. Course: Patient was seen and evaluated the bedside. Full history physical exam was performed. EKG interpreted by me Normal sinus rhythm, rate of 78, normal intervals, left axis deviation, T wave inversion in lead III not in contiguous leads. Imaging Studies: See Below Cardiac monitoring: An order was placed for continuous cardiac monitoring. The monitor shows a rate of 72 with sinus rhythm. MDM: Patient was seen due to concern for decreasing hemoglobin. Rectal exam was performed with a chemical plant technical director and the patient had heme-negative stool. Blood work did confirm that the patient did have a low hemoglobin. The patient does have elevated BUN to creatinine ratio. Patient was consented for blood and this was ordered. Patient was also noted to have significant transaminitis and thus a CT of the abdomen pelvis was ordered. The patient does have concerning findings on CT abdomen pelvis concerning for 10 x 8 x 11 cm hemorrhage present within the spleen. This is a noncontrast study but I did speak with the radiologist Dr. Bass who believes that this is contained within the spleen. She also believes that the patient has a small right hemothorax. Subacute superior and inferior right pubic rami fractures. I did speak with the on-call general surgeon Dr. Cameron who did evaluate the patient believes that the patient may be monitored and admitted to the medical service and they will be on his consult. I did speak with the filling operator DAGO Cabrera. I also did speak with the forder operator Dr. Burgos who recommended a 2:1 ratio of PRBCs to FFP 1 g of TXA as well as the vitamin K that had already been ordered. I did order these additional items with the section of the PRBCs as the patient has not received those yet. I did convey this to the hospitalist Dr. Pickard and the patient was admitted to the medicine service. Critical Care: I have personally spent 95 minutes of critical care time in direct management of this patient. This includes bedside care, interpretation of diagnostic studies, and testing, discussion with consultants, patient, and family members, and other require inpatient management activities. This 95 minutes is in excess of all separately billable procedures. Past Med/Surg History Medical History AAA (abdominal aortic aneurysm) "s/p repair of ruptured AAA in 2010" Bronchiectasis CKD (chronic kidney disease), stage III COPD (chronic obstructive pulmonary disease) Dementia Depression Female stress incontinence H/O: CVA (cerebrovascular accident) Hip fracture History of COVID-19 History of pulmonary embolism HTN (hypertension) Hyperlipidemia Palliative care encounter Palliative care encounter Peripheral vascular disease Pulmonary nodule Recurrent pneumonia SARS-CoV-2 positive Tobacco use disorder Weakness Surgical History S/P AAA repair "s/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 Desir with bifurcated graft, left femoral thromboendarterectomy with patch angioplasty, right femoral thromboendarterectomy, and right iliofemoral bypass" S/P laparotomy "10/16/11- abdominal exploration, wound vac placement; 10/18/11- abdominal washout and closure. 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 Beliefs That Will Affect Care: None marital status: 2 daughters marital status details: of COVID in Nov 2020 Current Living Situation: Family Current Living Situation Comment: Lives w/ daughter Feels Safe at Home: Yes Assistive Devices: Denture - Upper, Glasses and Walker Allergies Allergies Allergy/AdvReac Type Severity Reaction Status Date / Time No Known Allergies Allergy Verified 10/08/21 23:38 Home Meds Home Medications Medication Instructions Recorded Confirmed pravastatin 40 mg tablet 40 mg PO HS 09/21/19 10/08/21 sertraline 100 mg tablet 100 mg PO QPM 09/21/19 10/08/21 sertraline 50 mg tablet 50 mg PO QPM 09/21/19 10/08/21 cholecalciferol (vitamin D3) 50 50 mcg PO QAM 02/14/21 10/08/21 mcg (2,000 unit) capsule (Vitamin D3) diclofenac sodium 1 % topical gel 1 ea TOPICAL QID PRN 02/14/21 10/08/21 guaifenesin 600 mg tablet, 1,200 mg PO BID 02/14/21 10/08/21 extended release 12 hr (Mucinex) furosemide 20 mg tablet 20 mg PO DAILY PRN 08/14/21 10/08/21 acetylcysteine 200 mg/mL (20 %) 2.5 ml INHALATION Q12H 08/29/21 10/08/21 solution aspirin 81 mg tablet,delayed 81 mg PO DAILY 08/29/21 10/08/21 release Lactobacillus rhamnosus GG 10 1 cap PO DAILY 10/08/21 10/08/21 billion cell capsule (Culturelle) albuterol sulfate 2.5 mg INHALATION QID PRN 10/08/21 10/08/21 albuterol sulfate 90 mcg/actuation 90 mcg INHALATION UD PRN 10/08/21 10/08/21 aerosol inhaler ascorbic acid (vitamin C) 500 mg 500 mg PO DAILY 10/08/21 10/08/21 tablet (Vitamin C) azithromycin 250 mg tablet 250 - 500 mg PO DAILY 10/08/21 10/08/21 docusate sodium 100 mg tablet 100 mg PO BID 10/08/21 10/08/21 multivitamin 1 tab PO DAILY 10/08/21 10/08/21 polyethylene glycol 3350 17 gram 17 g PO DAILY 10/08/21 10/08/21 oral powder packet (Miralax) sodium chloride 0.9 % for 3 ml INHALATION BID 10/08/21 10/08/21 nebulization Previous Rx's Medication Instructions Recorded umeclidinium 62.5 mcg-vilanterol 1 ea INHALATION DAILY #14 ea 08/17/21 25 mcg/actuation powdr for inhalation (Anoro Ellipta) Results & Data (ED) Vital Signs Vital Signs - 24 hr 10/08/21 20:47 10/09/21 00:17 10/09/21 00:32 Temperature 36.2 C L 37.2 C 37.0 C Temperature Source Temporal Artery Scan Oral Oral Pulse Rate 73 78 74 Pulse Rhythm Regular Pulse Strength Normal Respiratory Rate 19 16 18 Respiratory Effort / Characteristics Non-Labored Spontaneous Respiratory Depth Normal Blood Pressure 91/48 L 110/67 113/69 Blood Pressure Mean 62 81 83 Blood Pressure Position Lying Pulse Oximetry 93 99 94 Oxygen Delivery Method Room Air Sepsis Recent Fever Within 48 Hours No Sepsis New/Unexplained Change in Mental Status N/A Sepsis Action Taken by Nursing No Action Required Home Medications Current Medication List: was personally reviewed by me Laboratory Data Attestation: I reviewed the patient's lab results. Result diagrams: 10/08/21 20:56 10/08/21 20:56 Lab Results 10/08/21 10/08/21 10/08/21 Range/Units 20:56 20:56 20:56 WBC 17.87 H (4.8-10.8) K/uL RBC 2.23 L (4.2-5.4) M/uL Hgb 6.7 L* (12.0-16.0) g/dL Hct 20.8 L* (37-47) % MCV 93.3 (80-100) fL MCH 30.0 (25-34) pg MCHC 32.2 (32-36) g/dL RDW Std Deviation 53.4 H (36.4-46.3) fL RDW Coeff of Wayne 16.2 H (11.5-14.5) % Plt Count 300 (130-400) K/uL MPV 9.3 (7.4-10.4) fL Absolute Nucleated RBC 0.07 H (0-0) K/uL Nucleated RBC % (auto) 0.4 % PT 18.2 H (9.0-12.0) Seconds INR 1.9 H (0.9-1.1) APTT 27.4 (21.0-31.0) Seconds PTT Ratio 1.0 Sodium (136-145) mmol/L Potassium (3.5-5.1) mmol/L Chloride (98-107) mmol/L Carbon Dioxide (21-32) mmol/L Anion Gap (3-11) BUN (7-18) mg/dl Creatinine (0.6-1.2) mg/dl Est Cr Clr Drug Dosing Est GFR ( Amer) ml/min Est GFR (Non-Af Amer) ml/min BUN/Creatinine Ratio (10-20) Glucose (70-99) mg/dl Osmolality (280-300) mOsm/kg Calcium (8.5-10.1) mg/dl Magnesium (1.8-2.4) mg/dl Total Bilirubin (0.2-1) mg/dl AST (15-37) U/L ALT (12-78) U/L Alkaline Phosphatase (45-117) U/L Total Protein (6.4-8.2) gm/dl Albumin (3.4-5.0) gm/dl Globulin (2.5-4.0) gm/dl Albumin/Globulin Ratio (0.9-2) Procalcitonin (0-0.5) ng/ml TSH (0.300-4.500) uIu/ml Nasal Screen MRSA (PCR) (Negative) SARS-CoV-2, RNA, NAAT (NEGATIVE) Blood Type O Positive Antibody Screen NEGATIVE Crossmatch See Detail 10/08/21 10/08/21 10/08/21 Range/Units 20:56 22:13 22:13 WBC (4.8-10.8) K/uL RBC (4.2-5.4) M/uL Hgb (12.0-16.0) g/dL Hct (37-47) % MCV (80-100) fL MCH (25-34) pg MCHC (32-36) g/dL RDW Std Deviation (36.4-46.3) fL RDW Coeff of Wayne (11.5-14.5) % Plt Count (130-400) K/uL MPV (7.4-10.4) fL Absolute Nucleated RBC (0-0) K/uL Nucleated RBC % (auto) % PT (9.0-12.0) Seconds INR (0.9-1.1) APTT (21.0-31.0) Seconds PTT Ratio Sodium 129 L (136-145) mmol/L Potassium 4.9 (3.5-5.1) mmol/L Chloride 96 L (98-107) mmol/L Carbon Dioxide 20 L (21-32) mmol/L Anion Gap 13.0 H (3-11) BUN 49 H (7-18) mg/dl Creatinine 1.43 H (0.6-1.2) mg/dl Est Cr Clr Drug Dosing Not Reportable Est GFR ( Amer) 39.4 ml/min Est GFR (Non-Af Amer) 34.0 ml/min BUN/Creatinine Ratio 34.3 H (10-20) Glucose 95 (70-99) mg/dl Osmolality (280-300) mOsm/kg Calcium 8.1 L (8.5-10.1) mg/dl Magnesium 2.7 H (1.8-2.4) mg/dl Total Bilirubin 1.1 H (0.2-1) mg/dl AST 645 H (15-37) U/L ALT 437 H (12-78) U/L Alkaline Phosphatase 197 H (45-117) U/L Total Protein 6.5 (6.4-8.2) gm/dl Albumin 2.6 L (3.4-5.0) gm/dl Globulin 3.9 (2.5-4.0) gm/dl Albumin/Globulin Ratio 0.7 L (0.9-2) Procalcitonin (0-0.5) ng/ml TSH 2.750 (0.300-4.500) uIu/ml Nasal Screen MRSA (PCR) Negative (Negative) SARS-CoV-2, RNA, NAAT NEGATIVE (NEGATIVE) Blood Type Antibody Screen Crossmatch 10/08/21 10/08/21 Range/Units 22:48 22:48 WBC (4.8-10.8) K/uL RBC (4.2-5.4) M/uL Hgb (12.0-16.0) g/dL Hct (37-47) % MCV (80-100) fL MCH (25-34) pg MCHC (32-36) g/dL RDW Std Deviation (36.4-46.3) fL RDW Coeff of Wayne (11.5-14.5) % Plt Count (130-400) K/uL MPV (7.4-10.4) fL Absolute Nucleated RBC (0-0) K/uL Nucleated RBC % (auto) % PT (9.0-12.0) Seconds INR (0.9-1.1) APTT (21.0-31.0) Seconds PTT Ratio Sodium (136-145) mmol/L Potassium (3.5-5.1) mmol/L Chloride (98-107) mmol/L Carbon Dioxide (21-32) mmol/L Anion Gap (3-11) BUN (7-18) mg/dl Creatinine (0.6-1.2) mg/dl Est Cr Clr Drug Dosing Est GFR ( Amer) ml/min Est GFR (Non-Af Amer) ml/min BUN/Creatinine Ratio (10-20) Glucose (70-99) mg/dl Osmolality 291 (280-300) mOsm/kg Calcium (8.5-10.1) mg/dl Magnesium (1.8-2.4) mg/dl Total Bilirubin (0.2-1) mg/dl AST (15-37) U/L ALT (12-78) U/L Alkaline Phosphatase (45-117) U/L Total Protein (6.4-8.2) gm/dl Albumin (3.4-5.0) gm/dl Globulin (2.5-4.0) gm/dl Albumin/Globulin Ratio (0.9-2) Procalcitonin 0.45 (0-0.5) ng/ml TSH (0.300-4.500) uIu/ml Nasal Screen MRSA (PCR) (Negative) SARS-CoV-2, RNA, NAAT (NEGATIVE) Blood Type Antibody Screen Crossmatch Administered Medications Discontinued Medications Sodium Chloride (Nss 1000ml) 500 mls @ 999 mls/hr IV .Q31M ONE Stop: 10/08/21 22:23 Last Infusion: 10/08/21 23:53 Dose: 0 mls/hr Documented by: [id number] Admin: 10/08/21 22:46 Dose: 999 mls/hr Documented by: [id number] Piperacillin Sod/Tazobactam Sod (Zosyn) 4.5 gm in 120 mls @ 240 mls/hr IV NOW ONE Stop: 10/08/21 22:23 Last Infusion: 10/09/21 00:36 Dose: 0 mls/hr Documented by: [id number] Admin: 10/08/21 23:36 Dose: 240 mls/hr Documented by: [id number] Phytonadione 10 mg/ Sodium (Chloride) 51 mls @ 102 mls/hr IV ONE ONE Stop: 10/09/21 00:18 Last Admin: 10/09/21 00:37 Dose: 102 mls/hr Documented by: [id number] Discharge Plan Visit Data Chief Complaint: Abnormal Labs/Diagnostic Testing Stated Complaint: HEMOGLOBIN 6.4,WEAK,CAN'T STAND ON OWN,REF BY DOC ED Provider: Oc Lua Discharge Problem: Spleen hematoma without rupture of capsule, without open wound into cavity, Symptomatic anemia, Hemothorax on right, Fracture of pubic ramus Patient Disposition: Admitted As Inpatient Forms Stand Alone Forms: [facility] Prescriptions Prescriptions: No Action pravastatin 40 mg tablet 40 mg PO HS RF: 0 sertraline 100 mg tablet 100 mg PO QPM RF: 0 sertraline 50 mg tablet 50 mg PO QPM RF: 0 cholecalciferol (vitamin D3) [Vitamin D3] 50 mcg (2,000 unit) Capsule 50 mcg PO QAM RF: 0 guaifenesin [Mucinex] 600 mg Tablet Extended Release 12hr 1,200 mg PO BID RF: 0 diclofenac sodium 1 % gel 1 ea TOPICAL QID PRN (Reason: Pain) RF: 0 furosemide 20 mg tablet 20 mg PO DAILY PRN (Reason: Fluid Retention) RF: 0 Anoro Ellipta 62.5-25 mcg/actuation Blister With Device 1 ea inhalation DAILY Qty: 14 RF: 0 aspirin 81 mg Tablet,Delayed Release (Dr/Ec) 81 mg PO DAILY RF: 0 acetylcysteine 200 mg/mL (20 %) solution 2.5 ml inhalation Q12H RF: 0 multivitamin Tablet 1 tab PO DAILY RF: 0 albuterol sulfate 2.5 mg /3 mL (0.083 %) solution for nebulization 2.5 mg inhalation QID PRN (Reason: sob) RF: 0 polyethylene glycol 3350 [Miralax] 17 gram Powder In Packet 17 g PO DAILY RF: 0 azithromycin 250 mg Tablet 250 - 500 mg PO DAILY RF: 0 ascorbic acid (vitamin C) [Vitamin C] 500 mg Tablet 500 mg PO DAILY RF: 0 albuterol sulfate 90 mcg/actuation HFA aerosol inhaler 90 mcg INHALATION UD PRN (Reason: Shortness Of Breath) RF: 0 Culturelle 10 billion cell Capsule 1 cap PO DAILY RF: 0 sodium chloride 0.9 % solution for nebulization 3 ml INHALATION BID RF: 0 docusate sodium 100 mg Tablet 100 mg PO BID RF: 0 Referrals Referrals: Raz Hayes MD [Primary Care Provider] -
[2021-10-08 21:22] LABS: Hematocrit (blood only) 20.8 % (37-47); Hemoglobin 6.7 g/dL (12.0-16.0); Mean Corpuscular Hgb Conc 32.2 g/dL (32-36); Mean Corpuscular Volume 93.3 fL (80-100); Mean Platelet Volume 9.3 fL (7.4-10.4); Nucleated RBC # (auto) 0.07 K/uL (0-0); Nucleated RBC % (auto) 0.4 %; Platelet Count 300 K/uL (130-400); RDW Coefficient of Variation 16.2 % (11.5-14.5); RDW Standard Deviation 53.4 fL (36.4-46.3); Red Blood Count 2.23 M/uL (4.2-5.4); White Blood Count 17.87 K/uL (4.8-10.8)
[2021-10-08] MEDS ORDERED: SODIUM CHLORIDE 0.9% 250 ML IV PRN (21:25)
[2021-10-08 21:26] LABS: INR 1.9 (0.9-1.1); Partial Thromboplastin Time 27.4 Seconds (21.0-31.0); Prothrombin Time 18.2 Seconds (9.0-12.0)
[2021-10-08 21:37] LABS: Alanine Aminotransferase 437 U/L (12-78); Albumin Level 2.6 gm/dl (3.4-5.0); Aspartate Aminotransferase 645 U/L (15-37); BUN Creatinine Ratio 34.3 (10-20); Blood Urea Nitrogen 49 mg/dl (7-18); Calcium 8.1 mg/dl (8.5-10.1); Carbon Dioxide 20 mmol/L (21-32); Chloride 96 mmol/L (98-107); Est GFR (African American) 39.4 ml/min; Glucose 95 mg/dl (70-99); Potassium 4.9 mmol/L (3.5-5.1); Sodium 129 mmol/L (136-145)
[2021-10-08 21:40] LABS: Albumin Globulin Ratio 0.7 (0.9-2); Alkaline Phosphatase 197 U/L (45-117); Bilirubin,Total 1.1 mg/dl (0.2-1); Globulin 3.9 gm/dl (2.5-4.0); Total Protein 6.5 gm/dl (6.4-8.2)
[2021-10-08] MEDS ORDERED: SODIUM CHLORIDE 0.9% 1000ML 500 ML IV ONE (21:53)
[2021-10-08] MEDS ORDERED: PIPERACILL/TAZOBAC CONSULT ACTIVE PRN (21:54)
[2021-10-08] MEDS ORDERED: PIPERACILLIN/TAZOBACTAM 4.5 GM/120 ML BAG IV ONE (21:54)
[2021-10-08] MEDS ORDERED: PHYTONADIONE 10 MG in SODIUM CHLORIDE 0.9% 50 ML IV ONE (23:49)
--- NOTE | 2021-10-09 00:15 | Surgery Consultation ---
Date of Consultation October 09, 2021 Assessment & Plan (1) Spleen hematoma: Patient will be admitted on the hospitalist service. We recommend proceeding as follows: Close monitoring of the patient in the ICU Follow serial hemoglobin and hematocrits at least every 6 hours I discussed with the treating emergency room physician and there plans to correct the patient's coagulopathy and anemia. He is ordering vitamin K, fresh frozen plasma, and Amicar. Transfusion of packed red blood cells will also be implemented. At the present time patient is stable. I do suspect that her splenic hematoma may have resulted from one of her previous falls. We will continue to monitor the patient closely and hopefully be able to care for her without emergent operation. I discussed with the patient and her daughter who was present at bedside. The patient's daughter did note that in the event of cardiopulmonary arrest she does not wish CPR or other heroic measures to be implemented. I recommend using SCDs only for DVT prevention. No chemical means due to her underlying splenic laceration/hematoma. Supervising Physician Co-Signing Physician Notes Dr. Cameron-patient is in her ER bed awake and alert with her daughter to bedside- patient is breathing comfortably and in no distress Apparently she likely traumatized her spleen 4 to 5 days prior to this and became gradually weaker and has evidence of a perisplenic hematoma And also hematoma in the pelvis-at the present time her vital signs are stable her initial blood pressure was in the 80s however she did respond well to some fluid-she is being typed and crossed present time I do not think she requires an urgent or emergent operation and can be observed with bedrest and transfusion as needed with gradual increase in activity likely within the next 24 to 48 hours Obviously we will monitor her H&H History of Present Illness Reason for Consultation: Splenic laceration History of Present Illness This is an 81-year-old female who presented to the emergency department at the recommendation of her outpatient physician. It should be noted that the patient has a history of underlying dementia and therefore could not provide much in the way of meaningful history. History is obtained from review of records as well as discussion with her daughter who was present at bedside. The patient has a history of frequent falls dating back to July. Patient's daughter notes that her mother was hospitalized and suffered several falls while in the hospital. Review of patient's imaging revealed she did suffer some fractures of her pubic rami. Patient's daughter noted that her mother was eventually transferred to rehab where she eventually reached the point where she was stable enough to return home. Patient's daughter noted that her mother began to exhibit periods of weakness and fatigue which was unlike herself. She would also seem to clutch her abdomen and had intermittent periods of nausea without vomiting but did not complain of abdominal pain. Because of the symptoms visiting nurses was contacted and patient had blood work checked today where patient was noted to be markedly anemic. These results were called the patient's family physician who recommended evaluation in the emergency department. At the time of my interview the patient did not complain of any abdominal pain. She denied any nausea or vomiting. She denies any fevers, shakes, chills. Review of records also indicate the patient was previously seen in the hospital for a bout of hematuria which has not been problematic since return home. Patient's daughter does note that her mother takes a baby aspirin but does not take any other anticoagulants. It is also no over the mention that the patient's daughter notes that despite her frequent falls her last known fall was approximately 1 week ago. Today in the emergency department the patient had labs and imaging which I independently reviewed. Patient underwent a CT scan of the abdomen and pelvis that showed a 10.9 x 8.7 x 11.2 cm hemorrhage within the spleen. There are also subacute appearing fractures of the right superior and inferior pubic rami. A small right hemothorax was noted. Labs included a CBC her white blood cell count was 17.8. Hemoglobin and hematocrit were 6.7 and 20.8. Platelet count was noted to be normal at 300,000. Patient's INR is elevated at 1.9. A chemistry profile showed sodium was 129 with a normal potassium. BUN and creatinine were elevated at 49 and 1.4. A Covid test was performed and was noted to be negative. A chest x-ray did not show any evidence of pneumonia. It is noteworthy mention the patient's past records were reviewed and patient did have CT scans of her abdomen and pelvis in July and August of this year and neither of these studies demonstrated any evidence of splenic laceration. At the time of my interview the patient was resting comfortably in bed. She was in no distress. She was not complaining of any pain. Allergies Allergy/AdvReac Type Severity Reaction Status Date / Time No Known Allergies Allergy Verified 10/08/21 23:38 Home Medications Medication Instructions Recorded Confirmed Type pravastatin 40 mg tablet 40 mg PO HS 09/21/19 10/08/21 History sertraline 100 mg tablet 100 mg PO QPM 09/21/19 10/08/21 History sertraline 50 mg tablet 50 mg PO QPM 09/21/19 10/08/21 History cholecalciferol (vitamin D3) 50 50 mcg PO QAM 02/14/21 10/08/21 History mcg (2,000 unit) capsule (Vitamin D3) diclofenac sodium 1 % topical gel 1 ea TOPICAL QID PRN 02/14/21 10/08/21 History guaifenesin 600 mg tablet, 1,200 mg PO BID 02/14/21 10/08/21 History extended release 12 hr (Mucinex) furosemide 20 mg tablet 20 mg PO DAILY PRN 08/14/21 10/08/21 History umeclidinium 62.5 mcg-vilanterol 1 ea INHALATION DAILY #14 ea 08/17/21 10/08/21 Rx 25 mcg/actuation powdr for inhalation (Anoro Ellipta) acetylcysteine 200 mg/mL (20 %) 2.5 ml INHALATION Q12H 08/29/21 10/08/21 History solution aspirin 81 mg tablet,delayed 81 mg PO DAILY 08/29/21 10/08/21 History release Lactobacillus rhamnosus GG 10 1 cap PO DAILY 10/08/21 10/08/21 History billion cell capsule (Culturelle) albuterol sulfate 2.5 mg INHALATION QID PRN 10/08/21 10/08/21 History albuterol sulfate 90 mcg/actuation 90 mcg INHALATION UD PRN 10/08/21 10/08/21 History aerosol inhaler ascorbic acid (vitamin C) 500 mg 500 mg PO DAILY 10/08/21 10/08/21 History tablet (Vitamin C) azithromycin 250 mg tablet 250 - 500 mg PO DAILY 10/08/21 10/08/21 History docusate sodium 100 mg tablet 100 mg PO BID 10/08/21 10/08/21 History multivitamin 1 tab PO DAILY 10/08/21 10/08/21 History polyethylene glycol 3350 17 gram 17 g PO DAILY 10/08/21 10/08/21 History oral powder packet (Miralax) sodium chloride 0.9 % for 3 ml INHALATION BID 10/08/21 10/08/21 History nebulization Patient History Medical History AAA (abdominal aortic aneurysm) "s/p repair of ruptured AAA in 2010" Bronchiectasis CKD (chronic kidney disease), stage III COPD (chronic obstructive pulmonary disease) Dementia Depression Female stress incontinence H/O: CVA (cerebrovascular accident) Hip fracture History of COVID-19 History of pulmonary embolism HTN (hypertension) Hyperlipidemia Palliative care encounter Palliative care encounter Peripheral vascular disease Pulmonary nodule Recurrent pneumonia SARS-CoV-2 positive Tobacco use disorder Weakness Surgical History S/P AAA repair "s/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 Desir with bifurcated graft, left femoral thromboendarterectomy with patch angioplasty, right femoral thromboendarterectomy, and right iliofemoral bypass" S/P laparotomy "10/16/11- abdominal exploration, wound vac placement; 10/18/11- abdominal washout and closure. " S/P ORIF (open reduction internal fixation) fracture "left hip" Family History Other Diabetes Heart disease Social History Smoking Status: Never smoker Tobacco Type: Cigarettes Hx Alcohol Use: No (Unknown) Preferred Language: Vietnamese Communication Ability: Impaired Mail Processor Required: No Beliefs That Will Affect Care: None marital status: 2 daughters marital status details: of COVID in Nov 2020 Current Living Situation: Family Current Living Situation Comment: Lives w/ daughter Feels Safe at Home: Yes Assistive Devices: Denture - Upper, Glasses and Walker Review of Systems Constitutional: + fatigue and + weakness; no fever and no chills Eyes: no diplopia Ear, Nose, Mouth, Throat: no ear pain and no sore throat Respiratory: no cough and no dyspnea Cardiovascular: no chest pain Gastrointestinal: + nausea; no abdominal pain and no vomiting Genitourinary: no dysuria Musculoskeletal: no back pain Integumentary: no rash Neurologic: + unsteadiness, + falls and + generalized weakness; no localized weakness Physical Exam Constitutional: well developed and well nourished; no acute distress Eyes: no conjunctival abnormality ENMT: Ears: no hearing impairment Mouth: no oropharynx abnormality Neck: trachea midline Respiratory: normal respiratory effort; no respiratory distress and no labored breathing Breath sounds with slight decreased at bases noted Cardiovascular: Rate/Rhythm: regular rate and regular rhythm Gastrointestinal (Abdomen): Abdomen is soft and nondistended. Bowel sounds are present. There is no pain with palpation. There is no rebound tenderness or guarding. There are no areas of ecchymosis on her abdominal wall. Musculoskeletal: No gross orthopedic abnormalities. No calf tenderness Skin: no rashes Neurologic: moves all extremities Psychiatric: Patient is alert to person. She is confused to time and place Results & Data ([facility]) Vital Signs (Past 12 Hours) Vital Signs Temp Pulse Resp BP Pulse Ox 10/08/21 20:47 36.2 C L 73 19 91/48 L 93 PG Care Time/CCT Total # of Minutes Spent Total Time Spent with Patient: Total time spent is greater than 50% in coordination of care (as documented) at patient's floor/unit and/or counseling patient: Coding Level of Care Code 24849 Inpt Consult Level 5 Diagnoses Spleen hematoma S36.029A
[2021-10-09] MEDS ORDERED: TRANEXAMIC ACID / 0.7% NACL 1,000 MG/100 ML BAG IV STA (00:27)
[2021-10-09] MEDS ORDERED: SODIUM CHLORIDE 0.9% 250 ML IV PRN ×2 (00:27→19:24)
[2021-10-09 00:37] LABS: Magnesium 2.7 mg/dl (1.8-2.4)
--- NOTE | 2021-10-09 00:50 | History & Physical Report ---
Date of Service October 09, 2021 Assessment & Plan (1) Hypotension: Plan: Multifactorial : Subacute blood loss secondary to traumatic splenic hemorrhage/hematoma (likely from recurrent falls during recent rehab facility stay) Hyponatremia, ARF secondary to poor p.o. intake Acute on chronic anemia, hemoglobin drop from baseline secondary to intra- abdominal bleed Abnormal LFTs possibly from hypotension, possible shock liver Chronic respiratory failure secondary to COPD/bronchiectasis on home O2, pulmonary status at baseline pulmonary nodules (possible malignancy as per records), patient family not interested in aggressive work-up as per prior documentation hx PVD sp surgery/CVA as per records Past tobacco abuse dementia PCU Transfuse PRBC to maintain hemoglobin above 8, history CVA/PVD Appropriate to hold home aspirin for now until hemoglobin stable General Surgery consultation Re: Splenic hematoma (Patient already seen by provider personal development coach at the ER. N.p.o. status, Zosyn recommended for now.) Baseline UA, monitor creatinine response to IVF Appropriate to hold home DEE DEE inhibitor for now until creatinine back to baseline DVT prophylaxis. SCDs Re: Intra-abdominal bleed DNR as per patient's prior directives as per family. Patient daughter requesting updates from providers. Laura Marley, contact #[phone]. Text document was generated using [employer] voice recognition software. It may contain grammatical or spelling errors. Kindly contact undersigned for clarification of any documentation item in question. History of Present Illness Chief Complaint: Anemia Primary Care Provider: Raz Hayes MD History obtained from patient, family, and records. Limited history from patient secondary to dementia/impairment Medical history significant for COPD/bronchiectasis, pulmonary nodules (possible malignancy as per records), hypertension, PVD sp surgery, CVA as per records, chronic anemia (baseline hemoglobin 9-10 ), tobacco abuse, dementia, recurrent falls. Last confinement September 20-2020 for hematuria, asymptomatic COVID-19 infection. Patient discharged to [facility]. Patient had to mechanical falls at [facility] during her weeklong stay as per daughter. Patient discharged home last week. Generalized weakness at home the last few days with patient nauseous, having difficulty standing with emesis. Poor fluid intake as per family. Some abdominal soreness noted by the family. Patient noted to have rhonchi on exam, delayed swallowing, suspected aspiration as per home nursing note yesterday. PCP ordered azithromycin and outpatient blood work. Abnormal labs noted with outpatient blood work yesterday. Hemoglobin 6.4, sodium 125, potassium 6.4, creatinine 1.5. Patient sent to the ER for evaluation. SBP 90s at 1 point during ER stay. Vitamin K, tranexamic acid, FFP, 1 unit packed RBC administered at the ER for splenic hematoma following ER provider discussion with [facility] transfusion specialist. 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 Allergies Allergy/AdvReac Type Severity Reaction Status Date / Time No Known Allergies Allergy Verified 10/08/21 23:38 Home Medications Medication Instructions Recorded Confirmed Type pravastatin 40 mg tablet 40 mg PO HS 09/21/19 10/08/21 History sertraline 100 mg tablet 100 mg PO QPM 09/21/19 10/08/21 History sertraline 50 mg tablet 50 mg PO QPM 09/21/19 10/08/21 History cholecalciferol (vitamin D3) 50 50 mcg PO QAM 02/14/21 10/08/21 History mcg (2,000 unit) capsule (Vitamin D3) diclofenac sodium 1 % topical gel 1 ea TOPICAL QID PRN 02/14/21 10/08/21 History guaifenesin 600 mg tablet, 1,200 mg PO BID 02/14/21 10/08/21 History extended release 12 hr (Mucinex) furosemide 20 mg tablet 20 mg PO DAILY PRN 08/14/21 10/08/21 History umeclidinium 62.5 mcg-vilanterol 1 ea INHALATION DAILY #14 ea 08/17/21 10/08/21 Rx 25 mcg/actuation powdr for inhalation (Anoro Ellipta) acetylcysteine 200 mg/mL (20 %) 2.5 ml INHALATION Q12H 08/29/21 10/08/21 History solution aspirin 81 mg tablet,delayed 81 mg PO DAILY 08/29/21 10/08/21 History release Lactobacillus rhamnosus GG 10 1 cap PO DAILY 10/08/21 10/08/21 History billion cell capsule (Culturelle) albuterol sulfate 2.5 mg INHALATION QID PRN 10/08/21 10/08/21 History albuterol sulfate 90 mcg/actuation 90 mcg INHALATION UD PRN 10/08/21 10/08/21 History aerosol inhaler ascorbic acid (vitamin C) 500 mg 500 mg PO DAILY 10/08/21 10/08/21 History tablet (Vitamin C) azithromycin 250 mg tablet 250 - 500 mg PO DAILY 10/08/21 10/08/21 History docusate sodium 100 mg tablet 100 mg PO BID 10/08/21 10/08/21 History multivitamin 1 tab PO DAILY 10/08/21 10/08/21 History polyethylene glycol 3350 17 gram 17 g PO DAILY 10/08/21 10/08/21 History oral powder packet (Miralax) sodium chloride 0.9 % for 3 ml INHALATION BID 10/08/21 10/08/21 History nebulization Past Med/Surg History Medical History AAA (abdominal aortic aneurysm) "s/p repair of ruptured AAA in 2010" Bronchiectasis CKD (chronic kidney disease), stage III COPD (chronic obstructive pulmonary disease) Dementia Depression Female stress incontinence H/O: CVA (cerebrovascular accident) Hip fracture History of COVID-19 History of pulmonary embolism HTN (hypertension) Hyperlipidemia Palliative care encounter Palliative care encounter Peripheral vascular disease Pulmonary nodule Recurrent pneumonia SARS-CoV-2 positive Tobacco use disorder Weakness Surgical History S/P AAA repair "s/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 Desir with bifurcated graft, left femoral thromboendarterectomy with patch angioplasty, right femoral thromboendarterectomy, and right iliofemoral bypass" S/P laparotomy "10/16/11- abdominal exploration, wound vac placement; 10/18/11- abdominal washout and closure. " S/P ORIF (open reduction internal fixation) fracture "left hip" Family History Other Diabetes Heart disease Social History Smoking Status: Former smoker Tobacco Type: Cigarettes Second Hand Exposure: No; Do You Dip or Chew Tobacco: No; Tobacco Cessation Education Requested by Patient: No Hx Alcohol Use: No Hx Substance Use: No Preferred Language: Tristanian Communication Ability: Mentation Head Piece Assembler Required: No Beliefs That Will Affect Care: None and Bahai Bahai Beliefs: Confucianism marital status: 2 daughters marital status details: of COVID in Nov 2020 Current Living Situation: Family Current Living Situation Comment: Lives w/ daughter Other Information That Helps Us Care for You: No Feels Safe at Home: Yes Safety Concerns: Feels Safe At This Time Assistive Devices: Cane, Glasses, Walker and Wheelchair Review of Systems Review of Systems: Could not be reliably obtained Physical Exam Physical Exam: GENERAL: comfortable, demented, hard of hearing, no respiratory distress SKIN: Pallor,, warm HEENT: Pale palpebral conjunctivae, no ptosis, dry buccal mucosa NECK : Supple, no tenderness CHEST : Decreased breath sounds, no tenderness HEART : RRR, no obvious murmurs ABDOMEN: Some distention, left-sided tenderness EXTREMITIES : No LE swelling/tenderness, no other conspicuous deformities noted NEUROLOGIC : Demented, no facial asymmetry, hard of hearing, gait and stance not assessed Results & Data Results & Data ([facility]) Vital Signs (Past 12 Hours) Vital Signs Temp Pulse Resp BP Pulse Ox 10/09/21 00:32 37.0 C 74 18 113/69 94 10/09/21 00:17 37.2 C 78 16 110/67 99 10/08/21 20:47 36.2 C L 73 19 91/48 L 93 Laboratory Results Laboratory Results WBC 17.87 K/uL (4.8-10.8) H 10/08/21 20:56 RBC 2.23 M/uL (4.2-5.4) L 10/08/21 20:56 Hgb 6.7 g/dL (12.0-16.0) L* 10/08/21 20:56 Hct 20.8 % (37-47) L* 10/08/21 20:56 MCV 93.3 fL (80-100) 10/08/21 20:56 MCH 30.0 pg (25-34) 10/08/21 20:56 MCHC 32.2 g/dL (32-36) 10/08/21 20:56 RDW Std Deviation 53.4 fL (36.4-46.3) H 10/08/21 20:56 RDW Coeff of [place] 16.2 % (11.5-14.5) H 10/08/21 20:56 Plt Count 300 K/uL (130-400) 10/08/21 20:56 MPV 9.3 fL (7.4-10.4) 10/08/21 20:56 Absolute Nucleated RBC 0.07 K/uL (0-0) H 10/08/21 20:56 Nucleated RBC % (auto) 0.4 % 10/08/21 20:56 PT 18.2 Seconds (9.0-12.0) H 10/08/21 20:56 INR 1.9 (0.9-1.1) H 10/08/21 20:56 APTT 27.4 Seconds (21.0-31.0) 10/08/21 20:56 PTT Ratio 1.0 10/08/21 20:56 Sodium 129 mmol/L (136-145) L 10/08/21 20:56 Potassium 4.9 mmol/L (3.5-5.1) 10/08/21 20:56 Chloride 96 mmol/L (98-107) L 10/08/21 20:56 Carbon Dioxide 20 mmol/L (21-32) L 10/08/21 20:56 Anion Gap 13.0 (3-11) H 10/08/21 20:56 BUN 49 mg/dl (7-18) H 10/08/21 20:56 Creatinine 1.43 mg/dl (0.6-1.2) H 10/08/21 20:56 Est Cr Clr Drug Dosing Not Reportable 10/08/21 20:56 Est GFR ( Amer) 39.4 ml/min 10/08/21 20:56 Est GFR (Non-Af Amer) 34.0 ml/min 10/08/21 20:56 BUN/Creatinine Ratio 34.3 (10-20) H 10/08/21 20:56 Glucose 95 mg/dl (70-99) 10/08/21 20:56 Osmolality 291 mOsm/kg (280-300) 10/08/21 22:48 Calcium 8.1 mg/dl (8.5-10.1) L 10/08/21 20:56 Magnesium 2.7 mg/dl (1.8-2.4) H 10/08/21 20:56 Total Bilirubin 1.1 mg/dl (0.2-1) H 10/08/21 20:56 AST 645 U/L (15-37) H 10/08/21 20:56 ALT 437 U/L (12-78) H 10/08/21 20:56 Alkaline Phosphatase 197 U/L (45-117) H 10/08/21 20:56 Total Protein 6.5 gm/dl (6.4-8.2) 10/08/21 20:56 Albumin 2.6 gm/dl (3.4-5.0) L 10/08/21 20:56 Globulin 3.9 gm/dl (2.5-4.0) 10/08/21 20:56 Albumin/Globulin Ratio 0.7 (0.9-2) L 10/08/21 20:56 Procalcitonin 0.45 ng/ml (0-0.5) 10/08/21 22:48 TSH 2.750 uIu/ml (0.300-4.500) 10/08/21 20:56 Nasal Screen MRSA (PCR) Negative (Negative) 10/08/21 22:13 SARS-CoV-2, RNA, NAAT NEGATIVE (NEGATIVE) 10/08/21 22:13 Blood Type O Positive 10/08/21 20:56 Antibody Screen NEGATIVE 10/08/21 20:56 Crossmatch See Detail 10/08/21 20:[address] abdomen pelvis initial read: A10.9 x 8.7 x 11.12 cmhemorrhage is present within the spleen. Question mild right hydronephrosis. Abnormal contour of the left lobe of the liver concerning for cirrhosiswith underlying lesion. Clinical correlation is recommended, consider further evaluation with dedicated hepatic MR. The remaining solid organs are within normal limits. No obstruction. Stable aortic vascular stents and right iliac graft. No acute fracture. Subacute appearing right superior and inferior rami fractures. There is a small right hemothorax. Chest x-ray as per read atelectasis, RUL nodule EKG as per my interpretation : Rate 80, NSR, LAD, LAFB, T wave abnormalities inferior and anteroseptal leads, low voltage
[2021-10-09 01:41] LABS: Creatine Kinase 42 U/L (26-192)
[2021-10-09] MEDS ORDERED: ACETAMINOPHEN 325 MG TAB PO PRN (03:28)
[2021-10-09] MEDS ORDERED: traMADol HCL 50 MG TABLET PO PRN (03:28)
[2021-10-09] MEDS ORDERED: IPRATROPIUM BROMIDE NEB SOLN 0.02% 2.5 ML VIAL INH PRN (03:28)
[2021-10-09] MEDS ORDERED: PROMETHAZINE HCL 6.25 MG in SODIUM CHLORIDE 0.9% 50 ML IV PRN (03:28)
[2021-10-09] MEDS ORDERED: XOPENEX/ATROVENT 1.25mg/0.5MG NEB COMBO NEB PRN (03:28)
[2021-10-09] MEDS ORDERED: HYDROmorphone INJ 0.5 MG/0.5 ML SYR IV PRN (03:28)
[2021-10-09] MEDS: SODIUM CHLORIDE 0.9% 1000ML 1,000 ML IV SCH ×2 (03:30→16:54)
[2021-10-09] MEDS: PIPERACILLIN/TAZOBACTAM 3.375 GM in DEXTROSE 5% 100 ML IV SCH ×3 (06:39→22:25)
--- NOTE | 2021-10-09 06:52 | Surgery Progress Note ---
Date of Service October 09, 2021 Assessment & Plan (1) Splenic rupture: Plan: Patient likely ruptured 5 to 7 days ago with evidence of perisplenic hematoma And hematoma in the pelvis She was very anemic however she was well compensated and her extremities were warm and dry And her vital signs were stable She did receive 2 units of blood Her a.m. labs are pending Continue limited activity today-May begin diet after her labs are checked Admission and Anticipated Discharge Date Admission Date: October 09, 2021 Subjective Patient's vital signs are stable Extremities are warm and dry She is confused and combative at times Review of Systems Review of Systems: All systems reviewed & are unremarkable except as noted in HPI & below Physical Exam Physical Exam: Patient response to stimuli Hemodynamically stable Constitutional: no acute distress Eyes: + anicteric sclerae Respiratory: no respiratory distress Cardiovascular: Rate/Rhythm: regular rate Gastrointestinal (Abdomen): Inspection/Auscultation: abdomen not distended Musculoskeletal: Head/Neck/Chest: head atraumatic Skin: no rashes, warm and dry Neurologic: + confused Psychiatric: Orientation: alert Results & [facility] ([facility]) Vital Signs (Past 12 Hours) Vital Signs Temp Pulse Pulse Resp BP BP Pulse Ox 10/09/21 06:15 36.6 C 88 20 105/55 L 95 10/09/21 05:40 36.3 C L 75 16 109/52 L 10/09/21 04:40 36.7 C 72 16 106/55 L 96 10/09/21 04:10 36.7 C 74 16 95/54 L 98 10/09/21 03:55 36.7 C 75 18 100/56 L 97 10/09/21 03:49 36.7 C 73 18 95/54 L 98 10/09/21 02:25 77 18 107/59 L 95 10/09/21 01:30 72 18 94/49 L 97 10/09/21 01:02 37 C 75 18 102/58 L 99 10/09/21 00:47 77 18 113/53 L 99 10/09/21 00:32 37.0 C 74 18 113/69 94 10/09/21 00:17 37.2 C 78 16 110/67 99 10/08/21 20:47 36.2 C L 73 19 91/48 L 93 PG Care Time/CCT Total # of Minutes Spent Total Time Spent with Patient: Total time spent is greater than 50% in coordination of care (as documented) at patient's floor/unit and/or counseling patient: Coding Level of Care Code 35647 Inpt Consult Level 3 Diagnoses Splenic rupture S36.09XA
[2021-10-09] MEDS ORDERED: ACETYLCYSTEINE 20% INHAL SOLN 30ML INH SCH (07:00)
[2021-10-09] MEDS: LEVALBUTEROL 1.25MG/0.5ML NEB INH PRN ×2 (07:13→20:40)
[2021-10-09 07:32] LABS: Eosinophils # (auto) 0.01 K/uL (0-0.5); Eosinophils % (auto) 0.1 %; Hematocrit (blood only) 23.8 % (37-47); Hemoglobin 7.6 g/dL (12.0-16.0); Immature Granulocytes # (auto) 0.09 K/uL (0.00-0.02); Immature Granulocytes % (auto) 0.7 %; Lymphocytes # (auto) 0.54 K/uL (1.2-3.4); Lymphocytes % (auto) 4.4 %; Mean Corpuscular Hemoglobin 29.1 pg (25-34); Mean Corpuscular Hgb Conc 31.9 g/dL (32-36); Mean Corpuscular Volume 91.2 fL (80-100); Mean Platelet Volume 9.1 fL (7.4-10.4); Monocytes # (auto) 0.82 K/uL (0.11-0.59); Monocytes % (auto) 6.7 %; Neutrophils # (auto) 10.77 K/uL (1.4-6.5); Neutrophils % (auto) 88.1 %; Nucleated RBC % (auto) 0.8 %; Platelet Count 231 K/uL (130-400); RDW Coefficient of Variation 16.7 % (11.5-14.5); Red Blood Count 2.61 M/uL (4.2-5.4); White Blood Count 12.23 K/uL (4.8-10.8)
[2021-10-09 07:40] LABS: INR 1.5 (0.9-1.1); Prothrombin Time 14.6 Seconds (9.0-12.0)
[2021-10-09 07:53] LABS: Anisocytosis Present; Polychromasia 1+
--- NOTE | 2021-10-09 07:56 | XRay Report ---
XR chest 1V portable CLINICAL HISTORY: coarse sounds, h/o bronchiectasis/COPD COMPARISON STUDY: Chest CT August 15, 2021. Chest radiograph August 29, 2021 FINDINGS: Electronic device projects over the left chest. Cardiomediastinal silhouette is stable. The re is no pneumothorax or pleural effusion. Interstitial thickening is similar to prior exam. Right up per lobe paramediastinal nodule is noted. This is better depicted on prior chest CT. There are old ri ght rib fractures. No consolidation is identified to suggest pneumonia. IMPRESSION: 1. No significant change in appearance of the chest. 2. Redemonstration of an indeterminate right upper lobe nodule. Malignancy cannot be excluded. Follow -up chest CT is recommended. ACT 112: Positive. There are findings on this exam that require communication between the performing entity and the patient following Patient Test Result Information Act ([place] Act 112) guidelines. Electronically signed by: Booker Hamm M.D. 10/09/2021 7:54 AM
[2021-10-09 08:02] LABS: Albumin Globulin Ratio 0.7 (0.9-2); Albumin Level 2.6 gm/dl (3.4-5.0); BUN Creatinine Ratio 37.7 (10-20); Bilirubin,Total 1.4 mg/dl (0.2-1); Calcium 8.3 mg/dl (8.5-10.1); Creatinine Clr Calc Pharmacy 30.6 ml/min; Est GFR (Non-African American) 45.7 ml/min; Globulin 3.6 gm/dl (2.5-4.0); Potassium 4.2 mmol/L (3.5-5.1); Total Protein 6.2 gm/dl (6.4-8.2)
[2021-10-09] MEDS: DOCUSATE SODIUM 100 MG CAP PO SCH ×2 (08:12→20:31)
[2021-10-09] MEDS: ADVANCED PROBIOTIC 1250 MG CAPSULE PO SCH (08:12)
[2021-10-09] MEDS: MULTIVITAMIN TAB PO SCH (08:12)
[2021-10-09] MEDS: SODIUM CHLORIDE 0.9% NEBU SOLN 3 ML NEB SCH ×2 (08:47→20:30)
--- NOTE | 2021-10-09 09:39 | CT Scan Report ---
CT OF THE ABDOMEN AND PELVIS WITHOUT CONTRAST CLINICAL HISTORY: elevated LFTs COMPARISON STUDY: CT of the abdomen and pelvis September 04, 2021. TECHNIQUE: Axial images of the abdomen and pelvis were obtained without IV contrast. Images were revi ewed in the axial, sagittal, and coronal planes. Automated exposure control was utilized for the joo dy. A dose lowering technique was utilized adhering to the principles of ALARA. FINDINGS: Note is made of multiple groundglass opacities and tree-in-bud nodules within the lower jaleel gs. These include a 1.3 cm subpleural irregular left lower lobe nodular opacity on image 41 of 416 an d a 1.5 cm groundglass opacity within the right lower lobe. Overall, the findings have mildly improve d since prior CT of September 04, 2021. A small right pleural effusion is noted. No pneumatosis, free a ir or portal venous gas is present. Evaluation of the abdomen and pelvis is suboptimal on this unenha nced exam. A large mixed attenuation splenic hematoma has developed since CT of September 04, 2021. Thi s measures approximately 12 x 12 x 9.3 cm. There is adjacent hemorrhage. Hemoperitoneum is noted with in the paracolic gutters as well as the pelvis. Bifurcated aortoiliac stent graft is suboptimally ass essed on this exam but is unchanged. Since prior CT. Unenhanced images of the liver, kidneys and panc reas are unremarkable. Bilateral adrenal nodules are unchanged. These are likely benign. There is no evidence for a bowel obstruction. Bladder is mildly distended. Left femoral internal fixation is note d. Healing fractures of the right superior and inferior pubic rami are noted. IMPRESSION: 1. Interval development of a large splenic hematoma, measuring 12 x 12 x 9.3 cm. Adjacent perisplenic hemorrhage. Small to moderate hemoperitoneum. The findings represent splenic rupture. Surgical consu ltation is recommended. 2. Small right pleural effusion. 3. Bilateral lower lung airspace opacities which have slightly improved since prior CT. ACT 112: Negative or not required by law. Electronically signed by: Booker Hamm M.D. 10/09/2021 9:38 AM
[2021-10-09] MEDS: UMECLIDINIUM/VILANTEROL 62.5/25MCG 7 PUFFS/INHALER INH SCH (10:49)
[2021-10-09 12:21] LABS: Hematocrit (blood only) 23.3 % (37-47); Hemoglobin 7.4 g/dL (12.0-16.0)
--- NOTE | 2021-10-09 14:45 | Hospitalist Progress Note ---
Date of Service October 09, 2021 Assessment & Plan (1) Hypotension: Plan: Multifactorial : Subacute blood loss secondary to traumatic splenic hemorrhage/hematoma (likely from recurrent falls during recent rehab facility stay) Hyponatremia, ARF secondary to poor p.o. intake Blood pressure remains reasonably stable on the lower side Increasing LFTs Likely has shock liver from hypotension With increasing INR to 1.9 She received 10 mg of vitamin K and 1 unit of FFP for acute bleeding LFTs are slightly better including INR (2) Spleen hematoma without rupture of capsule, without open wound into cavity: Plan: Secondary to fall Has 12 x 12 x 9.3 cm splenic hematoma, small to moderate hemoperitoneum, adjacent perisplenic hemorrhage Appreciate surgery input and recommendation No indication for surgery Has been on intravenous Zosyn Will observe (3) Symptomatic anemia: Plan: Acute on chronic anemia, hemoglobin drop from baseline secondary to intra- abdominal bleed Received 1 unit of PRBC Hemoglobin is maintained just above 7 We will monitor CBC and transfuse as needed (4) COPD (chronic obstructive pulmonary disease): Plan: Chronic respiratory failure secondary to COPD/bronchiectasis on home O2, pulmonary status at baseline pulmonary nodules (possible malignancy as per records), patient family not interested in aggressive work-up as per prior documentation (5) CKD (chronic kidney disease), stage III: (6) History of pulmonary embolism: Plan: hx PVD sp surgery/CVA as per records Past tobacco abuse dementia DVT prophylaxis. SCDs Re: Intra-abdominal blee DNR as per patient's prior directives as per family. Patient daughter requesting updates from providers. Ms. Laura Roach, contact #[phone]. Admission and Anticipated Discharge Date Admission Date: October 09, 2021 Subjective 10/09/2021 The patient was seen and examined in ICU She has been generally weak but denies any abdominal pain, nausea and or vomiting She has minimal cough without any phlegm Review of Systems Review of Systems: All systems reviewed and are unremarkable except as noted below Physical Exam Physical Exam: Lying in bed comfortably Constitutional: well developed, well nourished, + ill appearing and + obese Eyes: PERRL, conjunctivae normal, anicteric sclerae ENMT: external ear and nose normal, oropharynx normal Neck: trachea midline, no thyromegaly Respiratory: no respiratory distress and no cough Auscultation: + diminished lung sounds and + crackles (Minimal crackles at the bases) Cardiovascular: Rate/Rhythm: regular rate and regular rhythm; not tachycardic Heart Sounds: normal S1 and normal S2; no murmur Extremities: no edema Gastrointestinal (Abdomen): Inspection/Auscultation: normal bowel sounds; abdomen not distended Percussion/Palpation: abdomen soft; abdomen nontender Musculoskeletal: No acute arthritis in any joint Neurologic: Alert, awake and oriented x3, she is generally weak and lethargic. Moves all the limbs equally Psychiatric: A+Ox3, euthymic affect Lymphatic: no cervical or axillary lymphadenopathy Results & Data Results & Data ([facility]) Vital Signs (Past 12 Hours) Vital Signs Temp Pulse Pulse Resp BP BP Pulse Ox 10/09/21 11:50 36.8 C 76 14 119/61 97 10/09/21 08:00 36.7 C 75 76 16 117/52 L 95 10/09/21 07:17 77 16 97 10/09/21 06:15 36.6 C 88 20 105/55 L 95 10/09/21 05:40 36.3 C L 75 16 109/52 L 10/09/21 04:40 36.7 C 72 16 106/55 L 96 10/09/21 04:10 36.7 C 74 74 16 95/54 L 95/54 L 98 10/09/21 03:55 36.7 C 75 18 100/56 L 97 10/09/21 03:49 36.7 C 73 18 95/54 L 98 10/09/21 02:25 77 18 107/59 L 95 Laboratory Results Short CBC 10/08/21 10/09/21 10/09/21 Range/Units 20:56 07:16 12:03 WBC 17.87 H 12.23 H (4.8-10.8) K/uL Hgb 6.7 L* 7.6 L 7.4 L (12.0-16.0) g/dL Hct 20.8 L* 23.8 L 23.3 L (37-47) % Plt Count 300 231 (130-400) K/uL BMP 10/08/21 10/09/21 20:56 07:16 Sodium 129 L 135 L Potassium 4.9 4.2 Chloride 96 L 103 Carbon Dioxide 20 L 22 BUN 49 H 42 H Creatinine 1.43 H 1.12 D Glucose 95 80 Calcium 8.1 L 8.3 L Cardiac Enzymes 10/08/21 Range/Units 20:56 Total Creatine Kinase 42 (26-192) U/L Liver Function 10/08/21 10/09/21 Range/Units 20:56 07:16 Total Bilirubin 1.1 H 1.4 H (0.2-1) mg/dl AST 645 H 607 H (15-37) U/L ALT 437 H 471 H (12-78) U/L Alkaline Phosphatase 197 H 174 H (45-117) U/L Albumin 2.6 L 2.6 L (3.4-5.0) gm/dl Medications Administered Current Inpatient Medications Acetaminophen (Acetaminophen 325 Mg Tab) 325 mg PO Q6H PRN PRN Reason: Mild Pain Stop: 11/08/21 03:27 Acetylcysteine (Acetylcysteine 20% Inhal Soln 30ml) 2.5 ml INH BIDR [facility] Stop: 11/08/21 06:59 Last Admin: 10/09/21 08:47 Dose: 2.5 ml Documented by: Docusate Sodium (Docusate Sodium 100 Mg Cap) 100 mg PO BID [facility] Stop: 11/08/21 08:59 Last Admin: 10/09/21 08:12 Dose: Not Given Documented by: Hydromorphone HCl (Hydromorphone Inj 0.5 Mg/0.5 Ml Syr) 0.25 mg IV Q6H PRN PRN Reason: Pain Stop: 10/23/21 03:27 Sodium Chloride (Nss 1000ml) 1,000 mls @ 75 mls/hr IV .[id number] [facility] Stop: 11/08/21 01:29 Last Infusion: 10/09/21 08:11 Dose: 75 mls/hr Documented by: Promethazine HCl 6.25 mg/ (Sodium Chloride) 50.25 mls @ 201 mls/hr IV Q6H PRN PRN Reason: Nausea And Vomiting Stop: 11/08/21 03:27 Piperacillin Sod/Tazobactam (Sod 3.375 gm/ Dextrose) 115 mls @ 28.75 mls/hr IV Q8H [facility]; Protocol Stop: 10/19/21 05:59 Last Admin: 10/09/21 14:15 Dose: 28.8 mls/hr Documented by: Ipratropium [place] (Ipratropium [place] Neb Soln 0.02% 2.5 Ml Vial) 0.5 mg INH Q4H PRN PRN Reason: sob/wheezing Stop: 11/08/21 03:27 Lactobacillus Acidoph/Casei/Rhamnos (Advanced Probiotic 1250 Mg Capsule) 2 cap PO DAILY [facility] Stop: 11/08/21 08:59 Last Admin: 10/09/21 08:12 Dose: Not Given Documented by: Levalbuterol HCl (Levalbuterol 1.25mg/0.5ml Neb) 1.25 mg INH Q4H PRN PRN Reason: sob/wheezing Stop: 11/08/21 03:27 Last Admin: 10/09/21 07:13 Dose: 1.25 mg Documented by: Miscellaneous Information (Piperacill/Tazobac Consult Active) 1 ea N/A UD PRN PRN Reason: Consult Stop: 11/07/21 21:53 Multivitamins (Multivitamin Tab) 1 tab PO DAILY [facility] Stop: 11/08/21 08:59 Last Admin: 10/09/21 08:12 Dose: Not Given Documented by: Sertraline HCl (Sertraline Hcl 100 Mg Tablet) 100 mg PO QPM [facility] Stop: 11/08/21 20:59 Sertraline HCl (Sertraline Hcl 50 Mg Tablet) 50 mg PO QPM [facility] Stop: 11/08/21 20:59 Sodium Chloride (Sodium Chloride 0.9% Nebu Soln 3 Ml) 3 ml NEB BIDR [facility] Stop: 11/08/21 06:59 Last Admin: 10/09/21 08:47 Dose: 3 ml Documented by: Tramadol HCl (Tramadol Hcl 50 Mg Tablet) 25 mg PO Q4H PRN PRN Reason: Pain Stop: 11/08/21 03:27 Umeclidinium/Vilanterol (Umeclidinium/Vilanterol 62.5/25mcg 7 Puffs/Inhaler) 1 puffs INH DAILY [facility] Stop: 11/08/21 08:59 Last Admin: 10/09/21 10:49 Dose: Not Given Documented by: (1) Spleen hematoma without rupture of capsule, without open wound into cavity Encounter type: initial encounter Qualified Code(s): S36.029A - Unspecified contusion of spleen, initial encounter (2) COPD (chronic obstructive pulmonary disease) COPD type: unspecified COPD Qualified Code(s): J44.9 - Chronic obstructive pulmonary disease, unspecified
[2021-10-09 18:03] LABS: Hematocrit (blood only) 24.1 % (37-47); Hemoglobin 7.6 g/dL (12.0-16.0)
[2021-10-09] MEDS: ACETYLCYSTEINE 20% INHAL SOLN 4ML ***DISPENSED BY RESP. INH SCH (20:39)
[2021-10-09] MEDS ORDERED: SERTRALINE HCL 50 MG TABLET PO SCH (21:00)
[2021-10-09] MEDS ORDERED: SERTRALINE HCL 100 MG TABLET PO SCH (21:00)
[2021-10-10] MEDS: PIPERACILLIN/TAZOBACTAM 3.375 GM in DEXTROSE 5% 100 ML IV SCH ×2 (05:59→14:26)
[2021-10-10 06:04] LABS: INR 1.4 (0.9-1.1); Prothrombin Time 13.5 Seconds (9.0-12.0)
--- NOTE | 2021-10-10 06:05 | Electrocardiogram Report ---
Test Reason : Blood Pressure : / mmHG Vent. Rate : 078 BPM Atrial Rate : 078 BPM P-R Int : 196 ms QRS Dur : 062 ms QT Int : 428 ms P-R-T Axes : 048 -28 013 degrees QTc Int : 487 ms Poor data quality, interpretation may be adversely affected Normal sinus rhythm Low voltage QRS Possible Anterior infarct , age undetermined Possible Inferior infarct Nonspecific T wave abnormality Prolonged QT Abnormal ECG When compared with ECG of 29-AUG-2021 17:53, QT has lengthened Premature atrial complexes are no longer Present Confirmed by Hansel Jason ([id number]) on 10/10/2021 6:05:18 AM Referred By: Raz Hayes Confirmed By:Hansel Jason
[2021-10-10 06:18] LABS: Basophils # (auto) 0.01 K/uL (0-0.2); Basophils % (auto) 0.1 %; Eosinophils # (auto) 0.01 K/uL (0-0.5); Eosinophils % (auto) 0.1 %; Hematocrit (blood only) 30.1 % (37-47); Hemoglobin 9.6 g/dL (12.0-16.0); Immature Granulocytes # (auto) 0.07 K/uL (0.00-0.02); Immature Granulocytes % (auto) 0.7 %; Lymphocytes # (auto) 0.64 K/uL (1.2-3.4); Mean Corpuscular Hemoglobin 29.5 pg (25-34); Mean Corpuscular Hgb Conc 31.9 g/dL (32-36); Mean Corpuscular Volume 92.6 fL (80-100); Mean Platelet Volume 9.4 fL (7.4-10.4); Monocytes # (auto) 0.71 K/uL (0.11-0.59); Monocytes % (auto) 6.6 %; Neutrophils # (auto) 9.28 K/uL (1.4-6.5); Neutrophils % (auto) 86.5 %; Platelet Count 218 K/uL (130-400); RDW Coefficient of Variation 16.9 % (11.5-14.5); RDW Standard Deviation 54.4 fL (36.4-46.3); Red Blood Count 3.25 M/uL (4.2-5.4); White Blood Count 10.72 K/uL (4.8-10.8)
[2021-10-10 06:29] LABS: Albumin Globulin Ratio 0.6 (0.9-2); Albumin Level 2.2 gm/dl (3.4-5.0); BUN Creatinine Ratio 34.8 (10-20); Bilirubin,Total 1.3 mg/dl (0.2-1); Calcium 8.3 mg/dl (8.5-10.1); Creatinine Clr Calc Pharmacy 42.9 ml/min; Est GFR (African American) 79.6 ml/min; Est GFR (Non-African American) 68.7 ml/min; Globulin 3.7 gm/dl (2.5-4.0); Potassium 3.5 mmol/L (3.5-5.1); Total Protein 5.9 gm/dl (6.4-8.2)
[2021-10-10] MEDS: SODIUM CHLORIDE 0.9% 1000ML 1,000 ML IV SCH ×2 (07:11→21:54)
[2021-10-10] MEDS: LEVALBUTEROL 1.25MG/0.5ML NEB INH PRN (07:16)
[2021-10-10] MEDS: SODIUM CHLORIDE 0.9% NEBU SOLN 3 ML NEB SCH ×2 (07:16→21:08)
[2021-10-10] MEDS: ACETYLCYSTEINE 20% INHAL SOLN 4ML ***DISPENSED BY RESP. INH SCH ×2 (07:16→21:04)
[2021-10-10] MEDS: DOCUSATE SODIUM 100 MG CAP PO SCH (08:21)
[2021-10-10] MEDS: ADVANCED PROBIOTIC 1250 MG CAPSULE PO SCH (08:21)
[2021-10-10] MEDS: MULTIVITAMIN TAB PO SCH (08:21)
[2021-10-10] MEDS: UMECLIDINIUM/VILANTEROL 62.5/25MCG 7 PUFFS/INHALER INH SCH (08:22)
[2021-10-10] MEDS ORDERED: POTASSIUM CHLORIDE CRTAB 20 MEQ TABCR PO STA (09:59)
--- NOTE | 2021-10-10 13:56 | Surgery Progress Note ---
Date of Service October 10, 2021 Assessment & Plan (1) Splenic rupture: Plan: Patient is very stable and could be sent to the PCU or regular floor depending on the medical team From a surgical standpoint Admission and Anticipated Discharge Date Admission Date: October 09, 2021 Subjective Patient's vital signs are stable Extremities are warm and dry She is confused and combative at times Review of Systems Review of Systems: All systems reviewed & are unremarkable except as noted in HPI & below Physical Exam Physical Exam: Lying in bed comfortably Constitutional: well developed, well nourished, + ill appearing and + obese Eyes: PERRL, conjunctivae normal, anicteric sclerae ENMT: external ear and nose normal, oropharynx normal Neck: trachea midline, no thyromegaly Respiratory: no respiratory distress and no cough Auscultation: + diminished lung sounds and + crackles (Minimal crackles at the bases) Cardiovascular: Rate/Rhythm: regular rate and regular rhythm; not tachycardic Heart Sounds: normal S1 and normal S2; no murmur Extremities: no edema Gastrointestinal (Abdomen): Inspection/Auscultation: normal bowel sounds; abdomen not distended Percussion/Palpation: abdomen soft; abdomen nontender Musculoskeletal: No acute arthritis in any joint Neurologic: Alert, awake and oriented x3, she is generally weak and lethargic. Moves all the limbs equally Psychiatric: A+Ox3, euthymic affect Lymphatic: no cervical or axillary lymphadenopathy Results & Data ([facility]) Vital Signs (Past 12 Hours) Vital Signs Temp Pulse Pulse Resp BP Pulse Ox 10/10/21 12:22 37.0 C 80 24 146/69 H 97 10/10/21 08:21 84 10/10/21 07:50 36.8 C 78 20 144/77 H 10/10/21 07:18 78 16 96 PG Care Time/CCT Total # of Minutes Spent Total Time Spent with Patient: Total time spent is greater than 50% in coordination of care (as documented) at patient's floor/unit and/or counseling patient: Coding Level of Care Code 79137 Inpt Consult Level 3 Diagnoses Splenic rupture S36.09XA
--- NOTE | 2021-10-10 15:19 | Hospitalist Progress Note ---
Date of Service October 10, 2021 Assessment & Plan (1) Hypotension: Plan: 1) Hypotension: Plan: Multifactorial : Subacute blood loss secondary to traumatic splenic hemorrhage/hematoma (likely from recurrent falls during recent rehab facility stay) Hyponatremia, ARF secondary to poor p.o. intake Blood pressure remains reasonably stable on the lower side Increasing LFTs Likely has shock liver from hypotension With increasing INR to 1.9 She received 10 mg of vitamin K and 1 unit of FFP for acute bleeding LFTs are slightly better including INR LFTs remain elevated (2) Spleen hematoma without rupture of capsule, without open wound into cavity: Plan: Secondary to fall Has 12 x 12 x 9.3 cm splenic hematoma, small to moderate hemoperitoneum, adjacent perisplenic hemorrhage Appreciate surgery input and recommendation No indication for surgery Has been on intravenous Zosyn Will observe-no pain in the abdomen and the hemoglobin remains stable (3) Symptomatic anemia: Plan: Acute on chronic anemia, hemoglobin drop from baseline secondary to intra- abdominal bleed Received 1 unit of PRBC Hemoglobin is maintained just above 7 We will monitor CBC and transfuse as needed Received a total of 2 units of PRBC and 1 unit of FFP Hemoglobin remains stable at more than 9 We will transfer to medical floor (4) COPD (chronic obstructive pulmonary disease): Plan: Chronic respiratory failure secondary to COPD/bronchiectasis on home O2, pulmonary status at baseline pulmonary nodules (possible malignancy as per records), patient family not interested in aggressive work-up as per prior documentation No exacerbation (5) CKD (chronic kidney disease), stage III: (6) History of pulmonary embolism: Plan: hx PVD sp surgery/CVA as per records Past tobacco abuse dementia DVT prophylaxis. SCDs Re: Intra-abdominal blee DNR as per patient's prior directives as per family. Patient daughter requesting updates from providers. Ms. Laura Roach, contact #[phone]. Admission and Anticipated Discharge Date Admission Date: October 09, 2021 (2) Spleen hematoma without rupture of capsule, without open wound into cavity: (3) Symptomatic anemia: (4) Weakness: Admission and Anticipated Discharge Date Admission Date: October 09, 2021 Subjective 10/09/2021 The patient was seen and examined in ICU She has been generally weak but denies any abdominal pain, nausea and or vomiting She has minimal cough without any phlegm 10/10/2021 The patient was seen and examined in ICU She has been feeling much better today and denies any abdominal discomfort and/or pain Her hemoglobin remains stable more than 9 and denies any fever and/or chills Review of Systems Review of Systems: All systems reviewed and are unremarkable except as noted below Physical Exam Physical Exam: Lying in bed comfortably Constitutional: well developed, well nourished, + ill appearing and + obese Eyes: PERRL, conjunctivae normal, anicteric sclerae ENMT: external ear and nose normal, oropharynx normal Neck: trachea midline, no thyromegaly Respiratory: no respiratory distress and no cough Auscultation: + diminished lung sounds and + crackles (Minimal crackles at the bases) Cardiovascular: Rate/Rhythm: regular rate and regular rhythm; not tachycardic Heart Sounds: normal S1 and normal S2; no murmur Extremities: no edema Gastrointestinal (Abdomen): Inspection/Auscultation: normal bowel sounds; abdomen not distended Percussion/Palpation: abdomen soft; abdomen nontender Musculoskeletal: No acute arthritis in any joint Neurologic: Alert, awake and oriented x3 Psychiatric: A+Ox3, euthymic affect Lymphatic: no cervical or axillary lymphadenopathy Results & Data Results & Data ([facility]) Vital Signs (Past 12 Hours) Vital Signs Temp Pulse Pulse Resp BP Pulse Ox 10/10/21 12:22 37.0 C 80 24 146/69 H 97 10/10/21 08:21 84 10/10/21 07:50 36.8 C 78 20 144/77 H 10/10/21 07:18 78 16 96 Laboratory Results Short CBC 10/09/21 10/10/21 Range/Units 17:48 05:24 WBC 10.72 (4.8-10.8) K/uL Hgb 7.6 L 9.6 L (12.0-16.0) g/dL Hct 24.1 L 30.1 L (37-47) % Plt Count 218 (130-400) K/uL BMP 10/10/21 05:24 Sodium 137 Potassium 3.5 D Chloride 108 H Carbon Dioxide 22 BUN 28 H Creatinine 0.80 D Glucose 70 Calcium 8.3 L Liver Function 10/10/21 Range/Units 05:24 Total Bilirubin 1.3 H (0.2-1) mg/dl AST 685 H (15-37) U/L ALT 640 H (12-78) U/L Alkaline Phosphatase 165 H (45-117) U/L Albumin 2.2 L (3.4-5.0) gm/dl Medications Administered Current Inpatient Medications Acetaminophen (Acetaminophen 325 Mg Tab) 325 mg PO Q6H PRN PRN Reason: Mild Pain Stop: 11/08/21 03:27 Acetylcysteine (Acetylcysteine 20% Inhal Soln 4ml Dispensed By Resp.) 2.5 ml INH BIDR [facility] Stop: 11/08/21 18:59 Last Admin: 10/10/21 07:16 Dose: 2.5 ml Documented by: Docusate Sodium (Docusate Sodium 100 Mg Cap) 100 mg PO BID [facility] Stop: 11/08/21 08:59 Last Admin: 10/10/21 08:21 Dose: 100 mg Documented by: Hydromorphone HCl (Hydromorphone Inj 0.5 Mg/0.5 Ml Syr) 0.25 mg IV Q6H PRN PRN Reason: Pain Stop: 10/23/21 03:27 Sodium Chloride (Nss 1000ml) 1,000 mls @ 75 mls/hr IV .[id number] [facility] Stop: 11/08/21 01:29 Last Admin: 10/10/21 07:11 Dose: 75 mls/hr Documented by: Promethazine HCl 6.25 mg/ (Sodium Chloride) 50.25 mls @ 201 mls/hr IV Q6H PRN PRN Reason: Nausea And Vomiting Stop: 11/08/21 03:27 Piperacillin Sod/Tazobactam (Sod 3.375 gm/ Dextrose) 115 mls @ 28.75 mls/hr IV Q8H [facility]; Protocol Stop: 10/11/21 02:00 Last Admin: 10/10/21 14:26 Dose: 28.8 mls/hr Documented by: Ipratropium [place] (Ipratropium [place] Neb Soln 0.02% 2.5 Ml Vial) 0.5 mg INH Q4H PRN PRN Reason: sob/wheezing Stop: 11/08/21 03:27 Last Admin: 10/09/21 20:40 Dose: 0.5 mg Documented by: Lactobacillus Acidoph/Casei/Rhamnos (Advanced Probiotic 1250 Mg Capsule) 2 cap PO DAILY [facility] Stop: 11/08/21 08:59 Last Admin: 10/10/21 08:21 Dose: 2 cap Documented by: Levalbuterol HCl (Levalbuterol 1.25mg/0.5ml Neb) 1.25 mg INH Q4H PRN PRN Reason: sob/wheezing Stop: 11/08/21 03:27 Last Admin: 10/10/21 07:16 Dose: 1.25 mg Documented by: Miscellaneous Information (Piperacill/Tazobac Consult Active) 1 ea N/A UD PRN PRN Reason: Consult Stop: 11/07/21 21:53 Multivitamins (Multivitamin Tab) 1 tab PO DAILY [facility] Stop: 11/08/21 08:59 Last Admin: 10/10/21 08:21 Dose: 1 tab Documented by: Sertraline HCl (Sertraline Hcl 100 Mg Tablet) 100 mg PO QPM [facility] Stop: 11/08/21 20:59 Last Admin: 10/09/21 20:31 Dose: 100 mg Documented by: Sertraline HCl (Sertraline Hcl 50 Mg Tablet) 50 mg PO QPM [facility] Stop: 11/08/21 20:59 Last Admin: 10/09/21 20:30 Dose: 50 mg Documented by: Sodium Chloride (Sodium Chloride 0.9% Nebu Soln 3 Ml) 3 ml NEB BIDR [facility] Stop: 11/08/21 06:59 Last Admin: 10/10/21 07:16 Dose: 3 ml Documented by: Tramadol HCl (Tramadol Hcl 50 Mg Tablet) 25 mg PO Q4H PRN PRN Reason: Pain Stop: 11/08/21 03:27 Umeclidinium/Vilanterol (Umeclidinium/Vilanterol 62.5/25mcg 7 Puffs/Inhaler) 1 puffs INH DAILY [facility] Stop: 11/08/21 08:59 Last Admin: 10/10/21 08:22 Dose: 1 puffs Documented by: (1) Spleen hematoma without rupture of capsule, without open wound into cavity Encounter type: initial encounter Qualified Code(s): S36.029A - Unspecified contusion of spleen, initial encounter
[2021-10-10] MEDS ORDERED: ALBUTEROL 0.083% NEBU SOLN 3 ML VIAL INH PRN (19:17)
[2021-10-10] MEDS ORDERED: DICLOFENAC SOD 1% GEL 100 GM TUBE EXT PRN (19:17)
[2021-10-10] MEDS ORDERED: FUROSEMIDE 20 MG TAB PO PRN (19:17)
[2021-10-10] MEDS ORDERED: ALBUTEROL HFA 8 GM INHALER INH PRN (19:17)
[2021-10-10] MEDS: guaiFENesin 600 MG TABCR PO SCH (21:27)
[2021-10-11] MEDS: guaiFENesin 600 MG TABCR PO SCH ×2 (07:27→20:35)
[2021-10-11] MEDS: CHOLECALCIFEROL 1,000 UNITS 25 MCG TAB PO SCH (07:28)
[2021-10-11 08:27] LABS: Eosinophils # (auto) 0.04 K/uL (0-0.5); Eosinophils % (auto) 0.4 %; Hematocrit (blood only) 33.7 % (37-47); Hemoglobin 10.5 g/dL (12.0-16.0); Immature Granulocytes # (auto) 0.06 K/uL (0.00-0.02); Immature Granulocytes % (auto) 0.5 %; Lymphocytes # (auto) 0.67 K/uL (1.2-3.4); Lymphocytes % (auto) 5.9 %; Mean Corpuscular Hemoglobin 29.1 pg (25-34); Mean Corpuscular Hgb Conc 31.2 g/dL (32-36); Mean Corpuscular Volume 93.4 fL (80-100); Mean Platelet Volume 9.5 fL (7.4-10.4); Monocytes # (auto) 0.65 K/uL (0.11-0.59); Monocytes % (auto) 5.7 %; Neutrophils % (auto) 87.5 %; Platelet Count 215 K/uL (130-400); RDW Standard Deviation 57.7 fL (36.4-46.3); Red Blood Count 3.61 M/uL (4.2-5.4); White Blood Count 11.32 K/uL (4.8-10.8)
[2021-10-11 08:41] LABS: INR 1.2 (0.9-1.1)
[2021-10-11 09:03] LABS: Albumin Level 2.1 gm/dl (3.4-5.0); BUN Creatinine Ratio 24.6 (10-20); Calcium 8.3 mg/dl (8.5-10.1); Creatinine Clr Calc Pharmacy 53.6 ml/min; Est GFR (African American) 96.3 ml/min; Est GFR (Non-African American) 83.1 ml/min; Potassium 3.9 mmol/L (3.5-5.1)
[2021-10-11 09:09] LABS: Albumin Globulin Ratio 0.6 (0.9-2); Bilirubin,Total 1.6 mg/dl (0.2-1); Globulin 3.7 gm/dl (2.5-4.0); Total Protein 5.8 gm/dl (6.4-8.2)
--- NOTE | 2021-10-11 17:26 | Hospitalist Progress Note ---
Date of Service October 11, 2021 Assessment & Plan (1) Hypotension: Plan: 1) Hypotension: Plan: Multifactorial : Subacute blood loss secondary to traumatic splenic hemorrhage/hematoma (likely from recurrent falls during recent rehab facility stay) Hyponatremia, ARF secondary to poor p.o. intake Blood pressure remains reasonably stable on the lower side Blood pressure remains stable PT and OT evaluation Increasing LFTs Likely has shock liver from hypotension With increasing INR to 1.9 She received 10 mg of vitamin K and 1 unit of FFP for acute bleeding LFTs are slightly better including INR LFTs remain elevated-are improving gradually (2) Spleen hematoma without rupture of capsule, without open wound into cavity: Plan: Secondary to fall Has 12 x 12 x 9.3 cm splenic hematoma, small to moderate hemoperitoneum, adjacent perisplenic hemorrhage Appreciate surgery input and recommendation No indication for surgery Has been on intravenous Zosyn Will observe-no pain in the abdomen and the hemoglobin remains stable As any abdominal pain and/or distention (3) Symptomatic anemia: Plan: Acute on chronic anemia, hemoglobin drop from baseline secondary to intra- abdominal bleed Received 1 unit of PRBC Hemoglobin is maintained just above 7 We will monitor CBC and transfuse as needed Received a total of 2 units of PRBC and 1 unit of FFP Hemoglobin remains stable at more than 9 We will transfer to medical floor Hemoglobin remains stable (4) COPD (chronic obstructive pulmonary disease): Plan: Chronic respiratory failure secondary to COPD/bronchiectasis on home O2, pulmonary status at baseline pulmonary nodules (possible malignancy as per records), patient family not interested in aggressive work-up as per prior documentation No exacerbation (5) CKD (chronic kidney disease), stage III: (6) History of pulmonary embolism: Plan: hx PVD sp surgery/CVA as per records Past tobacco abuse dementia DVT prophylaxis. SCDs Re: Intra-abdominal blee DNR as per patient's prior directives as per family. Patient daughter requesting updates from providers. Lesvia Laura Marley, contact #[phone]. Admission and Anticipated Discharge Date Admission Date: October 09, 2021 (2) Spleen hematoma without rupture of capsule, without open wound into cavity: (3) Symptomatic anemia: (4) Weakness: Admission and Anticipated Discharge Date Admission Date: October 09, 2021 Subjective 10/09/2021 The patient was seen and examined in ICU She has been generally weak but denies any abdominal pain, nausea and or vomiting She has minimal cough without any phlegm 10/10/2021 The patient was seen and examined in ICU She has been feeling much better today and denies any abdominal discomfort and/or pain Her hemoglobin remains stable more than 9 and denies any fever and/or chills 10/11/2021 The patient was seen and examined in medical floor She remains weak and lethargic but otherwise denies any complaints She has been getting physical therapy Review of Systems Review of Systems: All systems reviewed and are unremarkable except as noted below Physical Exam Physical Exam: Lying in bed comfortably Constitutional: well developed, well nourished, + ill appearing and + obese Eyes: PERRL, conjunctivae normal, anicteric sclerae ENMT: external ear and nose normal, oropharynx normal Neck: trachea midline, no thyromegaly Respiratory: no respiratory distress and no cough Auscultation: + diminished lung sounds and + crackles (Minimal crackles at the bases) Cardiovascular: Rate/Rhythm: regular rate and regular rhythm; not tachycardic Heart Sounds: normal S1 and normal S2; no murmur Extremities: no edema Gastrointestinal (Abdomen): Inspection/Auscultation: normal bowel sounds; abdomen not distended Percussion/Palpation: abdomen soft; abdomen nontender Psychiatric: A+Ox3, euthymic affect Lymphatic: no cervical or axillary lymphadenopathy Results & Data Results & Data ([facility]) Vital Signs (Past 12 Hours) Vital Signs Temp Pulse Pulse Resp BP Pulse Ox 10/11/21 14:35 36.6 C 83 14 112/74 96 10/11/21 07:17 36.8 C 79 16 151/79 H 93 Laboratory Results Short CBC 10/11/21 Range/Units 07:56 WBC 11.32 H (4.8-10.8) K/uL Hgb 10.5 L (12.0-16.0) g/dL Hct 33.7 L (37-47) % Plt Count 215 (130-400) K/uL BMP 10/11/21 07:56 Sodium 139 Potassium 3.9 Chloride 108 H Carbon Dioxide 20 L BUN 16 Creatinine 0.64 Glucose 71 Calcium 8.3 L Liver Function 10/11/21 Range/Units 07:56 Total Bilirubin 1.6 H (0.2-1) mg/dl AST 232 H (15-37) U/L ALT 456 H (12-78) U/L Alkaline Phosphatase 156 H (45-117) U/L Albumin 2.1 L (3.4-5.0) gm/dl Medications Administered Current Inpatient Medications Albuterol (Albuterol 0.083% Nebu Soln 3 Ml Vial) 2.5 mg INH QID PRN PRN Reason: sob Stop: 11/09/21 19:16 Last Admin: 10/10/21 21:03 Dose: 2.5 mg Documented by: Albuterol (Albuterol Hfa 8 Gm Inhaler) 2 puffs INH QID PRN PRN Reason: Shortness Of Breath Stop: 11/09/21 19:16 Diclofenac Sodium (Diclofenac Sod 1% Gel 100 Gm Tube) 2 gm EXT QID PRN PRN Reason: Pain Stop: 11/09/21 19:16 Furosemide (Furosemide 20 Mg Tab) 20 mg PO DAILY PRN PRN Reason: Fluid Retention Stop: 11/09/21 19:16 Guaifenesin (Guaifenesin 600 Mg Tabcr) 1,200 mg PO BID [facility] Stop: 11/09/21 20:59 Last Admin: 10/11/21 07:27 Dose: 1,200 mg Documented by: Promethazine HCl 6.25 mg/ (Sodium Chloride) 50.25 mls @ 201 mls/hr IV Q6H PRN PRN Reason: Nausea And Vomiting Stop: 11/08/21 03:27 Tramadol HCl (Tramadol Hcl 50 Mg Tablet) 25 mg PO Q4H PRN PRN Reason: Pain Stop: 11/08/21 03:27 Vitamin D (Cholecalciferol 1,000 Units 25 Mcg Tab) 2,000 units PO QAM [facility] Stop: 11/10/21 08:59 Last Admin: 10/11/21 07:28 Dose: 2,000 units Documented by: (1) Spleen hematoma without rupture of capsule, without open wound into cavity Encounter type: initial encounter Qualified Code(s): S36.029A - Unspecified contusion of spleen, initial encounter
--- NOTE | 2021-10-12 05:33 | Surgery Progress Note ---
Date of Service October 12, 2021 Assessment & Plan (1) Spleen hematoma without rupture of capsule, without open wound into cavity: Plan: Patient is stable at the present time: She is not tachycardic or hypotensive and does not complain of any abdominal pain She has received a total of 2 units of packed red blood cells this admission with a rise of her hemoglobin from 6.7 to 10.5. She is also received 1 unit of fresh frozen plasma and her INR has went from 1.9 to 1.2 CBC this a.m. is pending As patient is currently stable no plans for surgical intervention. as above. no new complaints. H/H improving. no evidence of bleeding. will sign off. please call if any questions/concerns. Admission and Anticipated Discharge Date Admission Date: October 09, 2021 Subjective Patient is resting comfortably in bed. She denies any nausea vomiting. She denies any lightheadedness or dizziness. She denies any abdominal pain. Physical Exam Gastrointestinal (Abdomen): Abdomen is soft and nondistended. There is no pain with palpation in the left upper quadrant. There are no areas of ecchymosis on her abdominal wall. Results & Data ([facility]) Vital Signs (Past 12 Hours) Vital Signs Temp Pulse Resp BP Pulse Ox 10/11/21 23:01 36.6 C 89 17 133/78 96 PG Care Time/CCT Total # of Minutes Spent Total Time Spent with Patient: Total time spent is greater than 50% in coordination of care (as documented) at patient's floor/unit and/or counseling patient: Coding Level of Care Code 17094 Subseq Hosp Care Lvl 2 Diagnoses Spleen hematoma without rupture of capsule, without open wound into cavity S36.029A Encounter type: initial encounter (1) Spleen hematoma without rupture of capsule, without open wound into cavity Encounter type: initial encounter Qualified Code(s): S36.029A - Unspecified contusion of spleen, initial encounter
[2021-10-12] MEDS: CHOLECALCIFEROL 1,000 UNITS 25 MCG TAB PO SCH (07:57)
[2021-10-12] MEDS: guaiFENesin 600 MG TABCR PO SCH ×2 (07:57→21:59)
[2021-10-12 08:27] LABS: Eosinophils # (auto) 0.08 K/uL (0-0.5); Eosinophils % (auto) 0.7 %; Hematocrit (blood only) 33.9 % (37-47); Hemoglobin 10.7 g/dL (12.0-16.0); Immature Granulocytes # (auto) 0.05 K/uL (0.00-0.02); Immature Granulocytes % (auto) 0.4 %; Lymphocytes # (auto) 0.68 K/uL (1.2-3.4); Lymphocytes % (auto) 5.7 %; Mean Corpuscular Hemoglobin 29.4 pg (25-34); Mean Corpuscular Hgb Conc 31.6 g/dL (32-36); Mean Corpuscular Volume 93.1 fL (80-100); Mean Platelet Volume 9.8 fL (7.4-10.4); Monocytes # (auto) 0.74 K/uL (0.11-0.59); Monocytes % (auto) 6.3 %; Neutrophils # (auto) 10.28 K/uL (1.4-6.5); Neutrophils % (auto) 86.9 %; Platelet Count 196 K/uL (130-400); RDW Coefficient of Variation 17.7 % (11.5-14.5); RDW Standard Deviation 58.3 fL (36.4-46.3); Red Blood Count 3.64 M/uL (4.2-5.4); White Blood Count 11.83 K/uL (4.8-10.8)
--- NOTE | 2021-10-12 16:00 | Hospitalist Progress Note ---
Date of Service October 12, 2021 Assessment & Plan (1) Hypotension: Plan: 1) Hypotension: Plan: Multifactorial : Subacute blood loss secondary to traumatic splenic hemorrhage/hematoma (likely from recurrent falls during recent rehab facility stay) Hyponatremia, ARF secondary to poor p.o. intake Blood pressure remains reasonably stable on the lower side Blood pressure remains stable PT and OT evaluation Will likely need placement Increasing LFTs Likely has shock liver from hypotension With increasing INR to 1.9 She received 10 mg of vitamin K and 1 unit of FFP for acute bleeding LFTs are slightly better including INR LFTs remain elevated-are improving gradually We will check LFTs again tomorrow (2) Spleen hematoma without rupture of capsule, without open wound into cavity: Plan: Secondary to fall Has 12 x 12 x 9.3 cm splenic hematoma, small to moderate hemoperitoneum, adjacent perisplenic hemorrhage Appreciate surgery input and recommendation No indication for surgery Has been on intravenous Zosyn Will observe-no pain in the abdomen and the hemoglobin remains stable As any abdominal pain and/or distention Hemoglobin is stable and does not have any abdominal pain and/or symptoms (3) Symptomatic anemia: Plan: Acute on chronic anemia, hemoglobin drop from baseline secondary to intra- abdominal bleed Received 1 unit of PRBC Hemoglobin is maintained just above 7 We will monitor CBC and transfuse as needed Received a total of 2 units of PRBC and 1 unit of FFP Hemoglobin remains stable at more than 9 We will transfer to medical floor Hemoglobin remains stable (4) COPD (chronic obstructive pulmonary disease): Plan: Chronic respiratory failure secondary to COPD/bronchiectasis on home O2, pulmonary status at baseline pulmonary nodules (possible malignancy as per records), patient family not interested in aggressive work-up as per prior documentation No exacerbation (5) CKD (chronic kidney disease), stage III: (6) History of pulmonary embolism: Plan: hx PVD sp surgery/CVA as per records Past tobacco abuse dementia DVT prophylaxis. SCDs Re: Intra-abdominal blee DNR as per patient's prior directives as per family. Patient daughter requesting updates from providers. Ms. Laura Roach, contact #[phone]. Admission and Anticipated Discharge Date Admission Date: October 09, 2021 (2) Spleen hematoma without rupture of capsule, without open wound into cavity: (3) Symptomatic anemia: (4) Weakness: Admission and Anticipated Discharge Date Admission Date: October 09, 2021 Subjective 10/09/2021 The patient was seen and examined in ICU She has been generally weak but denies any abdominal pain, nausea and or vomiting She has minimal cough without any phlegm 10/10/2021 The patient was seen and examined in ICU She has been feeling much better today and denies any abdominal discomfort and/or pain Her hemoglobin remains stable more than 9 and denies any fever and/or chills 10/11/2021 The patient was seen and examined in medical floor She remains weak and lethargic but otherwise denies any complaints She has been getting physical therapy 10/12/2021 The patient was seen and examined in medical floor She does not have any symptoms except weakness She has been getting PT and OT Review of Systems Review of Systems: All systems reviewed and are unremarkable except as noted below Physical Exam Physical Exam: Lying in bed comfortably Constitutional: well developed, well nourished, + ill appearing and + obese Eyes: PERRL, conjunctivae normal, anicteric sclerae ENMT: external ear and nose normal, oropharynx normal Neck: trachea midline, no thyromegaly Respiratory: no respiratory distress and no cough Auscultation: + diminished lung sounds and + crackles (Minimal crackles at the bases) Cardiovascular: Rate/Rhythm: regular rate and regular rhythm; not tachycardic Heart Sounds: normal S1 and normal S2; no murmur Extremities: no edema Gastrointestinal (Abdomen): Inspection/Auscultation: normal bowel sounds; abdomen not distended Percussion/Palpation: abdomen soft; abdomen nontender Psychiatric: A+Ox3, euthymic affect Lymphatic: no cervical or axillary lymphadenopathy Results & Data Results & Data ([facility]) Vital Signs (Past 12 Hours) Vital Signs Temp Pulse Resp BP Pulse Ox 10/12/21 15:48 37.2 C 82 16 133/72 97 10/12/21 07:14 36.7 C 77 12 134/79 96 Laboratory Results Short CBC 10/12/21 Range/Units 07:51 WBC 11.83 H (4.8-10.8) K/uL Hgb 10.7 L (12.0-16.0) g/dL Hct 33.9 L (37-47) % Plt Count 196 (130-400) K/uL Medications Administered Current Inpatient Medications Albuterol (Albuterol 0.083% Nebu Soln 3 Ml Vial) 2.5 mg INH QID PRN PRN Reason: sob Stop: 11/09/21 19:16 Last Admin: 10/10/21 21:03 Dose: 2.5 mg Documented by: Albuterol (Albuterol Hfa 8 Gm Inhaler) 2 puffs INH QID PRN PRN Reason: Shortness Of Breath Stop: 11/09/21 19:16 Diclofenac Sodium (Diclofenac Sod 1% Gel 100 Gm Tube) 2 gm EXT QID PRN PRN Reason: Pain Stop: 11/09/21 19:16 Furosemide (Furosemide 20 Mg Tab) 20 mg PO DAILY PRN PRN Reason: Fluid Retention Stop: 11/09/21 19:16 Guaifenesin (Guaifenesin 600 Mg Tabcr) 1,200 mg PO BID [facility] Stop: 11/09/21 20:59 Last Admin: 10/12/21 07:57 Dose: 1,200 mg Documented by: Promethazine HCl 6.25 mg/ (Sodium Chloride) 50.25 mls @ 201 mls/hr IV Q6H PRN PRN Reason: Nausea And Vomiting Stop: 11/08/21 03:27 Tramadol HCl (Tramadol Hcl 50 Mg Tablet) 25 mg PO Q4H PRN PRN Reason: Pain Stop: 11/08/21 03:27 Vitamin D (Cholecalciferol 1,000 Units 25 Mcg Tab) 2,000 units PO QAM [facility] Stop: 11/10/21 08:59 Last Admin: 10/12/21 07:57 Dose: 2,000 units Documented by: (1) Spleen hematoma without rupture of capsule, without open wound into cavity Encounter type: initial encounter Qualified Code(s): S36.029A - Unspecified contusion of spleen, initial encounter
[2021-10-13 08:31] LABS: Eosinophils # (auto) 0.02 K/uL (0-0.5); Eosinophils % (auto) 0.2 %; Hematocrit (blood only) 33.9 % (37-47); Hemoglobin 10.7 g/dL (12.0-16.0); Immature Granulocytes # (auto) 0.04 K/uL (0.00-0.02); Immature Granulocytes % (auto) 0.4 %; Lymphocytes # (auto) 0.72 K/uL (1.2-3.4); Lymphocytes % (auto) 6.4 %; Mean Corpuscular Hemoglobin 29.5 pg (25-34); Mean Corpuscular Hgb Conc 31.6 g/dL (32-36); Mean Corpuscular Volume 93.4 fL (80-100); Mean Platelet Volume 9.5 fL (7.4-10.4); Monocytes # (auto) 0.71 K/uL (0.11-0.59); Monocytes % (auto) 6.3 %; Neutrophils # (auto) 9.76 K/uL (1.4-6.5); Neutrophils % (auto) 86.7 %; Platelet Count 175 K/uL (130-400); RDW Coefficient of Variation 17.5 % (11.5-14.5); RDW Standard Deviation 58.9 fL (36.4-46.3); Red Blood Count 3.63 M/uL (4.2-5.4); White Blood Count 11.25 K/uL (4.8-10.8)
[2021-10-13] MEDS: guaiFENesin 600 MG TABCR PO SCH ×2 (08:49→20:27)
[2021-10-13] MEDS: CHOLECALCIFEROL 1,000 UNITS 25 MCG TAB PO SCH (08:49)
[2021-10-13 09:12] LABS: Albumin Globulin Ratio 0.5 (0.9-2); Albumin Level 1.9 gm/dl (3.4-5.0); BUN Creatinine Ratio 34.1 (10-20); Bilirubin,Total 1.2 mg/dl (0.2-1); Calcium 8.4 mg/dl (8.5-10.1); Est GFR (African American) 105.2 ml/min; Est GFR (Non-African American) 90.7 ml/min; Globulin 3.7 gm/dl (2.5-4.0); Potassium 3.4 mmol/L (3.5-5.1); Total Protein 5.6 gm/dl (6.4-8.2)
[2021-10-13] MEDS ORDERED: POTASSIUM CHLORIDE CRTAB 20 MEQ TABCR PO STA (14:50)
--- NOTE | 2021-10-13 16:40 | Hospitalist Progress Note ---
Date of Service October 13, 2021 Assessment & Plan (1) Hypotension: Plan: 1) Hypotension: Plan: Multifactorial : Subacute blood loss secondary to traumatic splenic hemorrhage/hematoma (likely from recurrent falls during recent rehab facility stay) Hyponatremia, ARF secondary to poor p.o. intake Blood pressure remains reasonably stable on the lower side Blood pressure remains stable PT and OT evaluation-recommended home with continued home health nurse and home physical therapy Blood pressure is maintained Increasing LFTs Likely has shock liver from hypotension With increasing INR to 1.9 She received 10 mg of vitamin K and 1 unit of FFP for acute bleeding LFTs are slightly better including INR LFTs remain elevated-are improving gradually We will check LFTs again tomorrow-LFTs are much improved (2) Spleen hematoma without rupture of capsule, without open wound into cavity: Plan: Secondary to fall Has 12 x 12 x 9.3 cm splenic hematoma, small to moderate hemoperitoneum, adjacent perisplenic hemorrhage Appreciate surgery input and recommendation No indication for surgery Has been on intravenous Zosyn Will observe-no pain in the abdomen and the hemoglobin remains stable As any abdominal pain and/or distention Hemoglobin is stable and does not have any abdominal pain and/or symptoms Doubt any more ongoing splenic hemorrhage Discussed with the daughter and she will be discharged home tomorrow (3) Symptomatic anemia: Plan: Acute on chronic anemia, hemoglobin drop from baseline secondary to intra- abdominal bleed Received 1 unit of PRBC Hemoglobin is maintained just above 7 We will monitor CBC and transfuse as needed Received a total of 2 units of PRBC and 1 unit of FFP Hemoglobin remains stable at more than 9 We will transfer to medical floor Hemoglobin remains stable (4) COPD (chronic obstructive pulmonary disease): Plan: Chronic respiratory failure secondary to COPD/bronchiectasis on home O2, pulmonary status at baseline pulmonary nodules (possible malignancy as per records), patient family not interested in aggressive work-up as per prior documentation No exacerbation (5) CKD (chronic kidney disease), stage III: (6) History of pulmonary embolism: Plan: hx PVD sp surgery/CVA as per records Past tobacco abuse dementia DVT prophylaxis. SCDs Re: Intra-abdominal blee DNR as per patient's prior directives as per family. Patient daughter requesting updates from providers. Lesvia Laura Christiansontanya, contact #[phone]. Admission and Anticipated Discharge Date Admission Date: October 09, 2021 (2) Spleen hematoma without rupture of capsule, without open wound into cavity: (3) Symptomatic anemia: (4) Weakness: Admission and Anticipated Discharge Date Admission Date: October 09, 2021 Subjective 10/09/2021 The patient was seen and examined in ICU She has been generally weak but denies any abdominal pain, nausea and or vomiting She has minimal cough without any phlegm 10/10/2021 The patient was seen and examined in ICU She has been feeling much better today and denies any abdominal discomfort and/or pain Her hemoglobin remains stable more than 9 and denies any fever and/or chills 10/11/2021 The patient was seen and examined in medical floor She remains weak and lethargic but otherwise denies any complaints She has been getting physical therapy 10/12/2021 The patient was seen and examined in medical floor She does not have any symptoms except weakness She has been getting PT and OT 10/13/2021 The patient was seen and examined in medical floor She remains weak and lethargic but denies any other symptoms She has been getting physical therapy and surgery signed out Review of Systems Review of Systems: All systems reviewed and are unremarkable except as noted below Musculoskeletal: Generalized weakness without any acute arthritis Physical Exam Physical Exam: Lying in bed comfortably Constitutional: well developed, well nourished, + ill appearing and + obese Eyes: PERRL, conjunctivae normal, anicteric sclerae ENMT: external ear and nose normal, oropharynx normal Neck: trachea midline, no thyromegaly Respiratory: no respiratory distress and no cough Auscultation: + dimin ished lung sounds and + crackles (Minimal crackles at the bases) Cardiovascular: Rate/Rhythm: regular rate and regular rhythm; not tachycardic Heart Sounds: normal S1 and normal S2; no murmur Extremities: no edema Gastrointestinal (Abdomen): Inspection/Auscultation: normal bowel sounds; abdomen not distended Percussion/Palpation: abdomen soft; abdomen nontender Musculoskeletal: No acute arthritis in any joint Neurologic: Alert and awake. Pleasantly confused. Generally weak Psychiatric: A+Ox3, euthymic affect Lymphatic: no cervical or axillary lymphadenopathy Results & Data Results & Data ([facility]) Vital Signs (Past 12 Hours) Vital Signs Temp Pulse Resp BP Pulse Ox 10/13/21 16:12 37.0 C 76 16 145/80 H 95 10/13/21 09:01 36.7 C 72 16 137/71 95 Laboratory Results Short CBC 10/13/21 Range/Units 07:48 WBC 11.25 H (4.8-10.8) K/uL Hgb 10.7 L (12.0-16.0) g/dL Hct 33.9 L (37-47) % Plt Count 175 (130-400) K/uL BMP 10/13/21 07:48 Sodium 141 Potassium 3.4 L Chloride 110 H Carbon Dioxide 21 BUN 17 Creatinine 0.49 L Glucose 114 H Calcium 8.4 L Liver Function 10/13/21 Range/Units 07:48 Total Bilirubin 1.2 H (0.2-1) mg/dl AST 33 (15-37) U/L ALT 165 H (12-78) U/L Alkaline Phosphatase 136 H (45-117) U/L Albumin 1.9 L (3.4-5.0) gm/dl Medications Administered Current Inpatient Medications Albuterol (Albuterol 0.083% Nebu Soln 3 Ml Vial) 2.5 mg INH QID PRN PRN Reason: sob Stop: 11/09/21 19:16 Last Admin: 10/10/21 21:03 Dose: 2.5 mg Documented by: Albuterol (Albuterol Hfa 8 Gm Inhaler) 2 puffs INH QID PRN PRN Reason: Shortness Of Breath Stop: 11/09/21 19:16 Diclofenac Sodium (Diclofenac Sod 1% Gel 100 Gm Tube) 2 gm EXT QID PRN PRN Reason: Pain Stop: 11/09/21 19:16 Furosemide (Furosemide 20 Mg Tab) 20 mg PO DAILY PRN PRN Reason: Fluid Retention Stop: 11/09/21 19:16 Guaifenesin (Guaifenesin 600 Mg Tabcr) 1,200 mg PO BID [facility] Stop: 11/09/21 20:59 Last Admin: 10/13/21 08:49 Dose: 1,200 mg Documented by: Promethazine HCl 6.25 mg/ (Sodium Chloride) 50.25 mls @ 201 mls/hr IV Q6H PRN PRN Reason: Nausea And Vomiting Stop: 11/08/21 03:27 Tramadol HCl (Tramadol Hcl 50 Mg Tablet) 25 mg PO Q4H PRN PRN Reason: Pain Stop: 11/08/21 03:27 Vitamin D (Cholecalciferol 1,000 Units 25 Mcg Tab) 2,000 units PO QAM [facility] Stop: 11/10/21 08:59 Last Admin: 10/13/21 08:49 Dose: 2,000 units Documented by: (1) Spleen hematoma without rupture of capsule, without open wound into cavity Encounter type: initial encounter Qualified Code(s): S36.029A - Unspecified contusion of spleen, initial encounter
[2021-10-14] MEDS: guaiFENesin 600 MG TABCR PO SCH ×2 (07:55→20:00)
[2021-10-14] MEDS: CHOLECALCIFEROL 1,000 UNITS 25 MCG TAB PO SCH (07:55)
--- NOTE | 2021-10-14 10:46 | Hospitalist Progress Note ---
Date of Service October 14, 2021 Assessment & Plan (1) Hypotension: Plan: 1) Hypotension: Plan: Multifactorial : Subacute blood loss secondary to traumatic splenic hemorrhage/hematoma (likely from recurrent falls during recent rehab facility stay) Hyponatremia, ARF secondary to poor p.o. intake Blood pressure remains reasonably stable on the lower side Blood pressure remains stable PT and OT evaluation-recommended home with continued home health nurse and home physical therapy Blood pressure is a stable Increasing LFTs Likely has shock liver from hypotension With increasing INR to 1.9 She received 10 mg of vitamin K and 1 unit of FFP for acute bleeding LFTs are slightly better including INR LFTs remain elevated-are improving gradually We will check LFTs again tomorrow-LFTs are much improved Advised to have LFTs checked as an output (2) Spleen hematoma without rupture of capsule, without open wound into cavity: Plan: Secondary to fall Has 12 x 12 x 9.3 cm splenic hematoma, small to moderate hemoperitoneum, adjacent perisplenic hemorrhage Appreciate surgery input and recommendation No indication for surgery Has been on intravenous Zosyn Will observe-no pain in the abdomen and the hemoglobin remains stable As any abdominal pain and/or distention Hemoglobin is stable and does not have any abdominal pain and/or symptoms Doubt any more ongoing splenic hemorrhage Discussed with the daughter and she will be discharged home tomorrow (3) Symptomatic anemia: Plan: Acute on chronic anemia, hemoglobin drop from baseline secondary to intra- abdominal bleed Received 1 unit of PRBC Hemoglobin is maintained just above 7 We will monitor CBC and transfuse as needed Received a total of 2 units of PRBC and 1 unit of FFP Hemoglobin remains stable at more than 9 We will transfer to medical floor Hemoglobin remains stable-at 10.7 as of 10/13/2021 (4) COPD (chronic obstructive pulmonary disease): Plan: Chronic respiratory failure secondary to COPD/bronchiectasis on home O2, pulmonary status at baseline pulmonary nodules (possible malignancy as per records), patient family not interested in aggressive work-up as per prior documentation No exacerbation (5) CKD (chronic kidney disease), stage III: Creatinine remains stable (6) History of pulmonary embolism: Plan: hx PVD sp surgery/CVA as per records Past tobacco abuse dementia DVT prophylaxis. SCDs Re: Intra-abdominal blee DNR as per patient's prior directives as per family. Patient daughter requesting updates from providers. Ms. Laura Roach, contact #[phone]. Admission and Anticipated Discharge Date Admission Date: October 09, 2021 (2) Spleen hematoma without rupture of capsule, without open wound into cavity: (3) Symptomatic anemia: (4) Weakness: Admission and Anticipated Discharge Date Admission Date: October 09, 2021 Subjective 10/09/2021 The patient was seen and examined in ICU She has been generally weak but denies any abdominal pain, nausea and or vomiti ng She has minimal cough without any phlegm 10/10/2021 The patient was seen and examined in ICU She has been feeling much better today and denies any abdominal discomfort and/or pain Her hemoglobin remains stable more than 9 and denies any fever and/or chills 10/11/2021 The patient was seen and examined in medical floor She remains weak and lethargic but otherwise denies any complaints She has been getting physical therapy 10/12/2021 The patient was seen and examined in medical floor She does not have any symptoms except weakness She has been getting PT and OT 10/13/2021 The patient was seen and examined in medical floor She remains weak and lethargic but denies any other symptoms She has been getting physical therapy and surgery signed out 10/14/2021 The patient was seen and examined in medical floor She remains stable and will be discharged home this afternoon She denies any symptoms Review of Systems Review of Systems: All systems reviewed and are unremarkable except as noted below Musculoskeletal: Generalized weakness without any acute arthritis Physical Exam Physical Exam: Sitting on the bed without any acute distress Constitutional: well developed, well nourished, + ill appearing and + obese Eyes: PERRL, conjunctivae normal, anicteric sclerae ENMT: external ear and nose normal, oropharynx normal Neck: trachea midline, no thyromegaly Respiratory: no respiratory distress and no cough Auscultation: + diminished lung sounds and + crackles (Minimal crackles at the bases) Cardiovascular: Rate/Rhythm: regular rate and regular rhythm; not tachycardic Heart Sounds: normal S1 and normal S2; no murmur Extremities: no edema Gastrointestinal (Abdomen): Inspection/Auscultation: normal bowel sounds; abdomen not distended Percussion/Palpation: abdomen soft; abdomen nontender Musculoskeletal: No acute arthritis in any joint Neurologic: Alert and awake. Pleasantly confused. Generally weak but no focal neuro deficit Psychiatric: A+Ox3, euthymic affect Lymphatic: no cervical or axillary lymphadenopathy Results & Data Results & Data ([facility]) Vital Signs (Past 12 Hours) Vital Signs Temp Pulse Resp BP Pulse Ox 10/14/21 07:28 36.9 C 78 16 130/74 94 10/13/21 23:05 37.1 C 77 17 149/80 H 95 Medications Administered Current Inpatient Medications Albuterol (Albuterol 0.083% Nebu Soln 3 Ml Vial) 2.5 mg INH QID PRN PRN Reason: sob Stop: 11/09/21 19:16 Last Admin: 10/10/21 21:03 Dose: 2.5 mg Documented by: Albuterol (Albuterol Hfa 8 Gm Inhaler) 2 puffs INH QID PRN PRN Reason: Shortness Of Breath Stop: 11/09/21 19:16 Diclofenac Sodium (Diclofenac Sod 1% Gel 100 Gm Tube) 2 gm EXT QID PRN PRN Reason: Pain Stop: 11/09/21 19:16 Furosemide (Furosemide 20 Mg Tab) 20 mg PO DAILY PRN PRN Reason: Fluid Retention Stop: 11/09/21 19:16 Guaifenesin (Guaifenesin 600 Mg Tabcr) 1,200 mg PO BID ALEX Stop: 11/09/21 20:59 Last Admin: 10/14/21 07:55 Dose: 1,200 mg Documented by: Promethazine HCl 6.25 mg/ (Sodium Chloride) 50.25 mls @ 201 mls/hr IV Q6H PRN PRN Reason: Nausea And Vomiting Stop: 11/08/21 03:27 Tramadol HCl (Tramadol Hcl 50 Mg Tablet) 25 mg PO Q4H PRN PRN Reason: Pain Stop: 11/08/21 03:27 Vitamin D (Cholecalciferol 1,000 Units 25 Mcg Tab) 2,000 units PO QAM ALEX Stop: 11/10/21 08:59 Last Admin: 10/14/21 07:55 Dose: 2,000 units Documented by: (1) Spleen hematoma without rupture of capsule, without open wound into cavity Encounter type: initial encounter Qualified Code(s): S36.029A - Unspecified contusion of spleen, initial encounter
[2021-10-14] MEDS: D5NSS + 20MEQ KCL 20 MEQ/1,000 ML BAG IV SCH (17:46)
[2021-10-15] MEDS: D5NSS + 20MEQ KCL 20 MEQ/1,000 ML BAG IV SCH (06:14)
[2021-10-15 07:57] LABS: Basophils # (auto) 0.02 K/uL (0-0.2); Basophils % (auto) 0.2 %; Eosinophils # (auto) 0.14 K/uL (0-0.5); Eosinophils % (auto) 1.1 %; Hematocrit (blood only) 36.8 % (37-47); Hemoglobin 11.3 g/dL (12.0-16.0); Immature Granulocytes # (auto) 0.08 K/uL (0.00-0.02); Immature Granulocytes % (auto) 0.6 %; Lymphocytes # (auto) 0.82 K/uL (1.2-3.4); Lymphocytes % (auto) 6.5 %; Mean Corpuscular Hgb Conc 30.7 g/dL (32-36); Mean Corpuscular Volume 94.6 fL (80-100); Mean Platelet Volume 9.9 fL (7.4-10.4); Monocytes # (auto) 0.95 K/uL (0.11-0.59); Monocytes % (auto) 7.5 %; Neutrophils # (auto) 10.66 K/uL (1.4-6.5); Neutrophils % (auto) 84.1 %; Platelet Count 160 K/uL (130-400); RDW Coefficient of Variation 17.2 % (11.5-14.5); RDW Standard Deviation 58.4 fL (36.4-46.3); Red Blood Count 3.89 M/uL (4.2-5.4); White Blood Count 12.67 K/uL (4.8-10.8)
[2021-10-15 08:17] LABS: Albumin Globulin Ratio 0.5 (0.9-2); BUN Creatinine Ratio 27.1 (10-20); Bilirubin,Total 0.9 mg/dl (0.2-1); Calcium 8.4 mg/dl (8.5-10.1); Creatinine Clr Calc Pharmacy 63.5 ml/min; Est GFR (African American) 101.9 ml/min; Est GFR (Non-African American) 87.9 ml/min; Globulin 3.7 gm/dl (2.5-4.0); Magnesium 1.8 mg/dl (1.8-2.4); Phosphorus 3.5 mg/dl (2.5-4.9); Potassium 4.1 mmol/L (3.5-5.1); Total Protein 5.7 gm/dl (6.4-8.2)
[2021-10-15] MEDS: guaiFENesin 600 MG TABCR PO SCH ×2 (08:24→20:26)
[2021-10-15] MEDS: CHOLECALCIFEROL 1,000 UNITS 25 MCG TAB PO SCH (08:24)
--- NOTE | 2021-10-15 16:33 | Hospitalist Progress Note ---
Date of Service October 15, 2021 Assessment & Plan (1) Hypotension: Plan: 1) Hypotension: Plan: Multifactorial : Subacute blood loss secondary to traumatic splenic hemorrhage/hematoma (likely from recurrent falls during recent rehab facility stay) Hyponatremia, ARF secondary to poor p.o. intake Blood pressure remains reasonably stable on the lower side Blood pressure remains stable PT and OT evaluation-recommended home with continued home health nurse and home physical therapy Blood pressure is a stable No more issues with blood pressure Increasing LFTs Likely has shock liver from hypotension With increasing INR to 1.9 She received 10 mg of vitamin K and 1 unit of FFP for acute bleeding LFTs are slightly better including INR LFTs remain elevated-are improving gradually We will check LFTs again tomorrow-LFTs are much improved We will check LFTs again tomorrow (2) Spleen hematoma without rupture of capsule, without open wound into cavity: Plan: Secondary to fall Has 12 x 12 x 9.3 cm splenic hematoma, small to moderate hemoperitoneum, adjacent perisplenic hemorrhage Appreciate surgery input and recommendation No indication for surgery Has been on intravenous Zosyn Will observe-no pain in the abdomen and the hemoglobin remains stable As any abdominal pain and/or distention Hemoglobin is stable and does not have any abdominal pain and/or symptoms Doubt any more ongoing splenic hemorrhage Discussed with the daughter and she will be discharged home tomorrow Hemoglobin remains stable (3) Symptomatic anemia: Plan: Acute on chronic anemia, hemoglobin drop from baseline secondary to intra- abdominal bleed Received 1 unit of PRBC Hemoglobin is maintained just above 7 We will monitor CBC and transfuse as needed Received a total of 2 units of PRBC and 1 unit of FFP Hemoglobin remains stable at more than 9 We will transfer to medical floor Hemoglobin remains stable-at 10.7 as of 10/13/2021 (4) COPD (chronic obstructive pulmonary disease): Plan: Chronic respiratory failure secondary to COPD/bronchiectasis on home O2, pulmonary status at baseline pulmonary nodules (possible malignancy as per records), patient family not interested in aggressive work-up as per prior documentation No exacerbation (5) CKD (chronic kidney disease), stage III: Creatinine remains stable (6) History of pulmonary embolism: Plan: hx PVD sp surgery/CVA as per records Past tobacco abuse dementia DVT prophylaxis. SCDs Re: Intra-abdominal blee DNR as per patient's prior directives as per family. Family is deciding for rehab placement Patient daughter requesting updates from providers. Ms. Laura Roach, contact #[phone]. Admission and Anticipated Discharge Date Admission Date: October 09, 2021 (2) Spleen hematoma without rupture of capsule, without open wound into cavity: (3) Symptomatic anemia: (4) Weakness: Admission and Anticipated Discharge Date Admission Date: October 09, 2021 Subjective 10/09/2021 The patient was seen and examined in ICU She has been generally weak but denies any abdominal pain, nausea and or vomiting She has minimal cough without any phlegm 10/10/2021 The patient was seen and examined in ICU She has been feeling much better today and denies any abdominal discomfort and/or pain Her hemoglobin remains stable more than 9 and denies any fever and/or chills 10/11/2021 The patient was seen and examined in medical floor She remains weak and lethargic but otherwise denies any complaints She has been getting physical therapy 10/12/2021 The patient was seen and examined in medical floor She does not have any symptoms except weakness She has been getting PT and OT 10/13/2021 The patient was seen and examined in medical floor She remains weak and lethargic but denies any other symptoms She has been getting physical therapy and surgery signed out 10/14/2021 The patient was seen and examined in medical floor She remains stable and will be discharged home this afternoon She denies any symptoms 10/15/2021 The patient was seen and examined in medical floor She remains too weak and lethargic and pleasantly confused Denies any pain, shortness of breath or any other discomfort Discussed with the daughter in presence of the patient-not yet ready to be discharged and may need rehab Review of Systems Review of Systems: All systems reviewed and are unremarkable except as noted below Musculoskeletal: Generalized weakness without any acute arthritis Physical Exam Physical Exam: Sitting on the bed without any acute distress Constitutional: well developed, well nourished, + ill appearing and + obese Eyes: PERRL, conjunctivae normal, anicteric sclerae ENMT: external ear and nose normal, oropharynx normal Neck: trachea midline, no thyromegaly Respiratory: no respiratory distress and no cough Auscultation: + diminished lung sounds and + crackles (Minimal crackles at the bases) Cardiovascular: Rate/Rhythm: regular rate and regular rhythm; not tachycardic Heart Sounds: normal S1 and normal S2; no murmur Extremities: no edema Gastrointestinal (Abdomen): Inspection/Auscultation: normal bowel sounds; abdomen not distended Percussion/Palpation: abdomen soft; abdomen nontender Psychiatric: A+Ox3, euthymic affect Lymphatic: no cervical or axillary lymphadenopathy Results & Data Results & Data ([facility]) Vital Signs (Past 12 Hours) Vital Signs Temp Pulse Resp BP Pulse Ox 10/15/21 08:27 36.7 C 73 16 122/73 95 Laboratory Results Short CBC 10/15/21 Range/Units 07:41 WBC 12.67 H (4.8-10.8) K/uL Hgb 11.3 L (12.0-16.0) g/dL Hct 36.8 L (37-47) % Plt Count 160 (130-400) K/uL BMP 10/15/21 07:41 Sodium 141 Potassium 4.1 D Chloride 111 H Carbon Dioxide 23 BUN 15 Creatinine 0.54 L Glucose 124 H Calcium 8.4 L Liver Function 10/15/21 Range/Units 07:41 Total Bilirubin 0.9 (0.2-1) mg/dl AST 29 (15-37) U/L ALT 86 H (12-78) U/L Alkaline Phosphatase 122 H (45-117) U/L Albumin 2.0 L (3.4-5.0) gm/dl Medications Administered Current Inpatient Medications Albuterol (Albuterol 0.083% Nebu Soln 3 Ml Vial) 2.5 mg INH QID PRN PRN Reason: sob Stop: 11/09/21 19:16 Last Admin: 10/10/21 21:03 Dose: 2.5 mg Documented by: Albuterol (Albuterol Hfa 8 Gm Inhaler) 2 puffs INH QID PRN PRN Reason: Shortness Of Breath Stop: 11/09/21 19:16 Diclofenac Sodium (Diclofenac Sod 1% Gel 100 Gm Tube) 2 gm EXT QID PRN PRN Reason: Pain Stop: 11/09/21 19:16 Furosemide (Furosemide 20 Mg Tab) 20 mg PO DAILY PRN PRN Reason: Fluid Retention Stop: 11/09/21 19:16 Guaifenesin (Guaifenesin 600 Mg Tabcr) 1,200 mg PO BID ALEX Stop: 11/09/21 20:59 Last Admin: 10/15/21 08:24 Dose: 1,200 mg Documented by: Promethazine HCl 6.25 mg/ (Sodium Chloride) 50.25 mls @ 201 mls/hr IV Q6H PRN PRN Reason: Nausea And Vomiting Stop: 11/08/21 03:27 Potassium Chloride/Dextrose/Sod Cl (D5nss + 20meq Kcl) 20 meq in 1,000 mls @ 80 mls/hr IV .[id number] [facility] Stop: 10/15/21 17:14 Last Infusion: 10/15/21 15:28 Dose: 0 mls/hr Documented by: Tramadol HCl (Tramadol Hcl 50 Mg Tablet) 25 mg PO Q4H PRN PRN Reason: Pain Stop: 11/08/21 03:27 Vitamin D (Cholecalciferol 1,000 Units 25 Mcg Tab) 2,000 units PO QAM [facility] Stop: 11/10/21 08:59 Last Admin: 10/15/21 08:24 Dose: 2,000 units Documented by: (1) Spleen hematoma without rupture of capsule, without open wound into cavity Encounter type: initial encounter Qualified Code(s): S36.029A - Unspecified contusion of spleen, initial encounter
[2021-10-16] MEDS: guaiFENesin 600 MG TABCR PO SCH ×2 (09:02→20:12)
[2021-10-16] MEDS: CHOLECALCIFEROL 1,000 UNITS 25 MCG TAB PO SCH (09:03)
--- NOTE | 2021-10-16 09:58 | XRay Report ---
XR chest 1V portable HISTORY: cough COMPARISON: Chest 10/08/2021. FINDINGS: No pneumothorax. There are old, healed right-sided rib fractures. No evidence for pulmonary edema. Mild interstitial thickening which is likely chronic. Small left and trace right pleural effu sions have increased in size. Left basilar densities are noted. The heart remains borderline enlarged . Rotated study. The right suprahilar nodular density is not identified on this study and is likely o bscured by the overlapping spine. IMPRESSION: 1. Interval involvement of a small left and trace right pleural effusion. 2. Left basilar densities are nonspecific but favor compressive atelectasis from the pleural effusion . 3. The right suprahilar nodular density is not identified on this study and is likely obscured by the overlapping spine. ACT 112: Negative or not required by law. Electronically signed by: Leander Collier M.D. 10/16/2021 9:57 AM
[2021-10-16 12:11] LABS: Hematocrit (blood only) 38.5 % (37-47); Mean Corpuscular Hemoglobin 29.3 pg (25-34); Mean Corpuscular Hgb Conc 31.2 g/dL (32-36); Mean Corpuscular Volume 94.1 fL (80-100); Mean Platelet Volume 10.1 fL (7.4-10.4); Platelet Count 169 K/uL (130-400); RDW Coefficient of Variation 16.8 % (11.5-14.5); RDW Standard Deviation 57.6 fL (36.4-46.3); Red Blood Count 4.09 M/uL (4.2-5.4); White Blood Count 14.06 K/uL (4.8-10.8)
[2021-10-16 12:54] LABS: Calcium 9.2 mg/dl (8.5-10.1); Creatinine Clr Calc Pharmacy 56.2 ml/min; Est GFR (African American) 97.8 ml/min; Est GFR (Non-African American) 84.4 ml/min; Potassium 3.7 mmol/L (3.5-5.1)
--- NOTE | 2021-10-16 14:28 | Hospitalist Progress Note ---
Date of Service October 16, 2021 Assessment & Plan (1) Spleen hematoma without rupture of capsule, without open wound into cavity: (2) Symptomatic anemia: Plan: -Patient presented with generalized weakness and nausea. History of frequent falls dating back to July. -CT ABD/pelvis showed 10.9 x 8.7 x 11.2 cm hemorrhage within the spleen -General surgery consulted, input appreciated. No surgical intervention required. -Received empiric IV Zosyn. Subacute blood loss secondary to traumatic splenic hemorrhage/hematoma (likely from recurrent falls during recent rehab facility stay) -Presenting Hgb 6.7 - received 2 unit PRBC, 1 unit FFP, vitamin K 10 mg. -Hgb 12.0 today Transaminitis w/ coagulopathy -Likely shock liver from hypotension -LFTs improved, INR 1.9 -> 1.2 Abnormal lung sounds -Noted to have some scattered rhonchi on exam -CXR shows small bilateral pleural effusions -Patient denies shortness of breath, saturating well on room air -Normal procalcitonin -proBNP 6900 -? Mild acute on chronic diastolic CHF exacerbation - will trial Lasix 20 mg IV x 1 dose (echo 07/2021-EF 60 to 65%, grade 1 diastolic dysfunction) Leukocytosis -WBC 14 K, afebrile, doubt pulmonary source given normal procalcitonin -Check UA COPD -No signs of acute exacerbation -Continue home inhalers. Patient reportedly on home O2 however saturating well on room air during hospitalization. -History of pulmonary nodules with possible malignancy -patient and family not interested in aggressive work-up as per prior documentation CKD stage III -Had mild RADHA on admission with creatinine 1.4 -Creatinine 0.6 today History of CVA -Consider resuming ASA DVT prophylaxis -Teds/SCDs due to splenic hemorrhage DNR as per patient's prior directives as per family Dispo Was to be discharged over the weekend however daughter felt as though she was too weak to return home. Pursuing placement. Daughter requesting [place]. Patient daughter requesting updates from providers. Ms. Laura Roach, contact #[phone]. Admission and Anticipated Discharge Date Admission Date: October 09, 2021 Supervising Physician Co-Signing Physician Notes Attending addendum The patient was seen and examined in medical floor She remains stable without any shortness of breath and more pain Remains weak and lethargic and pleasantly confused On examination No apparent distress at rest Chestminimal crackles at the bases HeartS1-S2, regular Abdomenbenign Extremitiesnegative for any edema Her labs, imaging studies reviewed Medically stable, received small dose of Lasix for possible CHF Agree with assessment and plan as outlined above by Harriet Bae Subjective Patient seen and examined. Follow-up for subacute blood loss, splenic hemorrhage, hyponatremia, ARF. Patient was to be discharged over the weekend however daughter felt as though she was too weak to go home. Therefore placement is being pursued. Patient is confused however pleasant. Offers no complaints. Does not provide much meaningful history. Physical Exam Constitutional: WD/WN, vitals as above no acute distress Respiratory: normal respiratory effort and + cough (Moist, nonproductive); no respiratory distress Auscultation: + rhonchi (Bilateral, mid to lower lung m[place]) Cardiovascular: Rate/Rhythm: regular rate and regular rhythm Vessels: normal peripheral pulses Extremities: no edema Gastrointestinal (Abdomen): Percussion/Palpation: abdomen soft; abdomen nontender Skin: no rashes, warm and dry Neurologic: no focal motor deficits Psychiatric: Orientation: alert and oriented to person; + not oriented to place and + not oriented to time Results & Data Results & Data ([facility]) Vital Signs (Past 12 Hours) Vital Signs Temp Pulse Resp BP Pulse Ox 10/16/21 07:46 36.8 C 73 16 113/69 97 Laboratory Results Short CBC 10/16/21 Range/Units 12:03 WBC 14.06 H (4.8-10.8) K/uL Hgb 12.0 (12.0-16.0) g/dL Hct 38.5 (37-47) % Plt Count 169 (130-400) K/uL BMP 10/16/21 12:03 Sodium 137 Potassium 3.7 Chloride 105 Carbon Dioxide 25 BUN 15 Creatinine 0.61 Glucose 98 Calcium 9.2 Diagnostic Findings Chest X-Ray 10/16/21 09:30 XR chest 1V portable HISTORY: cough COMPARISON: Chest 10/08/2021. FINDINGS: No pneumothorax. There are old, healed right-sided rib fractures. No evidence for pulmonary edema. Mild interstitial thickening which is likely chronic. Small left and trace right pleural effusions have increased in size. Left basilar densities are noted. The heart remains borderline enlarged. Rotated study. The right suprahilar nodular density is not identified on this study and is likely obscured by the overlapping spine. IMPRESSION: 1. Interval involvement of a small left and trace right pleural effusion. 2. Left basilar densities are nonspecific but favor compressive atelectasis from the pleural effusion. 3. The right suprahilar nodular density is not identified on this study and is likely obscured by the overlapping spine. ACT 112: Negative or not required by law. Electronically signed by: Leander Collier M.D. 10/16/2021 9:57 AM (1) Spleen hematoma without rupture of capsule, without open wound into cavity Encounter type: initial encounter Qualified Code(s): S36.029A - Unspecified contusion of spleen, initial encounter
[2021-10-16] MEDS ORDERED: FUROSEMIDE INJ 20 MG/2 ML VIAL IV ONE (14:30)
[2021-10-16 16:10] LABS: Appearance Urine Clear (Clear); Bacteria Urine Automated Negative (Negative); Bilirubin Urine Negative (Negative); Blood Urine 2+ (Negative); Color Urine Yellow; Glucose Urine UA Negative (Negative); Ketones Urine Negative (Negative); Leukocyte Esterase Urine 2+ (Negative); Nitrite Urine Negative (Negative); Protein Urine Negative (Negative); Specific Gravity Urine 1.005 (1.000-1.030); Urobilinogen Urine Negative (Negative); WBC Urine Automated >30 /hpf (0-5); pH Urine 5.5 (4.5-7.5)
[2021-10-17 06:43] LABS: Hematocrit (blood only) 37.9 % (37-47); Hemoglobin 12.1 g/dL (12.0-16.0); Mean Corpuscular Hemoglobin 29.7 pg (25-34); Mean Corpuscular Hgb Conc 31.9 g/dL (32-36); Mean Corpuscular Volume 93.1 fL (80-100); Mean Platelet Volume 10.3 fL (7.4-10.4); Platelet Count 188 K/uL (130-400); RDW Coefficient of Variation 16.7 % (11.5-14.5); RDW Standard Deviation 56.9 fL (36.4-46.3); Red Blood Count 4.07 M/uL (4.2-5.4); White Blood Count 13.29 K/uL (4.8-10.8)
[2021-10-17 07:09] LABS: BUN Creatinine Ratio 19.6 (10-20); Calcium 8.8 mg/dl (8.5-10.1); Creatinine Clr Calc Pharmacy 42.4 ml/min; Est GFR (African American) 78.4 ml/min; Est GFR (Non-African American) 67.6 ml/min; Potassium 3.2 mmol/L (3.5-5.1)
[2021-10-17] MEDS ORDERED: POTASSIUM CHLORIDE CRTAB 20 MEQ TABCR PO ONE (08:15)
[2021-10-17] MEDS ORDERED: POTASSIUM CHLORIDE CRTAB 20 MEQ TABCR PO STA (10:09)
[2021-10-17] MEDS: guaiFENesin 600 MG TABCR PO SCH (11:48)
[2021-10-17] MEDS: CHOLECALCIFEROL 1,000 UNITS 25 MCG TAB PO SCH (11:48)
--- NOTE | 2021-10-17 13:38 | Discharge Summary ---
Date of Service October 17, 2021 Admission HPI Per Admitting Provider History obtained from patient, family, and records. Limited history from patient secondary to dementia/impairment Medical history significant for COPD/bronchiectasis, pulmonary nodules (possible malignancy as per records), hypertension, PVD sp surgery, CVA as per records, chronic anemia (baseline hemoglobin 9-10 ), tobacco abuse, dementia, recurrent falls. Last confinement September 20-2020 for hematuria, asymptomatic COVID-19 infection. Patient discharged to [facility]. Patient had to mechanical falls at [facility] during her weeklong stay as per daughter. Patient discharged home last week. Generalized weakness at home the last few days with patient nauseous, having difficulty standing with emesis. Poor fluid intake as per family. Some abdominal soreness noted by the family. Patient noted to have rhonchi on exam, delayed swallowing, suspected aspiration as per home nursing note yesterday. PCP ordered azithromycin and outpatient blood work. Abnormal labs noted with outpatient blood work yesterday. Hemoglobin 6.4, sodium 125, potassium 6.4, creatinine 1.5. Patient sent to the ER for evaluation. SBP 90s at 1 point during ER stay. Vitamin K, tranexamic acid, FFP, 1 unit packed RBC administered at the ER for splenic hematoma following ER provider discussion with [facility] transfusion specialist. 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 Admission Exam Per Admitting Provider GENERAL: comfortable, demented, hard of hearing, no respiratory distress SKIN: Pallor,, warm HEENT: Pale palpebral conjunctivae, no ptosis, dry buccal mucosa NECK : Supple, no tenderness CHEST : Decreased breath sounds, no tenderness HEART : RRR, no obvious murmurs ABDOMEN: Some distention, left-sided tenderness EXTREMITIES : No LE swelling/tenderness, no other conspicuous deformities noted NEUROLOGIC : Demented, no facial asymmetry, hard of hearing, gait and stance not assessed Principal Diagnosis Splenic hematoma Acute blood loss anemia Transaminitis with coagulopathy Discharge Exam Constitutional WD/WN, vitals as above Respiratory normal respiratory effort; no respiratory distress Auscultation: + diminished lung sounds Cardiovascular Rate/Rhythm: regular rate and regular rhythm Vessels: normal peripheral pulses Extremities: no edema Gastrointestinal (Abdomen) Percussion/Palpation: abdomen soft; abdomen nontender Skin no rashes, warm and dry Neurologic no focal motor deficits Psychiatric Orientation: alert, oriented to person and cooperative; + not oriented to place and + not oriented to time Discharge Data Allergies Allergy/AdvReac Type Severity Reaction Status Date / Time No Known Allergies Allergy Verified 10/08/21 23:38 Consultations General surgery, Dr. Cameron Procedures Performed None Ordered Studies CT ABD/pelvis IMPRESSION 10/08/2021: 1. Interval development of a large splenic hematoma, measuring 12 x 12 x 9.3 cm. Adjacent perisplenic hemorrhage. Small to moderate hemoperitoneum. The findings represent splenic rupture. Surgical consultation is recommended. 2. Small right pleural effusion. 3. Bilateral lower lung airspace opacities which have slightly improved since prior CT. CXR IMPRESSION 10/16/2021: 1. Interval involvement of a small left and trace right pleural effusion. 2. Left basilar densities are nonspecific but favor compressive atelectasis from the pleural effusion. 3. The right suprahilar nodular density is not identified on this study and is likely obscured by the overlapping spine. CT OF THE ABDOMEN AND PELVIS WITHOUT CONTRAST CLINICAL HISTORY: elevated LFTs COMPARISON STUDY: CT of the abdomen and pelvis September 04, 2021. TECHNIQUE: Axial images of the abdomen and pelvis were obtained without IV contrast. Images were reviewed in the axial, sagittal, and coronal planes. Automated exposure control was utilized for the study. A dose lowering technique was utilized adhering to the principles of ALARA. FINDINGS: Note is made of multiple groundglass opacities and tree-in-bud nodules within the lower lungs. These include a 1.3 cm subpleural irregular left lower lobe nodular opacity on image 41 of 416 and a 1.5 cm groundglass opacity within the right lower lobe. Overall, the findings have mildly improved since prior CT of September 04, 2021. A small right pleural effusion is noted. No pneumatosis, free air or portal venous gas is present. Evaluation of the abdomen and pelvis is suboptimal on this unenhanced exam. A large mixed attenuation splenic hematoma has developed since CT of September 04, 2021. This measures approximately 12 x 12 x 9.3 cm. There is adjacent hemorrhage. Hemoperitoneum is noted within the paracolic gutters as well as the pelvis. Bifurcated aortoiliac stent graft is suboptimally assessed on this exam but is unchanged. Since prior CT. Unenhanced images of the liver, kidneys and pancreas are unremarkable. Bilateral adrenal nodules are unchanged. These are likely benign. There is no evidence for a bowel obstruction. Bladder is mildly distended. Left femoral internal fixation is noted. Healing fractures of the right superior and inferior pubic rami are noted. IMPRESSION: 1. Interval development of a large splenic hematoma, measuring 12 x 12 x 9.3 cm. Adjacent perisplenic hemorrhage. Small to moderate hemoperitoneum. The findings represent splenic rupture. Surgical consultation is recommended. 2. Small right pleural effusion. 3. Bilateral lower lung airspace opacities which have slightly improved since prior CT. ACT 112: Negative or not required by law. Electronically signed by: Booker Hamm M.D. 10/09/2021 9:38 AM Dictated:10/09/21925 Transcribed: 10/09/21934 XR chest 1V portable CLINICAL HISTORY: coarse sounds, h/o bronchiectasis/COPD COMPARISON STUDY: Chest CT August 15, 2021. Chest radiograph August 29, 2021 FINDINGS: Electronic device projects over the left chest. Cardiomediastinal silhouette is stable. There is no pneumothorax or pleural effusion. Interstitial thickening is similar to prior exam. Right upper lobe paramediastinal nodule is noted. This is better depicted on prior chest CT. There are old right rib fractures. No consolidation is identified to suggest pneumonia. IMPRESSION: 1. No significant change in appearance of the chest. 2. Redemonstration of an indeterminate right upper lobe nodule. Malignancy cannot be excluded. Follow-up chest CT is recommended. ACT 112: Positive. There are findings on this exam that require communication between the performing entity and the patient following Patient Test Result Information Act ([place] Act 112) guidelines. Electronically signed by: Booker Hamm M.D. 10/09/2021 7:54 AM Dictated:10/09/21750 Transcribed: 10/09/21750 XR chest 1V portable HISTORY: cough COMPARISON: Chest 10/08/2021. FINDINGS: No pneumothorax. There are old, healed right-sided rib fractures. No evidence for pulmonary edema. Mild interstitial thickening which is likely chronic. Small left and trace right pleural effusions have increased in size. Left basilar densities are noted. The heart remains borderline enlarged. Rotated study. The right suprahilar nodular density is not identified on this study and is likely obscured by the overlapping spine. IMPRESSION: 1. Interval involvement of a small left and trace right pleural effusion. 2. Left basilar densities are nonspecific but favor compressive atelectasis from the pleural effusion. 3. The right suprahilar nodular density is not identified on this study and is likely obscured by the overlapping spine. ACT 112: Negative or not required by law. Electronically signed by: Leander Collier M.D. 10/16/2021 9:57 AM Dictated:10/16/21954 Transcribed: 10/16/21954 Hospital Course (1) Spleen hematoma without rupture of capsule, without open wound into cavity: (2) Symptomatic anemia: -Patient presented with generalized weakness and nausea. History of pravin quent falls dating back to July. -CT ABD/pelvis showed 10.9 x 8.7 x 11.2 cm hemorrhage within the spleen -General surgery consulted. No surgical intervention required. -Received empiric IV Zosyn. Subacute blood loss secondary to traumatic splenic hemorrhage/hematoma (likely from recurrent falls during recent rehab facility stay) -Presenting Hgb 6.7 - received 2 unit PRBC, 1 unit FFP, vitamin K 10 mg. -Hgb 12.1 10/17/2021 Transaminitis w/ coagulopathy -Likely shock liver from hypotension -LFTs improved, INR 1.9 -> 1.2 -Statin held, continue to hold pending repeat outpatient LFTs -Recommend repeating LFTs within the next week Mild acute on chronic diastolic CHF exacerbation -Noted to have some scattered rhonchi on exam on 10/16 -CXR shows small bilateral pleural effusions -Patient denied shortness of breath, saturating well on room air -Normal procalcitonin -proBNP 6900 -Received Lasix 20 mg IV x 1 dose on 10/16 with improvement in symptoms -Continue as needed Lasix at discharge -echo 07/2021-EF 60 to 65%, grade 1 diastolic dysfunction Leukocytosis -WBC 14 K on 10/16 -> 13 K on 10/17 -afebrile, doubt pulmonary source given normal procalcitonin -UA abnormal however suggest contaminant, patient asymptomatic. Will hold on treatment at this time. Urine culture pending at discharge. COPD -No signs of acute exacerbation -Continue home inhalers. Patient reportedly on home O2 however saturating well on room air during hospitalization. -History of pulmonary nodules with possible malignancy -patient and family not interested in aggressive work-up as per prior documentation CKD stage III -Had mild RADHA on admission with creatinine 1.4 -Creatinine 0.8 10/17 History of CVA -ASA was held due to splenic hematoma, resumed on discharge Total Time Total Time Spent Total Time Spent (In Minutes): 40 Discharge Plan Discharge Items Patient Disposition: [facility] Reason For Visit: TRANSIENT HYPOTENSION, SPLENIC BLEED Discharge Diagnosis: Splenic hematoma, hypotension, symptomatic anemia. COPD. Elevated liver function tests Activity: As commented below Activity Comment: Continue patient PT and OT Non-emergency contact: Primary Care Provider Call non-emergency contact if: you have any medication questions Follow-up/Referrals: Raz Hayes MD [Primary Care Provider] - (Date & Time 10/20/2021 10:40 AM Provider Raz Hayes MD Department [facility] ) Diet: Regular Addtl Attending Provider Instructions: Patient admitted for traumatic splenic hematoma likely secondary to repetitive falls. Required PRBC transfusion. Also had elevated LFTs, likely secondary to shock liver. Pravastatin remains on hold. Recommend repeating LFTs within the next week. Noted to have abnormal UA, likely contaminant. Urine culture pending at the time of discharge. Pending Studies at Discharge: Yes Studies:: Urine culture Stand-Alone Forms: [employer], Smoking Cessation Skilled Items Patient informed of condition?: Yes DNR: Yes Discharge Level of Care: Skilled Communicable Disease: No Discharge Prognosis: Stable Lines: None Urinary Catheter: No Medications and DC Order Prescriptions: Continued sertraline 50 mg tablet 50 mg PO QPM RF: 0 acetylcysteine 200 mg/mL (20 %) solution 2.5 ml inhalation Q12H RF: 0 polyethylene glycol 3350 [Miralax] 17 gram Powder In Packet 17 g PO DAILY RF: 0 ascorbic acid (vitamin C) [Vitamin C] 500 mg Tablet 500 mg PO DAILY RF: 0 Culturelle 10 billion cell Capsule 1 cap PO DAILY RF: 0 sodium chloride 0.9 % solution for nebulization 3 ml INHALATION BID RF: 0 docusate sodium 100 mg Tablet 100 mg PO BID RF: 0 Anoro Ellipta 62.5-25 mcg/actuation Blister With Device 1 ea inhalation DAILY Qty: 14 RF: 0 multivitamin Tablet 1 tab PO DAILY Qty: 7 RF: 0 albuterol sulfate 2.5 mg /3 mL (0.083 %) solution for nebulization 2.5 mg inhalation QID PRN (Reason: sob) Qty: 3 RF: 0 sertraline 100 mg tablet 100 mg PO QPM Qty: 7 RF: 0 aspirin 81 mg Tablet,Delayed Release (Dr/Ec) 81 mg PO DAILY Qty: 7 RF: 0 furosemide 20 mg tablet 20 mg PO DAILY PRN (Reason: Fluid Retention) Qty: 7 RF: 0 albuterol sulfate 90 mcg/actuation HFA aerosol inhaler 90 mcg INHALATION UD PRN (Reason: Shortness Of Breath) Qty: 6.7 RF: 0 diclofenac sodium 1 % gel 1 ea TOPICAL QID PRN (Reason: Pain) Qty: 100 RF: 0 cholecalciferol (vitamin D3) [Vitamin D3] 50 mcg (2,000 unit) Capsule 50 mcg PO QAM Qty: 7 RF: 0 guaifenesin [Mucinex] 600 mg Tablet Extended Release 12hr 1,200 mg PO BID Qty: 7 RF: 0 Discontinued pravastatin 40 mg tablet 40 mg PO HS RF: 0 azithromycin 250 mg Tablet 250 - 500 mg PO DAILY RF: 0 Discharge Orders: Discharge Order (Routine); Ordered 10/17/21 Ordered By: Harriet Wharton Admission Data Admit Date/Time: 10/09/21 01:15 Attending Provider: Mark Torres Admit Provider: Javi Pena Primary Care Provider: Raz Hayes Other Interventions: Discharge Summary Assessment (RN) Last Done: 10/17/21 12:34
--- NOTE | 2021-10-18 18:10 | Communication Note ---
Date of Service: October 18, 2021 Urine culture resulted the grew Chandrika glabrata. Diflucan 200 mg daily x 7 days sent to facility pharmacy. I attempted to call [facility] to update them however there was no answer. Message was left with request for return call.
== END 2021-10-17 15:24 | DRG 814 ==
LOC: ED 20:27 → EDINP 10-09 01:15 → SUATTDRO 10-09 01:15 → 1E 10-09 02:18 → 3N 10-10 15:20
DX: F32.A Depression, unspecified; I73.9 Peripheral vascular disease, unspecified; F17.210 Nicotine dependence, cigarettes, uncomplicated; I10 Essential (primary) hypertension; D62 Acute posthemorrhagic anemia; I95.9 Hypotension, unspecified; E87.1 Hypo-osmolality and hyponatremia; Z66 Do not resuscitate; Z79.82 Long term (current) use of aspirin; E78.5 Hyperlipidemia, unspecified; Z86.16 Personal history of COVID-19; Z86.73 Personal history of transient ischemic attack (TIA), and cerebral infarction without residual deficits; D73.5 Infarction of spleen; N17.9 Acute kidney failure, unspecified; W19.XXXA Unspecified fall, initial encounter; J44.9 Chronic obstructive pulmonary disease, unspecified; J94.2 Hemothorax; S36.029A Unspecified contusion of spleen, initial encounter; F03.90 Unspecified dementia, unspecified severity, without behavioral disturbance, psychotic disturbance, mood disturbance, and anxiety; Z86.711 Personal history of pulmonary embolism; K72.00 Acute and subacute hepatic failure without coma; Z87.01 Personal history of pneumonia (recurrent); D72.829 Elevated white blood cell count, unspecified; N18.30 Chronic kidney disease, stage 3 unspecified; J96.10 Chronic respiratory failure, unspecified whether with hypoxia or hypercapnia